=== PATIENT | male | born 1950 | race Caucasian/White ===

== ENCOUNTER 2024-02-09 11:37 | Inpatient (IN) ==
[2024-02-09 12:25] LABS: Basophils # (auto) 0.08 K/uL (0.00-0.20); Basophils % (auto) 0.8 %; Eosinophils # (auto) 0.15 K/uL (0.00-0.50); Eosinophils % (auto) 1.4 %; Hematocrit (blood only) 46.9 % (42.0-52.0); Hemoglobin 14.6 g/dl (14.0-18.0); Immature Granulocytes # (auto) 0.09 K/uL (0.01-0.20); Immature Granulocytes % (auto) 0.9 %; Lymphocytes # (auto) 2.29 K/uL (1.20-3.40); Lymphocytes % (auto) 21.9 %; Mean Corpuscular Hemoglobin 26.6 pg (25.0-34.0); Mean Corpuscular Hgb Conc 31.1 g/dL (32.0-36.0); Mean Corpuscular Volume 85.6 fL (80.0-100.0); Mean Platelet Volume 10.4 fL (9.4-12.4); Monocytes # (auto) 0.92 K/uL (0.11-0.59); Monocytes % (auto) 8.8 %; Neutrophils # (auto) 6.92 K/uL (1.40-6.50); Neutrophils % (auto) 66.2 %; Platelet Count 218 K/uL (130-400); RDW Coefficient of Variation 16.4 % (11.5-14.5); RDW Standard Deviation 50.5 fL (36.4-46.3); Red Blood Count 5.48 M/uL (4.70-6.10); White Blood Count 10.45 K/ul (4.8-10.8)
--- NOTE | 2024-02-09 12:36 | XRay Report ---
XR chest 1V not portable HISTORY: 74 years-old Male Chest pain, nonspecific COMPARISON: None TECHNIQUE: PA view of the chest FINDINGS: Cardiac silhouette is enlarged. No overt pulmonary edema, pneumothorax or pleural effusion. Mild ill- defined right infrahilar opacities. Bones appear grossly intact. IMPRESSION: 1. Cardiomegaly without pulmonary edema. 2. Mild right infrahilar opacities may represent atelectasis versus pneumonia. ACT 112: Negative or not required by law. The above report was generated using voice recognition software. It may contain grammatical, syntax o r spelling errors. Electronically signed by: Medhat Hunt M.D. 02/09/2024 12:34 PM
[2024-02-09 12:41] LABS: Albumin Globulin Ratio 1.6 (0.9-2); Albumin Level 4.7 gm/dl (3.4-5.0); BUN Creatinine Ratio 27.2 (10-20); Calcium 10.3 mg/dl (8.6-10.3); Creatinine Clr Calc Pharmacy 73.3 ml/min; Globulin 2.9 gm/dl (2.5-4.0); Total Protein 7.6 gm/dl (6.0-8.3)
[2024-02-09 12:47] LABS: Troponin I High Sensitivity 23.6 pg/ml (0-20)
[2024-02-09 12:51] LABS: INR 1.1 (0.9-1.1); Partial Thromboplastin Time 27 Seconds (21-31); Prothrombin Time 11.6 Seconds (9.0-12.0)
--- NOTE | 2024-02-09 16:07 | History & Physical Report ---
<Statement entered by Mark Anthony Johnston, - 02/09/24 17:20> I have seen and examined the patient and have discussed the case with the provider above. I have reviewed the advanced practitioner's documentation, and I agree with, and take responsibility for that plan of care. Patient seen while on the monitored unit. Patient reports that sublingual nitroglycerin completely resolved his pain. Physical exam: Lungs: Decreased breath sounds, no wheezes CV: S1-S2 irregular, systolic murmur Reviewed diagnostics Troponins mildly elevated Patient with a convincing history for unstable angina. Discussed plan of care as outlined below with KIMBERLY Date of Service February 09, 2024 Assessment & Plan (1) Atypical chest pain: (2) Atrial flutter: (3) Moderate aortic valve stenosis: (4) Hypertension: (5) Hyperlipidemia: Plan This is a 74-year-old male who has a significant past medical history of paroxysmal atrial fibrillation/flutter with hx of CTI ablation 04/2023, hypertrophic cardiomyopathy, HTN, HLD, aortic valve stenosis, gout, history of retinal detachment who presents to ED secondary to chest pain. He follows with [facility]. His last echocardiogram was 12/01/23 with EF 65% which read a severely enlarged left atrium, moderate AV stenosis, mild AVR and mild MR. Atypical Chest Pain Persistent Atrial flutter/fibrillation with previous hx of CTI ablation 04/2023- rate controlled Moderate aortic valve stenosis Elevated troponin admit to PCU concerning sx of angina in setting of risk factors including HTN, HLD, overweight continue metoprolol, losartan and eliquis NPO after midnight for possible stress test cycle trops will repeat echo for WMA, last echo 11/30 mod , persevered LVEF lipids, a1c in a.m. HTN: chronic, stable, mildly elevated in ED, continue metoprolol, losartan HLD: chronic, stable continue statin Alcohol use: pt admits to drinking 2-3 beers/day. he has gone a period of time w/o it and has not had any adverse effect, monitor. DVT ppx: eliquis FULL CODE PCP: Micah Dispo: admit to PCU Pt was seen and examined in collaboration with Dr. Johnston, please see addendum I spent a total of 60 minutes reviewing notes, outpatient records, labs, medication, coordinating, documenting and providing care for this patient excluding time spent in the performance of separately billed services. History of Present Illness Chief Complaint: Chest pain. Primary Care Provider: Rashawn Obrien MD This is a 74-year-old male who has a significant past medical history of paroxysmal atrial fibrillation/flutter with hx of CTI ablation 04/2023, hypertrophic cardiomyopathy, HTN, HLD, aortic valve stenosis, gout, history of retinal detachment who presents to ED secondary to chest pain. He follows with [facility]. His last echocardiogram was 12/01/23 with EF 65% which read a severely enlarged left atrium, moderate AV stenosis, mild AVR and mild MR. He was last seen in cardiology clinic in December. He was noted to be back in atrial fibrillation although not symptomatic. Per documentation he does have chronic shortness of breath and dizziness. At this point in time there was no changes in his medications and a repeat echo was to be done in approximately 6 months. Of note patient was recently transition from warfarin to Eliquis 2 weeks ago. He has not missed any medications. He reports that he presents to ED today due to having 2 episodes of chest pain over the last 2 days. He was out hunting with his son. He walked approximately 1.5 miles and had to have frequent stops due to being shortness of breath. When he was resting he developed substernal chest pain that was described as, "[id number] on his chest," that radiated to his left neck and left shoulder. Pain was a 20 out of 10 when it started this morning. It lasted approximately 2 hours. He also reports feeling more short of breath than usual. He states right now he is still feeling the discomfort as a 4 out of 10. He denies any radiating symptoms at this time. He denies any recent illness. He denies his chest pain getting worse with any particular position or movement. He did not eat anything unusual. His symptoms are not made worse with deep breathing. He denies any fever, chills, sweats, lightheadedness, dizziness, cough, hemoptysis, diaphoresis, nausea, vomiting, abdominal pain or change in his bowel or urinary habits. Patient's outpatient records were reviewed. History also obtained from and family member at bedside. Denies tobacco use. He does drink 2-3 beers a day. He has gone 2-3 days w/o and has not had any signs of withdrawal Allergies Allergy/AdvReac Type Severity Reaction Status Date / Time No Known Allergies Allergy Unknown Verified 10/15/21 06:55 Home Medications Medication Instructions Recorded Confirmed Type allopurinol 300 mg tablet 300 mg PO QAM 12/07/19 02/09/24 History atorvastatin 40 mg tablet 40 mg PO QAM 12/07/19 02/09/24 History metoprolol succinate 100 mg 100 mg PO QAM 12/07/19 02/09/24 History tablet,extended release 24 hr losartan 100 mg tablet 100 mg PO DAILY 05/06/23 02/09/24 History multivit,Ca,min-iron 8 mg-folic 1 tab PO DAILY 05/06/23 02/09/24 History acid 200 mcg-lycopene 600 mcg tablet (Centrum Men) prednisolone acetate 1 % eye 1 drp ophthalmic (eye) DAILY 05/06/23 02/09/24 History drops,suspension sildenafil 100 mg tablet 100 mg PO DAILY PRN Erectile 05/06/23 02/09/24 History Dysfunction apixaban 5 mg tablet (Eliquis) 5 mg PO BID 02/09/24 02/09/24 History Past Med/Surg History Problem List (Updated 02/09/24 @ 16:55 by Brynn Jang PA-C) Moderate aortic valve stenosis Atrial flutter Atypical chest pain Encounter for pre-operative examination Obesity Medical History Heart valve disease on [place] for this per patient for prevention Gout CAD (coronary artery disease) follows Dr. 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 Beliefs That Will Affect Care: None Current Living Situation: Spouse Feels Safe at Home: Yes Assistive Devices: Denture - Upper and Denture - Lower Review of Systems Review of Systems: All systems reviewed & are unremarkable except as noted in HPI & below Physical Exam Physical Exam: Constitutional: WD/WN, vitals as above, NAD, sitting up in bed, pleasant, conversing easily Head: Normocephalic, Atraumatic Eyes: PERRL, conjunctivae normal, anicteric sclerae ENMT: external ear and nose normal, oropharynx normal Neck: trachea midline, no thyromegaly normal visual inspection Respiratory: normal respiratory effort, lungs clear to auscultation, no wheeze, rales, rhonchi. Normal insp/exp effort, no accessory muscle use Cardiovascular: RRR, no murmur, no edema Vessels: no JVD or carotid bruit Chest: normal inspection of chest Abdomen: normal bowel sounds, soft, nontender, no hepatosplenomegaly Musculoskeletal: no cyanosis or clubbing, extremities motor strength 5/5 Skin: no rashes, warm and dry normal turgor Neurologic: PERRL, EOMI, accommodation nl, no face palsy, no dysarthria CN's II-XI intact bilaterally and moves all extremities Psychiatric: A+Ox3, euthymic affect Lymphatic: no cervical or axillary lymphadenopathy : deferred Results & Data Results & Data Vital Signs (Past 12 Hours) Vital Signs Temp Pulse Pulse Resp BP BP Pulse Ox 02/09/24 15:23 64 02/09/24 15:22 66 96 02/09/24 15:22 66 18 152/81 H 96 02/09/24 11:44 36.6 C 66 20 148/92 H 96 O2 Del Method 02/09/24 15:23 02/09/24 15:22 Room Air 02/09/24 15:22 Room Air 02/09/24 11:44 Room Air Laboratory Results I have independently reviewed and interpreted patient's admitting labs including CBC, CMP, PTT, PT/INR, mag and troponin. Diagnostic Findings Chest X-Ray 02/09/24 11:47 XR chest 1V not portable HISTORY: 74 years-old Male Chest pain, nonspecific COMPARISON: None TECHNIQUE: PA view of the chest FINDINGS: Cardiac silhouette is enlarged. No overt pulmonary edema, pneumothorax or pleural effusion. Mild ill-defined right infrahilar opacities. Bones appear grossly intact. IMPRESSION: 1. Cardiomegaly without pulmonary edema. 2. Mild right infrahilar opacities may represent atelectasis versus pneumonia. ACT 112: Negative or not required by law. The above report was generated using voice recognition software. It may contain grammatical, syntax or spelling errors. Electronically signed by: Medhat Hunt M.D. 02/09/2024 12:34 PM ECG Additional Comments: I have independently reviewed and interpreted patient's admitting EKG which revealed: atrial fibrillation 63 bpm, ST depressions V3-V6 which are present on previous ecg but more pronounced today. COVID-19 Results Results COVID-19 Adm Lab Results: RBC 5.48 M/uL (4.70-6.10) 02/09/24 WBC 10.45 K/ul (4.8-10.8) 02/09/24 Hgb 14.6 g/dl (14.0-18.0) 02/09/24 Hct 46.9 % (42.0-52.0) 02/09/24 Plt Count 218 K/uL (130-400) 02/09/24 Neutrophils (%) (Auto) 66.2 % 02/09/24 Lymphocytes (%) (Auto) 21.9 % 02/09/24 Monocytes # (Auto) 0.92 K/uL (0.11-0.59) H 02/09/24 Eosinophils # (Auto) 0.15 K/uL (0.00-0.50) 02/09/24 Immature Granulocyte % (Auto) 0.9 % 02/09/24 Neutrophils # (Auto) 6.92 K/uL (1.40-6.50) H 02/09/24 Lymphocytes # (Auto) 2.29 K/uL (1.20-3.40) 02/09/24 Monocytes # (Auto) 0.92 K/uL (0.11-0.59) H 02/09/24 Eosinophils # (Auto) 0.15 K/uL (0.00-0.50) 02/09/24 Basophils # (Auto) 0.08 K/uL (0.00-0.20) 02/09/24 Immature Granulocyte # (Auto) 0.09 K/uL (0.01-0.20) 4 Na 139 mmol/L (136-145) 02/09/24 K 4.0 mmol/L (3.5-5.1) 02/09/24 Cl 103 mmol/L (98-107) 02/09/24 CO2 30 mmol/L (21-32) 02/09/24 Anion Gap 6 (3-11) 02/09/24 BUN 28 mg/dl (6-23) H 02/09/24 Creatinine 1.03 mg/dl (0.6-1.4) 02/09/24 BUN/Creatinine Ratio 27.2 (10-20) H 02/09/24 Glucose Level 95 mg/dl (70-99(Fasting)) 02/09/24 Ca 10.3 mg/dl (8.6-10.3) 02/09/24 Total Bilirubin 1.0 mg/dl (0.2-1.0) 02/09/24 AST/SGOT 28 U/L (13-39) 02/09/24 ALT/SGPT 32 U/L (7-52) 02/09/24 Alkaline Phosphatase 67 U/L (34-104) 02/09/24 Total Protein 7.6 gm/dl (6.0-8.3) 02/09/24 Albumin 4.7 gm/dl (3.4-5.0) 02/09/24 Globulin 2.9 gm/dl (2.5-4.0) 02/09/24 Albumin/Globulin Ratio 1.6 (0.9-2) 02/09/24 PTT 27 Seconds (21-31) 02/09/24 INR 1.1 (0.9-1.1) 02/09/24 Chest X-Ray 02/09/24 Code Status & VTE Plan Code Status FULL CODE VTE Prophylaxis Plan VTE Prophylaxis will be ordered: No Reason for no VTE drug order: Treatment not indicated
[2024-02-09] MEDS: NITROGLYCERIN SL 0.4 MG/TAB TAB SL STA (16:35)
--- NOTE | 2024-02-09 16:38 | Emergency Department Note ---
Impression & Plan Atypical chest pain, Chest pain ED Provider Note NAME: SHAY ROOT AGE: 74 SEX: M : 1950 ARRIVES VIA: Walk-In INFORMANT: Patient, ED PROVIDER(S): Delfina Dolan MD CHIEF COMPLAINT: Chest pain HPI: This is a 74-year-old male presenting for chest pain. Patient notes that he has pins and needle type sensation across his chest. This began yesterday. His history of atrial fibrillation on Eliquis. He has previous ablations for this. He has not had a recent echo or stress test. His family then tried ginseng that he has had radiation of pain into his neck and left arm as well. He is on some shortness of breath, at rest as well as specifically with ambulation/exertion. This never happened before. Patient has had no previous history of DC. ROS: See above HPI for pertinent positives & negatives. A total of 10 systems reviewed and were otherwise negative. PAST MEDICAL HISTORY: See Below PAST SURGICAL HISTORY: See Below FAMILY HISTORY: See Below SOCIAL HISTORY: See Below HOME MEDICATIONS: See Below ALLERGIES: See Below VITALS: See Below PHYSICAL EXAMINATION: General: resting comfortably in no acute distress Head: Normocephalic and atraumatic Eyes: Normal inspection, extraocular muscles intact Ear, nose, throat: Normal external exam Neck: Normal range of motion Respiratory: lungs clear to auscultation bilaterally Cardiovascular: Regular rate/rhythm, no murmur GI: soft, nontender, no guarding or rebound Extremities: nontender, moves all extremities Neuro: The patient awake and alert, appropriately conversive, no focal deficits, symmetric faces Skin: Warm, dry, and intact MEDICAL DECISION MAKING: This is a 74-year-old male presenting for chest pain. Concern for ACS clinically. Also consider atrial fibrillation, PE, dissection. -ECG independently interpreted by me with likely atrial flutter at a rate of 63, normal axis, normal QRS, normal QTc, significant ST segment depression/T wave inversion in the lateral leads, appears to be baseline no ST segment elevations consistent with STEMI criteria -Bloodwork is reviewed showing slightly elevated troponin. Otherwise bloodwork is reviewed showing no significant leukocytosis, anemia, electrolyte or creatinine abnormality -Chest x-ray as Independently interpreted by me reveals cardiomegaly, no pleural effusion -With patient's current chest pain, ration of pain into his left neck and arm in addition to previous EKG, do believe admission is currently required for further ACS rule out. -Discussed care with hospital service for admission. Differential diagnosis: ACS, PE, dissection, pneumonia Independent History obtained from: Daughter and Diagnostics interpreted by me: ECG: See above Cardiac Monitoring: An order was placed for continuous cardiac monitoring. The monitor shows a rate of 64 with atrial flutter rhythm. Past Med/Surg History Problem List (Updated 02/09/24 @ 18:05 by Delfina Dolan MD) Chest pain (Acute) Moderate aortic valve stenosis Atrial flutter Atypical chest pain (Acute) Encounter for pre-operative examination Obesity Medical History Heart valve disease on [facility] for this per patient for prevention Gout CAD (coronary artery disease) follows Dr. 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); Do You Dip or Chew Tobacco: No; Hx Alcohol Use: Yes Alcohol type: beer Hx Substance Use: No Preferred Language: Burundian Communication Ability: Effective Medicine Tech Required: No Beliefs That Will Affect Care: None Current Living Situation: Spouse Feels Safe at Home: Yes Assistive Devices: Denture - Upper and Denture - Lower Allergies Allergies Allergy/AdvReac Type Severity Reaction Status Date / Time No Known Allergies Allergy Unknown Verified 10/15/21 06:55 Home Meds Home Medications Medication Instructions Recorded Confirmed allopurinol 300 mg tablet 300 mg PO QAM 12/07/19 02/09/24 atorvastatin 40 mg tablet 40 mg PO QAM 12/07/19 02/09/24 metoprolol succinate 100 mg 100 mg PO QAM 12/07/19 02/09/24 tablet,extended release 24 hr losartan 100 mg tablet 100 mg PO DAILY 05/06/23 02/09/24 multivit,Ca,min-iron 8 mg-folic 1 tab PO DAILY 05/06/23 02/09/24 acid 200 mcg-lycopene 600 mcg tablet (Centrum Men) prednisolone acetate 1 % eye 1 drp ophthalmic (eye) DAILY 05/06/23 02/09/24 drops,suspension sildenafil 100 mg tablet 100 mg PO DAILY PRN Erectile 05/06/23 02/09/24 Dysfunction apixaban 5 mg tablet (Eliquis) 5 mg PO BID 02/09/24 02/09/24 Results & Data (ED) Vital Signs Vital Signs - 24 hr 02/09/24 11:44 02/09/24 15:22 02/09/24 15:22 Temperature 36.6 C Temperature Source Temporal Artery Scan Pulse Rate 66 66 Pulse Rate [Apical] 66 Respiratory Rate 20 18 Respiratory Effort / Characteristics Non-Labored Spontaneous Non-Labored Spontaneous Respiratory Depth Normal Normal Respiratory Pattern Regular Regular Blood Pressure 148/92 H Blood Pressure [Left Arm] 152/81 H Blood Pressure Mean 110 Blood Pressure Mean [Left Arm] 104 Pulse Oximetry 96 96 96 Oxygen Delivery Method Room Air Room Air Room Air Sepsis Recent Fever Within 48 Hours No Sepsis New/Unexplained Change in Mental Status No Sepsis Action Taken by Nursing No Action Required 02/09/24 15:23 Temperature Temperature Source Pulse Rate 64 Pulse Rate [Apical] Respiratory Rate Respiratory Effort / Characteristics Respiratory Depth Respiratory Pattern Blood Pressure Blood Pressure [Left Arm] Blood Pressure Mean Blood Pressure Mean [Left Arm] Pulse Oximetry Oxygen Delivery Method Sepsis Recent Fever Within 48 Hours Sepsis New/Unexplained Change in Mental Status Sepsis Action Taken by Nursing Laboratory Data 02/09/24 11:54 02/09/24 11:54 Lab Results 02/09/24 02/09/24 Range/Units 11:54 15:20 WBC 10.45 (4.8-10.8) K/ul RBC 5.48 (4.70-6.10) M/uL Hgb 14.6 (14.0-18.0) g/dl Hct 46.9 (42.0-52.0) % MCV 85.6 (80.0-100.0) fL MCH 26.6 (25.0-34.0) pg MCHC 31.1 L (32.0-36.0) g/dL RDW Std Deviation 50.5 H (36.4-46.3) fL RDW Coeff of Shahnaz 16.4 H (11.5-14.5) % Plt Count 218 (130-400) K/uL MPV 10.4 (9.4-12.4) fL Immature Gran % (Auto) 0.9 % Neut % (Auto) 66.2 % Lymph % (Auto) 21.9 % [place] % (Auto) 8.8 % Eos % (Auto) 1.4 % Baso % (Auto) 0.8 % Neut # (Auto) 6.92 H (1.40-6.50) K/uL Lymph # (Auto) 2.29 (1.20-3.40) K/uL [place] # (Auto) 0.92 H (0.11-0.59) K/uL Eos # (Auto) 0.15 (0.00-0.50) K/uL Baso # (Auto) 0.08 (0.00-0.20) K/uL Immature Gran # (Auto) 0.09 (0.01-0.20) K/uL PT 11.6 (9.0-12.0) Seconds INR 1.1 (0.9-1.1) APTT 27 (21-31) Seconds PTT Ratio 1.0 Sodium 139 (136-145) mmol/L Potassium 4.0 (3.5-5.1) mmol/L Chloride 103 (98-107) mmol/L Carbon Dioxide 30 (21-32) mmol/L Anion Gap 6 (3-11) BUN 28 H (6-23) mg/dl Creatinine 1.03 (0.6-1.4) mg/dl Est Cr Clr Drug Dosing 73.3 ml/min eGFR 76.70 BUN/Creatinine Ratio 27.2 H (10-20) Glucose 95 (70-99(Fasting)) mg/dl Calcium 10.3 (8.6-10.3) mg/dl Total Bilirubin 1.0 (0.2-1.0) mg/dl AST 28 (13-39) U/L ALT 32 (7-52) U/L Alkaline Phosphatase 67 (34-104) U/L Troponin I High Sens 23.6 H 25.3 H (0-20) pg/ml Total Protein 7.6 (6.0-8.3) gm/dl Albumin 4.7 (3.4-5.0) gm/dl Globulin 2.9 (2.5-4.0) gm/dl Albumin/Globulin Ratio 1.6 (0.9-2) Administered Medications Discontinued Medications Nitroglycerin (Nitroglycerin Sl 0.4 Mg/Tab Tab) 0.4 mg SL NOW STA Stop: 02/09/24 16:28 Last Admin: 02/09/24 16:35 Dose: 0.4 mg Documented By: [facility] Imaging Data Radiologist's Impression: Chest X-Ray 02/09/24 11:47 XR chest 1V not portable HISTORY: 74 years-old Male Chest pain, nonspecific COMPARISON: None TECHNIQUE: PA view of the chest FINDINGS: Cardiac silhouette is enlarged. No overt pulmonary edema, pneumothorax or pleural effusion. Mild ill-defined right infrahilar opacities. Bones appear grossly intact. IMPRESSION: 1. Cardiomegaly without pulmonary edema. 2. Mild right infrahilar opacities may represent atelectasis versus pneumonia. ACT 112: Negative or not required by law. The above report was generated using voice recognition software. It may contain grammatical, syntax or spelling errors. Electronically signed by: Medhat Hunt M.D. 02/09/2024 12:34 PM Discharge Plan Visit Data Chief Complaint: Chest Pain Stated Complaint: CHEST PAINS ED Provider: Delfina Dolan Discharge Problem: Atypical chest pain, Chest pain Patient Disposition: Admitted As Inpatient Discharge Instructions Interventions: ED Discharge Assessment Last Done: 02/09/24 16:48
[2024-02-09] MEDS ORDERED: ACETAMINOPHEN 325 MG TAB PO PRN (17:09)
[2024-02-09] MEDS ORDERED: POLYETHYLENE (MIRALAX) 17 GM PACK PO PRN (17:09)
[2024-02-09] MEDS ORDERED: ONDANSETRON INJ 2 MG/ML 2 ML VIAL IV PRN (17:09)
[2024-02-09] MEDS: APIXABAN 5 MG TABLET PO SCH (20:22)
[2024-02-10 06:48] LABS: Basophils # (auto) 0.07 K/uL (0.00-0.20); Basophils % (auto) 0.7 %; Eosinophils # (auto) 0.19 K/uL (0.00-0.50); Eosinophils % (auto) 1.9 %; Hematocrit (blood only) 43.7 % (42.0-52.0); Hemoglobin 13.7 g/dl (14.0-18.0); Immature Granulocytes # (auto) 0.07 K/uL (0.01-0.20); Immature Granulocytes % (auto) 0.7 %; Lymphocytes # (auto) 1.98 K/uL (1.20-3.40); Lymphocytes % (auto) 20.2 %; Mean Corpuscular Hemoglobin 26.7 pg (25.0-34.0); Mean Corpuscular Hgb Conc 31.4 g/dL (32.0-36.0); Mean Corpuscular Volume 85.2 fL (80.0-100.0); Mean Platelet Volume 10.6 fL (9.4-12.4); Monocytes # (auto) 1.03 K/uL (0.11-0.59); Monocytes % (auto) 10.5 %; Neutrophils # (auto) 6.44 K/uL (1.40-6.50); Platelet Count 192 K/uL (130-400); RDW Coefficient of Variation 16.3 % (11.5-14.5); RDW Standard Deviation 50.1 fL (36.4-46.3); Red Blood Count 5.13 M/uL (4.70-6.10); White Blood Count 9.78 K/ul (4.8-10.8)
[2024-02-10 07:04] LABS: Albumin Globulin Ratio 1.4 (0.9-2); Albumin Level 3.8 gm/dl (3.4-5.0); Bilirubin,Total 1.2 mg/dl (0.2-1.0); Calcium 9.2 mg/dl (8.6-10.3); Chol HDL Ratio 4.5 (0-5); Creatinine Clr Calc Pharmacy 77.9 ml/min; Globulin 2.8 gm/dl (2.5-4.0); Potassium 4.1 mmol/L (3.5-5.1); Total Protein 6.6 gm/dl (6.0-8.3)
[2024-02-10 07:08] LABS: Troponin I High Sensitivity 20.7 pg/ml (0-20)
[2024-02-10 07:11] LABS: Estimated Average Glucose 120 mg/dl; Hemoglobin A1C 5.8 % (4.5-5.6)
[2024-02-10] MEDS: allopurinoL 300 MG TAB PO SCH (08:00)
[2024-02-10] MEDS: LOSARTAN POTASSIUM 50 MG TAB PO SCH (08:00)
[2024-02-10] MEDS: ATORVASTATIN 40 MG TAB PO SCH (08:00)
[2024-02-10] MEDS: METOPROLOL SUCC 50MG EXT REL TAB PO SCH (08:03)
[2024-02-10] MEDS: MULTIVITAMIN TAB PO SCH (08:04)
[2024-02-10] MEDS: prednisoLONE acetate 1% OP SUSP 5 ML BTL OPR SCH (08:04)
--- NOTE | 2024-02-10 09:24 | Electrocardiogram Report ---
Test Reason : Blood Pressure : */* mmHG Vent. Rate : 63 BPM Atrial Rate : * BPM P-R Int : * ms QRS Dur : 84 ms QT Int : 452 ms P-R-T Axes : * 53 220 degrees QTcB Int : 462 ms Atrial fibrillation Prolonged QT Abnormal ECG When compared with ECG of 06-May-2023 15:58, Atrial fibrillation has replaced Sinus rhythm Confirmed by Cristian Serna ([id number]) on 02/10/2024 9:23:38 AM Referred By: Confirmed By: Cristian Serna
--- NOTE | 2024-02-10 09:57 | Cardiology Consultation ---
Date of Consultation February 10, 2024 Assessment & Plan (1) Chest pain: (2) Moderate aortic valve stenosis: Plan Assessment: 74 year old male admitted for chest pain. mild flat elevation in troponin and known A-fib, with last ablation in 04/2023. Cardiology requested for further evaluation. Case has been discussed with Dr. Santos. Further recommendations regarding plan of care as per his assessment. I spent a total of 40 minutes on the date of service in preparation, delivery, documentation of the care provided to the patient excluding any time spent in the performance of separately billed services. SHADY Arita [facility] Cardiology [facility] Supervising Physician Co-Signing Physician Notes Attending Staff: 74 yo man presenting with chest pain Troponin:23.6, 25, 20.7 EKG: T wave inversions V3- V6 (old) CXR: no CHF, no major cardiomegaly LDL 81 Med Hx: PAF PVI s/p Ablation HTN Hyperlipidemia Aortic Stenosis Gout Retinal Detachment Plans: * + afib on DOAC * By exam, patient appears to have significant * Awaiting final ECHO read * Patient also has multiple risk factors for CAD * Suspect patient will need Coronary Angiography and evaluation of aortic valve for potential intervention; DOAC would need to be held * Continue Statin; LDL 81 * Start ASA 81 mg po per day * SBP 124 mmHg, HR 78 * Continue Losartan 100 mg po per day * Continue Toprol 100 mg po per day * 61 min spent addressing challenges, educating and advancing daily plan of care Yang Santos History of Present Illness Reason for Consultation: Chest pain, "Consider stress test" Requesting Physician: [facility] hospitalist Attending Physician: Levi Chandra MD History of Present Illness HPI: Patient is a 74 year old male with PMHx significant for P. A-fib with prior CTI ablation 04/2023, HTN, HLD, Aortic stenosis, Gout and history of retinal detachment that presented to the ER on 02/09/24 with chest pain. Recent OP echo 12/01/23 as noted with LVEF 65%, severely enlarged Left atrium, moderate , mild MR and Mild AI Repeat echocardiogram pending EKG upon arrival Atrial fibrillation with ST/T wave abnormality in the anterior and lateral leads. Rate 63 bpm Chest xray: IMPRESSION: 1. Cardiomegaly without pulmonary edema. 2. Mild right infrahilar opacities may represent atelectasis versus pneumonia. HST flat trend 23.6/25.3/23.6/20.7 Allergies Allergy/AdvReac Type Severity Reaction Status Date / Time No Known Allergies Allergy Unknown Verified 10/15/21 06:55 Home Medications Medication Instructions Recorded Confirmed Type allopurinol 300 mg tablet 300 mg PO QAM 12/07/19 02/09/24 History atorvastatin 40 mg tablet 40 mg PO QAM 12/07/19 02/09/24 History metoprolol succinate 100 mg 100 mg PO QAM 12/07/19 02/09/24 History tablet,extended release 24 hr losartan 100 mg tablet 100 mg PO DAILY 05/06/23 02/09/24 History multivit,Ca,min-iron 8 mg-folic 1 tab PO DAILY 05/06/23 02/09/24 History acid 200 mcg-lycopene 600 mcg tablet (Centrum Men) prednisolone acetate 1 % eye 1 drp ophthalmic (eye) DAILY 05/06/23 02/09/24 History drops,suspension sildenafil 100 mg tablet 100 mg PO DAILY PRN Erectile 05/06/23 02/09/24 History Dysfunction apixaban 5 mg tablet (Eliquis) 5 mg PO BID 02/09/24 02/09/24 History Patient History Medical History Heart valve disease on [facility] for this per patient for prevention Gout CAD (coronary artery disease) follows Dr. Concepcion Hyperlipidemia Hypertension Surgical History History of tooth extraction History of colonoscopy Hx of bilateral cataract extraction Social History Smoking Status: Never smoker Second Hand Exposure: No; Do You Dip or Chew Tobacco: No; Hx Alcohol Use: No Hx Substance Use: No Preferred Language: [place] Citizen Communication Ability: Effective Rnp Required: No Beliefs That Will Affect Care: None Current Living Situation: Family Current Living Situation Comment: Mobile Home with Family Other Information That Helps Us Care for You: No Feels Safe at Home: Yes Assistive Devices: Denture - Upper and Denture - Lower Review of Systems Review of Systems: All systems reviewed & are unremarkable except as noted in HPI & below Physical Exam Physical Exam: Physical exam as documented by Dr. Santos Obese JVP at base of neck S1S2 2/6 systolic murmur, murmur runs through S2 Suspect severe CTA B No C/C/E Warm and perfusing Results & Data Vital Signs (Past 12 Hours) Vital Signs Temp Pulse Pulse Resp BP Pulse Ox O2 Del Method 02/10/24 08:00 Room Air 02/10/24 08:00 36.5 C 87 18 137/60 92 Room Air 02/10/24 07:05 66 02/10/24 03:33 36.6 C 71 16 119/74 94 Room Air 02/09/24 23:48 36.4 C L 57 L 16 135/75 94 Room Air 02/09/24 21:56 68 Laboratory Results Cardiac Enzymes 02/09/24 02/09/24 02/09/24 Range/Units 11:54 15:20 20:53 AST 28 (13-39) U/L Troponin I High Sens 23.6 H 25.3 H 23.6 H (0-20) pg/ml 02/10/24 Range/Units 06:09 AST 25 (13-39) U/L Troponin I High Sens 20.7 H (0-20) pg/ml Coagulation 02/09/24 Range/Units 11:54 PT 11.6 (9.0-12.0) Seconds APTT 27 (21-31) Seconds Lipids 02/10/24 Range/Units 06:09 Triglycerides 176 H (0-150) mg/dl Cholesterol 149 (0-200) mg/dl HDL Cholesterol 33 mg/dl Cholesterol/HDL Ratio 4.5 (0-5) CBC 02/09/24 02/10/24 Range/Units 11:54 06:09 WBC 10.45 9.78 (4.8-10.8) K/ul RBC 5.48 5.13 (4.70-6.10) M/uL Hgb 14.6 13.7 L (14.0-18.0) g/dl Hct 46.9 43.7 (42.0-52.0) % Plt Count 218 192 (130-400) K/uL Neut # (Auto) 6.92 H 6.44 (1.40-6.50) K/uL Lymph # (Auto) 2.29 1.98 (1.20-3.40) K/uL [place] # (Auto) 0.92 H 1.03 H (0.11-0.59) K/uL Eos # (Auto) 0.15 0.19 (0.00-0.50) K/uL Baso # (Auto) 0.08 0.07 (0.00-0.20) K/uL Comprehensive Metabolic Panel 02/09/24 02/10/24 Range/Units 11:54 06:09 Sodium 139 139 (136-145) mmol/L Potassium 4.0 4.1 (3.5-5.1) mmol/L Chloride 103 103 (98-107) mmol/L Carbon Dioxide 30 30 (21-32) mmol/L BUN 28 H 24 H (6-23) mg/dl Creatinine 1.03 0.96 (0.6-1.4) mg/dl Glucose 95 95 (70-99(Fasting)) mg/dl Calcium 10.3 9.2 (8.6-10.3) mg/dl AST 28 25 (13-39) U/L ALT 32 24 (7-52) U/L Alkaline Phosphatase 67 53 (34-104) U/L Total Protein 7.6 6.6 (6.0-8.3) gm/dl Albumin 4.7 3.8 (3.4-5.0) gm/dl Intake and Output 02/09/24 02/10/24 02/10/24 22:59 06:59 14:59 Intake Total 250 / 250 Balance 250 / 250 Intake: Oral 250 / 250 Other: Other Intake Source NPO # Unmeasured Voids 2 1 Weight 98.883 kg 98.4 kg Weight Measurement Method Built in [facility] Built in [facility]
--- NOTE | 2024-02-10 19:50 | Hospitalist Progress Note ---
Date of Service February 10, 2024 Assessment & Plan (1) Atypical chest pain: (2) Atrial flutter: (3) Moderate aortic valve stenosis: (4) Hypertension: (5) Hyperlipidemia: Plan This is a 74-year-old male who has a significant past medical history of paroxysmal atrial fibrillation/flutter with hx of CTI ablation 04/2023, hypertrophic cardiomyopathy, HTN, HLD, aortic valve stenosis, gout, history of retinal detachment who presents to ED secondary to chest pain. He follows with [facility]iology. His last echocardiogram was 12/01/23 with EF 65% which read a severely enlarged left atrium, moderate AV stenosis, mild AVR and mild MR. Atypical Chest Pain Persistent Atrial flutter/fibrillation with previous hx of CTI ablation 04/2023- rate controlled Moderate aortic valve stenosis Elevated troponin admitted to PCU concerning sx of angina in setting of risk factors including HTN, HLD, overweight continue metoprolol, losartan and eliquis right now pt NPO for possible stress test Echo ordered and pending, last Echo 11/30 mod , persevered LVEF fasting lipids, LDL 81 Cardiology consulted, appreciate their recs HTN: chronic, stable, mildly elevated in ED, continue metoprolol, losartan HLD: chronic, stable continue statin Alcohol use: pt admits to drinking 2-3 beers/day. he has gone a period of time w/o it and has not had any adverse effect, monitor. DVT ppx: eliquis FULL CODE PCP: Dr. Obrien Dispo: PCU Admission and Anticipated Discharge Date Admission Date: February 09, 2024 Subjective Pt seen in follow up of chest pain Currently sitting up in bed in NAD, CP resolved in ED after giving nitro Family present at the bedside Pt reports he felt dizzy, and short of breath when he had the chest pain, currently feels fairly well Cardiology consulted Review of Systems Review of Systems: All systems reviewed & are unremarkable except as noted in Subjective Physical Exam Physical Exam: Constitutional: WD/WN obese M in NAD Head: Normocephalic, Atraumatic Eyes: PERRL, conjunctivae normal, anicteric sclerae ENMT: external ear and nose normal Neck: supple Respiratory: normal respiratory effort, lungs clear to auscultation, no wheeze, rales, rhonchi. Normal insp/exp effort, no accessory muscle use Cardiovascular: RRR, + syst. murmur Chest: normal inspection of chest Abdomen: normal bowel sounds, soft, nontender, obese Musculoskeletal: moves extremities Skin: warm, dry Neurologic: PERRL, EOMI, no face palsy, no dysarthria, moves all extremities Psychiatric: A+Ox3, euthymic affect Results & Data Results & Data Vital Signs (Past 12 Hours) Vital Signs Temp Pulse Pulse Resp BP Pulse Ox O2 Del Method 02/10/24 16:05 66 02/10/24 16:00 36.7 C 85 18 118/70 98 Room Air 02/10/24 11:00 36.5 C 78 16 124/63 96 Room Air 02/10/24 08:00 Room Air 02/10/24 08:00 36.5 C 87 18 137/60 92 Room Air Laboratory Results 02/10/24 02/09/24 Range/Units 06:09 20:53 WBC 9.78 (4.8-10.8) K/ul RBC 5.13 (4.70-6.10) M/uL Hgb 13.7 L (14.0-18.0) g/dl Hct 43.7 (42.0-52.0) % MCV 85.2 (80.0-100.0) fL MCH 26.7 (25.0-34.0) pg MCHC 31.4 L (32.0-36.0) g/dL RDW Std Deviation 50.1 H (36.4-46.3) fL RDW Coeff of Shahnaz 16.3 H (11.5-14.5) % Plt Count 192 (130-400) K/uL MPV 10.6 (9.4-12.4) fL Immature Gran % (Auto) 0.7 % Neut % (Auto) 66.0 % Lymph % (Auto) 20.2 % [place] % (Auto) 10.5 % Eos % (Auto) 1.9 % Baso % (Auto) 0.7 % Neut # (Auto) 6.44 (1.40-6.50) K/uL Lymph # (Auto) 1.98 (1.20-3.40) K/uL [place] # (Auto) 1.03 H (0.11-0.59) K/uL Eos # (Auto) 0.19 (0.00-0.50) K/uL Baso # (Auto) 0.07 (0.00-0.20) K/uL Immature Gran # (Auto) 0.07 (0.01-0.20) K/uL Sodium 139 (136-145) mmol/L Potassium 4.1 (3.5-5.1) mmol/L Chloride 103 (98-107) mmol/L Carbon Dioxide 30 (21-32) mmol/L Anion Gap 6 (3-11) BUN 24 H (6-23) mg/dl Creatinine 0.96 (0.6-1.4) mg/dl Est Cr Clr Drug Dosing 77.9 ml/min eGFR 83.46 BUN/Creatinine Ratio 25.0 H (10-20) Glucose 95 (70-99(Fasting)) mg/dl Estimat Average Glucose 120 mg/dl Hemoglobin A1c 5.8 H (4.5-5.6) % Calcium 9.2 (8.6-10.3) mg/dl Magnesium 2.0 (1.7-2.4) mg/dl Total Bilirubin 1.2 H (0.2-1.0) mg/dl AST 25 (13-39) U/L ALT 24 (7-52) U/L Alkaline Phosphatase 53 (34-104) U/L Troponin I High Sens 20.7 H 23.6 H (0-20) pg/ml Total Protein 6.6 (6.0-8.3) gm/dl Albumin 3.8 (3.4-5.0) gm/dl Globulin 2.8 (2.5-4.0) gm/dl Albumin/Globulin Ratio 1.4 (0.9-2) Triglycerides 176 H (0-150) mg/dl Cholesterol 149 (0-200) mg/dl LDL Cholesterol, Calc 81 mg/dl VLDL Cholesterol, Calc 35 H (0-30) mg/dl HDL Cholesterol 33 mg/dl Cholesterol/HDL Ratio 4.5 (0-5) Medications Administered Current Inpatient Medications Acetaminophen (Acetaminophen 325 Mg Tab) 650 mg PO Q4H PRN PRN Reason: Pain or Fever Stop: 03/10/24 17:08 Allopurin[facility] ([facility] 300 Mg Tab) [facility] [place]: 03/11/24 08:59 Last Admin: 02/10/24 08:00 Dose: 300 mg Apixaban (Apixaban 5 Mg Tablet) 5 mg PO BID [facility] Stop: 03/10/24 20:59 Last Admin: 02/10/24 08:00 Dose: 5 mg Aspirin (Aspirin 81 Mg Ectab) [facility] [place] Stop: 03/12/24 08:59 Atorvastatin Calcium (Atorvastatin 40 Mg Tab) 40 [facility] [place] Stop: 03/11/24 08:59 Last Admin: 02/10/24 08:00 Dose: 40 mg Losartan Potassium (Losartan Potassium 50 Mg Tab) 100 mg PO DAILY [facility] Stop: 03/11/24 08:59 Last Admin: 02/10/24 08:00 Dose: 100 mg Metoprolol Succinate (Metoprolol Succ 50mg Ext Rel Tab) 100 mg PO [facility] Stop: 03/11/24 08:59 Last Admin: 02/10/24 08:03 Dose: 100 mg Multivitamins (Multivitamin Tab) 1 [facility] [place] Stop: 03/11/24 08:59 Last Admin: 02/10/24 08:04 Dose: 1 tab Ondansetron HCl (Ondansetron Inj 2 Mg/Ml 2 Ml Vial) 4 mg IV Q6H PRN PRN Reason: Nausea Stop: 03/10/24 17:08 Polyethylene Glycol (Polyethylene (Miralax) 17 Gm Pack) 17 gm PO DAILY PRN PRN Reason: Constipation Stop: 03/10/24 17:08 Prednisolone Acetate (Prednisolone Acetate 1% Op Susp 5 Ml Btl) 1 drops OPR DAILY [facility] Stop: 03/11/24 08:59 Last Admin: 02/10/24 08:04 Dose: 1 drops
--- OUTSIDE RECORDS SUMMARY | 2024-02-11 03:29 | External Medical Summary | Summary of Care ---
Author Name Unknown Organization [facility] Address [address] [facility] [address] Phone [phone] Care Team Providers Care Legal Recovery Specialist Name Role Phone Rashawn Obrien MD Primary Care Provider [phone] Encounter Details Date Type Department Care Team (Late st Contact Info) Description 12/28/2023 Telephone Cardiology, [facility] 132 [facility] [place] [address] [facility] 21 [facility] [place] [address] Allergies No known active allergiesdocumented as of this encounter (statuses as of 01/04/2024) Medications Medication Sig Dispensed Refills Start Date End Date Status Ascorbic Acid (VITAMIN C) 500 MG CAPS Take by mouth. Active Multiple Vitamins-Minerals (CENTRUM) Tablet Take 1 Tab by mouth daily. Active Zoster Vac Recomb Adjuvanted 50 MCG/0.5ML Intramuscular Suspension Reconstituted (SHINGRIX) Inject 0.5 mL into a large muscle now and repeat dose in 60 to 180 days 1 Each 1 01/20/2020 Active Sildenafil Citrate 100 MG Oral TabletIndications:O ther male erectile dysfunction Take 1 Tablet by mouth daily as needed for Erectile Dysfunction. 10 Tablet 5 01/22/2021 Active prednisoLONE Acetate 1 % Ophthalmic Suspension (Pred Forte) Instill 1 Drop into both eyes daily. 10 mL 4 03/12/2021 Active Additional Information Patient taking differently:1 Drop Both eyes Daily(AM),Daily right eye, Reported on 05/15/2022 Atorvastatin Calcium 40 MG Oral Tablet (Lipitor)Indication s:Dyslipidemia, goal to be determined Take 1 Tablet by mouth in the morning. 90 Tablet 3 04/29/2023 Active Allopurinol 300 MG Oral Tablet (Zyloprim)Indicatio ns:Gouty arthropathy TAKE 1 TABLET BY MOUTH ONCE DAILY 90 Tablet 2 06/30/2023 Active Sildenafil Citrate 100 MG Oral Tablet (Viagra)Indications :Other male erectile dysfunction Take 1 Tablet by mouth daily as needed for Erectile Dysfunction. 1-4 hours before intercourse, no more than 1 dose in 24 hours. 10 Tablet 5 08/04/2023 Active Warfarin Sodium 5 MG Oral Tablet (Jantoven)Indicatio ns:Hypertrophic cardiomyopathy (HCC),Typical atrial flutter (HCC) take 1/2 tablet by mouth on mondays and fridays and take 1 tablet all other days or as directed by the anticoagulation clinic for a INR goal of 2-3 90 Tablet 3 08/20/2023 Active hydroCHLOROthiazide 25 MG Oral Tablet (Hydrodiuril)Indica tions:Essential hypertension with goal blood pressure less than 130/80 Take 1 Tablet by mouth in the morning. 90 Tablet 1 12/11/2023 Active Losartan Potassium 100 MG Oral Tablet (Cozaar)Indications :Essential hypertension with goal blood pressure less than 130/80 Take 1 Tablet by mouth in the morning. In the morning.. 90 Tablet 1 12/11/2023 Active Metoprolol Succinate ER 100 MG Oral Tablet Extended Release 24 Hour (toPROL XL)Indications:Hype rtrophic cardiomyopathy (HCC),Essential hypertension with goal blood pressure less than 130/80 Take 1 Tablet by mouth in the morning. 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 Carpal tunnel syndrome of left wrist 12/26/2014 Vitamin D deficiency 01/06/2013 Hypertrophic cardiomyopathy 09/19/2011 Dyslipidemia, goal LDL below 100 10/01/2010 Mixed hearing loss, bilateral 01/22/2009 History of colonic polyps 03/06/2008 Overview: adenomatous/repeat colonoscopy in 5 yrs Gout 05/27/2007 ADVANCE DIRECTIVE INFORMATION 12/23/2004 documented as of this encounter (statuses as of 01/04/2024) Resolved Problems Problem Noted Date Diagnosed Date Resolved Date Mild aortic stenosis 06/11/2017 023 Hypertrophic cardiomegaly 12/05/2016 Gout 12/26/2014 12/30/2016 Dysfunction of eustachian tube 01/22/2009 01/07/2018 OTITIS MEDIA,BILAT,INACTIVE 01/22/2009 01/07/2018 Dyspnea and respiratory abnormality 01/22/2009 01/07/2018 Overview: ICD-10 update of inactive term Deviated nasal septum 01/22/20092017 ACUTE URI NOS 04/15/2005 04/27/2008 Overview: Resolved per Benign Acute Dxs Protocol #3 HYPERTROPHIC OBSTRUCTIVE CAR DIOMYOPATHY(aka CARDIOMYOPATHY) 09/25/2003 09/19/2011 Epistaxis 11/22/2002 01/07/2018 Chronic rhinitis 11/22/2002 01/07/2018 Morphea 10/29/2001 01/07/2018 documented as of this encounter (statuses as of 01/04/2024) Immunizations Name Administration Dates Next Due COVID-19 mRNA, LNP-s, No Pre serve, 2-Dose Series (Pfizer) 05/17/2020,04/17/2020 Pneumococcal Conjugate Vacc, 13 Valent (Prevnar) 12/30/2016 Pneumococcal Polysaccharide PPV23 (Pneumovax) 01/07/2018 Seasonal Influenza Vac., MDV , IM, 0.5 mL (Fluzone) 12/19/2013,12/22/2011,12/24/2009 Seasonal Influenza, High Dos e, Trivalent, PF, IM (Fluzone HD) 11/27/2023,12/31/2018 Seasonal Influenza, PF, 6 M & above, IM , (FluLaval or Fluzone) 12/09/2019,12/31/2017,12/02/2016 Seasonal Influenza, Quadriva lent Hd (Fluzone Hd) 11/25/2022,12/17/2021,01/01/2021 Seasonal Influenza, Quadriva lent, No Preserve, IM 12/26/2015,12/26/2014 Seasonal Influenza, Trivalen t, (IIV3), PF, (Fluzone) 12/21/2008 TD, Preservative Free 07/28/2018(Deferre d: Contraindication - Duplicate order),07/28/2018 TDAP, Age 7 and older, IM (Adacel) 11/01/2007 Varicella Zoster Vaccine (Adult) 05/19/2012 documented as of this encounter Social History Tobacco Use Types Packs/Day Years Used Date Smoking Tobacco: Former Cigarettes 0 03/09/1965 - 03/09/1975 Smokeless Tobacco: Never Comments:3-4 cigarettes Alcohol Use Standard Drinks/Week Comments Yes 0 (1 standard drink = 0.6 oz pur e alcohol) 4-5 beers on Sat and Sun PHQ-2 Answer Date Recorded PHQ-2 Score 0 10/19/2019 Utilities Answer Date Recorded Do you have trouble paying y our heating, water, or electric bill? (Adult - for ages 18 years and over) Not on file 08/25/2023 Is your family able to pay t he heat, water, or electric bill? (Household - for ages 0-17 years) Not on file 08/25/2023 Does your family have access to good internet? (Household - for ages 0-17 years) Not on file 08/25/2023 Social Connections Answer Date Recorded How often do you feel lonely or isolated from those around you? (Adult - for ages 18 years and over) Not on file 08/25/2023 Sex and Gender Information Value Date Recorded Sex Assigned at Male 07/08/2018 7:18 AM EDT Gender Identity Male 07/08/2018 7:18 AM EDT Sexual Orientation Straight 07/08/2018 7: 18 AM EDT Job Start Date Occupation Industry Not on file Not on file Not on file documented as of this encounter Miscellaneous Notes * Telephone Encounter - Bambi Oneill, [facility] - 01/04/2024 9:43 AM EDT Returned call to patient, he is approved for AARON Spoke with , they are agreeable to change Warfarin to Eliquis Explained INR must be <2 Pt has INR finger stick appt on 01/21. I have instructed pt to hold Warfarin on 01/19 and 01/20. On 01/21 if INR <2, will have Cristela Terry send in Rx for Eliquis 5 mg BID to pharmacy Bambi Spangler Clinical [facility] Pharmacist Cardiology 01/04/2024,9:48 AM * Telephone Encounter - Carmen Diamond RPh - 01/01/2024 4:06 PM EDT Spoke with . Did call [facility] and sign up Thursday 12/28, has not heard back. Recommended reaching out to [facility] if no contact by Thursday. MTM will follow up Thursday. If approved, plan to transition Warfarin to Eliquis Carmen Diamond PharmD Clinical Pharmacist - Harness Installer [facility] 01/01/2024 4:07 PM * Telephone Encounter - Bambi Oneill RPh - 12/28/2023 11:20 AM EDT Contacts Contact Date/Time Type Contact Phone/Fax 12/28/2023 11:20 AM EDT Phone (Outgoing) Alexis Garcia (Self) [phone] (M) Spoke to Patient Spoke with . Has not yet signed up for AARON, plans to do this today or tomorrow Estimated household income at $39,000 MTM will follow up Thursday. If approved, plan to transition Warfarin to Eliquis Bambi Spangler Clinical [facility] Pharmacist Cardiology 12/28/2023,11:20 AM * Telephone Encounter - MoustaphaBambi root CindyGem - 12/28/2023 11:20 AM EDT ----- Message from Idalmis Mccrary sent at 12/25/2023 1:57 PM EDT ----- Regarding: NOMARK Saw this patient in the clinic today and asked him in his to reach out to [facility] to see if thereeligible. I would like to try to transition him to [facility] if it isn't affordable option. If they are not able to qualify for pace can we see if he qualifies for 1 of the PAP programs through apixaban or Xarelto Thank You SHADY Shanks documented in this encounter Plan of Treatment Upcoming Encounters Date Type Department Care Team (Late st Contact Info) Description 01/22/2024 8:10 AM EST Anticoagulation Pharmacy, [place] [address] [facility] [place] [address] [facility] [address] [facility] [address] 05/06/2024 8:20 AM EST Office Visit [facility] [address] [facility] [phone] Rashawn Obrien MD [address] [facility] [address] 06/17/2024 7:15 AM EDT Cardiac Studies Cardiac Studies, [facility] [address] [facility] [place] [address] 07/05/2024 8:00 AM EDT Office Visit Cardiology, [facility] 132 [facility] [place] [address] Idalmis Mccrary CRNP [address] [place] [address] [place] [address] Scheduled Procedures Name Priority Associated Diagnoses Date/Ti me COLONOSCOPY FLEXIBLE PROXIMAL DIAGNOSTIC Recall History of colon polyps Health Maintenance Due Date Last Done Comments Cologuard 01/09/1996 Fecal Occult Blood Test 01/09/1996 Sigmoidoscopy 01/09/1996 Zoster Vaccines (2 of 3) 07/14/2012 05/19/2012 Depression Screening 10/18/2020 10/19/2019 Colonoscopy 07/01/2022 07/01/2017, 06/08, 02/11/2013, Additional history exists Colorectal Cancer Screening 07/01/2022 Adult Wellness Visit 01/23/2023 01/23/2022 COVID-19 Vaccine ( - season) 2023 05/17/2020, 04/17/2020 GFR 04/21/2024 04/21/2023, 06/2022, 02/17/2022, Additional history exists Albumin/Creatinine Ratio 02/09/2026 023, 02/06/2022, 01/20/2020, Additional history exists Lipid Panel 02/10/2028 02/09/2023, 03/2021, 01/22/2021, Additional history exists DTap/Tdap Vaccines (3 - Td or Tdap) 07/28/2028 07/28/2018, 11/01/2007 AAA Screening Completed 2017 RETIRED - COLONOSCOPY-EVERY 5 YRS AGES 18-100 Discontinued 07/01/2017, 07/01/2017, 02/11/2013, Additional history exists Pneumococcal Vaccine: 65+ Years Completed 01/07/2018, 12/30/2016 Influenza Vaccine (FLU shot) Completed 11/27/2023, 11/27/2023, 11/25/2022, Additional history exists HPV (Gardasil) Vaccine Aged Out No lo nger eligible based on patient's age to complete this topic Hepatitis B Vaccine Aged Out No longe r eligible based on patient's age to complete this topic MENINGOCOCCAL (MENACTRA/MENVEO) Aged Out No longer eligible based on patient's age to complete this topic documented as of this encounter Medical Devices Not on filedocumented as of this encounter Care Teams Legal Recovery Specialist Relationship Specialty Start Date End Date Rashawn Obrien MD [address] [facility] [place] [address] PCP - General 05/26/07 documented as of this encounter
--- OUTSIDE RECORDS SUMMARY | 2024-02-11 03:29 | External Medical Summary | Summary of Care ---
Author Name Unknown Organization [facility] Address [address] [facility] [address] Phone [phone] Care Team Providers Care Body Shop Floorperson Name Role Phone Rashawn Obrien MD Primary Care Provider [phone] Encounter Details Date Type Department Care Team (Late st Contact Info) Description 12/28/2023 Telephone Cardiology, [facility] 132 [facility] [place] [address] [facility] 21 [facility] [place] [address] Allergies No known active [...] encounter Miscellaneous Notes * Telephone Encounter - Rhoda Alexander, [facility] - 01/04/2024 10:00 AM EDT Will review with patient at upcoming appointment. Thanks! Rhoda Alexander PharmD, [facility] Clinical Pharmacist Medication Therapy Disease Management 01/04/2024, 10:00 AM * Telephone Encounter - Bambi Oneill RP - 01/04/2024 9:43 AM EDT Returned call to patient, he is approved for [facility]ACE Spoke with , they are agreeable to change Warfarin to Eliquis Explained INR must be <2 Pt has INR finger stick appt on 01/21. I have instructed pt to hold Warfarin on 01/19 and 01/20. On 01/21 if INR <2, will have Cristela [facility] send in Rx for Eliquis 5 mg BID to pharmacy [facility]ambi Spangler Clinical [facility] 01/04/2024,9:48 AM * Telephone Encounter - Carmen Diamond RPh - 01/01/2024 4:06 PM EDT Spoke with . Did call [place] and sign up Thursday 12/28, has not heard back. Recommended reaching out to [place] if no contact by Thursday. AZM will follow up Thursday. If approved, plan to transition Warfarin to Eliquis Carmen Diamond PharmD Clinical Pharmacist - Flower Picker [facility] 01/01/2024 4:07 PM * Telephone Encounter - Bambi Oneill RPh - 12/28/2023 11:20 AM EDT Contacts Contact Date/Time Type Contact Phone/Fax 12/28/2023 11:20 AM EDT Phone (Outgoing) Alexis Garcia (Self) [phone] (M) Spoke to Patient Spoke with . Has not yet signed up for PACE, plans to do this today or tomorrow Estimated household income at $39,000 [facility] will follow up Thursday. If approved, plan to transition Warfarin to Eliqubrii Fraser D Clinical [facility] Pharmacist Cardiology 12/28/2023,11:20 AM * Telephone Encounter - Bambi Oneill RPh - 12/28/2023 11:20 AM EDT ----- Message from Idalmis Mccrary sent at 12/25/2023 1:57 PM EDT ----- Regarding: ZHANG Saw this patient in the clinic today and asked him in his to reach out to PACE to see if thereeligible. I would like to try to transition him to [facility] if it isn't affordable option. If they are not able to qualify for pace can we see if he qualifies for 1 of the PAP programs through apixaban or Xarelto Thank You SHADY Shanks documented in this encounter Plan of Treatment Upcoming Encounters Date Type Department Care Team (Late st Contact Info) Description 01/22/2024 8:10 AM EST Anticoagulation Pharmacy, [place] [address] [facility] [place] [address] [place], [facility] [address] [place] [address] 05/06/2024 8:20 AM EST Office Visit Family Practice, [place] [address] [place] [phone] Rashawn Obrien MD [address] [facility] [place] [address] 06/17/2024 7:15 AM EDT Cardiac Studies Cardiac Studies, [facility] [address] [facility] [place] [address] 07/05/2024 8:00 AM EDT Office Visit Cardiology, [facility] 132 [facility] [place] [address] Idalmis Mccrary CRNP [address] [place] [address] Scheduled Procedures Name Priority Associated Diagnoses Date/Ti [...] Wellness Visit 01/23/2023 01/23/2022 COVID-19 Vaccine ( season) 2023 05/17/2020, 04/17/2020 GFR 04/21/2024 04/21/2023, 06/2022, 02/17/2022, Additional history exists Albumin/Creatinine Ratio 02/09/2026 023, 02/06/2022, 01/20/2020, Additional history exists Lipid Panel 02/10/2028 02/09/2023, 1203/2021, 01/22/2021, Additional history exists DTap/Tdap Vaccines (3 [...] Not on filedocumented as of this encounter Visit Diagnoses Diagnosis Paroxysmal atrial fibrillation (HCC)- Primary Atrial fibrillation documented in this encounter Care Teams Body Shop Floorperson Relationship Specialty Start Date End Date Rashawn Obrien MD [address] [place] [address] PCP - General 05/26/07 documented as of this encounter
--- OUTSIDE RECORDS SUMMARY | 2024-02-11 03:29 | External Medical Summary | Summary of Care ---
Author Name Unknown Organization [facility] Address [address] [facility] [address] Phone [phone] Care Team Providers Care Campus Monitor Name Role Phone Rashawn Obrien MD Primary Care Provider [phone] Encounter Details Date Type Department Care Team (Late st Contact Info) Description 12/28/2023 Telephone Cardiology, [facility] 132 [facility] [place] [address] [facility] 21 [facility] [place] [address] Allergies No known active allergiesdocumented as of this encounter (statuses as of 01/01/2024) Medications Medication Sig Dispensed Refills Start Date [...] as of this encounter (statuses as of 01/01/2024) Active Problems Problem Noted Date Diagnosed Date [...] as of this encounter (statuses as of 01/01/2024) Resolved Problems Problem Noted Date Diagnosed Date [...] as of this encounter (statuses as of 01/01/2024) Immunizations Name Administration Dates Next Due COVID-19 [...] encounter Miscellaneous Notes * Telephone Encounter - Carmen Diamond RPh - 01/01/2024 4:06 PM EDT Spoke with . Did call [place] and sign up Thursday 12/28, has not heard back. Recommended reaching out to [facility] if no contact by Thursday. MTM will follow up Thursday. If approved, plan to transition Warfarin to Sammy Diamond PharmD Clinical Pharmacist - Personalized Living Manager Nurse Medication Therapy Management Clinic 01/01/2024 4:07 PM * Telephone Encounter - Bambi Oneill RPh - 12/28/2023 11:20 AM EDT Contacts Contact Date/Time Type Contact Phone/Fax 12/28/2023 11:20 AM EDT Phone (Outgoing) Alexis Garcia (Self) [phone] (M) Spoke to Patient Spoke with . Has not yet signed up for AARON, plans to do this today or tomorrow Estimated household income at $39,000 MTM will follow up Thursday. If approved, plan to transition Warfarin to Sammy Spangler Clinical [facility] Pharmac[facility] Cardiology 12/28/2023,11:20 AM * Telephone Encounter - Bambi Oneill RPh - 12/28/2023 11:20 AM EDT ----- Message from Idalmis Mccrary sent at 12/25/2023 1:57 PM EDT ----- Regarding: ZHANG Saw this patient in the clinic today and asked him in his to reach out to AARON to see if thereeligible. I would like [...] Description 01/22/2024 8:10 AM EST Antico[facility] Pharmacy, [place] [address] [facility] [address] [facility] [address] [facility] [address] 05/06/2024 8:20 AM EST Office Visit Family Practice, [place] [address] [facility], [place] [phone] Rashawn Obrien MD [address] [facility] [address] 06/17/2024 7:15 AM EDT Cardiac Studies Cardiac Studies, [facility] [address] [facility] [place] [address] 07/05/2024 8:00 AM EDT Office Visit Cardiology, [facility] [address] [facility] [place] [address] Idalmis Mccrary CRNP [address] [facility] [place] [address] Scheduled Procedures Name Priority Associated Diagnoses Date/Ti [...] filedocumented as of this encounter Care Teams Campus Monitor Relationship Specialty Start Date End Date Rashawn Obrien MD [address] [place] [address] PCP - General 05/26/07 documented as of this encounter
--- OUTSIDE RECORDS SUMMARY | 2024-02-11 03:29 | External Medical Summary | Summary of Care ---
Author Name Unknown Organization [facility] Address [address] [facility] [place] [address] Phone [phone] Care Team Providers Care Skiagrapher Name Role Phone Rashawn Obrien MD Primary Care Provider Reason for Referral * Precert (Diagnostic Medical) (Within 10 days (routine)) - Authorized Specialty Diagnoses / Procedures Referred By Contac t Referred To Contact Cardiac Studies Diagnoses Typical atrial flutter (HCC) Aortic valve stenosis, etiology of cardiac valve disease unspecified Procedures ECHO, COMPLETE (2D), TRANS-THORACIC Idalmis Mccrary CRNP [address] [place] [address] Referral ID Status Reason Start Date Expiration Date V isits Requested Visits Authorized [id number] Authorized Precert 06/24/2024 1 1 Reason for Visit * Reason Comments Follow Up Encounter Details Date Type Department Care Team (Late st Contact Info) Description 12/25/2023 12:00 PM EDT Office Visit Cardiology, [facility] [address] [facility] [place] [address] Idalmis Mccrary [facility] [address] [facility] [place] [address] Persistent atrial fibrillation (HCC)*; Aortic valve stenosis, etiology of cardiac valve disease unspecified; Typical atrial flutter (HCC); HTN, goal below 130/80; Hyperlipidemia, unspecified hyperlipidemia type; Hypertrophic cardiomyopathy (HCC) Allergies No known active allergiesdocumented as of this encounter (statuses as of 01/02/2024) Medications Medication Sig Dispensed Refills Start Date [...] as of this encounter (statuses as of 01/02/2024) Active Problems Problem Noted Date Diagnosed Date [...] as of this encounter (statuses as of 01/02/2024) Resolved Problems Problem Noted Date Diagnosed Date [...] as of this encounter (statuses as of 01/02/2024) Immunizations Name Administration Dates Next Due COVID-19 [...] on file documented as of this encounter Last Filed Vital Signs Vital Sign Reading Time Taken Comments Blood Pressure 138/82 12/25/2023 12:17 PM EDT Pulse 60 12/25/2023 12:17 PM EDT Temperature - - Respiratory Rate 16 12/25/2023 12:17 PM EDT Oxygen Saturation - - Inhaled Oxygen Concentration - - Weight 100.7 kg (222 lb) 12/25/2023 12:17 PM EDT Height - - Body Mass Index 33.75 08/04/2023 8:41 AM EDT documented in this encounter Patient Instructions * Patient Instructions* Idalmis Mccrary CRNP - 12/25/2023 12:51 PM EDT PACE/PACENET Prescription Assistance Program (Program of All-Inclusive Care for the Elderly) [facility] prescription assistance programs for older adults offer low-cost prescription medication to qualified residents, age 65 and older. This is a free program. There is no cost to apply. Call to apply. If you do not qualify, please reach out to our office so we can investigate other options for you. PACE Income Limits: Single: $33,500 : $41,500 Let us know how you make out, Can consider switching you to another medication other than warfarin documented in this encounter Progress Notes * Henny Ku DO - 01/02/2024 7:58 AM EDT I have reviewed the advanced practitioner's documentation on the date of service referenced in note, and I agree with, and take responsibility for the plan of care. Pt seen in routine 6 month EP f/u due to atrial flutter s/p CTI ablation He recently had an echo and was found to be back in AF-not symptomatic He reports his usual SOB and dizziness No change in cardaic medications but did provide information about PACE to see if he can be switched to a NOAC Repeat echo to monitor the as the velocity and gradients are slightly higher on most recent echo EP f/u 6 months Henny Ku DO Department of Cardiology [facility] Cardiology [place], [place] [id number] * Idalmis Mccrary CRNP - 12/25/2023 12:19 PM EDT Subjective Alexis Garcia is a 73 year old male. Chief Complaint Patient presents with Follow Up Routine EP follow Up Referring Provider: Dr. De León Cardiac Problems: Atrial flutter on metoprolol and coumadin [id number] (age, HTN). S/p CTI 05/06/23 at [facility] HTN HLD HCM -moderate HPI: 73-year-old male presents today for routine EP follow-up accompanied by his . He was last seen in the clinic approximately 6 months ago. Has been feeling well from a cardiac perspective with no acute complaints today. He did recently have an echocardiogram completed a few weeks ago and during the study was noted to have atrial flutter. SOB on exertion, unchanged from baseline. Dizziness if he moves too quickly. Denies chest pain, SOB, palpitations, dizziness, syncope, edema, orthopnea and PND. No change in activity tolerance. Reports compliance with medications without any untoward side effects, or difficulty with affordability. 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 Multiple Vitamins-Minerals (CENTRUM) Tablet Take 1 Tab by mouth daily. Sildenafil Citrate 100 MG Oral Tablet Take 1 Tablet by mouth daily as needed for Erectile Dysfunction. 10 Tablet 5 prednisoLONE Acetate 1 % Ophthalmic Suspension (Pred Forte) Instill 1 Drop into both eyes daily. (Patient taking differently: Instill 1 Drop into both eyes in the morning. Daily right eye.) 10 mL 4 Atorvastatin Calcium 40 MG Oral Tablet (Lipitor) Take 1 Tablet by mouth in the morning. 90 Tablet 3 Allopurinol 300 MG Oral Tablet (Zyloprim) TAKE 1 TABLET BY MOUTH ONCE DAILY 90 Tablet 2 Sildenafil Citrate 100 MG Oral Tablet (Viagra) Take 1 Tablet by mouth daily as needed for Erectile Dysfunction. 1-4 hours before intercourse, no more than 1 dose in 24 hours. 10 Tablet 5 Warfarin Sodium 5 MG Oral Tablet (Jantoven) take 1/2 tablet by mouth on mondays and fridays and take 1 tablet all other days or as directed by the anticoagulation clinic for a INR goal of 2-3 90 Tablet 3 hydroCHLOROthiazide 25 MG Oral Tablet (Hydrodiuril) Take 1 Tablet by mouth in the morning. 90 Tablet 1 Losartan Potassium 100 MG Oral Tablet (Cozaar) Take 1 Tablet by mouth in the morning. In the morning.. 90 Tablet 1 Metoprolol Succinate ER 100 MG Oral Tablet Extended Release 24 Hour (toPROL XL) Take 1 Tablet by mouth in the morning. 90 Tablet 3 Zoster Vac Recomb Adjuvanted 50 MCG/0.5ML Intramuscular Suspension Reconstituted (SHINGRIX) Inject 0.5 mL into a large muscle now and repeat dose in 60 to 180 days 1 Each 1 No current facility-administered medications for this visit. Past Medical History: Diagnosis Date Benign neoplasm of colon 03/06/2008 adenomatous/repeat colonoscopy in 5 yrs Deviated nasal septum 01/22/2009 Dyslipidemia, goal LDL below 100 10/01/2010 Gout 05/27/2007 Hypertrophic obstructive cardiomyopathy(425.11) 09/19/2011 HYPERTROPHIC OBSTRUCTIVE CARDIOMYOPATHY(aka CARDIOMYOPATHY) 09/25/2003 Left retinal detachment 01/11/2021 macula off, Morphea Other Vitamin D deficiency 01/06/2013 Past Surgical History: Procedure Laterality Date COLONOSCOPY 02/2013 repeat 5 yrs COLONOSCOPY W/ LESION REMOVAL, SNARE 03/06/2008 adenomaotus, repeat in 5 years COLONOSCOPY, DIAGNOSTIC (RECTUM) 07/01/2017 adenomatous polyps, diverticulosis, repeat 5 yrs/COLONOSCOPY FLEXIBLE PROXIMAL DIAGNOSTIC performedby Sid Lee MD at ENDOSCOPY [facility] MISCELLANEOUS ORDER left ear TM patch MISCELLANEOUS ORDER 1993 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 per Dr Lu at [facility] [place] KERATOPLASTY ENDOTHELIAL Right 12/2018 VITRECTOMY/LASER COAGULATION Left 01/13/2021 VITRECTOMY MECHANICAL PARS PLANA APPROACH WITH ENDOLASER PANRETINAL performed by Dylan Ladd DO at OR [facility] Review of patient's allergies indicates: No Known Allergies Family History Problem Relation Name Age of Onset Heart Disorder Mother [place] Cancer Father pancreas Other (Other) Other pt denies hx of skin cancer for parents Family Status Relation Status Mo heart failure Fa at age 67 pancreatic ca Other (Not Specified) Social History Socioeconomic History Marital status: Spouse name: Debbie Number of children: 2 Years of education: Not on file Highest education level: Not on file Occupational History Occupation: [place] Comment: [employer] Employer: [employer] Comment: retired [employer] Tobacco Use Smoking status: Former Current packs/day: 0.00 Types: Cigarettes Start date: 03/09/1965 Quit date: 03/09/1975 Years since quittin.8 Smokeless tobacco: Never Tobacco comments: 3-4 cigarettes Vaping Use Vaping status: Never Used Substance and Sexual Activity Alcohol use: Yes Alcohol/week: 0.0 standard drinks of alcohol Comment: 4-5 beers on Sat and Sun Drug use: No Sexual activity: Not on file Other Topics Concern Not on file Social History Narrative Not on file Social Determinants of Health Financial Resource Strain: Not on file Food Insecurity: Not on file Transportation Needs: Not on file Social Connections: Unknown (08/25/2023) Social Connections How often do you feel lonely or isolated from those around you? (Adult - for ages 18 years and over): Not on file Housing Stability: Not on file Review of Systems Constitutional: Negative for activity change, chills, fatigue, fever and unexpected weight change. HENT: Negative for postnasal drip, rhinorrhea and sinus pressure. Eyes: Negative for visual disturbance. Respiratory: Positive for shortness of breath. Cardiovascular: Negative for chest pain, palpitations and leg swelling. Gastrointestinal: Negative for blood in stool, constipation, diarrhea, nausea and vomiting. Genitourinary: Negative for dysuria and hematuria. Musculoskeletal: Negative for gait problem. Skin: Negative for rash. Neurological: Positive for dizziness. Negative for syncope and light-headedness. Objective BP 138/82 | Pulse 60 | Resp 16 | Wt 100.7 kg (222 lb) | BMI 33.75 kg/m | BSA 2.2 m Physical Exam Vitals and nursing note reviewed. Constitutional: General: He is awake. Appearance: Normal appearance. He is well-developed. HENT: Head: Normocephalic and atraumatic. Eyes: General: No scleral icterus. Extraocular Movements: Extraocular movements intact. Neck: Vascular: Normal carotid pulses. No carotid bruit or JVD. Cardiovascular: Rate and Rhythm: Normal rate and regular rhythm. Pulses: Carotid pulses are 2+ on the right side and 2+ on the left side. Radial pulses are 2+ on the right side and 2+ on the left side. Posterior tibial pulses are 2+ on the right side and 2+ on the left side. Heart sounds: S1 normal and S2 normal. Murmur heard. Pulmonary: Effort: Pulmonary effort is normal. Breath sounds: Normal breath sounds. No decreased breath sounds, wheezing, rhonchi or rales. Abdominal: General: Abdomen is protuberant. Palpations: Abdomen is soft. Musculoskeletal: Cervical back: Neck supple. Right lower leg: No edema. Left lower leg: No edema. Skin: General: Skin is warm and dry. Neurological: General: No focal deficit present. Mental Status: He is alert and oriented to person, place, and time. Psychiatric: Attention and Perception: Attention normal. Mood and Affect: Mood normal. Speech: Speech normal. Behavior: Behavior normal. Behavior is cooperative. Thought Content: Thought content normal. Cognition and Memory: Cognition normal. Judgment: Judgment normal. Results ECGS: Today A fib 63 bpm QTc 474 ms 06/02/23 NSR, PVC/PAC 66 bpm QTc 478 ms 02/19/2023: Atrial flutter 71bpm LVH with secondary repolarization abnormalities 11/08/2021: SB 57bpm 1st degree AV block LVH with secondary repolarization abnormalities 10/11/2021: Atrial flutter 68bpm LVH with secondary repolarization abnormalities 01/25/2021: Atrial flutter 65bpm LVH with secondary repolarization abnormalities 01/12/2021: Atrial flutter 63bpm LVH with secondary repolarization abnormalities 11/15/2019: SB 55bpm LVH 09/14/2019: AF 55bpm LVH 05/02/2018: SB 54bpm 1st degree AV Block LVH with secondary repolarization abnormalities 06/11/2017: SB 53bpm 1st degree AV block Echocardiogram: 12/01/23 The examination is adequate to evaluate the referral indication. Atrial flutter with controlled ventricular rate present during the echocardiogram study. The LV wall thickness is severely increased (concentric). The left ventricular wall motion is normal. The qualitative LV ejection fraction is 65-69% (normal). The left atrium is severely enlarged. The aortic valve is moderately calcified. Moderate aortic valve stenosis is present. Mild aortic valve regurgitation is present. Mild mitral regurgitation is present. Compared to the previous study dated 02/09/2023, there has been no significant interval change 02/09/2023: The rhythm is atrial flutter with controlled ventricular response. The qualitative LV ejection fraction is 65-69% (normal). The LV wall thickness is severely increased (concentric). The left atrium is severely enlarged (>48 ml/m^2,). The aortic valve has three leaflets. The aortic valve is moderately calcified. Moderate aortic valve stenosis is present. Mild aortic valve regurgitation is present. Mild mitral regurgitation is present. Compared to last available study changes are noted as follows: Atrial flutter now present. 02/10/2022: Sinus bradycardia in the 50s was present during the echocardiogram. The LV wall thickness is severely increased (concentric). The left ventricular wall motion is normal. The left atrium is severely enlarged. The left ventricular diastolic function is mildly abnormal (grade I). There is no resting left ventricular outflow tract gradient detected. The aortic valve has three leaflets. The aortic valve is moderately calcified. Moderate aortic valve stenosis is present. Trace aortic regurgitation is present. There is mild mitral annular calcification. There is focal calcification of the posterior mitral valve. Mild mitral regurgitation is present. Compared to the previous study dated 02/07/2021, sinus rhythm has replaced atrial flutter. The severity of aortic stenosis has progressed, moderate aortic valve stenosis is present. 02/07/2021: There was atrial flutter during the examination. A trivial posterior loculated pericardial effusion is present. The left ventricular cavity size is normal. The LV wall thickness is severely increased (concentric). The left ventricular wall motion is normal. The qualitative LV ejection fraction is 55-59% (normal). The left atrium is severely enlarged (>48 ml/m^2,). The aortic valve is moderately calcified. The aortic valve opening is moderately reduced. Mild to moderate aortic valve stenosis is present. There is no significant aortic regurgitation. There is mild mitral annular calcification. There is focal calcification of the posterior mitral valve leaflet Mild mitral regurgitation is present. Zio Patch: 01/25/2021: REASON FOR STUDY: 7 days CONCLUSIONS: Preliminary Findings Atrial Flutter occurred continuously (100% burden), ranging from 33-136 bpm (avg of 64 bpm). Isolated VEs were rare (<1.0%), VE Couplets were rare (<1.0%), and no VE Triplets were present. MD notification criteria for Slow Atrial Flutter Lab work reviewed Latest Reference Range & Units 04/21/23 15:39 Sodium 135 - 146 mmol/L 142 Potassium 3.5 - 5.1 mmol/L 4.3 Chloride 98 - 107 mmol/L 105 CO2 22 - 32 mmol/L 26 BUN 6 - 20 mg/dL 27 (H) Creatinine 0.6 - 1.2 mg/dL 1.0 Estimated Glomerular Filtration Rate >=60 mL/min 83 Anion Gap 7 - 15 mmol/L 11 Glucose 70 - 120 mg/dL 101 Calcium 8.4 - 10.2 mg/dL 9.8 Protein 6.0 - 8.3 g/dL 7.7 INR 0.8 - 1.2 2.2 (H) Prothrombin Time 11.6 - 15.2 seconds 24.7 (H) CBC Rpt WBC 4.00 - 10.80 K/uL 10.60 RBC 4.50 - 5.25 M/uL 5.21 HGB 14.0 - 16.8 g/dL 14.5 HCT 40.0 - 48.4 % 46.0 MCV 82.0 - 99.5 fL 88.3 MCH 27.0 - 34.0 pg 27.8 MCHC 32.0 - 36.0 g/dL 31.5 RDW 11.5 - 15.5 % 15.9 PLT 140 - 400 K/uL 214 MPV 6.6 - 11.1 fL 10.5 Albumin 3.8 - 5.0 g/dL 4.3 AST 10 - 50 U/L 26 ALT 10 - 50 U/L 32 Alkaline Phosphatase 35 - 130 U/L 74 Bilirubin, Total <=1.2 mg/dL 0.4 Impression Atrial flutter on metoprolol and coumadin [id number] 2 (age, HTN), s/p CTI ablation 05/06/23 HTN HLD HCM -moderate Vitamin D deficiency Plan: -HR and BP well controlled -ECG completed today confirms he is in atrial fibrillation -reviewed his recent echocardiogram which indicated normal ejection fraction with slightly higher measurements across his aortic valve -reviewed signs and symptoms that may indicate worsening of aortic stenosis including chest pain, shortness of breath, dizziness, acute weight gain and peripheral edema -encouraged to reach out sooner if these occur as we should repeat an echocardiogram sooner -otherwise we will plan to repeat echo in 6 months with re-evaluation in the clinic after -he is stable from a cardiac standpoint -continue to follow with [facility] clinic for warfarin management -provided with information on PACE as he may benefit from transitioning to NOAC therapy if it is affordable -if not can consider PAP program through 1 of the [facility] -continue metoprolol, HCTZ, atorvastatin, and losartan -Educated patient on caution with change in positions to minimize symptomatic orthostatic hypotension -Discussed importance of diet & exercise with the patient. -Discussed with patient subtle changes in how they are feeling or completing daily activities to contact us sooner; don't wait days or weeks. Patient care discussed and coordinated with Dr. Ku. Please refer to Dr. Ku's notes for further recommendations. DISPOSITION: Follow up 6 months or if symptoms worsen/fail to improve. All questions were answered to the patients satisfaction. Patient advised to report to ED with any and all emergencies. The patient agrees to the above plan and will call with additional questions or concerns. SHADY Shanks Cardiology, [facility] [address] [facility] [place] [id number] This chart was completed in part utilizing [employer] Speech Voice Recognition Software. Grammatical errors, random word insertions, pronoun errors, and incomplete sentences are an occasional consequence of this system due to software limitations, ambient noise, and hardware issues. Any formal questions or concerns about the content, text, or information contained within the body of this dictation should be directly addressed to the provider for clarification. documented in this encounter Nursing Notes * Jyoti Mcmillan LPN - 12/25/2023 12:16 PM EDT Examination Room: 16 Name: Alexis Garcia Date of : 1950 Reason for Visit: Follow up Problems/Concerns: Some lightheadedness, no falls, no syncope Interim Hosp(s): denies Chest Pain/SOB: Denies CP some sob denies worsening. MyChart Discussed: ALREADY ACTIVE Patient was instructed to not get up on the exam table until directed and assisted by their provider; patient is to remain seated in the chair/ wheelchair/ exam table for fall prevention and safety reasons. Patient is aware staff will assist stepping down off exam table with personnel. documented in this encounter Plan of Treatment Upcoming Encounters Date Type Department Care Team (Late st Contact Info) Description 01/22/2024 8:10 AM EST Anticoagulation Pharmacy, [place] [address] [facility] [place] [id number] [place] [facility] [address] [place] [facility] [place] [address] 05/06/2024 8:20 AM EST Office Visit [facility] [address] [facility] [phone] Rashawn Obrien [facility] [address] [facility] [address] 06/17/2024 7:15 AM EDT Cardiac Studies Cardiac Studies, [facility] [address] [facility] [place] [address] 07/05/2024 8:00 AM EDT Office Visit Cardiology, [facility] [address] [facility] [place] [address] Idalmis Mccrary CRNP [address] [place] [id number] Scheduled Orders Name Type Priority Associated Diagnoses Orde r Schedule EKG EKG Routine Typical atrial flutter (HCC) Expected: 12/25/2023 (Approximate), Expires: 01/24/2025 ECHO, COMPLETE (2D), TRANS-THORACIC Echocardiology Routine Typical atrial flutter (HCC) Aortic valve stenosis, etiology of cardiac valve disease unspecified Expected: 06/24/2024, Expires: 01/24/2026 Scheduled Procedures Name Priority Associated Diagnoses Date/Ti [...] as of this encounter Visit Diagnoses Diagnosis Persistent atrial fibrillation (HCC)- Primary Atrial fibrillation Aortic valve stenosis, etiology of cardiac valve disease unspecified Typical atrial flutter (HCC) Atrial flutter HTN, goal below 130/80 Unspecified essential hypertension Hyperlipidemia, unspecified hyperlipidemia type Hypertrophic cardiomyopathy (HCC) Other hypertrophic cardiomyopathy documented in this encounter Care Teams Skiagrapher Relationship Specialty Start Date End Date Rashawn Obrien MD [address] [place] [address] PCP - General 05/26/07 documented as of this encounter"
--- OUTSIDE RECORDS SUMMARY | 2024-02-11 03:29 | External Medical Summary ---
Author Name Unknown Address Unknown Organization : Laboratory Report Ordering Provider Test Date Status ALEJANDRO ROTHJennifer 01/22/2024 08:10:24 Final Therapeutic ranges for non-o perative patients:
Prophylaxsis/treatment of DVT: (Range:2.0-3.0)
Treatment of pulmonary embolism:(Range:2.0-3.0)
Prevention of systemic embolism from:
-tissue heart valves
-acute myocardial infarction
-valvular heart disease
-atrial fibrillation
(Range: 2.0-3.0)
Mechanical prosthetic valves: (Range: 2.5-3.5) Observation Date Value Abnormality Reference (Units ) Status INR in Capillary blood by Coagulation assay 01/22/2024 08:10:24 1.5 (INR) Final Performing Location
--- OUTSIDE RECORDS SUMMARY | 2024-02-11 03:29 | External Medical Summary | Summary of Care ---
Author Name Unknown Organization [facility] Address [address] [facility] [place] [address] Phone [phone] Care Team Providers Care Silverer Name Role Phone Rashawn Obrien MD Primary Care Provider [phone] Reason for Visit * Reason Comments Dosage Adjustment In Person (Anticoag Cl inic) Encounter Details Date Type Department Care Team (Latest Contact Info) Description 01/22/2024 8:10 AM EST Anticoagulation Pharmacy, [place] [address] [place] [address] [facility] [address] [place] [address] Anticoagulation management encounter*; Paroxysmal atrial fibrillation (HCC) Allergies No known active allergiesdocumented as of this encounter (statuses as of 01/22/2024) Medications Ascorbic Acid (VITAMIN C) 500 MG CAPS Take by mouth. Activ e Multiple Vitamins-Mineral s (CENTRUM) Tablet Take 1 Tab by mouth daily. Active Zoster Vac Recomb Adjuvanted 50 MCG/0.5ML Intramuscular Suspension Reconstituted (SHINGRIX) Inject 0.5 mL into a large muscle now and repeat dose in 60 to 180 days 1 Each 1 020 Active Sildenafil Citrate 100 MG Oral TabletIndication s:Other male erectile dysfunction Take 1 Tablet by mouth daily as needed for Erectile Dysfunction. 10 Tablet 5 021 Active prednisoLONE Acetate 1 % Ophthalmic Suspension (Pred Forte) Instill 1 Drop into both eyes daily. 10 mL 4 022 Active Additional Information Patient taking differently:1 Drop Both eyes Daily(AM),Daily right eye, Reported on 05/15/2022 Atorvastatin Calcium 40 MG Oral Tablet (Lipitor)Indicat ions:Dyslipidemi a, goal to be determined Take 1 Tablet by mouth in the morning. 90 Tablet 3 024 Active Allopurinol 300 MG Oral Tablet (Zyloprim)Indica tions:Gouty arthropathy TAKE 1 TABLET BY MOUTH ONCE DAILY 90 Tablet 2 024 Active Sildenafil Citrate 100 MG Oral Tablet (Viagra)Indicati ons:Other male erectile dysfunction Take 1 Tablet by mouth daily as needed for Erectile Dysfunction. 1-4 hours before intercourse, no more than 1 dose in 24 hours. 10 Tablet 5 024 Active hydroCHLOROthiaz robert 25 MG Oral Tablet (Hydrodiuril)Ind ications:Essenti al hypertension with goal blood pressure less than 130/80 Take 1 Tablet by mouth in the morning. 90 Tablet 1 024 Active Losartan Potassium 100 MG Oral Tablet (Cozaar)Indicati ons:Essential hypertension with goal blood pressure less than 130/80 Take 1 Tablet by mouth in the morning. In the morning.. 90 Tablet 1 024 Active Metoprolol Succinate ER 100 MG Oral Tablet Extended Release 24 Hour (toPROL XL)Indications:H ypertrophic cardiomyopathy (HCC),Essential hypertension with goal blood pressure less than 130/80 Take 1 Tablet by mouth in the morning. 90 Tablet 3 024 Active Apixaban 5 MG Oral Tablet (Eliquis)Indicat ions:Paroxysmal atrial fibrillation (HCC),Anticoagul ation management encounter Take 1 Tablet by mouth in the morning and 1 Tablet before bedtime. Stop warfarin. 180 Tablet 4 024 Active Warfarin Sodium 5 MG Oral Tablet (Jantoven)Indica tions:Hypertroph ic cardiomyopathy (HCC),Typical atrial flutter (HCC) take 1/2 tablet by mouth on mondays and fridays and take 1 tablet all other days or as directed by the anticoagulation clinic for a INR goal of 2-3 90 Tablet 3 024 2023 Discontinued documented as of this encounter (statuses as of 01/22/2024) Active Problems Problem Noted Date Diagnosed Date [...] bilateral 01/22/2009 History of colonic polyps 03/06/2008 Overview (03/08/2008): adenomatous/repeat colonoscopy in 5 yrs Gout 05/27/2007 documented as of this encounter (statuses as of 01/22/2024) Resolved Problems Problem Noted Date Diagnosed Date Resolved Date Mild aortic stenosis 06/11/2017 023 Hypertrophic cardiomegaly 12/05/2016 Gout 12/26/2014 12/30/2016 Dysfunction of eustachian tube 01/22/2009 01/07/2018 OTITIS MEDIA,BILAT,INACTIVE 01/22/2009 01/07/2018 Dyspnea and respiratory abnormality 01/22/2009 01/07/2018 Overview (12/30/2016): ICD-10 update of inactive term Deviated nasal septum 01/22/20092017 ACUTE URI NOS 04/15/2005 04/27/2008 Overview (04/27/2008): Resolved per Benign Acute Dxs Protocol #3 ADVANCE DIRECTIVE INFORMATION 12/23/2004 01/11/2024 HYPERTROPHIC OBSTRUCTIVE CAR DIOMYOPATHY(aka CARDIOMYOPATHY) 09/25/2003 09/19/2011 Epistaxis 11/22/2002 01/07/2018 Chronic rhinitis 11/22/2002 01/07/2018 Morphea 10/29/2001 01/07/2018 documented as of this encounter (statuses as of 01/22/2024) Immunizations Name Administration Dates Next Due COVID-19 [...] Assigned at Male 07/08/2018 7:18 AM EDT Legal Sex Male 7:12 AM EST Gender Identity Male 07/08/2018 7:18 AM EDT Sexual Orientation Straight 07/08/2018 7: 18 AM EDT Occupation Industry Job Start Date Job End Date [place] Not on file Not on file Not on file Not on file Not on file Not on file Not on file documented as of this encounter Progress Notes * Rhoda Alexander RPh - 01/22/2024 8:06 AM EST Images from the original note were not included. Medication Therapy Disease Management - Anticoagulation Patient: Alexis Garcia | : 1950 Subjective Patient-Reported Symptoms: Objective Current Warfarin Dose As of 01/22/2024 Warfarin maintenance plan: 2.5 mg (5 mg x 0.5) every Tue, Sat; 5 mg (5 mg x 1) all other days INR Result As of 01/22/2024 INR goal: 2.0-3.0 INR used for dosin.5 (01/22/2024) Anticoagulation Episode Summary Resolved date: 01/22/2024 Resolved reason: Alternate Therapy Initiated Assessment & Plan Warfarin Plan As of 01/22/2024 Full warfarin instructions: STOP Warfarin Start Eliquis 5 mg BID Discharge at this time due to transition to DOAC therapy. Welcome referrals if patient agreeable infuture. Thank you for allowing us to participate in the care of this patient. Episode resolved. INR orders discontinued. Removed from [facility] clinic roster. I spent a total of 10-19 minutes (exact time 10 mins) on the date of service in preparation, delivery, and documentation of the care provided to Alexis Garcia excluding any time spent in the performance of separately billed services or time spent by another provider/QHP. Rhoda Alexander RPh Clinical Pharmacist 01/22/2024, 8:06 AM documented in this encounter Plan of Treatment Upcoming Encounters Date Type Department Care Team (Late st Contact Info) Description 05/06/2024 8:20 AM EST Office Visit [facility] [address] [facility] [place] [address] Rashawn Obrien MD [address] [facility] [place] [address] 06/17/2024 7:15 AM EDT Cardiac Studies Cardiac Studies, [facility] [address] [facility] [place] [address] 07/05/2024 8:00 AM EDT Office Visit Cardiology, [facility] [address] [facility] [place] [address] Idalmis Mccrary CRNP [address] [place] [address] Scheduled Procedures Name Priority Associated Diagnoses Date/Ti [...] Not on filedocumented as of this encounter Procedures Procedure Name Priority Date/Time Associated Diagnosis Comments INR FINGERSTICK, POINT OF CARE STAT 01/22/2024 8:10 AM EST Paroxysmal atrial fibrillation (HCC) Anticoagulation management encounter documented in this encounter Results * INR FINGERSTICK, POINT OF CARE (01/22/2024 8:10 AM EST) Fingerstick INR 1.5 INR 8:18 AM EST [facility]01 Blood 01/22/2024 8:10 AM EST 01/22/2024 8:18 AM EST [facility] - 01/22/2024 8:18 AM EST Therapeutic ranges for non-operative patients: Prophylaxsis/treatment of DVT: (Range:2.0-3.0) Treatment of pulmonary embolism:(Range:2.0-3.0) Prevention of systemic embolism from: -tissue heart valves -acute myocardial infarction -valvular heart disease -atrial fibrillation (Range: 2.0-3.0) Mechanical prosthetic valves: (Range: 2.5-3.5) Rhoda Alexander [facility] LAB POINT OF CARE TEST DOCKED DEVICE UNSOLICITED RESULTS Final Result [facility] [address] [place], [place] [id number] documented in this encounter Visit Diagnoses Diagnosis Anticoagulation management encounter- Primary Encounter for therapeutic drug monitoring Paroxysmal atrial fibrillation (HCC) Atrial fibrillation documented in this encounter Care Teams Silverer Relationship Specialty Start Date End Date Rashawn Obrien MD [address] [place] [address] PCP - General 05/26/07 documented as of this encounter"
--- OUTSIDE RECORDS SUMMARY | 2024-02-11 03:29 | External Medical Summary | Summary of Care ---
Author Name Unknown Organization [facility] Address [address] [place] [address] Phone [phone] Care Team Providers Care Regional Production Manager Name Role Phone Rashawn Obrien MD Primary Care Provider [phone] Encounter Details Date Type Department Care Team (Late st Contact Info) Description 01/04/2024 Orders Only Outcomes Research Department [address] [place] [address] Lakeshia Escalona CHRA [employer] Other*[id number] Allergies No known active allergiesdocumented as of [...] mRNA, LNP-s, No Pre serve, 2-Dose Series (Solaborate) 05/17/2020,04/17/2020 Pneumococcal Conjugate Vacc, 13 Valent (Prevnar) [...] on file documented as of this encounter Plan of Treatment Upcoming Encounters Date Type Department Care Team (Late st Contact Info) Description 01/22/2024 8:10 [facility] [address] [place] [facility] [place] [address] [facility] [address] [place] [facility] [place] [address] 05/06/2024 8:20 AM EST Office Visit [facility] [place] [address] [facility] [phone] Rashawn Obrien MD [address] [place] [facility] [place] [address] 06/17/2024 7:15 AM EDT Cardiac Studies Cardiac Studies, [facility] [address] [facility] [place] [address] 07/05/2024 8:00 AM EDT Office Visit Cardiology, [facility] [address] [facility] [place] [address] Idalmis Mccrary CRNP [address] [place] [address] [place] [address] Scheduled Orders Name Type Priority Associated Diagnoses Orde r Schedule MYCODE SUBSEQUENT ADULT Lab Routine [employer] Other*[id number] Every 6 Months for 2 Occurrences starting 01/04/2024 until 01/23/2025 Scheduled Procedures Name Priority Associated Diagnoses Date/Ti [...] as of this encounter Visit Diagnoses Diagnosis [employer] Other*[id number] documented in this encounter Care Teams Regional Production Manager Relationship Specialty Start Date End Date Rashawn Obrien MD [address] [place] [address] PCP - General 05/26/07 documented as of this encounter
--- OUTSIDE RECORDS SUMMARY | 2024-02-11 03:29 | External Medical Summary | Summary of Care ---
Author Name Unknown Organization [facility] Address [address] [facility] [address] Phone [phone] Care Team Providers Care Network Strategist Name Role Phone Rashawn Obrien MD Primary Care Provider [phone] Encounter Details Date Type Department Care Team (Late st Contact Info) Description 12/28/2023 Telephone Cardiology, [facility] [address] [facility] [place] [address] [facility] [address] [facility] [place] [address] Allergies No known active allergiesdocumented as of this encounter (statuses as of 12/28/2023) Medications Medication Sig Dispensed Refills Start Date [...] as of this encounter (statuses as of 12/28/2023) Active Problems Problem Noted Date Diagnosed Date [...] as of this encounter (statuses as of 12/28/2023) Resolved Problems Problem Noted Date Diagnosed Date [...] as of this encounter (statuses as of 12/28/2023) Immunizations Name Administration Dates Next Due COVID-19 [...] Miscellaneous Notes * Telephone Encounter - Bambi Ng, [facility] - 12/28/2023 11:20 AM EDT Contacts Contact Date/Time Type Contact Phone/Fax 12/28/2023 11:20 AM EDT Phone (Outgoing) Alexis Garcia (Self) [phone] (M) Spoke to Patient Spoke with . Has not yet signed up for PACE, plans to do this today or tomorrow Estimated household income at $39,000 MT will follow up Thursday. If approved, plan to transition Warfarin to Eliquis Bambi Ng Pharm D Clinical [facility] Pharmacist Cardiology 12/28/2023,11:20 AM * Telephone Encounter - Bambi Ng RPh - 12/28/2023 11:20 AM EDT ----- [...] Description 01/22/2024 8:10 AM EST [facility], [place] [address] [facility] [address] [place], [facility] [address] [facility] [place] [address] 05/06/2024 8:20 AM EST Office Visit [facility] [address] [place] [phone] Rashawn Obrien MD [address] [place] [address] 06/17/2024 7:15 AM EDT Cardiac Studies Cardiac Studies, [facility] [address] [place] [address] 07/05/2024 8:00 AM EDT Office Visit Cardiology, [facility] [address] [place] [address] Idalmis Mccrary CRNP [address] [facility] [place] [address] Scheduled Procedures Name Priority Associated Diagnoses Date/Ti [...] 12/30/2016 Influenza Vaccine (FLU shot) Completed 11/27/2023, 11/25/2022, 12/17/2021, Additional history exists HPV (Gardasil) Vaccine Aged [...] filedocumented as of this encounter Care Teams Network Strategist Relationship Specialty Start Date End Date Rashawn Obrien MD [address] [place] [address] PCP - General 05/26/07 documented as of this encounter
--- OUTSIDE RECORDS SUMMARY | 2024-02-11 03:30 | External Medical Summary | Summary of Care ---
Author Name Unknown Organization [facility] Address [address] [place] [address] Phone [phone] Care Team Providers Care Hide And Skin Classer Name Role Phone Rashawn Obrien MD Primary Care Provider [phone] Reason for Visit * Reason Comments Dosage Adjustment In Person (Anticoag Cl inic) Encounter Details Date Type Department Care Team (Latest Contact Info) Description 12/18/2023 7:30 AM EDT Anticoagulation Pharmacy, [place] [address] [place] [address] [facility] [address] [place] [address] Anticoagulation management encounter*; Paroxysmal atrial fibrillation (HCC) Allergies No known active allergiesdocumented as of this encounter (statuses as of 12/18/2023) Medications Medication Sig Dispensed Refills Start Date [...] as of this encounter (statuses as of 12/18/2023) Active Problems Problem Noted Date Diagnosed Date [...] as of this encounter (statuses as of 12/18/2023) Resolved Problems Problem Noted Date Diagnosed Date [...] as of this encounter (statuses as of 12/18/2023) Immunizations Name Administration Dates Next Due COVID-19 [...] Progress Notes * Rhoda Alexander RPh - 12/18/2023 7:23 AM EDT Images from the original note were not included. Medication Therapy Disease Management - Anticoagulation Patient: Alexis Garcia | : 1950 Subjective Contacts Contact Date/Time Type Contact Phone/Fax 12/11/2023 05:11 AM EDT Vendor (Outgoing) Alexis Garcia [phone] 12/15/2023 05:13 AM EDT Vendor (Outgoing) Alexis Garcia [phone] 12/17/2023 05:13 AM EDT Vendor (Outgoing) Alexis Garcia [phone] Patient-Reported Symptoms: Patient Findings Negatives: Signs/symptoms of thrombosis, Signs/symptoms of bleeding, Change in health, Change in alcohol use, Change in activity, Upcoming invasive procedure, Missed doses, Extra doses, Change in medications, Change in diet/appetite, Bruising Objective Current Warfarin Dose As of 12/18/2023 Warfarin maintenance plan: 2.5 mg (5 mg x 0.5) every Tue, Sat; 5 mg (5 mg x 1) all other days INR Result As of 12/18/2023 INR goal: 2.0-3.0 INR used for dosin.1 (12/18/2023) Assessment & Plan Warfarin Plan As of 12/18/2023 Full warfarin instructions: 12/17: 2.5 mg; Otherwise 2.5 mg every Tue, Sat; 5 mg all other days Next INR check: 01/22/2024 Repeat PT/INR in 5 week(s) Weekly dose: not changed Additional Dosing Information: Description Takes in am I spent a total of 10-19 minutes (exact time 10 mins) on the date of service in preparation, delivery, and documentation of the care provided to Alexis Garcia excluding any time spent in the performance of separately billed services or time spent by another provider/QHP. Rhoda Alexander RPh Clinical Pharmacist 12/18/2023, 7:28 AM documented in this encounter Plan of Treatment Upcoming Encounters Date Type Department Care Team (Late st Contact Info) Description 01/22/2024 8:10 AM EST [facility], [place] [address] [facility] [address] [facility] [address] [facility] [place] [address] 05/06/2024 8:20 AM EST Office Visit Family Practice, [place] [address] [facility] [place] [phone] Rashawn Obrien MD [address] [facility] [place] [phone] Scheduled Procedures Name Priority Associated Diagnoses Date/Ti [...] Comments INR FINGERSTICK, POINT OF CARE STAT 12/18/2023 7:26 AM EDT Paroxysmal atrial fibrillation (HCC) Anticoagulation management encounter documented in this encounter Results * INR FINGERSTICK, POINT OF CARE (12/18/2023 7:26 AM EDT) Fingerstick INR 3.1 INR 7:28 AM EDT [facility] 12/18/2023 7:26 AM EDT 12/18/2023 7:28 AM EDT Narrative [facility] [facility]- - 12/18/2023 7:28 AM EDT Therapeutic ranges for non-operative patients: Prophylaxsis/treatment of DVT: (Range:2.0-3.0) Treatment of pulmonary embolism:(Range:2.0-3.0) Prevention of systemic embolism from: -tissue heart valves -acute myocardial infarction -valvular heart disease -atrial fibrillation (Range: 2.0-3.0) Mechanical prosthetic valves: (Range: 2.5-3.5) Rhoda Alexander [facility] LAB POINT OF CARE TEST DOCKED DEVICE UNSOLICITED RESULTS [facility] [address] [place] [address] documented in this encounter Visit Diagnoses Diagnosis Anticoagulation management encounter- Primary Encounter for therapeutic drug monitoring Paroxysmal atrial fibrillation (HCC) Atrial fibrillation documented in this encounter Care Teams Hide And Skin Classer Relationship Specialty Start Date End Date Rashawn Obrien MD [address] [place] [address] PCP - General 05/26/07 documented as of this encounter"
--- OUTSIDE RECORDS SUMMARY | 2024-02-11 03:30 | External Medical Summary | Summary of Care ---
Author Name Unknown Organization [facility] Address [address] [place] [address] Phone [phone] Care Team Providers Care Automobile Drivers Name Role Phone Rashawn Obrien MD Primary Care Provider Reason for Visit * Reason Onset Date Comments Medication Administration 11/27/2023 Flu an d/or Pneumo Inj Encounter Details Date Type Department Care Team (Late st Contact Info) Description 11/27/2023 8:40 AM EDT Immunization Ancillary Department, [address] [address] [facility] [address] [place] [address] Need for prophylactic vaccination and inoculation against influenza* Allergies No known active allergiesdocumented as of this encounter (statuses as of 11/27/2023) Medications Medication Sig Dispensed Refills Start Date [...] eyes Daily(AM),Daily right eye, Reported on 05/15/2022 Metoprolol Succinate ER 100 MG Oral Tablet Extended Release 24 Hour (toPROL XL)Indications:Hype rtrophic cardiomyopathy (HCC),Essential hypertension with goal blood pressure less than 130/80 TAKE ONE TABLET BY MOUTH IN THE MORNING 90 Tablet 3 12/22/2022 Active hydroCHLOROthiazide 25 MG Oral Tablet (Hydrodiuril)Indica tions:Essential hypertension with goal blood pressure less than 130/80 Take 1 Tablet by mouth in the morning. 90 Tablet 3 01/26/2023 Active Atorvastatin Calcium 40 MG Oral Tablet (Lipitor)Indication s:Dyslipidemia, goal to be determined Take 1 Tablet by mouth in the morning. 90 Tablet 3 04/29/2023 Active Allopurinol 300 MG Oral Tablet (Zyloprim)Indicatio ns:Gouty arthropathy TAKE 1 TABLET BY MOUTH ONCE DAILY 90 Tablet 2 06/30/2023 Active Losartan Potassium 100 MG Oral Tablet (Cozaar)Indications :Essential hypertension with goal blood pressure less than 130/80 TAKE ONE TABLET BY MOUTH IN THE MORNING 90 Tablet 1 07/06/2023 Active Sildenafil Citrate 100 MG Oral Tablet [...] of 2-3 90 Tablet 3 08/20/2023 Active documented as of this encounter (statuses as of 11/27/2023) Active Problems Problem Noted Date Diagnosed Date [...] as of this encounter (statuses as of 11/27/2023) Resolved Problems Problem Noted Date Diagnosed Date [...] as of this encounter (statuses as of 11/27/2023) Immunizations Name Administration Dates Next Due COVID-19 mRNA, LNP-s, No Pre serve, 2-Dose Series (Prosetta) 05/17/2020,04/17/2020 Pneumococcal Conjugate Vacc, 13 Valent (Prevnar) 12/30/2016 Pneumococcal Polysaccharide PPV23 (Pneumovax) 01/07/2018 Seasonal Influenza, High Dos e, Trivalent, PF, IM (Fluzone HD) 11/27/2023,12/31/2018 Seasonal Influenza, PF, 6 M & above, IM , (FluLaval or Fluzone) 12/09/2019,12/31/2017,12/02/2016 Seasonal Influenza, Quadriva lent Hd (Fluzone Hd) 11/25/2022,12/17/2021,01/01/2021 Seasonal Influenza, Quadriva lent, No Preserve, IM 12/26/2015,12/26/2014 Seasonal Influenza, Trivalen t, (IIV3), PF, (Fluzone) 12/21/2008 Seasonal Influenza, Trivalen t, (IIV3), with Preserv, (Fluzone) 12/19/2013,12/22/2011,12/24/2009 TD, Preservative Free 07/28/2018(Deferre d: Contraindication - [...] as of this encounter Progress Notes * Sofia Garg LPN - 11/27/2023 8:03 AM EDT PRE - ADMINISTRATION DOCUMENTATION Are you experiencing any cold symptoms or fever? No Have you had Guillain-Evanston Syndrome (an illness that causes paralysis) within the last 6 weeks? No Have you had the flu shot in the past? YES Have you ever had a reaction to the flu shot? Yes Sofia Garg LPN, 11/27/2023 8:02 AM Immunization Administration Documentation Time Out Procedure Performed: Yes Patient Identified (Ask Name/Date of ): Yes Does the patient have a fever greater than 101 degrees today? No Patient allergic to latex? No VFC Stock: No Immunization(s) verified: Yes, Immunization Name: Flu, VIS Sheet(s) given: Yes Verified Side and Site: Yes Verified Shot(s) with Parent(s)/Patient: Yes documented in this encounter Plan of Treatment Upcoming Encounters Date Type Department Care Team (Late st Contact Info) Description 12/01/2023 8:15 AM EDT Cardiac Studies Cardiac Studies, [facility] [address] [facility] [place] [address] 12/18/2023 7:30 AM EDT Anticoagulation Pharmacy, [place] [address] [place] [address] [place] [facility] [address] [place] [address] 05/06/2024 8:20 AM EST Office Visit Family [facility], [place] [address] [facility] [phone] Rashawn Obrien MD [address] [facility] [address] Scheduled Procedures Name Priority Associated Diagnoses Date/Ti [...] as of this encounter Visit Diagnoses Diagnosis Need for prophylactic vaccination and inoculation against influenza- Primary documented in this encounter Care Teams Automobile Drivers Relationship Specialty Start Date End Date Rashawn Obrien MD [address] [place] [address] PCP - General 05/26/07 documented as of this encounter
--- OUTSIDE RECORDS SUMMARY | 2024-02-11 03:30 | External Medical Summary | Summary of Care ---
Author Name Unknown Organization [facility] Address [address] [place] [address] Phone [phone] Care Team Providers Care Merit System Director Name Role Phone Rashawn Obrien MD Primary Care Provider [phone] Reason for Visit * Reason Comments Dosage Adjustment In Person (Anticoag Cl inic) Encounter Details Date Type Department Care Team (Latest Contact Info) Description 11/04/2023 8:30 AM EDT Anticoagulation Pharmacy, [place] [address] [place] [address] [facility] [address] [place] [address] Anticoagulation management encounter*; Paroxysmal atrial fibrillation (HCC) Allergies No known active allergiesdocumented as of this encounter (statuses as of 11/04/2023) Medications Medication Sig Dispensed Refills Start Date [...] as of this encounter (statuses as of 11/04/2023) Active Problems Problem Noted Date Diagnosed Date [...] as of this encounter (statuses as of 11/04/2023) Resolved Problems Problem Noted Date Diagnosed Date [...] as of this encounter (statuses as of 11/04/2023) Immunizations Name Administration Dates Next Due COVID-19 mRNA, LNP-s, No Pre serve, 2-Dose Series (BPT) 05/17/2020,04/17/2020 Pneumococcal Conjugate Vacc, 13 Valent (Prevnar) 12/30/2016 Pneumococcal Polysaccharide PPV23 (Pneumovax) 01/07/2018 Seasonal Influenza, PF, 6 M & above, IM , (FluLaval or Fluzone) 12/09/2019,12/31/2017,12/02/2016 Seasonal Influenza, Quadriva lent Hd (Fluzone Hd) 11/25/2022,12/17/2021,01/01/2021 Seasonal Influenza, Quadriva lent, No Preserve, IM 12/26/2015,12/26/2014 Seasonal Influenza, Split, I IV3, No Preserve, Inj 12/21/2008 Seasonal Influenza, Split, I IV3, With Preserve, Inj 12/19/2013,12/22/2011,12/24/2009 Seasonal Influenza, Trivalen t, High Dose, No Preserve, IM 12/31/2018 TD, Preservative Free 07/28/2018(Deferre d: Contraindication - [...] of this encounter Progress Notes * Rhoda Alexander, [facility] - 11/04/2023 8:15 AM EDT Medication Therapy Disease Management - Anticoagulation Patient: Alexis Garcia | : 1950 Subjective Contacts Contact Date/Time Type Contact Phone/Fax 11/01/2023 05:12 AM EDT Vendor (Outgoing) Alexis Garcia [phone] 11/03/2023 05:15 AM EDT Vendor (Outgoing) Alexis Garcia [phone] Patient-Reported Symptoms: Patient Findings Negatives: Signs/symptoms of thrombosis, Signs/symptoms of bleeding, Change in health, Change in alcohol use, Change in activity, Upcoming invasive procedure, Missed doses, Extra doses, Change in medications, Change in diet/appetite, Bruising Objective Current Warfarin Dose As of 11/04/2023 Warfarin maintenance plan: 2.5 mg (5 mg x 0.5) every Tue, Sat; 5 mg (5 mg x 1) all other days INR Result As of 11/04/2023 INR goal: 2.0-3.0 INR used for dosin.1 (11/04/2023) Assessment & Plan Warfarin Plan As of 11/04/2023 Full warfarin instructions: 2.5 mg every Tue, Sat; 5 mg all other days No change documented: Rhoda Alexander RPh Next INR check: 11/18/2023 Repeat PT/INR in 6 week(s) Weekly dose: not changed Additional Dosing Information: Description Takes in am I spent a total of 10-19 minutes (exact time 10 mins) on the date of service in preparation, delivery, and documentation of the care provided to Alexis Garcia excluding any time spent in the performance of separately billed services or time spent by another provider/QHP. Rhoda Alexander RPh Clinical Pharmacist 11/04/2023, 8:16 AM documented in this encounter Plan of Treatment Upcoming Encounters Date Type Department Care Team (Late st Contact Info) Description 12/01/2023 8:15 AM EDT Cardiac Studies Cardiac Studies, [address] [place] [address] 12/18/2023 7:30 AM EDT Anticoagulation Pharmacy, [place] [address] [place] [facility] [place] [address] [place], [facility] [address] [place] [facility] [place] [address] 05/06/2024 8:20 AM EST Office Visit [facility], [place] [address] [facility] [phone] Rashawn Obrien MD [address] [place] [facility] [address] Scheduled Procedures Name Priority Associated Diagnoses Date/Ti me COLONOSCOPY FLEXIBLE PROXIMAL DIAGNOSTIC Recall History of colon polyps Health Maintenance Due Date Last Done Comments Cologuard 01/09/1996 Fecal Occult Blood Test 01/09/1996 Sigmoidoscopy 01/09/1996 Zoster Vaccines (2 of 3) 07/14/2012 05/19/2012 Depression Screening 10/18/2020 10/19/2019 Colonoscopy 07/01/2022 07/01/2017, 06/08, 02/11/2013, Additional history exists Colorectal Cancer Screening 07/01/2022 COVID-19 Vaccine ( - season) 2022 05/17/2020, 04/17/2020 Adult Wellness Visit 01/23/2023 01/23/2022 Influenza Vaccine (FLU shot) (#1) 2023 11/25/2022, 12/17/2021, 01/01/2021, Additional history exists GFR 04/21/2024 04/21/2023, 06/2022, 02/17/2022, Additional history exists Albumin/Creatinine Ratio 02/09/2026 023, 02/06/2022, 01/20/2020, Additional history exists Lipid Panel 02/10/2028 02/09/2023, 12/0 03/2021, 01/22/2021, Additional history exists DTap/Tdap Vaccines (3 - Td or Tdap) 07/28/2028 07/28/2018, 11/01/2007 AAA Screening Completed 2017 RETIRED - COLONOSCOPY-EVERY 5 YRS AGES 18-100 Discontinued 07/01/2017, 07/01/2017, 02/11/2013, Additional history exists Pneumococcal Vaccine: 65+ Years Completed 01/07/2018, 12/30/2016 HPV (Gardasil) Vaccine Aged Out No lo [...] Comments INR FINGERSTICK, POINT OF CARE STAT 11/04/2023 8:35 AM EDT Paroxysmal atrial fibrillation (HCC) Anticoagulation management encounter documented in this encounter Results * INR FINGERSTICK, POINT OF CARE (11/04/2023 8:35 AM EDT) Fingerstick INR 2.1 INR 8:37 AM EDT [facility] Blood 11/04/2023 8:35 AM EDT 11/04/2023 8:37 AM EDT Narrative [facility] - 11/04/2023 8:37 AM EDT Therapeutic ranges for non-operative patients: Prophylaxsis/treatment of DVT: (Range:2.0-3.0) Treatment of pulmonary embolism:(Range:2.0-3.0) Prevention of systemic embolism from: -tissue heart valves -acute myocardial infarction -valvular heart disease -atrial fibrillation (Range: 2.0-3.0) Mechanical prosthetic valves: (Range: 2.5-3.5) Rhoda Alexander [facility] POINT OF CARE TEST DOCKED DEVICE UNSOLICITED RESULTS [facility] [address] [place] [address] documented in this encounter Visit Diagnoses Diagnosis Anticoagulation management encounter- Primary Encounter for therapeutic drug monitoring Paroxysmal atrial fibrillation (HCC) Atrial fibrillation documented in this encounter Care Teams Merit System Director Relationship Specialty Start Date End Date Rashawn Obrien MD [address] [place] [facility] [place] [address] PCP - General 05/26/07 documented as of this encounter"
--- OUTSIDE RECORDS SUMMARY | 2024-02-11 03:30 | External Medical Summary ---
Author Name Unknown Address Unknown Organization : Laboratory Report Ordering Provider Test Date Status GONZALEZKENNETH 11/04/2023 08:35:40 Final Therapeutic ranges for non-o perative patients:
Prophylaxsis/treatment of DVT: (Range:2.0-3.0)
Treatment of pulmonary embolism:(Range:2.0-3.0)
Prevention of systemic embolism from:
-tissue heart valves
-acute myocardial infarction
-valvular heart disease
-atrial fibrillation
(Range: 2.0-3.0)
Mechanical prosthetic valves: (Range: 2.5-3.5) Observation Date Value Abnormality Reference (Units ) Status INR in Capillary blood by Coagulation assay 11/04/2023 08:35:40 2.1 (INR) Final Performing Location
--- OUTSIDE RECORDS SUMMARY | 2024-02-11 03:30 | External Medical Summary | Summary of Care ---
Author Name Unknown Organization [facility] Address [address] [place] [facility] [place] [address] Phone [phone] Care Team Providers Care Denture Processor Name Role Phone Rashawn Obrien MD Primary Care Provider [phone] Reason for Visit * Reason Onset Date Comments Appointment 12/04/2023 Encounter Details Date Type Department Care Team (Late st Contact Info) Description 12/04/2023 Telephone Cardiology, [facility] [address] [facility] [place] [address] Idalmis Mccrary CRNP [address] [place] [address] Appointment Allergies No known active allergiesdocumented as of this encounter (statuses as of 12/23/2023) Medications Medication Sig Dispensed Refills Start Date End Date Status Ascorbic Acid (VITAMIN C) 500 MG CAPS Take by mouth. Active Multiple Vitamins-Minerals (CENTRUM) Tablet Take 1 Tab by mouth daily. Active Zoster Vac Recomb Adjuvanted 50 MCG/0.5ML Intramuscular Suspension Reconstituted (SHINGRIX) Inject 0.5 mL into a large muscle now and repeat dose in 60 to 180 days 1 Each 1 0 Active Sildenafil Citrate 100 MG Oral TabletIndications:O ther male erectile dysfunction Take 1 Tablet by mouth daily as needed for Erectile Dysfunction. 10 Tablet 5 1 Active prednisoLONE Acetate 1 % Ophthalmic Suspension (Pred Forte) Instill 1 Drop into both eyes daily. 10 mL 4 2 Active Additional Information Patient taking differently:1 Drop Both eyes Daily(AM),Daily right eye, Reported on 05/15/2022 Atorvastatin Calcium 40 MG Oral Tablet (Lipitor)Indication s:Dyslipidemia, goal to be determined Take 1 Tablet by mouth in the morning. 90 Tablet 3 4 Active Allopurinol 300 MG Oral Tablet (Zyloprim)Indicatio ns:Gouty arthropathy TAKE 1 TABLET BY MOUTH ONCE DAILY 90 Tablet 2 4 Active Sildenafil Citrate 100 MG Oral Tablet (Viagra)Indications :Other male erectile dysfunction Take 1 Tablet by mouth daily as needed for Erectile Dysfunction. 1-4 hours before intercourse, no more than 1 dose in 24 hours. 10 Tablet 5 4 Active Warfarin Sodium 5 MG Oral Tablet (Jantoven)Indicatio ns:Hypertrophic cardiomyopathy (HCC),Typical atrial flutter (HCC) take 1/2 tablet by mouth on mondays and fridays and take 1 tablet all other days or as directed by the anticoagulation clinic for a INR goal of 2-3 90 Tablet 3 4 Active Metoprolol Succinate ER 100 MG Oral Tablet Extended Release 24 Hour (toPROL XL)Indications:Hype rtrophic cardiomyopathy (HCC),Essential hypertension with goal blood pressure less than 130/80 TAKE ONE TABLET BY MOUTH IN THE MORNING 90 Tablet 3 3 12/10/19 24 Discontinu ed(Refill) hydroCHLOROthiazide 25 MG Oral Tablet (Hydrodiuril)Indica tions:Essential hypertension with goal blood pressure less than 130/80 Take 1 Tablet by mouth in the morning. 90 Tablet 3 3 12/10/19 24 Discontinu ed(Refill) Losartan Potassium 100 MG Oral Tablet (Cozaar)Indications :Essential hypertension with goal blood pressure less than 130/80 TAKE ONE TABLET BY MOUTH IN THE MORNING 90 Tablet 1 4 12/10/19 24 Discontinu ed(Refill) documented as of this encounter (statuses as of 12/23/2023) Active Problems Problem Noted Date Diagnosed Date [...] as of this encounter (statuses as of 12/23/2023) Resolved Problems Problem Noted Date Diagnosed Date [...] as of this encounter (statuses as of 12/23/2023) Immunizations Name Administration Dates Next Due COVID-19 mRNA, LNP-s, No Pre serve, 2-Dose Series ([employer]) 05/17/2020,04/17/2020 Pneumococcal Conjugate Vacc, 13 Valent (Prevnar) [...] encounter Miscellaneous Notes * Telephone Encounter - Ham Leija OSA - 12/23/2023 9:09 AM EDT Patient called back, spoke with , accepted the appt for this Thursday with Idalmis. Thank you. * Telephone Encounter - Ham Leija OSA - 12/23/2023 8:27 AM EDT Patient scheduled on: RETURN EP CARDIO at 12:00 PM (30 min)Arrive by 11:45 AM Monday December 25, 2023 Appointment Provider:Idalmis Mccrary CRNP in [facility] for patient to call back * Telephone Encounter - Idalmis Mccrary CRNP - 12/16/2023 11:19 AM EDT Thank You. Can place him on my schedule for the next routing opening. If he starts to change the way he is feeling have symptoms he should reach out so we can try to move this up even sooner. Thank You SHADY Shanks * Telephone Encounter - Peg Lopez NRCMA - 12/08/2023 12:29 PM EDT Pt does not have any symptoms and reports feeling fine. (Denies lightheaded/dizziness, SOB, fatigue, palpitations, fluttering, etc) Pt is agreeable for an appt but is requesting a Thursday or Thursday. MIKE Miguel * Telephone Encounter - Idalmis Mccrary CRNP - 12/04/2023 1:38 PM EDT Appears on his recent echocardiogram there was evidence of atrial flutter as the underlying rhythm. Please reach out to the patient to see how he was feeling. Also appears that he is due for Cardiology follow-up, recommend scheduling EP visit for additional evaluation. Can gauge timing of appointment based on current symptoms. Thank You SHADY Shanks documented in this encounter Plan of Treatment Upcoming Encounters Date Type Department Care Team (Late st Contact Info) Description 12/25/2023 12:00 PM EDT Office Visit Cardiology, [facility] [address] [facility] [place] [address] Idalmis Mccrary CRNP [address] [place] [address] 01/22/2024 8:10 AM EST Anticoagulation Pharmacy, [place] [address] [place] [address] [facility] [address] [place] [address] 05/06/2024 8:20 AM EST Office Visit [facility] [address] [place] [facility] [place] [phone] Rashawn Obrien MD [address] [place] [address] Scheduled Procedures Name Priority Associated Diagnoses Date/Ti [...] Additional history exists Lipid Panel 02/10/2028 02/09/2023, 0 03/2021, 01/22/2021, Additional history exists DTap/Tdap Vaccines [...] filedocumented as of this encounter Care Teams Denture Processor Relationship Specialty Start Date End Date Rashawn Obrien MD [address] [place] [address] PCP - General 05/26/07 documented as of this encounter
--- OUTSIDE RECORDS SUMMARY | 2024-02-11 03:30 | External Medical Summary ---
Author Name Unknown Address Unknown Organization : Laboratory Report Ordering Provider Test Date Status KENNETH ROTH 12/18/2023 07:26:05 Final Therapeutic ranges for non-o perative patients:
Prophylaxsis/treatment of DVT: (Range:2.0-3.0)
Treatment of pulmonary embolism:(Range:2.0-3.0)
Prevention of systemic embolism from:
-tissue heart valves
-acute myocardial infarction
-valvular heart disease
-atrial fibrillation
(Range: 2.0-3.0)
Mechanical prosthetic valves: (Range: 2.5-3.5) Observation Date Value Abnormality Reference (Units ) Status INR in Capillary blood by Coagulation assay 12/18/2023 07:26:05 3.1 (INR) Final Performing Location
--- OUTSIDE RECORDS SUMMARY | 2024-02-11 03:30 | External Medical Summary | Summary of Care ---
Author Name Unknown Organization [facility] Address [address] [facility] [place] [address] Phone [phone] Care Team Providers Care Steward/Stewardess Economy Class Name Role Phone Rashawn Obrien MD Primary Care Provider [phone] Reason for Visit * Reason Onset Date Comments Medication Refill 12/10/2023 Encounter Details Date Type Department Care Team (Late st Contact Info) Description 12/10/2023 Refill Cardiology, [facility] [address] [place] [address] Danielle Herrera, [address] [place] [address] Hypertrophic cardiomyopathy (HCC); Essential hypertension with goal blood pressure less than 130/80 Allergies No known active allergiesdocumented as of this encounter (statuses as of 12/11/2023) Medications Medication Sig Dispensed Refills Start Date [...] of 2-3 90 Tablet 3 4 Active hydroCHLOROthiazide 25 MG Oral Tablet (Hydrodiuril)Indica tions:Essential hypertension with goal blood pressure less than 130/80 Take 1 Tablet by mouth in the morning. 90 Tablet 1 4 Active Losartan Potassium 100 MG Oral Tablet (Cozaar)Indications :Essential hypertension with goal blood pressure less than 130/80 Take 1 Tablet by mouth in the morning. In the morning.. 90 Tablet 1 4 Active Metoprolol Succinate ER 100 MG Oral Tablet Extended Release 24 Hour (toPROL XL)Indications:Hype rtrophic cardiomyopathy (HCC),Essential hypertension with goal blood pressure less than 130/80 Take 1 Tablet by mouth in the morning. 90 Tablet 3 4 Active Metoprolol Succinate ER 100 MG Oral Tablet Extended Release 24 Hour (toPROL XL)Indications:Hype rtrophic cardiomyopathy (HCC),Essential hypertension with goal blood pressure less than 130/80 TAKE ONE TABLET BY MOUTH IN THE MORNING 90 Tablet 3 3 12/10/19 24 Discontinu ed(Refill) documented as of this encounter (statuses as of 12/11/2023) Active Problems Problem Noted Date Diagnosed Date [...] as of this encounter (statuses as of 12/11/2023) Resolved Problems Problem Noted Date Diagnosed Date [...] as of this encounter (statuses as of 12/11/2023) Immunizations Name Administration Dates Next Due COVID-19 mRNA, LNP-s, No Pre serve, 2-Dose Series ([employer]) 05/17/2020,04/17/2020 Pneumococcal Conjugate Vacc, 13 Valent (Prevnar) [...] encounter Miscellaneous Notes * Telephone Encounter - Amna Orellana RPh - 12/11/2023 1:55 PM EDTSigned Prescriptions: Disp Refills Metoprolol Succinate ER 100 MG Oral Tablet*90 Tab*3 Sig: Take 1 Tablet by mouth in the morning.Authorizing Provider: DANIELLE HERRERA User: AMNA ORELLANA- documented in this encounter Plan of Treatment Upcoming Encounters Date Type Department Care Team (Late st Contact Info) Description 12/18/2023 7:30 AM EDT Anticoagulation [place] [address] [place] [address] [facility] [address] [place] [address] 05/06/2024 8:20 AM EST Office Visit [place] [address] [place] [address] Rashawn Obrien MD [address] [place] [address] Scheduled Procedures Name Priority Associated Diagnoses Date/Ti [...] as of this encounter Visit Diagnoses Diagnosis Hypertrophic cardiomyopathy (HCC) Other hypertrophic cardiomyopathy Essential hypertension with goal blood pressure less than 130/80 documented in this encounter Care Teams Steward/Stewardess Economy Class Relationship Specialty Start Date End Date Rashawn Obrien MD [address] [place], [place] [phone] PCP - General 05/26/07 documented as of this encounter
--- OUTSIDE RECORDS SUMMARY | 2024-02-11 03:30 | External Medical Summary | Summary of Care ---
Author Name Unknown Organization [facility] Address [address] [place] [address] Phone [phone] Care Team Providers Care Staff Midwife/Apprenticeship Director Name Role Phone Mariajose Obrien MD Primary Care Provider Reason for Visit * Reason Onset Date Comments Medication Refill 12/10/2023 Encounter Details Date Type Department Care Team (Late st Contact Info) Description 12/10/2023 Refill [facility] [address] [place] [address] Mariajose Obrien MD [address] [place] [address] Essential hypertension with goal blood pressure less [...] IN THE MORNING 90 Tablet 3 3 Active Atorvastatin Calcium 40 MG Oral Tablet [...] the morning.. 90 Tablet 1 4 Active hydroCHLOROthiazide 25 MG Oral Tablet (Hydrodiuril)Indica tions:Essential hypertension with goal blood pressure less than 130/80 Take 1 Tablet by mouth in the morning. 90 Tablet 3 3 12/10/19 24 Discontinu ed(Refill) Losartan Potassium 100 MG Oral Tablet (Cozaar)Indications :Essential hypertension with goal blood pressure less than 130/80 TAKE ONE TABLET BY MOUTH IN THE MORNING 90 Tablet 1 4 12/10/19 Discontinu ed(Refill) documented as of this encounter [...] encounter Miscellaneous Notes * Telephone Encounter - Clemente Lopez [facility] - 12/11/2023 12:23 PM EDTSigned Prescriptions: Disp Refills hydroCHLOROthiazide 25 MG Oral Tablet (Hyd*90 Tab*1 Sig: Take 1Tablet by mouth in the morning.Authorizing Provider: MARIAJOSE OBRIEN User: CLEMENTE LOPEZ Losartan Potassium 100 MG Oral Tablet (Coz*90 Tab*1 Sig: Take 1 Tablet by mouth in the morning. Inthe morning..Authorizing Provider: MARIAJOSE OBRIEN User: CLEMENTE LOPEZ documented in this encounter Plan of Treatment Upcoming Encounters Date Type Department Care Team (Late st Contact Info) Description 12/18/2023 7:30 AM EDT Anticoagulation Pharmacy, [place] [address] [place] [address] [facility] [address] [place] [address] 05/06/2024 8:20 AM EST Office Visit Family [facility], [place] [address] [place] [phone] Mariajose Obrien MD [address] [place] [address] Scheduled Procedures Name Priority Associated Diagnoses Date/Ti [...] as of this encounter Visit Diagnoses Diagnosis Essential hypertension with goal blood pressure less than 130/80 documented in this encounter Care Teams Staff Midwife/Apprenticeship Director Relationship Specialty Start Date End Date Mariajose Obrien MD [address] [facility] [place] [address] PCP - General 05/26/07 documented as of this encounter
--- OUTSIDE RECORDS SUMMARY | 2024-02-11 03:31 | External Medical Summary | Summary of Care ---
Author Name Unknown Organization [facility] Address [address] [place] [address] Phone [phone] Care Team Providers Care Pail Bailer Name Role Phone Rashawn Obrien MD Primary Care Provider [phone] Reason for Visit * Reason Comments Dosage Adjustment In Person (Anticoag Cl inic) Encounter Details Date Type Department Care Team (Latest Contact Info) Description 10/08/2023 7:30 AM EDT Anticoagulation Pharmacy, [place] [address] [place] [address] [facility] [address] [place] [address] Anticoagulation management encounter*; Paroxysmal atrial fibrillation (HCC) Allergies No known active allergiesdocumented as of this encounter (statuses as of 10/08/2023) Medications Medication Sig Dispensed Refills Start Date [...] as of this encounter (statuses as of 10/08/2023) Active Problems Problem Noted Date Diagnosed Date [...] as of this encounter (statuses as of 10/08/2023) Resolved Problems Problem Noted Date Diagnosed Date [...] as of this encounter (statuses as of 10/08/2023) Immunizations Name Administration Dates Next Due COVID-19 mRNA, LNP-s, No Pre serve, 2-Dose Series ([employer]) 05/17/2020,04/17/2020 Pneumococcal Conjugate Vacc, 13 Valent (Prevnar) [...] this encounter Progress Notes * Rhoda Alexander, [facility] - 10/08/2023 7:34 AM EDT Agree with plan as documented. I was present for the entirety of the visit. Rhoda Alexander [facility] Clinical Pharmacist 10/08/2023, 7:34 AM * Sofia Santos RPh - 10/08/2023 7:16 AM EDT Medication Therapy Disease Management - Anticoagulation Patient: Alexis Garcia | : 1950 Subjective Patient-Reported Symptoms: Patient Findings Negatives: Signs/symptoms of thrombosis, Signs/symptoms of bleeding, Change in health, Change in alcohol use, Change in activity, Upcoming invasive procedure, Missed doses, Extra doses, Change in medications, Change in diet/appetite, Bruising Objective Current Warfarin Dose As of 10/08/2023 Warfarin maintenance plan: 2.5 mg (5 mg x 0.5) every Tue, Sat; 5 mg (5 mg x 1) all other days INR Result As of 10/08/2023 INR goal: 2.0-3.0 INR used for dosin.4 (10/08/2023) Assessment & Plan Warfarin Plan As of 10/08/2023 Full warfarin instructions: 2.5 mg every Tue, Sat; 5 mg all other days Next INR check: 11/05/2023 Repeat PT/INR in 4 week(s) Weekly dose: not changed Additional Dosing Information: Description Takes in am I spent a total of 10-19 minutes (exact time 10 mins) on the date of service in preparation, delivery, and documentation of the care provided to Alexis Garcia excluding any time spent in the performance of separately billed services or time spent by another provider/QHP. Sofia Santos (Tina) PharmD, [facility] PGY1 Technical Agronomist Medication Therapy Management Clinic 10/08/2023 7:32 AM documented in this encounter Miscellaneous Notes * Addendum Note - Rhoda Alexander RPh - 10/08/2023 7:37 AM EDTAddended by: RHODA ALEXANDER on: 10/08/2023 07:37 AM Modules accepted: Level of Service documented in this encounter Plan of Treatment Upcoming Encounters Date Type Department Care Team (Late st Contact Info) Description 11/04/2023 8:30 AM EDT [facility] [place] [address] [facility] [address] [facility] [address] [place] [facility] [place] [address] 12/01/2023 8:15 AM EDT Cardiac Studies Cardiac Studies, [facility] [address] [facility] [place] [address] 05/06/2024 8:20 AM EST Office Visit [facility], [place] [address] [facility] [phone] Rashawn Obrien MD [address] [place] [facility] [place] [address] Scheduled Procedures Name Priority Associated Diagnoses Date/Ti me COLONOSCOPY FLEXIBLE PROXIMAL DIAGNOSTIC Recall History of colon polyps Health Maintenance Due Date Last Done Comments Cologuard 01/09/1996 Fecal Occult Blood Test 01/09/1996 Sigmoidoscopy 01/09/1996 Zoster Vaccines (2 of 3) 07/14/2012 05/19/2012 Depression Screening 10/18/2020 10/19/2019 Colonoscopy 07/01/2022 07/01/2017, 06/08, 02/11/2013, Additional history exists Colorectal Cancer Screening 07/01/2022 COVID-19 Vaccine ( season) 2022 05/17/2020, 04/17/2020 Influenza Vaccine (FLU shot) (#1) 2023 11/25/2022, 12/17/2021, 01/01/2021, Additional history exists GFR 04/21/2024 04/21/2023, 12/06/2022, 02/17/2022, Additional history exists Albumin/Creatinine Ratio 02/09/2026 023, 02/06/2022, 01/20/2020, Additional history exists Lipid Panel 02/10/2028 02/09/2023, 1203/2021, 01/22/2021, Additional history exists DTaP,Tdap,and Td Vaccines (3 - Td or Tdap) 07/28/2028 [...] Comments INR FINGERSTICK, POINT OF CARE STAT 10/08/2023 7:25 AM EDT Paroxysmal atrial fibrillation (HCC) Anticoagulation management encounter documented in this encounter Results * INR FINGERSTICK, POINT OF CARE (10/08/2023 7:25 AM EDT) Fingerstick INR 2.4 INR 7:30 AM EDT [facility] Blood 10/08/2023 7:25 AM EDT 10/08/2023 7:30 AM EDT Narrative [facility] - 10/08/2023 7:30 AM EDT Therapeutic ranges for non-operative patients: Prophylaxsis/treatment of DVT: (Range:2.0-3.0) Treatment of pulmonary embolism:(Range:2.0-3.0) Prevention of systemic embolism from: -tissue heart valves -acute myocardial infarction -valvular heart disease -atrial fibrillation (Range: 2.0-3.0) Mechanical prosthetic valves: (Range: 2.5-3.5) Rhoda Cary Catherine [facility] LAB POINT OF CARE TEST DOCKED DEVICE UNSOLICITED RESULTS LABORATORY [place] [address] [place] [address] documented in this encounter Visit Diagnoses Diagnosis Anticoagulation management encounter- Primary Encounter for therapeutic drug monitoring Paroxysmal atrial fibrillation (HCC) Atrial fibrillation documented in this encounter Care Teams Pail Bailer Relationship Specialty Start Date End Date Rashawn Obrien MD [address] [place] [id number] PCP - General 05/26/07 documented as of this encounter"
--- OUTSIDE RECORDS SUMMARY | 2024-02-11 03:31 | External Medical Summary ---
Author Name Unknown Address Unknown Organization : Laboratory Report Ordering Provider Test Date Status KENNETH ROTH 08/27/2023 07:27:05 Final Therapeutic ranges for non-o perative patients:
Prophylaxsis/treatment of DVT: (Range:2.0-3.0)
Treatment of pulmonary embolism:(Range:2.0-3.0)
Prevention of systemic embolism from:
-tissue heart valves
-acute myocardial infarction
-valvular heart disease
-atrial fibrillation
(Range: 2.0-3.0)
Mechanical prosthetic valves: (Range: 2.5-3.5) Observation Date Value Abnormality Reference (Units ) Status INR in Capillary blood by Coagulation assay 08/27/2023 07:27:05 2.7 (INR) Final Performing Location
--- OUTSIDE RECORDS SUMMARY | 2024-02-11 03:31 | External Medical Summary | Summary of Care ---
Author Name Unknown Organization [facility] Address [address] [place] [address] Phone [phone] Care Team Providers Care Boom Conveyor Operator Name Role Phone Rashawn Obrien MD Primary Care Provider [phone] Reason for Visit * Reason Comments Dosage Adjustment In Person (Anticoag Cl inic) Encounter Details Date Type Department Care Team (Latest Contact Info) Description 10/08/2023 7:30 AM EDT Anticoagulation Pharmacy, [place] [address] [place] [address] [facility] [address] [place] [address] Anticoagulation management encounter*; Paroxysmal atrial fibrillation (HCC) [...] mRNA, LNP-s, No Pre serve, 2-Dose Series ([employer]) 05/17/2020,04/17/2020 Pneumococcal Conjugate Vacc, 13 Valent (Prevnar) [...] this encounter Progress Notes * Rhoda Alexander, [facility] - 10/08/2023 7:34 AM EDT Agree with plan as documented. I was present for the entirety of the visit. Rhoda Alexander [facility] Clinical Pharmacist 10/08/2023, 7:34 AM * Sofia [...] by another provider/QHP. Sofia Santos (Tina) PharmD, [facility] PGY1 Inside Outside Sales Representative Medication Therapy Management Clinic 10/08/2023 7:32 AM documented in this encounter Miscellaneous Notes * Addendum Note - Rhoda Alexander RPh - 10/08/2023 7:37 AM EDTAddended by: RHODA ALEXANDER on: 10/08/2023 07:37 AM Modules accepted: Level of Service documented in this encounter Plan of Treatment Upcoming Encounters Date Type Department Care Team (Late st Contact Info) Description 11/04/2023 8:30 AM EDT [facility], [place] [address] [facility] [address] [facility] [address] [place] [facility] [place] [address] 12/01/2023 8:15 AM EDT Cardiac Studies Cardiac Studies, [facility] [address] [facility] [place] [address] 05/06/2024 8:20 AM EST Office Visit [facility], [place] [address] [facility] [phone] Rashawn Obrien MD [address] [place] [facility] [place] [address] Scheduled Procedures Name Priority Associated Diagnoses Date/Ti [...] INR 2.4 INR 7:30 AM EDT [facility] Blood 10/08/2023 7:25 AM EDT 10/08/2023 7:30 AM EDT N[facility]ative [facility] - 10/08/2023 7:30 AM EDT Therapeutic ranges for non-operative patients: Prophylaxsis/treatment of DVT: (Range:2.0-3.0) Treatment of pulmonary embolism:(Range:2.0-3.0) Prevention of systemic embolism from: -tissue heart valves -acute myocardial infarction -valvular heart disease -atrial fibrillation (Range: 2.0-3.0) Mechanical prosthetic valves: (Range: 2.5-3.5) Rhoda Cary Catherine [facility] LAB POINT OF CARE TEST DOCKED DEVICE UNSOLICITED RESULTS LABORATORY [place] [address] [place] [address] documented in this encounter Visit Diagnoses Diagnosis Anticoagulation management encounter- Primary Encounter for therapeutic drug monitoring Paroxysmal atrial fibrillation (HCC) Atrial fibrillation documented in this encounter Care Teams Boom Conveyor Operator Relationship Specialty Start Date End Date Rashawn Obrien MD [address] [place] [address] PCP - General 05/26/07 documented as of this encounter"
--- OUTSIDE RECORDS SUMMARY | 2024-02-11 03:31 | External Medical Summary | Summary of Care ---
Author Name Unknown Organization [facility] Address [address] [place] [address] Phone [phone] Care Team Providers Care Clerk Guide Name Role Phone Rashawn Obrien MD Primary Care Provider [phone] Reason for Visit * Reason Comments Dosage Adjustment In Person (Anticoag Cl inic) Encounter Details Date Type Department Care Team (Latest Contact Info) Description 08/27/2023 7:30 AM EDT Anticoagulation Pharmacy, [place] [address] [place] [address] [facility] [address] [place] [address] Anticoagulation management encounter*; Paroxysmal atrial fibrillation (HCC) Allergies No known active allergiesdocumented as of this encounter (statuses as of 08/27/2023) Medications Medication Sig Dispensed Refills Start Date [...] as of this encounter (statuses as of 08/27/2023) Active Problems Problem Noted Date Diagnosed Date [...] as of this encounter (statuses as of 08/27/2023) Resolved Problems Problem Noted Date Diagnosed Date [...] as of this encounter (statuses as of 08/27/2023) Immunizations Name Administration Dates Next Due COVID-19 mRNA, LNP-s, No Pre serve, 2-Dose Series ([employer]) 05/17/2020,04/17/2020 Pneumococcal Conjugate Vacc, 13 Valent (Prevnar) [...] Progress Notes * Rhoda Alexander, [facility] - 08/27/2023 7:24 AM EDT Medication Therapy Disease Management - Anticoagulation Patient: Alexis Garcia | : 1950 Subjective Patient-Reported Symptoms: Patient Findings Negatives: Signs/symptoms of thrombosis, Signs/symptoms of bleeding, Change in health, Change in alcohol use, Change in activity, Upcoming invasive procedure, Missed doses, Extra doses, Change in medications, Change in diet/appetite, Bruising Objective Current Warfarin Dose As of 08/27/2023 Warfarin maintenance plan: 2.5 mg (5 mg x 0.5) every Tue, Sat; 5 mg (5 mg x 1) all other days INR Result As of 08/27/2023 INR goal: 2.0-3.0 INR used for dosin.7 (08/27/2023) Assessment & Plan Warfarin Plan As of 08/27/2023 Full warfarin instructions: 2.5 mg every Tue, Sat; 5 mg all other days No change documented: Rhoda Alexander RPh Next INR check: 10/08/2023 Repeat PT/INR in 6 week(s) Weekly dose: not changed Additional Dosing Information: Description Takes in am Rhoda Alexander RPh Clinical Pharmacist 08/27/2023, 7:24 AM documented in this encounter Plan of Treatment Upcoming Encounters Date Type Department Care Team (Late st Contact Info) Description 10/08/2023 7:30 AM EDT Anticoagulation Pharmacy, [address] [place] [address] [place], [facility] [address] [facility] [place] [address] 12/01/2023 8:15 AM EDT Cardiac Studies Cardiac Studies, [address] [place] [address] 12/04/2023 8:00 AM EDT Office Visit Cardiology, [address] [place] [address] Michelle Contreras PA-C [address] [place] [address] 05/06/2024 8:20 AM EST Office Visit [facility] [address] [facility] [phone] Rashawn Obrien MD [address] [place], [place] [id number] Scheduled Procedures Name Priority Associated Diagnoses Date/Ti me COLONOSCOPY FLEXIBLE PROXIMAL DIAGNOSTIC Recall History of colon polyps Health Maintenance Due Date Last Done Comments Cologuard 01/09/1996 Fecal Occult Blood Test 01/09/1996 Sigmoidoscopy 01/09/1996 Zoster Vaccines (2 of 3) 07/14/2012 05/19/2012 Depression Screening 10/18/2020 10/19/2019 Colonoscopy 07/01/2022 07/01/2017, 06/08, 02/11/2013, Additional history exists Colorectal Cancer Screening 07/01/2022 COVID-19 Vaccine ( season) 2022 05/17/2020, 04/17/2020 GFR 04/21/2024 04/21/2023, 06/2022, 02/17/2022, Additional history exists Albumin/Creatinine Ratio 02/09/2026 023, 02/06/2022, 01/20/2020, Additional history exists Lipid Panel 02/10/2028 02/09/2023, 03/2021, 01/22/2021, Additional history exists DTaP,Tdap,and Td Vaccines (3 - Td or Tdap) 07/28/2028 07/28/2018, 11/01/2007 AAA Screening Completed 2017 RETIRED - COLONOSCOPY-EVERY 5 YRS AGES 18-100 Discontinued 07/01/2017, 07/01/2017, 02/11/2013, Additional history exists Pneumococcal Vaccine: 65+ Years Completed 01/07/2018, 12/30/2016 Influenza Vaccine (FLU shot) Completed 11/25/2022, 12/17/2021, 01/01/2021, Additional history exists GARDASIL-HPV IMMUNIZATION SERIES Aged Out No longer eligible based on patient's age to complete this topic Hepatitis B Aged Out No longer eligi ble based on patient's age to complete this topic MENINGOCOCCAL (MENACTRA/MENVEO) Aged Out No longer eligible based on patient's age to complete this topic documented as of this encounter Medical Devices Not on filedocumented as of this encounter Procedures Procedure Name Priority Date/Time Associated Diagnosis Comments INR FINGERSTICK, POINT OF CARE STAT 08/27/2023 7:27 AM EDT Paroxysmal atrial fibrillation (HCC) Anticoagulation management encounter documented in this encounter Results * INR FINGERSTICK, POINT OF CARE (08/27/2023 7:27 AM EDT) Fingerstick INR 2.7 INR 7:29 AM EDT LABORATORY [place] 56-01 Blood 08/27/2023 7:27 AM EDT 08/27/2023 7:29 AM EDT Narrative LAB[facility]ATORY [place] 56-01 - 08/27/2023 7:29 AM EDT Therapeutic ranges for non-operative patients: Prophylaxsis/treatment of DVT: (Range:2.0-3.0) Treatment of pulmonary embolism:(Range:2.0-3.0) Prevention of systemic embolism from: -tissue heart valves -acute myocardial infarction -valvular heart disease -atrial fibrillation (Range: 2.0-3.0) Mechanical prosthetic valves: (Range: 2.5-3.5) Rhoda Alexander [facility] LAB POINT OF CARE TEST DOCKED DEVICE UNSOLICITED RESULTS LAB[facility] [place] [address] [place] [address] documented in this encounter Visit Diagnoses Diagnosis Anticoagulation management encounter- Primary Encounter for therapeutic drug monitoring Paroxysmal atrial fibrillation (HCC) Atrial fibrillation documented in this encounter Care Teams Clerk Guide Relationship Specialty Start Date End Date Rashawn Obrien MD [address] [place] [address] PCP - General 05/26/07 documented as of this encounter"
--- OUTSIDE RECORDS SUMMARY | 2024-02-11 03:31 | External Medical Summary ---
Author Name Unknown Address Unknown Organization : Laboratory Report Ordering Provider Test Date Status KENNETH ROTH 10/08/2023 07:25:45 Final Therapeutic ranges for non-o perative patients:
Prophylaxsis/treatment of DVT: (Range:2.0-3.0)
Treatment of pulmonary embolism:(Range:2.0-3.0)
Prevention of systemic embolism from:
-tissue heart valves
-acute myocardial infarction
-valvular heart disease
-atrial fibrillation
(Range: 2.0-3.0)
Mechanical prosthetic valves: (Range: 2.5-3.5) Observation Date Value Abnormality Reference (Units ) Status INR in Capillary blood by Coagulation assay 10/08/2023 07:25:45 2.4 (INR) Final Performing Location
[2024-02-11 06:38] LABS: Hematocrit (blood only) 44.4 % (42.0-52.0); Hemoglobin 13.9 g/dl (14.0-18.0); Mean Corpuscular Hemoglobin 26.4 pg (25.0-34.0); Mean Corpuscular Hgb Conc 31.3 g/dL (32.0-36.0); Mean Corpuscular Volume 84.3 fL (80.0-100.0); Mean Platelet Volume 10.3 fL (9.4-12.4); Platelet Count 188 K/uL (130-400); RDW Coefficient of Variation 16.4 % (11.5-14.5); RDW Standard Deviation 49.7 fL (36.4-46.3); Red Blood Count 5.27 M/uL (4.70-6.10); White Blood Count 10.02 K/ul (4.8-10.8)
[2024-02-11 07:00] LABS: BUN Creatinine Ratio 28.1 (10-20); Calcium 9.2 mg/dl (8.6-10.3); Creatinine Clr Calc Pharmacy 83.7 ml/min; Phosphorus 3.2 mg/dl (2.5-4.9); Potassium 3.9 mmol/L (3.5-5.1)
--- NOTE | 2024-02-11 07:40 | Cardiology Progress Note ---
Date of Service February 11, 2024 Assessment & Plan (1) Chest pain: Plan 74 yo man presenting with chest pain Troponin:23.6, 25, 20.7 EKG: T wave inversions V3- V6 (old) CXR: no CHF, no major cardiomegaly LDL 81 Med Hx: PAF PVI s/p Ablation HTN Hyperlipidemia Aortic Stenosis Gout Retinal Detachment Plans: * + afib on DOAC * By exam, patient appears to have significant * ECHO - moderate to severe , LVEF 65-70% * Patient also has multiple risk factors for CAD * Suspect patient will need Coronary Angiography and evaluation of aortic valve for potential intervention; DOAC would need to be held * Continue Statin; LDL 81 * Kdur 40 meq po x 1 * Start ASA 81 mg po per day * SBP 114 mmHg, HR 87 * Continue Losartan 100 mg po per day * Continue Toprol 100 mg po per day * Please hold DOAC * Would start Heparin at the time when his next DOAC dose would be due (in PM) * Accepting Physician - Mao Parra * Accepting Facility - [facility] * Communicated to Hospital Medicine * Communicated with Family * 55 min spent addressing challenges, educating and advancing daily plan of care Yang Santos Admission and Anticipated Discharge Date Admission Date: February 09, 2024 Subjective Events Overnight: * Episode of angina * No telemetry events Subjective: * Currently chest pain free Review of Systems Review of Systems: All systems reviewed & are unremarkable except as noted in HPI & below Physical Exam Physical Exam: Physical exam as documented by Dr. Santos Obese JVP at base of neck S1S2 2/6 systolic murmur, murmur runs through S2 Suspect severe CTA B No C/C/E Warm and perfusing Results & Data Vital Signs (Past 12 Hours) Vital Signs Temp Pulse Pulse Resp BP Pulse Ox O2 Del Method 02/11/24 07:16 61 02/11/24 03:08 36.4 C L 63 18 104/51 L 93 Room Air 02/10/24 22:55 36.6 C 63 18 153/70 H 93 Room Air 02/10/24 22:13 59 L Laboratory Results CBC 02/11/24 Range/Units 06:06 WBC 10.02 (4.8-10.8) K/ul RBC 5.27 (4.70-6.10) M/uL Hgb 13.9 L (14.0-18.0) g/dl Hct 44.4 (42.0-52.0) % Plt Count 188 (130-400) K/uL Comprehensive Metabolic Panel 02/11/24 Range/Units 06:06 Sodium 139 (136-145) mmol/L Potassium 3.9 (3.5-5.1) mmol/L Chloride 105 (98-107) mmol/L Carbon Dioxide 27 (21-32) mmol/L BUN 25 H (6-23) mg/dl Creatinine 0.89 (0.6-1.4) mg/dl Glucose 98 (70-99(Fasting)) mg/dl Calcium 9.2 (8.6-10.3) mg/dl Intake and Output 02/10/24 02/11/24 02/11/24 22:59 06:59 14:59 Intake Total 450 / 750 Balance 450 / 750 Intake: Oral 450 / 750 Other: Other Intake Source sips Weight 97.568 kg Weight Measurement Method Built in [facility] Diagnostic Findings ECHOcardiogram: 02-11-2024 Technically Limited LVEF 65-70%No WMA LA -severely dilated Aortic Valve - moderately calcified Moderate to Borderline Severe Mild AI Medications Administered Current Inpatient Medications Acetaminophen (Acetaminophen 325 Mg Tab) 650 mg PO Q4H PRN PRN Reason: Pain or Fever Stop: 03/10/24 17:08 Allopurinol (Allopurinol 300 Mg Tab) 300 mg PO [facility] Stop: 03/11/24 08:59 Last Admin: 02/10/24 08:00 Dose: 300 mg Apixaban (Apixaban 5 Mg Tablet) 5 mg PO BID [facility] Stop: 03/10/24 20:59 Last Admin: 02/10/24 21:37 Dose: 5 mg Aspirin (Aspirin 81 Mg Ectab) [facility] [place] Stop: 03/12/24 08:59 Atorvastatin Calcium (Atorvastatin 40 Mg Tab) 40 mg PO QAM [facility] Stop: 03/11/24 08:59 Last Admin: 02/10/24 08:00 Dose: 40 mg Losartan Potassium (Losartan Potassium 50 Mg Tab) 100 mg PO DAILY [facility] Stop: 03/11/24 08:59 Last Admin: 02/10/24 08:00 Dose: 100 mg Metoprolol Succinate (Metoprolol Succ 50mg Ext Rel Tab) 100 [facility] [place] [facility] [place] Stop: 03/11/24 08:59 Last Admin: 02/10/24 08:03 Dose: 100 mg Multivitamins (Multivitamin Tab) 1 tab PO QAM [facility] Stop: 03/11/24 08:59 Last Admin: 02/10/24 08:04 Dose: 1 tab Ondansetron HCl (Ondansetron Inj 2 Mg/Ml 2 Ml Vial) 4 mg IV Q6H PRN PRN Reason: Nausea Stop: 03/10/24 17:08 Polyethylene Glycol (Polyethylene (Miralax) 17 Gm Pack) 17 gm PO DAILY PRN PRN Reason: Constipation Stop: 03/10/24 17:08 Prednisolone Acetate (Prednisolone Acetate 1% Op Susp 5 Ml Btl) 1 drops OPR DAILY [facility] Stop: 03/11/24 08:59 Last Admin: 02/10/24 08:04 Dose: 1 drops
[2024-02-11] MEDS: ASPIRIN 81 MG ECTAB PO SCH (08:48)
[2024-02-11] MEDS: Heparin IV Adult Wt-Based Standard *NO* INITIAL Bolus Protocol IV STA (12:40)
--- NOTE | 2024-02-11 17:59 | Hospitalist Progress Note ---
Date of Service February 11, 2024 Assessment & Plan (1) Atypical chest pain: (2) Atrial flutter: (3) Moderate aortic valve stenosis: (4) Hypertension: (5) Hyperlipidemia: Plan This is a 74-year-old male who has a significant past medical history of paroxysmal atrial fibrillation/flutter with hx of CTI ablation 04/2023, hypertrophic cardiomyopathy, HTN, HLD, aortic valve stenosis, gout, history of retinal detachment who presents to ED secondary to chest pain. He follows with [facility]. His last echocardiogram was 12/01/23 with EF 65% which read a severely enlarged left atrium, moderate AV stenosis, mild AVR and mild MR. Atypical Chest Pain Persistent Atrial flutter/fibrillation with previous hx of CTI ablation 04/2023- rate controlled Moderate aortic valve stenosis Elevated troponin admitted to PCU concerning sx of angina in setting of risk factors including HTN, HLD, overweight continue metoprolol, losartan and eliquis last Echo 11/30 mod , persevered LVEF fasting lipids, LDL 81 Echo obtained - EF 65-70%, LV wall motion is normal. LA severely dilated. Moderate to borderline severe . Cardiology consulted, and discussed with - pt in need of evaluation of - plan for TAVR, also presenting with symptoms of angina and likely CAD - pt had more chest pain overnight -> plan for cardiac cath, transfer to [facility], switch from eliquis to IV heparin (awaiting bed) per cardiology * Patient also has multiple risk factors for CAD * Suspect patient will need Coronary Angiography and evaluation of aortic valve for potential intervention; DOAC would need to be held * Continue Statin; LDL 81 * Start ASA 81 mg po per day * Continue Losartan 100 mg po per day * Continue Toprol 100 mg po per day * Please hold DOAC * Would start Heparin at the time when his next DOAC dose would be due (in PM) * Accepting Physician - Mao Parra * Accepting Facility - [facility] [place] HTN: continue metoprolol, losartan, as above HLD: chronic, stable continue statin Alcohol use: pt admits to drinking 2-3 beers/day. he has gone a period of time w/o it and has not had any adverse effect, monitor. DVT ppx: eliquis -> IV heparin FULL CODE PCP: Dr. Obrien Dispo: PCU -> plan to transfer to [facility] once bed available Admission and Anticipated Discharge Date Admission Date: February 11, 2024 Subjective Pt seen in follow up of chest pain Currently sitting up in bed in [facility], CP resolved initially in ED after giving nitro, however pt had more angina symptoms overnight Family present at the bedside Cardiology consulted and discussed with - plan for cardiac cath and eval for severe / TAVR --> plan to transfer pt to [facility] (currently awaiting bed) Review of Systems Review of Systems: All systems reviewed & are unremarkable except as noted in Subjective Physical Exam Physical Exam: Constitutional: WD/WN obese M in [facility] Head: Normocephalic, Atraumatic Eyes: PERRL, conjunctivae normal, anicteric sclerae ENMT: external ear and nose normal Neck: supple Respiratory: normal respiratory effort, lungs clear to auscultation, no wheeze, rales, rhonchi. Normal insp/exp effort, no accessory muscle use Cardiovascular: RRR, + syst. murmur Chest: normal inspection of chest Abdomen: normal bowel sounds, soft, nontender, obese Musculoskeletal: moves extremities Skin: warm, dry Neurologic: PERRL, EOMI, no face palsy, no dysarthria, moves all extremities Psychiatric: A+Ox3, euthymic affect Results & Data Results & Data Vital Signs (Past 12 Hours) Vital Signs Temp Pulse Pulse Resp BP Pulse Ox O2 Del Method 02/11/24 15:19 60 02/11/24 15:00 36.6 C 77 16 125/63 95 Room Air 02/11/24 11:17 36.5 C 87 18 114/62 96 Room Air 02/11/24 07:17 36.5 C 70 16 97/62 L 90 Room Air 02/11/24 07:16 61 Laboratory Results 02/11/24 Range/Units 06:06 WBC 10.02 (4.8-10.8) K/ul RBC 5.27 (4.70-6.10) M/uL Hgb 13.9 L (14.0-18.0) g/dl Hct 44.4 (42.0-52.0) % MCV 84.3 (80.0-100.0) fL MCH 26.4 (25.0-34.0) pg MCHC 31.3 L (32.0-36.0) g/dL RDW Std Deviation 49.7 H (36.4-46.3) fL RDW Coeff of Shahnaz 16.4 H (11.5-14.5) % Plt Count 188 (130-400) K/uL MPV 10.3 (9.4-12.4) fL Sodium 139 (136-145) mmol/L Potassium 3.9 (3.5-5.1) mmol/L Chloride 105 (98-107) mmol/L Carbon Dioxide 27 (21-32) mmol/L Anion Gap 7 (3-11) BUN 25 H (6-23) mg/dl Creatinine 0.89 (0.6-1.4) mg/dl Est Cr Clr Drug Dosing 83.7 ml/min eGFR 90.49 BUN/Creatinine Ratio 28.1 H (10-20) Glucose 98 (70-99(Fasting)) mg/dl Calcium 9.2 (8.6-10.3) mg/dl Phosphorus 3.2 (2.5-4.9) mg/dl Magnesium 2.0 (1.7-2.4) mg/dl Medications Administered Current Inpatient Medications Acetaminophen (Acetaminophen 325 Mg Tab) 650 mg PO Q4H PRN PRN Reason: Pain or Fever Stop: 03/10/24 17:08 Allopurinol (Allopurinol 300 Mg Tab) 300 mg PO [facility] Stop: 03/11/24 08:59 Last Admin: 02/11/24 08:50 Dose: 300 mg Apixaban (Apixaban 5 Mg Tablet) 5 mg PO BID [facility] Stop: 03/10/24 20:59 Last Admin: 02/11/24 08:49 Dose: 5 mg Aspirin (Aspirin 81 Mg Ectab) 81 mg PO [facility] Stop: 03/12/24 08:59 Last Admin: 02/11/24 08:48 Dose: 81 mg Atorvastatin Calcium (Atorvastatin 40 Mg Tab) 40 mg PO [facility] Stop: 03/11/24 08:59 Last Admin: 02/11/24 08:49 Dose: 40 mg Heparin Sodium/Dextrose (Heparin Sodium/Dextrose) 25,000 units in 500 mls @ 29 mls/hr IV .[id number] [facility]; Protocol Stop: 03/12/24 20:59 Losartan Potassium (Losartan Potassium 50 Mg Tab) 100 mg PO DAILY [facility] Stop: 03/11/24 08:59 Last Admin: 02/11/24 08:49 Dose: 100 mg Metoprolol Succinate (Metoprolol Succ 50mg Ext Rel Tab) [facility] Stop: 03/11/24 08:59 Last Admin: 02/11/24 08:50 Dose: 100 mg Multivitamins (Multivitamin Tab) [facility] Stop: 03/11/24 08:59 Last Admin: 02/11/24 08:49 Dose: 1 tab Ondansetron HCl (Ondansetron Inj 2 Mg/Ml 2 Ml Vial) 4 mg IV Q6H PRN PRN Reason: Nausea Stop: 03/10/24 17:08 Polyethylene Glycol (Polyethylene (Miralax) 17 Gm Pack) 17 gm PO DAILY PRN PRN Reason: Constipation Stop: 03/10/24 17:08 Prednisolone Acetate (Prednisolone Acetate 1% Op Susp 5 Ml Btl) 1 drops OPR DAILY [facility] Stop: 03/11/24 08:59 Last Admin: 02/11/24 08:48 Dose: 1 drops
[2024-02-11 18:50] LABS: INR 1.1 (0.9-1.1); Partial Thromboplastin Time 27 Seconds (21-31); Prothrombin Time 12.2 Seconds (9.0-12.0)
[2024-02-11] MEDS: HEPARIN SODIUM/DEXTROSE 25,000 UNITS/500 ML BAG IV SCH (20:55)
[2024-02-12 04:31] LABS: ANTI-Xa, UFH(UnfractionatedHep 0.99 IU/ml (0.3-0.7)
[2024-02-12 06:41] LABS: Hematocrit (blood only) 42.6 % (42.0-52.0); Hemoglobin 13.5 g/dl (14.0-18.0); Mean Corpuscular Hemoglobin 26.9 pg (25.0-34.0); Mean Corpuscular Hgb Conc 31.7 g/dL (32.0-36.0); Mean Platelet Volume 10.7 fL (9.4-12.4); Platelet Count 201 K/uL (130-400); RDW Coefficient of Variation 16.1 % (11.5-14.5); RDW Standard Deviation 49.8 fL (36.4-46.3); Red Blood Count 5.01 M/uL (4.70-6.10); White Blood Count 10.24 K/ul (4.8-10.8)
[2024-02-12 07:03] LABS: ANTI-Xa, UFH(UnfractionatedHep 0.67 IU/ml (0.3-0.7)
[2024-02-12 11:20] LABS: BUN Creatinine Ratio 22.2 (10-20); Calcium 9.2 mg/dl (8.6-10.3); Creatinine Clr Calc Pharmacy 75.4 ml/min; Magnesium 2.1 mg/dl (1.7-2.4); Phosphorus 3.1 mg/dl (2.5-4.9)
[2024-02-12 12:09] LABS: ANTI-Xa, UFH(UnfractionatedHep 0.63 IU/ml (0.3-0.7)
--- NOTE | 2024-02-12 13:39 | Cardiology Progress Note ---
Date of Service February 12, 2024 Assessment & Plan (1) Chest pain: Plan 74 yo man presenting with chest pain Troponin:23.6, 25, 20.7 EKG: T wave inversions V3- V6 (old) CXR: no CHF, no major cardiomegaly LDL 81 Med Hx: PAF PVI s/p Ablation HTN Hyperlipidemia Aortic Stenosis Gout Retinal Detachment Plans: * + afib on DOAC * By exam, patient appears to have significant * ECHO - moderate to severe , LVEF 65-70% * Patient also has multiple risk factors for CAD * Suspect patient will need Coronary Angiography and evaluation of aortic valve for potential intervention; DOAC would need to be held * Continue Statin; LDL 81 * Kdur 40 meq po x 1 * Start ASA 81 mg po per day * SBP 114 mmHg, HR 87 * Continue Losartan 100 mg po per day * Continue Toprol 100 mg po per day * Please hold DOAC * Would start Heparin at the time when his next DOAC dose would be due (in PM) * Accepting Physician - Mao Parra * Accepting Facility - [facility] [place] * Communicated to Hospital Medicine * Communicated with Family * 55 min spent addressing challenges, educating and advancing daily plan of care Yang Santos 02/12/2024: -Resting comfortably in bed at this time. Continues with intermittent episodes of chest discomfort. -No acute changes on telemetry. -Continue on heparin gtt -Accepted and awaiting transfer to [facility]. Accepting Physician Marissa Teixeira -Euvolemic on exam. -Continue to hold Eliquis. Continue Heparin gtt. -Continue Losartan 100mg QD, Atorvastatin 40mg QD, ASA 81mg QD and Toprol xl 100mg QD -Renal function and electrolytes stable. Case has been discussed with Dr. Grullon. Further recommendations regarding plan of care as per his assessment. I spent a total of 30 minutes on the date of service in preparation, delivery, documentation of the care provided to the patient excluding any time spent in the performance of separately billed services. SHADY Arita [facility] Admission and Anticipated Discharge Date Admission Date: February 11, 2024 Supervising Physician Co-Signing Physician Notes Patient personally seen. Assessment and plan as outlined above. Case discussed in detail with advanced provider. Clinically stable overnight. Does describe transient episodes of chest discomfort but improved this afternoon On appropriate therapies with Eliquis on hold Subjective 02/12/2024: Patient seen and examined in follow up today. Feeling well at this time. Continues with intermittent episodes of jabbing chest pain overnight. Eliquis on hold. Remains on heparin gtt in anticipation for transfer to [facility] for cardiac cath, investigation of valvular disease. Labs, vitals, diagnostics, telemetry and documentation reviewed. Telemetry reviewed showing A-fib rates 60's No acute events overnight. and daughter are at bedside. Review of Systems Review of Systems: All systems reviewed & are unremarkable except as noted in HPI & below Physical Exam Constitutional: well developed and well nourished; no acute distress and not ill appearing Neck: normal visual inspection and trachea midline Respiratory: normal respiratory effort, lungs clear to auscultation Cardiovascular: Rate/Rhythm: + irregularly irregular Heart Sounds: normal S1, normal S2 and + murmur (+3/6 systolic ) Vessels: dorsalis pedis pulses present; no JVD Extremities: no edema Skin: no rashes, warm and dry Psychiatric: A+Ox3, euthymic affect Results & Data Vital Signs (Past 12 Hours) Vital Signs Temp Pulse Resp BP BP Pulse Ox O2 Del Method 02/12/24 11:15 36.5 C 59 L 17 114/64 94 Room Air 02/12/24 07:21 36.5 C 52 L 17 113/65 93 Room Air 02/12/24 03:11 36.5 C 60 20 146/77 H 96 Room Air Laboratory Results Coagulation 02/11/24 Range/Units 18:05 PT 12.2 H (9.0-12.0) Seconds APTT 27 (21-31) Seconds CBC 02/12/24 Range/Units 06:01 WBC 10.24 (4.8-10.8) K/ul RBC 5.01 (4.70-6.10) M/uL Hgb 13.5 L (14.0-18.0) g/dl Hct 42.6 (42.0-52.0) % Plt Count 201 (130-400) K/uL Comprehensive Metabolic Panel 02/12/24 Range/Units 06:01 Sodium 139 (136-145) mmol/L Potassium 4.0 (3.5-5.1) mmol/L Chloride 104 (98-107) mmol/L Carbon Dioxide 28 (21-32) mmol/L BUN 22 (6-23) mg/dl Creatinine 0.99 (0.6-1.4) mg/dl Glucose 93 (70-99(Fasting)) mg/dl Calcium 9.2 (8.6-10.3) mg/dl Intake and Output 02/11/24 02/12/24 02/12/24 22:59 06:59 14:59 Intake Total 200 / 803.683 303.683 / 803.683 132.8 / 132.8 Balance 200 / 803.683 303.683 / 803.683 132.8 / 132.8 Intake: IV 253.683 / 253.683 132.8 / 132.8 Heparin Sodium/Dextrose 25,000 253.683 / 253.683 132.8 / 132.8 units In 500 ml @ 1,200 UNITS/ HR 24 mls/hr IV .[id number] [facility] Rx #:[id number] Oral 200 / 550 50 / 550 Other: # Unmeasured Voids 2 1 Weight 97.9 kg Weight Measurement Method Built in [facility]
--- NOTE | 2024-02-12 15:02 | Hospitalist Progress Note ---
Date of Service February 12, 2024 Assessment & Plan (1) Atypical chest pain: (2) Atrial flutter: (3) Moderate aortic valve stenosis: (4) Hypertension: (5) Hyperlipidemia: Plan This is a 74-year-old male who has a significant past medical history of paroxysmal atrial fibrillation/flutter with hx of CTI ablation 04/2023, hypertrophic cardiomyopathy, HTN, HLD, aortic valve stenosis, gout, history of retinal detachment who presents to ED secondary to chest pain. He follows with [facility]. His last echocardiogram was 12/01/23 with EF 65% which read a severely enlarged left atrium, moderate AV stenosis, mild AVR and mild MR. Atypical Chest Pain Persistent Atrial flutter/fibrillation with previous hx of CTI ablation 04/2023- rate controlled Moderate aortic valve stenosis Elevated troponin admitted to PCU concerning sx of angina in setting of risk factors including HTN, HLD, overweight continue metoprolol, losartan and eliquis last Echo 11/30 mod , persevered LVEF fasting lipids, LDL 81 Echo obtained - EF 65-70%, LV wall motion is normal. LA severely dilated. Moderate to borderline severe . Cardiology consulted, and discussed with - pt in need of evaluation of - plan for TAVR, also presenting with symptoms of angina and likely CAD - pt had more chest pain overnight -> plan for cardiac cath, transfer to [facility], switch from eliquis to IV heparin (awaiting bed) per cardiology * Patient also has multiple risk factors for CAD * Suspect patient will need Coronary Angiography and evaluation of aortic valve for potential intervention; DOAC would need to be held * Continue Statin; LDL 81 * Start ASA 81 mg po per day * Continue Losartan 100 mg po per day * Continue Toprol 100 mg po per day * hold DOAC * cont. Heparin * Accepting Physician - Mao Parra * Accepting Facility - [facility] [place] HTN: continue metoprolol, losartan, as above HLD: chronic, stable continue statin Alcohol use: pt admits to drinking 2-3 beers/day. he has gone a period of time w/o it and has not had any adverse effect, monitor. DVT ppx: eliquis -> IV heparin FULL CODE PCP: Dr. Obrien Dispo: PCU -> plan to transfer to [facility] once bed available Admission and Anticipated Discharge Date Admission Date: February 11, 2024 Subjective Pt seen in follow up of chest pain Currently sitting up in bed in [facility], CP resolved initially in ED after giving nitro, however pt had more angina symptoms overnight Family present at the bedside Cardiology consulted and discussed with - plan for cardiac cath and eval for severe / TAVR --> plan to transfer pt to [facility] (currently awaiting bed) Again, with angina symptoms overnight. Per transfer center , no beds available at [facility] Review of Systems Review of Systems: All systems reviewed & are unremarkable except as noted in Subjective Physical Exam Physical Exam: Constitutional: WD/WN obese M in [facility] Head: Normocephalic, Atraumatic Eyes: PERRL, conjunctivae normal, anicteric sclerae ENMT: external ear and nose normal Neck: supple Respiratory: normal respiratory effort, lungs clear to auscultation, no wheeze, rales, rhonchi. Normal insp/exp effort, no accessory muscle use Cardiovascular: RRR, + syst. murmur Chest: normal inspection of chest Abdomen: normal bowel sounds, soft, nontender, obese Musculoskeletal: moves extremities Skin: warm, dry Neurologic: PERRL, EOMI, no face palsy, no dysarthria, moves all extremities Psychiatric: A+Ox3, euthymic affect Results & Data Results & Data Vital Signs (Past 12 Hours) Vital Signs Temp Pulse Resp BP BP Pulse Ox O2 Del Method 02/12/24 11:15 36.5 C 59 L 17 114/64 94 Room Air 02/12/24 07:21 36.5 C 52 L 17 113/65 93 Room Air 02/12/24 03:11 36.5 C 60 20 146/77 H 96 Room Air Laboratory Results 02/12/24 02/12/24 02/12/24 Range/Units 11:27 06:01 03:06 WBC 10.24 (4.8-10.8) K/ul RBC 5.01 (4.70-6.10) M/uL Hgb 13.5 L (14.0-18.0) g/dl Hct 42.6 (42.0-52.0) % MCV 85.0 (80.0-100.0) fL MCH 26.9 (25.0-34.0) pg MCHC 31.7 L (32.0-36.0) g/dL RDW Std Deviation 49.8 H (36.4-46.3) fL RDW Coeff of Shahnaz 16.1 H (11.5-14.5) % Plt Count 201 (130-400) K/uL MPV 10.7 (9.4-12.4) fL PT (9.0-12.0) Seconds INR (0.9-1.1) APTT (21-31) Seconds PTT Ratio Heparin Anti-Xa, Unfract 0.63 0.67 0.99 H* (0.3-0.7) IU/ml Sodium 139 (136-145) mmol/L Potassium 4.0 (3.5-5.1) mmol/L Chloride 104 (98-107) mmol/L Carbon Dioxide 28 (21-32) mmol/L Anion Gap 7 (3-11) BUN 22 (6-23) mg/dl Creatinine 0.99 (0.6-1.4) mg/dl Est Cr Clr Drug Dosing 75.4 ml/min eGFR 80.44 BUN/Creatinine Ratio 22.2 H (10-20) Glucose 93 (70-99(Fasting)) mg/dl Calcium 9.2 (8.6-10.3) mg/dl Phosphorus 3.1 (2.5-4.9) mg/dl Magnesium 2.1 (1.7-2.4) mg/dl 02/11/24 Range/Units 18:05 WBC (4.8-10.8) K/ul RBC (4.70-6.10) M/uL Hgb (14.0-18.0) g/dl Hct (42.0-52.0) % MCV (80.0-100.0) fL MCH (25.0-34.0) pg MCHC (32.0-36.0) g/dL RDW Std Deviation (36.4-46.3) fL RDW Coeff of Shahnaz (11.5-14.5) % Plt Count (130-400) K/uL MPV (9.4-12.4) fL PT 12.2 H (9.0-12.0) Seconds INR 1.1 (0.9-1.1) APTT 27 (21-31) Seconds PTT Ratio 1.0 Heparin Anti-Xa, Unfract (0.3-0.7) IU/ml Sodium (136-145) mmol/L Potassium (3.5-5.1) mmol/L Chloride (98-107) mmol/L Carbon Dioxide (21-32) mmol/L Anion Gap (3-11) BUN (6-23) mg/dl Creatinine (0.6-1.4) mg/dl Est Cr Clr Drug Dosing ml/min eGFR BUN/Creatinine Ratio (10-20) Glucose (70-99(Fasting)) mg/dl Calcium (8.6-10.3) mg/dl Phosphorus (2.5-4.9) mg/dl Magnesium (1.7-2.4) mg/dl Medications Administered Current Inpatient Medications Acetaminophen (Acetaminophen 325 Mg Tab) 650 mg PO Q4H PRN PRN Reason: Pain or Fever Stop: 03/10/24 17:08 Allopurinol (Allopurinol 300 Mg Tab) 300 mg PO [facility] Stop: 03/11/24 08:59 Last Admin: 02/12/24 08:14 Dose: 300 mg Apixaban (Apixaban 5 Mg Tablet) 5 mg PO BID [facility] Stop: 03/10/24 20:59 Last Admin: 02/11/24 08:49 Dose: 5 mg Aspirin (Aspirin 81 Mg Ectab) 81 mg PO [facility] Stop: 03/12/24 08:59 Last Admin: 02/12/24 08:19 Dose: Not Given Atorvastatin Calcium (Atorvastatin 40 Mg Tab) 40 mg PO [facility] Stop: 03/11/24 08:59 Last Admin: 02/12/24 08:15 Dose: 40 mg Heparin Sodium/Dextrose (Heparin Sodium/Dextrose) 25,000 units in 500 mls @ 24 mls/hr IV .[id number] [facility]; Protocol Stop: 03/12/24 20:59 Last Titration: 02/12/24 12:28 Dose: 1,200 units/hr, 24 mls/hr Losartan Potassium (Losartan Potassium 50 Mg Tab) 100 mg PO DAILY [facility] Stop: 03/11/24 08:59 Last Admin: 02/12/24 08:14 Dose: 100 mg Metoprolol Succinate (Metoprolol Succ 50mg Ext Rel Tab) 100 mg PO [facility] Stop: 03/11/24 08:59 Last Admin: 12/06/24 08:14 Dose: Not Given Multivitamins (Multivitamin Tab) 1 tab PO QAM [facility] Stop: 03/11/24 08:59 Last Admin: 02/12/24 08:13 Dose: 1 tab Ondansetron HCl (Ondansetron Inj 2 Mg/Ml 2 Ml Vial) 4 mg IV Q6H PRN PRN Reason: Nausea Stop: 03/10/24 17:08 Polyethylene Glycol (Polyethylene (Miralax) 17 Gm Pack) 17 gm PO DAILY PRN PRN Reason: Constipation Stop: 03/10/24 17:08 Prednisolone Acetate (Prednisolone Acetate 1% Op Susp 5 Ml Btl) 1 drops OPR DAILY [facility] Stop: 03/11/24 08:59 Last Admin: 02/12/24 08:15 Dose: 1 drops
[2024-02-13 07:13] VITALS: RESP 18
[2024-02-13 07:42] LABS: ANTI-Xa, UFH(UnfractionatedHep 0.52 IU/ml (0.3-0.7)
[2024-02-13 11:16] VITALS: TEMP 97.7
[2024-02-13 16:01] VITALS: BP 137/89; O2SAT 97
--- NOTE | 2024-02-13 17:13 | Discharge Summary ---
Date of Service February 13, 2024 Admission HPI Per Admitting Provider This is a 74-year-old male who has a significant past medical history of paroxysmal atrial fibrillation/flutter with hx of CTI ablation 04/2023, hypertrophic cardiomyopathy, HTN, HLD, aortic valve stenosis, gout, history of retinal detachment who presents to ED secondary to chest pain. He follows with [facility]. His last echocardiogram was 12/01/23 with EF 65% which read a severely enlarged left atrium, moderate AV stenosis, mild AVR and mild MR. He was last seen in cardiology clinic in December. He was noted to be back in atrial fibrillation although not symptomatic. Per documentation he does have chronic shortness of breath and dizziness. At this point in time there was no changes in his medications and a repeat echo was to be done in approximately 6 months. Of note patient was recently transition from warfarin to Eliquis 2 weeks ago. He has not missed any medications. He reports that he presents to ED today due to having 2 episodes of chest pain over the last 2 days. He was out hunting with his son. He walked approximately 1.5 miles and had to have frequent stops due to being shortness of breath. When he was resting he developed substernal chest pain that was described as, "affl-mdj-odphoib on his chest," that radiated to his left neck and left shoulder. Pain was a 20 out of 10 when it started this morning. It lasted approximately 2 hours. He also reports feeling more short of breath than usual. He states right now he is still feeling the discomfort as a 4 out of 10. He denies any radiating symptoms at this time. He denies any recent illness. He denies his chest pain getting worse with any particular position or movement. He did not eat anything unusual. His symptoms are not made worse with deep breathing. He denies any fever, chills, sweats, lightheadedness, dizziness, cough, hemoptysis, diaphoresis, nausea, vomiting, abdominal pain or change in his bowel or urinary habits. Patient's outpatient records were reviewed. History also obtained from and family member at bedside. Denies tobacco use. He does drink 2-3 beers a day. He has gone 2-3 days w/o and has not had any signs of withdrawal Admission Exam Per Admitting Provider Constitutional: WD/WN, vitals as above, NAD, sitting up in bed, pleasant, conversing easily Head: Normocephalic, Atraumatic Eyes: PERRL, conjunctivae normal, anicteric sclerae ENMT: external ear and nose normal, oropharynx normal Neck: trachea midline, no thyromegaly normal visual inspection Respiratory: normal respiratory effort, lungs clear to auscultation, no wheeze, rales, rhonchi. Normal insp/exp effort, no accessory muscle use Cardiovascular: RRR, no murmur, no edema Vessels: no JVD or carotid bruit Chest: normal inspection of chest Abdomen: normal bowel sounds, soft, nontender, no hepatosplenomegaly Musculoskeletal: no cyanosis or clubbing, extremities motor strength 5/5 Skin: no rashes, warm and dry normal turgor Neurologic: PERRL, EOMI, accommodation nl, no face palsy, no dysarthria CN's II-XI intact bilaterally and moves all extremities Psychiatric: A+Ox3, euthymic affect Principal Diagnosis Severe aortic stenosis Angina/ chest pain Discharge Exam Constitutional: WD/WN obese M in NAD Head: Normocephalic, Atraumatic Eyes: PERRL, conjunctivae normal, anicteric sclerae ENMT: external ear and nose normal Neck: supple Respiratory: normal respiratory effort, lungs clear to auscultation, no wheeze, rales, rhonchi. Normal insp/exp effort, no accessory muscle use Cardiovascular: RRR, + syst. murmur Chest: normal inspection of chest Abdomen: normal bowel sounds, soft, nontender, obese Musculoskeletal: moves extremities Skin: warm, dry Neurologic: PERRL, EOMI, no face palsy, no dysarthria, moves all extremities Psychiatric: A+Ox3, euthymic affect Discharge Data Allergies Allergy/AdvReac Type Severity Reaction Status Date / Time No Known Allergies Allergy Unknown Verified 10/15/21 06:55 Consultations 02/09/24 16:28 Consult Cardiology Routine Hospital Course (1) Atypical chest pain: (2) Atrial flutter: (3) Moderate aortic valve stenosis: (4) Hypertension: (5) Hyperlipidemia: Plan This is a 74-year-old male who has a significant past medical history of paroxysmal atrial fibrillation/flutter with hx of CTI ablation 04/2023, hypertrophic cardiomyopathy, HTN, HLD, aortic valve stenosis, gout, history of retinal detachment who presents to ED secondary to chest pain. He follows with [facility]. His last echocardiogram was 12/01/23 with EF 65% which read a severely enlarged left atrium, moderate AV stenosis, mild AVR and mild MR. Atypical Chest Pain Persistent Atrial flutter/fibrillation with previous hx of CTI ablation 04/2023- rate controlled Moderate aortic valve stenosis Elevated troponin admitted to PCU concerning sx of angina in setting of risk factors including HTN, HLD, overweight continue metoprolol, losartan and eliquis last Echo 11/30 mod , persevered LVEF fasting lipids, LDL 81 Echo obtained - EF 65-70%, LV wall motion is normal. LA severely dilated. Moderate to borderline severe . Cardiology consulted, and discussed with - pt in need of evaluation of - plan for TAVR, also presenting with symptoms of angina and likely CAD - pt had more chest pain overnight -> plan for cardiac cath, transfer to [facility], switched from eliquis to IV heparin Per cardiology * Patient also has multiple risk factors for CAD * Suspect patient will need Coronary Angiography and evaluation of aortic valve for potential intervention; DOAC would need to be held * Continue Statin; LDL 81 * Start ASA 81 mg po per day * Continue Losartan 100 mg po per day * Continue Toprol 100 mg po per day * hold DOAC * cont. Heparin * Accepting Physician - Mao Parra * Accepting Facility - [facility] HTN: continue metoprolol, losartan, as above HLD: chronic, stable continue statin Alcohol use: pt admits to drinking 2-3 beers/day. he has gone a period of time w/o it and has not had any adverse effect, monitor. DVT ppx: eliquis -> IV heparin FULL CODE PCP: Dr. Obrien Dispo: PCU -> plan to transfer to [facility] Total Time Total Time Spent Total Time Spent (In Minutes): 40 Discharge Plan Discharge Items Patient Disposition: Transfer Acute Care Hospital Reason For Visit: CHEST PAIN Discharge Diagnosis: Severe aortic stenosis Angina/ chest pain Activity: Per Instructions section Non-emergency contact: Surgeon, Specialist and Restaurant Greeter Call non-emergency contact if: you have any medication questions and your symptoms worsen Follow-up/Referrals: Rashawn Obrien MD [Primary Care Provider] - Diet: Heart Healthy Addtl Attending Provider Instructions: Patient to be transferred to [facility] cardiology. Patient will be on IV heparin on transfer. Pending Studies at Discharge: No Stand-Alone Forms: My [email or web address] Skilled Items Patient informed of condition?: Yes DNR: No Discharge Level of Care: Other Communicable Disease: No Discharge Prognosis: Other Lines: Peripheral IV Urinary Catheter: No Medications and DC Order Prescriptions: New aspirin 81 mg Tablet,Delayed Release (Dr/Ec) 81 mg PO QAM Qty: 30 0RF Continued atorvastatin 40 mg Tablet 40 mg PO QAM metoprolol succinate 100 mg Tablet Extended Release 24 Hr 100 mg PO QAM allopurinol 300 mg Tablet 300 mg PO QAM sildenafil 100 mg Tablet 100 mg PO DAILY PRN (Reason: Erectile Dysfunction) Rx Instructions: administer 30 minutes to 4 hours before activity prednisolone acetate 1 % Drops,Suspension 1 drp OPHTHALMIC (EYE) DAILY Rx Instructions: R eye losartan 100 mg Tablet 100 mg PO DAILY Centrum Men 8 mg iron- 200 mcg-600 mcg Tablet 1 tab PO DAILY Held Eliquis 5 mg tablet 5 mg PO BID Hold Instructions: Resume on 02/18/24. discuss with underwriting clerks supervisor when/ if to resume Discharge Orders: Discharge Order (Routine); Ordered 02/13/24 Ordered By: Levi Chandra Admission Data Admit Date/Time: 02/11/24 13:12 Attending Provider: Levi Chandra Admit Provider: Levi Chandra Primary Care Provider: Rashawn Obrien Other Providers: Yang Santos; Mark Anthony Johnston
[2024-02-13 17:37] VITALS: PULSE 85
--- OUTSIDE RECORDS SUMMARY | 2024-02-14 00:08 | External Medical Summary | Summary of Care ---
Author Name Unknown Organization [facility] [address] [address] Phone [phone] Care Team Providers Care Alignment Technician Name Role Phone Rashawn Obrien MD Primary Care Provider [phone] Reason for Visit * Reason Onset Date Comments Advice 02/09/2024 [facility] Encounter Details Date Type Department Care Team (Late st Contact Info) Description 02/09/2024 Telephone Cardiology, [place] [address] [facility] [place] [id number] Henny [address] [place], [address] [place] [address] Advice ([facility]) Allergies No known active allergiesdocumented as of this encounter (statuses as of 02/09/2024) Medications Ascorbic Acid (VITAMIN C) 500 MG CAPS Take by mouth. Activ e Multiple Vitamins-Minerals (CENTRUM) Tablet Take 1 Tab by mouth daily. Active Zoster Vac Recomb Adjuvanted 50 MCG/0.5ML Intramuscular Suspension Reconstituted (SHINGRIX) Inject 0.5 mL into a large muscle now and repeat dose in 60 to 180 days 1 Each 1 01/20/20 20 Active Sildenafil Citrate 100 MG Oral TabletIndications: Other male erectile dysfunction Take 1 Tablet by mouth daily as needed for Erectile Dysfunction. 10 Tablet 5 01/23/20 21 Active prednisoLONE Acetate 1 % Ophthalmic Suspension (Pred Forte) Instill 1 Drop into both eyes daily. 10 mL 4 03/12/19 22 Active Additional Information Patient taking differently:1 Drop Both eyes Daily(AM),Daily right eye, Reported on 05/15/2022 Atorvastatin Calcium 40 MG Oral Tablet (Lipitor)Indicatio ns:Dyslipidemia, goal to be determined Take 1 Tablet by mouth in the morning. 90 Tablet 3 04/29/19 24 Active Allopurinol 300 MG Oral Tablet (Zyloprim)Indicati ons:Gouty arthropathy TAKE 1 TABLET BY MOUTH ONCE DAILY 90 Tablet 2 06/30/19 24 Active Sildenafil Citrate 100 MG Oral Tablet (Viagra)Indication s:Other male erectile dysfunction Take 1 Tablet by mouth daily as needed for Erectile Dysfunction. 1-4 hours before intercourse, no more than 1 dose in 24 hours. 10 Tablet 5 08/04/19 24 Active hydroCHLOROthiazid e 25 MG Oral Tablet (Hydrodiuril)Indic ations:Essential hypertension with goal blood pressure less than 130/80 Take 1 Tablet by mouth in the morning. 90 Tablet 1 12/11/19 24 Active Losartan Potassium 100 MG Oral Tablet (Cozaar)Indication s:Essential hypertension with goal blood pressure less than 130/80 Take 1 Tablet by mouth in the morning. In the morning.. 90 Tablet 1 12/11/19 24 Active Metoprolol Succinate ER 100 MG Oral Tablet Extended Release 24 Hour (toPROL XL)Indications:Hyp ertrophic cardiomyopathy (HCC),Essential hypertension with goal blood pressure less than 130/80 Take 1 Tablet by mouth in the morning. 90 Tablet 3 12/11/19 24 Active Apixaban 5 MG Oral Tablet (Eliquis)Indicatio ns:Paroxysmal atrial fibrillation (HCC),Anticoagulat ion management encounter Take 1 Tablet by mouth in the morning and 1 Tablet before bedtime. Stop warfarin. 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 Agree with ER eval, can follow up after * Telephone Encounter - Breanna Bagley LPN - 02/09/2024 2:14 PM EST Call placed to patient, patient currently at [facility] ED * Telephone Encounter - Giana Tse OSA - 02/09/2024 10:17 AM EST Person calling: Alexis Relationship to patient: pt Phone/Fax to return call: [phone] Reason for call(brief): chest pain Pharmacy: Provider Name:[facility] Detailed message to office:pt has chest pain, teams message sent, attempted to call clinic nurse line. Please advise documented in this encounter Plan of Treatment Upcoming Encounters Date Type Department Care Team (Late st Contact Info) Description 05/06/2024 8:20 AM EST Office Visit [facility] [address] [phone] Rashawn Obrien MD [address] [place] [address] 06/17/2024 7:15 AM EDT Cardiac Studies Cardiac Studies, [facility] [address] [place] [address] 07/05/2024 8:00 AM EDT Office Visit Cardiology, [facility] [address] [facility] [place] [address] Idalmis Mccrary CRNP [address] [place] [address] [place] [address] Scheduled Procedures Name Priority Associated Diagnoses Date/Ti [...] filedocumented as of this encounter Care Teams Alignment Technician Relationship Specialty Start Date End Date Rashawn Obrien MD [address] [place] [address] PCP - General 05/26/07 documented as of this encounter
--- OUTSIDE RECORDS SUMMARY | 2024-02-14 00:08 | External Medical Summary | Summary of Care ---
Author Name Unknown Organization [facility] Address [address] [place] [address] Phone [phone] Care Team Providers Care Stone Sandblaster Name Role Phone Rashawn Obrien MD Primary Care Provider [phone] Reason for Visit * Reason Onset Date Comments Advice 02/09/2024 [facility] Encounter Details Date Type Department Care Team (Late st Contact Info) Description 02/09/2024 Telephone Cardiology, [place] [address] [facility] [place] [phone] Henny Ku Lin[address], [address] [facility] [address] Advice ([facility]) Allergies No known active [...] mRNA, LNP-s, No Pre serve, 2-Dose Series (Twyxt) 05/17/2020,04/17/2020 Pneumococcal Conjugate Vacc, 13 Valent (Prevnar) [...] 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 Please advise documented in this encounter Plan of Treatment Upcoming Encounters Date Type Department Care Team (Late st Contact Info) Description 05/06/2024 8:20 AM EST Office Visit [facility] [address] [facility] [place] [phone] Rashawn Obrien MD [address] [facility] [place] [address] 06/17/2024 7:15 AM EDT Cardiac Studies Cardiac Studies, [facility] [address] [place] [address] 07/05/2024 8:00 AM EDT Office Visit Cardiology, [facility] [address] [facility] [place] [address] Idalmis Mccrary CRNP [address] [place] [address] Scheduled Procedures Name Priority Associated Diagnoses Date/Ti [...] Additional history exists Lipid Panel 02/10/2028 02/09/2023, 120 03/2021, 01/22/2021, Additional history exists DTap/Tdap Vaccines [...] filedocumented as of this encounter Care Teams Stone Sandblaster Relationship Specialty Start Date End Date Rashawn Obrien MD [address] [place] [address] PCP - General 05/26/07 documented as of this encounter
--- NOTE | 2024-02-15 17:08 | Coding Query ---
CODING QUERY To promote full compliance with coding requirements relating to patient care, provider participation is requested in all cases of tinsmith helper uncertainty. Please assist us with the question(s) below: Coding Question(s): The medical record reflects the following clinical evidence: Clinical Indicators: Slight elevation of troponin 23 - 25 - 20. EKG shows ST/T wave abnormality consider anterolateral ischemia. Risk Factor(s): CAD w/angina, HTN, atrial fibrillation/flutter Treatment: Serial troponin, EKG, echo, Cards consult, telemetry Physician's Response(s): _x__Demand ischemia ___Unable to determine Thank you Carol Ann Lozano Principal Diagnosis: "that condition established after study, to be chiefly responsible for occasioning the admission of the patient to the hospital for care." Co-Existing Principal Diagnosis: "when two or more diagnoses equally meet the criteria for principal diagnosis as determined by the circumstances of admission, diagnostic work up, and/or therapy provided, and the Alphabetic Index, Tabular List, or another coding guideline does not provide sequencing direction, any one of the diagnoses may be sequenced first." "When the physician has documented what appears to be a current diagnosis in the body of the record, but has not included the diagnosis in the final diagnostic statement, the physician should be asked whether the diagnosis should be added." (Source Coding [facility] 2 QTR90. p3-4) RENZO
== END 2024-02-13 17:37 | disposition short-term general hospital (02) | DRG 303 ==
LOC: 2S 11:37 → ED 11:37 → SUATTDRO 16:00 → 2S 16:48 → SUATTDRO 02-11 13:12

== ENCOUNTER 2024-05-23 05:26 | Inpatient (IN) ==
--- OUTSIDE RECORDS SUMMARY | 2024-05-23 05:36 | External Medical Summary | Summary of Care ---
Author Name Unknown Organization [facility] Address [address] [place] [address] Phone [phone] Care Team Providers Care Press And Blow Machine Tender Name Role Phone Rashawn Obrien MD Primary Care Provider Reason for Visit * Reason Onset Date Comments FYI 05/13/2024 Encounter Details Date Type Department Care Team (Late st Contact Info) Description 05/13/2024 Telephone Cardiology, [facility] [address] [facility] [place] [address] Nilton Mccrary CRNP [address] [place] [address] FYI Allergies No known active allergiesdocumented as of this encounter (statuses as of 05/16/2024) Medications Ascorbic Acid (VITAMIN C) 500 MG CAPS Take by mouth. Active Multiple Vitamins-Minerals (CENTRUM) Tablet Take 1 Tab by mouth daily. Active prednisoLONE Acetate 1 % Ophthalmic Suspension (Pred Forte) Instill 1 Drop into both eyes daily. 10 mL 4 2 Active Aspirin 81 MG Oral Tablet Chewable Take 1 Tablet by mouth in the morning. 30 Tablet 11 4 Active Allopurinol 300 MG Oral Tablet (Zyloprim)Indicati ons:Gouty arthropathy TAKE 1 TABLET BY MOUTH ONCE DAILY 90 Tablet 1 5 Active Apixaban 5 MG Oral Tablet (Eliquis) Take 1 Tablet by mouth in the morning and 1 Tablet before bedtime. 60 Tablet 11 5 Active Losartan Potassium 25 MG Oral Tablet (Cozaar)Indication s:Essential hypertension with goal blood pressure less than 130/80 Take 1 Tablet by mouth in the morning. 90 Tablet 3 5 Active Atorvastatin Calcium 40 MG Oral Tablet (Lipitor)Indicatio ns:Dyslipidemia, goal to be determined Take 1 Tablet by mouth in the morning. 90 Tablet 3 5 Active Losartan Potassium 50 MG Oral Tablet (Cozaar)Indication s:Essential hypertension with goal blood pressure less than 130/80 Take 1 Tablet by mouth in the morning. 90 Tablet 3 5 Active Carvedilol 12.5 MG Oral Tablet (Coreg) Take 1 Tablet by mouth in the morning and 1 Tablet before bedtime. 68 Tablet 11 5 Active Metoprolol Succinate ER 100 MG Oral Tablet Extended Release 24 Hour (toPROL XL)Indications:Hyp ertrophic cardiomyopathy (HCC),Essential hypertension with goal blood pressure less than 130/80 Take 1 Tablet by mouth in the morning. 90 Tablet 3 4 05/17/19 25 Discontin ued(Medic ation/Dos e Changed) documented as of this encounter (statuses as of 05/16/2024) Active Problems Problem Noted Date Diagnosed Date S/P AVR (aortic valve replacement) 02/17/2024 S/P CABG x 3 02/17/2024 Coronary artery disease invo lving [place] coronary artery of [place] heart with unstable angina pectoris 02/15/2024 Aortic valve stenosis 02/15/2024 Unstable angina 02/14/2024 Chest pain 02/11/2024 Nonrheumatic aortic valve stenosis 08/11/2022 Retinal edema [...] as of this encounter (statuses as of 05/16/2024) Resolved Problems Problem Noted Date Diagnosed Date [...] as of this encounter (statuses as of 05/16/2024) Immunizations Name Administration Dates Next Due COVID-19 mRNA, LNP-s, No Pre serve, 2-Dose Series (Arbovax) 05/17/2020,04/17/2020 Pneumococcal Conjugate Vacc, 13 Valent (Prevnar) [...] Comments:3-4 cigarettes Alcohol Use Standard Drinks/Week Comments Not Currently 0 (1 standard drink = 0.6 oz pur e alcohol) 4-5 beers on Sat and Sun PHQ-2 Answer Date Recorded PHQ Adult Total Score 0 02/22/2024 Hunger Vital Sign Answer Date Recorded Within the past 12 months, y ou worried that your food would run out before you got the money to buy more. Never true 02/22/20 24 Within the past 12 months, t he food you bought just didn't last and you didn't have money to get more. Never true 02/22/2024 Childcare Answer Date Recorded Do you feel overwhelmed with taking care of a child, family member or friend? No 02/22/2024 Does your family need help f inding childcare? (Household - for ages 0-17 years) Not on file 02/22/2024 Clothing Answer Date Recorded Have you been unable to get clothing when it was really needed? No 02/22/2024 Is your family able to get c lothes or diapers when needed? (Household - for ages 0-17 years) Not on file 02/22/2024 Personal Safety Answer Date Recorded Do you feel unsafe or have concerns for your saf ety? No 02/22/2024 Do you have concerns for you r family's safety? (Household - for ages 0-17 years) Not on file 02/22/2024 Utilities Answer Date Recorded Do you have trouble paying y our heating, water, or electric bill? No 02/22/2024 Is your family able to pay t he heat, water, or electric bill? (Household - for ages 0-17 years) Not on file 02/22/2024 Does your family have access to good internet? (Household - for ages 0-17 years) Not on file 02/22/2024 Employment Status Answer Date Recorded Are you unemployed or without regular income? No 02/22/2024 Does the household have a [facility] source of income? (Household - for ages 0-17 years) Not on file 02/22/2024 Social Connections Answer Date Recorded How often do you feel lonely or isolated from th ose around you? Never 02/22/2024 Financial Resource Strain Answer Date R ecorded Do you have any trouble payi ng for your medications, or do you think you might in the future? No 02/22/2024 Does your family have troubl e paying for medicine? (Household - for ages 0-17 years) Not on file 02/22/2024 Transportation Needs Answer Date Record ed Do you have trouble getting a ride to medical visits or work? (Adult - for ages 18 years and over) Not on file 02/22/2024 Does your family have a hard time getting a ride to doctors visits? (Household - for ages 0-17 years) Not on file 02/22/2024 Has lack of transportation k ept you from medical appointments, meetings, work, or from getting things needed for daily living? Check all that apply. No 02/22/2024 Do you (or your family) have trouble finding or paying for a ride (transportation)? (Household - for ages 0-17 years) Not on file 02/22/2024 Housing Stability Answer Date Recorded Do you currently live in a s helter or have no steady place to sleep at night? No 02/22/2024 Do you think you are at risk of becoming homeless? (Adult - for ages 18 years and over) Not on file 02/22/2024 Does your family worry about paying for your home or becoming homeless? (Household - for ages 0-17 years) Not on file 1 04/24/2023 Are you homeless or worried that you might be in the future? No 02/22/2024 Are you (or your family) gloria eless or worried that you might be in the future? (Household - for ages 0-17 years) Not on file Food Insecurity Answer Date Recorded Do you need food for this week? No 02/22/2024 Are you able to get enough f ood for your family? (Household - for ages 0-17 years) Not on file 02/22/2024 Does your family need food t his week? (Household - for ages 0-17 years) Not on file 02/22/2024 Do you always have enough fo od for your family? (Household - for ages 0-17 years) Not on file 02/22/2024 Food Insecurity Answer Date Recorded Within the past 12 months, y ou worried that your food would run out before you got the money to buy more. Never true 02/22/20 24 Within the past 12 months, t he food you bought just didn't last and you didn't have money to get more. Never true 02/22/2024 Do you need food for this week? 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 Answer Date of Assessment Author No 02/13/2024 6:54 PM Meredith Rivers RN * Are you blind or do you have serious difficulty seeing, even when wearing glasses? Answer Date of Assessment Author No 02/13/2024 6:54 PM Meredith Rivers RN * Do you have serious difficulty walking or climbing stairs? (5 years old or older) Answer Date of Assessment Author No 02/13/2024 6:54 PM Meredith Rivers RN * Do you have difficulty dressing or bathing? (5 years old or older) Answer Date of Assessment Author No 02/13/2024 6:54 PM Meredith Rivers RN * Because of a physical, mental, or emotional condition, do you have difficulty doing errands alone such as visiting a doctors office or shopping? (15 years old or older) Answer Date of Assessment Author No 02/13/2024 6:54 PM Meredith Rivers RN documented as of this encounter Mental Status * Because of a physical, mental, or emotional condition, do you have serious difficulty concentrating, remembering, or making decisions? (5 years old or older) Answer Entry Date Author No 02/13/2024 6:54 PM Meredith Rivers RN documented in this encounter Miscellaneous Notes * Telephone Encounter - Jyoti Mcmillan LPN - 05/16/2024 3:07 PM EDT Spoke with patient by phone, gave information in this encounter. Verbalized understanding - stop metoprolol start carvedilol Agreed to plan of care. * Addendum Note - Nilton Mccrary CRNP - 05/16/2024 2:51 PM EDT Addended by: NILTON MCCRARY on: 05/16/2024 02:51 PM Modules accepted: Orders * Telephone Encounter - Nilton Mccrary CRNP - 05/16/2024 2:50 PM EDT Thank You In order optimize blood pressure management further would recommend transitioning to carvedilol 12.5 mg twice daily. Thank You SHADY Shanks * Telephone Encounter - Valerie Moy CMA - 05/16/2024 2:35 PM EDT Patient returned called -- states he is taking Losartan 50 mg once daily. * Telephone Encounter - Jyoti Mcmillan LPN - 05/16/2024 2:20 PM EDT I left a message on patient's answering machine asking patient to call us back. * Telephone Encounter - Nilton Mccrary CRNP - 05/16/2024 12:55 PM EDT Cardiac rehab notes reviewed. Cardiac rehab notes notes indicate he is on losartan 25 mg daily; on chart review appears that his losartan dosing was increased at his PCP office visit 05/06/24. Please verify his current dosing medication, does not appear that BP reading improved at all after dose increase based on rehab notes. If his losartan has already been increased to 50 mg daily would likely need to consider transitioning him from metoprolol to carvedilol but like to 1st verify what he is currently taking Thank You, SHADY Shanks * Telephone Encounter - Valerie Moy CMA - 05/13/2024 8:09 AM EST Chas from [facility] cardiac rehab calling to provide an update on this patient. Patient has now had 7 sessions of cardiac rehab and has regularly had high blood pressure readings at rehab. Chas states when patient arrives at rehab, his systolic reading is usually 160s-190s and then around 150s-160s when leaving. BP currently is 164/90. Patient not reporting any symptoms at rehab and does not check BP at home Chas states they have faxed the notes for the last 7 sessions of patient's cardiac rehab. Will scanto FIMS when they arrive. documented in this encounter Plan of Treatment Upcoming Encounters Date Type Department Care Team (Late st Contact Info) Description 06/06/2024 9:30 AM EDT Nurse Only Ancillary Department, [place] [address] [place] [phone] Cristela, Nurse [address] [place] [address] 06/17/2024 7:15 AM EDT Cardiac Studies Cardiac Studies, [address] [place] [address] 06/23/2024 7:15 AM EDT Cardiac Studies Cardiac Studies, [address] [place] [address] 07/05/2024 8:00 AM EDT Office Visit [facility], [facility] [address] Nilton Mccrary CRNP [address] [facility] [address] 11/04/2024 8:00 AM EDT Office Visit Family [facility], [place] [address] [facility] [place] [phone] Rashawn Obrien MD [address] [facility] [place] [address] Scheduled Procedures Name Priority Associated Diagnoses Date/Ti me COLONOSCOPY FLEXIBLE PROXIMAL DIAGNOSTIC Recall History of colon polyps Health Maintenance Due Date Last Done Comments Cologuard 01/09/1996 Fecal Occult Blood Test 01/09/1996 Sigmoidoscopy 01/09/1996 Zoster Vaccines (2 of 3) 07/14/2012 05/19/2012 Colonoscopy 07/01/2022 07/01/2017, 06/08, 02/11/2013, Additional history exists Colorectal Cancer Screening 07/01/2022 Adult Wellness Visit 01/23/2023 01/23/2022 COVID-19 Vaccine (3 - 2023- season) 2023 05/17/2020, 04/17/2020 Depression Screening 02/21/2025 02/22/2024 GFR 05/12/2025 05/12/2024, 02/06, 02/20/2024, Additional history exists Albumin/Creatinine Ratio 02/09/2026 023, 02/06/2022, 01/20/2020, Additional history exists DTap/Tdap Vaccines (3 - Td or Tdap) 07/28/2028 07/28/2018, 11/01/2007 AAA Screening Completed 2017 RETIRED - COLONOSCOPY-EVERY 5 YRS AGES 18-100 Discontinued 07/01/2017, 07/01/2017, 02/11/2013, Additional history exists Pneumococcal Vaccine: 50+ Years Completed 01/07/2018, 12/30/2016 Influenza Vaccine (FLU [...] on patient's age to complete this topic Meningitis B Vaccine (Bexsero/Trumemba) Aged Out No longer eligible based on patient's age to complete this topic documented as of this encounter Medical Devices Implanted Type Area Vessel Engineer Device Identifier Shelf Expiration Date Model / Serial / Lot Suture Steel 6 B&S19 M654g - [id number] Implanted:Qty: 7 on 02/16/2024 [place] [facility] [place] Sternum JNJ : [employer] 11/06/2028 M654G / / 103BLE Clip Atrial Penditure 45mm - [id number] Implanted:Qty: 1 on 02/16/2024 by [place] [facility] [place]: Heart [employer] : CRM [id number] 05/27/2024 RICHIE C45 / / [id number] Valve Pericardial 25mm - [id number] - [id number] Implanted:Qty: 1 on 02/16/2024 by Bill [place] [facility] [place]A: Heart [employer] SOLIS [id number] 07/05/2027 [id number] / [id number] / [id number] Marker Coronary - [id number] Implanted:Qty: 2 on 02/16/2024 by Bill Kang [place] [facility] [place]/A: Aorta [employer] 12/06/2026 [facility] / / [id number] documented as of this encounter Visit Diagnoses Diagnosis Paroxysmal atrial fibrillation (HCC)- Primary Atrial fibrillation HTN, goal below 130/80 Unspecified essential hypertension documented in this encounter Advance Directives * Full Code (Latest Code Status on File) Date Activated Date Inactivated Comments 02/16/2024 2:06 PM 02/21/2024 3:43 PM This order reflects the patients wishes and were consensually agreed upon. Question Answer Comments Discussion of Advance Directives occurred with: Patient * Full Code Date Activated Date Inactivated Comments 02/13/2024 7:20 PM 02/16/2024 2:06 PM This order reflects the patients wishes and were consensually agreed upon. Question Answer Comments Discussion of Advance Directives occurred with: Patient Care Teams Press And Blow Machine Tender Relationship Specialty Start Date End Date Rashawn Obrien MD [address] [place] [address] PCP - General Family Medicine 03/16/24 documented as of this encounter
--- OUTSIDE RECORDS SUMMARY | 2024-05-23 05:36 | External Medical Summary | Summary of Care ---
Author Name Unknown Organization [facility] Address [address] [place] [address] Phone [phone] Care Team Providers Care Home Health Registered Nurse Name Role Phone Rashawn Obrien MD Primary Care Provider [phone] Reason for Visit * Reason Onset Date Comments FYI 05/13/2024 Encounter Details Date Type Department Care Team (Late st Contact Info) Description 05/13/2024 Telephone Cardiology, [facility] [address] [facility] [place] [address] Nilton Mccrary CRNP [address] [facility] [place] [address] FYI Allergies No known active [...] 3 02/17/2024 Coronary artery disease invo lving [place] coronary artery of [place] heart with unstable angina pectoris 02/15/2024 Aortic [...] mRNA, LNP-s, No Pre serve, 2-Dose Series (Revionics) 05/17/2020,04/17/2020 Pneumococcal Conjugate Vacc, 13 Valent (Prevnar) [...] No 02/22/2024 Does the household have a [facility] source of income? 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 Not [...] - 05/13/2024 8:09 AM EST Chas from [facility] cardiac rehab calling to provide an update [...] 9:30 AM EDT Nurse Only Ancillary Department, [place] [address] [facility] [address] [place] [phone] Cristela, Nurse [address] [place] [address] 06/17/2024 7:15 AM EDT Cardiac Studies Cardiac Studies, [address] [place] [address] 06/23/2024 7:15 AM EDT Cardiac Studies Cardiac Studies, [address] [place] [address] 07/05/2024 8:00 AM EDT Office Visit Cardiology, [facility] [address] Nilton Mccrary CRNP 400 [facility] [address] 11/04/2024 8:00 AM EDT Office Visit Family [facility], [place] [address] [facility] [place] [phone] Rashawn Obrien MD [address] [facility] [address] Scheduled Procedures Name Priority Associated Diagnoses Date/Ti [...] this encounter Medical Devices Implanted Type Area Water Plant Pump Operator Supervisor Device Identifier Shelf Expiration Date Model / Serial / Lot Suture Steel 6 B&S19 M654g - [id number] Implanted:Qty: 7 on 02/16/2024 by Bill Kang MD at [place] [facility] [place] N/A: Sternum JNJ : [employer] 11/06/2028 M654G / / 103BLE Clip Atrial Penditure 45mm - [id number] Implanted:Qty: 1 on 02/16/2024 by Bill Kang MD at [place] [facility] [place] N/A: Heart [employer] : CRM [id number] 05/27/2024 RICHIE C45 / / [id number] Valve Pericardial 25mm - [id number] - [id number] Implanted:Qty: 1 on 02/16/2024 by Bill Kang MD at [place] [facility] [place] N/A: Heart [employer] [id number] 07/05/2027 [id number] MM / [id number] / [id number] Marker Coronary - [id number] Implanted:Qty: 2 on 02/16/2024 by Bill Kang MD at [place] [facility] [place] N/A: Aorta [employer] 12/06/2026 [facility] / / [id number] documented as of this encounter Visit Diagnoses [...] Advance Directives occurred with: Patient Care Teams Home Health Registered Nurse Relationship Specialty Start Date End Date Rashawn Obrien MD [address] [place] [address] PCP - General Family Medicine 03/16/24 documented as of this encounter
--- OUTSIDE RECORDS SUMMARY | 2024-05-23 05:36 | External Medical Summary | Summary of Care ---
Author Name Unknown Organization [facility] Address [address] [place] [address] Phone [phone] Care Team Providers Care Optometry Doctor Name Role Phone Rashawn Obrien MD Primary Care Provider [phone] Reason for Visit * Reason Onset Date Comments FYI 05/13/2024 Encounter Details Date Type Department Care Team (Late st Contact Info) Description 05/13/2024 Telephone Cardiology, [facility] [address] [facility] [place] [address] Nilton Mccrary CRNP 400 [place] [address] FYI Allergies No known active [...] 3 02/17/2024 Coronary artery disease invo lving [place] coronary artery of [place] heart with unstable angina pectoris 02/15/2024 Aortic [...] mRNA, LNP-s, No Pre serve, 2-Dose Series (apomio) 05/17/2020,04/17/2020 Pneumococcal Conjugate Vacc, 13 Valent (Prevnar) [...] No 02/22/2024 Does the household have a [facility] source of income? 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 [address] [facility] [address] Nilton Mccrary CRNP [address] [facility] [address] 11/04/2024 8:00 AM EDT Office Visit Family [facility], [place] [address] [facility] [place] [phone] Rashawn Obrien MD [address] [facility] [address] Scheduled Procedures Name Priority Associated Diagnoses Date/Ti [...] this encounter Medical Devices Implanted Type Area Pottery Machine Operator Device Identifier Shelf Expiration Date Model / Serial / Lot Suture Steel 6 B&S19 M654g - [id number] Implanted:Qty: 7 on 02/16/2024 by Bill Kang MD at [place] [facility] [place] N/A: Sternum JNJ : [employer] 11/06/2028 M654G / / 103BLE Clip Atrial Penditure 45mm - [id number] Implanted:Qty: 1 on 02/16/2024 by Bill Kang MD at [place] [facility] [place] N/A: Heart [employer] : CRM [id number] 05/27/2024 RICHIE C45 / / [id number] Valve Pericardial 25mm - [id number] - [id number] Implanted:Qty: 1 on 02/16/2024 by Bill Kang MD at [place] [facility] [place] N/A: Heart [employer] [id number] 07/05/2027 [id number] MM / [id number] / [id number] Marker Coronary - [id number] Implanted:Qty: 2 on 02/16/2024 by Bill Kang MD at [place] [facility] [place] N/A: Aorta [employer] 12/06/2026 [facility] / / [id number] documented as of this encounter Visit Diagnoses [...] Advance Directives occurred with: Patient Care Teams Optometry Doctor Relationship Specialty Start Date End Date Rashawn Obrien MD [address] [address] PCP - General Family Medicine 03/16/24 documented as of this encounter
--- OUTSIDE RECORDS SUMMARY | 2024-05-23 05:36 | External Medical Summary | Summary of Care ---
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 Not [...] - 05/13/2024 8:09 AM EST Chas from [facility] cardiac rehab calling to provide an update [...] 9:30 AM EDT Nurse Only Ancillary Department, [place] [facility] [address] [facility] [address] [place] [phone] Cristela, Nurse [address] [place] [address] 06/17/2024 7:15 AM EDT Cardiac Studies Cardiac Studies, [address] [place] [address] 06/23/2024 7:15 AM EDT Cardiac Studies Cardiac Studies, [address] [place] [address] 07/05/2024 8:00 AM EDT Office Visit [facility], [facility] [address] [facility] [address] Nilton Mccrary CRNP [address] [facility] [address] 11/04/2024 8:00 AM EDT Office Visit Family [facility], [place] [address] [facility] [place] [phone] Rashawn Obrien MD [address] [facility] [place] [address] Scheduled Procedures Name Priority Associated Diagnoses Date/Ti [...] this encounter Medical Devices Implanted Type Area Louver Mortiser Operator Device Identifier Shelf Expiration Date Model / Serial / Lot Suture Steel 6 B&S19 M654g - [id number] Implanted:Qty: 7 on 02/16/2024 [place] [facility] [place] Sternum JNJ : [employer] 11/06/2028 M654G / / 103BLE Clip Atrial Penditure 45mm - [id number] Implanted:Qty: 1 on 02/16/2024 by Bill Kang [place] [facility] [place] Heart [employer] : CRM [id number] 05/27/2024 RICHIE C45 / / [id number] Valve Pericardial 25mm - [id number] - [id number] Implanted:Qty: 1 on 02/16/2024 by Bill Kang [place] [facility] [place]: Heart [employer] [id number] 07/05/2027 [id number] MM / [id number] / [id number] Marker Coronary - [id number] Implanted:Qty: 2 on 02/16/2024 by Bill Kang MD [place] [facility] [place]: Aorta [employer] 12/06/2026 [facility] / / [id number] documented as of this encounter Visit Diagnoses [...] Advance Directives occurred with: Patient Care Teams Developer Relations Manager Relationship Specialty Start Date End Date Rashawn Obrien MD [address] [place] [address] PCP - General Family Medicine 03/16/24 documented as of this encounter
--- OUTSIDE RECORDS SUMMARY | 2024-05-23 05:37 | External Medical Summary | Summary of Care ---
Author Name Unknown Organization [facility] Address [address] [place] [address] Phone [phone] Care Team Providers Care Principal System Software Engineer Name Role Phone Mariajose Obrien MD Primary Care Provider Reason for Visit * Reason Comments eRx-Medication Refill Encounter Details Date Type Department Care Team (Late st Contact Info) Description 04/23/2024 Refill [facility] [address] [place] [address] Mariajose Obrien MD [address] [place], [place] [id number] Dyslipidemia, goal to be determined Allergies No known active allergiesdocumented as of this encounter (statuses as of 04/24/2024) Medications Ascorbic Acid (VITAMIN C) 500 MG CAPS Take by mouth. Active Multiple Vitamins-Minerals (CENTRUM) Tablet Take 1 Tab by mouth daily. Active prednisoLONE Acetate 1 % Ophthalmic Suspension (Pred Forte) Instill 1 Drop into both eyes daily. 10 mL 4 03/12/19 22 Active Metoprolol Succinate ER 100 MG Oral Tablet Extended Release 24 Hour (toPROL XL)Indications:Hyp ertrophic cardiomyopathy (HCC),Essential hypertension with goal blood pressure less than 130/80 Take 1 Tablet by mouth in the morning. 90 Tablet 3 12/11/19 24 Active Aspirin 81 MG Oral Tablet Chewable Take 1 Tablet by mouth in the morning. 30 Tablet 11 02/21/20 24 Active Allopurinol 300 MG Oral Tablet (Zyloprim)Indicati ons:Gouty arthropathy TAKE 1 TABLET BY MOUTH ONCE DAILY 90 Tablet 1 03/21/19 25 Active Apixaban 5 MG Oral Tablet (Eliquis) Take 1 Tablet by mouth in the morning and 1 Tablet before bedtime. 60 Tablet 11 03/25/19 25 Active Losartan Potassium 25 MG Oral Tablet (Cozaar)Indication s:Essential hypertension with goal blood pressure less than 130/80 Take 1 Tablet by mouth in the morning. 90 Tablet 3 04/20/19 25 Active Atorvastatin Calcium 40 MG Oral Tablet (Lipitor)Indicatio ns:Dyslipidemia, goal to be determined Take 1 Tablet by mouth in the morning. 90 Tablet 3 04/24/19 25 Active Atorvastatin Calcium 40 MG Oral Tablet (Lipitor)Indicatio ns:Dyslipidemia, goal to be determined Take 1 Tablet by mouth in the morning. 90 Tablet 3 04/29/19 24 025 Discontinued documented as of this encounter (statuses as of 04/24/2024) Active Problems Problem Noted Date Diagnosed Date S/P AVR (aortic valve replacement) 02/17/2024 S/P CABG x 3 02/17/2024 Coronary artery disease invo lving [place] coronary artery of [place] heart with unstable angina pectoris 02/15/2024 Aortic [...] as of this encounter (statuses as of 04/24/2024) Resolved Problems Problem Noted Date Diagnosed Date [...] as of this encounter (statuses as of 04/24/2024) Immunizations Name Administration Dates Next Due COVID-19 mRNA, LNP-s, No Pre serve, 2-Dose Series (Bass Manager) 05/17/2020,04/17/2020 Pneumococcal Conjugate Vacc, 13 Valent (Prevnar) [...] No 02/22/2024 Does the household have a re lar source of income? (Household - for ages [...] Industry Job Start Date Job End Date [place] Not on file Not on file Not [...] encounter Miscellaneous Notes * Telephone Encounter - Gisela Skelton [facility] - 04/24/2024 11:06 AM EST Signed Prescriptions: Disp Refills Atorvastatin Calcium 40 MG Oral Tablet (Li*90 Tab*3 Sig: Take 1 Tablet by mouth in the morning.Authorizing Provider: MARIAJOSE OBRIEN User: GISELA SKELTON documented in this encounter Plan of Treatment Upcoming Encounters Date Type Department Care Team (Late st Contact Info) Description 05/06/2024 8:20 AM EST Office Visit [facility] Michele [address] [place] [phone] Mariajose Obrien MD [address] [place] [address] 06/17/2024 7:15 AM EDT Cardiac Studies Cardiac Studies, [facility] 132 [facility] [place] [address] 06/23/2024 7:15 AM EDT Cardiac Studies Cardiac Studies, [facility] [address] [place] [address] 07/05/2024 8:00 AM EDT Office Visit Cardiology, [facility] [address] [place] [address] Idalmis Mccrary CRNP [address] [place] [address] Scheduled Procedures Name Priority Associated Diagnoses Date/Ti me COLONOSCOPY FLEXIBLE PROXIMAL DIAGNOSTIC Recall History of colon polyps Health Maintenance Due Date Last Done Comments Cologuard 01/09/1996 Fecal Occult Blood Test 01/09/1996 Sigmoidoscopy 01/09/1996 Zoster Vaccines (2 of 3) 07/14/2012 05/19/2012 Colonoscopy 07/01/2022 07/01/2017, 06/08, 02/11/2013, Additional history exists Colorectal Cancer Screening 07/01/2022 COVID-19 Vaccine ( season) 2023 05/17/2020, 04/17/2020 GFR 02/20/2025 02/21/2024, 02/06, 02/19/2024, Additional history exists Depression Screening 02/21/2025 02/22/2024 Albumin/Creatinine Ratio 02/09/2026 023, 02/06/2022, 01/20/2020, Additional [...] this encounter Medical Devices Implanted Type Area Buggy Ladle Tender Device Identifier Shelf Expiration Date Model / Serial / Lot Suture Steel 6 B&S19 M654g - [id number] Implanted:Qty: 7 on 02/16/2024 by Bill Kang MD [place] [facility] [place]/A: Sternum JNJ : [employer] 11/06/2028 M654G / / 103BLE Clip Atrial Penditure 45mm - [id number] Implanted:Qty: 1 on 02/16/2024 by Bill Kang MD [place] [facility] [place]/A: Heart [employer] : CRM [id number] 05/27/2024 RICHIE C45 / / [id number] Valve Pericardial 25mm - [id number] - [id number] Implanted:Qty: 1 on 02/16/2024 by Bill Kang MD at [place] [facility] [place] N/A: Heart [employer] [id number] 07/05/2027 [id number] MM / [id number] / [id number] Marker Coronary - [id number] Implanted:Qty: 2 on 02/16/2024 by iBll Kang MD at [place] [facility] [place] N/A: Aorta [employer] 12/06/2026 [facility] / / [id number] documented as of this encounter Visit Diagnoses Diagnosis Dyslipidemia, goal to be determined Other and unspecified hyperlipidemia documented in this encounter Advance Directives * [...] Advance Directives occurred with: Patient Care Teams Principal System Software Engineer Relationship Specialty Start Date End Date Mariajose Obrien MD 132 [facility] [place] [address] PCP - General Family Medicine 03/16/24 documented as of this encounter
--- OUTSIDE RECORDS SUMMARY | 2024-05-23 05:37 | External Medical Summary | Summary of Care ---
Author Name Unknown Organization [facility] Address [address] [place] [address] Phone [phone] Care Team Providers Care Ems Coordinator Name Role Phone Rashawn Obrien MD Primary Care Provider [phone] Encounter Details Date Type Department Care Team (Late st Contact Info) Description 03/28/2024 Population Health External Data Unspecified Department Allergies No known active allergiesdocumented as of this encounter (statuses as of 03/28/2024) Medications Ascorbic Acid (VITAMIN C) 500 MG CAPS Take by mouth. Active Multiple Vitamins-Minerals (CENTRUM) Tablet Take 1 Tab by mouth daily. Active prednisoLONE Acetate 1 % Ophthalmic Suspension (Pred Forte) Instill 1 Drop into both eyes daily. 10 mL 4 2 Active Atorvastatin Calcium 40 MG Oral Tablet (Lipitor)Indication s:Dyslipidemia, goal to be determined Take 1 Tablet by mouth in the morning. 90 Tablet 3 4 Active Metoprolol Succinate ER 100 MG Oral Tablet Extended Release 24 Hour (toPROL XL)Indications:Hype rtrophic cardiomyopathy (HCC),Essential hypertension with goal blood pressure less than 130/80 Take 1 Tablet by mouth in the morning. 90 Tablet 3 4 Active Aspirin 81 MG Oral Tablet Chewable Take 1 Tablet by mouth in the morning. 30 Tablet 11 4 Active Losartan Potassium 25 MG Oral Tablet (Cozaar) Take 1 Tablet by mouth in the morning. 30 Tablet 5 4 Active Allopurinol 300 MG Oral Tablet (Zyloprim)Indicatio ns:Gouty arthropathy TAKE 1 TABLET BY MOUTH ONCE DAILY 90 Tablet 1 5 Active Apixaban 5 MG Oral Tablet (Eliquis) Take 1 Tablet by mouth in the morning and 1 Tablet before bedtime. 60 Tablet 11 5 Active documented as of this encounter (statuses as of 03/28/2024) Active Problems Problem Noted Date Diagnosed Date S/P AVR (aortic valve replacement) 02/17/2024 S/P CABG x 3 02/17/2024 Coronary artery disease invo lving [place] coronary artery of [place] heart with unstable angina pectoris 02/15/2024 Aortic [...] as of this encounter (statuses as of 03/28/2024) Resolved Problems Problem Noted Date Diagnosed Date [...] as of this encounter (statuses as of 03/28/2024) Immunizations Name Administration Dates Next Due COVID-19 mRNA, LNP-s, No Pre serve, 2-Dose Series (RigUp) 05/17/2020,04/17/2020 Pneumococcal Conjugate Vacc, 13 Valent (Prevnar) [...] 02/22/2024 Does the household have a re gular source of income? (Household - for ages [...] ages 0-17 years) Not on file 02/22/2024 Sex and Gender Information Value Date Recorded Sex Assigned at Male 07/08/2018 7:18 AM EDT Legal Sex Male 7:12 AM EST Gender Identity Male 07/08/2018 7:18 AM EDT Sexual Orientation Straight 07/08/2018 7: 18 AM EDT Occupation Industry Job Start Date Job End Date [employer] Not on file Not on file Not [...] Meredith Rivers RN documented in this encounter Plan of Treatment Upcoming Encounters Date Type Department Care Team (Late st Contact Info) Description 05/06/2024 8:20 AM EST Office Visit [facility] Heather Bautista [address] [place] [phone] Rashawn Obrien MD [address] [place] [address] 06/17/2024 7:15 AM EDT Cardiac Studies Cardiac Studies, [facility] [address] 06/23/2024 7:15 AM EDT Cardiac Studies Cardiac Studies, [address] [place] [address] 07/05/2024 8:00 AM EDT Office [address], [address] [address] Idalmis Mccrary CRNP 400 [facility] [place] [address] Scheduled Procedures Name Priority Associated Diagnoses Date/Ti me COLONOSCOPY FLEXIBLE PROXIMAL DIAGNOSTIC Recall History of colon polyps Health Maintenance Due Date Last Done Comments Cologuard 01/09/1996 Fecal Occult Blood Test 01/09/1996 Sigmoidoscopy 01/09/1996 Zoster Vaccines (2 of 3) 07/14/2012 05/19/2012 Colonoscopy 07/01/2022 07/01/2017, 06/08, 02/11/2013, Additional history exists Colorectal Cancer Screening 07/01/2022 COVID-19 Vaccine ( - season) 2023 05/17/2020, 04/17/2020 GFR 02/20/2025 02/21/2024, [...] this encounter Medical Devices Implanted Type Area Bank Operations Officer Device Identifier Shelf Expiration Date Model / Serial / Lot Suture Steel 6 B&S19 M654g - [id number] Implanted:Qty: 7 on 02/16/2024 [place] [facility] [place]: Sternum JNJ : [employer] 11/06/2028 M654G / / 103BLE Clip Atrial Penditure 45mm - [id number] Implanted:Qty: 1 on 02/16/2024 by Bill Kang MD [place] [facility] [place]: Heart [employer] : CRM [id number] 05/27/2024 RICHIE C45 / / [id number] Valve Pericardial 25mm - [id number] - [id number] Implanted:Qty: 1 on 02/16/2024 by Bill Kang MD [place] [facility] [place]: Heart [employer] [id number] 07/05/2027 [id number] MM / [id number] / [id number] Marker Coronary - [id number] Implanted:Qty: 2 on 02/16/2024 by Bill Kang MD [place] [facility] [place]: Aorta [employer] 12/06/2026 AM[facility] / / [id number] documented as of this encounter Advance Directives * Full Code [...] Advance Directives occurred with: Patient Care Teams Ems Coordinator Relationship Specialty Start Date End Date Rashawn Obrien MD [address] [place] [address] PCP - General Family Medicine 03/16/24 documented as of this encounter
--- OUTSIDE RECORDS SUMMARY | 2024-05-23 05:37 | External Medical Summary | Summary of Care ---
Author Name Unknown Organization [facility] Address [address] [place] [address] Phone [phone] Care Team Providers Care Plastic Boat Patcher Name Role Phone Rashawn Obrien MD Primary Care Provider [phone] Reason for Visit * Reason Comments Dosage Adjustment In Person (Anticoag Cl inic) Encounter Details Date Type Department Care Team (Latest Contact Info) Description 03/28/2024 7:50 AM EST Anticoagulation Pharmacy, [facility] [address] [place] [phone] [facility] [address] [place] [address] Anticoagulation management encounter*; Paroxysmal atrial fibrillation (HCC); S/P AVR (aortic valve replacement); S/P CABG x 3 Allergies No known active allergiesdocumented as of [...] 3 02/17/2024 Coronary artery disease invo lving crow coronary artery of crow heart with unstable angina pectoris 02/15/2024 Aortic [...] mRNA, LNP-s, No Pre serve, 2-Dose Series (PlotWatt) 05/17/2020,04/17/2020 Pneumococcal Conjugate Vacc, 13 Valent (Prevnar) [...] 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 file Not [...] Entry Date Author No 02/13/2024 6:54 PM EST Meredith Claros RN documented in this encounter Progress Notes * Rhoda Alexander RPh - 03/28/2024 7:45 AM EST Medication Therapy Disease Management - Anticoagulation Patient: Alexis Garcia | : 1950 Subjective Patient-Reported Symptoms: Patient Findings Positives: Missed doses (last dose of warfarin was or Thursday of last week) Negatives: Signs/symptoms of thrombosis, Signs/symptoms of bleeding, Change in health, Change in alcohol use, Change in activity, Upcoming invasive procedure, Extra doses, Change in medications, Change in diet/appetite, Bruising Objective Current Warfarin Dose As of 03/28/2024 Warfarin maintenance plan: 2.5 mg (5 mg x 0.5) every Wed; 5 mg (5 mg x 1) all other days INR Result As of 03/28/2024 INR goal: 2.0-3.0 INR used for dosing: -- Anticoagulation Episode Summary Resolved date: 03/28/2024 Resolved reason: Alternate Therapy Initiated Assessment & Plan Warfarin Plan As of 03/28/2024 STOP warfarin. START Eliquis 5 mg twice daily. ACC to sign off at this time as DOAC therapy does not require routine monitoring. Thank you for allowing us to be involved in the care of this patient. Welcome future referrals if needs change for anticoagulation. I spent a total of 10-19 minutes (exact time 10 mins) on the date of service in preparation, delivery, and documentation of the care provided to Alexis Garcia excluding any time spent in the performance of separately billed services or time spent by another provider/QHP. Rhoda Alexander RPh Clinical Pharmacist 03/28/2024, 7:45 AM documented in this encounter Plan of Treatment Upcoming Encounters Date Type Department Care Team (Late st Contact Info) Description 05/06/2024 8:20 AM EST Office Visit [facility] Heather Bautista [address] [phone] Rashawn Obrien MD [address] [place] [address] 06/17/2024 7:15 AM EDT Cardiac Studies Cardiac Studies, [facility] 132 [facility] [place] [address] 06/23/2024 7:15 AM EDT Cardiac Studies Cardiac Studies, [facility] 132 [facility] [address] 07/05/2024 8:00 AM EDT Office [address], [address] [address] Idalmis Mccrary CRNP [address] [place] [address] Scheduled Procedures Name Priority Associated Diagnoses Date/Ti [...] this encounter Medical Devices Implanted Type Area Assistant Professor Of Dietetics Device Identifier Shelf Expiration Date Model / Serial / Lot Suture Steel 6 B&S19 M654g - [id number] Implanted:Qty: 7 on 02/16/2024 [place] [facility] [place] Sternum JNJ : [employer] 11/06/2028 M654G / / 103BLE Clip Atrial Penditure 45mm - [id number] Implanted:Qty: 1 on 02/16/2024 by Bill Kang [place] [facility] [place] Heart [employer] : CRM [id number] 05/27/2024 RICHIE C45 / / [id number] Valve Pericardial 25mm - [id number] - [id number] Implanted:Qty: 1 on 02/16/2024 by Bill Kang [place] [facility] [place]: Heart [employer] [id number] 07/05/2027 [id number] MM / [id number] / [id number] Marker Coronary - [id number] Implanted:Qty: 2 on 02/16/2024 by Bill Kang [place] [facility] [place]: Aorta [employer] 12/06/2026 AM-[place] / / [id number] documented as of this encounter Procedures Procedure Name Priority Date/Time Associated Diagnosis Comments INR FINGERSTICK, POINT OF CARE STAT 03/28/2024 7:52 AM EST Paroxysmal atrial fibrillation (HCC) S/P AVR (aortic valve replacement) S/P CABG x 3 Anticoagulation management encounter documented in this encounter Results * INR FINGERSTICK, POINT OF CARE (03/28/2024 7:52 AM EST) Fingerstick INR 1.2 INR 8:02 AM EST [facility]- Blood 03/28/2024 7:52 AM EST 03/28/2024 8:02 AM EST Narrative [facility]- - 03/28/2024 8:02 AM EST Therapeutic ranges for non-operative patients: Prophylaxsis/treatment of DVT: (Range:2.0-3.0) Treatment of pulmonary embolism:(Range:2.0-3.0) Prevention of systemic embolism from: -tissue heart valves -acute myocardial infarction -valvular heart disease -atrial fibrillation (Range: 2.0-3.0) Mechanical prosthetic valves: (Range: 2.5-3.5) Rhoda Alexander [facility] POINT OF CARE TEST DOCKED DEVICE UNSOLICITED RESULTS Final Result [facility]- [address] [place] [address], [facility] documented in this encounter Visit Diagnoses Diagnosis Anticoagulation management encounter- Primary Encounter for therapeutic drug monitoring Paroxysmal atrial fibrillation (HCC) Atrial fibrillation S/P AVR (aortic valve replacement) Heart valve replaced by other means S/P CABG x 3 Postsurgical aortocoronary bypass status documented in this encounter Advance Directives * [...] Advance Directives occurred with: Patient Care Teams Plastic Boat Patcher Relationship Specialty Start Date End Date Rashawn Obrien MD 132 [facility] [place] [address] PCP - General Family Medicine 1/8/25 documented as of this encounter"
--- OUTSIDE RECORDS SUMMARY | 2024-05-23 05:37 | External Medical Summary | Summary of Care ---
Author Name Unknown Organization [facility] Address [address] [place] [address] Phone [phone] Care Team Providers Care Veneer Drier Feeder Name Role Phone Rashawn Obrien MD Primary Care Provider Reason for Visit * Reason Comments Outpatient Testing Encounter Details Date Type Department Care Team (Late st Contact Info) Description 05/12/2024 7:40 AM EST Laboratory Laboratory, [facility] [address] [place] [phone] [facility] [address] [place] [address] Coronary artery disease involving eastern shoshone coronary artery of eastern shoshone heart with unstable angina pectoris (HCC); Dyslipidemia, goal LDL below 100; long-term current use of anticoagulant therapy; Acute gouty arthropathy Allergies No known active allergiesdocumented as of this encounter (statuses as of 05/12/2024) Medications Ascorbic Acid (VITAMIN C) 500 MG CAPS Take by mouth. Active Multiple Vitamins-Minerals (CENTRUM) Tablet Take 1 Tab by mouth daily. Active prednisoLONE Acetate 1 % Ophthalmic Suspension (Pred Forte) Instill 1 Drop into both eyes daily. 10 mL 4 2 Active Metoprolol Succinate ER 100 MG Oral [...] Active Losartan Potassium 25 MG Oral Tablet (Cozaar)Indications :Essential hypertension with goal blood pressure less than 130/80 Take 1 Tablet by mouth in the morning. 90 Tablet 3 5 Active Atorvastatin Calcium 40 MG Oral Tablet (Lipitor)Indication s:Dyslipidemia, goal to be determined Take 1 Tablet by mouth in the morning. 90 Tablet 3 5 Active Losartan Potassium 50 MG Oral Tablet (Cozaar)Indications :Essential hypertension with goal blood pressure less than 130/80 Take 1 Tablet by mouth in the morning. 90 Tablet 3 5 Active documented as of this encounter (statuses as of 05/12/2024) Active Problems Problem Noted Date Diagnosed Date S/P AVR (aortic valve replacement) 02/17/2024 S/P CABG x 3 02/17/2024 Coronary artery disease invo lving eastern shoshone coronary artery of eastern shoshone heart with unstable angina pectoris 02/15/2024 Aortic [...] as of this encounter (statuses as of 05/12/2024) Resolved Problems Problem Noted Date Diagnosed Date [...] as of this encounter (statuses as of 05/12/2024) Immunizations Name Administration Dates Next Due COVID-19 [...] Industry Job Start Date Job End Date [place] Not on file Not on file Not [...] 9:30 AM EDT Nurse Only Ancillary Department, [place] Lizarraga [facility] [place] Pedra[place] [phone] Nurse Cristela [address] [facility] [place] [address] 06/17/2024 7:15 AM EDT Cardiac Studies Cardiac Studies, [facility] [address] [facility] [place] [address] 06/23/2024 7:15 AM EDT Cardiac Studies Cardiac Studies, [facility] [address] [facility] [place] [address] 07/05/2024 8:00 AM EDT Office Visit Cardiology, [facility] [address] [facility] [place] [address] Idalmis Mccrary CRNP [address] [place] [address] JO[place] Zamarripa [id number] 11/04/2024 8:00 AM EDT Office Visit Family Practice, [place] Heather Bautista [address] [place] [phone] Rashawn Obrien MD [address] [place] [address] Pending Results Name Type Priority Associated Diagnoses Date /Time COMPREHENSIVE METABOLIC PANEL Lab Routine Coronary artery disease involving eastern shoshone coronary artery of eastern shoshone heart with unstable angina pectoris (HCC) Dyslipidemia, goal LDL below 100 05/12/2024 7:41 AM EST LIPID PANEL WITH DIRECT LDL IF TG IS HIGH Lab Routine Dyslipidemia, goal LDL below 100 05/12/2024 7:41 AM EST CBC Lab Routine long-term current use of anticoagulant therapy 05/12/2024 7:41 AM EST URIC ACID Lab Routine Acute gouty arthropathy 05/12/2024 7:41 AM EST Scheduled Procedures Name Priority Associated Diagnoses Date/Ti [...] this encounter Medical Devices Implanted Type Area Banquet Pilot Device Identifier Shelf Expiration Date Model / Serial / Lot Suture Steel 6 B&S19 M654g - [id number] Implanted:Qty: 7 on 02/16/2024 [place] [facility] [place] Sternum JNJ : [employer] 11/06/2028 M654G / / 103BLE Clip Atrial Penditure 45mm - [id number] Implanted:Qty: 1 on 02/16/2024 [place] [facility] [place]: Heart [employer] : CRM [id number] 05/27/2024 RICHIE C45 / / [id number] Valve Pericardial 25mm - [id number] - [id number] Implanted:Qty: 1 on 02/16/2024 [place] [facility] [place]: Heart [employer] SOLIS [id number] 07/05/2027 [id number] MM / [id number] / [id number] Marker Coronary - [id number] Implanted:Qty: 2 on 02/16/2024 by Bill Kang [place] [facility] [place]: Aorta [employer] 12/06/2026 [facility] / / [id number] documented as of this encounter Visit Diagnoses Diagnosis Coronary artery disease involving eastern shoshone coronary artery of eastern shoshone heart with unstable angina pectoris (HCC) Dyslipidemia, goal LDL below 100 Other and unspecified hyperlipidemia superintendent terminal current use of anticoagulant therapy Acute gouty arthropathy documented in this encounter Advance Directives * [...] Advance Directives occurred with: Patient Care Teams Veneer Drier Feeder Relationship Specialty Start Date End Date Rashawn Obrien MD 132 [facility] [place] [address] PCP - General Family Medicine 03/16/24 documented as of this encounter
--- OUTSIDE RECORDS SUMMARY | 2024-05-23 05:37 | External Medical Summary ---
Author Name Unknown Address Unknown Organization [id number]:[facility] [place] [address] [facility] [address] Laboratory Report Ordering Provider Test Date Status EDUARD BILLY 05/12/2024 07:41:07 Final Observation Date Value Abnormality Reference (Units ) Status WBC, Total 05/12/2024 07:41:07 10.70 4.00-10.80 (K/uL) Final RBC 05/12/2024 07:41:07 5.03 4.50-5.25 (M/uL) Final Hemoglobin 05/12/2024 07:41:07 11.4 Below low normal 14.0-16.8 (g/dL) Final HCT 05/12/2024 07:41:07 40.8 40.0-48.4 (%) Final MCV 05/12/2024 07:41:07 81.1 82.0-99.5 (fL) Final MCH 05/12/2024 07:41:07 22.7 27.0-34.0 (pg) Final MCHC 05/12/2024 07:41:07 27.9 32.0-36.0 (g/dL) Final RDW 05/12/2024 07:41:07 18.8 11.5-15.5 (%) Final Platelets 05/12/2024 07:41:07 280 140-400 (K/uL) Final MPV 05/12/2024 07:41:07 11.4 6.6-11.1 (fL) Final Nucleated erythrocytes/100 leukocytes [Ratio] in Blood by Automated count 05/12/2024 07:41:07 0 <=0 (/100 WBCs) Final Performing Location [facility] [place] [address] [place] [address]
--- OUTSIDE RECORDS SUMMARY | 2024-05-23 05:37 | External Medical Summary ---
Author Name Unknown Address Unknown Organization [id number][place] [place] [address] [facility] [place] [address] Laboratory Report Ordering Provider Test Date Status EDUARD BILLY 05/12/2024 07:41:07 Final Observation Date Value Abnormality Reference (Units ) Status BUN 05/12/2024 07:41:07 21 Above high normal 6-20 (mg/dL) Final Creatinine 05/12/2024 07:41:07 1.0 0.6-1.2 (mg/dL) Final Glomerular filtration rate/1.73 sq M.predicted [Volume Rate/Area] in Serum, Plasma or Blood by Creatinine-based formula (CKD-EPI) 05/12/2024 07:41:07 77 >=60 (mL/min) Final eGFR is calculated based on the CKD-EPI 2020 equation. Sodium 05/12/2024 07:41:07 144 135-146 (m mol/L) Final Potassium 05/12/2024 07:41:07 4.8 3.5-5.1 (m mol/L) Final Cl 05/12/2024 07:41:07 105 98-107 (mm ol/L) Final CO2 05/12/2024 07:41:07 27 22-32 (mmo l/L) Final Anion gap 05/12/2024 07:41:07 12 7-15 (mmol /L) Final Glucose 05/12/2024 07:41:07 98 70-120 (mg /dL) Final Albumin 05/12/2024 07:41:07 4.1 3.8-5.0 (g /dL) Final AST (Aspartate aminotransferase) 05/12/2024 07:41:07 16 10-50 (U/L) Final Alk Phos 05/12/2024 07:41:07 102 35-130 (U/ L) Final Bilirubin, Total 05/12/2024 07:41:07 0.6 <=1 .2 (mg/dL) Final Calcium 05/12/2024 07:41:07 9.9 8.4-10.2 ( mg/dL) Final Protein 05/12/2024 07:41:07 7.0 6.0-8.3 (g /dL) Final ALT (Alanine aminotransferase) 05/12/2024 07:41:07 12 10-50 (U/L) Final Performing Location [facility] [place] [address] [facility] [address]
--- OUTSIDE RECORDS SUMMARY | 2024-05-23 05:37 | External Medical Summary ---
Author Name Unknown Address Unknown Organization K01:[place] [place] [address] [place] [address] Laboratory Report Ordering Provider Test Date Status EDUARD BILLY 05/12/2024 07:41:07 Final Observation Date Value Abnormality Reference (Units ) Status Uric Acid 05/12/2024 07:41:07 4.8 3.4-7.0 (m g/dL) Final Performing Location LABORATORY [facility] - [address] [place] [address]
--- OUTSIDE RECORDS SUMMARY | 2024-05-23 05:37 | External Medical Summary | Summary of Care ---
Author Name Unknown Organization [facility] Address [address] [place] [address] Phone [phone] Care Team Providers Care Brand Sales Consultant Name Role Phone Rashawn Obrien MD Primary Care Provider [phone] Reason for Visit * Reason Onset Date Comments FYI 05/13/2024 Encounter Details Date Type Department Care Team (Late st Contact Info) Description 05/13/2024 Telephone Cardiology, [facility] [address] [facility] [place] [address] Idalmis Mccrary CRNP [address] [facility] [address] FYI Allergies No known active allergiesdocumented [...] 3 02/17/2024 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 02/15/2024 Aortic [...] mRNA, LNP-s, No Pre serve, 2-Dose Series (elicit) 05/17/2020,04/17/2020 Pneumococcal Conjugate Vacc, 13 Valent (Prevnar) [...] Industry Job Start Date Job End Date [place] Not on file Not on file Not [...] Telephone Encounter - Idalmis Mccrary CRNP - 05/16/2024 12:55 PM EDT [...] - 05/13/2024 8:09 AM EST Chas from [facility] cardiac rehab calling to provide an [...] 9:30 AM EDT Nurse Only Ancillary Department, [place] Rickey Lizarraga [address] [facility] [address] [place] [phone] Cristela Nurse [address] [place] [address] 06/17/2024 7:15 AM EDT Cardiac Studies Cardiac Studies, [facility] [address] [facility] [place] [address] 06/23/2024 7:15 AM EDT Cardiac Studies Cardiac Studies, [address] [place] [address] 07/05/2024 8:00 AM EDT Office Visit Cardiology, [facility] [address] [facility] [place] [address] Idalmis Mccrary CRNP [address] [facility] [place]amarripa [address] 11/04/2024 8:00 AM EDT Office Visit Family [facility], [place] [facility] [address] [facility] [place] Pedra[place] [phone] Rashawn Obrien MD [address] [facility] [place] [address] Scheduled Procedures Name Priority Associated Diagnoses Date/Ti [...] this encounter Medical Devices Implanted Type Area Converting Supervisor Device Identifier Shelf Expiration Date Model / Serial / Lot Suture Steel 6 B&S19 M654g - [id number] Implanted:Qty: 7 on 02/16/2024 by Bill Kang MD at [place] [facility] [place]/A: Sternum JNJ : [employer] 11/06/2028 M654G / / 103BLE Clip Atrial Penditure 45mm - [id number] Implanted:Qty: 1 on 02/16/2024 by Bill Kang MD at [place] [facility] [place] N/A: Heart [employer] : CRM [id number] 05/27/2024 RICHIE C45 / / [id number] Valve Pericardial 25mm - [id number] - [id number] Implanted:Qty: 1 on 02/16/2024 by Bill Kang MD at [place] [facility] [place] N/A: Heart [employer] [id number] 07/05/2027 [id number] MM / [id number] / [id number] Marker Coronary - [id number] Implanted:Qty: 2 on 02/16/2024 by Bill Kang MD at [place] [facility] [place] N/A: Aorta [employer] 12/06/2026 [facility] / / [id number] documented as of this encounter Advance Directives [...] Advance Directives occurred with: Patient Care Teams Brand Sales Consultant Relationship Specialty Start Date End Date Rashawn Obrien MD [address] [facility] [place] [address] PCP - General Family Medicine 03/16/24 documented as of this encounter
--- OUTSIDE RECORDS SUMMARY | 2024-05-23 05:37 | External Medical Summary | Summary of Care ---
Author Name Unknown Organization [facility] Address [address] [place] [address] Phone [phone] Care Team Providers Care Offset Machine Operator Name Role Phone Rashawn Obrien MD Primary Care Provider [phone] Encounter Details Date Type Department Care Team (Late st Contact Info) Description 05/09/2024 Orders Only PATIENT PORTAL DO NOT DELETE THIS DEPT USED BY JOSEFINA PANDYA [id number] Allergies No known active allergiesdocumented as of this encounter (statuses as of 05/09/2024) Medications Ascorbic Acid (VITAMIN C) 500 MG [...] as of this encounter (statuses as of 05/09/2024) Active Problems Problem Noted Date Diagnosed Date S/P AVR (aortic valve replacement) 02/17/2024 S/P CABG x 3 02/17/2024 Coronary artery disease invo lving [place] coronary artery of [place] heart with unstable angina pectoris 02/15/2024 Aortic [...] as of this encounter (statuses as of 05/09/2024) Resolved Problems Problem Noted Date Diagnosed Date [...] as of this encounter (statuses as of 05/09/2024) Immunizations Name Administration Dates Next Due COVID-19 mRNA, LNP-s, No Pre serve, 2-Dose Series (Nextinit) 05/17/2020,04/17/2020 Pneumococcal Conjugate Vacc, 13 Valent (Prevnar) [...] Industry Job Start Date Job End Date [place] Not on file Not on file Not [...] of Assessment Author No 02/13/2024 6:54 PM EST Lupold, K uday J, RN documented as of this encounter Mental [...] 9:30 AM EDT Nurse Only Ancillary Department, Cristela Lizarraga [address] [facility] [place] [phone] Cristela Nurse [address] [place] [address] 06/17/2024 7:15 AM EDT Cardiac Studies Cardiac Studies, [facility] 132 [facility] [place] [address] 06/23/2024 7:15 AM EDT Cardiac Studies Cardiac Studies, [facility] [address] [place] [address] 07/05/2024 8:00 AM EDT Office Visit Cardiology, [facility] [address] [place] [address] Idalmis Mccrary CRNP [address] [place] [address] 11/04/2024 8:00 AM EDT Office Visit Family Practice, [place]aut[place] [address] [facility] [place] [phone] Rashawn Obrien MD [address] [facility] [place] [address] Scheduled Procedures Name Priority Associated Diagnoses Date/Ti me COLONOSCOPY FLEXIBLE PROXIMAL DIAGNOSTIC Recall History of colon polyps Health Maintenance Due Date Last Done Comments Cologuard 01/09/1996 Fecal Occult Blood Test 01/09/1996 Sigmoidoscopy 01/09/1996 Zoster Vaccines (2 of 3) 07/14/2012 05/19/2012 Colonoscopy 07/01/2022 07/01/2017, 06/08, 02/11/2013, Additional history exists Colorectal Cancer Screening 07/01/2022 Adult Wellness Visit 01/23/2023 01/23/2022 COVID-19 Vaccine (3 - season) 2023 05/17/2020, 04/17/2020 GFR 02/20/2025 [...] this encounter Medical Devices Implanted Type Area Form Maker Device Identifier Shelf Expiration Date Model / Serial / Lot Suture Steel 6 B&S19 M654g - [id number] Implanted:Qty: 7 on 02/16/2024 by Bill Kang MD [place] [facility] [place]: Sternum JNJ : [employer] 11/06/2028 M654G / / 103BLE Clip Atrial Penditure 45mm - [id number] Implanted:Qty: 1 on 02/16/2024 by Bill Kang MD [place] [facility] [place]: Heart [employer] : CRM [id number] 05/27/2024 RICHIE C45 / / [id number] Valve Pericardial 25mm - [id number] - [id number] Implanted:Qty: 1 on 02/16/2024 by Bill Kang MD [place] [facility] [place]A: Heart [employer] [id number] 07/05/2027 [id number] MM / [id number] / [id number] Marker Coronary - [id number] Implanted:Qty: 2 on 02/16/2024 by Bill Kang MD [place] [facility] [place]A: Aorta [employer] 12/06/2026 [facility] / / [id number] documented as of this encounter Advance Directives [...] Advance Directives occurred with: Patient Care Teams Offset Machine Operator Relationship Specialty Start Date End Date Rashawn Obrien MD 132 [facility] [place] [address] PCP - General Family Medicine 03/16/24 documented as of this encounter
--- OUTSIDE RECORDS SUMMARY | 2024-05-23 05:37 | External Medical Summary ---
Author Name Unknown Address Unknown Organization K01:[facility] [place] [address] [facility] [place] [address] Laboratory Report Ordering Provider Test Date Status EDUARD BILLY 05/12/2024 07:41:07 Final Observation Date Value Abnormality Reference (Units ) Status Triglyceride 05/12/2024 07:41:07 92 <=174 ( mg/dL) Final Triglyceride Reference Range s (mg/dL):
<150 Acceptable
150-174 Borderline high
175-499 High
>=500 Very high Cholesterol 05/12/2024 07:41:07 137 <200 (mg /dL) Final Total Cholesterol Reference Ranges (mg/dL):
<200 Desirable
200-239 Borderline high
>=240 High HDL 05/12/2024 07:41:07 33 Below low normal >39 (mg/dL) Final HDL Cholesterol Reference Ra nges (mg/dL):
>=60 High (Desirable)
<50 Low (Undesirable) For Females
<40 Low (Undesirable) For Males NON-HDL CHOLESTEROL 05/12/2024 07:41:07 104 <=159 (mg/dL) Final Non-HDL Cholesterol Referenc e Range (mg/dL):
<100 Target level for high risk ASCVD patient
<130 Optimal for general population
130-159 Near optimal for general population
160-189 Borderline High
190-219 High
>=220 Very High LDL, (calculated) 05/12/2024 07:41:07 86 <= 129 (mg/dL) Final LDL Cholesterol Reference Ra nges (mg/dL):
<70 Target level for high risk ASCVD patient
<100 Optimal for general population
100-129 Near optimal for general population
130-159 Borderline high
160-189 High
>=190 Very high Performing Location LAB[facility]ATORY [facility] [place] - [address] [facility] [address]
--- OUTSIDE RECORDS SUMMARY | 2024-05-23 05:37 | External Medical Summary | Summary of Care ---
Author Name Unknown Organization [facility] Address [address] [place] [address] Phone [phone] Care Team Providers Care Heat Treat Puller Name Role Phone Rashawn Obrien MD Primary Care Provider [phone] Reason for Visit * Reason Onset Date Comments FYI 05/13/2024 Encounter Details Date Type Department Care Team (Late st Contact Info) Description 05/13/2024 Telephone Cardiology, [facility] [address] [facility] [place] [address] Nilton Mccrary CRNP 400 [place] [address] FYI Allergies No known active [...] 3 02/17/2024 Coronary artery disease invo lving [place] coronary artery of [place] heart with unstable angina pectoris 02/15/2024 Aortic [...] mRNA, LNP-s, No Pre serve, 2-Dose Series ([place]) 05/17/2020,04/17/2020 Pneumococcal Conjugate Vacc, 13 Valent (Prevnar) [...] No 02/22/2024 Does the household have a unm cancer centerlar source of income? (Household - for [...] Industry Job Start Date Job End Date [employer] Not on file Not on file [...] - 05/13/2024 8:09 AM EST Chas from [facility] cardiac rehab calling to provide an [...] 9:30 AM EDT Nurse Only Ancillary Department, [place] Buck[place]igel Lizarraga [address] [facility] [address] [place]ibald [phone] Crsitela, Nurse [address] [place] [address] 06/17/2024 7:15 AM EDT Cardiac Studies Cardiac Studies, [address] [place] [address] 06/23/2024 7:15 AM EDT Cardiac Studies Cardiac Studies, [address] [place] [address] 07/05/2024 8:00 AM EDT Office Visit Cardiology, [facility] [address] N[place] Mccrary CRNP [address] [facility] [place] [address] 11/04/2024 8:00 AM EDT Office Visit Family [facility], [place] Bautista [address] [facility] [place] Pedraza [phone] Rashawn Obrien MD 226 [facility] [place] [address] Scheduled Procedures Name Priority Associated Diagnoses Date/Ti [...] this encounter Medical Devices Implanted Type Area Ethnoarchaeology Professor Device Identifier Shelf Expiration Date Model / Serial / Lot Suture Steel 6 B&S19 M654g - [id number] Implanted:Qty: 7 on 02/16/2024 by Bill Kang MD at [place] [facility] [place] N/A: Sternum JNJ : [employer] 11/06/2028 M654G / / 103BLE Clip Atrial Penditure 45mm - [id number] Implanted:Qty: 1 on 02/16/2024 by Bill Kang MD at [place] [facility] [place] N/A: Heart [employer] : CRM [id number] 05/27/2024 RICHIE C45 / / [id number] Valve Pericardial 25mm - [id number] - [id number] Implanted:Qty: 1 on 02/16/2024 by Bill Kang MD at [place] [facility] [place] N/A: Heart [employer] [id number] 07/05/2027 [id number] MM / [id number] / [id number] Marker Coronary - [id number] Implanted:Qty: 2 on 02/16/2024 by Bill Kang MD at [place] [facility] [place] N/A: Aorta [employer] 12/06/2026 [facility] / / [id number] documented as of this encounter Visit Diagnoses [...] Advance Directives occurred with: Patient Care Teams Heat Treat Puller Relationship Specialty Start Date End Date Rashawn Obrien MD [address] [place] [address] PCP - General Family Medicine 03/16/24 documented as of this encounter
--- OUTSIDE RECORDS SUMMARY | 2024-05-23 05:37 | External Medical Summary | Summary of Care ---
Author Name Unknown Organization [facility] Address [address] [place] [address] Phone [phone] Care Team Providers Care Screen Printing Inspector Name Role Phone Rashawn Obrien MD Primary Care Provider Reason for Visit * Reason Comments Follow Up Patient is here toda y for a routine follow up. Patient states he is having some SOB while laying flat but has noticed he gets winded while walking as well. States that the SOB has been ongoing since his surgery in February. 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; Essential hypertension with goal blood pressure less than 130/80 Allergies No known active allergiesdocumented as of this encounter (statuses as of 05/07/2024) Medications Ascorbic Acid (VITAMIN C) 500 MG [...] as of this encounter (statuses as of 05/07/2024) Active Problems Problem Noted Date Diagnosed Date S/P AVR (aortic valve replacement) 02/17/2024 S/P CABG x 3 02/17/2024 Coronary artery disease invo lving [place] coronary artery of [place] heart with unstable angina pectoris 02/15/2024 Aortic [...] as of this encounter (statuses as of 05/07/2024) Resolved Problems Problem Noted Date Diagnosed Date [...] as of this encounter (statuses as of 05/07/2024) Immunizations Name Administration Dates Next Due COVID-19 mRNA, LNP-s, No Pre serve, 2-Dose Series ([employer]) 05/17/2020,04/17/2020 Pneumococcal Conjugate Vacc, 13 Valent (Prevnar) [...] Industry Job Start Date Job End Date [place] Not on file Not on file Not on file Not on file Not on file Not on file Not on file documented as of this encounter Last Filed Vital Signs Vital Sign Reading Time Taken Comments Blood Pressure 162/82 05/06/2024 8:11 AM EST Pulse 69 05/06/2024 8:11 AM EST Temperature 36.5 C (97.7 F) 05/06/2024 8:11 AM ES T Respiratory Rate 20 05/06/2024 8:11 AM EST Oxygen Saturation 95% 05/06/2024 8:11 AM EST Inhaled Oxygen Concentration - - Weight 96.1 kg (211 lb 14.4 oz) 05/06/2024 8:11 AM EST Height 170.2 cm (5' 7") 05/06/2024 8:11 AM EST Body Mass Index 33.19 05/06/2024 8:11 AM EST documented in this encounter Functional Status * Are you [...] Meredith Rivers RN documented in this encounter Progress Notes * Rashawn Obrien MD - 05/06/2024 8:19 AM EST Subjective: Alexis Garcia is a 74 year old male. Chief Complaint Patient presents with Follow Up Patient is here today for a routine follow up. Patient states he is having some SOB while laying flat but has noticed he gets winded while walkingas well. States that the SOB has been ongoing since his surgery in February. HPI: 74-year-old seen today as a routine visit. I saw him in mid February shortly after his major surgery [facility] in which he underwent three-vessel coronary artery bypass grafting, aortic valve replacement in left atrial appendage clipping. He now is doing cardiac rehab [place] . Although he is not having chest pain nor is he having heart racing, he does note a sense of shortness of breath especially when he lies down. His exertional capacity also remains limited because he gets short of breath. No abnormal bleeding. He is on Eliquis twice daily. His blood pressure systolic is elevated today and he tells me that it has consistently been elevated when he goes for cardiac rehab. He has been on losartan 100 mg daily prior to his CABG surgery in February of 2024 but because postoperative low blood pressure his losartan dose has been decreased to 25 mg daily. Last hemoglobin that I can see was 9.1 in the perioperative timeframe in February Patient Active Problem List Diagnosis Gout History of colonic polyps Mixed hearing [...] eye Retinal edema Nonrheumatic aortic valve stenosis Unstable angina (HCC) Coronary artery disease involving [place] coronary artery of [place] heart with unstable angina pectoris (HCC) Aortic valve stenosis Chest pain S/P AVR (aortic valve replacement) S/P CABG x 3 Current Outpatient Medications Medication Sig Dispense Refill Ascorbic Acid (VITAMIN C) 500 MG CAPS Take by mouth. Multiple Vitamins-Minerals (CENTRUM) Tablet Take 1 Tab by mouth daily. prednisoLONE Acetate 1 % Ophthalmic Suspension (Pred Forte) Instill 1 Drop into both eyes daily. 10mL 4 Metoprolol Succinate ER 100 MG Oral Tablet Extended Release 24 Hour (toPROL XL) Take 1 Tablet by mouth in the morning. 90 Tablet 3 Aspirin 81 MG Oral Tablet Chewable Take 1 Tablet by mouth in the morning. 30 Tablet 11 Allopurinol 300 MG Oral Tablet (Zyloprim) TAKE 1 TABLET BY MOUTH ONCE DAILY 90 Tablet 1 Apixaban 5 MG Oral Tablet (Eliquis) Take 1 Tablet by mouth in the morning and 1 Tablet before bedtime. 60 Tablet 11 Losartan Potassium 25 MG Oral Tablet (Cozaar) Take 1 Tablet by mouth in the morning. 90 Tablet 3 Atorvastatin Calcium 40 MG Oral Tablet (Lipitor) Take 1 Tablet by mouth in the morning. 90 Tablet 3 No current facility-administered medications for this visit. Review of patient's allergies indicates: No Known Allergies Objective: BP 162/82 (BP Site: Left Arm, BP Position: Sitting, BP Cuff Size: Regular) | Pulse 69 | Temp 97.7 F (36.5 C) (Tympanic) | Resp 20 | Ht 5' 7" (1.702 m) | Wt 211 lb 14.4 oz (96.1 kg) | SpO2 95% | BMI 33.19 kg/m | BSA 2.13 m Physical Exam: CONST: alert, pleasant, no acute distress HEAD: normocephalic, atraumatic NECK: supple, soft, no adenopathy Eyes - PERRLA, EOM'I OROPHARYNX: clear, no swelling or erythema, moist CV: regular rate and rhythm, no murmur CHEST: clear to auscultation bilaterally, no rales or wheezing ABD: soft, non tender, non distended, no masses or hepatosplenomegaly EXT: Trace bilateral ankle edema, he is wearing knee-high compression saw stockings. no joint swelling or deformities, NEURO: AAOx3, no gross focal deficits, cerebellar signs normal, affect appropriate MENTAL STATUS: no evidence of thought disorder, no delusional thought, no evidence of paranoia, thought is non-tangential. SKIN: no rash or significant lesions ASSESSMENT/PLAN: Hypertension-systolic blood pressure is elevated: Increase his losartan from 25- 50 mg daily. He mayneed to go back up to 100 mg a day. He is going to have a nurse BP check in a month after increasing his losartan dose. Will also have some idea his blood pressures as he continues to do his cardiac rehab. Dyspnea with exertion I think some of this is just recovering from major surgery eventually he willincrease his exercise tolerance. Need to rule out persistent anemia as that certainly could contribute. Check CBC. If he continues to have similar symptoms when I see him again in 6 months, will do more pulmonary workup Coronary artery disease involving [place] coronary artery of [place] heart with unstable angina pectoris (HCC)-remain on metoprolol succinate 100 mg daily History gout-continue allopurinol. Check uric acid Dyslipidemia goal LDL cholesterol is to be less than 70-check lipid panel in remain on [id number] mg a day. May need to increase dose See again 6 months. He is aware that he is a candidate for the shingles vaccine but he would have to get that a local pharmacy. Follow Up: Return in about 6 months (around 11/03/2024) for Return with Physician. | For: Return with Physician | Check-out note: Rtc nurse bp check 1 month Fasting labs next week Rashawn Obrien MD documented in this encounter Nursing Notes * Katherin Baez LPN - 05/06/2024 8:13 AM EST The patient has been properly identified by confirmation of name and date of . Chief Complaint Patient presents with Follow Up Patient is here today for a routine follow up. Patient states he is having some SOB while laying flat but has noticed he gets winded while walkingas well. States that the SOB has been ongoing since his surgery in February. documented in this encounter Plan of Treatment Upcoming Encounters Date Type Department Care Team (Late st Contact Info) Description 06/06/2024 9:30 AM EDT Nurse Only Ancillary Department, Cristela Lizarraga [address] [phone] Nurse Cristela [address] [place] [address] 06/17/2024 7:15 AM EDT Cardiac Studies [facility] [address] [facility] [place] [address] 06/23/2024 7:15 AM EDT Cardiac Studies Cardiac Studies, [facility] [place] [address] [place] [address] 07/05/2024 8:00 AM EDT Office Visit Cardiology, [facility] [place] [facility] [place] [address] Idalmis Mccrary CRNP [address] [place] [address] 11/04/2024 8:00 AM EDT Office Visit [facility] [address] [facility] [place] [phone] Rashawn Obrien MD [address] [place] [address] Scheduled Orders Name Type Priority Associated Diagnoses Orde r Schedule COMPREHENSIVE METABOLIC PANEL Lab Routine Coronary artery disease involving [place] coronary artery of [place] heart with unstable angina pectoris (HCC) Dyslipidemia, goal LDL below 100 Expected: 05/06/2024 (Approximate), Expires: 05/06/2025 LIPID PANEL WITH DIRECT LDL IF TG IS HIGH Lab Routine Dyslipidemia, goal LDL below 100 Expected: 05/06/2024, Expires: 05/06/2025 CBC Lab Routine 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 Expected: 05/06/2024 (Approximate), Expires: 05/06/2025 URIC ACID Lab Routine Acute gouty arthropathy Expected: 05/06/2024 (Approximate), Expires: 05/06/2025 Scheduled Procedures Name Priority Associated Diagnoses Date/Ti [...] this encounter Medical Devices Implanted Type Area Wire Dropper Device Identifier Shelf Expiration Date Model / Serial / Lot Suture Steel 6 B&S19 M654g - [id number] Implanted:Qty: 7 on 02/16/2024 by Bill Kang MD at [place] [facility] [place] [facility] [place]A: Sternum JNJ : [employer] 11/06/2028 M654G / / 103BLE Clip Atrial Penditure 45mm - [id number] Implanted:Qty: 1 on 02/16/2024 by Bill Kang MD at [place] [facility] [place] N/A: Heart [employer] : CRM [id number] 05/27/2024 RICHIE C45 / / [id number] Valve Pericardial 25mm - [id number] - [id number] Implanted:Qty: 1 on 02/16/2024 by Bill Kang MD at [place] [facility] [place] N/A: Heart [employer] SOLIS [id number] 07/05/2027 [id number] / [id number] / [id number] Marker Coronary - [id number] Implanted:Qty: 2 on 02/16/2024 by Bill Kang MD at [place] [facility] [place] N/A: Aorta [employer] 12/06/2026 [facility] / / [id number] documented as of this encounter Visit Diagnoses Diagnosis Dyslipidemia, goal LDL below 100- Primary Other and unspecified hyperlipidemia Coronary artery disease involving [place] coronary artery of [place] heart with unstable angina pectoris (HCC) Acute gouty arthropathy 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
--- OUTSIDE RECORDS SUMMARY | 2024-05-23 05:37 | External Medical Summary | Summary of Care ---
Author Name Unknown Organization [facility] Address [address] [place] [address] Phone [phone] Care Team Providers Care Crab Picker Name Role Phone Mariajose Obrien MD Primary Care Provider [phone] Encounter Details Date Type Department Care Team (Late st Contact Info) Description 04/18/2024 Refill [facility] [address] [place] [address] Mariajose Obrien MD [address] [place], [place] [phone] Essential hypertension with goal blood pressure less than 130/80* Allergies No known active allergiesdocumented as of this encounter (statuses as of 04/20/2024) Medications Ascorbic Acid (VITAMIN C) 500 MG [...] 90 Tablet 3 5 Active Losartan Potassium 25 MG Oral Tablet (Cozaar) Take 1 Tablet by mouth in the morning. 30 Tablet 5 4 04/20/19 25 Discontin ued(Refil l) documented as of this encounter (statuses as of 04/20/2024) Active Problems Problem Noted Date Diagnosed Date S/P AVR (aortic valve replacement) 02/17/2024 S/P CABG x 3 02/17/2024 Coronary artery disease invo lving [place] coronary artery of [place] heart with unstable angina pectoris 02/15/2024 Aortic [...] as of this encounter (statuses as of 04/20/2024) Resolved Problems Problem Noted Date Diagnosed Date [...] as of this encounter (statuses as of 04/20/2024) Immunizations Name Administration Dates Next Due COVID-19 mRNA, LNP-s, No Pre serve, 2-Dose Series ([employer]) 05/17/2020,04/17/2020 Pneumococcal Conjugate Vacc, 13 Valent (Prevnar) [...] 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 * Telephone Encounter - Kylah Santamaria OSA - 04/18/2024 9:24 AM EST Rosalino Major needs to change this from 30 day supply to 90 days supply. Please send new order to pharmacy. documented in this encounter Plan of Treatment Upcoming Encounters Date Type Department Care Team (Late st Contact Info) Description 05/06/2024 8:20 AM EST [address] [phone] Mariajose Obrien MD [address] [facility] [place] [address] 06/17/2024 7:15 AM EDT Cardiac Studies Cardiac Studies, [facility] [address] [place] [address] 06/23/2024 7:15 AM EDT Cardiac Studies Cardiac Studies, [facility] [address] [place] [address] 07/05/2024 8:00 AM EDT Office Visit Cardiology, [facility] [address] [place] [address] Idalmis Mccrary CRNP [address] [place] [id number] Scheduled Procedures Name Priority Associated Diagnoses Date/Ti [...] this encounter Medical Devices Implanted Type Area Taxi Driver Device Identifier Shelf Expiration Date Model / Serial / Lot Suture Steel 6 B&S19 M654g - [id number] Implanted:Qty: 7 on 02/16/2024 by Bill Kang MD at OR [facility] N/A: Sternum JNJ : [employer] 11/06/2028 M654G / / 103BLE Clip Atrial Penditure 45mm - [id number] Implanted:Qty: 1 on 02/16/2024 by Bill Kang MD at OR [facility] N/A: Heart [employer] : CRM [id number] 05/27/2024 RICHIE C45 / / [id number] Valve Pericardial 25mm - [id number] - [id number] Implanted:Qty: 1 on 02/16/2024 by Bill Kang MD at OR [facility] N/A: Heart [employer] [id number] 07/05/2027 [id number] MM / [id number] / [id number] Marker Coronary - [id number] Implanted:Qty: 2 on 02/16/2024 by Bill Kang MD at OR [facility] N/A: Aorta [employer] 12/06/2026 [facility] / / [id number] documented as of this encounter Visit Diagnoses Diagnosis Essential hypertension with goal blood pressure less than 130/80- Primary documented in this encounter Advance Directives * [...] Advance Directives occurred with: Patient Care Teams Crab Picker Relationship Specialty Start Date End Date Mariajose Obrien MD [address] [facility] [place] [address] PCP - General Family Medicine 03/16/24 documented as of this encounter
--- OUTSIDE RECORDS SUMMARY | 2024-05-23 05:37 | External Medical Summary ---
Author Name Unknown Address Unknown Organization : Laboratory Report Ordering Provider Test Date Status KENNETH ROTH 03/28/2024 07:52:56 Final Therapeutic ranges for non-o perative patients:
Prophylaxsis/treatment of DVT: (Range:2.0-3.0)
Treatment of pulmonary embolism:(Range:2.0-3.0)
Prevention of systemic embolism from:
-tissue heart valves
-acute myocardial infarction
-valvular heart disease
-atrial fibrillation
(Range: 2.0-3.0)
Mechanical prosthetic valves: (Range: 2.5-3.5) Observation Date Value Abnormality Reference (Units ) Status INR in Capillary blood by Coagulation assay 03/28/2024 07:52:56 1.2 (INR) Final Performing Location
--- OUTSIDE RECORDS SUMMARY | 2024-05-23 05:37 | External Medical Summary | Summary of Care ---
Author Name Unknown Organization [facility] Address [address] [place] [address] Phone [phone] Care Team Providers Care Insurance Coder Name Role Phone Rashawn Obrien MD Primary Care Provider [phone] Reason for Referral * Evaluate & Treat - Unlimited Visits (Within 10 days (routine)) - Pending Review Specialty Diagnoses / Procedures Referred By Contac t Referred To Contact CARDIAC REHAB / Cardiology Diagnoses Hx of CABG S/P TAVR (transcatheter aortic valve replacement) Idalmis Mccrary CRNP [address] [place] [address] Phone: tel: fax: Referral ID Status Reason Start Date Expiration Date Visits Requested Visits Authorized [id number] Pending Review Specialty Services Required 03/31/[phone] Question Answer Referral Priority Within 10 days (routine) Where should this appointment be scheduled? External - [facility] Cardiac Rehabilitation Modality No Preference, either is clinically appropriate Identify Cardiac Risk High Risk * Precert (Diagnostic Medical) (Within 10 days (routine)) - Pending Review Specialty Diagnoses / Procedures Referred By Contac t Referred To Contact Cardiac Studies Diagnoses Paroxysmal atrial fibrillation (HCC) Aortic valve stenosis, etiology of cardiac valve disease unspecified Hypertrophic cardiomyopathy (HCC) HTN, goal below 130/80 Hx of CABG S/P TAVR (transcatheter aortic valve replacement) Procedures ECHO, COMPLETE (2D), TRANS-THORACIC Idalmis Mccrary CRNP [address] [place] [address] Phone: tel: fax: Referral ID Status Reason Start Date Expiration Date Visits Requested Visits Authorized [id number] Pending Review Precert 06/23/2024 1 1 Reason for Visit * Reason Comments Follow Up Encounter Details Date Type Department Care Team (Late st Contact Info) Description 03/25/2024 10:00 AM EST Office Visit Cardiology, [address] [place] [address] Idalmis Mccrary CRNP [address] [place] [id number] Paroxysmal atrial fibrillation (HCC)*; Aortic valve stenosis, etiology of cardiac valve disease unspecified; Hypertrophic cardiomyopathy (HCC); HTN, goal below 130/80; Hx of CABG; S/P TAVR (transcatheter aortic valve replacement) Allergies No known active allergiesdocumented as of this encounter (statuses as of 04/14/2024) Medications Ascorbic Acid (VITAMIN C) 500 MG [...] as of this encounter (statuses as of 04/14/2024) Active Problems Problem Noted Date Diagnosed Date S/P AVR (aortic valve replacement) 02/17/2024 S/P CABG x 3 02/17/2024 Coronary artery disease invo lving sant[place] si[place] coronary artery of [place] heart with unstable angina pectoris 02/15/2024 Aortic [...] as of this encounter (statuses as of 04/14/2024) Resolved Problems Problem Noted Date Diagnosed Date [...] as of this encounter (statuses as of 04/14/2024) Immunizations Name Administration Dates Next Due COVID-19 [...] Industry Job Start Date Job End Date [employer] Not on file Not on file Not on file Not on file Not on file Not on file Not on file documented as of this encounter Last Filed Vital Signs Vital Sign Reading Time Taken Comments Blood Pressure 122/60 03/25/2024 9:23 AM EST Pulse 64 03/25/2024 9:23 AM EST Temperature - - Respiratory Rate 16 03/25/2024 9:23 AM EST Oxygen Saturation - - Inhaled Oxygen Concentration - - Weight 93.4 kg (206 lb) 03/25/2024 9:23 AM EST Height - - Body Mass Index 32.02 03/23/2024 10:49 AM EST documented in this encounter Functional [...] Progress Notes * Henny Ku DO - 04/13/2024 5:21 PM EST I have reviewed the advanced practitioner's documentation on the date of service referenced in note, and I agree with, and take responsibility for the plan of care. Pt seen in close 3 month EP f/u due to atrial flutter on coumadin and metoprolol s/p RICHIE clip Since he was last seen he ended up with a CABG and TAVR He is recovering overall ok No longer needs diuretics Will transition to eliquis; but given the RICHIE clip we could do a THANH and if it looks good could possibly stop AC Will arrange for cardiac CT in Apr Echo before next follow up Continue ASA, metoprolol, lipitor and losartan EP f/u 3 month Henny Ku DO Department of Cardiology [facility] [place] [address] * Idalmis Mccrary CRNP - 03/25/2024 9:21 AM EST Subjective Alexis Garcia is a 73 year old male. Chief Complaint Patient presents with Follow Up Routine EP follow Up Referring Provider: Dr. De León Cardiac Problems: Atrial flutter on metoprolol and coumadin [id number] (age, HTN). S/p CTI 05/06/23 at [facility] HTN HLD HCM CAD s/p CABG MITCHELL to LAD, SVG to OM, PDA 02/16/24 Severe s/p AVR 25mm magna ease 02/16/24 S/p RICHIE Clip 02/16/24 HPI: 74-year-old male presents today for hospital d/c and EP follow-up accompanied by his . He was last seen in the clinic approximately 3 months ago. He had a few episodes of chest pain at the beginning of February prompting presentation to the Emergency Room for further evaluation. Underwent additional workup at [facility] was concerning for underlyingischemic disease along with progression of his aortic valve disease prompting transfer acutely to [facility]. There he underwent cardiac catheterization indicating multivessel disease and subsequently underwent CABG and TAVR. He has been feeling significantly better after undergoing surgical procedures. Remains under activity restrictions from CT surgery for a total of 8 weeks which will be up at the beginning of April. Recently taken off of diuretics, does not report any issues with changes in leg swelling or breathing difficulties since discontinuation. Denies chest pain, SOB, palpitations, dizziness, syncope, edema, orthopnea and PND. No change in activity tolerance. Reports compliance with medications without any untoward side effects, or difficulty with affordability. PMH: Patient Active Problem List Diagnosis Gout History [...] Unstable angina (HCC) Coronary artery disease involving [place] coronary artery of [place] heart with unstable angina pectoris (HCC) Aortic valve stenosis Chest pain S/P AVR (aortic valve replacement) S/P CABG x 3 Current Outpatient Medications Medication Sig Dispense Refill Ascorbic Acid (VITAMIN C) 500 MG CAPS Take by mouth. Multiple Vitamins-Minerals (CENTRUM) Tablet Take 1 Tab by mouth daily. Atorvastatin Calcium 40 MG Oral Tablet (Lipitor) Take 1 Tablet by mouth in the morning. 90 Tablet 3 Metoprolol Succinate ER 100 MG Oral Tablet Extended Release 24 Hour (toPROL XL) Take 1 Tablet by mouth in the morning. 90 Tablet 3 Aspirin 81 MG Oral Tablet Chewable Take 1 Tablet by mouth in the morning. 30 Tablet 11 Losartan Potassium 25 MG Oral Tablet (Cozaar) Take 1 Tablet by mouth in the morning. 30 Tablet 5 Allopurinol 300 MG Oral Tablet (Zyloprim) TAKE 1 TABLET BY MOUTH ONCE DAILY 90 Tablet 1 prednisoLONE Acetate 1 % Ophthalmic Suspension (Pred Forte) Instill 1 Drop into both eyes daily. 10mL 4 No current facility-administered medications for this visit. Past Medical History: Diagnosis Date Benign neoplasm of colon 03/06/2008 adenomatous/repeat colonoscopy in 5 yrs Deviated nasal septum 01/22/2009 Dyslipidemia, goal LDL below 100 10/01/2010 Gout 05/27/2007 Hypertrophic obstructive cardiomyopathy(425.11) 09/19/2011 HYPERTROPHIC OBSTRUCTIVE CARDIOMYOPATHY(aka CARDIOMYOPATHY) 09/25/2003 Left retinal detachment 01/11/2021 macula off, [place] Other Vitamin D deficiency 01/06/2013 Past Surgical History: Procedure Laterality Date CABG, ARTERIAL, SINGLE N/A 02/16/2024 CORONARY ARTERY BYPASS GRAFT USING ARTERY 1 GRAFT performed by Bill Kang MD at [facility] CABG, ARTERY-VEIN, TWO N/A 02/16/2024 CORONARY ARTERY BYPASS GRAFT ARTERIAL AND VENOUS 2 GRAFTS performed by Bill Kang MD at [facility] COLONOSCOPY 02/2013 repeat 5 yrs COLONOSCOPY W/ LESION REMOVAL, SNARE 03/06/2008 adenomaotus, repeat in 5 years COLONOSCOPY, DIAGNOSTIC (RECTUM) 07/01/2017 adenomatous polyps, diverticulosis, repeat 5 yrs/COLONOSCOPY FLEXIBLE PROXIMAL DIAGNOSTIC performedby Sid Lee MD at ENDOSCOPY [facility] CORONARY ANGIOGRAPHY W/LEFT HEART CATH Right 02/15/2024 CORONARY ANGIOGRAPHY W/LEFT HEART CATH performed by Kateryna Herbert MD at CARDIAC LABS [facility] ENDO,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 Right 02/16/2024 ENDOSCOPY VIDEO ASSISTED HARVEST VEIN performed by Bill Kang MD at [facility] EXCLUSION LEFT ATRIAL APPENDAGE, OPEN, PERFORMED AT TIME OF OTHER SIBLEY OR THORA PROC, ANY METHOD N/A 02/16/2024 EXCLUSION OF LEFT ATRIAL APPENDAGE, OPEN, PERFORMED AT THE TIME OF OTHER STERNOTOMY OR THORACOTOMY PROCEDURE(S), ANY METHOD performed by Bill Kang MD at [facility] MISCELLANEOUS ORDER left ear TM patch MISCELLANEOUS ORDER 1993 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 per Dr Lu at [facility] DE KERATOPLASTY ENDOTHELIAL Right 12/2018 REPLACEMENT AORTIC VALVE, BYPASS WITH PROSTHETIC VALVE N/A 02/16/2024 WITH REPLACEMENT AORTIC VALVE performed by Bill Kang MD at OR [facility] VITRECTOMY/LASER COAGULATION Left 01/13/2021 VITRECTOMY MECHANICAL PARS PLANA APPROACH WITH ENDOLASER PANRETINAL performed by Dylan Ladd DO at OR [facility] Review of patient's allergies indicates: No Known Allergies Family History Problem Relation Name Age of Onset Heart Disorder Mother NH Cancer Father pancreas Other (Other) Other pt denies hx of skin cancer for parents Family Status Relation Status Mo heart failure Fa at age 67 pancreatic ca Other (Not Specified) Social History Socioeconomic History Marital status: Spouse name: Debbie Number of children: 2 Years of education: Not on file Highest education level: Not on file Occupational History Occupation: [employer] Comment: [employer] Employer: [employer] Comment: retired [employer] Tobacco Use Smoking status: Former Current packs/day: 0.00 Types: Cigarettes Start date: 03/09/1965 Quit date: 03/09/1975 Years since quittin.0 Smokeless tobacco: Never Tobacco comments: 3-4 cigarettes Vaping Use Vaping status: Never Used Substance and Sexual Activity Alcohol use: Not Currently Comment: 4-5 beers on Sat and Sun Drug use: No Sexual activity: Not on file Other Topics Concern Not on file Social History Narrative Not on file Social Needs Financial Resource Strain: Low Risk (02/22/2024) Financial Resource Strain Do you have any trouble paying for your medications, or do you think you might in the future? (Adult - for ages 18 years and over): No Does your family have trouble paying for medicine? (Household - for ages 0-17 years): Not on file Food Insecurity: No Food Insecurity (02/22/2024) Food Insecurity Do you need food for this week? (Adult - for ages 18 years and over): No Are you able to get enough food for your family? (Household - for ages 0-17 years): Not on file Does your family need food this week? (Household - for ages 0-17 years): Not on file Do you always have enough food for your family? (Household - for ages 0-17 years): Not on file Transportation Needs: No Transportation Needs (02/22/2024) Transportation Needs Do you have trouble getting a ride to medical visits or work? (Adult - for ages 18 years and over):Not on file Does your family have a hard time getting a ride to doctors visits? (Household - for ages 0-17 years): Not on file Has lack of transportation kept you from medical appointments, meetings, work, or from getting things needed for daily living? Check all that apply. (Adult - for ages 18 years and over): No Do you (or your family) have trouble finding or paying for a ride (transportation)? (Household - for ages 0-17 years): Not on file Social Connections: Socially Integrated (02/22/2024) Social Connections How often do you feel lonely or isolated from those around you? (Adult - for ages 18 years and over): Never Housing Stability: Low Risk (02/22/2024) Housing Stability Do you currently live in a retirement or have no steady place to sleep at night? (Adult - for ages 18 years and over): No Do you think you are at risk of becoming homeless? (Adult - for ages 18 years and over): Not on file Does your family worry about paying for your home or becoming homeless? (Household - for ages 0-17 years): Not on file Are you homeless or worried that you might be in the future? (Adult - for ages 18 years and over): No Are you (or your family) homeless or worried that you might be in the future? (Household - for ages0-17 years): Not on file Review of Systems Constitutional: [...] Negative for syncope and light-headedness. Objective BP 122/60 | Pulse 64 | Resp 16 | Wt 93.4 kg (206 lb) | BMI 32.02 kg/m | BSA 2.11 m Physical Exam Vitals and nursing note [...] Judgment: Judgment normal. Results ECGS: Today A Fib 68 bpm 02/17/24 NSR, 1st Deg AV Block 69 bpm QTc 428 ms 02/16/24 NSR, 1st Deg AV Block 65 bpm QTc 499 ms 02/16/24 EXTRACTION OPERATOR 80 bpm 02/13/24 Afib 57 bpm 12/25/23 A fib 63 bpm QTc 474 ms [...] SB 53bpm 1st degree AV block Echocardiogram: 02/16/24 THANH Post op The examination is adequate to evaluate the referral indication. This was a focused THANH after CABG/AVR/appendage ligation. The qualitative LV ejection fraction is 55-59% (normal). No LV segmental wall motion abnormalities. There is an aortic valve bioprosthetic present. Aortic valve prosthesis stenosis is absent. Mild intravalvular aortic regurgitation is present. The left atrial appendage has been surgically ligated. Pre op The examination is adequate to evaluate the referral indication. The qualitative LV ejection fraction is 55-59% (normal). No LV segmental wall motion abnormalities. The aortic valve is severely calcified. Severe aortic valve stenosis is present. 02/14/24 The examination is adequate to evaluate the referral indication. The qualitative LV ejection fraction is 55-59% (normal). The LV wall thickness is severely increased (concentric). The right ventricular size is qualitatively normal. Image resolution does not allow for accurate measurement. The right ventricular systolic function is qualitatively normal. Moderate aortic valve stenosis is present. Mild aortic valve regurgitation is present. 12/01/23 The examination is adequate to evaluate [...] MD notification criteria for Slow Atrial Flutter Cardiac Cath 02/15/24 Coronary disease - hemodynamically significant- MVCAD [id number] with severe calcific disease (Berger 1-1-1). There was significant dampening every time we engaged the LMCA and we were unable to pass an IVUS wire into the LAD mRCA 95% stenosis followed by distal RCA 70% stenosis Lab work reviewed Latest Reference Range & Units 02/19/24 05:00 02/20/24 04:40 02/21/24 04:39 SODIUM 135 - 146 mmol/L 137 135 135 POTASSIUM 3.5 - 5.1 mmol/L 4.7 4.3 4.1 CHLORIDE 98 - 107 mmol/L 101 98 98 CO2 22 - 32 mmol/L 25 25 25 BUN 6 - 20 mg/dL 27 (H) 33 (H) 33 (H) CREATININE 0.6 - 1.2 mg/dL 1.0 1.0 0.8 EGFR >=60 mL/min 79 85 >90 ANION GAP 7 - 15 mmol/L 11 12 12 GLUCOSE 70 - 120 mg/dL 118 107 106 CALCIUM 8.4 - 10.2 mg/dL 9.5 9.5 9.2 Magnesium 1.5 - 2.6 mg/dL 2.5 2.6 2.6 CBC Rpt ! Rpt ! Rpt ! WBC 4.00 - 10.80 K/uL 15.98 (H) 15.61 (H) 13.95 (H) RBC 4.50 - 5.25 M/uL 3.40 3.24 3.22 HGB 14.0 - 16.8 g/dL 9.3 (L) 8.8 (L) 8.7 (L) HCT 40.0 - 48.4 % 29.8 (L) 28.6 (L) 28.4 (L) MCV 82.0 - 99.5 fL 87.6 88.3 88.2 MCH 27.0 - 34.0 pg 27.4 27.2 27.0 MCHC 32.0 - 36.0 g/dL 31.2 30.8 30.6 RDW 11.5 - 15.5 % 16.8 16.4 16.1 PLT 140 - 400 K/uL 130 (L) 168 192 MPV 6.6 - 11.1 fL 11.7 12.2 11.3 CBC WITH WBC DIFFERENTIAL Rpt ! Rpt ! Rpt ! Absolute Neutrophils 1.80 - 7.70 K/uL 11.61 (H) 10.97 (H) 9.67 (H) Absolute Lymphocytes 1.00 - 4.80 K/ul 1.88 1.91 1.66 Absolute Monocytes 0.00 - 1.10 K/uL 2.12 (H) 2.24 (H) 2.01 (H) Absolute Eosinophils 0.00 - 0.70 K/uL 0.06 0.11 0.16 Absolute Basophils 0.00 - 0.20 K/uL 0.04 0.06 0.04 [facility] Reference Range & Units 02/24/24 15:35 03/01/24 09:33 03/08/24 08:11 03/16/24 07:55 Fingerstick INR INR 2.9 2.0 1.8 2.5 Impression CAD s/p CABG MITCHELL to LAD, SVG to OM, PDA 02/16/24 Severe s/p AVR 25mm magna ease 02/16/24 S/p RICHIE Clip 02/16/24 Atrial flutter on metoprolol and coumadin [id number] (age, HTN), s/p CTI ablation 05/06/23 HTN HLD HCM Vitamin D deficiency Plan: -HR and BP well controlled -ECG completed today remains in rate controlled A Fib/Flutter he is in atrial fibrillation -evaluated by CT surgery earlier this week indicating a be reasonable to stop warfarin, for now given the persistent atrial dysrhythmia we will have him continue apixaban -recommend holding warfarin for the weekend with repeat INR on Thursday, I have sent a staff message to warfarin Clinic to help with transitioned back to apixaban -has undergone RICHIE clip recently so could consider discontinuation in the future -will plan for referral to cardiac rehab once his activity restrictions or up at the beginning of April -plan for repeat echo prior to next appt given recent AVR -continue ASA, metoprolol, atorvastatin, and losartan -Educated patient on caution [...] notes for further recommendations. DISPOSITION: Follow up 3 months or if symptoms worsen/fail to improve. All questions were answered to the patients satisfaction. Patient advised to report to ED with any and all emergencies. The patient agrees to the above plan and will call with additional questions or concerns. [facility], [address] [place] [address] This chart was completed in part utilizing [employer] Speech Voice Recognition Software. Grammatical errors, random word insertions, pronoun errors, and incomplete sentences are an occasional consequence of this system due to software limitations, ambient noise, and hardware issues. Any formal questions or concerns about the content, text, or information contained within the body of this dictation should be directly addressed to the provider for clarification. Cosigned by Henny Ku DO at 04/13/2024 5:48 PM EST documented in this encounter Nursing Notes * Jyoti Mcmillan LPN - 03/25/2024 9:22 AM EST Examination Room: 16 Name: Alexis Garcia Date of : 1950 Reason for Visit: Follow up Problems/Concerns: Recent CABGx3, L atrial appendage, A/V replacement on 02/21/24 Interim Hosp(s): Denies since surgery Chest Pain/SOB: denies MyChart Discussed: ALREADY ACTIVE Patient was instructed [...] Description 05/06/2024 8:20 AM EST Office Visit [facility] [address] [facility] [place] [id number] Rashawn Obrien MD [address] [place] [place] [address] 06/17/2024 7:15 AM EDT Cardiac Studies Cardiac Studies, [facility] [address] [facility] [place] [address] 06/23/2024 7:15 AM EDT Cardiac Studies Cardiac Studies, [facility] [address] [facility] [place] [address] 07/05/2024 8:00 AM EDT Office Visit Cardiology, [facility] [address] [facility] [place] [address] Idalmis Mccrary CRNP [address] [place] [address] Scheduled Orders Name Type Priority Associated Diagnoses Orde r Schedule ECHO, COMPLETE (2D), TRANS-THORACIC Echocardiology Routine Paroxysmal atrial fibrillation (HCC) Aortic valve stenosis, etiology of cardiac valve disease unspecified Hypertrophic cardiomyopathy (HCC) HTN, goal below 130/80 Hx of CABG S/P TAVR (transcatheter aortic valve replacement) Expected: 06/23/2024 (Approximate), Expires: 04/25/2026 Scheduled Procedures Name Priority Associated Diagnoses Date/Ti me COLONOSCOPY FLEXIBLE PROXIMAL DIAGNOSTIC Recall History of colon polyps Scheduled Referrals Name Type Priority Associated Diagnoses Orde r Schedule CARDIAC REHAB REFERRAL OP Referral Within 10 days (routine) Hx of CABG S/P TAVR (transcatheter aortic valve replacement) Ordered: 03/31/2024 Health Maintenance Due Date Last Done Comments [...] this encounter Medical Devices Implanted Type Area Interventional Physician Device Identifier Shelf Expiration Date Model / Serial / Lot Suture Steel 6 [id number] - [id number] Implanted:Qty: 7 on 02/16/2024 by Bill Kang MD at OR [facility] N/A: Sternum JNJ : [employer] 11/06/2028 M654G / / [id number] Clip Atrial Penditure 45mm - [id number] Implanted:Qty: 1 on 02/16/2024 by Bill Kang MD at OR [facility] N/A: Heart [employer] : CRM [id number] 05/27/2024 RICHIE C45 / / [id number] Valve Pericardial 25mm - [id number] - [id number] Implanted:Qty: 1 on 02/16/2024 by Bill Kang MD at OR [facility] N/A: Heart [employer] SOL[employer] [id number] 07/05/2027 [id number] / [id number] / [id number] Marker Coronary - [id number] Implanted:Qty: 2 on 02/16/2024 by Bill Kang MD at OR [facility] N/A: Aorta [employer] 12/06/2026 [facility] / / [id number] documented as of this encounter Results * EKG (03/25/2024 10:01 AM EST) 03/25/2024 10:0 1 AM EST Narrative Procedure Note Semaj Morataya DO - 03/25/2024 10:01 AM EST REASON FOR STUDY: s/p TAVR;s/p TAVR CONCLUSIONS: Atrial fibrillation ST & Marked T wave abnormality, consider anterolateral ischemia Prolonged QT interval or tu fusion, consider myocardial disease,electrolyte imbalance, or drug effects Abnormal ECG When compared with ECG of 17-Feb-2024 04:46, No significant change was found Ventricular Rate: 68 Atrial Rate: 326 QRS Duration: 76 QT/QTc: 462/491 ms P-R-T [place]: 0 : 71 : 233 degrees Idalmis CARUSO EKG F inal Result [facility] documented in this encounter Visit Diagnoses Diagnosis Paroxysmal atrial fibrillation (HCC)- Primary Atrial fibrillation Aortic valve stenosis, etiology of cardiac valve disease unspecified Hypertrophic cardiomyopathy (HCC) Other hypertrophic cardiomyopathy HTN, goal below 130/80 Unspecified essential hypertension Hx of CABG Postsurgical aortocoronary bypass status S/P TAVR (transcatheter aortic valve replacement) Heart valve replaced by other means Paroxysmal atrial fibrillation (HCC) Atrial fibrillation Aortic valve stenosis, etiology of cardiac valve disease unspecified Hypertrophic cardiomyopathy (HCC) Other hypertrophic cardiomyopathy HTN, goal below 130/80 Unspecified essential hypertension Hx of CABG Postsurgical aortocoronary bypass status S/P TAVR (transcatheter aortic valve replacement) Heart valve replaced by other means documented in this encounter Advance Directives * [...] Advance Directives occurred with: Patient Care Teams Insurance Coder Relationship Specialty Start Date End Date Rashawn Obrien MD [address] [facility] [place] [address] PCP - General Family Medicine 03/16/24 documented as of this encounter"
--- OUTSIDE RECORDS SUMMARY | 2024-05-23 05:38 | External Medical Summary | Summary of Care ---
Author Name Unknown Organization [facility] Address [address] [place] [address] Phone [phone] Care Team Providers Care Pepper Picker Name Role Phone Rashawn Obrien MD Primary Care Provider [phone] Encounter Details Date Type Department Care Team (Late st Contact Info) Description 03/21/2024 10:30 AM EST Scheduled Telephone Care Coordination and Integration [address], [place] [phone] Saritha Monroy, Community Health Foreign Language Instructor [address], [place] [phone] Allergies No known active allergiesdocumented as of this encounter (statuses as of 03/21/2024) Medications Ascorbic Acid (VITAMIN C) 500 MG CAPS Take by mouth. Activ e Multiple Vitamins-Minerals (CENTRUM) Tablet Take 1 Tab by mouth daily. Active prednisoLONE Acetate 1 % Ophthalmic Suspension (Pred Forte) Instill 1 Drop into both eyes daily. 10 mL 4 03/12/19 22 Active Atorvastatin Calcium 40 MG Oral Tablet (Lipitor)Indicati ons:Dyslipidemia, goal to be determined Take 1 Tablet by mouth in the morning. 90 Tablet 3 04/29/19 24 Active Metoprolol Succinate ER 100 MG Oral Tablet Extended Release 24 Hour (toPROL XL)Indications:Hy pertrophic cardiomyopathy (HCC),Essential hypertension with goal blood pressure less than 130/80 Take 1 Tablet by mouth in the morning. 90 Tablet 3 12/11/19 24 Active Aspirin 81 MG Oral Tablet Chewable Take 1 Tablet by mouth in the morning. 30 Tablet 11 02/21/20 24 Active oxyCODONE HCl 5 MG Oral Tablet (Oxy IR) Take 1 Tablet by mouth every 4 hours as needed for Pain, Severe. 10 Tablet 02/21/20 24 Active Warfarin Sodium 5 MG Oral Tablet (Coumadin) Take once every evening as instructed by the anticoagulation clinic. 30 Tablet 3 02/21/20 24 Active Losartan Potassium 25 MG Oral Tablet (Cozaar) Take 1 Tablet by mouth in the morning. 30 Tablet 5 02/21/20 24 Active Furosemide 40 MG Oral Tablet (Lasix) Take 1 Tablet by mouth in the morning. Take for 30 days, then stop.. Do not start before February 22, 2024. 30 Tablet 02/22/20 24 Active Docusate Sodium 100 MG Oral Capsule (Colace) Take 1 Capsule by mouth 2 times a day as needed for Constipation. 20 Capsule 02/21/20 24 Active Potassium Chloride ER 10 MEQ Oral Tablet Extended Release Take 2 Tablets by mouth in the morning. Take for 30 days, then stop.. 60 Tablet 02/21/20 24 Active Famotidine 20 MG Oral Tablet (Pepcid) Take 1 Tablet by mouth in the morning. Take for 30 days, then stop.. 30 Tablet 02/22/20 24 Active Allopurinol 300 MG Oral Tablet (Zyloprim)Indicat ions:Gouty arthropathy TAKE 1 TABLET BY MOUTH ONCE DAILY 90 Tablet 1 03/21/19 25 Active documented as of this encounter (statuses as of 03/21/2024) Active Problems Problem Noted Date Diagnosed Date S/P AVR (aortic valve replacement) 02/17/2024 S/P CABG x 3 02/17/2024 Coronary artery disease invo lving [place] coronary artery of [place] heart with unstable angina pectoris 02/15/2024 Aortic [...] as of this encounter (statuses as of 03/21/2024) Resolved Problems Problem Noted Date Diagnosed Date [...] as of this encounter (statuses as of 03/21/2024) Immunizations Name Administration Dates Next Due COVID-19 [...] Industry Job Start Date Job End Date [place] Not on file Not on file Not [...] documented in this encounter Progress Notes * Saritha Monroy, Community Health Foreign Language Instructor - 03/21/2024 11:54 AM EST Telemedicine visit: No Community Health Foreign Language Instructor (RICHARDSON) documentation: Patient returned this CHW's PC from earlier Patient is doing well and has no concerns or questions. His incision is all healed up and no shortness of breath or chest pain. He goes to his doctors appointment this Thursday. Patient appreciated this CHW for calling him. Saritha Monroy- Community Health Worker 1 Support Services/[facility] documented in this encounter Plan of Treatment Upcoming Encounters Date Type Department Care Team (Late st Contact Info) Description 03/23/2024 2:15 PM EST Office Visit Cardiothoracic [facility]urg [facility] [address] [place] [address] Bill Kang MD [address] [place] [address] 03/25/2024 10:00 AM EST Office Visit Cardiology, [facility] 132 [facility] [place] [address] Idalmis Mccrary CRNP [address] [facility] [place] [address] 03/28/2024 7:50 AM EST Anticoagulation Pharmacy, Cristela Lizarraga [address] [place] [phone] Cristela [facility] [address] [place] [address] 05/06/2024 8:20 AM EST Office Visit Family Practice, [facility] [place] [phone] Rashawn Obrien MD 226 [facility] [place] [address] 06/17/2024 7:15 AM EDT Cardiac Studies Cardiac Studies, [facility] 132 [facility] [place] [address] 07/05/2024 8:00 AM EDT Office Visit Cardiology, [facility] 132 [facility] [place] [address] Idalmis Mccrary CRNP 400 [facility] [place] [address] Scheduled Procedures Name Priority Associated Diagnoses Date/Ti [...] this encounter Medical Devices Implanted Type Area Terminal Gauger Supervisor Device Identifier Shelf Expiration Date Model / Serial / Lot Suture Steel 6 B&S19 M654g - [id number] Implanted:Qty: 7 on 02/16/2024 by Bill Kang MD at OR [facility] [place] N/A: Sternum JNJ : [employer] 11/06/2028 M654G / / 103BLE Clip Atrial Penditure 45mm - [id number] Implanted:Qty: 1 on 02/16/2024 by Bill Kang MD at OR [facility] [place] N/A: Heart [employer] : CRM [id number] 05/27/2024 RICHIE C45 / / [id number] Valve Pericardial 25mm - [id number] - [id number] Implanted:Qty: 1 on 02/16/2024 by Bill Kang MD at OR [facility] [place] N/A: Heart [employer] SOLIS [id number] 07/05/2027 [id number] / [id number] / [id number] Marker Coronary - [id number] Implanted:Qty: 2 on 02/16/2024 by Bill Kang MD at OR [facility] [place] N/A: Aorta [employer] 12/06/2026 [facility] / / [id number] documented as of this encounter Advance Directives [...] Advance Directives occurred with: Patient Care Teams Pepper Picker Relationship Specialty Start Date End Date Rashawn Obrien MD 132 [facility] [place] [address] PCP - General Family Medicine 03/16/24 documented as of this encounter
--- OUTSIDE RECORDS SUMMARY | 2024-05-23 05:38 | External Medical Summary | Summary of Care ---
Author Name Unknown Organization [facility] Address [address] [place] [address] Phone [phone] Care Team Providers Care Main Galley Scullion Name Role Phone Mariajose Obrien MD Primary Care Provider Reason for Visit * Reason Comments eRx-Medication Refill Encounter Details Date Type Department Care Team (Late st Contact Info) Description 03/21/2024 Refill [facility] [address] [place] [address] Mariajose Obrien MD [address] [place], [place] [phone] Gouty arthropathy Allergies No known active allergiesdocumented as of this encounter (statuses as of 03/21/2024) Medications Ascorbic Acid (VITAMIN C) 500 MG CAPS Take by mouth. Activ e Multiple Vitamins-Mineral s (CENTRUM) Tablet Take 1 Tab by mouth daily. Active prednisoLONE Acetate 1 % Ophthalmic Suspension (Pred Forte) Instill 1 Drop into both eyes daily. 10 mL 4 022 Active Atorvastatin Calcium 40 MG Oral Tablet (Lipitor)Indicat ions:Dyslipidemi a, goal to be determined Take 1 Tablet by mouth in the morning. 90 Tablet 3 024 Active Metoprolol Succinate ER 100 MG Oral Tablet Extended Release 24 Hour (toPROL XL)Indications:H ypertrophic cardiomyopathy (HCC),Essential hypertension with goal blood pressure less than 130/80 Take 1 Tablet by mouth in the morning. 90 Tablet 3 024 Active Aspirin 81 MG Oral Tablet Chewable Take 1 Tablet by mouth in the morning. 30 Tablet 11 024 Active oxyCODONE HCl 5 MG Oral Tablet (Oxy IR) Take 1 Tablet by mouth every 4 hours as needed for Pain, Severe. 10 Tablet 024 Active Warfarin Sodium 5 MG Oral Tablet (Coumadin) Take once every evening as instructed by the anticoagulation clinic. 30 Tablet 3 024 Active Losartan Potassium 25 MG Oral Tablet (Cozaar) Take 1 Tablet by mouth in the morning. 30 Tablet 5 024 Active Furosemide 40 MG Oral Tablet (Lasix) Take 1 Tablet by mouth in the morning. Take for 30 days, then stop.. Do not start before February 22, 2024. 30 Tablet 024 Active Docusate Sodium 100 MG Oral Capsule (Colace) Take 1 Capsule by mouth 2 times a day as needed for Constipation. 20 Capsule 024 Active Potassium Chloride ER 10 MEQ Oral Tablet Extended Release Take 2 Tablets by mouth in the morning. Take for 30 days, then stop.. 60 Tablet 024 Active Famotidine 20 MG Oral Tablet (Pepcid) Take 1 Tablet by mouth in the morning. Take for 30 days, then stop.. 30 Tablet 024 Active Allopurinol 300 MG Oral Tablet (Zyloprim)Indica tions:Gouty arthropathy TAKE 1 TABLET BY MOUTH ONCE DAILY 90 Tablet 1 025 Active Allopurinol 300 MG Oral Tablet (Zyloprim)Indica tions:Gouty arthropathy TAKE 1 TABLET BY MOUTH ONCE DAILY 90 Tablet 2 024 2024 Discontinued documented as of this encounter (statuses as of 03/21/2024) Active Problems Problem Noted Date Diagnosed Date S/P AVR (aortic valve replacement) 02/17/2024 S/P CABG x 3 02/17/2024 Coronary artery disease invo lving tribal coronary artery of tribal heart with unstable angina pectoris 02/15/2024 Aortic [...] No 02/22/2024 Does the household have a [place] [facility] [place] source of income? (Household - for [...] Industry Job Start Date Job End Date [place] Not on file Not on file Not [...] encounter Miscellaneous Notes * Telephone Encounter - Adia Swanson RPh - 03/21/2024 6:12 AM ESTSigned Prescriptions: Disp Refills Allopurinol 300 MG Oral Tablet (Zyloprim) 90 Tab*1 Sig: TAKE 1 TABLET BY MOUTH ONCE DAILYAuthorizing Provider: MARIAJOSE OBRIEN User: ADIA SWANSON documented in this encounter Plan of Treatment Upcoming Encounters Date Type Department Care Team (Late st Contact Info) Description 03/23/2024 2:15 PM EST Office Visit Cardiothoracic Surg [facility] [address] [place] [address] Bill Kang MD [address] [place] [address] 03/25/2024 10:00 AM EST Office Visit Cardiology, [facility] 132 [facility] [place] [address] Idalmis Mccrary CRNP [address] [place] [address] 03/28/2024 7:50 AM EST Anticoagulation Pharmacy, [place] [address] [phone] [place] [address] 05/06/2024 8:20 AM EST Office Visit Family Practice, [address] [place] [phone] Mariajose Obrien MD [address] [place] [address] 06/17/2024 7:15 AM EDT Cardiac Studies Cardiac Studies, [facility] 132 [facility] [place] [address] 07/05/2024 8:00 AM EDT Office Visit Cardiology, [facility] 132 [facility] [place] [address] Idalmis Mccrary CRNP [address] [place] [address] Scheduled Procedures Name Priority Associated Diagnoses Date/Ti me COLONOSCOPY FLEXIBLE PROXIMAL DIAGNOSTIC Recall History of colon polyps Health Maintenance Due Date Last Done Comments Cologuard 01/09/1996 Fecal Occult Blood Test 01/09/1996 Sigmoidoscopy 01/09/1996 Zoster Vaccines (2 of 3) 07/14/2012 05/19/2012 Colonoscopy 07/01/2022 07/01/2017, 06/08, 02/11/2013, Additional history exists Colorectal Cancer Screening 07/01/2022 COVID-19 Vaccine (3 - season) 2023 05/17/2020, [...] this encounter Medical Devices Implanted Type Area Naval Aircrewman Avionics Device Identifier Shelf Expiration Date Model / Serial / Lot Suture Steel 6 B&S19 M654g - [id number] Implanted:Qty: 7 on 02/16/2024 by Bill Kang MD at OR [facility] N/A: Sternum JNJ : [employer] 11/06/2028 M654G / / 103BLE Clip Atrial Penditure 45mm - [id number] Implanted:Qty: 1 on 02/16/2024 by Bill Kang MD at OR [facility] N/A: Heart [employer] : CRM [id number] 05/27/2024 RICHIE C45 / / [id number] Valve Pericardial 25mm - [id number] - [id number] Implanted:Qty: 1 on 02/16/2024 by Bill Kang MD at OR [facility] N/A: Heart [employer] [id number] 07/05/2027 [id number] MM / [id number] / [id number] Marker Coronary - [id number] Implanted:Qty: 2 on 02/16/2024 by Bill Kang MD at OR [facility] N/A: Aorta [employer] 12/06/2026 [facility] / / [id number] documented as of this encounter Visit Diagnoses Diagnosis Gouty arthropathy Gouty arthropathy, unspecified documented in this encounter Advance Directives * [...] Advance Directives occurred with: Patient Care Teams Main Galley Scullion Relationship Specialty Start Date End Date Mariajose Obrien MD 132 [facility] [place] [address] PCP - General Family Medicine 03/16/24 documented as of this encounter
--- OUTSIDE RECORDS SUMMARY | 2024-05-23 05:38 | External Medical Summary | Summary of Care ---
Author Name Unknown Organization [facility] Address [address] [place] [address] Phone [phone] Care Team Providers Care Assistant Cross Country Coach Name Role Phone Rashawn Obrien MD Primary Care Provider [phone] Reason for Visit * Reason Comments Dosage Adjustment In Person (Anticoag Cl inic) Encounter Details Date Type Department Care Team (Latest Contact Info) Description 03/01/2024 9:20 AM EST Anticoagulation Pharmacy, [facility] [address] [place] [phone] [facility] [address] [place] [address] Anticoagulation management encounter*; Paroxysmal atrial fibrillation (HCC); S/P AVR (aortic valve replacement); S/P CABG x 3 Allergies No known active allergiesdocumented as of this encounter (statuses as of 03/01/2024) Medications Ascorbic Acid (VITAMIN C) 500 MG [...] DAILY 90 Tablet 2 06/30/19 24 Active Metoprolol Succinate ER 100 MG [...] then stop.. 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 Not [...] in this encounter Progress Notes * Rhoda Alexander, formerly [facility] - 03/01/2024 9:30 AM EST Medication Therapy Disease Management - Anticoagulation Patient: Alexis Garcia | : 1950 Subjective Patient-Reported Symptoms: Patient Findings Negatives: Signs/symptoms of thrombosis, Signs/symptoms of bleeding, Change in health, Change in alcohol use, Change in activity, Upcoming invasive procedure, Missed doses, Extra doses, Change in medications, Change in diet/appetite, Bruising Objective Current Warfarin Dose As of 03/01/2024 Warfarin maintenance plan: No maintenance plan INR Result As of 03/01/2024 INR goal: 2.0-3.0 INR used for dosin.0 (03/01/2024) Assessment & Plan Warfarin Plan As of 03/01/2024 Full warfarin instructions: 2.5 mg every Mon, Wed, Fri; 5 mg all other days Next INR check: 03/08/2024 Repeat PT/INR in 1 week(s) Weekly dose: started today Additional Dosing Information: Description Pt just recently transitioned to Eliquis on 01/22/24 (Previous warfarin dose: 2.5 mg every Thu, Sat; 5 mg all other days.). Warfarin for 1 month, then return to eliquis I spent a total of 10-19 minutes (exact time 10 mins) on the date of service in preparation, delivery, and documentation of the care provided to Alexis Garcia excluding any time spent in the performance of separately billed services or time spent by another provider/QHP. Rhoda Alexander formerly [facility] Clinical Pharmacist 03/01/2024, 9:30 AM documented in this encounter Plan of Treatment Upcoming Encounters Date Type Department Care Team (Late st Contact Info) Description 03/08/2024 8:10 AM EST Anticoagulation Pharmacy, [address] [place] [phone] [facility] [address] [place] [address] 03/23/2024 2:15 PM EST Office Visit Cardiothoracic Surg [facility] [address] [place] [address] Bill Kang MD [address] [place] [address] 03/25/2024 10:00 AM EST Office Visit Cardiology, [address] [place] [address] dIalmis Mccrary CRNP [address] [place] [address] 05/06/2024 8:20 AM EST Office Visit Family Practice, [facility] 226 [place] [phone] Rashawn Obrien MD 226 [place] [address] 06/17/2024 7:15 AM EDT Cardiac Studies Cardiac Studies, [facility] [address] [address] 07/05/2024 8:00 AM EDT Office Visit Cardiology, [facility] [address] [place] [address] Idalmis Mccrary CRNP [address] [place] [address] Scheduled Procedures Name Priority Associated Diagnoses Date/Ti [...] this encounter Medical Devices Implanted Type Area Torsion Spring Coiling Machine Setter Device Identifier Shelf Expiration Date Model / Serial / Lot Suture Steel 6 B&S19 M654g - [id number] Implanted:Qty: 7 on 02/16/2024 by Bill Kang MD at OR [facility] N/A: Sternum JNJ : [employer] 11/06/2028 M654G / / 103BLE Clip Atrial Penditure 45mm - [id number] Implanted:Qty: 1 on 02/16/2024 by Bill Knag MD at OR [facility] N/A: Heart [employer] : CRM [id number] 05/27/2024 RICHIE C45 / / [id number] Valve Pericardial 25mm - [id number] - [id number] Implanted:Qty: 1 on 02/16/2024 by Bill Kang MD at OR [facility] N/A: Heart [employer] [id number] 07/05/2027 [id number] MM / [id number] / [id number] Marker Coronary - [id number] Implanted:Qty: 2 on 02/16/2024 by Bill Kang MD at OR [facility] N/A: Aorta [employer] 12/06/2026 [facility] / / [id number] documented as of this encounter Procedures Procedure Name Priority Date/Time Associated Diagnosis Comments INR FINGERSTICK, POINT OF CARE STAT 03/01/2024 9:33 AM EST Paroxysmal atrial fibrillation (HCC) S/P AVR (aortic valve replacement) S/P CABG x 3 Anticoagulation management encounter documented in this encounter Results * INR FINGERSTICK, POINT OF CARE (03/01/2024 9:33 AM EST) Fingerstick INR 2.0 INR 9:34 AM EST [facility] Blood 03/01/2024 9:33 AM EST 03/01/2024 9:34 AM EST Narrative [facility]- - 03/01/2024 9:34 AM EST Therapeutic ranges for non-operative patients: Prophylaxsis/treatment of DVT: (Range:2.0-3.0) Treatment of pulmonary embolism:(Range:2.0-3.0) Prevention of systemic embolism from: -tissue heart valves -acute myocardial infarction -valvular heart disease -atrial fibrillation (Range: 2.0-3.0) Mechanical prosthetic valves: (Range: 2.5-3.5) Rhoda Alexander formerly [facility] LAB POINT OF CARE TEST DOCKED DEVICE UNSOLICITED RESULTS Final Result [facility] [address] [place] [address], [facility] documented in this encounter Visit Diagnoses [...] Advance Directives occurred with: Patient Care Teams Assistant Cross Country Coach Relationship Specialty Start Date End Date Rashawn Obrien MD PCP - General 05/26/07 documented as of this encounter"
--- OUTSIDE RECORDS SUMMARY | 2024-05-23 05:38 | External Medical Summary | Summary of Care ---
Author Name Unknown Organization [facility] Address [address] [place] [address] Phone [phone] Care Team Providers Care Harmonic Analyst Name Role Phone Rashawn Obrien MD Primary Care Provider Encounter Details Date Type Department Care Team (Late st Contact Info) Description 03/21/2024 10:30 AM EST Scheduled Telephone Care Coordination and Integration [address] [place], [place] [phone] Saritha Monroy, Community Health Stage Setting Painter Apprentice [address] [place], [place] [phone] Allergies No known active allergiesdocumented as of [...] 3 02/17/2024 Coronary artery disease invo lving [place] coronary artery of platinum heart with unstable angina pectoris 02/15/2024 Aortic [...] Industry Job Start Date Job End Date [employer] Not on file Not on file Not [...] Progress Notes * Saritha Monroy, Community Health Stage Setting Painter Apprentice - 03/21/2024 11:54 AM EST Telemedicine visit: No Community Health Stage Setting Painter Apprentice (RICHARDSON) documentation: Patient returned this CHW's PC from earlier Patient is doing well and has no concerns or questions. His incision is all healed up and no shortness of breath or chest pain. He goes to his doctors appointment this Thursday. Patient appreciated this CHW for calling him. Saritha Monroy- Community Health Worker 1 Support Services/[facility] [email or web address] Electronically signed by Saritha Monroy, Community Health Stage Setting Painter Apprentice at 03/21/2024 11:56 AM EST documented in this encounter Plan of Treatment Upcoming Encounters Date Type Department Care Team (Late st Contact Info) Description 03/23/2024 2:15 PM EST Office Visit Cardiothoracic Surg [facility] [address] [place] [address] Bill Kang MD [address] [place] [address] 03/25/2024 10:00 AM EST Office Visit Cardiology, [facility] 132 [facility] [place] [address] Idalmis Mccrary CRNP 400 [facility] [place] [address] 03/28/2024 7:50 AM EST Anticoagulation Pharmacy, [facility] [address] [facility] [place] [phone] Crist[facility] [address] [facility] [place] [address] 05/06/2024 8:20 AM EST Office Visit Family Practice, [facility] [place] [phone] Rashawn Obrien MD 226 [facility] [place] [address] 06/17/2024 7:15 AM EDT Cardiac Studies Cardiac Studies, [facility] 132 [facility] [place] [address] 07/05/2024 8:00 AM EDT Office Visit Cardiology, [facility] 132 [facility] [place] [address] Idalmis Mccrary CRNP 400 [facility] [place] [address] Scheduled Procedures Name Priority Associated Diagnoses Date/Ti [...] this encounter Medical Devices Implanted Type Area Kiln Car Unloader Device Identifier Shelf Expiration Date Model / Serial / Lot Suture Steel 6 B&S19 M654g - [id number] Implanted:Qty: 7 on 02/16/2024 by Bill Kang MD [place] [facility] [place]A: Sternum JNJ : [employer] 11/06/2028 M654G / / 103BLE Clip Atrial Penditure 45mm - [id number] Implanted:Qty: 1 on 02/16/2024 by Bill Kang MD [place] [facility] [place]/A: Heart [employer] : CRM [id number] 05/27/2024 RICHIE C45 / / [id number] Valve Pericardial 25mm - [id number] - [id number] Implanted:Qty: 1 on 02/16/2024 by Bill Kang MD [place] [facility] [place]/A: Heart [employer] [id number] 07/05/2027 [id number] MM / [id number] / [id number] Marker Coronary - [id number] Implanted:Qty: 2 on 02/16/2024 by Bill Kang MD [place] [facility] N/A: Aorta [employer] 12/06/2026 [facility] / / [id number] documented as of this encounter Advance Directives [...] Advance Directives occurred with: Patient Care Teams Harmonic Analyst Relationship Specialty Start Date End Date Rashawn Obrien MD 132 [facility] [place] [address] PCP - General Family Medicine 03/16/24 documented as of this encounter
--- OUTSIDE RECORDS SUMMARY | 2024-05-23 05:38 | External Medical Summary | Summary of Care ---
Author Name Unknown Organization [facility] Address [address] [place] [address] Phone [phone] Care Team Providers Care Club Attendant Name Role Phone Rashawn Obrien MD Primary Care Provider [phone] Reason for Visit * Reason Comments Dosage Adjustment In Person (Anticoag Cl inic) Encounter Details Date Type Department Care Team (Latest Contact Info) Description 03/08/2024 8:10 AM EST Anticoagulation Pharmacy, [facility] [address] [place] [phone] [place] [facility] [address] [place] [address] Anticoagulation management encounter*; Paroxysmal atrial fibrillation (HCC); S/P AVR (aortic valve replacement); S/P CABG x 3 Allergies No known active allergiesdocumented as of this encounter (statuses as of 03/08/2024) Medications Ascorbic Acid (VITAMIN C) 500 MG [...] as of this encounter (statuses as of 03/08/2024) Active Problems Problem Noted Date Diagnosed Date S/P AVR (aortic valve replacement) 02/17/2024 S/P CABG x 3 02/17/2024 Coronary artery disease invo lving [place] coronary artery of [place] heart with unstable angina pectoris 02/15/2024 Aortic [...] as of this encounter (statuses as of 03/08/2024) Resolved Problems Problem Noted Date Diagnosed Date [...] as of this encounter (statuses as of 03/08/2024) Immunizations Name Administration Dates Next Due COVID-19 [...] 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 Not on file Not [...] this encounter Progress Notes * Rhoda Alexander, [facility] - 03/08/2024 8:05 AM EST Images from the original note [...] Bruising Objective Current Warfarin Dose As of 03/08/2024 Warfarin maintenance plan: 2.5 mg (5 mg x 0.5) every Mon, Wed, Fri; 5 mg (5 mg x 1) all other days INR Result As of 03/08/2024 INR goal: 2.0-3.0 INR used for dosin.8 (03/08/2024) Assessment & Plan Warfarin Plan As of 03/08/2024 Full warfarin instructions: 03/08: 7.5 mg; Otherwise 2.5 mg every Mon, Fri; 5 mg all other days Next INR check: 03/16/2024 Repeat PT/INR in 1 week(s) Weekly dose: increased Additional Dosing Information: Description Pt just recently transitioned to Eliquis on 01/22/24 (Previous warfarin dose: 2.5 mg every Thu, Sat; 5 mg all other days.). Warfarin for 1 month, then return to [facility]; cardio appts 03/23 and 03/25-- will await confirmation from these providers to ensure still appropriate to change back to DOAC I spent a total of 10-19 minutes (exact time 10 mins) on the date of service in preparation, delivery, and documentation of the care provided to Alexis Garcia excluding any time spent in the performance of separately billed services or time spent by another provider/QHP. Rhoda Alexander [facility] Clinical Pharmacist 03/08/2024, 8:05 AM documented in this encounter Plan of Treatment Upcoming Encounters Date Type Department Care Team (Late st Contact Info) Description 03/16/2024 7:50 AM EST Anticoagulation Pharmacy, [facility] [address] [place] [phone] [place] [facility] [address] [place] [address] 03/23/2024 2:15 PM EST Office Visit Cardiothoracic Surg [facility] [address] [place] [address] Bill Kang MD [address] [place] [address] 03/25/2024 10:00 AM EST Office Visit Cardiology, [facility] [address] [facility] [place] [address] Idalmis Mccrary CRNP [address] [facility] [place] [phone] 05/06/2024 8:20 AM EST Office Visit Family [facility] [address] [place] [phone] Rashawn Obrien MD [address] [place] [address] 06/17/2024 7:15 AM EDT Cardiac Studies Cardiac Studies, [facility] 132 [facility] [place] [address] 07/05/2024 8:00 AM EDT Office Visit Cardiology, [facility] [address] [facility] [place] [address] Idalmis Mccrary CRNP 400 [facility] [place] [address] Scheduled Procedures Name Priority [...] this encounter Medical Devices Implanted Type Area Harp Maker Device Identifier Shelf Expiration Date Model / Serial / Lot Suture Steel 6 B&S19 M654g - [id number] Implanted:Qty: 7 on 02/16/2024 by Bill Kang MD at [place] [facility] N/A: Sternum JNJ : [employer] 11/06/2028 M654G / / 103BLE Clip Atrial Penditure 45mm - [id number] Implanted:Qty: 1 on 02/16/2024 by Bill Kang MD at OR [facility] N/A: Heart [employer] : CRM [id number] 05/27/2024 RICHIE C45 / / [id number] Valve Pericardial 25mm - [id number] - [id number] Implanted:Qty: 1 on 02/16/2024 by Bill Kang MD at OR [facility] N/A: Heart [employer] SOLIS [id number] 07/05/2027 [id number] / [id number] / [id number] Marker Coronary - [id number] Implanted:Qty: 2 on 02/16/2024 by Bill Kang MD at OR [facility] N/A: Aorta [employer] 12/06/2026 AM-SD / / [id number] documented as of this encounter Procedures Procedure Name Priority Date/Time Associated Diagnosis Comments INR FINGERSTICK, POINT OF CARE STAT 03/08/2024 8:11 AM EST Paroxysmal atrial fibrillation (HCC) S/P AVR (aortic valve replacement) S/P CABG x 3 Anticoagulation management encounter documented in this encounter Results * INR FINGERSTICK, POINT OF CARE (03/08/2024 8:11 AM EST) Fingerstick INR 1.8 INR 8:22 AM EST [facility]-01 Blood 03/08/2024 8:11 AM EST 03/08/2024 8:22 AM EST Narrative [facility]- - 03/08/2024 8:22 AM EST Therapeutic ranges for non-operative patients: Prophylaxsis/treatment of DVT: (Range:2.0-3.0) Treatment of pulmonary embolism:(Range:2.0-3.0) Prevention of systemic embolism from: -tissue heart valves -acute myocardial infarction -valvular heart disease -atrial fibrillation (Range: 2.0-3.0) Mechanical prosthetic valves: (Range: 2.5-3.5) Rhoda Alexander [facility] LAB POINT OF CARE TEST DOCKED DEVICE UNSOLICITED RESULTS Final Result [facility]- [address] documented in this encounter Visit Diagnoses Diagnosis [...] Advance Directives occurred with: Patient Care Teams Club Attendant Relationship Specialty Start Date End Date Rashawn Obrien MD PCP - General 05/26/07 documented as of this encounter"
--- OUTSIDE RECORDS SUMMARY | 2024-05-23 05:38 | External Medical Summary ---
Author Name Unknown Address Unknown Organization : Laboratory Report Ordering Provider Test Date Status KENNETH ROTH 03/16/2024 07:55:33 Final Therapeutic ranges for non-o perative patients:
Prophylaxsis/treatment of DVT: (Range:2.0-3.0)
Treatment of pulmonary embolism:(Range:2.0-3.0)
Prevention of systemic embolism from:
-tissue heart valves
-acute myocardial infarction
-valvular heart disease
-atrial fibrillation
(Range: 2.0-3.0)
Mechanical prosthetic valves: (Range: 2.5-3.5) Observation Date Value Abnormality Reference (Units ) Status INR in Capillary blood by Coagulation assay 03/16/2024 07:55:33 2.5 (INR) Final Performing Location
--- OUTSIDE RECORDS SUMMARY | 2024-05-23 05:38 | External Medical Summary | Summary of Care ---
Author Name Unknown Organization [facility] Address [address] [place] [address] Phone [phone] Care Team Providers Care Medical Records Auditor Name Role Phone Rashawn Obrien MD Primary Care Provider [phone] Reason for Visit * Reason Comments Follow Up Encounter Details Date Type Department Care Team (Late st Contact Info) Description 03/23/2024 11:00 AM EST Office Visit Cardiothoracic Surg [facility] [address], [place] [phone] Bill Kang MD [address], [place] [phone] S/P AVR (aortic valve replacement)* Allergies No known active allergiesdocumented as of this encounter (statuses as of 03/23/2024) Medications Ascorbic Acid (VITAMIN C) 500 MG [...] morning. 30 Tablet 11 02/21/20 24 Active Warfarin Sodium 5 MG Oral Tablet (Coumadin) Take once every evening as instructed by the anticoagulation clinic. 30 Tablet 3 02/21/20 24 Active Losartan Potassium 25 MG Oral Tablet (Cozaar) Take 1 Tablet by mouth in the morning. 30 Tablet 5 02/21/20 24 Active Allopurinol 300 MG Oral Tablet (Zyloprim)Indicat ions:Gouty arthropathy TAKE 1 TABLET BY MOUTH ONCE DAILY 90 Tablet 1 03/21/19 25 Active oxyCODONE HCl 5 MG Oral Tablet (Oxy IR) Take 1 Tablet by mouth every 4 hours as needed for Pain, Severe. 10 Tablet 02/21/20 24 2024 Disconti nued(Aileen corcoranen ce/disco ntinuati on) Furosemide 40 MG Oral Tablet (Lasix) Take 1 Tablet by mouth in the morning. Take for 30 days, then stop.. Do not start before February 22, 2024. 30 Tablet 02/22/20 24 2024 Disconti nued(Med ication List Clean Up) Docusate Sodium 100 MG Oral Capsule (Colace) Take 1 Capsule by mouth 2 times a day as needed for Constipation. 20 Capsule 02/21/20 24 2024 Disconti nued(Med ication List Clean Up) Potassium Chloride ER 10 MEQ Oral Tablet Extended Release Take 2 Tablets by mouth in the morning. Take for 30 days, then stop.. 60 Tablet 02/21/20 24 2024 Disconti nued(Med ication List Clean Up) Famotidine 20 MG Oral Tablet (Pepcid) Take 1 Tablet by mouth in the morning. Take for 30 days, then stop.. 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 02/15/2024 Aortic [...] as of this encounter (statuses as of 03/23/2024) Resolved Problems Problem Noted Date Diagnosed Date [...] as of this encounter (statuses as of 03/23/2024) Immunizations Name Administration Dates Next Due COVID-19 [...] 0 03/09/1964 - 03/09/1975 Smokeless Tobacco: Never Tobacco Cessation:Counseling Given: Not Answered Comments:3-4 cigarettes Alcohol Use Standard Drinks/Week Comments [...] Industry Job Start Date Job End Date [place] Not on file Not on file Not on file Not on file Not on file Not on file Not on file documented as of this encounter Last Filed Vital Signs Vital Sign Reading Time Taken Comments Blood Pressure 118/60 03/23/2024 10:49 AM EST Pulse 80 03/23/2024 10:49 AM EST Temperature - - Respiratory Rate - - Oxygen Saturation 95% 03/23/2024 10:49 AM EST Inhaled Oxygen Concentration - - Weight 94.4 kg (208 lb 3.2 oz) 03/23/2024 10:49 AM EST Height 170.8 cm (5' 7.25") 03/23/2024 10:[address] Body Mass Index 32.37 03/23/2024 10:49 AM EST documented in this [...] documented in this encounter Progress Notes * Eloy Gipson PA-C - 03/23/2024 2:15 PM EST Post-Op Visit 03/23/2024 Pre charting done by Eloy Gipson PA-C in efficiency of seeing patient and updated by Eloy Gipson PA-C Alexis Garcia is a 74 year old male s/p . He will be discharged on Coumadin x 1 month with INR goal of 2-3 (may then transition back to PTAEliquis), Lasix and potassium x 1 month, and Pepcid x 1 month. He was stable for discharge to home on POD 5. Operations & Procedures: CABGX 3 MITCHELL to LAD, SVG to OM, PDA. AVR 25mm magna ease, occlusion left atrial appendage 45mm Medtromnic clip Complications: none significant Discharge date: 02/21/2024 Discharge destination: home EF: 55% PCP visit date: Y, no changes Cardiology visit date: P, ED/Admission visit: No Social History Tobacco Use Smoking status: Former Current packs/day: 0.00 Types: Cigarettes Start date: 03/09/1965 Quit date: 03/09/1975 Years since quittin.0 Smokeless tobacco: Never Tobacco comments: 3-4 cigarettes Vaping Use Vaping status: Never Used Substance Use Topics Alcohol use: Not Currently Comment: 4-5 beers on Sat and Sun Drug use: No Social History Substance and Sexual Activity Drug Use No Feeling ok Cardiac Symptoms: no angina and no dyspnea Physical Exam: Vitals: BP 118/60 (BP Site: Left Arm, BP Position: Sitting, BP Cuff Size: Regular) | Pulse 80 | Ht 1.708 m (5' 7.25") | Wt 94.4 kg (208 lb 3.2 oz) | SpO2 95% | BMI 32.37 kg/m | BSA 2.12 m Cardiac: regular rate and rhythm Lungs: Lungs are clear to auscultation. Edema: no edema present Incisions: healing well, sternum secure, and EVH site CDI Area of redness over lower sternum -unchanged from surgery Denies drainage or fevers Current Outpatient Medications Medication Sig Dispense Refill Ascorbic Acid (VITAMIN C) 500 MG CAPS Take by mouth. Multiple Vitamins-Minerals (CENTRUM) Tablet Take 1 Tab by mouth daily. prednisoLONE Acetate 1 % Ophthalmic Suspension (Pred Forte) Instill 1 Drop into both eyes daily. 10mL 4 Atorvastatin Calcium 40 MG Oral Tablet (Lipitor) Take 1 Tablet by mouth in the morning. 90 Tablet 3 Metoprolol Succinate ER 100 MG Oral Tablet Extended Release 24 Hour (toPROL XL) Take 1 Tablet by mouth in the morning. 90 Tablet 3 Aspirin 81 MG Oral Tablet Chewable Take 1 Tablet by mouth in the morning. 30 Tablet 11 Warfarin Sodium 5 MG Oral Tablet (Coumadin) Take once every evening as instructed by the anticoagulation clinic. 30 Tablet 3 Losartan Potassium 25 MG Oral Tablet (Cozaar) Take 1 Tablet by mouth in the morning. 30 Tablet 5 Furosemide 40 MG Oral Tablet (Lasix) Take 1 Tablet by mouth in the morning. Take for 30 days, then stop.. Do not start before February 22, 2024. 30 Tablet 0 Docusate Sodium 100 MG Oral Capsule (Colace) Take 1 Capsule by mouth 2 times a day as needed for Constipation. 20 Capsule 0 Potassium Chloride ER 10 MEQ Oral Tablet Extended Release Take 2 Tablets by mouth in the morning. Take for 30 days, then stop.. 60 Tablet 0 Famotidine 20 MG Oral Tablet (Pepcid) Take 1 Tablet by mouth in the morning. Take for 30 days, thenstop.. 30 Tablet 0 Allopurinol 300 MG Oral Tablet (Zyloprim) TAKE 1 TABLET BY MOUTH ONCE DAILY 90 Tablet 1 No current facility-administered medications for this visit. Assessment/Plan: doing well Consider transitioning to eliquis per cardiology Medications reviewed Lifting restrictions and sternal precautions reviewed. Enforce restrictions for full eight weeks from hospital discharge date July,stop stockings Stop: Lasix, Potassium, and Pepcid RTC as needed Eloy Gipson PA-C 03/23/2024 Cardiothoracic Surg [place] [address] * An Palacios RN - 03/23/2024 11:25 AM EST I have educated patient on and provided a SBE prophylaxis card. Patient verbalizes understanding. An Palacios RN 03/23/2024 11:26 AM documented in this encounter Plan of Treatment Upcoming Encounters Date Type Department Care Team (Late st Contact Info) Description 03/25/2024 10:00 AM EST Office Visit Cardiology, [facility] [address] [facility] [place] [address] Idalmis Mccrary CRNP [address] [place] [address] 03/28/2024 7:50 AM EST [facility] [address] [facility] [phone] [address] [address] 05/06/2024 8:20 AM EST Office [address] Practice, [address] [phone] Rashawn Obrien MD [address] [facility] [place] [address] 06/17/2024 7:15 AM EDT Cardiac Studies Cardiac Studies, [facility] [address] [facility] [place] [address] 07/05/2024 8:00 AM EDT Office Visit Cardiology, [facility] [address] [facility] [place] [address] Idalmis Mccrary CRNP [address] [address] Scheduled Procedures Name Priority Associated Diagnoses Date/Ti me COLONOSCOPY FLEXIBLE PROXIMAL DIAGNOSTIC Recall History of colon polyps Health Maintenance Due Date Last Done Comments Cologuard 01/09/1996 Fecal Occult Blood Test 01/09/1996 Sigmoidoscopy 01/09/1996 Zoster Vaccines (2 of 3) 07/14/2012 05/19/2012 Colonoscopy 07/01/2022 07/01/2017, 06/08, 02/11/2013, Additional history exists Colorectal Cancer Screening 07/01/2022 COVID-19 Vaccine (3 - 2023- season) 2023 05/17/2020, 04/17/2020 GFR 02/20/2025 02/21/2024, [...] this encounter Medical Devices Implanted Type Area Manager Banquet Device Identifier Shelf Expiration Date Model / Serial / Lot Suture Steel 6 B&S19 M654g - [id number] Implanted:Qty: 7 on 02/16/2024 [place] Bill [place] [facility] [place]: Sternum JNJ : [employer] 11/06/2028 M654G / / 103BLE Clip Atrial Penditure 45mm - [id number] Implanted:Qty: 1 on 02/16/2024 by Bill Kang MD [place] [facility] [place]: Heart [employer] : CRM [id number] 05/27/2024 RICHIE C45 / / [id number] Valve Pericardial 25mm - [id number] - [id number] Implanted:Qty: 1 on 02/16/2024 by Bill Kang MD [place] [facility] [place]A: Heart [employer] [id number] 07/05/2027 [id number] MM / [id number] / [id number] Marker Coronary - [id number] Implanted:Qty: 2 on 02/16/2024 by Bill Kang MD [place] [facility] [place]: Aorta [employer] 12/06/2026 AM-SD / / [id number] documented as of this encounter Visit Diagnoses Diagnosis S/P AVR (aortic valve replacement)- Primary Heart valve replaced by other means documented [...] Advance Directives occurred with: Patient Care Teams Medical Records Auditor Relationship Specialty Start Date End Date Rashawn Obrien MD [address] [place] [address] PCP - General Family Medicine 03/16/24 documented as of this encounter
--- OUTSIDE RECORDS SUMMARY | 2024-05-23 05:38 | External Medical Summary | Summary of Care ---
Author Name Unknown Organization [facility] Address [address] [place] [address] Phone [phone] Care Team Providers Care Heel Sorter Name Role Phone Rashawn Obrien MD Primary Care Provider [phone] Encounter Details Date Type Department Care Team (Late st Contact Info) Description 03/14/2024 11:30 AM EST Scheduled Telephone Care Coordination and Integration [address] [place] [address] Saritha Monroy, Community Health Pulling Unit Operator [address] [place], [place] [phone] Allergies No known active allergiesdocumented as of this encounter (statuses as of 03/14/2024) Medications Ascorbic Acid (VITAMIN C) 500 MG [...] as of this encounter (statuses as of 03/14/2024) Active Problems Problem Noted Date Diagnosed Date S/P AVR (aortic valve replacement) 02/17/2024 S/P CABG x 3 02/17/2024 Coronary artery disease invo lving [place] coronary artery of [place] heart with unstable angina pectoris 02/15/2024 Aortic [...] as of this encounter (statuses as of 03/14/2024) Resolved Problems Problem Noted Date Diagnosed Date [...] as of this encounter (statuses as of 03/14/2024) Immunizations Name Administration Dates Next Due COVID-19 [...] Industry Job Start Date Job End Date [place] Not on file Not on file Not [...] Progress Notes * Saritha Monroy, Community Health Pulling Unit Operator - 03/14/2024 1:10 PM EST Telemedicine visit: No Community Health Pulling Unit Operator (RICHARDSON) documentation: This CHW placed 3rd f/u PC to patient per CM's request Patient reported he is doing well. Has a little shortness of breath every now and then but its in-frequent. His incisions looks good and no chest pain. Patient would like to know if he can take like a can of soup to life weights. This CHW suggested that patient discuss this with his PCP the next time he see's him. Patient understood. This CHW encouraged patient to reach out to CM with any worriesor concerns. Saritha Monroy- Community Health Worker 1 Support Services/[facility] [facility] [email or web address] documented in this encounter Plan of Treatment Upcoming Encounters Date Type Department Care Team (Late st Contact Info) Description 03/16/2024 7:50 AM EST Anticoagulation Pharmacy, [address] [place] [phone] [facility] [address] [facility] [place] [address] 03/23/2024 2:15 PM EST Office Visit Cardiothoracic Surg [facility] [address] [place] [address] Bill Kang MD [address] [place] [address] 03/25/2024 10:00 AM EST Office Visit Cardiology, [facility] 132 [place] [address] Idalmis Mccrary CRNP 400 [place] [address] 05/06/2024 8:20 AM EST Office Visit [facility] [address] [place] [phone] Rashawn Obrien MD [address] [place] [address] 06/17/2024 7:15 AM EDT Cardiac Studies Cardiac Studies, [facility] [address] [facility] [place] [address] 07/05/2024 8:00 AM EDT Office Visit [facility], [facility] [address] [place] [address] Idalmis Mccrary CRNP 400 [place] [address] Scheduled Procedures Name Priority Associated Diagnoses Date/Ti [...] this encounter Medical Devices Implanted Type Area Scratch Polisher Device Identifier Shelf Expiration Date Model / Serial / Lot Suture Steel 6 B&S19 M654g - [id number] Implanted:Qty: 7 on 02/16/2024 [place] [facility] [place] Sternum JNJ : [employer] 11/06/2028 M654G / / 103BLE Clip Atrial Penditure 45mm - [id number] Implanted:Qty: 1 on 02/16/2024 [place] [facility] [place]: Heart [employer] : CRM [id number] 05/27/2024 RICHIE C45 / / [id number] Valve Pericardial 25mm - [id number] - [id number] Implanted:Qty: 1 on 02/16/2024 [place] [facility] [place]: Heart [employer] [id number] 07/05/2027 [id number] MM / [id number] / [id number] Marker Coronary - [id number] Implanted:Qty: 2 on 02/16/2024 by [place] [facility] [place]: Aorta [employer] 12/06/2026 AM-SD / / [id number] documented as of this encounter Advance Directives [...] Advance Directives occurred with: Patient Care Teams Heel Sorter Relationship Specialty Start Date End Date Rashawn Obrien MD PCP - General 05/26/07 documented as of this encounter
--- OUTSIDE RECORDS SUMMARY | 2024-05-23 05:38 | External Medical Summary | Summary of Care ---
Author Name Unknown Organization [facility] Address [address] [place] [address] Phone [phone] Care Team Providers Care Land Management Forester Name Role Phone Rashawn Obrien MD Primary Care Provider Encounter Details Date Type Department Care Team (Late st Contact Info) Description 03/10/2024 11:00 AM EST Scheduled Telephone Care Coordination and Integration [address] [place] [address] Saritha Monroy, Community Health Box Toe Stitcher [address] [place], [place] [id number] Allergies No known active allergiesdocumented as of this encounter (statuses as of 03/10/2024) Medications Ascorbic Acid (VITAMIN C) 500 MG [...] as of this encounter (statuses as of 03/10/2024) Active Problems Problem Noted Date Diagnosed Date S/P AVR (aortic valve replacement) 02/17/2024 S/P CABG x 3 02/17/2024 Coronary artery disease invo lving [place] coronary artery of [place] heart with unstable angina pectoris 02/15/2024 Aortic [...] as of this encounter (statuses as of 03/10/2024) Resolved Problems Problem Noted Date Diagnosed Date [...] as of this encounter (statuses as of 03/10/2024) Immunizations Name Administration Dates Next Due COVID-19 [...] Industry Job Start Date Job End Date [place] Not on file Not on file Not [...] Progress Notes * Saritha Monroy, Community Health Box Toe Stitcher - 03/10/2024 11:24 AM EST Telemedicine visit: No Community Health Box Toe Stitcher ([place]ARDSON) documentation: This Chw placed #2 f/u PC to patient per CM's request Patient is doing really well. Is up and moving around. Incision looks really good and is all but healed up. Has shortness of breath but nothing worse than usual. No chest pain. Patient has his followup appt with doctor on 03/23. Patient did not have any questions or concerns at this time. Patient appreciated CHW's PC. Saritha Monroy- Community Health Worker 1 Support Services/[facility] [employer] [email or web address] documented in this encounter Plan of Treatment Upcoming Encounters Date Type Department Care Team (Late st Contact Info) Description 03/16/2024 7:50 AM EST [facility] [address] [facility] [place] [address] [facility] [address] [facility] [place] [address] 03/23/2024 2:15 PM EST Office Visit Cardiothoracic Surg [facility], [address] [address] Bill Kang MD [address] [place] [address] 03/25/2024 10:00 AM EST Office Visit Cardiology, [facility] [address] [place] [address] Idalmis Mccrary CRNP [address] [facility] [place] [address] 05/06/2024 8:20 AM EST Office Visit [facility], [facility] [address] [place] [phone] Rashawn Obrien MD [address] [place] [address] 06/17/2024 7:15 AM EDT Cardiac Studies Cardiac Studies, [facility] 132 [facility] [address] 07/05/2024 8:00 AM EDT Office Visit Cardiology, [facility] [address] [facility] [address] Idalmis Mccrary CRNP [facility] [place] [address] Scheduled Procedures Name Priority Associated Diagnoses Date/Ti [...] this encounter Medical Devices Implanted Type Area Flyer Repairer Device Identifier Shelf Expiration Date Model / Serial / Lot Suture Steel 6 B&S19 M654g - [id number] Implanted:Qty: 7 on 02/16/2024 by Bill Kang MD at OR [facility] N/A: Sternum JNJ : [employer] 11/06/2028 M654G / / 103BLE Clip Atrial Penditure 45mm - [id number] Implanted:Qty: 1 on 02/16/2024 by Bill Kang MD at OR [facility] N/A: Heart [employer] : CRM [id number] 05/27/2024 RICHIE C45 / / [id number] Valve Pericardial 25mm - [id number] - [id number] Implanted:Qty: 1 on 02/16/2024 by Bill Kang MD at OR [facility] N/A: Heart ANDERSON [employer] SOLIS [id number] 07/05/2027 [id number] MM / [id number] / [id number] Marker Coronary - [id number] Implanted:Qty: 2 on 02/16/2024 by Bill Kang MD at OR [facility] N/A: Aorta [employer] 12/06/2026 [facility] / / [id number] documented as of this encounter Advance Directives [...] Advance Directives occurred with: Patient Care Teams Land Management Forester Relationship Specialty Start Date End Date Rashawn Obrien MD PCP - General 05/26/07 documented as of this encounter
--- OUTSIDE RECORDS SUMMARY | 2024-05-23 05:38 | External Medical Summary | Summary of Care ---
Author Name Unknown Organization [facility] Address [address] [place] [address] Phone [phone] Care Team Providers Care Rejogger Name Role Phone Rashawn Obrien MD Primary Care Provider [phone] Reason for Visit * Reason Comments Follow Up Encounter Details Date Type Department Care Team (Late st Contact Info) Description 03/23/2024 11:00 AM EST Office Visit Cardiothoracic Surg [facility] [address] [place], [place] [phone] Bill Kang MD [address] [place], [place] [phone] S/P AVR (aortic valve replacement)* Allergies No [...] 3 02/17/2024 Coronary artery disease invo lving [place] coronary artery of [place] heart with unstable angina pectoris 02/15/2024 Aortic [...] Industry Job Start Date Job End Date [place] Not on file Not on file Not [...] needed Eloy Gipson PA-C 03/23/2024 Cardiothoracic Surg [place] [address] * An Palacios RN - 03/23/2024 11:25 AM EST I have educated patient on and provided a SBE prophylaxis card. Patient verbalizes understanding. An Palacios RN 03/23/2024 11:26 AM documented in this encounter Plan of Treatment Upcoming Encounters Date Type Department Care Team (Late st Contact Info) Description 03/25/2024 10:00 AM EST Office Visit Cardiology, [facility] 132 [facility] [place] [address] Idalmis Mccrary CRNP [address] [place] [address] 03/28/2024 7:50 AM EST [facility] [place] [facility] [phone] [address] [address] 05/06/2024 8:20 AM EST Office [address] Practice, [address] [phone] Rashawn Obrien MD 226 [place] [address] 06/17/2024 7:15 AM EDT Cardiac Studies Cardiac Studies, [facility] 132 [facility] [place] [address] 07/05/2024 8:00 AM EDT Office Visit Cardiology, [facility] [address] [facility] [place] [address] Idalmis Mccrary CRNP [address] [place] [address] Scheduled Procedures Name Priority Associated Diagnoses Date/Ti [...] this encounter Medical Devices Implanted Type Area Casting Carrier Device Identifier Shelf Expiration Date Model / Serial / Lot Suture Steel 6 B&S19 M654g - [id number] Implanted:Qty: 7 on 02/16/2024 by Bill Kang MD at [place] [facility] N/A: Sternum JNJ : [employer] 11/06/2028 M654G / / 103BLE Clip Atrial Penditure 45mm - [id number] Implanted:Qty: 1 on 02/16/2024 by Bill Kang MD at [place] [facility] N/A: Heart [employer] : CRM [id number] 05/27/2024 RICHIE C45 / / [id number] Valve Pericardial 25mm - [id number] - [id number] Implanted:Qty: 1 on 02/16/2024 by Bill Kang MD at [place] [facility] N/A: Heart [employer] SOLIS [id number] 07/05/2027 [id number] MM / [id number] / [id number] Marker Coronary - [id number] Implanted:Qty: 2 on 02/16/2024 by Bill Kang MD at [place] [facility] N/A: Aorta [employer] 12/06/2026 [facility] / / [id number] documented as of this encounter Visit Diagnoses [...] Advance Directives occurred with: Patient Care Teams Rejogger Relationship Specialty Start Date End Date Rashawn Obrien MD [address] [place] [address] PCP - General Family Medicine 03/16/24 documented as of this encounter
--- OUTSIDE RECORDS SUMMARY | 2024-05-23 05:38 | External Medical Summary | Summary of Care ---
Author Name Unknown Organization [facility] Address [address] [place] [address] Phone [phone] Care Team Providers Care Guest Services Representative Name Role Phone Rashawn Obrien MD Primary Care Provider [phone] Reason for Visit * Reason Comments Dosage Adjustment In Person (Anticoag Cl inic) Encounter Details Date Type Department Care Team (Latest Contact Info) Description 03/16/2024 7:50 AM EST Anticoagulation Pharmacy, [facility] [address] [place] [phone] [place] [facility] [address] [place] [address] Anticoagulation management encounter*; Paroxysmal atrial fibrillation (HCC); S/P AVR (aortic valve replacement); S/P CABG x 3 Allergies No known active allergiesdocumented as of this encounter (statuses as of 03/16/2024) Medications Ascorbic Acid (VITAMIN C) 500 MG [...] as of this encounter (statuses as of 03/16/2024) Active Problems Problem Noted Date Diagnosed Date S/P AVR (aortic valve replacement) 02/17/2024 S/P CABG x 3 02/17/2024 Coronary artery disease invo lving [place] coronary artery of [place] heart with unstable angina pectoris 02/15/2024 Aortic [...] as of this encounter (statuses as of 03/16/2024) Resolved Problems Problem Noted Date Diagnosed Date [...] as of this encounter (statuses as of 03/16/2024) Immunizations Name Administration Dates Next Due COVID-19 [...] Industry Job Start Date Job End Date [place] Not on file Not on file Not [...] this encounter Progress Notes * Rhoda Alexander, [facility] - 03/16/2024 7:51 AM EST Medication Therapy Disease Management - Anticoagulation Patient: Alexis Garcia | : 1950 Subjective Patient-Reported Symptoms: Patient Findings Negatives: Signs/symptoms of thrombosis, Signs/symptoms of bleeding, Change in health, Change in alcohol use, Change in activity, Upcoming invasive procedure, Missed doses, Extra doses, Change in medications, Change in diet/appetite, Bruising Objective Current Warfarin Dose As of 03/16/2024 Warfarin maintenance plan: 2.5 mg (5 mg x 0.5) every Mon, Fri; 5 mg (5 mg x 1) all other days INR Result As of 03/16/2024 INR goal: 2.0-3.0 INR used for dosin.5 (03/16/2024) Assessment & Plan Warfarin Plan As of 03/16/2024 Full warfarin instructions: 2.5 mg every Wed; 5 mg all other days Next INR check: 03/26/2024 Repeat PT/INR in 14 day(s) Weekly dose: increased Additional Dosing Information: Description Pt just recently transitioned to Eliquis on 01/22/24 (Previous warfarin dose: 2.5 mg every Thu, Sat; 5 mg all other days.). Warfarin for 1 month, then return to eliquis; cardio appts 03/23 and 03/25-- will await [...] time spent by another provider/QHP. Rhoda Alexander [facility] Clinical Pharmacist 03/16/2024, 7:51 AM documented in this encounter Plan of Treatment Upcoming Encounters Date Type Department Care Team (Late st Contact Info) Description 03/23/2024 2:15 PM EST Office Visit Cardiothoracic Surg [facility] [address] [place] [address] Bill Kang MD [address] [place] [address] 03/25/2024 10:00 AM EST Office Visit Cardiology, [facility] 132 [facility] [place] [address] Idalmis Mccrary CRNP [address] [place] [address] 03/28/2024 7:50 AM EST Anticoagulation Pharmacy, [address] [place] [phone] Cristela [facility] [address], [place] [phone] 05/06/2024 8:20 AM EST Office Visit Family Practice, [place] [address] [place] [phone] Rashawn Obrien MD 226 [facility] [place] [phone] 06/17/2024 7:15 AM EDT Cardiac Studies Cardiac Studies, [facility] [address] [facility] [place] [address] 07/05/2024 8:00 AM EDT Office Visit Cardiology, [facility] [address] [facility] [place] [address] Idalmis Mccrary CRNP 400 [facility] [place] [address] Scheduled Procedures Name Priority Associated Diagnoses Date/Ti [...] this encounter Medical Devices Implanted Type Area Cementing Bulk Material Operator Device Identifier Shelf Expiration Date Model / Serial / Lot Suture Steel 6 B&S19 M654g - [id number] Implanted:Qty: 7 on 02/16/2024 by Bill Kang MD at [place] [facility] N/A: Sternum JNJ : [employer] 11/06/2028 M654G / / 103BLE Clip Atrial Penditure 45mm - [id number] Implanted:Qty: 1 on 02/16/2024 by Bill Kang MD at [place] [facility] N/A: Heart [employer] : CRM [id number] 05/27/2024 RICHIE C45 / / [id number] Valve Pericardial 25mm - [id number] - [id number] Implanted:Qty: 1 on 02/16/2024 by Bill Kang MD at [place] [facility] N/A: Heart [employer] SOLIS [id number] 07/05/2027 [id number] MM / [id number] / [id number] Marker Coronary - [id number] Implanted:Qty: 2 on 02/16/2024 by Bill Kang MD at [place] [facility] N/A: Aorta [employer] 12/06/2026 [facility] / / [id number] documented as of this encounter Procedures Procedure Name Priority Date/Time Associated Diagnosis Comments INR FINGERSTICK, POINT OF CARE STAT 03/16/2024 7:55 AM EST Paroxysmal atrial fibrillation (HCC) S/P AVR (aortic valve replacement) S/P CABG x 3 Anticoagulation management encounter documented in this encounter Results * INR FINGERSTICK, POINT OF CARE (03/16/2024 7:55 AM EST) Fingerstick INR 2.5 INR 8:00 AM EST [facility] 56-01 Blood 03/16/2024 7:55 AM EST 03/16/2024 7:59 AM EST Narrative [facility]- - 03/16/2024 8:00 AM EST Therapeutic ranges for non-operative patients: Prophylaxsis/treatment of DVT: (Range:2.0-3.0) Treatment of pulmonary embolism:(Range:2.0-3.0) Prevention of systemic embolism from: -tissue heart valves -acute myocardial infarction -valvular heart disease -atrial fibrillation (Range: 2.0-3.0) Mechanical prosthetic valves: (Range: 2.5-3.5) Rhoda Alexander [facility] LAB POINT OF CARE TEST DOCKED DEVICE UNSOLICITED RESULTS Final Result [facility] [address] documented in this encounter Visit Diagnoses [...] Advance Directives occurred with: Patient Care Teams Guest Services Representative Relationship Specialty Start Date End Date Rashawn Obrien MD PCP - General 05/26/07 documented as of this encounter"
--- OUTSIDE RECORDS SUMMARY | 2024-05-23 05:38 | External Medical Summary ---
Author Name Unknown Address Unknown Organization : Laboratory Report Ordering Provider Test Date Status KENNETH ROTH 03/08/2024 08:11:50 Final Therapeutic ranges for non-o perative patients:
Prophylaxsis/treatment of DVT: (Range:2.0-3.0)
Treatment of pulmonary embolism:(Range:2.0-3.0)
Prevention of systemic embolism from:
-tissue heart valves
-acute myocardial infarction
-valvular heart disease
-atrial fibrillation
(Range: 2.0-3.0)
Mechanical prosthetic valves: (Range: 2.5-3.5) Observation Date Value Abnormality Reference (Units ) Status INR in Capillary blood by Coagulation assay 03/08/2024 08:11:50 1.8 (INR) Final Performing Location
--- OUTSIDE RECORDS SUMMARY | 2024-05-23 05:38 | External Medical Summary | Summary of Care ---
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 (15 years old or older) Answer Date of Assessment Author No 02/13/2024 6:54 PM EST Meredith Claros RN documented as of this encounter Mental Status * Because of a physical, mental, or emotional condition, do you have serious difficulty concentrating, remembering, or making decisions? (5 years old or older) Answer Entry Date Author No 02/13/2024 6:54 PM EST Meredith Claros RN documented in this encounter Progress Notes * Saritha Monroy, Community Health Brass Polisher - 03/01/2024 12:21 PM EST Telemedicine visit: No Community Health Brass Polisher (RICHARDSON) documentation: This CHW placed 1st f/u PC to patient and spoke with spouse. Spouse reported that patient was doing really well. Patient's incision looks great and is healing up nicely. Patient's shortness of breath is getting better, does get chest pain in the evenings and at night. Continues to take Tylenol for this pain. Patient is showering on his own and getting around well. Spouse has no other concerns or questions. This CHW encouraged patient and spouse to reach out to CM with any concerns or questions and this CHW gave CM's contact info. This CHW will be following up next week as planned. Saritha Monroy- Community Health Worker 1 Support Services/[facility] [email or web address] [email or web address] documented in this encounter Plan of Treatment Upcoming Encounters Date Type Department Care Team ([facility] Contact Info) Description 03/08/2024 8:10 AM EST Anticoagulation Pharmacy, [address] [place] [phone] Rod Archibald[address] [place] [address] 03/23/2024 2:15 PM EST Office Visit Cardiothoracic Surg [facility] [address] [place] [address] Bill Kang MD [address] [place] [address] 03/25/2024 10:00 AM EST Office Visit Cardiology, [facility] 132 [place] [address] Idalmis Mccrary CRNP [address] [place] [address] 05/06/2024 8:20 AM EST Office Visit [facility] [address] [place] [address] Rashawn Obrien MD [address] [place] [address] 06/17/2024 7:15 AM EDT Cardiac Studies Cardiac Studies, [facility] [address] [place] [address] 07/05/2024 8:00 AM EDT [facility] [address] [place] [address] Idalmis Mccrary CRNP [address] [place] [address] Scheduled Procedures Name Priority Associated Diagnoses Date/Ti [...] this encounter Medical Devices Implanted Type Area Public Health Assistant Device Identifier Shelf Expiration Date Model / Serial / Lot Suture Steel 6 B&S19 M654g - [id number] Implanted:Qty: 7 on 02/16/2024 by Bill Kang MD at OR [facility] N/A: Sternum JNJ : [employer] 11/06/2028 M654G / / 103BLE Clip Atrial Penditure 45mm - [id number] Implanted:Qty: 1 on 02/16/2024 by Bill Kang MD at OR [facility] N/A: Heart [employer] : CRM [id number] 05/27/2024 RICHIE C45 / / [id number] Valve Pericardial 25mm - [id number] - [id number] Implanted:Qty: 1 on 02/16/2024 by Bill Kang MD at OR [facility] N/A: Heart [employer] SOLIS [id number] 07/05/2027 [id number] MM / [id number] / [id number] Marker Coronary - [id number] Implanted:Qty: 2 on 02/16/2024 by Bill Kang MD at OR [facility] N/A: Aorta [employer] 12/06/2026 [facility] / / [id number] documented as of this encounter Advance Directives [...] Advance Directives occurred with: Patient Care Teams Cement Rubber Relationship Specialty Start Date End Date Rashawn Obrien MD PCP - General 05/26/07 documented as of this encounter
--- OUTSIDE RECORDS SUMMARY | 2024-05-23 05:39 | External Medical Summary | Summary of Care ---
Author Name Unknown Organization [facility] Address [address] [place] [address] Phone [phone] Care Team Providers Care Ortho Assistant Name Role Phone Rashawn Obrien MD Primary Care Provider [phone] Encounter Details Date Type Department Care Team (Late st Contact Info) Description 02/26/2024 12:30 PM EST Telemedicine Cardiothoracic Surg [facility] [place] [address] [place], [place] [id number] Eloy Gipson PA-C [address] [place] [address] S/P CABG x 3* Allergies No known active allergiesdocumented as of this encounter (statuses as of 02/26/2024) Medications Ascorbic Acid (VITAMIN C) 500 MG [...] as of this encounter (statuses as of 02/26/2024) Active Problems Problem Noted Date Diagnosed Date S/P AVR (aortic valve replacement) 02/17/2024 S/P CABG x 3 02/17/2024 Coronary artery disease invo lving [place] coronary artery of [place] heart with unstable angina pectoris 02/15/2024 Aortic [...] as of this encounter (statuses as of 02/26/2024) Resolved Problems Problem Noted Date Diagnosed Date [...] as of this encounter (statuses as of 02/26/2024) Immunizations Name Administration Dates Next Due COVID-19 mRNA, LNP-s, No Pre serve, 2-Dose Series (Vello App) 05/17/2020,04/17/2020 Pneumococcal Conjugate Vacc, 13 Valent (Prevnar) [...] No 02/22/2024 Does the household have a [facility] source of income? 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 Patient was then informed that this was a telephone call only visit. The patient agreed to participate. Visit Disposition: Routine follow-up Total call duration was 15 minutes. 1235- Lamaria elena Alexis Garcia is a 74 year old male s/p He will be discharged on Coumadin x 1 month with INR goal of 2-3 (may then transition back to DIRECTOR EXPERIMENTAL MEDICINE Eliquis), Lasix and potassium x 1 month, and Pepcid x 1 month. He was stable for discharge to home onPOD 5. Operations & Procedures: CABGX 3 MITCHELL to LAD, SVG to OM, PDA. AVR 25mm magna ease, occlusion left atrial appendage 45mm Medtromnic clip Complications: none significant Discharge date: 02/21/2024 Discharge destination: home EF: 55% PCP visit date: Y, no changes Cardiology visit date: P, ED/Admission visit: No Social History Social History Tobacco Use Smoking status: Former Current packs/day: 0.00 Types: Cigarettes Start date: 03/09/1965 Quit date: 03/09/1975 Years since quittin.9 Smokeless tobacco: Never Tobacco comments: 3-4 cigarettes Vaping Use Vaping status: Never Used Substance Use Topics Alcohol use: Yes Alcohol/week: 0.0 standard drinks of alcohol Comment: 4-5 beers on Sat and Sun Drug use: No Social History Substance and Sexual Activity Drug Use No walking independently mild SOB with ambulation,no orthopnea Decreasing swelling in legs Using tylenol only Cardiac Symptoms: no angina and no dyspnea Physical Exam: Edema: decreasing,minimal drainage from CT site Incisions: healing well and sternum secure Current Medications Current Outpatient Medications Medication Sig Dispense Refill [...] BY MOUTH ONCE DAILY 90 Tablet 2 Metoprolol Succinate ER 100 MG Oral Tablet Extended Release 24 Hour (toPROL XL) Take 1 Tablet by mouth in the morning. 90 Tablet 3 Aspirin 81 MG Oral Tablet Chewable Take 1 Tablet by mouth in the morning. 30 Tablet 11 oxyCODONE HCl 5 MG Oral Tablet (Oxy IR) Take 1 Tablet by mouth every 4 hours as needed for Pain, Severe. 10 Tablet 0 Warfarin Sodium 5 MG Oral Tablet (Coumadin) [...] for 30 days, thenstop.. 30 Tablet 0 No current facility-administered medications for this visit. Assessment/Plan: Doing well Medications reviewed Lifting restrictions and sternal precautions reviewed. Enforce restrictions for full eight weeks from hospital discharge date RTC Follow up with scheduled appointment Eloy Gipson PA-C 02/26/2024 Cardiothoracic Surg [facility] [address] [address] documented in this encounter Plan of Treatment Upcoming Encounters Date Type Department Care Team (Late st Contact Info) Description 03/01/2024 9:20 AM EST Anticoagulation Pharmacy, Cristela Lizarraga [address] [phone] [facility] [address] [place] [address] 03/23/2024 2:15 PM EST Office Visit Cardiothoracic Surg [facility] [place] [address] [place] [address] Bill Kang MD [address] [place] [address] 03/25/2024 10:00 AM EST Office Visit Cardiology, [facility] [address] [facility] [place] [address] Idalmis Mccrary CRNP [address] [place] [address] [place] [address] 05/06/2024 8:20 AM EST Office Visit Family Practice, Cristela Bautista [address] [phone] Rashawn Obrien MD [address] [facility] [place] [address] 06/17/2024 7:15 AM EDT Cardiac Studies Cardiac Studies, [facility] [address] [facility] [place] [address] 07/05/2024 8:00 AM EDT Office Visit Cardiology, [facility] [address] [facility] [place] [address] Idalmis Mccrary CRNP [address] [place] [address] Scheduled Procedures Name Priority Associated Diagnoses Date/Ti me COLONOSCOPY FLEXIBLE PROXIMAL DIAGNOSTIC Recall History of colon polyps Health Maintenance Due Date Last Done Comments Cologuard 01/09/1996 Fecal Occult Blood Test 01/09/1996 Sigmoidoscopy 01/09/1996 Zoster Vaccines (2 of 3) 07/14/2012 05/19/2012 Colonoscopy 07/01/2022 07/01/2017, 06/08, 02/11/2013, Additional history exists Colorectal Cancer Screening 07/01/2022 Adult Wellness Visit 01/23/2023 01/23/2022 COVID-19 Vaccine ( - 2023- season) 2023 05/17/2020, 04/17/2020 GFR [...] this encounter Medical Devices Implanted Type Area Senior Linux Unix Administrator Device Identifier Shelf Expiration Date Model / Serial / Lot Suture Steel 6 B&S19 M654g - [id number] Implanted:Qty: 7 on 02/16/2024 [place] [facility] [place] Sternum JNJ : [employer] 11/06/2028 M654G / / 103BLE Clip Atrial Penditure 45mm - [id number] Implanted:Qty: 1 on 02/16/2024 by Bill Kang [place] [facility] [place]: Heart [employer] : CRM [id number] 05/27/2024 RICHIE C45 / / [id number] Valve Pericardial 25mm - [id number] - [id number] Implanted:Qty: 1 on 02/16/2024 by Bill Kang [place] [facility] [place]: Heart [employer] SOLIS [id number] 07/05/2027 [id number] / [id number] / [id number] Marker Coronary - [id number] Implanted:Qty: 2 on 02/16/2024 by Bill Kang MD [place] [facility]/A: Aorta [employer] 12/06/2026 [facility] / / [id number] documented as of this encounter Visit Diagnoses Diagnosis S/P CABG x 3- Primary Postsurgical aortocoronary bypass status documented in this [...] Advance Directives occurred with: Patient Care Teams Ortho Assistant Relationship Specialty Start Date End Date Rashawn Obrien MD PCP - General 05/26/07 documented as of this encounter
--- OUTSIDE RECORDS SUMMARY | 2024-05-23 05:39 | External Medical Summary | Summary of Care ---
Author Name Unknown Organization [facility] Address [address] [place] [address] Phone [phone] Care Team Providers Care Receiver Stocker Name Role Phone Rashawn Obrien MD Primary Care Provider Reason for Visit * Reason Comments Dosage Adjustment In Person (Anticoag Cl inic) Encounter Details Date Type Department Care Team (Latest Contact Info) Description 02/24/2024 2:20 PM EST Anticoagulation Pharmacy, [facility] [address] [place] [phone] [place] [facility] [address] [place] [address] Anticoagulation management encounter*; Paroxysmal atrial fibrillation (HCC); S/P AVR (aortic valve replacement); S/P CABG x 3 Allergies No known active allergiesdocumented as of this encounter (statuses as of 02/25/2024) Medications Ascorbic Acid (VITAMIN C) 500 MG [...] as of this encounter (statuses as of 02/25/2024) Active Problems Problem Noted Date Diagnosed Date S/P AVR (aortic valve replacement) 02/17/2024 S/P CABG x 3 02/17/2024 Coronary artery disease invo lving [place] coronary artery of [place] heart with unstable angina pectoris 02/15/2024 Aortic [...] as of this encounter (statuses as of 02/25/2024) Resolved Problems Problem Noted Date Diagnosed Date [...] as of this encounter (statuses as of 02/25/2024) Immunizations Name Administration Dates Next Due COVID-19 [...] 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 Not [...] this encounter Progress Notes * Rhoda Alexander, [facility] - 02/24/2024 3:22 PM EST Medication Therapy Disease Management - Anticoagulation Patient: Alexis Garcia | : 1950 Subjective Patient-Reported Symptoms: Patient Findings Positives: Change in activity (less than usual as he recovers) Negatives: Signs/symptoms of thrombosis, Signs/symptoms of bleeding, Change in health, Change in alcohol use, Upcoming invasive procedure, Missed doses, Extra doses, Change in medications, Change in diet/appetite, Bruising Objective Current Warfarin Dose As of 02/24/2024 Warfarin maintenance plan: No maintenance plan (Previous warfarin dose: 2.5 mg every Thu, Sat; 5 mgall other days) INR Result As of 02/24/2024 INR goal: 2.0-3.0 INR used for dosin.9 (02/24/2024) Assessment & Plan Warfarin Plan As of 02/24/2024 Full warfarin instructions: 02/23: Hold; 02/24: 5 mg; 02/25: 2.5 mg; 02/26: 5 mg; 02/27: 2.5 mg; 02/28: 5 mg Next INR check: 03/01/2024 Repeat PT/INR in 5 day(s) Weekly dose: not changed Additional Dosing Information: Description Pt just recently [...] services or time spent by another provider/QHP. Rhdoa Alexander [facility] Clinical Pharmacist 02/24/2024, 3:23 PM documented in this encounter Plan of Treatment Upcoming Encounters Date Type Department Care Team (Late st Contact Info) Description 02/26/2024 12:30 PM EST Telemedicine Cardiothoracic Surg [facility], [place] [address] [place] [address] Eloy Gipson PA-C [address] [place] [address] 03/01/2024 9:20 AM EST Anticoagulation Pharmacy, [facility] [address] [place] [phone] [place], [address] [address] 03/23/2024 2:15 PM EST Office Visit Cardiothoracic Surg [facility], [place] [address] [place] [address] Bill Kang MD [address] [place] [address] 03/25/2024 10:00 AM EST Office Visit Cardiology, [facility] [address] [facility] [address] [place] [phone] Idalmis Mccrary CRNP [address] [facility] [place] [address] 05/06/2024 8:20 AM EST Office Visit Family [facility], [place] Heather Bautista [address] [facility] [place] [phone] Rashawn Obrien MD [address] [facility] [place] [address] 06/17/2024 7:15 AM EDT Cardiac Studies Cardiac Studies, [facility] [address] [facility] [place] [address] 07/05/2024 8:00 AM EDT Office Visit Cardiology, [facility] [address] [facility] [place] [address] Idalmis Mccrary CRNP [address] [place] [address] Scheduled Orders Name Type Priority Associated Diagnoses Orde r Schedule PT INR Lab Routine Paroxysmal atrial fibrillation (HCC) S/P AVR (aortic valve replacement) S/P CABG x 3 Anticoagulation management encounter 26 Occurrences starting 02/24/2024 until 02/23/2025 INR FINGERSTICK, POINT OF CARE Point of Care Testing - Unsolicited Results STAT Paroxysmal atrial fibrillation (HCC) S/P AVR (aortic valve replacement) S/P CABG x 3 Anticoagulation management encounter Every 2 Weeks for 26 Occurrences starting 02/24/2024 until 02/23/2025, 1 completed Scheduled Procedures Name Priority Associated Diagnoses Date/Ti [...] this encounter Medical Devices Implanted Type Area Dope House Operator Helper Device Identifier Shelf Expiration Date Model / Serial / Lot Suture Steel 6 B&S19 M654g - [id number] Implanted:Qty: 7 on 02/16/2024 by Bill Kang MD at [place] [facility] [place] N/A: Sternum JNJ : [employer] 11/06/2028 M654G / / 103BLE Clip Atrial Penditure 45mm - [id number] Implanted:Qty: 1 on 02/16/2024 by Bill Kang MD at [place] [facility] [place] N/A: Heart [employer] : CRM [id number] 05/27/2024 RICHIE C45 / / [id number] Valve Pericardial 25mm - [id number] - [id number] Implanted:Qty: 1 on 02/16/2024 by Bill Kang MD at [place] [facility] [place] N/A: Heart [employer] SOLIS [id number] 07/05/2027 [id number] MM / [id number] / [id number] Marker Coronary - [id number] Implanted:Qty: 2 on 02/16/2024 by Bill Kang MD at [place] [facility] [place] N/A: Aorta [employer] 12/06/2026 [facility] / / [id number] documented as of this encounter Procedures Procedure Name Priority Date/Time Associated Diagnosis Comments INR FINGERSTICK, POINT OF CARE STAT 02/24/2024 3:35 PM EST Paroxysmal atrial fibrillation (HCC) S/P AVR (aortic valve replacement) S/P CABG x 3 Anticoagulation management encounter documented in this encounter Results * INR FINGERSTICK, POINT OF CARE (02/24/2024 3:35 PM EST) Fingerstick INR 2.9 INR 8:14 AM EST [facility]- Blood 02/24/2024 3:35 PM EST 02/25/2024 8:14 AM EST Narrative [facility]-01 - 02/25/2024 8:14 AM EST Therapeutic ranges for non-operative patients: Prophylaxsis/treatment of DVT: (Range:2.0-3.0) Treatment of pulmonary embolism:(Range:2.0-3.0) Prevention of systemic embolism from: -tissue heart valves -acute myocardial infarction -valvular heart disease -atrial fibrillation (Range: 2.0-3.0) Mechanical prosthetic valves: (Range: 2.5-3.5) us Rhoda Alexander [facility] LAB POINT OF CARE TEST DOCKED DEVICE UNSOLICITED RESULTS Final Result [facility] [address] [place] [address], [facility] documented in this encounter Visit Diagnoses Diagnosis [...] Advance Directives occurred with: Patient Care Teams Receiver Stocker Relationship Specialty Start Date End Date Rashawn Obrien MD PCP - General 05/26/07 documented as of this encounter"
--- OUTSIDE RECORDS SUMMARY | 2024-05-23 05:39 | External Medical Summary | Summary of Care ---
Author Name Unknown Organization [facility] Address [address] [place] [address] Phone [phone] Care Team Providers Care Post Anesthesia Nurse Name Role Phone Rashawn Obrien MD Primary Care Provider [phone] Reason for Visit * Reason Comments Status Check Encounter Details Date Type Department Care Team (Latest Contact Info) Description 02/22/2024 5:10 PM EST Anticoagulation Pharmacy, [facility] [address] [place] [phone] [facility] [address] [place] [address] Anticoagulation management encounter*; Paroxysmal atrial fibrillation (HCC); S/P AVR (aortic valve replacement); S/P CABG x 3 Allergies No known active allergiesdocumented as of this encounter (statuses as of 02/22/2024) Medications Ascorbic Acid (VITAMIN C) 500 MG [...] as of this encounter (statuses as of 02/22/2024) Active Problems Problem Noted Date Diagnosed Date S/P AVR (aortic valve replacement) 02/17/2024 S/P CABG x 3 02/17/2024 Coronary artery disease invo lving [place] coronary artery of [place] heart with unstable angina pectoris 02/15/2024 Aortic [...] as of this encounter (statuses as of 02/22/2024) Resolved Problems Problem Noted Date Diagnosed Date [...] as of this encounter (statuses as of 02/22/2024) Immunizations Name Administration Dates Next Due COVID-19 [...] 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 No Pt presented to [facility] on 02/08 with chest pain, arm tingling etc. [place] [facility] Underwent CABG x3 on 02/16/24. Discharged 02/21/24. Follow up with INR check 02/23 to match PCP Rhoda Alexander, PharmD, BCACP Clinical Pharmacist Medication Therapy Disease Management 02/22/2024, 12:42 PM documented in this encounter Plan of Treatment Upcoming Encounters Date Type Department Care Team (Late st Contact Info) Description 02/24/2024 2:20 PM EST Anticoagulation Pharmacy, [address] [phone] [facility] [address] [facility] [address] 02/24/2024 3:00 PM EST Office Visit [facility], [place] [phone] Rashawn Obrien MD [address] [place] [address] 02/26/2024 12:30 PM EST Telemedicine Cardiothoracic Surg [facility] [place] [address] [place] [address] Eloy Gipson PA-C [address] [place] [address] 03/23/2024 2:15 PM EST Office Visit Cardiothoracic Surg [facility], [place] [address] [place] [address] Bill Kang MD [address] [place] [address] 03/25/2024 10:00 AM EST Office Visit Cardiology, [facility] [address] [facility] [place] [address] Idalmis Mccrary CRNP [address] [place] [address] 05/06/2024 8:20 AM EST Office Visit [facility], Cristela [place] [phone] Rashawn Obrien MD [address] [place] [address] 06/17/2024 7:15 AM EDT Cardiac Studies Cardiac Studies, [facility] [address] [facility] [place] [address] 07/05/2024 8:00 AM EDT Office Visit Cardiology, [facility] [address] [facility] [place] [address] Idalmis Mccrary CRNP [address] [place] [address] Scheduled Procedures Name Priority [...] this encounter Medical Devices Implanted Type Area Radio Station Audio Engineer Device Identifier Shelf Expiration Date Model / Serial / Lot Suture Steel 6 B&S19 M654g - [id number] Implanted:Qty: 7 on 02/16/2024 by Bill Kang [place] [facility] [place]: Sternum JNJ : [employer] 11/06/2028 M654G / / 103BLE Clip Atrial Penditure 45mm - [id number] Implanted:Qty: 1 on 02/16/2024 by Bill Kang MD [place] [facility] [place]: Heart [employer] : CRM [id number] 05/27/2024 RICHIE C45 / / [id number] Valve Pericardial 25mm - [id number] - [id number] Implanted:Qty: 1 on 02/16/2024 by Bill Kang MD [place] [facility] [place]: Heart [employer] SOLIS [id number] 07/05/2027 [id number] MM / [id number] / [id number] Marker Coronary - [id number] Implanted:Qty: 2 on 02/16/2024 by Bill Kang MD [place] [facility] [place]: Aorta [employer] 12/06/2026 [facility] / / [id number] documented as of this encounter Visit Diagnoses Diagnosis Anticoagulation management [...] Advance Directives occurred with: Patient Care Teams Post Anesthesia Nurse Relationship Specialty Start Date End Date Rashawn Obrien MD [address] [address] PCP - General 05/26/07 documented as of this encounter"
--- OUTSIDE RECORDS SUMMARY | 2024-05-23 05:39 | External Medical Summary ---
Author Name Unknown Address Unknown Organization : Laboratory Report Ordering Provider Test Date Status KENNETH ROTH 02/24/2024 15:35:13 Final Therapeutic ranges for non-o perative patients:
Prophylaxsis/treatment of DVT: (Range:2.0-3.0)
Treatment of pulmonary embolism:(Range:2.0-3.0)
Prevention of systemic embolism from:
-tissue heart valves
-acute myocardial infarction
-valvular heart disease
-atrial fibrillation
(Range: 2.0-3.0)
Mechanical prosthetic valves: (Range: 2.5-3.5) Observation Date Value Abnormality Reference (Units ) Status INR in Capillary blood by Coagulation assay 02/24/2024 15:35:13 2.9 (INR) Final Performing Location
--- OUTSIDE RECORDS SUMMARY | 2024-05-23 05:39 | External Medical Summary | Summary of Care ---
Author Name Unknown Organization [facility] Address [address] [place] [address] Phone [phone] Care Team Providers Care Traffic Counter Name Role Phone Rashawn Obrien MD Primary Care Provider [phone] Reason for Visit * Reason Onset Date Comments Hospital Follow-Up Patient is he re today for a hospital follow up. Patient states he is having SOB, causing him to not feel "the best" Hospital Follow-Up 02/24/2024 Hospital Follow-Up 02/25/2024 Encounter Details Date Type Department Care Team (Late st Contact Info) Description 02/24/2024 3:00 PM EST [facility] [address] [place] [phone] Rashawn Obrien MD [address] [place] [address] Hospital discharge follow-up* Allergies No known active allergiesdocumented as of this encounter (statuses as of 02/28/2024) Medications Ascorbic Acid (VITAMIN C) 500 MG [...] as of this encounter (statuses as of 02/28/2024) Active Problems Problem Noted Date Diagnosed Date S/P AVR (aortic valve replacement) 02/17/2024 S/P CABG x 3 02/17/2024 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 Never true 02/22/20 Within the past 12 months, t he [...] No 02/22/2024 Does the household have a [facility] income? (Household - [...] Industry Job Start Date Job End Date [employer] Not on file Not on file Not on file Not on file Not on file Not on file Not on file documented as of this encounter Last Filed Vital Signs Vital Sign Reading Time Taken Comments Blood Pressure 126/66 02/24/2024 3:29 PM EST Pulse 72 02/24/2024 3:29 PM EST Temperature 36.9 C (98.4 F) 02/24/2024 3:29 PM ES T Respiratory Rate 16 02/24/2024 3:29 PM EST Oxygen Saturation 97% 02/24/2024 3:29 PM EST Inhaled Oxygen Concentration - - Weight 99.1 kg (218 lb 8 oz) 02/24/2024 3:29 PM EST Height 172.7 cm (5' 8") 02/24/2024 3:29 PM EST Body Mass Index 33.22 02/24/2024 3:29 PM EST documented in this encounter Functional Status [...] Progress Notes * Rashawn Obrien MD - 02/24/2024 3:49 PM EST Subjective: Alexis Garcia is a 74 year old male. Chief Complaint Patient presents with Hospital Follow-Up Patient is here today for a hospital follow up. Patient states he is having SOB, causing him to not feel "the best" HPI: 74-year-old seen today in follow-up after recent both [facility] and [facility] hospitalizations. He was hospitalized at [facility] 02/10-02/13/24 presenting with chest pain. He was transferred to [place] on 02/12 for admission and ultimate discharge was 02/21/2024. He has a known history of paroxysmal atrial fib and moderate aortic stenosis and a known dilated left atrium and hypertrophic cardiomyopathy and dyslipidemia. He was hunting on February 10 and developed persistent crushing substernal chest pain radiating to the left shoulder and neck. After admission to [facility] was decided to transfer as he was going to need cardiac catheterization and possible surgical intervention. After admission to [facility] cardiac catheterization was done in showed a 95% obstruction of the left main in his 70% obstruction of the right coronary artery as well as a markedly dilated left atrium. He underwent surgery including CABG x3 MITCHELL to LAD, SVG to OM, PDA. Atrial valve replacement and occlusion of the left atrial appendage. He did well postoperatively and was discharged home. Medication changes included: Eliquis was stopped and he was transitioned to Coumadin. Hydrochlorothiazide was stopped. Losartan dose was decreased from 50- 25 mg a day. Aspirin 81 mg 1 daily, Pepcid 30 mg daily as needed for heartburn, furosemide 40 mg daily for 30 days in potassium chloride 10 mEq 2 tablets daily for 30 days. Coumadin was added in his me in managed by MTM with an INR goal of 2.5. Patient is aware that he is not to drive until approved by cardiovascular surgery. He is not to lift anything greater than a gal of milk. Right now he is only complaint is some soreness in the chest wall. He has shortness of breath but no different than his usual-certainly no worse possibly a little better. Patient Active Problem List Diagnosis Gout History [...] Unstable angina (HCC) Coronary artery disease involving benton coronary artery of benton heart with unstable angina pectoris (HCC) Aortic [...] of patient's allergies indicates: No Known Allergies Review Of Systems: Skin: negative Eyes: negative Ears/Nose/Throat: negative Respiratory: negative Cardiovascular: negative Gastrointestinal: negative Genitourinary: negative Musculoskeletal: negative Neurologic: negative Psychiatric: negative Hematologic/Lymphatic/Immunologic: negative Endocrine: negative Objective: BP 126/66 (BP Site: Right Arm, BP Position: Sitting, BP Cuff Size: Regular) | Pulse 72 | Temp 98.4 F (36.9 C) (Tympanic) | Resp 16 | Ht 5' 8" (1.727 m) | Wt 218 lb 8 oz (99.1 kg) | SpO2 97% | BMI33.22 kg/m | BSA 2.18 m Physical Exam: CONST: alert, pleasant, no acute distress Eyes - PERRLA, EOM'I OROPHARYNX: clear, no swelling or erythema, moist CV: regular rate and rhythm, no murmur CHEST: clear to auscultation bilaterally, no rales or wheezing ABD: soft, non tender, non distended, no masses or hepatosplenomegaly EXT: no edema, no joint swelling or deformities, NEURO: AAOx3, no gross focal deficits, cerebellar signs normal, affect appropriate MENTAL STATUS: no evidence of thought disorder, no delusional thought, no evidence of paranoia, thought is non-tangential. SKIN: no rash or significant lesions ASSESSMENT/PLAN: 1. Aortic valve replacement-tissue valve. 2. History paroxysmal atrial fibrillation-continue Coumadin as well as metoprolol succinate 100 mg daily 3. Status post CABG-continue aspirin 81 mg daily. Thirty days total of Lasix 40 mg a day and potassium chloride 20 mEq daily 4. History gout-continue allopurinol 300 mg daily 5. Hypertension-continue lower dose of losartan i.e. 25 mg daily See again 05/06/2024. I spent a total of 30-39 minutes (exact time 35 mins) minutes on the date of service in preparation, delivery, and documentation of the care provided to Alexis Garcia excluding any time spent in performance of separately billed services. Rashawn Obrien MD documented in this encounter Nursing Notes * Katherin Baez LPN - 02/24/2024 3:34 PM EST The patient has been properly identified by confirmation of name and date of . Chief Complaint Patient presents with Hospital Follow-Up Patient is here today for a hospital follow up. Patient states he is having SOB, causing him to not feel "the best" documented in this encounter Plan of Treatment Upcoming Encounters Date Type Department Care Team (Late st Contact Info) Description 03/01/2024 9:20 AM EST Anticoagulation Pharmacy, [facility] [address] [place] [address] [facility] [address] [place] [address] 03/23/2024 2:15 PM EST Office Visit Cardiothoracic Surg [facility] [address] [place] [address] Bill Kang MD [address] [place] [address] 03/25/2024 10:00 AM EST Office Visit Cardiology, [facility] [address] [facility] [place] [address] Idalmis Mccrary CRNP [address] [place] [address] 05/06/2024 8:20 AM EST Office Visit Family [address] [place] [phone] Rashawn Obrien MD [address] [place] [address] 06/17/2024 7:15 AM EDT Cardiac Studies Cardiac Studies, [facility] [address] [facility] [place] [address] 07/05/2024 8:00 AM EDT [facility] [address] [facility] [place] [address] Idalmis Mccrary CRNP [address] [place] [address] Scheduled Procedures Name Priority Associated Diagnoses Date/Ti [...] this encounter Medical Devices Implanted Type Area Teacher Of Family And Consumer Science Device Identifier Shelf Expiration Date Model / Serial / Lot Suture Steel 6 B&S19 M654g - [id number] Implanted:Qty: 7 on 02/16/2024 by Bill Kang MD at [place] [facility] N/A: Sternum JNJ : [employer] 11/06/2028 M654G / / 103BLE Clip Atrial Penditure 45mm - [id number] Implanted:Qty: 1 on 02/16/2024 by Bill Kang MD at OR [facility] N/A: Heart [employer] : CRM [id number] 05/27/2024 RICHIE C45 / / [id number] Valve Pericardial 25mm - [id number] - [id number] Implanted:Qty: 1 on 02/16/2024 by Bill Kang MD at OR [facility] N/A: Heart [employer] SOLIS [id number] 07/05/2027 [id number] / [id number] / [id number] Marker Coronary - [id number] Implanted:Qty: 2 on 02/16/2024 by Bill Kang MD at OR [facility] N/A: Aorta [employer] 12/06/2026 [facility] / / [id number] documented as of this encounter Visit Diagnoses Diagnosis Hospital discharge follow-up- Primary Other follow-up examination documented in this encounter Advance Directives * [...] Advance Directives occurred with: Patient Care Teams Traffic Counter Relationship Specialty Start Date End Date Rashawn Obrien MD PCP - General 05/26/07 documented as of this encounter
--- OUTSIDE RECORDS SUMMARY | 2024-05-23 05:39 | External Medical Summary | Summary of Care ---
Author Name Unknown Organization [facility] Address [address] [place] [address] Phone [phone] Care Team Providers Care Gift Officer Name Role Phone Mariajose Obrien MD Primary Care Provider [phone] Reason for Visit * Reason Onset Date Comments Hospital Follow-Up 02/20/2024 Encounter Details Date Type Department Care Team (Late st Contact Info) Description 02/20/2024 Telephone [facility] [address] [place] [address] Mariajose Obrien MD [address] [place] [address] Hospital Follow-Up Allergies No known active allergiesdocumented as of [...] ONCE DAILY 90 Tablet 2 4 Active Metoprolol Succinate ER 100 MG Oral Tablet Extended Release 24 Hour (toPROL XL)Indications:Hype rtrophic cardiomyopathy (HCC),Essential hypertension with goal blood pressure less than 130/80 Take 1 Tablet by mouth in the morning. 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 02/22/2024 * Telephone Encounter - Susanne Soares OSA - 02/20/2024 9:31 PM EST Patient Name: ALEXIS GARCIA([id number])Sex: MaleDOB: 1950 PCP: MARIAJOSE OBRIEN Center: [facility] [place] Types of orders made on 02/20/2024: IP Post Discharge , Lab, Medications, RespiratoryOrder Date:02/20/2024Ordering User:CLAIRE MOHR [[id number]]Attending Provider:Eladio Teixeira MD [[id number]]Authorizing Provider: Claire Mohr CRNP [[id number]][facility][[id number]]Order Specific InformationOrder: RETURN APPT [CUSTOM: [id number]] Order #: [id number]: 1 Priority: Routine Class: Nursing Unit Department (Single Entry) -> General Internal Medicine Appt Needed Within: (Specify #of Days, Weeks, Months) -> 2 Wks Provider -> MARIAJOSE OBRIEN Released on: 02/20/2024 4:06 PM Pr iority: Routine Class: Nursing Unit Department (Single Entry) -> General Internal Medicine Appt Needed Within: (Specify # of Days, Weeks, Months) -> 2 Wks Provider -> MARIAJOSE OBRIEN Releasedon: 02/20/2024 4:06 PM documented in this encounter Plan of Treatment Upcoming Encounters Date Type Department Care Team (Late st Contact Info) Description 02/22/2024 5:10 PM EST Anticoagulation Pharmacy, [address] [facility] [phone] [facility] [address] [facility] [address] 02/23/2024 8:50 AM EST Anticoagulation Pharmacy, [address] [facility] [place] [address] [facility] [address] [facility] [place] [address] 02/24/2024 3:00 PM EST Office Visit Family [facility], [place] [phone] Mariajose Obrien MD [address] [place] [address] 02/26/2024 12:30 PM EST Telemedicine Cardiothoracic Surg [facility] [place] [address] [place] [address] Eloy Gipson PA-C [address] [place] [address] 03/23/2024 2:15 PM EST Office Visit [facility] [place] [address] [place] [address] Bill Kang MD [address] [place] [address] 03/25/2024 10:00 AM EST Office Visit Cardiology, [facility] [address] [place] [address] Idalmis Mccrary CRNP [address] [place] [address] 05/06/2024 8:20 AM EST Office Visit Family [facility], [place] [phone] Mariajose Obrien MD [address] [place] [address] 06/17/2024 7:15 AM EDT Cardiac Studies Cardiac Studies, [facility] [address] [facility] [place] [address] 07/05/2024 8:00 AM EDT Office Visit Cardiology, [facility] [address] [facility] [place] [address] Idalmis Mccrary CRNP [address] [place] [address] [place] [address] Scheduled Procedures Name Priority [...] this encounter Medical Devices Implanted Type Area District Attorney Device Identifier Shelf Expiration Date Model / Serial / Lot Suture Steel 6 B&S19 M654g - [id number] Implanted:Qty: 7 on 02/16/2024 by Bill Kang [place] [facility] [place]/A: Sternum JNJ : [employer] 11/06/2028 M654G / / 103BLE Clip Atrial Penditure 45mm - [id number] Implanted:Qty: 1 on 02/16/2024 by Bill Kang [place] [facility] N/A: Heart [employer] : CRM [id number] 05/27/2024 RICHIE C45 / / [id number] Valve Pericardial 25mm - [id number] - [id number] Implanted:Qty: 1 on 02/16/2024 by Bill Kang MD [place] [facility] N/A: Heart [employer] [id number] 07/05/2027 [id number] MM / [id number] / [id number] Marker Coronary - [id number] Implanted:Qty: 2 on 02/16/2024 by Bill Kang MD at [place] [facility] N/A: Aorta [employer] 12/06/2026 [facility] / / [id number] documented as of this encounter Advance Directives [...] Advance Directives occurred with: Patient Care Teams Gift Officer Relationship Specialty Start Date End Date Mariajose Obrien MD [address] [place] [address] PCP - General 05/26/07 documented as of this encounter
--- OUTSIDE RECORDS SUMMARY | 2024-05-23 05:39 | External Medical Summary ---
Author Name Unknown Address Unknown Organization : Laboratory Report Ordering Provider Test Date Status KENNETH ROTH 03/01/2024 09:33:05 Final Therapeutic ranges for non-o perative patients:
Prophylaxsis/treatment of DVT: (Range:2.0-3.0)
Treatment of pulmonary embolism:(Range:2.0-3.0)
Prevention of systemic embolism from:
-tissue heart valves
-acute myocardial infarction
-valvular heart disease
-atrial fibrillation
(Range: 2.0-3.0)
Mechanical prosthetic valves: (Range: 2.5-3.5) Observation Date Value Abnormality Reference (Units ) Status INR in Capillary blood by Coagulation assay 03/01/2024 09:33:05 2.0 (INR) Final Performing Location
--- OUTSIDE RECORDS SUMMARY | 2024-05-23 05:40 | External Medical Summary ---
Author Name Unknown Address Unknown Organization K01:[facility] [address] [place] [address] Laboratory Report Ordering Provider Test Date Status GUSTAVO ESCOTO 02/20/2024 04:40:00 Final Observation Date Value Abnormality Reference (Units ) Status Magnesium 02/20/2024 04:40:00 2.6 1.5-2.6 (m g/dL) Final Performing Location [facility] [address] [place] [address]
--- OUTSIDE RECORDS SUMMARY | 2024-05-23 05:40 | External Medical Summary ---
Author Name Unknown Address Unknown Organization K01:[facility] [address] [place] [address] Laboratory Report Ordering Provider Test Date Status GUSTAVO ESCOTO 02/21/2024 04:39:00 Final Observation Date Value Abnormality Reference (Units ) Status Magnesium 02/21/2024 04:39:00 2.6 1.5-2.6 (m g/dL) Final Performing Location [facility] [address] [place] [address]
--- OUTSIDE RECORDS SUMMARY | 2024-05-23 05:40 | External Medical Summary | Summary of Care ---
Author Name Unknown Organization [facility] Address [address] [place] [address] Phone [phone] Care Team Providers Care Coal Yard Supervisor Name Role Phone Rashawn Obrien MD Primary Care Provider [phone] Reason for Referral * Evaluate & Treat - Unlimited Visits (Within 3 days (urgent)) - Authorized Specialty Diagnoses / Procedures Referred By Contclare t Referred To Contact ANTI-COAG CLINIC / Pharmacy Diagnoses S/P CABG x 3 S/P AVR (aortic valve replacement) Paroxysmal atrial fibrillation (HCC) Haylie Lea CRNP [address] [place] [address] Phone: tel: fax: Referral ID Status Reason Start Date Expiration Date Visits Requested Visits Authorized [id number] Authorized Specialty Services Required 4 08/15/2024 99 99 Question Answer Referral Priority Within 3 days (urgent) Where should this appointment be scheduled? [facility] Anticoagulation referral for management of: Warfarin Indication and INR goal for Warfarin Management: Stroke Prevention: Atrial Fibrillation/Flutter 2.0 - 3.0 Relevant History: recent open heart surgery, was previously on eliquis, will do coumadin for a month then back to eliquis Enoxaparin bridging required? No Minimum frequency patient should be seen in person for medication management: as appropriate per clinical condition and patient status By my signature, I understand that my patient Alexis Garcia will have his medication therapy managed by the [facility] ([facility]) per established policies, procedures, and protocols. I also certify that this referral may serve as an initiation of service for the management of drug therapy in the above noted patient. [facility] providers will be responsible for scheduling patient visits, obtaining appropriate laboratory studies, and adjusting medication management therapy per patient's need, in addition to those roles spelled out in the clinic policy, procedures, and drug management protocols. I understand that the service provided by the [facility] Clinic is voluntary and have informed patient that they can refuse the service at their discretion. I am aware that the [facility] Clinic will provide me with a copy of the patient encounter via my Dotted Block InMEEP. I authorize the [facility] Clinic to carry out these activities on my behalf. I consider this program to be a necessary part of the patient's medical care. 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 [facility] Discharge Order Reason for Visit * Auth/Cert Specialty Diagnoses / Procedures Referred By Claudia bassett Referred To Contact Diagnoses A.S., angina Nickand, Eladio Hardy MD [address] [place] [address] Phone: tel: fax: Admissions, [facility] [address] [place] [address] Referral ID Status Reason Start Date Expiration Date Visits Re quested Visits Authorized [id number] Encounter Details Date Type Department Care Team (Latest Contact Info) Description 02/13/2024 6:33 PM EST - 02/21/2024 11:37 AM EST Hospital Encounter CICU, Cardiac Intensive Care Unit [facility] 7TH Floor [address] [place] [address] Eladio Teixeira MD [address] [place] [address] Rola Chavez MD [address] [place] [address] Bill Kang MD [address], [place] [id number] Various: KRAVS,CDIQDC,EKG Discharge Disposition: Home - Self Care Allergies No known active allergiesdocumented as of this encounter (statuses as of 02/21/2024) Medications Ascorbic Acid (VITAMIN C) 500 MG [...] ONCE DAILY 90 Tablet 2 024 Active Metoprolol Succinate ER 100 MG Oral Tablet Extended Release 24 Hour (toPROL XL)Indications:H ypertrophic cardiomyopathy (HCC),Essential hypertension with goal blood pressure less than 130/80 Take 1 Tablet by mouth in the morning. 90 Tablet 3 Active Aspirin 81 MG Oral Tablet Chewable Take 1 Tablet by mouth in the morning. 30 Tablet 11 Active oxyCODONE HCl 5 MG Oral Tablet (Oxy IR) Take 1 Tablet by mouth every 4 hours as needed for Pain, Severe. 10 Tablet Active Warfarin Sodium 5 MG Oral Tablet (Coumadin) Take once every evening as instructed by the anticoagulation clinic. 30 Tablet 3 Active Losartan Potassium 25 MG Oral Tablet (Cozaar) Take 1 Tablet by mouth in the morning. 30 Tablet 5 Active Furosemide 40 MG Oral Tablet (Lasix) Take 1 Tablet by mouth in the morning. Take for 30 days, then stop.. Do not start before February 22, 2024. 30 Tablet Active Docusate Sodium 100 MG Oral Capsule (Colace) Take 1 Capsule by mouth 2 times a day as needed for Constipation. 20 Capsule Active Potassium Chloride ER 10 MEQ Oral Tablet Extended Release Take 2 Tablets by mouth in the morning. Take for 30 days, then stop.. 60 Tablet Active Famotidine 20 MG Oral Tablet (Pepcid) Take 1 Tablet by mouth in the morning. Take for 30 days, then stop.. 30 Tablet Active Zoster Vac Recomb Adjuvanted 50 MCG/0.5ML Intramuscular Suspension Reconstituted (SHINGRIX) Inject 0.5 mL into a large muscle now and repeat dose in 60 to 180 days 1 Each 1 020 2023 Discontinued Sildenafil Citrate 100 MG Oral TabletIndication s:Other male erectile dysfunction Take 1 Tablet by mouth daily as needed for Erectile Dysfunction. 10 Tablet 5 021 2023 Discontinued Sildenafil Citrate 100 MG Oral Tablet (Viagra)Indicati ons:Other male erectile dysfunction Take 1 Tablet by mouth daily as needed for Erectile Dysfunction. 1-4 hours before intercourse, no more than 1 dose in 24 hours. 10 Tablet 5 024 2023 Discontinued hydroCHLOROthiaz robert 25 MG Oral Tablet (Hydrodiuril)Ind ications:Essenti al hypertension with goal blood pressure less than 130/80 Take 1 Tablet by mouth in the morning. 90 Tablet 1 024 2023 Discontinued Losartan Potassium 100 MG Oral Tablet (Cozaar)Indicati ons:Essential hypertension with goal blood pressure less than 130/80 Take 1 Tablet by mouth in the morning. In the morning.. 90 Tablet 1 024 2023 Discontinued Apixaban 5 MG Oral Tablet (Eliquis)Indicat ions:Paroxysmal atrial fibrillation (HCC),Anticoagul ation management encounter Take 1 Tablet by mouth in the morning and 1 Tablet before bedtime. Stop warfarin. 180 Tablet 4 024 2023 Discontinued documented as of this encounter (statuses as of 02/21/2024) Active Problems Problem Noted Date Diagnosed Date S/P AVR (aortic valve replacement) 02/17/2024 S/P CABG x 3 02/17/2024 Coronary artery disease invo lving robinson coronary artery of robinson heart with unstable angina pectoris 02/15/2024 Aortic [...] as of this encounter (statuses as of 02/21/2024) Resolved Problems Problem Noted Date Diagnosed Date [...] as of this encounter (statuses as of 02/21/2024) Immunizations Name Administration Dates Next Due COVID-19 [...] Answer Date Recorded PHQ-2 Score 0 10/19/2019 Personal Safety Answer Date Recorded Do you feel unsafe or have concerns for your saf ety? No 02/13/2024 Do you have concerns for you r family's safety? (Household - for ages 0-17 years) Not on file 02/13/2024 Utilities Answer Date Recorded Do you have trouble paying y our heating, water, or electric bill? No 02/13/2024 Is your family able to pay t he heat, water, or electric bill? (Household - for ages 0-17 years) Not on file 02/13/2024 Does your family have access to good internet? (Household - for ages 0-17 years) Not on file 02/13/2024 Transportation Needs Answer Date Record ed Do you have trouble getting a ride to medical visits or work? (Adult - for ages 18 years and over) Not on file 02/13/2024 Does your family have a hard time getting a ride to doctors visits? (Household - for ages 0-17 years) Not on file 02/13/2024 Has lack of transportation k ept you from medical appointments, meetings, work, or from getting things needed for daily living? Check all that apply. No 02/13/2024 Do you (or your family) have trouble finding or paying for a ride (transportation)? (Household - for ages 0-17 years) Not on file 02/13/2024 Housing Stability Answer Date Recorded Do you currently live in a s helter or have no steady place to sleep at night? (Adult - for ages 18 years and over) Not on file 02/13/2024 Do you think you are at risk of becoming homeless? (Adult - for ages 18 years and over) Not on file 02/13/2024 Does your family worry about paying for your home or becoming homeless? (Household - for ages 0-17 years) Not on file 1 04/15/2023 Are you homeless or worried that you might be in the future? No 02/13/2024 Are you (or your family) gloria eless or worried that you might be in the future? (Household - for ages 0-17 years) Not on file Food Insecurity Answer Date Recorded Do you need food for this week? No 02/13/2024 Are you able to get enough f ood for your family? (Household - for ages 0-17 years) Not on file 02/13/2024 Does your family need food t his week? (Household - for ages 0-17 years) Not on file 02/13/2024 Do you always have enough fo od for your family? (Household - for ages 0-17 years) Not on file 02/13/2024 Sex and Gender Information Value Date Recorded Sex Assigned at Male 07/08/2018 7:18 AM EDT Legal Sex Male 7:12 AM EST Gender Identity Male 07/08/2018 7:18 AM EDT Sexual Orientation Straight 07/08/2018 7: 18 AM EDT Occupation Industry Job Start Date Job End Date [place] Not on file Not on file Not on file Not on file Not on file Not on file Not on file documented as of this encounter Last Filed Vital Signs Vital Sign Reading Time Taken Comments Blood Pressure 107/65 02/21/2024 8:00 AM EST Pulse 68 02/21/2024 8:00 AM EST Temperature 36.6 C (97.9 F) 02/21/2024 8:00 AM ES T Respiratory Rate 20 02/20/2024 7:00 PM EST Oxygen Saturation 95% 02/21/2024 8:00 AM EST Inhaled Oxygen Concentration - - Weight 98.2 kg (216 lb 7.9 oz) 02/21/2024 6:00 A M EST Height 172.7 cm (5' 8") 02/13/2024 9:00 PM EST Body Mass Index 32.92 02/13/2024 9:00 PM EST documented in this encounter Functional Status * Are you deaf or do you have serious difficulty hearing? Answer Date of Assessment Author No 02/13/2024 6:54 PM EST Meredith Claros RN * Are you blind or do [...] Meredith Rivers RN documented in this encounter Discharge Instructions * Discharge Instr - AVS* Talia Mohr CRNP - 02/19/2024 9:41 AM EST Discharge Date: 02/21/2024 You may call of the department of Cardiothoracic Surgery at [phone] during business hours for any questions or test results. After hours emergencies: Call [phone] and have theCardiothoracic Surgery service paged. The information below provides you with the instructions and the list of medications you need to betaking following discharge from the hospital. If you have any questions, please ask before leaving.Please carry this letter with you when you see your doctor in the clinic. If you have questions, you can reach us at the numbers above. Brief summary of your inpatient care: You presented to the ED at [facility] for evaluation of chest pain and shortness of breath and then completed pre- operative workup for open heart surgery. You underwent below noted procedure on 02/16/2024. There were no major intra-operative issues. Following surgeryyou recovered in CICU without any complications. You were restarted on metoprolol and this was welltolerated. You were restarted on your losartan but at a lower dose. You will be sent home on Lasix and potassium x 1 month, and Pepcid x 1 month. You were stable for discharge to home on POD 5. Your doctors during this hospitalization included: Your primary diagnosis at discharge was aortic valve stenosis (), coronary artery disease (CAD) and atrial fibrillation s/p aortic valve replacement (AVR), coronary artery bypass grafting (CABG) x3and left atrial appendage clip. Inpatient test results pending: None Operations & Procedures: CABGX 3 MITCHELL to LAD, SVG to OM, PDA. AVR 25mm magna ease, occlusion left atrial appendage 45mm Medtromnic clip Complications: none significant Advance Directive Documented: Advance Directive Does the Patient have an Advance Directive? No Diet: Normal diet Activity: No lifting or pushing or pulling more than 10 lbs for 8 weeks Driving: Do not drive unti you are cleared by Dr Kang at your 1 month follow up . Date you may return to work or school: N/A See your primary care physician (Rashawn Obrien MD) in 2 weeks Follow-up with: Cardiac surgery in 1 week and in 1 month. Cardiology in 4-6 weeks. Routine wound/surgical site care: Soap and water, open to air. If skin glue present, some will peeloff on its own- you may peel it off completely in 1 week. Continue to wash over it daily. Remove any Band-Aids or dressing and CHANGE daily if needed. Watch for signs of infections: including increased redness, swelling, drainage, opening of either your sternal incision or leg incision, fever or chills. If this occurs call the office number above immediately and a surgeon or PA will see you immediately. Wear your LILA stockings or HILLARY wraps during the day and remove at night. This helps to prevent tension on your incisions and prevents swelling. Weigh Yourself daily: You should SHOWER daily. Use soap and water on your incisions. DO NOT take tub baths. Medications: Prescriptions that are given without refills are only required for 30 days. Other Special Instructions: Home: Wound care/surgical site care: Soap and water, open to air: everyday and as needed Coumadin Follow Up: INR Goal 2-3 You will receive a call from the Cardiac Rehab to schedule your Consultation. If not arranged by the time of your post-op follow-up visit, please let your surgical team know and this can be arranged. If you feel suicidal or homicidal, please call the crisis hotline at [phone] ([phone]). * Pharmacy Instr - AVS* Isela Hatfield, [facility] - 02/18/2024 7:21 AM EST Warfarin dosing instructions for after discharge: You will receive a prescription for Warfarin 5 mg tablets. Please take the following doses of warfarin by mouth after Discharge: Date Dose using warfarin 5 mg Tablets Tuesday 02/20 Take 1 tablet = 5 mg Wednesday 02/21 Take 1 tablet = 5 mg Thursday 02/22 INR Check Your first INR is scheduled for February 22 at 8:50AM at the [facility]. The anticoagulation clinic pharmacist will provide you with further dosing and appointment instructions. If you have any questions regarding your anticoagulation therapy, please Contact Anticoagulation Clinic at [phone] or . Please share the following information with your provider: You were started on WARFARIN for Stroke Prevention: Atrial Fibrillation/Flutter (2 - 3). This is anEXISTING diagnosis. PLEASE DO NOT USE ELIQUIS WHILE YOU ARE ON WARFARIN. Your Anticipated Duration of Warfarin Therapy: [address] Surgery follow- up appointment will give you a specific date to switch back. Because you have been placed on a blood thinner, your therapy will need to be monitored on a regular basis. You will have your Anticoagulation Managed By: Anticoagulation Clinic . While you were in the hospital, you medication doses received and your corresponding labs were: INR Date/Time Value Ref Range Status 02/21/2024 04:39 AM 1.5 (H) 0.8 - 1.2 Final 02/20/2024 04:40 AM 1.4 (H) 0.8 - 1.2 Final 02/19/2024 05:00 AM 1.4 (H) 0.8 - 1.2 Final HGB Date/Time Value Ref Range Status 02/21/2024 04:39 AM 8.7 (L) 14.0 - 16.8 g/dL Final HCT Date/Time Value Ref Range Status 02/21/2024 04:39 AM 28.4 (L) 40.0 - 48.4 % Final PLT Date/Time Value Ref Range Status 02/21/2024 04:39 AM 192 140 - 400 K/uL Final Warfarin Administrations (last 720 hours) Date/Time Action Medication Dose 02/20/242156 Given Warfarin Sodium (Coumadin) tab 5 mg 5 mg 02/19/242156 Given Warfarin Sodium (Coumadin) tab 2.5 mg 2.5 mg 02/18/242010 Given Warfarin Sodium (Coumadin) tab 2.5 mg 2.5 mg documented in this encounter Progress Notes * Isela Hatfield RPh - 02/21/2024 7:38 AM EST PHARMACY ANTICOAGULATION WARFARIN (Coumadin) Assessment [address] [address] Name: Alexis Garcia Location: [facility] H761/A Date: 02/21/2024 Time: 7:38 AM Alexis Garcia is a 74 year old male admitted for Unstable angina (HCC). Pharmacy was consulted for warfarin dosing and monitoring. Anticoagulation Therapy Goals Stroke Prevention: Atrial Fibrillation/Flutter (2 - 3) Anticipated Duration of Therapy: 30 Days Prior to Admission Management Anticoagulation Managed By: Anticoagulation Clinic Anticoagulation Episode Summary Current INR goal: -- TTR: -- Next INR check: -- INR from last check: -- Most recent INR: 1.5 (02/21/2024) Weekly max warfarin dose: -- Target end date: 03/19/2024 INR check location: -- Preferred lab: -- Send INR reminders to: -- Indications Paroxysmal atrial fibrillation (HCC) [I48.0] S/P AVR (aortic valve replacement) [Z95.2] S/P CABG x 3 [Z95.1] Comments: -- Anticoagulation Care Providers Provider Role Specialty Phone number Haylie Lea CRNP Referring Nurse Practitioner [phone] Labs INR Date/Time Value Ref Range Status 02/21/2024 04:39 AM 1.5 (H) 0.8 - 1.2 Final 02/20/2024 04:40 AM 1.4 (H) 0.8 - 1.2 Final 02/19/2024 05:00 AM 1.4 (H) 0.8 - 1.2 Final HGB Date/Time Value Ref Range Status 02/21/2024 04:39 AM 8.7 (L) 14.0 - 16.8 g/dL Final HCT Date/Time Value Ref Range Status 02/21/2024 04:39 AM 28.4 (L) 40.0 - 48.4 % Final PLT Date/Time Value Ref Range Status 02/21/2024 04:39 AM 192 140 - 400 K/uL Final Objective Warfarin Administrations (last 720 hours) Date/Time Action Medication Dose 02/20/242156 Given Warfarin Sodium (Coumadin) tab 5 mg 5 mg 02/19/242156 Given Warfarin Sodium (Coumadin) tab 2.5 mg 2.5 mg 02/18/242010 Given Warfarin Sodium (Coumadin) tab 2.5 mg 2.5 mg Assessment & Plan Assessment Dietary Assessment: Normal/expected PO intake Today's INR : Subtherapeutic Does the patient have any medication interactions: Yes Please comment: ASA, heparin subQ Are there bleeding concerns with the patient: No Does the patient have any upcoming procedures: No Plan Warfarin Plan: Give Warfarin Specify Warfarin Dose: 5 mg Is the patient receiving a Bridging Agent: No Warfarin Patient Education : Incomplete Isela L. Brokenshire, PharmD, BCPS, BCCP, BCCCP, CACP * Isela Hatfield [facility] - 02/20/2024 11:05 AM EST PHARMACY ANTICOAGULATION WARFARIN (Coumadin) Assessment [address] [address] Name: Alexis Garcia Location: [facility] H761/A Date: 02/20/2024 Time: 11:05 AM Alexis Garcia is a 74 year old male admitted for Unstable angina (HCC). Pharmacy was consulted for warfarin dosing and monitoring. Anticoagulation Therapy Goals Stroke Prevention: Atrial Fibrillation/Flutter (2 - 3) Anticipated Duration of Therapy: 30 Days Prior to Admission Management Anticoagulation Managed By: Anticoagulation Clinic Anticoagulation Episode Summary Current INR goal: -- TTR: -- Next INR check: -- INR from last check: -- Most recent INR: 1.4 (02/20/2024) Weekly max warfarin dose: -- Target end date: 03/19/2024 INR check location: -- Preferred lab: -- Send INR reminders to: -- Indications Paroxysmal atrial fibrillation (HCC) [I48.0] S/P AVR (aortic valve replacement) [Z95.2] S/P CABG x 3 [Z95.1] Comments: -- Anticoagulation Care Providers Provider Role Specialty Phone number Haylie Lea CRNP Referring Nurse Practitioner [phone] Labs INR Date/Time Value Ref Range Status 02/20/2024 04:40 AM 1.4 (H) 0.8 - 1.2 Final 02/19/2024 05:00 AM 1.4 (H) 0.8 - 1.2 Final 02/18/2024 03:58 AM 1.5 (H) 0.8 - 1.2 Final HGB Date/Time Value Ref Range Status 02/20/2024 04:40 AM 8.8 (L) 14.0 - 16.8 g/dL Final HCT Date/Time Value Ref Range Status 02/20/2024 04:40 AM 28.6 (L) 40.0 - 48.4 % Final PLT Date/Time Value Ref Range Status 02/20/2024 04:40 AM 168 140 - 400 K/uL Final Objective Warfarin Administrations (last 720 hours) Date/Time Action Medication Dose 02/19/242156 Given Warfarin Sodium (Coumadin) tab 2.5 mg 2.5 mg 02/18/242010 Given Warfarin Sodium (Coumadin) tab 2.5 mg 2.5 mg Assessment & Plan Assessment Dietary Assessment: Normal/expected PO intake Today's INR : Subtherapeutic Does the patient have any medication interactions: Yes Please comment: ASA, Heparin SubQ Are there bleeding concerns with the patient: No Does the patient have any upcoming procedures: No Plan Warfarin Plan: Give Warfarin Specify Warfarin Dose: 5 mg Is the patient receiving a Bridging Agent: No Warfarin Patient Education : Axel Hatfield PharmD, BCPS, BCCP, BCCCP, CACP * Isela Hatfield [facility] - 02/19/2024 7:39 AM EST PHARMACY ANTICOAGULATION WARFARIN (Coumadin) Assessment [address] [address] Name: Alexis Garcia Location: [facility] H773/A Date: 02/19/2024 Time: 7:39 AM Alexis Garcia is a 74 year old male admitted for Unstable angina (HCC). Pharmacy was consulted for warfarin dosing and monitoring. Anticoagulation Therapy Goals Stroke Prevention: Atrial Fibrillation/Flutter (2 - 3) Anticipated Duration of Therapy: 30 Days Prior to Admission Management Anticoagulation Managed By: Anticoagulation Clinic Anticoagulation Episode Summary Current INR goal: -- TTR: -- Next INR check: -- INR from last check: -- Most recent INR: 1.4 (02/19/2024) Weekly max warfarin dose: -- Target end date: 03/19/2024 INR check location: -- Preferred lab: -- Send INR reminders to: -- Indications Paroxysmal atrial fibrillation (HCC) [I48.0] S/P AVR (aortic valve replacement) [Z95.2] S/P CABG x 3 [Z95.1] Comments: -- Anticoagulation Care Providers Provider Role Specialty Phone number Haylie Lea BARN MANAGER Referring Nurse Practitioner [phone] Labs INR Date/Time Value Ref Range Status 02/19/2024 05:00 AM 1.4 (H) 0.8 - 1.2 Final 02/18/2024 03:58 AM 1.5 (H) 0.8 - 1.2 Final 02/16/2024 02:24 PM 1.5 (H) 0.8 - 1.2 Final HGB Date/Time Value Ref Range Status 02/19/2024 05:00 AM 9.3 (L) 14.0 - 16.8 g/dL Final HCT Date/Time Value Ref Range Status 02/19/2024 05:00 AM 29.8 (L) 40.0 - 48.4 % Final PLT Date/Time Value Ref Range Status 02/19/2024 05:00 AM 130 (L) 140 - 400 K/uL Final Objective Warfarin Administrations (last 720 hours) Date/Time Action Medication Dose 02/18/242010 Given Warfarin Sodium (Coumadin) tab 2.5 mg 2.5 mg Assessment & Plan Assessment Dietary Assessment: Minimal/decreased PO intake Today's INR : Subtherapeutic Does the patient have any medication interactions: Yes Please comment: ASA, Heparin SubQ Are there bleeding concerns with the patient: No Does the patient have any upcoming procedures: No Plan Warfarin Plan: Give Warfarin Specify Warfarin Dose: 2.5 mg Is the patient receiving a Bridging Agent: No Warfarin Patient Education : Axel Hatfield PharmD, BCPS, BCCP, BCCCP, CACP * Isela Hatfield RP - 02/18/2024 3:11 PM EST PHARMACY ANTICOAGULATION WARFARIN (Coumadin) Assessment [facility] [address] Name: Alexis Garcia Location: [facility] H773/A Date: 02/18/2024 Time: 3:11 PM Alexis Garcia is a 74 year old male admitted for Unstable angina (HCC). Pharmacy was consulted for warfarin dosing and monitoring. Anticoagulation Therapy Goals Stroke Prevention: Atrial Fibrillation/Flutter (2 - 3) Anticipated Duration of Therapy: 30 Days Prior to Admission Management Anticoagulation Managed By: Anticoagulation Clinic Anticoagulation Episode Summary Current INR goal: -- TTR: -- Next INR check: -- INR from last check: -- Most recent INR: 1.5 (02/18/2024) Weekly max warfarin dose: -- Target end date: 03/19/2024 INR check location: -- Preferred lab: -- Send INR reminders to: -- Indications Paroxysmal atrial fibrillation (HCC) [I48.0] S/P AVR (aortic valve replacement) [Z95.2] S/P CABG x 3 [Z95.1] Comments: -- Anticoagulation Care Providers Provider Role Specialty Phone number Haylie Lea CRNP Referring Nurse Practitioner [phone] Labs INR Date/Time Value Ref Range Status 02/18/2024 03:58 AM 1.5 (H) 0.8 - 1.2 Final 02/16/2024 02:24 PM 1.5 (H) 0.8 - 1.2 Final 02/16/2024 12:21 PM 1.7 (H) 0.8 - 1.2 Final HGB Date/Time Value Ref Range Status 02/18/2024 03:58 AM 8.7 (L) 14.0 - 16.8 g/dL Final HCT Date/Time Value Ref Range Status 02/18/2024 03:58 AM 28.2 (L) 40.0 - 48.4 % Final PLT Date/Time Value Ref Range Status 02/18/2024 03:58 AM 100 (L) 140 - 400 K/uL Final Objective Warfarin Administrations (last 720 hours) None Assessment & Plan Assessment Dietary Assessment: Minimal/decreased PO intake Today's INR : Subtherapeutic Does the patient have any medication interactions: Yes Please comment: ASA, Heparin SubQ Are there bleeding concerns with the patient: No Does the patient have any upcoming procedures: No Plan Warfarin Plan: Give Warfarin Specify Warfarin Dose: 2.5 mg Is the patient receiving a Bridging Agent: No Warfarin Patient Education : Axel Hatfield PharmD, BCPS, BCCP, BCCCP, CACP * Mg June DO - 02/15/2024 6:30 PM EST PROGRESS NOTE - CARDIOLOGY [facility]-[address] [address] Name: Alexis Garcia Location: [facility] H863/A Date: 02/15/2024 Time: 6:30 PM Date of Admission: 02/15/2024 Presenting Problem: Unstable angina, aortic stenosis Interval Events: ON: No acute events Evaluated at bedside this morning. Patient denies any symptom this morning. Not experiencing chest pain, shortness of breath, palpitations, diaphoresis, abdominal pain, nausea, vomiting overnight. Objective CONSTITUTIONAL DATA / OBJECTIVE: Most Recent Vital Signs: BP: 123 mmHg/74 mmHg (02/15/24 1551) Pulse: 49 (02/15/24 155) Resp: 18 (02/15/24 155) Temp: 37.17 C (02/15/24 1505) Temp Summary: Temp Min: 36.2 C (97.1 F) Max: 37.2 C (98.9 F) SpO2: 98 % (02/15/24 155) O2 flow rate: Supplemental O2 Delivery: Room Air, None (02/15/24 155) Vital Signs Last 24 Hours: Systolic BP: Most Recent Systolic BP Av.8 mmHg Min: 111 mmHg Max: 155 mmHg Temperature: Most Recent Temperature Av.5 C Min: 36.17 C Max: 37.17 C Pulse: Pulse Av.3 Min: 49 Max: 69 Respirations: Resp Av.7 Min: 17 Max: 18 SpO2: SpO2 Av % Min: 94 % Max: 98 % Intake & Output Summary (Last 24 hours): Intake/Output Summary (Last 24 hours) at 02/15/20241829 Last data filed at 02/15/2024 1741 Gross per 24 hour Intake 669.53 ml Output 375 ml Net 294.53 ml Net IO Since Admission: 294.53 mL [02/15/24 1830] Last BM: Last Bowel Movement: 02/14/24 (per pt) (02/15/24 0752) Height & Weight: Height: 172.7 cm (5' 8") (02/13/24 2100) Weight: 95.8 kg (211 lb 3.2 oz) (02/15/24 0439) Weight change: -0.862 kg (-1 lb 14.4 oz) Body mass index is 32.11 kg/m. Physical Examination: General: Patient in no apparent distress HEENT: normocephalic, atraumatic, sclerae anicteric, EOMI Heart: regular rate and rhythm; S1 and S2 present; systolic murmur present, no JVD or hepatojugularreflux. Pulmonary: Lungs clear to auscultation bilaterally; no wheezes, rhonchi or crackles. Abdomen: Soft, non-tender, non-distended. Extremities: Trace to 1+ bilateral edema. Skin: [place], warm, no wounds or lesions present. Neuro: Answering questions promptly and appropriately. No sensory motor deficits noted on exam. Psych: Appropriate mood and affect Laboratory Values: reviewed. -- Brief labs below include the 7 most recent results over the past week. No results in the last 7 days - inpatent use only Lab results within last 7 days (see chart for full results) Units 02/15/24 0517 02/14/24 0335 SODIUM mmol/L 138 140 POTASSIUM mmol/L 4.0 3.9 CHLORIDE mmol/L 102 104 CO2 mmol/L 26 26 EGFR mL/min 78 69 BUN mg/dL 17 19 CREATININE mg/dL 1.0 1.1 GLUCOSE mg/dL 98 96 CALCIUM mg/dL 9.2 8.8 Magnesium mg/dL 2.3 -- ANION GAP mmol/L 10 10 Lab results within last 7 days (see chart for full results) Units 02/15/24 0517 02/14/24 0335 02/13/24 2034 WBC K/uL 10.63 10.75 9.38 HGB g/dL 14.4 12.8* 13.8* HCT % 47.2 42.5 44.3 PLT K/uL 187 194 194 MCV fL 89.1 88.9 87.4 No results in the last 7 days - inpatent use only Lab results within last 7 days (see chart for full results) Units 02/15/24 1636 02/15/24 0517 02/15/24 0134 02/14/24 1907 02/14/24 1109 02/14/24 0335 02/13/244 Prothrombin Time seconds -- 13.9 -- -- -- 14.3 14.0 INR -- 1.1 -- -- -- 1.1 1.1 aPTT seconds 185* -- 103* 92* 53* 48* 30 Heparin, Unfractionated IU/mL -- -- -- -- -- -- <0.10 Lab results within last 7 days (see chart for full results) Units 02/14/24 0335 Triglycerides mg/dL 134 Lab results within last 7 days (see chart for full results) Units 02/15/24 0517 Ferritin ng/mL 463* Cultures: reviewed. No results in the last 7 days - inpatent use only Recent Cultures (2 Weeks) No lab values to display. Radiographic Studies: reviewed. XR CHEST 1 VIEW Result Date: 02/15/2024 IMPRESSION No acute cardiopulmonary findings. Cardiac Imaging Studies: TTE 02/14/2024 The qualitative LV ejection fraction is 55-59% (normal). The LV wall thickness is severely increased (concentric). The right ventricular size is qualitatively normal. Image resolution does not allow for accurate measurement. The right ventricular systolic function is qualitatively normal. Moderate aortic valve stenosis is present. Mild aortic valve regurgitation is present. Cardiac Catheterization Reports: Pending catheterization today. Prior To Arrival Cardiac Medications: Eliquis 5 mg p.o. daily hydrochlorothiazide 25 mg p.o. daily losartan 100 mg p.o. daily Toprol XL 100 mg p.o. daily atorvastatin 40 mg p.o. daily Current Facility-Administered Medications: [START ON 02/16/2024] ceFAZolin in dextrose (Ancef) ivpb 2 g, 2 g, IV Piggyback, Video Effects Editor, John Wells PA-C [START ON 02/16/2024] metoprolol succinate XL (toPROL XL) tab 100 mg, 100 mg, Oral, Daily(AM), John Kang MD Allopurinol (Zyloprim) tab 300 mg, 300 mg, Oral, Daily(AM), Illar, Sharlene, DO, 300 mg at 747 aspirin chew tab 81 mg, 81 mg, Oral, Daily(AM), Illar, Sharlene, DO, 81 mg at 02/15/24 0747 atorvaSTATin (Lipitor) tab 40 mg, 40 mg, Oral, Daily(AM), Illar, Sharlene, DO, 40 mg at 02/15/24 0747 multivitamin (Mvi) 1 Tablet, 1 Tablet, Oral, Daily Noon, Bernardo Rosamaria Adlerbeth, DO, 1 Tablet at 02/15/24 1140 prednisoLONE Acetate (Pred Forte) 1 % ophthalmic suspension 1 Drop, 1 Drop, Both eyes, Daily(AM), Illar, Sharlene, DO, 1 Drop at 02/15/24 0748 hEParin 1000 UNIT/ML inj 1,200 Units, 15 Units/kg (Adjusted), IV Push, PRN, Illar, Sharlene, DO hEParin 1000 UNIT/ML inj 2,400 Units, 30 Units/kg (Adjusted), IV Push, PRN, Illar, Sharlene, DO, 2,400 Units at 02/14/24 1258 hEParin 25,000 units in 250 mL (aPTT-Cardiac) infusion, 0-30 Units/kg/hr (Adjusted), Intravenous, Titrate, Illar, Sharlene, DO, Stopped at 02/15/24 1741 Assessment & Plan Assessment and Plan: Principal Problem: Unstable angina (HCC) (POA: Unknown) Active Problems: Dyslipidemia, goal LDL below 100 (POA: Yes) Hypertrophic cardiomyopathy (HCC) (POA: Yes) Essential hypertension with goal blood pressure less than 130/80 (POA: Yes) Paroxysmal atrial fibrillation (HCC) (POA: Yes) Nonrheumatic aortic valve stenosis (POA: Yes) 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) (POA: Unknown) Aortic valve stenosis (POA: Unknown) Chest pain (POA: Unknown) POA = Present On Admission Alexis Garcia is a 74 year old male with PMHx of atrial flutter on Eliquis, hypertrophic cardiomyopathy, hypertension, hyperlipidemia who presented from [facility] for evaluation of unstable angina aortic stenosis, going for cardiac catheterization today. Unstable angina Acute atypical chest pain with cardiac risk factors and family history of heart disease. Patient needs ischemic rule out. Continue heparin GTT Aspirin 81 mg p.o. daily Atorvastatin 40 mg p.o. daily Toprol 50 mg p.o. daily Holding PERISHABLE FREIGHT INSPECTOR losartan Anticipate cardiac catheterization today History of atrial flutter on Coumadin Holding Coumadin while on heparin GTT Toprol as above Aortic stenosis, moderate Pending cardiac catheterization. We will consider possible interventions following this. Chronic Problems: Give: Continue PERISHABLE FREIGHT INSPECTOR allopurinol Hypertension: Hold PERISHABLE FREIGHT INSPECTOR HCTZ Patient discussed and seen with the tare weigher and will be seen and examined by attending physician, Rola Chavez MD during rounds. Mg June DO Cosigned by Rola Chavez MD at 02/15/2024 7:13 PM EST Associated attestation - Rola Chavez MD - 02/15/2024 7:13 PM EST I saw and evaluated the patient today. I have reviewed the resident/fellow physician note and agree. * Rosamaria Bernardo DO - 02/14/2024 5:02 PM EST PROGRESS NOTE - Cardiology [facility]-[address] [id number] Name: Alexis Garcia Location: [facility] H863/A Date: 02/14/2024 Time: 5:02 PM SUBJECTIVE: Overnight patient arrived as a transfer [facility], no acute events overnight This morning patient states he feels well overall with no complaints of chest pain or shortness of breath OBJECTIVE: Most Recent Vital Signs: BP: 124 mmHg/70 mmHg (02/14/241423) Pulse: 63 (02/14/24 08) Resp: 18 (02/14/241423) Temp: 36.67 C (02/14/241423) Temp Summary: Temp Min: 36.4 C (97.5 F) Max: 37 C (98.6 F) SpO2: 96 % (02/14/241423) O2 flow rate: Supplemental O2 Delivery: Room Air, None (02/14/241423) Vital Signs Last 24 Hours: Systolic BP: Most Recent Systolic BP Av.8 mmHg Min: 107 mmHg Max: 139 mmHg Temperature: Most Recent Temperature Av.7 C Min: 36.39 C Max: 37 C Pulse: Pulse Av.3 Min: 60 Max: 63 Respirations: Resp Av.7 Min: 16 Max: 19 SpO2: SpO2 Av.7 % Min: 95 % Max: 100 % Constitutional: no acute distress, resting comfortably in bed HEENT: NC/AT, MMM, normal tympanic membranes, neck supple, normal thyroid, PERRL, normal sclera CV: normal rate and rhythm, no murmur, gallops or rub Chest: normal respiratory effort, lungs clear to auscultation Abdomen: normal: soft, non-distended, non-tender to palpation, bowel sounds normal, no masses or organomegaly Extremities: no clubbing, cyanosis, or edema, otherwise grossly normal, warm, and dry Skin: warm, dry, intact: Neuro: alert, oriented to person, place, and time, no focal deficits Psych: appropriate mood and affect LABS: Labs reviewed as indicated below: Lab results within last 7 days (see chart for full results) Units 02/14/24 0335 SODIUM mmol/L 140 POTASSIUM mmol/L 3.9 CHLORIDE mmol/L 104 CO2 mmol/L 26 BUN mg/dL 19 CREATININE mg/dL 1.1 Lab results within last 7 days (see chart for full results) Units 02/14/24 0335 02/13/24 2034 HGB g/dL 12.8* 13.8* HCT % 42.5 44.3 WBC K/uL 10.75 9.38 PLT K/uL 194 194 Troponins at [facility]: 23--> 25--> 20 (negative as compared to their lab reference range) IMAGING: TTE Interpretation Summary The examination is adequate to evaluate the referral indication. The qualitative LV ejection fraction is 55-59% (normal). The LV wall thickness is severely increased (concentric). The right ventricular size is qualitatively normal. Image resolution does not allow for accurate measurement. The right ventricular systolic function is qualitatively normal. Moderate aortic valve stenosis is present. Mild aortic valve regurgitation is present. IMPRESSION and PLAN: Principal Problem: Unstable angina (HCC) (POA: Unknown) Active Problems: Dyslipidemia, goal LDL below 100 (POA: Yes) Hypertrophic cardiomyopathy (HCC) (POA: Yes) Essential hypertension with goal blood pressure less than 130/80 (POA: Yes) Paroxysmal atrial fibrillation (HCC) (POA: Yes) Nonrheumatic aortic valve stenosis (POA: Yes) POA = Present On Admission\\ Unstable angina History of a flutter on Coumadin (CHADS-VASc, 2) history of aortic stenosis Acute, typical chest pain, moderate risk factors, family history of heart disease, plan for ischemic rule out -continue with heparin drip, aspirin 81, atorvastatin 40, Toprol 50 -holding PERISHABLE FREIGHT INSPECTOR losartan 100 mg ahead of cardiac catheterization, resume as appropriate -plan for cardiac catheterization tomorrow -Repeat TTE (unable to obtain [place] images) better assess known aortic stenosis Chronic conditions: Gout: Continue PERISHABLE FREIGHT INSPECTOR allopurinol HTN: 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 Kathy MD, attending physician Rosamaria Bernardo DO PGY 3 Cosigned by Rola Chavez MD at 02/14/2024 5:13 PM EST Associated attestation - Rola Chavez MD - 02/14/2024 5:13 PM EST I saw and evaluated the patient today. I have reviewed the resident/fellow physician note and agree. documented in this encounter H&P Notes * Dottie Bailey PA-C - 02/16/2024 6:33 AM EST HISTORY & PHYSICAL INTERVAL NOTE [facility]-[address] [place] [id number] History and Physical Update: Name: Alexis Garcia Location: OR [facility]/OR Date: 02/16/2024 Time: 6:33 AM DATE OF HISTORY AND PHYSICAL: 02/13/24 BP: 129 mmHg/68 mmHg (02/16/24529) Pulse: 64 (02/16/24529) Resp: 19 (02/16/24529) Temp: 36.89 C (02/16/24514) Temp Summary: Temp Min: 36.4 C (97.5 F) Max: 37.2 C (98.9 F) SpO2: 97 % (02/16/24529) O2 flow rate: Supplemental O2 Delivery: Room Air, None (02/16/24539) Does patient take a beta kelsi? Yes this morning Did patient stop anticoagulants? None Heart Exam: regular rate and rhythm Lung Exam: clear to auscultation bilaterally Other Pertinent Physical Exam: none I have reviewed the H&P previously performed and examined the patient today. There are no new findings noted. Cosigned by Bill Kang MD at 02/17/2024 11:40 AM EST * Sharlene Parr DO - 02/13/2024 7:45 PM EST Images from the original note were not included. GENERAL HISTORY AND PHYSICAL EXAMINATION - CARDIOLOGY [address] [address] Name: Alexis Garcia Location: [facility] H863/A Date: 02/14/2024 Time: 3:30 AM Date of Admission: 02/14/2024 Presenting Problem: chest pain HPI: Patient is a 74 year old male with PMHx significant for Aflutter on eliquis and metoprolol, hypertrophic cardiomyopathy, HTN, gout, HLD, aortic stenosis that presented from [facility] for evaluationof unstable angina and aortic stenosis. He states that on Thursday while hunting he noted intermittent periods of substernal chest pain that he describes as a pressure with a "pins and needles" sensation radiating up his neck. He notes associated shortness of breath. Relieved by rest. Denies any associated lightheadedness, syncope. He states that after he got home Thursday night his symptoms fully resolved with rest so he went hunting again on Thursday and noticed the same symptoms with increased severity. He states that he had to quit hunting sooner than he planned and decided to seek evaluation in the ED. At [facility], patient was found to have trop 23->25->20 which were reportedly negative per their lab reference range with reported nonspecific EKG changes (EKG not included with patient's chart for review). Heparin was started and patient was ultimately transferred here for further evaluation. On arrival patient states that he has no chest pain or shortness of breath. He states that he feelswell. Denies any recent fevers, chills, cough, congestion, sore throat, nausea, vomiting, abdominalpain, diarrhea, constipation, hematochezia, melena, dysuria, hematuria, lower extremity pain or swelling. Denies history of stroke, blood clot, cardiac stent, vascular stent, diabetes, COPD. Patient wants to be FULL CODE at this time. Wants his to make decisions for him in the settingthat he is not able to make decisions for himself. Lives with his . At baseline ambulates independently. Reports former tobacco use. Reports a few drinks per week alcohol use. 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, [place] Other Vitamin D deficiency 01/06/2013 PAST SURGICAL HISTORY: Past Surgical History: Procedure Laterality Date COLONOSCOPY 02/2013 repeat 5 yrs COLONOSCOPY W/ LESION REMOVAL, SNARE 03/06/2008 adenomaotus, repeat in 5 years COLONOSCOPY, DIAGNOSTIC (RECTUM) 07/01/2017 adenomatous polyps, diverticulosis, repeat 5 yrs/COLONOSCOPY FLEXIBLE PROXIMAL DIAGNOSTIC performedby Sid Lee MD at ENDOSCOPY [facility] MISCELLANEOUS ORDER left ear TM patch MISCELLANEOUS ORDER 1993 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 per Dr Lu at [facility] [place] KERATOPLASTY ENDOTHELIAL Right 12/2018 VITRECTOMY/LASER COAGULATION Left 01/13/2021 VITRECTOMY MECHANICAL PARS PLANA APPROACH WITH ENDOLASER PANRETINAL performed by Dylan Ladd DO at OR [facility] FAMILY HISTORY: Family History Problem Relation Name Age of Onset Heart Disorder Mother DC Cancer Father pancreas Other (Other) Other pt denies hx of skin cancer for parents SOCIAL HISTORY: Social History Tobacco Use Smoking status: Former Current packs/day: 0.00 Types: Cigarettes Start date: 03/09/1965 Quit date: 03/09/1975 Years since quittin.9 Smokeless tobacco: Never Tobacco comments: 3-4 cigarettes Vaping Use Vaping status: Never Used Substance Use Topics Alcohol use: Yes Alcohol/week: 0.0 standard drinks of alcohol Comment: 4-5 beers on Sat and Sun Drug use: No PRIOR TO ADMISSION MEDS: Current Outpatient Medications Medication Instructions Allopurinol 300 MG Oral Tablet (Zyloprim) TAKE 1 TABLET BY MOUTH ONCE DAILY Apixaban (ELIQUIS) 5 mg, Oral, BID (.AM/PM), Stop warfarin Ascorbic Acid (VITAMIN C) 500 MG CAPS Take by mouth. atorvaSTATin (LIPITOR) 40 mg, Oral, Daily(AM) hydroCHLOROthiazide (HYDRODIURIL) 25 mg, Oral, Daily(AM) losartan (COZAAR) 100 mg, Oral, Daily(AM), In the morning. metoprolol succinate XL (TOPROL XL) 100 mg, Oral, Daily(AM) Multiple Vitamins-Minerals (CENTRUM) Tablet 1 Tablet, Daily(AM) prednisoLONE Acetate 1 % Ophthalmic Suspension (Pred Forte) 1 Drop, Both eyes, Daily(AM) Sildenafil Citrate (VIAGRA) 100 mg, Oral, DAILY PRN, 1-4 hours before intercourse, no more than 1 dose in 24 hours. Sildenafil Citrate 100 mg, Oral, DAILY PRN Zoster Vac Recomb Adjuvanted 50 MCG/0.5ML Intramuscular Suspension Reconstituted (SHINGRIX) Inject 0.5 mL into a large muscle now and repeat dose in 60 to 180 days ALLERGIES: Patient has no known allergies. Review of Systems: All systems were reviewed and documented in the HPI, otherwise negative. Objective CONSTITUTIONAL DATA / OBJECTIVE: Vital Signs (Most Recent): Blood Pressure: 124/67 mmHg Last 12H: Most Recent Systolic BP Av mmHg Min: 121 mmHg Max: 139 mmHg Pulse: 60 Last 12H: Pulse Av.7 Min: 60 Max: 62 Temperature: 36.8 C (98.2 F) Last 12H: Most Recent Temperature Av.9 C Min: 36.78 C Max: 37 C Respiratory Rate: 16 O2 Saturation: 100 % Vital Signs (Last 24 Hours): Pulse Av.7 Min: 60 Max: 62 No data recorded Most Recent Systolic BP Av mmHg Min: 121 mmHg Max: 139 mmHg Most Recent Diastolic BP Av mmHg Min: 57 mmHg Max: 68 mmHg Resp Av Min: 16 Max: 18 Most Recent Temperature Av.9 C Min: 36.78 C Max: 37 C SpO2 Av % Min: 95 % Max: 100 % Intake & Output Summary (Last 24 hours): No intake or output data in the 24 hours ending 02/14/24 0330 Height & Weight: Height: 172.7 cm (5' 8") (02/13/24 2100) Weight: 96.7 kg (213 lb 1.6 oz) (02/13/24 184) Weight change: Body mass index is 32.4 kg/m. Physical Examination: General: Middle aged male sitting up at the bedside in no apparent distress. HEENT: normocephalic, atraumatic, pupils equal and round, mucous membranes pink and moist Heart: irregular rhythm, 2+ radial pulses bilaterally Pulmonary: Lungs clear to auscultation bilaterally; no wheezes, rhonchi or crackles. Abdomen: Nontender to palpation. Normal bowel sounds and no rebound or guarding. MSK: Patient able to ambulate; Gross motor function intact. Extremities: No pitting edema present at lower extremity bilaterally. Skin: Warm and dry Neuro: AAOx3. No gross motor or sensory deficits. Vascular: Lower extremities somewhat cool compared to upper; chronic per patient Psych: Appropriate mood and affect. Peripheral Line Right Arm (Active) Number of days: 1 Laboratory Values: reviewed. -- Brief labs below include the 7 most recent results over the past week. Blood Gas: No results in the last 7 days - inpatent use only Chemistry Panel: No results in the last 7 days - inpatent use only Complete Blood Count: Lab results within last 7 days (see chart for full results) Units 02/13/24 2034 WBC K/uL 9.38 HGB g/dL 13.8* HCT % 44.3 PLT K/uL 194 MCV fL 87.4 Cardiac Studies: No results in the last 7 days - inpatent use only Coagulation Studies: Lab results within last 7 days (see chart for full results) Units 02/13/24 2034 Prothrombin Time seconds 14.0 INR 1.1 aPTT seconds 30 Heparin, Unfractionated IU/mL <0.10 Liver Function Panel: No results in the last 7 days - inpatent use only Infectious Studies: No results in the last 7 days - inpatent use only Cultures: reviewed. No results in the last 7 days - inpatent use only Recent Cultures (2 Weeks) No lab values to display. Radiographic Studies (last 72 hours): reviewed. No imaging results in the last 72 hours Cardiac Studies: Echo from 02/10/24 EKG on arrival showing atrial flutter rate of [address] T wave abnormalities in V1-V3 that does not appear significantly different from previous EKGs. Assessment & Plan Assessment and Plan: Principal Problem: Unstable angina (HCC) (POA: Unknown) Active Problems: Dyslipidemia, goal LDL below 100 (POA: Yes) Hypertrophic cardiomyopathy (HCC) (POA: Yes) Essential hypertension with goal blood pressure less than 130/80 (POA: Yes) Paroxysmal atrial fibrillation (HCC) (POA: Yes) Nonrheumatic aortic valve stenosis (POA: Yes) POA = Present On Admission Alexis Garcia is a 74 year old male with PMHx as above who is admitted for unstable angina. Unstable angina Atrial flutter Hypertrophic cardiomyopathy Aortic stenosis HTN Presented with symptoms of chest pressure/pain with radiation to neck, jaw that is precipitated by exertion and improves with rest. EKG without significant ST elevations or depressions. Troponin T 23-25-20 Anticoagulation: Continue Heparin gtt Antiplatelets: Continue asa 81 daily Beta blockers: Continue Metoprolol succinate ER 50mg qam which is a reduced dose of his job captain med given his normotensive bp and heart rate in the 60s on arrival ACEi/ARB: Will hold job captain losartan for now High-intensity statin: Continue Atorvastatin 40mg Will check A1c and lipid panel. Continue to monitor on telemetry. Tentative plan for cardiac catheterization on Thursday Chronic Problems: Gout: Continue PERISHABLE FREIGHT INSPECTOR allopurinol HTN: hold job captain hydrochlorothiazide Misc: Diet: heart healthy VTE Prophylaxis: therapeutic anticoagulation Code Status: FULL LINES / DRAINS / TUBES: LINES ALL Duration Peripheral Line Right Arm 1 day List of services consulted/following: None Patient discussed with Soaker Helper Dr. Braden and will be seen and examined by attending physician, Rola Chavez MD Cosigned by Rola Chavez MD at 02/14/2024 1:24 PM EST Associated attestation - Rola Chavez MD - 02/14/2024 1:24 PM EST I saw and evaluated the patient 02/13/2024. I have reviewed the resident/fellow physician note and agree.This is late attestation documented in this encounter Procedure Notes * Keith Alexis MD - 02/16/2024 3:02 PM ESTAssociated Order(s): EKG REASON FOR STUDY: POSTTOP CONCLUSIONS: Sinus rhythm with 1st degree AV block with Premature supraventricular complexes ST & T wave abnormality, consider inferior ischemia ST & T wave abnormality, consider anterolateral ischemia Prolonged QT interval or tu fusion, consider myocardial disease, electrolyte imbalance, or drug effects Abnormal ECG When compared with ECG of 16-Feb-2024 14:12, (unconfirmed) Sinus rhythm has replaced Electronic pacemaker detected Ventricular Rate: 65 Atrial Rate: 65 [place] Interval: 256 QRS Duration: 80 QT/QTc: 480/499 ms P-R-T [place]: 88 : 66 : 195 degrees * Keith Alexis MD - 02/16/2024 2:12 PM ESTAssociated Order(s): EKG REASON FOR STUDY: Immediately Post-op;Status post surgery CONCLUSIONS: Ventricular-paced rhythm Abnormal ECG When compared with ECG of 13-Feb-2024 19:40, (unconfirmed) 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 Atrial fibrillation Ventricular Rate: 80 Atrial Rate: 83 QRS Duration: 170 QT/QTc: 498/574 ms P-R-T [place]: 0 : -55 : 118 degrees * Jordana Celestin DO - 02/15/2024 9:27 AM EST [facility] [address] [facility] [id number] CARDIAC POTTERY DECORATOR BRIEF PROCEDURE NOTE Name: Alexis Garcia Date: 02/15/2024 Time: 9:27 AM Location: CARDIAC LABS [facility] Date of Procedure: 02/15/2024 Pre-op Diagnosis: Acute coronary syndrome Post-op Diagnosis: Coronary artery disease Procedure: Coronary angiography Cyber Crime Investigator: Dr. Herbert Fuel Yard Operator(s): Dr. Celestin Anesthesia: Monitored local anesthesia with sedation Additional Findings: Coronary disease - hemodynamically significant- MVCAD [id number] with severe calcific disease (Berger 1-1-1). There was significant dampening every time we engaged the LMCA and we were unable to pass an IVUS wire into the LAD mRCA 95% stenosis followed by distal RCA 70% stenosis Access: Right radial Hemostasis: TR Band Complications: none Condition of patient: Good Post Sedation Evaluation: Cardiovascular status: acceptable, BP returned to baseline, and hemodynamically stable Level of consciousness: awake and alert Airway patency: patent Distress - NAD Hydration status - well hydrated Nausea/vomiting - not present Recommendations: CTVS consult for CABG evaluation Cosigned by Kateryna Herbert MD at 02/15/2024 10:52 AM EST Associated attestation - Kateyrna Herbert MD - 02/15/2024 10:52 AM EST A procedure was performed. I was present for entire procedure. I agree with the resident/fellow physician note. documented in this encounter Consult Notes * Isela Hatfield [facility] - 02/21/2024 9:46 AM ESTAssociated Order(s): ANTI- COAGULATION CONSULT IP PHARMACY MEDICATION TEACHING CONSULT WARFARIN [address] [address] Name: Alexis Garcia Location: [facility] [id number] Date: 02/21/2024 Time: 9:43 AM Requesting Service: CT Surgery Reason for Warfarin Consult: AF (previously on Eliquis) Patient Active Problem List Diagnosis Gout History [...] Unstable angina (HCC) 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) Aortic valve stenosis Chest pain S/P AVR (aortic valve replacement) S/P CABG x 3 Family member(s) present: n/a Patient agreed to allow visitors to attend teaching, if present. Teaching points covered with patient and/or family: Route, Dosage Form and Schedule (Including importance of taking medication as instructed), Medication Intended Use/Action, Precautions to be Observed while using this Medication, Commonly Encountered Adverse Effects (Including risk of bleeding andpotential signs and symptoms), Methods for Self-Monitoring, Laboratory Monitoring (Including compliance with INR monitoring), Potential Drug Interactions (Including medications and dietary changes that potentially affect the INR and interactions with [id number] medications), Therapeutic Contraindications, Potential Food Interactions (Including information about a consistent intake of vitamin K containing foods and the importance of notifying health care provider if any significant changesin their diet), Designated Handout(s) Provided, Follow-up Monitoring (Including review of plans forpost-discharge monitoring and follow-up), Prescription Refill Information, Action for a Missed Dose, and Patient Specific Information Written documentation regarding all of the teaching points was provided to the patient and/or family members present. Patient accepted Coumadin education booklet and/or Clinical Pharmacology warfarin patient educationsheet. Assessment of teaching effectiveness: Moderate - Provided patient with warfarin educational information in AVS. Patient remembers that he was on warfarin 5 mg tablets prior to starting Eliquis. Does remember INR checks and was previously scheduled at [facility]. Patient counseled to NOT use ELiquisfor the next 30 days while on warfarin. Counseled patient on the dietary interaction with Vitamin K containing foods and to maintain a moderate consistent diet. Patient now knows to avoid liver and related products. Patient aware to avoid NSAIDs (previously used nothing) and use only APAP as the OTC medication of choice. Patient denies herbal medication usage, but does take MVI, Vit C, and Vit D Patient admits alcohol usage of 1-2 beers/daily prior to surgery, does not plan to drink for the next 30 days while on warfarin. Patient unable to get Bedside Rx medication delivery as they are closed today. Patient with no further medication related questions Patient is expecting follow up with [facility] on Thursday 02/22. Plan if patient encounters questions later: Contact Anticoagulation Clinic at [phone] or Length of teaching: Intermediate (15 to 30 minutes) Isela Hatfield PharmD, BCPS, BCCP, BCCCP, CACP Teaching completed according to pharmacy teaching standard 508. * Venkat Moraes PT - 02/18/2024 1:28 PM EST GENERAL OUT OF BED EVALUATION - Physical Therapy [address] [address] Name: Alexis Garcia Location: [facility] [id number] Date: 02/18/2024 Time: 1328 Alexis Garcia is a/an 74 year old male. Patient Status: Inpatient Insurance: Payor: MEDICARE Plan: MEDICARE A AND B Product Type: *No Product type* Payor: AARP Plan: AARP Product Type: *No Product type* Patient Seen: at bedside, nursing cleared patient for therapy Patient Identified By: Name, ID Band and Date Diagnosis: s/p CABG (02/18/241327) Status of treatment: OOB evaluation completed (02/18/241327) Orders: PT evaluation and treatment;OOB (02/18/241327) Weight Bearing Status: Weight bearing as tolerated (02/18/241327) Precautions: Falls;Safety;Sternal;Robert;Cardiac;Central line;Oxygen (02/18/241327) Total Treatment Time--free text: 11 (02/18/241327) Past Medical History: Past Medical History: Diagnosis Date Benign neoplasm of colon 03/06/2008 adenomatous/repeat colonoscopy in 5 yrs Deviated nasal septum 01/22/2009 Dyslipidemia, goal LDL below 100 10/01/2010 Gout 05/27/2007 Hypertrophic obstructive cardiomyopathy(425.11) 09/19/2011 HYPERTROPHIC OBSTRUCTIVE CARDIOMYOPATHY(aka CARDIOMYOPATHY) 09/25/2003 Left retinal detachment 01/11/2021 macula off, Morphea Other Vitamin D deficiency 01/06/2013 Past Surgical History: Past Surgical History: Procedure Laterality Date CABG, ARTERIAL, SINGLE N/A 02/16/2024 CORONARY ARTERY BYPASS GRAFT USING ARTERY 1 GRAFT performed by Bill Kang MD at [facility] CABG, ARTERY-VEIN, TWO N/A 02/16/2024 CORONARY ARTERY BYPASS GRAFT ARTERIAL AND VENOUS 2 GRAFTS performed by Bill Kang MD at OR [facility] COLONOSCOPY 02/2013 repeat 5 yrs COLONOSCOPY W/ LESION REMOVAL, SNARE 03/06/2008 adenomaotus, repeat in 5 years COLONOSCOPY, DIAGNOSTIC (RECTUM) 07/01/2017 adenomatous polyps, diverticulosis, repeat 5 yrs/COLONOSCOPY FLEXIBLE PROXIMAL DIAGNOSTIC performedby Sid Lee MD at ENDOSCOPY [facility] ENDO,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 Right 02/16/2024 ENDOSCOPY VIDEO ASSISTED HARVEST VEIN performed by Bill Kang MD at OR [facility] EXCLUSION LEFT ATRIAL APPENDAGE, OPEN, PERFORMED AT TIME OF OTHER SIBLEY OR THORA PROC, ANY METHOD N/A 02/16/2024 EXCLUSION OF LEFT ATRIAL APPENDAGE, OPEN, PERFORMED AT THE TIME OF OTHER STERNOTOMY OR THORACOTOMY PROCEDURE(S), ANY METHOD performed by Bill Kang MD at [facility] MISCELLANEOUS ORDER left ear TM patch MISCELLANEOUS ORDER 1993 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 per Dr Lu at [facility] [place] KERATOPLASTY ENDOTHELIAL Right 12/2018 REPLACEMENT AORTIC VALVE, BYPASS WITH PROSTHETIC VALVE N/A 02/16/2024 WITH REPLACEMENT AORTIC VALVE performed by Bill Kang MD at [facility] VITRECTOMY/LASER COAGULATION Left 01/13/2021 VITRECTOMY MECHANICAL PARS PLANA APPROACH WITH ENDOLASER PANRETINAL performed by Dylan Ladd DO at OR [facility] Subjective: Pt awake in chair, agreeable to PT. Observations Consciousness: Alert (02/18/241327) Orientation: Oriented times 4 (02/18/241327) Psychosocial: Patient can communicate basic needs;Patient can converse in a social setting (02/18/241327) Sitting Posture: Forward head;Rounded shoulders (02/18/241327) Standing Posture: Forward head;Rounded shoulders (02/18/241327) Pain: Patient has complaints of pain. Pain located at incision site, rated 3/10. Transfers Sit-Stand: Contact Guard (02/18/241327) Stand-Sit: Contact Guard (02/18/241327) Ambulation: Distance ambulated (feet): 75 Assistive Device: Rolling walker Assist: Contact Guard Balance Sit (Static): Fair (02/18/241327) Sit (Dynamic): Fair (02/18/241327) Stand (Static): (Fair -) (02/18/241327) Stand (Dynamic): (Fair -) (02/18/241327) Patient and or Family Goal(s): to get well and to return home Patient Education Review of Precautions: Safety;Fall;Sternal (02/18/241327) Safety Awareness: Patient verbalizes insight of current deficits;Patient demonstrates carryover of insight during functional tasks;Patient can communicate basic needs (02/18/241327) Preferred learning method: Combination (02/18/241327) Barriers to learning: None (02/18/241327) Method of Education: Verbalized to patient;Patient demonstrated task (02/18/241327) Topic of Education: Safety with mobility, Goals/plan of care, and Fall prevention Method of Education: Verbal discussion and explanation provided to pt: verbalized understanding andor agreement of this information and demonstrated the exercise and or task Treatment Provided: Gait Training 11 minutes: gait training with rolling walker Alarm Status Patient positioned in: Chair (02/18/241327) With: Call lopez in reach (no alarms present upon entering) (02/18/241327) Goals: Demonstrate Bed Mobility with: modified independent Demonstrate Transfers with: modified independent Demonstrate Ambulation: least restrictive device, 250 ft with modified independent Demonstrate Stairclimbing: Number of steps: 3 and Level of Assistance: modified independent Increase Strength of: B/L LE by 1/2-1 muscle grade Increase dynamic standing balance to: fair + Increase Safety: with all functional mobility Time Frame: 8 visits Assessment: Pt is a 74 year old male presenting s/p CABG. Pt alert and oriented x4, following all commands throughout session. Reviewed sternal precautions prior to mobility in which pt verbalized understanding and agreement. Pt performing all mobility with contact guard for safety during session. Pt ambulating into esparza with device, demonstrating decreased step length/height. Ambulation distancelimited by fatigue/shortness of breath though O2 remaining >90% throughout session. Please consider home with post-acute care services which may include home health or outpatient therapy. The level of care will be determined in collaboration with the patient, family/caregiver and care team members. All needs met. Deficits requiring P.T. treatment needs: Safety;Mobility;Balance;Weakness;Endurance;Lower extremitystrength (02/18/241327) Equipment Needs: Equipment needs: Rolling walker (02/18/241327) Treatment Plan: Bed mobility training, Transfer training, Gait training, Elevation training, Strengthening exercises: B/L LE, Balance activities, and Educate on safety with functional mobility Anticipated Frequency (on eval): 1 to 3 times per week (02/18/241327) AM PAC Score with Stairs: 18 A portion of this AM-PAC assessment not scored based on functional assessment; rather clinical decision making utilized based on current findings and/or prior level of function. Please refer to future AM-PAC calculations of functional ability as they become available. * Latisha Chaidez, OTR/L - 02/18/2024 1:17 PM EST GENERAL OOB EVALUATION - Occupational Therapy [address] [address] Name: Alexis Garcia Location: [facility] [id number] Date: 02/18/2024 Time: 13:17 PM Alexis Garcia is a 74 year old male. Patient Status: Inpatient Insurance: Payor: MEDICARE Plan: MEDICARE A AND B Product Type: *No Product type* Payor: AARP Plan: AARP Product Type: *No Product type* Patient Seen: at bedside, nursing cleared patient for therapy Patient Identified By: Name, ID Band and Date Diagnosis: s/p CABG x 3, AVR (02/18/241316) Status of treatment: OOB evaluation completed (02/18/241316) Orders: OT evaluation and treatment (02/18/241316) Weight Bearing Status: Weight bearing as tolerated (02/18/241316) Precautions: Cardiac;Falls;Safety;Skin;Sternal;Robert;Central line;Oxygen (02/18/241316) Total Treatment Time: 11 (02/18/241316) Past Medical History: Past Medical History: Diagnosis Date Benign neoplasm of colon 03/06/2008 adenomatous/repeat colonoscopy in 5 yrs Deviated nasal septum 01/22/2009 Dyslipidemia, goal LDL below 100 10/01/2010 Gout 05/27/2007 Hypertrophic obstructive cardiomyopathy(425.11) 09/19/2011 HYPERTROPHIC OBSTRUCTIVE CARDIOMYOPATHY(aka CARDIOMYOPATHY) 09/25/2003 Left retinal detachment 01/11/2021 macula off, Morphea Other Vitamin D deficiency 01/06/2013 Past Surgical History: Past Surgical History: Procedure Laterality Date CABG, ARTERIAL, SINGLE N/A 02/16/2024 CORONARY ARTERY BYPASS GRAFT USING ARTERY 1 GRAFT performed by Bill Kang MD at [facility] CABG, ARTERY-VEIN, TWO N/A 02/16/2024 CORONARY ARTERY BYPASS GRAFT ARTERIAL AND VENOUS 2 GRAFTS performed by Bill Kang MD at [facility] COLONOSCOPY 02/2013 repeat 5 yrs COLONOSCOPY W/ LESION REMOVAL, SNARE 03/06/2008 adenomaotus, repeat in 5 years COLONOSCOPY, DIAGNOSTIC (RECTUM) 07/01/2017 adenomatous polyps, diverticulosis, repeat 5 yrs/COLONOSCOPY FLEXIBLE PROXIMAL DIAGNOSTIC performedby Sid Lee MD at ENDOSCOPY [facility] ENDO,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 Right 02/16/2024 ENDOSCOPY VIDEO ASSISTED HARVEST VEIN performed by Bill Kang MD at OR [facility] EXCLUSION LEFT ATRIAL APPENDAGE, OPEN, PERFORMED AT TIME OF OTHER SIBLEY OR THORA PROC, ANY METHOD N/A 02/16/2024 EXCLUSION OF LEFT ATRIAL APPENDAGE, OPEN, PERFORMED AT THE TIME OF OTHER STERNOTOMY OR THORACOTOMY PROCEDURE(S), ANY METHOD performed by Bill Kang MD at OR [facility] MISCELLANEOUS ORDER left ear TM patch MISCELLANEOUS ORDER 1993 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 per Dr Lu at [facility] [place] KERATOPLAST[place] ENDOTHELIAL Right 12/2018 REPLACEMENT AORTIC VALVE, BYPASS WITH PROSTHETIC VALVE N/A 02/16/2024 WITH REPLACEMENT AORTIC VALVE performed by Bill Kang MD at [facility] VITRECTOMY/LASER COAGULATION Left 01/13/2021 VITRECTOMY MECHANICAL PARS PLANA APPROACH WITH ENDOLASER PANRETINAL performed by Dylan Ladd DO at OR [facility] Social History/Disposition Lives with: Spouse (02/18/241316) Assistance available: Yes (02/18/241316) Dwelling type: Single story home (02/18/241316) Entry steps: 3 (02/18/241316) Inside steps: None (02/18/241316) Bedroom location: 1st floor (02/18/241316) Bath location: 1st floor full bath (02/18/241316) Prior Level of Function Reported by: Patient (02/18/241316) Ambulation: Ambulatory without device (02/18/241316) Grooming: Independent (02/18/241316) Bathing: Independent (02/18/241316) Dressing: Independent (02/18/241316) Feeding: Independent (02/18/241316) Toileting: Independent (02/18/241316) Meal Prep: Independent (02/18/241316) Homemaking: Independent (02/18/241316) Shopping: Independent (02/18/241316) Medication Management: Independent (02/18/241316) Money Management: Independent (02/18/241316) Driving: Yes (02/18/241316) Durable Medical Equipment at home: No device (02/18/241316) Subjective: Pt was noted to be seated OOB in chair upon arrival and agreeable to therapy services. Pain: Patient has complaints of pain. Pain located incisional; rated 3/10. RN aware. Observations Consciousness: Alert (02/18/241316) Orientation: Oriented times 4 (02/18/241316) Psychosocial: Patient can communicate basic needs;Patient can converse in a social setting (02/18/241316) Sitting posture: Forward head;Rounded shoulders (02/18/241316) Standing posture: Forward head;Rounded shoulders (02/18/241316) Safety awareness: The Patient verbalizes insight of current deficits.;The Patient can communicate basic needs.;Needs cueing supervision. (02/18/241316) Other Findings Endurance: Fair (02/18/241316) Light touch sensation: LUE;RUE;Intact (02/18/241316) Coordination: LUE;RUE;Gross motor;Fine motor;Intact (02/18/241316) Current Functional Status: Bilateral Upper Extremity Range of Motion: WFL (02/17/24 1435) Strength Assessment: (at least 3/5 throughout (formal MMT not assessed due to sternal precautions))(02/17/24 1435) Self Care Feeding: Supervision (Please comment) (to eat itailian ice on lunch tray) (02/18/241316) Dressing Upper Body: Minimal Assistance (to jose gown) (02/18/241316) Lower Body: Moderate Assistance (to doff/jose socks) (02/18/241316) Functional Ambulation Assistive Device: Rolling walker (02/18/241316) Distance in feet:: 75 (02/18/241316) Level of Assistance: Contact Guard (02/18/241316) OT Transfers Sit-Stand: Contact Guard (from chair) (02/18/241316) Stand-Sit: Contact Guard (to chair) (02/18/241316) Balance Sit (Static): Fair (02/18/241316) Sit (Dynamic): Fair (02/18/241316) Stand (Static): Fair (-) (02/18/241316) Stand (Dynamic): Fair (-) (02/18/241316) Alarm Status Patient positioned in: Chair (02/18/241316) With: (no alarm in use upon arrival; RN aware) (02/18/241316) Patient and Family Goals: to get well and to return home Patient Education Education Topic: Role of OT;Plan of care goals (02/18/241316) Review of Precautions: Safety;Skin;Cardiac;Fall;Sternal (02/18/241316) Method of Education: Verbalized to patient (02/18/241316) Education Provided to: Patient (02/18/241316) Response to Education: Receptive and agreeable to education (02/18/241316) Barriers to learning: Medical status (02/18/241316) Preferred learning method: Combination (02/18/241316) Treatment Provided: Therapeutic Activity: 11 minutes Deficits Requiring O.T. Treatment: Deficits requiring O.T. treatment needs: ADL/self-care;Balance;Endurance;Functional mobility;Safety;Upper extremity strength;Weakness (02/18/241316) Goals: Demonstrates Self-care at: Feeding: Modified Independent Grooming: Modified Independent Toileting: Modified Independent UE dressing: Modified Independent UE bathing: Modified Independent LE dressing: Modified Independent LE bathing: Modified Independent Demonstrates Bed Mobility at: Supine-Sit: Modified Independent Sit-Supine: Modified Independent Demonstrates transfers at: Sit-Stand: Modified Independent Stand-Sit: Modified Independent Bed-Chair: Modified Independent Toilet: Modified Independent Shower/Tub: Modified Independent Demonstrates functional ambulation at: Assistive device: appropriate device as needed Level of Assistance: Modified Independent Balance: Static Sitting: Fair+ Dynamic Sitting: Fair+ Static Standing: Fair+ Dynamic Standing: Fair+ Strength/ROM: Increase BUE strength 1/2 muscle grade Endurance: Increase endurance to 30/30 minutes in order to improve participation in ADL tasks and general mobility Safety awareness/Cognition: Increase safety awareness during functional mobility Precautions: Adhere to sternal precautions throughout participation in ADL tasks and general mobility Goal Time Frame: 8 visits Assessment: Pt was admitted to [facility] for the above dx. Pt was pleasant and cooperative during his OOBOT evaluation this date. Upon arrival, pt was seated OOB in chair and agreeable to therapy services. Prior to mobility, pt re- educated on sternal precautions, with good return verbal understanding noted. Upon exam, pt performed UE dressing task with min A secondary to lines and LE dressing task with mod A due to increased incisional pain with forward functional reach towards b/l lower extremities; pt observed to be able to bring extremities into figure four position. Sit<>stand transfer and ambulation were completed with contact guard assist for safety secondary to slight unsteadiness. Pt ambulated 75 [address] hallway with use of a rolling walker. Ambulation currently limited due to decreased endurance/slight SOB. Oxygen saturation noted to be >90%; educated pt on deep breathing techniques, pt receptive. Following session, pt was noted to be seated in chair with call lopez in reach. All needs met. Currently, pt presents with difficulty in ADL completion and general mobility secondary to decreased strength, balance, endurance, safety awareness, and overall current medical status. Pt would benefit from acute OT services to increase his independence with ADL tasks and general mobility. In regard to discharge, please consider home with post-acute care services which may include home health or outpatient therapy. The level of care will be determined in collaboration with the patient, family/caregiver and care team members. Treatment Plan: Accuracy with Precautions, Energy Conservation, Safety, Bed mobility training, Functional Ambulation, Transfer training, ROM exercises, Upper extremity strengthening, Balance activities, ADL training, Endurance, and Educate on safety with ADLs and mobility. Anticipated Frequency (on eval): 1 to 3 times per week (02/18/241316) AM-PAC Help From Another Person Eating Meals: A little (02/18/241316) Help From Another Person Taking Care of Personal Grooming: A little (02/18/241316) Help From Another Person To Put On/Take Off Upper Body Clothing: A little (02/18/241316) Help From Another Person To Put On/Take Off Lower Body Clothing: A lot (02/18/241316) Help From Another Person Toileting: A lot (02/18/241316) Help From Another Person Bathing: A little (02/18/241316) OT AM-PAC Score: 16 (02/18/241316) OT AM-PAC t-Scale Score: 35.96 (02/18/241316) HLM (Highest Level of Mobility) Goal: Level 6 walk 10 steps or more (02/18/24 1328) A portion of this AM-PAC assessment not scored based on functional assessment; rather clinical decision making utilized based on current findings and/or prior level of function. Please refer to future AM-PAC calculations of functional ability as they become available. * Venkat Moraes, PT - 02/17/2024 2:43 PM ESTAssociated Order(s): ADULT PHYSICAL THERAPY CONSULT IP GENERAL BEDREST EVALUATION - Physical Therapy [address] [address] Name: Alexis Garcia Location: [facility] [id number] Date: 02/17/2024 Time: 1442 Alexis Garcia is a/an 74 year old male. Patient Status: Inpatient Insurance: Payor: MEDICARE Plan: MEDICARE A AND B Product Type: *No Product type* Payor: AARP Plan: AARP Product Type: *No Product type* Patient Seen: at bedside, nursing cleared patient for therapy Patient Identified By: Name, ID Band and Date Diagnosis: s/p CABG (02/17/241442) Status of treatment: Bedrest evaluation completed (02/17/241442) Orders: PT evaluation and treatment;OOB (02/17/241442) Weight Bearing Status: Weight bearing as tolerated (02/17/241442) Precautions: Alarms;Falls;Safety;Sternal;Cardiac;Central line;Chest tube;Robert;Oxygen;A-line;Stella line (02/17/241442) Total Treatment Time--free text: 8 (02/17/241442) Past Medical History: Past Medical History: Diagnosis Date Benign neoplasm of colon 03/06/2008 adenomatous/repeat colonoscopy in 5 yrs Deviated nasal septum 01/22/2009 Dyslipidemia, goal LDL below 100 10/01/2010 Gout 05/27/2007 Hypertrophic obstructive cardiomyopathy(425.11) 09/19/2011 HYPERTROPHIC OBSTRUCTIVE CARDIOMYOPATHY(aka CARDIOMYOPATHY) 09/25/2003 Left retinal detachment 01/11/2021 macula off, Morphea Other Vitamin D deficiency 01/06/2013 Past Surgical History: Past Surgical History: Procedure Laterality Date CABG, ARTERIAL, SINGLE N/A 02/16/2024 CORONARY ARTERY BYPASS GRAFT USING ARTERY 1 GRAFT performed by Bill Kang MD at [facility] CABG, ARTERY-VEIN, TWO N/A 02/16/2024 CORONARY ARTERY BYPASS GRAFT ARTERIAL AND VENOUS 2 GRAFTS performed by Bill Kang MD at OR [facility] COLONOSCOPY 02/2013 repeat 5 yrs COLONOSCOPY W/ LESION REMOVAL, SNARE 03/06/2008 adenomaotus, repeat in 5 years COLONOSCOPY, DIAGNOSTIC (RECTUM) 07/01/2017 adenomatous polyps, diverticulosis, repeat 5 yrs/COLONOSCOPY FLEXIBLE PROXIMAL DIAGNOSTIC performedby Sid Lee MD at ENDOSCOPY [facility] ENDO,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 Right 02/16/2024 ENDOSCOPY VIDEO ASSISTED HARVEST VEIN performed by Bill Kang MD at [facility] EXCLUSION LEFT ATRIAL APPENDAGE, OPEN, PERFORMED AT TIME OF OTHER SIBLEY OR THORA PROC, ANY METHOD N/A 02/16/2024 EXCLUSION OF LEFT ATRIAL APPENDAGE, OPEN, PERFORMED AT THE TIME OF OTHER STERNOTOMY OR THORACOTOMY PROCEDURE(S), ANY METHOD performed by Bill Kang MD at [facility] MISCELLANEOUS ORDER left ear TM patch MISCELLANEOUS ORDER 1993 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 per Dr Lu at [facility] [place] KERATOPLASTY ENDOTHELIAL Right 12/2018 REPLACEMENT AORTIC VALVE, BYPASS WITH PROSTHETIC VALVE N/A 02/16/2024 WITH REPLACEMENT AORTIC VALVE performed by Bill Kang MD at [facility] VITRECTOMY/LASER COAGULATION Left 01/13/2021 VITRECTOMY MECHANICAL PARS PLANA APPROACH WITH ENDOLASER PANRETINAL performed by Dylan Ladd DO at [facility] Subjective: Pt awake in chair, agreeable to PT. Social History/Disposition Lives with: Spouse (02/17/241442) Assistance available: Yes (02/17/241442) Dwelling type: Single story home (02/17/241442) Entry steps: 3 (02/17/241442) Inside steps: None (02/17/241442) Bedroom location: 1st floor (02/17/241442) Bath location: 1st floor full bath (02/17/241442) Prior Level of Function Reported by: Patient (02/17/241442) Ambulation: Ambulatory without device (02/17/241442) Devices at home: No device (02/17/241442) Observations Consciousness: Alert (02/17/241442) Orientation: Oriented times 4 (02/17/241442) Psychosocial: Patient can communicate basic needs;Patient can converse in a social setting (02/17/241442) Other Findings: Yes (02/17/241442) Findings: Light touch sensation (02/17/241442) Light Touch Sensation Results: Intact;LLE;RLE (02/17/241442) Pain: Patient has complaints of slight incisional site pain. Range of Motion Range of Motion: WFL (02/17/241442) Strength Assessment Strength Assessment: Deficits noted (02/17/241442) WNL, except: LLE;RLE (02/17/241442) LLE: Hip;Knee;Ankle;4+/5 (02/17/241442) RLE: Hip;Knee;Ankle;4+/5 (02/17/241442) Patient and or Family Goal(s): to get well and to return home Patient Education Review of Precautions: Safety;Fall;Sternal (02/17/241442) Safety Awareness: Patient can communicate basic needs (02/17/241442) Preferred learning method: Combination (02/17/241442) Barriers to learning: Medical Status (02/17/241442) Method of Education: Verbalized to patient;Patient demonstrated task (02/17/241442) Topic of Education: Safety with mobility, Goals/plan of care, and Fall prevention Method of Education: Verbal discussion and explanation provided to pt: verbalized understanding andor agreement of this information and demonstrated the exercise and or task Treatment Provided: Evaluation Moderate Complexity 8 minutes - 11837: Patient was cooperative and pleasant during treatment session. Moderate complexity evaluation performed and 1-2 personal factors or comorbidities were identified that will impact plan of care, including multiple steps at home andcardiac history. Patient presents with limitations in strength, which will impact plan of care. These limitations will be addressed by the goals set for this patient. Alarm Status Patient positioned in: Chair (02/17/241442) With: Pressure pad alarm intact and functioning and call lopez in reach (02/17/24 1443) Following session patient seated OOB in chair with chair alarm activated. Chair alarm (did not havecord to plug into call lopez system and/or room did not have port to plug cord into call lopez system). Patient's nurse was made aware. Goals: Increase Strength of: B/L LE by 1/2-1 muscle grade Assess out of bed as able/appropriate Time Frame: 8 visits Assessment: Pt is a 74 year old male presenting s/p CABG. Pt alert and oriented x4, following all commands throughout session. Pt agreeable to bedrest activities only at this time due to fatigue. Educated pt on sternal precautions in which pt verbalized understanding and agreement. Pt demonstratinggood, symmetrical B/L LE strength/ROM and intact sensation. Plan to assess further mobility as able/appropriate. Discharge recommendations pending out of bed mobility. All needs met. Deficits requiring P.T. treatment needs: Lower extremity strength (02/17/24 1443) Treatment Plan: Strengthening exercises: B/L LE Assess out of bed as able/appropriate Anticipated Frequency (on eval): 1 to 3 times per week (02/17/24 1443) AM PAC Score with Stairs: AM-PAC assessment not scored at this time due to bedrest only. Please refer to future AM-PAC calculations of functional mobility as they become available. * Latisha Chaidez OTR/Jared - 02/17/2024 2:35 PM ESTAssociated Order(s): ADULT OCCUPATIONAL THERAPY CONSULT IP GENERAL BEDREST EVALUATION - Occupational Therapy [address] [address] Name: Alexis Garcia Location: [facility] [id number] Date: 02/17/2024 Time: 14:35 PM Alexis Garcia is a 74 year old male. Patient Status: Inpatient Insurance: Payor: MEDICARE Plan: MEDICARE A AND B Product Type: *No Product type* Payor: AARP Plan: AARP Product Type: *No Product type* Patient Seen: at bedside, nursing cleared patient for therapy Patient Identified By: Name, ID Band and Date Diagnosis: s/p CABG x 3, AVR (02/17/241434) Status of treatment: Bedrest evaluation completed (02/17/241434) Orders: OT evaluation and treatment (02/17/241434) Weight Bearing Status: Weight bearing as tolerated (02/17/241434) Precautions: Alarms;Falls;Safety;Skin;Sternal;Cardiac;External pacer;Stella line;Oxygen;Robert;Chest tube;Central line;A-line (02/17/241434) Total Treatment Time: 8 (02/17/241434) Per Epic: "Presenting Problem: chest pain HPI: Patient is a 74 year old male with PMHx significant for Aflutter on eliquis and metoprolol, hypertrophic cardiomyopathy, HTN, gout, HLD, aortic stenosis that presented from [facility] for evaluationof unstable angina and aortic stenosis. He states that on Thursday while hunting he noted intermittent periods of substernal chest pain that he describes as a pressure with a "pins and needles" sensation radiating up his neck. He notes associated shortness of breath. Relieved by rest. Denies any associated lightheadedness, syncope. He states that after he got home Thursday night his symptoms fully resolved with rest so he went hunting again on Thursday and noticed the same symptoms with increased severity. He states that he had to quit hunting sooner than he planned and decided to seek evaluation in the ED. At [facility], patient was found to have trop 23->25->20 which were reportedly negative per their lab reference range with reported nonspecific EKG changes (EKG not included with patient's chart for review). Heparin was started and patient was ultimately transferred here for further evaluation. On arrival patient states that he has no chest pain or shortness of breath. He states that he feelswell. Denies any recent fevers, chills, cough, congestion, sore throat, nausea, vomiting, abdominalpain, diarrhea, constipation, hematochezia, melena, dysuria, hematuria, lower extremity pain or swelling. Denies history of stroke, blood clot, cardiac stent, vascular stent, diabetes, COPD. Patient wants to be FULL CODE at this time. Wants his to make decisions for him in the settingthat he is not able to make decisions for himself. Lives with his . At baseline ambulates independently. Reports former tobacco use. Reports a few drinks per week alcohol use. SERVICE: Cardiac Surgery DATE: 02/16/24 PREOPERATIVE DIAGNOSIS: CAD/Aortic Stenosis/Atrial fibrillation POSTOPERATIVE DIAGNOSIS: same SURGEON: Bill Kang MD ASSISTANTS: JOSEFINA Whittaker ANESTHESIA: general OPERATION: CABGX 3 MITCHELL to LAD, SVG to OM, PDA. AVR 25mm magna ease, occlusion left atrial appendage 45mm Medtromnic clip" Past Medical History: Past Medical History: Diagnosis Date Benign neoplasm of colon 03/06/2008 adenomatous/repeat colonoscopy in 5 yrs Deviated nasal septum 01/22/2009 Dyslipidemia, goal LDL below 100 10/01/2010 Gout 05/27/2007 Hypertrophic obstructive cardiomyopathy(425.11) 09/19/2011 HYPERTROPHIC OBSTRUCTIVE CARDIOMYOPATHY(aka CARDIOMYOPATHY) 09/25/2003 Left retinal detachment 01/11/2021 macula off, Morphea Other Vitamin D deficiency 01/06/2013 Past Surgical History: Past Surgical History: Procedure Laterality Date CABG, ARTERIAL, SINGLE N/A 02/16/2024 CORONARY ARTERY BYPASS GRAFT USING ARTERY 1 GRAFT performed by Bill Kang MD at [facility] CABG, ARTERY-VEIN, TWO N/A 02/16/2024 CORONARY ARTERY BYPASS GRAFT ARTERIAL AND VENOUS 2 GRAFTS performed by Bill Kang MD at OR [facility] COLONOSCOPY 02/2013 repeat 5 yrs COLONOSCOPY W/ LESION REMOVAL, SNARE 03/06/2008 adenomaotus, repeat in 5 years COLONOSCOPY, DIAGNOSTIC (RECTUM) 07/01/2017 adenomatous polyps, diverticulosis, repeat 5 yrs/COLONOSCOPY FLEXIBLE PROXIMAL DIAGNOSTIC performedby Sid Lee MD at ENDOSCOPY [facility] ENDO,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 Right 02/16/2024 ENDOSCOPY VIDEO ASSISTED HARVEST VEIN performed by Bill Kang MD at OR [facility] EXCLUSION LEFT ATRIAL APPENDAGE, OPEN, PERFORMED AT TIME OF OTHER SIBLEY OR THORA PROC, ANY METHOD N/A 02/16/2024 EXCLUSION OF LEFT ATRIAL APPENDAGE, OPEN, PERFORMED AT THE TIME OF OTHER STERNOTOMY OR THORACOTOMY PROCEDURE(S), ANY METHOD performed by Bill Kang MD at [facility] MISCELLANEOUS ORDER left ear TM patch MISCELLANEOUS ORDER 1993 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 per Dr Lu at [facility] [place] KERATOPLAST[place] ENDOTHELIAL Right 12/2018 REPLACEMENT AORTIC VALVE, BYPASS WITH PROSTHETIC VALVE N/A 02/16/2024 WITH REPLACEMENT AORTIC VALVE performed by Bill Kang MD at OR [facility] VITRECTOMY/LASER COAGULATION Left 01/13/2021 VITRECTOMY MECHANICAL PARS PLANA APPROACH WITH ENDOLASER PANRETINAL performed by Dylan Ladd DO at OR [facility] Social History/Disposition Lives with: Spouse (02/17/241442) Assistance available: Yes (02/17/241442) Dwelling type: Single story home (02/17/241442) Entry steps: 3 (02/17/241442) Inside steps: None (02/17/241442) Bedroom location: 1st floor (02/17/241442) Bath location: 1st floor full bath (02/17/241442) Prior Level of Function Reported by: Patient (02/17/241434) Ambulation: Ambulatory without device (02/17/241434) Grooming: Independent (02/17/241434) Bathing: Independent (02/17/241434) Dressing: Independent (02/17/241434) Feeding: Independent (02/17/241434) Toileting: Independent (02/17/241434) Meal Prep: Independent (02/17/241434) Homemaking: Independent (02/17/241434) Shopping: Independent (02/17/241434) Medication Management: Independent (02/17/241434) Money Management: Independent (02/17/241434) Driving: Yes (02/17/241434) Durable Medical Equipment at home: No device (02/17/241434) Subjective: Pt was noted to be seated OOB in chair upon arrival and agreeable to therapy bedrest evaluation only secondary to increased fatigue. Pain: No complaints of pain Observations Consciousness: Alert (02/17/241434) Orientation: Oriented times 4 (02/17/241434) Psychosocial: Patient can communicate basic needs;Patient can converse in a social setting (02/17/241434) Sitting posture: Not assessed (02/17/241434) Standing posture: Not assessed (02/17/241434) Safety awareness: The Patient can communicate basic needs. (02/17/241434) Other Findings Light touch sensation: LUE;RUE;Intact (02/17/241434) Coordination: LUE;RUE;Gross motor;Fine motor;Intact (02/17/241434) Current Functional Status: Bilateral Upper Extremity Range of Motion: WFL (02/17/241434) Strength Assessment: (at least 3/5 throughout (formal MMT not assessed due to sternal precautions))(02/17/241434) Functional Ambulation Assistive Device: No device (02/17/241434) Distance in feet:: 0 (02/17/241434) Level of Assistance: Not Tested (02/17/241434) Alarm Status Patient positioned in: Chair (02/17/241434) With: Pressure pad alarm intact and functioning and call lopez in reach (02/17/241434) Following session patient seated OOB in chair with chair alarm activated. Chair alarm (did not havecord to plug into call lopez system and/or room did not have port to plug cord into call lopez system). Patient's nurse was made aware. Patient and Family Goals: to get well and to return home Patient Education Education Topic: Role of OT;Plan of care goals (02/17/241434) Review of Precautions: Safety;Fall;Sternal;Skin;Cardiac (02/17/241434) Method of Education: Verbalized to patient (02/17/241434) Education Provided to: Patient (02/17/241434) Response to Education: Receptive and agreeable to education (02/17/241434) Barriers to learning: Medical status (02/17/241434) Preferred learning method: Combination (02/17/241434) Treatment Provided: Evaluation Low Complexity 8 minutes - 87149: Patient was cooperative and pleasant during treatment session. Low complexity evaluation performed and decreased strength and decreased endurance deficits were identified that result in activity limitation. The patient does not have any comorbidities that affect occupational performance. There were no modifications necessary to complete the evaluation. Deficits Requiring O.T. Treatment: Deficits requiring O.T. treatment needs: Weakness;Upper extremity strength;Endurance (02/17/241434) Goals: Complete OOB portion of OT evaluation as able/appropriate Strength/ROM: Increase BUE strength 1/2 muscle grade Endurance: Increase endurance to 20/20 minutes in order to improve participation in ADL tasks and general mobility Precautions: Adhere to sternal precautions throughout participation in ADL tasks and general mobility Goal Time Frame: 8 visits Assessment: Pt was admitted to [facility] for the above dx. Pt was pleasant and cooperative during his bedrest OT evaluation this date. Pt was noted to be seated OOB in chair upon arrival and agreeable to therapy bedrest evaluation only secondary to increased fatigue. Prior to admission, pt reports that he lives with his in a 1 story home with 3 steps to enter. Pt reports that he was previously independent with ADL/IADL tasks and for mobility without a device. Pt was educated on sternal precautions this date; pt receptive and will be further educated in future sessions during self-care/mobilityassessment. BUE strength and ROM assessment was completed and is listed above. Following assessment, pt remained seated in chair; resting comfortably with call lopez in reach, all needs met. Currently, pt presents with deficits in BUE strength/endurance. Pt would benefit from acute OT services to address these deficits and work towards established goals. OOB self-care/mobility assessment to be completed as able/appropriate. In regard to discharge, a recommendation will be made once OOB evaluation is completed. Treatment Plan: ROM exercises, Upper extremity strengthening, Endurance, and to complete OOB as able/appropriate. Anticipated Frequency (on eval): 1 to 3 times per week (02/17/24 1435) AM-PAC JH HLM (Highest Level of Mobility) Goal: Level 4 move to chair/commode (02/17/24 0700) AM-PAC assessment not scored at this time due to bedrest evaluation. Please refer to future AM-PAC calculations of functional mobility as they become available. * Ly Soto RN - 02/17/2024 11:04 AM ESTAssociated Order(s): CARE MANAGEMENT CONSULT IP See note in Ancillary section. CM to follow during hospital course. Thanks * Lilia Moore RN - 02/17/2024 10:05 AM ESTAssociated Order(s): BLOOD MANAGEMENT CONSULT IP FOLLOW UP - Patient Blood Management [address] [phone] Name: Alexis Garcia Location: [facility] [id number] Date: 02/17/2024 Time: 10:05 AM Follow up inpatient - Hgb less than 10, active bleeding, or bloodless Alexis Garcia is a 74 year old male admitted on 02/13/2024 with POD#1 CABG. Identification of patient was done by: MRN BLOOD PRODUCTS IN THE LAST 24 HOURS: Yes LABS: Labs reviewed as indicated below: Latest Reference Range & Units 02/13/24 20:34 02/15/24 05:17 02/16/24 03:38 02/16/24 14:24 02/16/24 19:55 02/17/24 03:59 HGB 14.0 - 16.8 g/dL 13.8 (L) 14.4 13.2 (L) 8.3 (L) 8.6 (L) 7.4 (L) 7.8 (L) HCT 40.0 - 48.4 % 44.3 47.2 42.8 26.8 (L) 23.9 (L) 25.2 (L) IRON SCREEN, INCLUDING TIBC Rpt ! Iron 45 - 176 ug/dL 66 Iron Binding Capacity 250 - 425 ug/dL 230 (L) Transferrin Saturation Percent 15 - 55 % 29 Ferritin 30 - 400 ng/mL 463 (H) Immature Reticuloctye Fraction 2.5 - 20.6 % 20.8 (H) Reticulocyte Hemoglobin 29.7 - 37.4 pg 30.7 Absolute Reticulocyte 31.3 - 100.1 K/uL 95.2 Reticulocyte Percent 0.80 - 1.90 % 1.79 (L): Data is abnormally low PLAN OF CARE/RECOMMENDATION: Consider Infed 1000mg IVPB once for ABLA B12 1mg daily Continue vitamin daily x 2 months on D/C for ABLA Will follow up with [facility]. * Lilia Moore RN - 02/16/2024 10:04 AM ESTAssociated Order(s): BLOOD MANAGEMENT CONSULT IP REQUESTING SERVICE: [facility] REASON FOR CONSULT: new evaluation inpatient, pre op Latest Reference Range & Units 02/13/24 20:34 02/15/24 05:17 02/16/24 03:38 HGB 14.0 - 16.8 g/dL 13.8 (L) 14.4 13.2 (L) HCT 40.0 - 48.4 % 44.3 47.2 42.8 IRON SCREEN, INCLUDING TIBC Rpt ! Iron 45 - 176 ug/dL 66 Iron Binding Capacity 250 - 425 ug/dL 230 (L) Transferrin Saturation Percent 15 - 55 % 29 Ferritin 30 - 400 ng/mL 463 (H) Immature Reticuloctye Fraction 2.5 - 20.6 % 20.8 (H) Reticulocyte Hemoglobin 29.7 - 37.4 pg 30.7 Absolute Reticulocyte 31.3 - 100.1 K/uL 95.2 Reticulocyte Percent 0.80 - 1.90 % 1.79 (L): Data is abnormally low Chart reviewed. In absence of severe anemia, hemorrhage, or personal beliefs that prohibit blood transfusion would not recommend urgent therapy with iron, vitamins, or erythroid stimulating agents atthis time. If no active hemorrhage, consider PRBC transfusion only for severe anemia and use a 1 unit PRBC dose followed by a repeat clinical assessment. For reversal of anticoagulation therapy, use Reversal of Anticoagulation order set. Please recommend outpatient follow up that includes repeat assessment of hemoglobin when stable fordischarge. Please call with questions. Thank you for allowing Blood Management to participate in the care of this patient. Bill Ivory MD - 02/15/2024 11:39 AM ESTAssociated Order(s): CARDIAC SURGERY CONSULT IP CONSULT - CARDIAC SURGERY [facility] [id number] Name: Alexis Garcia Location: [facility] [id number] Date: 02/15/2024 Time: 11:40 AM REFERRING PHYSICIAN: @REF@ PCP: Rashawn Obrien MD BRAKE HOLDER: Idalmis CARUSO (outpatient); Dr. Chavez inpatient Preference for return visit: Matheus Newby REQUESTING SERVICE: Cardiology REASON FOR CONSULT: Severe multivessel disease with significant L main lesion and aortic valve stenosis HPI: Alexis Garcia is a 74 year old male with a past medical history significant for Atrial Flutteron Eliquis, hypertrophic cardiomyopathy, HTN, gout, HLD, and aortic stenosis. He initially presented to [facility] for unstable angina and known aortic stenosis. Today, cardiac catheterization revealed severe multi-vessel coronary artery disease including severe Left main lesion, mRCA 95%, and distal RCA70%. TTE performed yesterday reports moderate aortic valve stenosis with mild aortic valve regurgitation and an EF of 55% which is down from 65% reported 2- months prior. Patient reports he first began noticing his symptoms when he was hunting this past Thursday. He reports on Thursday while he was walking in [facility], he began noticing deep, substernal pressure with radiation into his neck associated also with some SOB. The pain was noticed mainly with activity and subsided with rest. He states he also had palpitations with these episodes. He reports he has a history of atrial flutter, not knowing when it started in his medical history. Once he concluded hunting for the day, he states he had no pain the rest of the day/night. The next day, he attempted to gates again and noticed the substernal chest pain arose again with activity, however, this time the pain was much more severe. This prompted him to go to the ED for evaluation. Troponins were not significantly elevated (23 -25 -20) and EKG with nonspecific changes. Heparin started and he was transferred here for further work-up. On exam, he reports he does not currently have chest pain. He denies fever, chills, palpitations, SOB, DAVILA, N/V, constipation, diarrhea, dysuria. He also denies syncope. Of note, he is on eliquis for Atrial flutter. His last dose of eliquis was Monday 02/12. [place] Heart Failure Classification: Class II (Mild) ALLERGIES: Patient has no known allergies. PAST MEDICAL HISTORY: Past Medical History: Diagnosis Date Benign neoplasm of colon 03/06/2008 adenomatous/repeat colonoscopy in 5 yrs Deviated nasal septum 01/22/2009 Dyslipidemia, goal LDL below 100 10/01/2010 Gout 05/27/2007 Hypertrophic obstructive cardiomyopathy(425.11) 09/19/2011 HYPERTROPHIC OBSTRUCTIVE CARDIOMYOPATHY(aka CARDIOMYOPATHY) 09/25/2003 Left retinal detachment 01/11/2021 macula off, Morphea Other Vitamin D deficiency 01/06/2013 PAST SURGICAL HISTORY: Past Surgical History: Procedure Laterality Date COLONOSCOPY 02/2013 repeat 5 yrs COLONOSCOPY W/ LESION REMOVAL, SNARE 03/06/2008 adenomaotus, repeat in 5 years COLONOSCOPY, DIAGNOSTIC (RECTUM) 07/01/2017 adenomatous polyps, diverticulosis, repeat 5 yrs/COLONOSCOPY FLEXIBLE PROXIMAL DIAGNOSTIC performedby Sid Lee MD at ENDOSCOPY [facility] MISCELLANEOUS ORDER left ear TM patch MISCELLANEOUS ORDER 1993 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 per Dr Lu at [facility] [place] KERATOPLASTY ENDOTHELIAL Right 12/2018 VITRECTOMY/LASER COAGULATION Left 01/13/2021 VITRECTOMY MECHANICAL PARS PLANA APPROACH WITH ENDOLASER PANRETINAL performed by Dylan Ladd,DO at OR [facility] Hx of vein harvest or stripping?: no SOCIAL HISTORY: Patient lives at home with his , he performs his ADLs independently, he is retired and works as [employer] during the holidays, he is able to walk without assistance Drug Use: never Social History Tobacco Use Smoking status: Former Current packs/day: 0.00 Types: Cigarettes Start date: 03/09/1965 Quit date: 03/09/1975 Years since quittin.9 Smokeless tobacco: Never Tobacco comments: 3-4 cigarettes Vaping Use Vaping status: Never Used Substance Use Topics Alcohol use: Yes Alcohol/week: 0.0 standard drinks of alcohol Comment: 4-5 beers on Sat and Sun Drug use: No FAMILY HISTORY: Family History Problem Relation Name Age of Onset Heart Disorder Mother DC Cancer Father pancreas Other (Other) Other pt denies hx of skin cancer for parents Family History of Premature CAD (Less than 55 year old male relative or less than 65 year old female relatives with history of angina, acute DC, sudden cardiac without obvious cause, CABG surgery, or PCI.): no REVIEW OF SYSTEMS: Constitutional: denies weight loss, denies fever, denies shaking chills Eyes: denies double vision , denies blurred vision , denies cataracts, denies visual spots Ear, nose and throat: denies decreased hearing, denies trouble swallowing, denies epistaxis Dental: top plates, bottom plates Cardiac: see HPI, Hx of aflutter on eliquis Vascular: no claudication Respiratory: see HPI, snores loudly, others have observed patient stop breathing during sleep Gastrointestinal: denies dysphagia, denies nausea, denies vomiting, denies abdominal pain, denies constipation, denies diarrhea, denies blood in bowel movements, denies melena Genitourinary: denies dysuria, denies nocturia, denies hematuria, denies diminished stream, denies frequency Musculoskeletal: denies joint pain Psychiatric: denies depression, denies anxiety Skin: denies rash, denies non-healing ulcers, denies jaundice Neurologic: denies trouble speaking, denies syncope, denies weakness Endocrine: denies constant thirst, denies constant hunger, denies constant urinating Hematologic / Lymphatic: On eliquis for aflutter Immunologic: denies trouble fighting infections CARDIOTHORACIC COMPLETE PHYSICAL EXAM: Most Recent Vital Signs: BP: 111 mmHg/61 mmHg (02/15/24 1300) Pulse: 58 (02/15/24 1300) Resp: 17 (02/15/24 1005) Temp: 36.39 C (02/15/24 0717) Temp Summary: Temp Min: 36.2 C (97.1 F) Max: 36.7 C (98 F) SpO2: 95 % (02/15/24 1300) O2 flow rate: Supplemental O2 Delivery: Room Air, None (02/15/24 0950) PHYSICAL EXAM: General: no acute distress, alert and oriented, and stated age Head: normocephalic, no masses, lesions, tenderness or abnormalities Eyes: conjunctiva are pink and non-injected, sclera clear, PERRLA, EOMI Teeth: dentures Neck: supple, no adenopathy, no bruits, thyroid normal size, non-tender, without nodularity Chest: normal shape and normal respiratory effort Lungs: lungs clear to auscultation Cardiac Exam: regular rate & rhythm Systolic murmur Pulses: The following pulses are normal: carotids, radials, dorsalis pedis pulses, and posterior tibials Abdomen: abdomen soft, non-tender, no abnormal masses, no hepatosplenomegaly, and normal active bowel sounds Extremities: no cyanosis and edema present: Symmetric lower extremity 1+ edema Skin: skin color, texture, turgor are normal, no rashes or significant lesions Neuro: grossly normal exam, normal mental status, cranial nerves normal Veins GSV appears adequate bilaterally LABS/STUDIES: Cardiac Cath 02/15/24: "Additional Findings: Coronary disease - hemodynamically significant- MVCAD [id number] with severe calcific disease (Berger 1-1-1). There was significant dampening every time we engaged the LMCA and we were unable to pass an IVUS wire into the LAD mRCA 95% stenosis followed by distal RCA 70% stenosis" TTE 02/14/24: "Interpretation Summary The examination is adequate to evaluate the referral indication. The qualitative LV ejection fraction is 55-59% (normal). The LV wall thickness is severely increased (concentric). The right ventricular size is qualitatively normal. Image resolution does not allow for accurate measurement. The right ventricular systolic function is qualitatively normal. Moderate aortic valve stenosis is present. Mild aortic valve regurgitation is present." TTE 12/01/23: "Interpretation Summary The examination is adequate to evaluate the [...] 02/09/2023, there has been no significant interval change." Society of Thoracic Surgeons (STS) Risk Score: STS site Procedure Type: CABG + AVR Perioperative Outcome Estimate % Operative Mortality 2.56% Morbidity & Mortality 11.5% Stroke 1.45% Renal Failure 1.52% Reoperation 4.24% Prolonged Ventilation 7.61% Deep Sternal Wound Infection 0.127% Long Hospital Stay (>14 days) 5.41% Short Hospital Stay (<6 days)* 37.3% IMPRESSION: 74yo male with PMH HTN, HLD, gout, hypertrophic cardiomyopathy, aflutter on eliquis, and known aortic stenosis, was found today to have MVCAD with severe L main lesion and RCA disease. TTE confirms patient has moderate aortic valve stenosis with mild aortic valve regurgitation. PLAN: -Pre-op testing ordered including labs (CBC, BMP, coags, UA, etc.), vascular studies (carotids, vein mapping), and MRSA screen -Continue beta kelsi and Heparin gtt unless contraindicated -Please continue to avoid HILLARY-I and long acting anticoagulation agents -Final plan per surgeon Patient seen and studies reviewed. Alexis Garcia is a 74-year-old male with past medical history significant for hypertension, hyperlipidemia, chronic AFib on Eliquis and known aortic stenosis who presented with accelerating anginal symptoms. Coronary angiogram demonstrated a 90% mid right coronary lesion as well as a 90% left main coronary artery stenosis. Echocardiogram confirmed preserved systolic function with moderate aortic stenosis. Mean gradient was 24 mmHg. We have been asked to see him in consideration for surgical revascularization and aortic valve replacement. Alexis has accelerating anginal symptoms due to his multivessel coronary disease. His aortic valve stenosis is moderate and it would be reasonable to replace the aortic valve at his revascularization.We will perform an intraoperative transesophageal ECHO and if that echocardiogram confirms at leastmoderate aortic stenosis we would proceed with aortic valve replacement. He is otherwise very functional and I believe would be a reasonable surgical candidate. I discussed the indications for coronary artery bypass and aortic valve replacement with Alexis and his family who were at the bedside. We discussed the procedure of coronary artery bypass and aortic valve replacement itself, along with its risk as estimated by the ST S, potential benefits and possible alternative therapies. He understands agreed to proceed with surgery. Due to his chronic atrial fibrillation we will also ligate the left atrial appendage at the operation. documented in this encounter Nursing Notes * Idalmis Lopez RN - 02/21/2024 11:29 AM EST I have conducted the discharge appointment with the patient (ph: [phone]) on 02/21/2024 at 11:30 AM. This discussion occurred bedside. Meds to beds offered: yes. The following post care is planned: PCP follow up. I encouraged the patient and/or family to call the hospital with any questions or concerns about the hospital admission. * Bruce Parker RN - 02/16/2024 7:30 PM EST Patient weaned from sedation and placed on an SBT for 1 hour. Eugenio Wells PA-C at bedside to evaluate patient. Extubation order placed by Eugenio Wells ([facility]) and verified by myself and Zachery Tiwari RN. GAS DESULFURIZER at bedside for extubation. Positive cuff leak heard prior to extubation. Patient extubated to6L nasal cannula at 1930 with no signs of respiratory distress. No stridor heard post extubation * Miya Price RN - 02/16/2024 6:33 PM EST I precepted Bruce Parker RN on 02/16/2024. I have reviewed and agree with all assessments and documentation. * Bruce Parker RN - 02/16/2024 5:25 PM EST Dual Licensed Skin Assessment completed by Bruce Parker RN and Miya Price. The patient is/has a N/A Skin Breakdown (includes non blanchable erythema): Yes - Surgical/Procedural changes only. * Mg Tate RN - 02/16/2024 8:17 AM EST Patient presented to OR with razor burn-like abrasions involving bilateral axillas, anterior groins, and posterior upper thighs/buttocks. * Elfego Alexis RN - 02/16/2024 6:03 AM EST Dual Licensed Skin Assessment completed by Elfego Rodriguez RN and Cynthia Watts RN. The patient is/has a N/A Skin Breakdown (includes non blanchable erythema): No * Devon Melendez RN - 02/16/2024 3:32 AM EST IP TO PERIOP HANDOFF COMMUNICATION NOTE [facility] [address] Name: Alexis Garcia AGE: [age] year old Location: [id number] Date: 02/16/2024 Attention to: PACU Report from: Devon Melendez RN Patient arriving via: Wheelchair Time of Call: 3:43 AM Phone Ext.: [phone] Reason for SBAR handoff: Procedure/Diagnostic/Treatment Consent: Emotional/Personal Events & Special Needs: N/A Allergies: Patient has no known allergies. PMH: Past Medical History: Diagnosis Date Benign neoplasm of colon 03/06/2008 adenomatous/repeat colonoscopy in 5 yrs Deviated nasal septum 01/22/2009 Dyslipidemia, goal LDL below 100 10/01/2010 Gout 05/27/2007 Hypertrophic obstructive cardiomyopathy(425.11) 09/19/2011 HYPERTROPHIC OBSTRUCTIVE CARDIOMYOPATHY(aka CARDIOMYOPATHY) 09/25/2003 Left retinal detachment 01/11/2021 macula off, Morphea Other Vitamin D deficiency 01/06/2013 PSH: Past Surgical History: Procedure Laterality Date COLONOSCOPY 02/2013 repeat 5 yrs COLONOSCOPY W/ LESION REMOVAL, SNARE 03/06/2008 adenomaotus, repeat in 5 years COLONOSCOPY, DIAGNOSTIC (RECTUM) 07/01/2017 adenomatous polyps, diverticulosis, repeat 5 yrs/COLONOSCOPY FLEXIBLE PROXIMAL DIAGNOSTIC performedby Sid Lee MD at ENDOSCOPY [facility] MISCELLANEOUS ORDER left ear TM patch MISCELLANEOUS ORDER 1993 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 per Dr Lu at [facility] [place] KERATOPLASTY ENDOTHELIAL Right 12/2018 VITRECTOMY/LASER COAGULATION Left 01/13/2021 VITRECTOMY MECHANICAL PARS PLANA APPROACH WITH ENDOLASER PANRETINAL performed by Dylan Ladd DO at OR [facility] Isolation: N/A Situation/Background Admission Date: 02/13/2024 Patient Service: Cardiology Med A Attending: Rola Chavez MD Level of Care: Med Surg [3] Assessment Vital Signs: BP: 121/57 (02/15/241834) Temp: 37 C (98.6 F) (02/15/241833) Pulse: 49 (02/15/24 1551) Resp: 18 (02/15/241833) SpO2: 97 % (02/15/241833) Lines: Peripheral Line Right Arm (Active) Status Fluids infusing 02/15/241934 Tubing Changed N/A 02/15/241934 Phlebitis Scale 0 02/15/241934 Infiltration Scale 0 02/15/241934 Site Description (Other) Without redness, swelling or drainage 02/15/241934 Site Intervention None required 02/15/241934 Dressing Assessment Dressing clean, dry, and intact 02/15/241934 Dressing Intervention None required 02/15/241934 Number of days: 3 Restraints: No orders of the defined types were placed in this encounter. Labs: Please see Lab Flowsheet for lab values. Lab Comments: Labs have not resulted yet Diet: Orders Placed This Encounter Procedures NPO After 2400 Except Meds NPO: Additional Diet Information: N/A Intake and Output: Intake/Output Summary (Last 24 hours) at 02/16/2024 0333 Last data filed at 02/15/2024 1845 Gross per 24 hour Intake 670.38 ml Output 375 ml Net 295.38 ml Belongings Remaining with Patient: Belongings taken by family prior What were AM meds taken with: N/A Time of last pain medication: N/A Med: N/A Time of last antibiotic: N/A Med: N/A Time of last skin assessment: 1934 Pressure injuries or areas of concern: N/A Neurological: Neuro WNL: WNL - within normal limits (02/15/241934) Head and Face: Symmetrical (02/15/24 0752) Coma Score: 15 (02/15/241934) Respiratory: Respiratory WNL: WNL- within normal limits (02/15/241934) Oxygen therapy/ Mechanical vent Supplemental O2 Delivery: Room Air, None (02/15/241833) Cardiac: Cardiovascular WNL: WNL - within normal limits (02/15/241934) Heart Sounds: S1;S2 (02/15/241934) Rhythm: ATRIAL FLUTTER (HR 67) (02/16/2432) QRS: 0.11 seconds (02/16/2432) Extremities: +Sensation;Right;Left;Upper;Lower;Warm (02/15/241934) Pulses Right: Radial +;Dorsalis Pedis + (02/15/241934) Pulses Left: Radial +;Dorsalis Pedis + (02/15/241934) Capillary Refill: 3 seconds (02/15/241934) GI: GI WNL: WNL - within normal limits (02/15/241934) : WNL: X - Exceptions to WNL as documented below (02/15/241934) Urine Description: (No urine to assess at this time) (02/15/241934) Integumentary: Integumentary WNL: WNL - within normal limits (02/15/241934) Triston Score (auto-calculation): 23 (02/15/241934) Additional Assessment Information: N/A * Merna Patel RN - 02/15/2024 9:40 AM EST CARDIAC RECOVERY SUITE TO IP HANDOFF COMMUNICATION NOTE [address] [address] Name: Alexis Garcia AGE: [age] year old Location: CATH/Cath Date: 02/15/2024 Attention to: Corinna Report from: Merna Patel RN Patient arriving via: Bed Time of Call: 0940 Phone Ext.: [phone] Situation/Background Admission Date: 02/13/2024 Patient Service: Cardiology Med A Attending: Rola Chavez MD Level of Care: Med Surg [3] Assessment Vital Signs: BP: 136/80 (02/15/24933) Temp: 36.4 C (97.5 F) (02/15/24716) Pulse: 63 (02/15/24933) Resp: 17 (02/15/24933) SpO2: 98 % (02/15/24933) Any change in assessment: NO Lines: Peripheral Line Right Arm (Active) Status Fluids infusing 02/15/24799 Tubing Changed No 02/15/24799 Phlebitis Scale 0 02/15/24799 Infiltration Scale 0 02/15/24799 Site Description (Other) Without redness, swelling or drainage 02/15/24799 Site Intervention None required 02/15/24799 Dressing Assessment Dressing clean, dry, and intact 02/15/24799 Dressing Intervention None required 02/15/24799 Number of days: 2 Interventions: Radial: Right Groin: N/A mL in band: 11 mL * Maritza Mohan BSN - 02/15/2024 8:46 AM EST IP TO CARDIAC INVASIVE LABS HANDOFF COMMUNICATION NOTE [address] [address] Name: Alexis Garcia AGE: [age] year old Location: [facility] [id number] Date: 02/15/2024 Attention to: CRS Report from: VINH Cloud Patient arriving via: Bed Time of Call: 8:46 AM Phone Ext.: [phone] Reason for SBAR handoff: Procedure/Diagnostic/Treatment Patient able to sign Consent: Yes Female 11-55 Test Resulted if Ordered: Does not meet criteria. Emotional/Personal Anxiety? N/a Allergies: Contrast Dye Allergy: no Dye Allergy Prep Given: no Patient has no known allergies. PMH: Past Medical History: Diagnosis Date Benign neoplasm of colon 03/06/2008 adenomatous/repeat colonoscopy in 5 yrs Deviated nasal septum 01/22/2009 Dyslipidemia, goal LDL below 100 10/01/2010 Gout 05/27/2007 Hypertrophic obstructive cardiomyopathy(425.11) 09/19/2011 HYPERTROPHIC OBSTRUCTIVE CARDIOMYOPATHY(aka CARDIOMYOPATHY) 09/25/2003 Left retinal detachment 01/11/2021 macula off, Morphea Other Vitamin D deficiency 01/06/2013 PSH: Past Surgical History: Procedure Laterality Date COLONOSCOPY 02/2013 repeat 5 yrs COLONOSCOPY W/ LESION REMOVAL, SNARE 03/06/2008 adenomaotus, repeat in 5 years COLONOSCOPY, DIAGNOSTIC (RECTUM) 07/01/2017 adenomatous polyps, diverticulosis, repeat 5 yrs/COLONOSCOPY FLEXIBLE PROXIMAL DIAGNOSTIC performedby Sid Lee MD at ENDOSCOPY [facility] MISCELLANEOUS ORDER left ear TM patch MISCELLANEOUS ORDER 1993 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 per Dr Lu at [facility] [place] KERATOPLASTY ENDOTHELIAL Right 12/2018 VITRECTOMY/LASER COAGULATION Left 01/13/2021 VITRECTOMY MECHANICAL PARS PLANA APPROACH WITH ENDOLASER PANRETINAL performed by Dylan Ladd DO at OR [facility] Isolation: Situation/Background Admission Date: 02/13/2024 Patient Service: Cardiology Med A Attending: Rola Chavez MD Level of Care: Med Surg [3] Assessment Vital Signs: BP: 122/70 (02/15/24716) Temp: 36.4 C (97.5 F) (02/15/24716) Pulse: 58 (02/15/24716) Resp: 18 (02/15/24716) SpO2: 95 % (02/15/24716) Lines: Peripheral Line Right Arm (Active) Status Fluids infusing 02/15/24 08 Tubing Changed No 02/15/24799 Phlebitis Scale 0 02/15/24799 Infiltration Scale 0 02/15/24799 Site Description (Other) Without redness, swelling or drainage 02/15/24 08 Site Intervention None required 02/15/24 08 Dressing Assessment Dressing clean, dry, and intact 02/15/24799 Dressing Intervention None required 02/15/24 08 Number of days: 2 Labs: Please see Lab Flowsheet for lab values. Lab Comments: n/a Diet: Orders Placed This Encounter Procedures NPO After 2400 Except Meds NPO: Additional Diet Information: n/a Intake and Output: Intake/Output Summary (Last 24 hours) at 02/15/2024 0846 Last data filed at 02/15/2024 0800 Gross per 24 hour Intake 66.45 ml Output -- Net 66.45 ml Belongings Remaining with Patient: none What were AM meds taken with: water Time of last pain medication: n/a Time of last antibiotic: n/a Antiplatelets: Anticoags: Neurological: Neuro WNL: WNL - within normal limits (02/15/24751) Head and Face: Symmetrical (02/15/24751) Coma Score: 15 (02/15/24751) Respiratory: Respiratory WNL: WNL- within normal limits (02/15/24751) Oxygen therapy/ Mechanical vent Supplemental O2 Delivery: Room Air, None (02/15/24751) Cardiac: Cardiovascular WNL: WNL - within normal limits (02/15/24751) Heart Sounds: S2;S1 (02/15/24751) Rhythm: AFib (54) (02/14/242258) QRS: 0.08 seconds (02/14/242258) Extremities: +Sensation;Left;Right;Upper;Lower (02/15/24751) Pulses Right: Dorsalis Pedis +;Radial + (02/15/24751) Pulses Left: Dorsalis Pedis +;Radial + (02/15/24751) Capillary Refill: 3 seconds (02/15/24751) GI: WNL : WNL: WNL - within normal limits (02/15/24751) Integumentary: Integumentary WNL: WNL - within normal limits (02/15/24751) Triston Score (auto-calculation): 23 (02/15/24 0800) Additional Assessment Information: n/a Reminder: Void motors and controls tester, all clothes removed. * Marva Saldana RN - 02/13/2024 7:47 PM EST Dual Licensed Skin Assessment completed by Marva MADDEN and Marcie MADDEN. The patient is/has a N/A Skin Breakdown (includes non blanchable erythema): No * Lacey Claros RN - 02/13/2024 7:03 PM EST VIRTUAL RN [facility]-[address] [address] Name: Alexis Garcia Location: [facility] [id number]/A Date: 02/13/2024 Time: 7:03 PM I completed the Admission Navigator. The patient was in the hospital. I was not in a hospital or clinic location. After connecting through [employer], the patient was identified by name and date of and / or wristband checked. Patient (or authorized legal senior customer service representative) was then informed that this was a Virtual Nurse visit and was being conducted confidentially over secure lines. I used a headset and other methods to ensure confidentiality for the patient. My office door was closed. No oneelse was in the room with me. Patient acknowledged consent and understanding of privacy and security of the Virtual Nurse visit. I presented the opportunity for the patient or authorized legal senior customer service representative to ask any questions regarding the visit today. The patient or authorized legal senior customer service representative agreed to participate. Admission Navigator completed with pt. Spouse has list of home meds on her cellphone, but pt attempted to reach her without success, so he will have her give the list to staff when she comes in to see him in the morning. documented in this encounter OR Notes * OR Surgeon - Bill Kang MD - 02/16/2024 8:42 AM EST OPERATIVE RECORD OR [facility], OPERATING ROOM [facility], GISELA CARTER [address] [address] Alexis Garcia : 1950 Location: [facility] SERVICE: Cardiac Surgery DATE: 02/16/24 PREOPERATIVE DIAGNOSIS: CAD/Aortic Stenosis/Atrial fibrillation POSTOPERATIVE DIAGNOSIS: same SURGEON: Bill Kang MD ASSISTANTS: JOSEFINA Whittaker ANESTHESIA: general OPERATION: CABGX 3 MITCHELL to LAD, SVG to OM, PDA. AVR 25mm magna ease, occlusion left atrial appendage 45mm Medtromnic clip FINDINGS: calcified valve and vessels. No perivalvular leak, triphasic flow in grafts ESTIMATED BLOOD LOSS: 500ml DRAINS: CT X 2 FLUIDS: adequate mL. URINE OUTPUT: adequate SPECIMEN: None. COMPLICATIONS: None. CONDITION: stable INDICATIONS AND HISTORY: Alexis Garcia is a 74-year-old male with known history of aortic stenosis. He presented with accelerating anginal symptoms. Coronary angiogram demonstrated severe multivessel coronary disease including left main coronary stenosis. Echocardiogram confirmed [id number] aortic stenosis with heavily calcified valve. DESCRIPTION OF OPERATION: The patient was placed on the operating table in the supine position. General anesthesia was induced and monitoring lines placed by anesthesia. He was prepped and draped in usual sterile fashion. Greater saphenous vein was endoscopically harvested from the right lower extremity. Median sternotomy performed and the left internal mammary artery taken from beneath the left sternum. The patient was heparinized and placed on cardiopulmonary bypass using a cannula in the ascending aorta and a three-stage venous cannula in the right atrium. A coronary sinus catheter was placed retrograde cardioplegia and a left ventricular vent placed through the right superior pulmonary vein. The patient was systemically cooled and the aorta crossclamped. Cold [place] cardioplegia wasdelivered both in an antegrade and retrograde fashion with prompt diastolic arrest of the heart. The posterior descending coronary artery was opened it was a heavily calcified vessel. A segment of saphenous vein was anastomosed using 7 0 Prolene. The obtuse marginal coronary artery was explored. It was heavily calcified throughout its course. We found 1 soft spot in intra myocardial location. A separate segment of saphenous vein was anastomosed using 7 0 Prolene. The left internal mammary artery was anastomosed the distal left anterior descending coronary artery using 8 0 Prolene. The left atrial appendage was occluded using a 45 mm Medtronic clip. Attention was turned towards aortic valve. The aorta was opened via an oblique aortotomy. The aortic valve was heavily calcified and trileaflet. The leaflets were removed and the annulus aggressively debrided. The ventricle was irrigated with iced saline solution to remove any debris. The annulus was sized to a 25 mm magna ease bovine pericardial valve. This was sewn in place in the supra-annular position using pledgeted sutures of 2-0 Ethibond. With the valve seated the right and left coronary ostia were expect and found to be widely p atent. The aorta was closed a running 2 layer closure of 4-0 Prolene. Under single crossclamp the 2vein grafts were anastomosed to ascending aorta using 6 0 Prolene. The heart was de-aired, a warm dose cardioplegia given retrograde and the aortic crossclamp removed. Following a period of rewarmingthe patient was weaned from cardiopulmonary bypass without difficulty. Transesophageal echo demonstrated normally functioning valve and no evidence of perivalvular leak. The heparin was reversed and all the cannulas removed. Temporary pacing wires were placed on the right ventricle and chest tubes placed in the left pleural space and mediastinum. There was significant coagulopathy that took some time to resolve. Eventually hemostasis was assured and the chest closed using surgical steel wire for the sternum followed by layered closure of Vicryl and a subcuticular stitch for skin. The patient tolerated the procedure well. Sponge and needle counts were correct. He was returned to the ICU in stable condition. Was there a qualified resident that took part in the case? No - The skilled assistance of the advanced practitioner/physician was necessary for the successful completion of this case. Fuel Yard Operator name: JOSEFINA Whittaker Fuel Yard Operator role: The advanced practitioner/physician was essential for retraction, suction, wound closure, and saphenous vein harvesting - endovascular I understand that section 1842 (b)(7)(D) of the Social Security Act generally prohibits Medicare physician fee schedule payment for the services of [id number] in teaching hospitals when qualified residents are available to furnish such services. I certify that the services for which payme nt is claimed were medically necessary, and that no qualified resident was available to perform theservices. I further understand that these services are subject to post-payment review by the Medicare carrier. Bill Kang MD 02/16/2024 8:42 AM documented in this encounter Miscellaneous Notes * Progress Notes - Post-Op Global - Rashawn Wells MD - 02/21/2024 4:10 AM EST PROGRESS NOTE - CARDIAC SURGERY [address] [address] Name: Alexis Garcia Location: [facility] [id number] Date: 02/21/2024 Time: 4:10 AM OPERATION: CABGX 3 MITCHELL to LAD, SVG to OM, PDA. AVR 25mm magna ease, occlusion left atrial appendage 45mm Medtromnic clip SURGEON: Bill Kang MD POD#: 5 PATIENT ISSUES/EVENTS: Remains in rate-controlled Afib. Losartan started yesterday afternoon for better blood pressure control. Otherwise, no acute events overnight. PHYSICAL EXAM: General: no acute distress Heart Exam: irregular rhythm Lungs: normal respirations, clear to auscultation Abdominal Exam: abdomen soft, but distended, active bowel sounds, nontender Extremities: warm and dry, +1 edema Incision: sternotomoy - intact Neurological: alert Pulses: radial CURRENT CORE CARDIAC MEDICATIONS: Beta Kelsi: yes ASA: yes Statin: yes HILLARY-Inhibitor / ARB: yes POSTOPERATIVE COMPLICATIONS: none ADDITIONAL PROCEDURES: none ASSESSMENT/PLAN: Cardiovascular: EF 55%, hx of CAD/, hx of afib on eliquis Rate/Rhythm: Rate-controlled Afib with with HR in the 70s Was initially V paced over CHB Prior milrinone for low SVO2 off PM 02/17 Central Line(s): out Pacer Wires: out Pulmonary: Satting well on RA Chest Tubes/Krzysztof Drains: out GI: Diet: Regular Previously had some abdominal distention and a gastric bubble with possible mild ileus, but has since had BM GI Prophylaxis: Pepcid LBM 02/19 /Renal: Most recent Cr: 1.0 Robert: out Voiding Hematology: HGB: 8.8 PLT: 168 ASA 81 Subq heparin 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 02/17 Plan is to continue Coumadin for 1 month, then switch back to [employer]PECTOR Eliquis Received products in OR Neuro/P.T./O.T.: Intact Some dizziness getting OOB to chair POD 1 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 Infectious Disease: No issues Periop ancef completed Endo: Periop insulin completed No hx of DM2 Disposition: ICU Plan: - Remains in rate-controlled afib - Losartan 25 was started last evening, increase t0 50 this morning if able - Consider switching to PO daily lasix/K - Consider switching to Toprol 100 in AM (home med) - OOB and ambulate - Home soon Jessie Castro PA-C ATTENDING STAFF I have seen and examined the patient on 02/21/2024. Doing very well this morning. Moving his bowels. Ambulating in the halls. Feels ready to go home. - Discharge home today - Coumadin for Afib (then transition back to Eliquis after 1 month of Coumadin) Rashawn Wells MD * Ancillary Progress Note - Ana Winston RRT - 02/20/2024 2:41 PM EST PDP RE-EVALUATION NOTE - Respiratory Care Services [address] [id number] Name: Alexis Garcia Location: [facility] H761/[id number] Date: 02/20/2024 Time: 2:41 PM Patient Driven Protocol Summary: Re-evaluation . This Treatment Plan and medications will be reviewed by the Primary Care Team for any contraindications. Respiratory Care Treatment Plan Pulmonary Volume Expansion Therapy: Incentive Spirometry PRN to prevent or treat alveolar consolidation and atelectasis. . Secretion Management Treatment: Flutter TherapyPRN to enhance mobilization of secretions. . The patient will be re-evaluated: No re-evaluation needed. Indications for treatment met. The Triage Level is: (Assessment Score = 6 -10) Level 4. Triage Level Definitions: Level 1 Severe Respiratory/Airway Compromise Level 2 Moderate Respiratory/Airway Compromise or high risk for pulmonary complications Level 3 Mild Respiratory/Airway Compromise or moderate risk for pulmonary complications Level 4 Episodic Respiratory/Airway Compromise or low risk for pulmonary complications Level 5 No Respiratory/Airway Compromise Triage 1 Triage 2 Triage 3 Triage 4 Triage 5 greater than 20 16 - 20 11 - 15 6 - 10 0 - 5 Medical Record Assessment Clinical Findings Pulmonary Status: 0 - No Smoking or quit greater than 10 years ago Surgical Status: 3 - Thoracic or Upper Abdominal Chest X-Ray: 2 - Infiltrates and/or Atelectasis Assessment Score: 5 Patient Assessment Clinical Findings Respiratory Pattern: 0 - RR 12 - 20; Patient only gets breathless with strenuous exercise. Breath Sounds: 2 - Diminished bilaterally Cough Effectiveness: 0 - Strong non-productive Sputum Production 0 - No sputum production Level of Activity: 0 - Ambulatory O2 needed to keep SpO2 greater than or equal to 92%: 0 - Room Air Assessment Score: 2 Total Assessment Score: 7 Breath Sounds: Inspiratory and expiratory clear and diminished bilaterally.. Cough and Sputum: An effective cough produced no sputum... Vital Signs: Resp: 20 (02/20/24 1200) Pulse: 70 (02/20/24 1300) Temp: 36.9 C (98.5 F) (02/20/24 1200) BP: 139/82 (02/20/24 1200) SpO2: 98 % (02/20/24 1300) PFT: Minimal Predicted IC: 1.03 L. Inspiratory capacity: 0.500L. Primary Service: Cardiac Surgery. Admitting Diagnosis: Aortic stenosis [I35.0] Unstable angina (HCC) [I20.0] Pulmonary Diagnosis: Former smoker . * Progress Notes - Post-Op [facility] - Rashawn Wells MD - 02/20/2024 3:12 AM EST PROGRESS NOTE - CARDIAC SURGERY [facility] [place]-[address] [phone] Name: Alexis Garcia Location: [facility] [id number] Date: 02/20/2024 Time: 3:12 AM OPERATION: CABGX 3 MITCHELL to LAD, SVG to OM, PDA. AVR 25mm magna ease, occlusion left atrial appendage 45mm Medtromnic clip SURGEON: Bill Kang MD POD#: 4 PATIENT ISSUES/EVENTS: Remains in rate-controlled afib. Otherwise, no acute events overnight. PHYSICAL EXAM: General: no acute distress Heart Exam: irregular rhythm Lungs: normal respirations, clear to auscultation Abdominal Exam: abdomen soft, but distended, active bowel sounds, no pain on palpation Extremities: warm and dry, +1 edema Incision: sternotomoy - intact Neurological: alert Pulses: radial CURRENT CORE CARDIAC MEDICATIONS: Beta Kelsi: yes ASA: yes Statin: yes HILLARY-Inhibitor / ARB: no, explain -- normal LVEF POSTOPERATIVE COMPLICATIONS: none ADDITIONAL PROCEDURES: none ASSESSMENT/PLAN: Cardiovascular: EF 55%, hx of CAD/, hx of afib on eliquis Afib with with HR 60-70 Prior milrinone for low SVO2 off PM 02/17 Central Line(s): Yes, reason: Hemodynamic monitoring Pacer Wires: yes Pulmonary: Satting well on RA Chest Tubes/Krzysztof Drains: out GI: Advance diet to regular as tolerated - some abd distention and gastric bubble Previously had some abdominal distention and a gastric bubble with possible mild ileus, but has since had BM Pepcid LBM 02/19 /Renal: Creat / UO acceptable post op Robert: Yes, reason: fluid monitoring Hematology: Hgb 9.3 PLT 130 ASA/sub q heparin 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 Doing well this morning. Abdomen feeling better and has had multiple bowel movements. Has been up and ambulating. - Diet advanced - Increase ambulation - Coumadin for Afib (then transition back to Eliquis after 1 month of Coumadin) - Possible discharge home tomorrow Rashawn Wells MD * Respiratory Progress Note - Lilia Madden, GAS DESULFURIZER - 02/19/2024 11:44 AM EST PDP RE-EVALUATION NOTE - Respiratory Care Services [facility] [place] [id number] Name: Alexis Garcia Location: [facility] H761/A Date: 02/19/2024 Time: 11:44 AM Patient Driven Protocol Summary: Re-evaluation . This Treatment Plan and medications will be reviewed by the Primary Care Team for any contraindications. Respiratory Care Treatment Plan Pulmonary Volume Expansion Therapy: EzPAP Treatment: Total Performed: 30 with Device Settin BID to prevent or treat alveolar consolidation and atelectasis. Additional Pulmonary Volume Expansions: Incentive Spirometry BID to prevent or treat alveolar consolidation and atelectasis. . Secretion Management Treatment: Flutter TherapyBID to enhance mobilization of secretions. .. The patient will be re-evaluated: within 48 hours. The Triage Level is: (Assessment Score = 11-15) Level 3. Triage Level Definitions: Level 1 Severe Respiratory/Airway Compromise Level 2 Moderate Respiratory/Airway Compromise or high risk for pulmonary complications Level 3 Mild Respiratory/Airway Compromise or moderate risk for pulmonary complications Level 4 Episodic Respiratory/Airway Compromise or low risk for pulmonary complications Level 5 No Respiratory/Airway Compromise Triage 1 Triage 2 Triage 3 Triage 4 Triage 5 greater than 20 16 - 20 11 - 15 6 - 10 0 - 5 Medical Record Assessment Clinical Findings Pulmonary Status: 0 - No Smoking or quit greater than 10 years ago Surgical Status: 3 - Thoracic or Upper Abdominal Chest X-Ray: 2 - Infiltrates and/or Atelectasis Assessment Score: 5 Patient Assessment Clinical Findings Respiratory Pattern: 0 - RR 12 - 20; Patient only gets breathless with strenuous exercise. Breath Sounds: 2 - Diminished bilaterally Cough Effectiveness: 1 - Strong productive Sputum Production 2 - Small amount Level of Activity: 1 - Ambulatory with assist O2 needed to keep SpO2 greater than or equal to 92%: 0 - Room Air Assessment Score: 6 Total Assessment Score: 11 Breath Sounds: Inspiratory and expiratory clear and diminished bilaterally.. Cough and Sputum: A loose cough produced small amount of thick clear/white sputum.. Vital Signs: Resp: 18 (02/19/24 0600) Pulse: 72 (02/19/24 0800) Temp: 37.7 C (99.9 F) (02/19/24 08) BP: 146/71 (02/19/24 0800) SpO2: 94 % (02/19/24 08) PFT: Minimal Predicted IC: 1.0 L. Inspiratory capacity: 0.5L. Primary Service: Cardiac Surgery. Admitting Diagnosis: Aortic stenosis [I35.0] Unstable angina (HCC) [I20.0] Pulmonary Diagnosis: Atelectasis and Former smoker . * Progress Notes - Post-Op [facility] - Bill Kang MD - 02/19/2024 12:13 AM EST PROGRESS NOTE - CARDIAC SURGERY [facility]-[address] [address] Name: Alexis Garcia Location: [facility] [id number] Date: 02/19/2024 Time: 12:13 AM OPERATION: CABGX 3 MITCHELL to LAD, SVG to OM, PDA. AVR 25mm magna ease, occlusion left atrial appendage 45mm Medtromnic clip SURGEON: Bill Kang MD POD#: 3 PATIENT ISSUES/EVENTS: off milrinone, started on betablocker. Back in rate controlled afib. Coumadin started. Large gastric bubble on Xray yesterday with some abd distenion, now moving bowels PHYSICAL EXAM: General: no acute distress Heart Exam: ir regular rate and rhythm Lungs: normal respirations Abdominal Exam: abdomen soft, non-tender, no abnormal masses, and no hepatosplenomegaly - rounded and tympanic Extremities: warm and dry Incision: sternotomy - clean, dry and intact, vein harvest site - clean, dry and intact Neurological: alert Pulses: dorsalis pedis CURRENT CORE CARDIAC MEDICATIONS: Beta Kelsi: yes ASA: yes Statin: yes HILLARY-Inhibitor / ARB: no, explain -- normal LVEF POSTOPERATIVE COMPLICATIONS: none ADDITIONAL PROCEDURES: none ASSESSMENT/PLAN: Cardiovascular: EF 55%, hx of CAD/, hx of afib on eliquis Afib with with HR 70-90 Lopressor 25 Prior milrinone for low SVO2 off PM 1212 Central Line(s): Yes, reason: Hemodynamic monitoring Pacer Wires: yes Pulmonary: Acceptable saturations on NC Chest Tubes/Krzysztof Drains: out GI: Advance diet to regular as tolerated - some abd distention and gastric bubble H2 kelsi Bowel regimen LBM 02/17 /Renal: Creat / UO acceptable post op Robert: Yes, reason: fluid monitoring Hematology: Hgb and plts stable ASA/sub q heparin 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 Received products in OR Neuro/P.T./O.T.: Intact Some dizziness getting OOB to chair POD 1 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 Infectious Disease: No issues Periop ancef completed Endo: Periop insulin completed No hx of DM2 Disposition: ICU Plan: DC robert, IV lasix PRN Advance diet as tolerated - check KUB this AM - slightly improved but he is still somewhat nauseated so will keep on clears and continue aggressive bowel regimen Continue lopressor DC wires / CVC today Increase activity SHDAY Li Remains in chronic afib, rate controlled CV status stable Some abdominal distention Cont clear liquids Mobilize Diuresis Coumadin for afib * Pt Handout (on AVS) - Isela Hatfield RPh - 02/18/2024 8:43 AM EST Images from the original note were not included. Warfarin - Video Let's take a minute to talk about your medication. This is warfarin, and you should take your dose as directed by your doctor. Warfarin prevents and treats blood clots. To view the video go to this web address: https://bit.ly/[email or web address] Or, scan this QR code with your smart phone 2023 [employer] / [employer]. All Rights Reserved. * Pt Handout (on AVS) - Isela Hatfield RPh - 02/18/2024 8:43 AM EST [id number] Warfarin Brand Name(s): Coumadin, Jantoven; also available generically IMPORTANT WARNING: Warfarin may cause severe bleeding that can be life-threatening and even cause . Tell your doctor if you have or have ever had a blood or bleeding disorder; bleeding problems, especially in yourstomach or your esophagus (tube from the throat to the stomach), intestines, urinary tract or bladder, or lungs; high blood pressure; heart attack; angina (chest pain or pressure); heart disease; pericarditis (swelling of the lining (sac) around the heart); endocarditis (infection of one or more heart valves); a stroke or ministroke; aneurysm (weakening or tearing of an artery or vein); anemia (low number of red blood cells in the blood); cancer; chronic diarrhea; or kidney, or liver disease. Also tell your doctor if you fall often or have had a recent serious injury or surgery. Bleeding is more likely during warfarin treatment for people over 65 years of age, and it is also more likely during the first month of warfarin treatment. Bleeding is also more likely to occur for people who take high doses of warfarin, or take this medication for a long time. The risk for bleeding while takingwarfarin is also higher for people participating in an activity or sport that may result in seriousinjury. Tell your doctor and pharmacist if you are taking or plan to take any prescription or nonprescription medications, vitamins, nutritional supplements, and herbal or botanical products (See SPECIAL PRECAUTIONS), as some of these products may increase the risk for bleeding while you are takingwarfarin. If you experience any of the following symptoms, call your doctor immediately: pain, swelling, or discomfort, bleeding from a cut that does not stop in the usual amount of time, nosebleeds or bleeding from your gums, coughing up or vomiting blood or material that looks like coffee grounds, unusual bleeding or bruising, increased menstrual flow or vaginal bleeding, pink, red, or dark brown urine, red or tarry black bowel movements, headache, dizziness, or weakness. Some people may respond differently to warfarin based on their heredity or genetic make-up. Your doctor may order a blood test to help find the dose of warfarin that is best for you. Warfarin prevents blood from clotting so it may take longer than usual for you to stop bleeding if you are cut or injured. Avoid activities or sports that have a high risk of causing injury. Call your doctor if bleeding is unusual or if you fall and get hurt, especially if you hit your head. Keep all appointments with your doctor and the laboratory. Your doctor will order a blood test (PT [prothrombin test] reported as INR [international normalized ratio] value) regularly to check your body's response to warfarin. If your doctor tells you to stop taking warfarin, the effects of this medication may last for 2 to 5 days after you stop taking it. Your doctor or pharmacist will give you the heating engineer's patient information sheet (Medication Guide) when you begin treatment with warfarin and each time you refill your prescription. Read the information carefully and ask your doctor or pharmacist if you have any questions. You can also visit the Food and Drug Administration (FDA) website (https://www.fda.gov/downloads/Drugs/DrugSafety/haz373671.pdf) or the heating engineer's website to obtain the Medication Guide. Talk to your doctor about the risk(s) of taking warfarin. WHY is this medicine prescribed? Warfarin is used to prevent blood clots from forming or growing larger in your blood and blood vessels. It is prescribed for people with certain types of irregular heartbeat, people with prosthetic (replacement or mechanical) heart valves, and people who have suffered a heart attack. Warfarin is also used to treat or prevent venous thrombosis (swelling and blood clot in a vein) and pulmonary embolism (a blood clot in the lung). Warfarin is in a class of medications called anticoagulants ('bloodthinners'). It works by decreasing the clotting ability of the blood. HOW should this medicine be used? Warfarin comes as a tablet to take by mouth. It is usually taken once a day with or without food. Take warfarin at around the same time every day. Follow the directions on your prescription label carefully, and ask your doctor or pharmacist to explain any part you do not understand. Take warfarin exactly as directed. Do not take more or less of it or take it more often than prescribed by your doctor. Call your doctor immediately if you take more than your prescribed dose of warfarin. Your doctor will probably start you on a low dose of warfarin and gradually increase or decrease your dose based on the results of your blood tests. Make sure you understand any new dosing instructions from your doctor. Continue to take warfarin even if you feel well. Do not stop taking warfarin without talking to your doctor. Are there OTHER USES for this medicine? This medication may be prescribed for other uses; ask your doctor or pharmacist for more information. What SPECIAL PRECAUTIONS should I follow? Before taking warfarin, tell your doctor and pharmacist if you are allergic to warfarin, any other medications, or any of the ingredients in warfarin tablets. Ask your pharmacist or check the Medication Guide for a list of the ingredients. do not take two or more medications that contain warfarin at the same time. Be sure to check with your doctor or pharmacist if you are uncertain if a medication contains warfarin or warfarin sodium. tell your doctor and pharmacist what prescription and nonprescription medications, vitamins, andnutritional supplements you are taking or plan to take while taking warfarin. Your doctor may change the doses of your medications or monitor you carefully for side effects. the following nonprescription or herbal products may interact with warfarin: coenzyme Q10 (Ubidecarenone), Echinacea, garlic, Ginkgo biloba, ginseng, goldenseal, and Citlali's wort; omeprazole (Prilosec); famotidine (Pepcid AC); aspirin and nonsteroidal anti-inflammatory drugs (NSAIDS) such as ibuprofen (Advil, Motrin, others) and naproxen (Aleve). Be sure to let your doctor and pharmacist know that you are taking these medications before you start taking warfarin. Do not start any of thesemedications while taking warfarin without discussing with your healthcare provider. tell your doctor if you have or have ever had diabetes. Also tell your doctor if you have an infection, a gastrointestinal illness such as diarrhea, or sprue (an allergic reaction to protein foundin grains that causes diarrhea), or an indwelling catheter (a flexible plastic tube that is placed into the bladder to allow the urine to drain out). Tell your doctor if you are , think you might be , or plan to become while taking warfarin. women should not take warfarin unless they have a mechanical heart valve. Talk to your doctor about the use of effective control while taking warfarin. If you become while taking warfarin, call your doctor immediately. Warfarin may harm the fetus. tell your doctor if you are breast-feeding. if you are having surgery, including dental surgery, or any type of medical or dental procedure,tell the doctor or dentist that you are taking warfarin. Your doctor may tell you to stop taking warfarin before the surgery or procedure or change your dosage of warfarin before the surgery or procedure. Follow your doctor's directions carefully and keep all appointments with the laboratory if your doctor orders blood tests to find the best dose of warfarin for you. ask your doctor about the safe use of alcoholic beverages while you are taking warfarin. tell your doctor if you use tobacco products. Cigarette smoking may decrease the effectiveness of this medication. What SPECIAL DIETARY instructions should I follow? Eat a normal, healthy diet. Some foods and beverages, particularly those that contain vitamin K, can affect how warfarin works for you. Ask your doctor or pharmacist for a list of foods that contain vitamin K. Eat consistent amounts of vitamin K-containing food on a [id number] basis. Do not eat large amounts of leafy, green vegetables or certain vegetable oils that contain large amounts of vitamin K. Be sure to talk to your doctor before you make any changes in your diet. Talk to your doctor about eating grapefruit and drinking grapefruit juice while taking this medication. What should I do IF I FORGET to take a dose? Take the missed dose as soon as you remember it, if it is the same day that you were to take the dose. Do not take a double dose the next day to make up for a missed one. Call your doctor if you vladimir dose of warfarin. What SIDE EFFECTS can this medicine cause? Warfarin may cause side effects. Tell your doctor if any of these symptoms are severe or do not go away: gas abdominal pain bloating change in the way things taste loss of hair feeling cold or having chills If you experience any of the following symptoms, or those listed in the IMPORTANT WARNING section, call your doctor immediately: hives rash itching difficulty breathing or swallowing swelling of the face, throat, tongue, lips, or eyes hoarseness chest pain or pressure swelling of the hands, feet, ankles, or lower legs fever infection nausea vomiting diarrhea extreme tiredness lack of energy loss of appetite pain in the upper right part of the stomach yellowing of the skin or eyes flu-like symptoms You should know that warfarin may cause necrosis or gangrene ( of skin or other body tissues).Call your doctor immediately if you notice a purplish or darkened color to your skin, skin changes,ulcers, or an unusual problem in any area of your skin or body, or if you have a severe pain that occurs suddenly, or color or temperature change in any area of your body. Call your doctor immediately if your toes become painful or become purple or dark in color. You may need medical care right away to prevent amputation (removal) of your affected body part. Warfarin may cause other side effects. Call your doctor if you have any unusual problems while taking this medication. What should I know about STORAGE and DISPOSAL of this medication? Keep this medication in the container it came in, tightly closed, and out of reach of children. Store it at room temperature and away from excess heat, moisture (not in the bathroom), and light. Unneeded medications should be disposed of in special ways to ensure that pets, children, and otherpeople cannot consume them. However, you should not flush this medication down the toilet. Instead,the best way to dispose of your medication is through a medicine take-back program. Talk to your pharmacist or contact your local garbage/recycling department to learn about take-back programs in your community. See the FDA's Safe Disposal of Medicines website (https://goo.gl/c4Rm4p) for more information if you do not have access to a take-back program. It is important to keep all medication out of sight and reach of children as many containers (such as weekly pill minders and those for eye drops, creams, patches, and inhalers) are not child-resistant and young children can open them easily. To protect young children from poisoning, always lock safety caps and immediately place the medication in a safe location -- one that is up and away and outof their sight and reach. https://www.upandaway.org What should I do in case of OVERDOSE? In case of overdose, call the poison control helpline at . Information is also available online at https://www.poisonhelp.org/help. If the victim has collapsed, had a seizure, has trouble breathing, or can't be awakened, immediately call emergency services at 822. Symptoms of overdose may include the following: bloody or red, or tarry bowel movements spitting or coughing up blood heavy bleeding with your menstrual period pink, red, or dark brown urine coughing up or vomiting material that looks like coffee grounds small, flat, round red spots under the skin unusual bruising or bleeding continued oozing or bleeding from minor cuts What OTHER INFORMATION should I know? Carry an identification card or wear a bracelet stating that you take warfarin. Ask your pharmacistor doctor how to obtain this card or bracelet. List your name, medical problems, medications and dosages, and doctor's name and telephone number on the card. Tell all your healthcare providers that you take warfarin. Do not let anyone else take your medication. Ask your pharmacist any questions you have about refilling your prescription. It is important for you to keep a written list of all of the prescription and nonprescription (cand-ahf-ragzwjr) medicines you are taking, as well as any products such as vitamins, minerals, or otherdietary supplements. You should bring this list with you each time you visit a doctor or if you areadmitted to a hospital. It is also important information to carry with you in case of emergencies. This report on medications is for your information only, and is not considered individual patient advice. Because of the changing nature of drug information, please consult your physician or pharmacist about specific clinical use. The [employer] represents that the information provided hereunder was formulated with a reasonable standard of care, and in conformity with professional standards in the field. The [employer] makes no representations or warranties, express or implied, including, but not limited to, any implied warranty of merchantability and/or fitness for a particular purpose, with respect to such information and specifically disclaims all such warranties. Users are advised that decisions regarding drug therapy are complex medical decisions requiring the independent, informed decision of an appropriate health outdoor emergency care technician, and the information is provided for informational purposes only. The entire monograph for a drug should be reviewed for a thorough understanding of the drug's actions, uses and side effects. The [employer] does not endorse or recommend the use of any drug.The information is not a substitute for medical care. [facility] Patient Medication Information?. Copyright, 2023. [employer], [address], [address], [place], [place]. All Rights Reserved. Duplication for commercial use must be authorized by [facility]. Selected Revisions: August 21, 2016. [facility] Patient Medication Information?. Copyright, 2023 * Progress Notes - Post-Op Global - Bill Kang MD - 02/18/2024 12:02 AM EST PROGRESS NOTE - CARDIAC SURGERY [facility]-[address] [address] Name: Alexis Garcia Location: [facility] H773/A Date: 02/18/2024 Time: 12:02 AM OPERATION: CABGX 3 MITCHELL to LAD, SVG to OM, PDA. AVR 25mm magna ease, occlusion left atrial appendage 45mm Medtromnic clip SURGEON: Bill Kang MD POD#: 2 PATIENT ISSUES/EVENTS: PRBC and milrinone for lower SVO2 (30-40s), now up to around 50. Dizzy when getting OOB yesterday. PHYSICAL EXAM: General: no acute distress Heart Exam: regular rate and rhythm Lungs: normal respirations Abdominal Exam: abdomen soft, non-tender, no abnormal masses, and no hepatosplenomegaly Extremities: warm and dry Incision: sternotomy - clean, dry and intact, vein harvest site - clean, dry and intact Neurological: alert Pulses: dorsalis pedis CURRENT CORE CARDIAC MEDICATIONS: Beta Kelsi: no, explain -- low BP do not allow ASA: yes Statin: yes HILLARY-Inhibitor / ARB: no, explain -- normal LVEF POSTOPERATIVE COMPLICATIONS: none ADDITIONAL PROCEDURES: none ASSESSMENT/PLAN: Cardiovascular: EF 55%, hx of CAD/, hx of afib on eliquis NSR with HR 70s SVO2 30-40s so started on 0.25 milrinone with some improvement to almost 50 Central Line(s): Yes, reason: Hemodynamic monitoring Pacer Wires: yes Pulmonary: Acceptable saturations on NC Chest Tubes/Krzysztof Drains: Yes: on suction GI: Advance diet to regular as tolerated H2 kelsi Bowel regimen /Renal: Creat / UO acceptable post op Robert: Yes, reason: fluid monitoring Hematology: Hgb and plts stable ASA/sub q heparin 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 - will restart coumadin today Received products in OR Neuro/P.T./O.T.: Intact Some dizziness getting OOB to chair POD 1 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 Infectious Disease: No issues Periop ancef completed Endo: Periop insulin completed No hx of DM2 Disposition: ICU Plan: Continue milrinone Consider DC lines in AM after reviewing AM labs BP 130s but had dizziness yesterday-will restart some lopressor if needed Coumadin to start today Likely DC chest tubes - consider keeping wires one more day given prior CHB coming out of OR SHADY Li Stable D/c swan, CT, art line Mobilize diuresis * Respiratory Progress Note - Lilia Madden RRT - 02/17/2024 6:58 PM EST PATIENT DRIVEN PROTOCOL - Respiratory Care Services [address] [address] Name: Alexis Garcia Location: [facility] H773/A Date: 02/17/2024 Time: 6:58 PM Patient Driven Protocol Summary: Initial evaluation performed. This Treatment Plan and medications will be reviewed by the Primary Care Team for any contraindications. Respiratory Care Treatment Plan Pulmonary Volume Expansion Therapy: EzPAP Treatment Q6H to prevent or treat alveolar consolidation and atelectasis. Additional Pulmonary Volume Expansions: Incentive Spirometry BID to prevent or treat alveolar consolidation and atelectasis. . Secretion Management Treatment: Flutter [id number] to enhance mobilization of secretions. . The patient will be re-evaluated: within 48 hours. The Triage Level is: (Assessment Score = 6 -10) Level 4. Triage Level Definitions: Level 1 Severe Respiratory/Airway Compromise Level 2 Moderate Respiratory/Airway Compromise or high risk for pulmonary complications Level 3 Mild Respiratory/Airway Compromise or moderate risk for pulmonary complications Level 4 Episodic Respiratory/Airway Compromise or low risk for pulmonary complications Level 5 No Respiratory/Airway Compromise Triage 1 Triage 2 Triage 3 Triage 4 Triage 5 greater than 20 16 - 20 11 - 15 6 - 10 0 - 5 Medical Record Assessment Clinical Findings Pulmonary Status: 0 - No Smoking or quit greater than 10 years ago Surgical Status: 3 - Thoracic or Upper Abdominal Chest X-Ray: 2 - Infiltrates and/or Atelectasis Assessment Score: 5 Patient Assessment Clinical Findings Respiratory Pattern: 0 - RR 12 - 20; Patient only gets breathless with strenuous exercise. Breath Sounds: 2 - Diminished bilaterally Cough Effectiveness: 0 - Strong non-productive Sputum Production: 0 - No sputum production Level of Activity: 1 - Ambulatory with assist O2 needed to keep SpO2 greater than or equal to 92%: 1 - Oxygen 1-3 LPM or FiO2 less than 35% Assessment Score: 4 Total Assessment Score: 9 Breath Sounds: Inspiratory and expiratory clear and diminished bilaterally in the bases.. Cough and Sputum: A loose cough produced no sputum... CXR: EXAM XR CHEST 1 VIEW-02/17/2024 5:40 am HISTORY follow up postop open heart COMPARISON XR chest 02/16/2024. TECHNIQUE Single portable frontal view of the chest. FINDINGS Lines/Tubes: Extubation and removal of the gastric suction tube. Similar right IJ approach [place] catheter and lower thoracic drains. Lungs/Pleura: Decreased lung volumes with slight increase in bibasilar atelectasis. No discernible pleural effusion or pneumothorax. Heart/Mediastinum: Unchanged contours. Left atrial appendage clip. Aortic valve repair. Bones/Soft Tissues: Median sternotomy. Upper Abdomen: Visualized portions are unremarkable. IMPRESSION IMPRESSION Decreased lung volumes with slight increase in bibasilar atelectasis. . Vital Signs: Resp: 22 (02/17/24 1800) Pulse: 76 (02/17/24 1800) Temp: 36.9 C (98.4 F) (02/16/24 0515) BP: 132/70 (02/17/24 1800) SpO2: 95 % (02/17/24 1800) PFT: Minimal Predicted IC: 1.03 L. Inspiratory capacity: 0.5L. Primary Service: Cardiac Surgery. Admitting Diagnosis: Aortic stenosis [I35.0] Unstable angina (HCC) [I20.0] Pulmonary Diagnosis: Atelectasis and Former smoker . Prescriptions/Home Medications/Durable Medical Equipment: None. Recommended New home medications/durable medical equipment/outpatient pulmonary/sleep referral: None. * Ancillary Progress Note - Ly Soto RN - 02/17/2024 11:04 AM EST CARE MANAGEMENT - ADULT INITIAL SCREENING [facility]-[address] [address] Name: Alexis Garcia Location: [facility] H773 Date: 02/17/2024 Time: 11:04 AM Discussed patient with the interdisciplinary care team. This Life Manager performed a chart review and met with Alexis, his and daughter at bedside to complete admission screen and assessed needsfor transition planning. The ambulatory care nurse role and services were explained and emotional support was provided. Chief Complaint: No chief complaint on file. Prior Living Arrangements What was your living situation prior to admission/observation?: Independently;With Spouse () Living Quarters: Other - Comment (mobile home) (02/17/241101) Number of steps to enter living quarters:: 3 (02/17/241101) Do you have serious difficulty walking or climbing stairs? (5 years old or older): No (02/13/241853) History of falling: No (02/17/24 0000) Prior Level of Functioning Describe the patient's ability prior to admission/observation to perform ADLs: Performs independently (02/17/241101) Requires assistance with: Bathing (02/16/241999) Describe the patient's mobility status prior to admission: Patient ambulates independently (02/17/241101) Patient uses assistive device: No (02/17/241101) Caregiver Information Emergency Contacts None on File Other Contacts Name Relation Home Work Mobile Debbie Garcia Spouse [phone] Alexis Garcia Adult Child [phone] Ruth Loevtt Adult Child [phone] Risk Stratification/Psychosocial/Care Gaps Risk Stratification Psycho Social / Medical Concerns Identified: Multiple Comorbidities;New serious diagnosis;Adjustment to illness/injury (02/17/241101) Accessed Neighborly to connect patients to social care resources: No (02/17/241101) OBRA or OPTIONS needed for placement: No (02/17/241101) Readmission Risk Score: 12.68 (02/17/24 0800) AM-PAC Score With Stairs : 14 (02/17/24 0700) Prior to Admission Services Services Prior to Admission PERISHABLE FREIGHT INSPECTOR Services (Services received within the last 30 days with exception, Psych within last two years): N/A (02/17/24 110) [place] Dept[employer] of Aging (PDA) Waiver Program: N/A (02/17/241101) PERISHABLE FREIGHT INSPECTOR Transportation (Services received within the last 30 days): Family/Friends Personal Vehicle;Patient drives self (02/17/241101) Outpatient Life Manager: No care steamfitter supervisor to display Patient/Family Expectations: Alexis lives with his spouse in a mobile home with 3 CAROL ANN. He does not use any DME. Denies any recent home health or facility stays. He declined home health services at discharge. Alexis and his and both active drivers. For further screening information, please refer to the Care Management flow document. * Diagnostic Clarification - Mani Stover CRNP - 02/17/2024 9:15 AM EST The patient has been diagnosed with Acute postoperative blood loss anemia. * Progress Notes - Post-Op Global - Bill Kang MD - 02/17/2024 12:04 AM EST PROGRESS NOTE - CARDIAC SURGERY [facility]-[address] [address] Name: Alexis Garcia Location: [facility] H773/A Date: 02/17/2024 Time: 12:04 AM OPERATION: CABGX 3 MITCHELL to LAD, SVG to OM, PDA. AVR 25mm magna ease, occlusion left atrial appendage 45mm Medtromnic clip SURGEON: Bill Kang MD POD#: 1 PATIENT ISSUES/EVENTS: extubated routinely. On low dose levo for BP. PHYSICAL EXAM: General: no acute distress Heart Exam: regular rate and rhythm Lungs: normal respirations Abdominal Exam: abdomen soft, non-tender, no abnormal masses, and no hepatosplenomegaly Extremities: warm and dry Incision: sternotomy - clean, dry and intact, vein harvest site - clean, dry and intact Neurological: alert Pulses: dorsalis pedis CURRENT CORE CARDIAC MEDICATIONS: Beta Kelsi: no, explain -- low BP do not allow ASA: yes Statin: yes HILLARY-Inhibitor / ARB: no, explain -- normal LVEF POSTOPERATIVE COMPLICATIONS: none ADDITIONAL PROCEDURES: none ASSESSMENT/PLAN: Cardiovascular: EF 55%, hx of CAD/, hx of afib on eliquis NSR with HR 60s RA 8, PA 41/16, SVO2 65, CI 2.3 Levo for BP Received 2 L volume post op Central Line(s): Yes, reason: Hemodynamic monitoring Pacer Wires: yes Pulmonary: Extubated routinely Acceptable saturations on NC Chest Tubes/Krzysztof Drains: Yes: on suction GI: NPO Advance diet to regular as tolerated H2 kelsi Bowel regimen /Renal: Creat / UO acceptable post op Robert: Yes, reason: fluid monitoring Hematology: Hgb and plts stable ASA/sub q heparin 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 Received products in OR Neuro/P.T./O.T.: Intact 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 Infectious Disease: No issues Periop ancef Endo: Periop insulin No hx of DM2 Disposition: ICU Plan: Routine post op care Wean levo as able Look to remove monitoring lines in AM Check hgb in AM ?coumadin for afib - was on eliquis PERISHABLE FREIGHT INSPECTOR SHADY Li Stable Will transfuse one unit D/c swan Pulmonary toilet Restart coumadin tomorrow * Care Plan - Devon Melendez RN - 02/16/2024 4:34 AM EST Clinical Goal(s): pt will report chest pain (02/15/24 0700) Possible barriers to meeting goal(s)/advancing plan of care: Pt diagnosis Stability of the patient: Moderately stable - low risk of patient condition declining or worsening Summary regarding today's goal(s): Met: Pt reported no new chest pain Recommendations: Continue plan of care * Progress Notes - Non-Billable - Fernando Peacock MD - 02/15/2024 7:48 PM EST POST-CATHETERIZATION CHECK NOTE Name: Alexis Garcia Date of : 1950 Alexis Garcia is 74 year old male who underwent Coronary angiography. Patient seen and examined at bedside. Results were discussed with the patient and questions were answered to satisfaction. Patient denies any numbness, tingling or weakness in their right arm or hand. Patient feels comfortable and has no dyspnea, chest pain, cough, lightheadedness, or leg swelling. Access: right radial artery Post-op Diagnosis: Coronary artery disease Finding: Multivessel coronary artery disease, not amenable to stenting [id number] with severe calcific disease (Berger 1-1-1). There was significant dampening every time we engaged the LMCA and we were unable to pass an IVUS wire into the LAD mRCA 95% stenosis followed by distal RCA 70% stenosis Additional Findings: Coronary disease - hemodynamically significant Physical Examination: BP 121/57 | Pulse 49 | Temp 37 C (98.6 F) (Tympanic) | Resp 18 | Ht 1.727 m (5' 8") | Wt 95.8 kg (211 lb 3.2 oz) | SpO2 97% | BMI 32.11 kg/m | BSA 2.14 m Constitutional: Conscious, alert, cooperative and in no immediate distress HEENT: NC/AT, Tongue: moist Neck: Supple, no JVD Chest: Good bilateral air entry, Clear to auscultation Heart: S1 S2 audible, rhythm irregularly irregular, early-peaking midsystolic murmur loudest at right upper sternal border Abdomen: Soft, BS+, non-tender, no rigidity, guarding or rebound Extremities: R radial access site without any significant ecchymoses or hematoma. No audible bruit.Sensation and strength intact. Peripheral pulses intact. Assessment and plan Alexis Garcia is 74 year old male with PMHx of atrial flutter on Eliquis, hypertrophic cardiomyopathy, hypertension, hyperlipidemia who presented from [facility] for evaluation of unstable angina aortic stenosis, now s/p cardiac cath today which shows severe multivessel disease not amenable to PCI, pending cardiac surgery evaluation for CABG. NPO after midnight for possible CABG tomorrow. Rest of care per primary team. Fernando Peacock MD Internal Medicine Resident * Ancillary Progress Note - Denise Diop RVT - 02/15/2024 3:24 PM EST PROCEDURE - Vascular Lab [address] [address] Name: Alexis Garcia Location: [address] Date: 02/15/2024 Time: 3:24 PM FINAL PHYSICIAN REPORT TO FOLLOW. PROCEDURE: Right side: Carotid duplex Carotid duplex shows no evidence of hemodynamically significant carotid stenosis. Left side: Carotid duplex Carotid duplex shows no evidence of hemodynamically significant carotid stenosis. TECH NAME: Denise Diop RVT * Ancillary Progress Note - Denise Diop RVT - 02/15/2024 3:20 PM EST PROCEDURE - Vascular Lab [address] [address] Name: Alexis Garcia Location: [address] Date: 02/15/2024 Time: 3:20 PM FINAL PHYSICIAN REPORT TO FOLLOW. PROCEDURE: Exam done, please see final report. TECH NAME: Denise Diop RVT * Ancillary Progress Note - Edi Pollard RCIS - 02/15/2024 9:33 AM EST [address] [address] Ancillary Progress Note Patient Name: Alexis Garcia Date: 02/15/2024 Patient will be escorted to Cardiac Recovery Suite, report given to CRS. We performed a Diagnostic Cardiac Catheterization procedure on this patient.. The right radial artery was used for access witha 6 [place] sheath. A Radial Band was applied at 10 mL of air to close the site. There is no hematoma and no ooze from the cath site noted. No sterile dressing applied to site. Radial band applied to site Distal pulses were palpated and instructions to patient were given. There were no complicationsduring the case. Please see the MAR for the medications that were given. See Cath Procedure Log forpatient vitals during the case. * Progress Notes - Non-Billable - Jordana Celestin DO - 02/15/2024 8:55 AM EST INFORMED CONSENT FOR CARDIAC CATH AND INTERVENTIONAL PROCEDURES: Dr. Herbert discussed with patient the alternatives to cardiac cath including medical therapy and if appropriate exercise testing. Dr. Herbert discussed the risks of cath including 05/999 , DC, CVA and 2/100 risk of allergic reaction, bleeding, infection, arrhythmia requiring shock, damage to artery requiring surgery or amputation, radiation skin sterling. Dr. Herbert discussed technique of catheterization. The patient indicated understanding and a preference for proceeding with catheterization considering these factors. Dr. Herbert discussed with the patient coronary intervention and alternatives including bypass surgery and medical therapy. Dr. Herbert discussed the risks of intervention including 5-10% risk of DC, 5% risk of bleeding possibly requiring transfusion, 1% risk of , 1% risk of emergency CABG, and 20- 30% risk of restenosis, and the chance that even a successful procedure will not relieve symptoms if they are not due to cardiac ischemia. The patient would like to have ad hoc intervention done at the time of the catheterization if it seems appropriate. Cosigned by Kateryna Herbert MD at 02/15/2024 11:54 AM EST * Communication - Edmundo Braden MD - 02/15/2024 7:47 AM EST INPATIENT CARDIAC CATHETERIZATION CHECKLIST Case Request Details Requested Procedure L&C Indication Unstable angina/ valvular disease Attending Physician Dr. Chavez Patient Condition Patient Able to Consent? If no, ensure patient is accompanied by a family member Yes Full Code? Yes Hemodynamically Stable? Yes Oxygen Requirement No Able to tolerate lying flat? Yes NPO for at least 6 hours? If no, when was last PO intake Yes If Female <55 years old, negative test, total hysterectomy, or last menses >1 year?N/A Allergies Allergy to dye? No Allergy to aspirin? No Allergy to heparin? No Labs Last Creatinine 1.0 Last Hemoglobin 14.4 Last Platelet Count 187 Last INR 1.1 Medications On Oral Anticoagulant? If yes, when was last dose Yes, Warfarin prior to 02/10 Last Administered dose of Aspirin 12 AM Other Information Access Site Limitations? (ie: prior failed attempts, known access-related PAD, tortuosity, scar, rash/infection, stent/graft/endartectomy, AV fistula, severe raynaud's, IVC Filter) No CABG Anatomy and Patency, if Applicable No Case Specific Considerations? (ie: LV thrombus, aortic or aortic valve vegetation/thrombus, altered mentation, agitation) N/A Edmundo Braden MD Cardiovascular Disease Fellow - PGY5 [facility] * Care Plan - Marva Saldana RN - 02/15/2024 5:09 AM EST Clinical Goal(s): Patient will remain free of injury. (02/15/24 0000) Possible barriers to meeting goal(s)/advancing plan of care: Hospital setting Stability of the patient: Moderately stable - low risk of patient condition declining or worsening Summary regarding today's goal(s): Met: Patient remained free of injury this shift. Recommendations: Continue purposeful hourly rounds. * Care Plan - Marva Saldana RN - 02/14/2024 4:47 AM EST Clinical Goal(s): Patient will remain free of injury this shift. (02/14/24 0000) Possible barriers to meeting goal(s)/advancing plan of care: heparin gtt Stability of the patient: Moderately stable - low risk of patient condition declining or worsening Summary regarding today's goal(s): Met: Patient remained free of injury this shift. Recommendations: Purposeful hourly rounds. * Pt Handout (on AVS) - Louann Klein RN - 02/14/2024 12:57 AM EST Images from the original note were not included. [id number] Unstable Angina Angina is a feeling of pain, tightness, pressure, or discomfort in and around your chest. It can occur if your heart muscle isn?t getting enough oxygen-rich blood. There are 2 types of angina. They are stable and unstable. Stable angina occurs at times you can predict. It is constant in how long it lasts and how intense it is. This might be during or after exercise or when you exert yourself. This type of angina can often be managed with medicine or rest. Unstable angina does not occur at times you can predict. It can be more intense and last longer. And it may not respond to the usual forms of treatment. It's a warning that a heart attack (acute myocardial infarction) is possible in the near future. For this reason, it should be treated right away. If you have questions, be sure to ask your health care provider. Coronary disease causes angina Your heart is a muscle. It gets oxygen from the blood sent through the coronary arteries. Coronary artery disease (CAD) occurs when fatty material (plaque) builds up within your artery sebastian. Plaque irritates and inflames the artery wall. The buildup of plaque can reduce blood flow to your heart. This reduces the amount of oxygen your heart gets. The lower amount of oxygen can cause thechest pain of angina. Unstable angina is usually caused by coronary artery disease (CAD). Other symptoms of angina include feeling lightheaded, shortness of breath, nausea, belly pain, heart palpitations, and sweating for no clear reason. The difference between stable and unstable angina Stable angina. This type of angina occurs most often during exercise or times of stress. Stable means that this type of angina is consistent and predictable. Stable angina goes away when you rest or take nitroglycerin. This is a medicine that allows the heart muscle to relax. It helps increase blood flow through your arteries. Unstable angina. Unstable angina is described as chest pain that occurs without warning, even when you rest. You may also be told you have unstable angina if you have stable angina that becomes more severe, lasts longer, or that is not relieved by rest or medicine. How unstable angina feels Unstable and stable angina have the same symptoms. With unstable angina, the symptoms are more severe and last longer. Symptoms include: Discomfort, aching, heaviness, tightness, squeezing, or pressure. You may feel this in your chest or back. You may also feel it in your arm, shoulder, neck, jaw, or upper belly. Feeling more tired than usual for no clear reason. Feeling lightheaded. Nausea. Sweating for no clear reason. Shortness of breath. Heart palpitations. Not everyone who has a heart attack has the typical symptom of chest pain. You may be having a "silent" (unrecognized) heart attack if you lose consciousness (syncope), or you have confusion, weakness, or changes in thinking (delirium). Get medical help right away to find out if you are having a heart attack or another serious condition. Your evaluation Because unstable angina can lead to a heart attack, it is viewed as an emergency. If you are havingsymptoms of unstable angina, you should call 911 right away. Your health care provider will ask about your symptoms and examine you. Tests will be done quickly. Common tests include: Blood tests.These can help tell if there is damage to your heart. They may be repeated often, usually every 6 to 8 hours until you have 3 sets. They can also check for cholesterol in the blood, which leads to plaque buildup. They can check for other health problems that affect the heart, such asdiabetes. Electrocardiogram (ECG). This test records your heart?s electrical patterns. A resting ECG can show if you have damage to your heart muscle or a change in the way your heart beats. It's the quickest way to diagnose an acute heart attack. But not every heart attack is found by an ECG. Once your symptoms are more stable, a stress ECG (stress test) can show how well the blood flows to your heart while you exercise or when a medicine is given to you. Angiography. This test can show where your arteries are narrowed. The health care provider puts a long tube (catheter) in an artery in your arm, neck, or leg (groin). They slowly guide it to your heart. Contrast material is sent through the tube and into the coronary arteries. This makes the arteries show up clearly on X-rays. This helps show any blockages or areas where plaques have narrowed t he artery. Treating unstable angina Your treatment will depend on the results of your tests. Possible treatments include: Observation. If your symptoms are severe, you may need to stay in the hospital. If your chest pain gets better, the tests show no sign of damage to your heart, and your stress test shows you are at low risk for a future heart attack, you may be able to go home. Medicines. Your health care provider will likely give you nitroglycerin. You also may be given medicines that help prevent blood clots, such as aspirin. And you may be given medicines to help reduce your blood pressure or slow your heart rate. Procedures to improve blood flow. If your chest pain doesn't get better, your health care provider may suggest procedures to improve blood flow to your heart muscle. These can include angioplasty with a stent or bypass surgery. Your provider will tell you more about these treatments if you need them. Lifestyle changes. Lifestyle changes usually include not smoking, eating healthy foods, losing weight, and getting regular exercise. These changes will take time to reduce your risk of having a heart attack. For them to work, you will need to do them for the mcc. The sooner you start, the better it will be for your overall health. If you have other health problems, such as high blood pressure, diabetes, or high cholesterol, these need to be treated as well. They can increase your risk for a heart attack. Lifestyle changes can make unstable angina attacks less frequent and less severe. Staying away from alcohol and stimulants can reduce the stress on your heart as well. They also help you manage CAD and reduce your risk for a heart attack. When taking nitroglycerin If your health care provider prescribes nitroglycerin, be sure to follow their instructions on how to use it. Also be sure to tell your provider if you?re taking any other medicines. This includes other prescription and [id number] medicines, as well as herbs and other supplements. Talk to your health care provider before you take nitroglycerin if you take medicines to treat erectile dysfunction or pulmonary hypertension. These can include sildenafil, tadalafil, or vardenafil. Taking thesemedicines together can cause a dangerous drop in blood pressure. When to call 911 Call 911 or go to the emergency room (ER) right away if your chest pain: Occurs when you?re not active. Wakes you up from sleep. Comes back and is not relieved by your usual dose of nitroglycerin. Occurs with weakness, dizziness, fainting, heavy sweating, nausea, or vomiting. Lasts longer than 5 minutes. Feels like it's getting worse. Last Reviewed Date: 2023 00:00:00 [id number] [employer]. All rights reserved. This information is not intended as a substitute for professional medical care. Always follow your healthcare professional's instructions. documented in this encounter Plan of Treatment Upcoming Encounters Date Type Department Care Team (Late st Contact Info) Description 02/22/2024 5:10 PM EST Anticoagulation Pharmacy, [address] [facility] [phone] [facility] [address] [place] [address] 02/23/2024 8:50 AM EST [facility] Pharmacy, [address] [facility] [phone] [facility] [address] [place] [address] 02/26/2024 12:30 PM EST Office Visit Cardiothoracic Surg [facility] [address] [place] [address] Eloy Gipson PA-C [address] [place] [address] 03/23/2024 2:15 PM EST Office Visit Cardiothoracic Surg [facility] [address] [place] [address] Bill Kang MD [address] [place] [address] 03/25/2024 10:00 AM EST Office Visit Cardiology, [facility] [address] [facility] [place] [address] Idalmis Mccrary CRNP [address] [facility] [place] [address] 05/06/2024 8:20 AM EST Office Visit [facility] [address] [place] [id number] Rashawn Obrien MD [address] [place] [address] 06/17/2024 7:15 AM EDT Cardiac Studies Cardiac Studies, [facility] [address] [facility] [place] [address] 07/05/2024 8:00 AM EDT Office Visit Cardiology, [facility] [address] [facility] [place] [address] Idalmis Mccrary CRNP [address] [facility] [place] [id number] Scheduled Orders Name Type Priority Associated Diagnoses Orde r Schedule EKG EKG Routine Chest pain One Time for 1 Occurrences starting 02/13/2024 until 02/13/2024 EKG EKG Routine Status post surgery One Time for 1 Occurrences starting 02/17/2024 until 02/17/2024 EXTUBATION Procedures Routine One Time for 1 Occurrences starting 02/16/2024 until 02/16/2024 Scheduled Procedures Name Priority Associated Diagnoses Date/Ti me COLONOSCOPY FLEXIBLE PROXIMAL DIAGNOSTIC Recall History of colon polyps Scheduled Referrals Name Type Priority Associated Diagnoses Orde r Schedule CARDIAC REHAB REFERRAL OP Referral Within 30 days (routine) Aortic valve stenosis, etiology of cardiac valve disease unspecified 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 S/P AVR (aortic valve replacement) Ordered: 02/17/2024 ANTI-COAGULATION REFERRAL OP Referral Within 3 days (urgent) S/P CABG x 3 S/P AVR (aortic valve replacement) Paroxysmal atrial fibrillation (HCC) Ordered: 02/17/2024 Health Maintenance Due Date Last Done Comments Cologuard 01/09/1996 Fecal Occult Blood Test 01/09/1996 Sigmoidoscopy 01/09/1996 Zoster Vaccines (2 of 3) 07/14/2012 05/19/2012 Depression Screening 10/18/2020 10/19/2019 Colonoscopy 07/01/2022 07/01/2017, 06/08, 02/11/2013, Additional history exists Colorectal Cancer Screening 07/01/2022 Adult Wellness Visit 01/23/2023 01/23/2022 COVID-19 Vaccine (3 - 2023- season) 2023 05/17/2020, 04/17/2020 GFR 02/20/2025 02/21/2024, 02/06, 02/19/2024, Additional history exists Albumin/Creatinine Ratio 02/09/2026 023, [...] this encounter Medical Devices Implanted Type Area Copper Tapper Device Identifier Shelf Expiration Date Model / Serial / Lot Suture Steel 6 B&S19 M654g - [id number] Implanted:Qty: 7 on 02/16/2024 by Bill Kang MD at OR [facility] N/A: Sternum JNJ : [employer] 11/06/2028 M654G / / [id number] Clip Atrial Penditure 45mm - [id number] Implanted:Qty: 1 on 02/16/2024 by Bill Kang MD at OR [facility] N/A: Heart [employer] : CRM [id number] 05/27/2024 RICHIE C45 / / [id number] Valve Pericardial 25mm - [id number] - [id number] Implanted:Qty: 1 on 02/16/2024 by Bill Kang MD at OR [facility] N/A: Heart [employer] [id number] 07/05/2027 [id number] / [id number] / [id number] Marker Coronary - [id number] Implanted:Qty: 2 on 02/16/2024 by Bill Kang MD at OR [facility] N/A: Aorta [employer] 12/06/2026 AM-SD / / [id number] documented as of this encounter Procedures Procedure Name Priority Date/Time Associated Diagnosis Comments XR CHEST 1 VIEW Routine 02/21/2024 5:53 AM EST DIFFERENTIAL, AUTOMATED STAT 02/21/2024 4:39 AM EST BASIC METABOLIC PANEL STAT 02/21/2024 4:39 AM EST CBC STAT 02/21/2024 4:39 AM EST PT INR Routine 02/21/2024 4:39 AM EST CBC STAT 02/21/2024 4:39 AM EST MAGNESIUM STAT 02/21/2024 4:39 AM EST XR CHEST 1 VIEW Routine 02/20/2024 5:55 AM EST DIFFERENTIAL, AUTOMATED STAT 02/20/2024 4:40 AM EST BASIC METABOLIC PANEL STAT 02/20/2024 4:40 AM EST CBC STAT 02/20/2024 4:40 AM EST PT INR Routine 02/20/2024 4:40 AM EST CBC STAT 02/20/2024 4:40 AM EST MAGNESIUM STAT 02/20/2024 4:40 AM EST XR ABDOMEN 1 VIEW Routine 02/19/2024 6:0 2 AM EST Other specified diseases of gallbladder XR CHEST 1 VIEW Routine 02/19/2024 6:01 AM EST Encounter for surgical aftercare following surgery on the circulatory system Other specified symptoms and signs involving the circulatory and respiratory systems DIFFERENTIAL, AUTOMATED STAT 02/19/2024 5:00 AM EST BASIC METABOLIC PANEL STAT 02/19/2024 5:00 AM EST CBC STAT 02/19/2024 5:00 AM EST PT INR Routine 02/19/2024 5:00 AM EST CBC STAT 02/19/2024 5:00 AM EST MAGNESIUM STAT 02/19/2024 5:00 AM EST XR ABDOMEN 1 VIEW Routine 02/18/2024 6:3 5 AM EST Atelectasis Abdominal distension (gaseous) XR CHEST 1 VIEW Routine 02/18/2024 6:23 AM EST Atelectasis Abdominal distension (gaseous) DIFFERENTIAL, AUTOMATED STAT 02/18/2024 3:58 AM EST BASIC METABOLIC PANEL STAT 02/18/2024 3:58 AM EST O2 SATURATION, VENOUS STAT 02/18/2024 3:58 AM EST CBC STAT 02/18/2024 3:58 AM EST PT INR Routine 02/18/2024 3:58 AM EST CBC STAT 02/18/2024 3:58 AM EST MAGNESIUM STAT 02/18/2024 3:58 AM EST WHOLE BLOOD PROFILE, ARTERIAL STAT 02/17/2024 1:37 PM EST O2 SATURATION, VENOUS STAT 02/17/2024 11:59 AM EST CBC STAT 02/17/2024 11:59 AM EST TRANSFUSE PACKED RED BLOOD CELLS STAT 02/17/2024 9:08 AM EST HC COMPATIBILITY ELECTRONIC CROSSMATCH STAT 02/17/2024 8:10 AM EST XR CHEST 1 VIEW Routine 02/17/2024 5:40 AM EST Encounter for surgical aftercare following surgery on the circulatory system Atelectasis O2 SATURATION, VENOUS Routine 02/17/2024 4:59 AM EST GLUCOSE METER, POINT OF CARE [facility] 02/17/2024 4:03 AM EST WHOLE BLOOD PROFILE, ARTERIAL STAT 02/17/2024 4:00 AM EST DIFFERENTIAL, AUTOMATED STAT 02/17/2024 3:59 AM EST BASIC METABOLIC PANEL STAT 02/17/2024 3:59 AM EST O2 SATURATION, VENOUS STAT 02/17/2024 3:59 AM EST CBC STAT 02/17/2024 3:59 AM EST CBC STAT 02/17/2024 3:59 AM EST MAGNESIUM STAT 02/17/2024 3:59 AM EST GLUCOSE METER, POINT OF CARE [facility] 02/17/2024 2:03 AM EST GLUCOSE METER, POINT OF CARE [facility] 02/17/2024 12:07 AM EST GLUCOSE METER, POINT OF CARE [facility] 02/16/2024 9:59 PM EST WHOLE BLOOD PROFILE, ARTERIAL STAT 02/16/2024 8:00 PM EST GLUCOSE METER, POINT OF CARE [facility] 02/16/2024 7:59 PM EST BASIC METABOLIC PANEL STAT 02/16/2024 7:55 PM EST CBC STAT 02/16/2024 7:55 PM EST MAGNESIUM STAT 02/16/2024 7:55 PM EST WHOLE BLOOD PROFILE, ARTERIAL STAT 02/16/2024 6:31 PM EST GLUCOSE METER, POINT OF CARE [facility] 02/16/2024 5:58 PM EST WHOLE BLOOD PROFILE, ARTERIAL STAT 02/16/2024 5:08 PM EST GLUCOSE METER, POINT OF CARE [facility] 02/16/2024 3:58 PM EST WHOLE BLOOD PROFILE, ARTERIAL STAT 02/16/2024 3:56 PM EST HC ECG TRACING ONLY STAT 02/16/2024 3 :02 PM EST S/P AVR WHOLE BLOOD PROFILE, ARTERIAL STAT 02/16/2024 2:56 PM EST XR CHEST 1 VIEW STAT 02/16/2024 2:54 PM EST Encounter for surgical aftercare following surgery on the circulatory system Pneumothorax, unspecified Presence of other specified devices XR ABDOMEN 1 VIEW STAT 02/16/2024 2:5 4 PM EST Encounter for fitting and adjustment of other gastrointestinal appliance and device TEG (THOMROBOELASTOGRAPH) PANEL STAT 02/16/2024 2:24 PM EST TEG (THROMBOELASTOGRAPH), HEPARINASE STAT 02/16/2024 2:24 PM EST WHOLE BLOOD PROFILE, ARTERIAL STAT 02/16/2024 2:24 PM EST TEG (THROMBOELASTOGRAPH) STAT 02/16/2024 2:24 PM EST BASIC METABOLIC PANEL STAT 02/16/2024 2:24 PM EST HEPARIN, UNFRACTIONATED STAT 02/16/2024 2:24 PM EST ANTITHROMBIN III ACTIVITY STAT 02/16/2024 2:24 PM EST O2 SATURATION, VENOUS STAT 02/16/2024 2:24 PM EST PT INR STAT 02/16/2024 2:24 PM EST APTT STAT 02/16/2024 2:24 PM EST FIBRINOGEN STAT 02/16/2024 2:24 PM EST CBC STAT 02/16/2024 2:24 PM EST MAGNESIUM STAT 02/16/2024 2:24 PM EST BLOOD GAS WITH CHEMISTRY, POINT OF CARE [facility] 02/16/2024 2:21 PM EST GLUCOSE METER, POINT OF CARE [facility] 02/16/2024 2:16 PM EST HC ECG TRACING ONLY STAT 02/16/2024 2 :12 PM EST Status post surgery TRANSFUSE PLASMA Routine 02/16/2024 1:40 PM EST HC DOPPLER ECHO COMPLETE Routine 02/16/2024 1:12 PM EST Valvular heart disease HC DOPPLER ECHO COMPLETE Routine 02/16/2024 1:12 PM EST Valvular heart disease HC FRESH FROZEN PLASMA W/I 8 HRS EA UNIT Routine 02/16/2024 1:05 PM EST XR CHEST 1 VIEW STAT 02/16/2024 1:04 PM EST Encounter for surgical aftercare following surgery on the circulatory system Pneumothorax, unspecified Other nonspecific abnormal finding of lung field Presence of other specified devices TRANSFUSE PLATELETS Routine 02/16/2024 1 :04 PM EST TRANSFUSE PLASMA Routine 02/16/2024 12:4 7 PM EST BLOOD GAS WITH CHEMISTRY, POINT OF CARE [facility] 02/16/2024 12:25 PM EST BLOOD GAS WITH CHEMISTRY, POINT OF CARE [facility] 02/16/2024 12:24 PM EST WHOLE BLOOD PROFILE, ARTERIAL STAT 02/16/2024 12:22 PM EST ACT, POINT OF CARE [facility] 02/16/2024 12 :22 PM EST TEG (THOMROBOELASTOGRAPH) PANEL STAT 02/16/2024 12:21 PM EST TEG (THROMBOELASTOGRAPH), HEPARINASE STAT 02/16/2024 12:21 PM EST TEG (THROMBOELASTOGRAPH) STAT 02/16/2024 12:21 PM EST PT INR STAT 02/16/2024 12:21 PM EST APTT STAT 02/16/2024 12:21 PM EST FIBRINOGEN STAT 02/16/2024 12:21 PM EST CBC STAT 02/16/2024 12:21 PM EST ACT, POINT OF CARE [facility] 02/16/2024 11 :42 AM EST BLOOD GAS WITH CHEMISTRY, POINT OF CARE [facility] 02/16/2024 11:37 AM EST ACT, POINT OF CARE [facility] 02/16/2024 11 :10 AM EST BLOOD GAS WITH CHEMISTRY, POINT OF CARE [facility] 02/16/2024 11:05 AM EST HC FRESH FROZEN PLASMA W/I 8 HRS EA UNIT Routine 02/16/2024 10:55 AM EST ACT, POINT OF CARE [facility] 02/16/2024 10 :40 AM EST HC PRE POOLED LR PLATELETS ACRODOSE EA Routine 02/16/2024 10:35 AM EST ACT, POINT OF CARE [facility] 02/16/2024 10 :07 AM EST TEG (THOMROBOELASTOGRAPH) PANEL Routine 02/16/2024 9:57 AM EST TEG (THROMBOELASTOGRAPH), HEPARINASE Routine 02/16/2024 9:57 AM EST WHOLE BLOOD PROFILE, VENOUS Routine 02/16/2024 9:57 AM EST BLOOD GAS, ARTERIAL Routine 02/16/2024 9 :57 AM EST TEG (THROMBOELASTOGRAPH) Routine 02/16/2024 9:57 AM EST PLT Routine 02/16/2024 9:57 AM EST HCT Routine 02/16/2024 9:57 AM EST FIBRINOGEN Routine 02/16/2024 9:57 AM EST ACT, POINT OF CARE [facility] 02/16/2024 9: 43 AM EST BLOOD GAS WITH CHEMISTRY, POINT OF CARE [facility] 02/16/2024 9:39 AM EST ACT, POINT OF CARE [facility] 02/16/2024 9: 30 AM EST ACT, POINT OF CARE [facility] 02/16/2024 9: 30 AM EST BLOOD GAS WITH CHEMISTRY, POINT OF CARE [facility] 02/16/2024 8:50 AM EST BLOOD GAS WITH CHEMISTRY, POINT OF CARE [facility] 02/16/2024 8:35 AM EST ACT, POINT OF CARE [facility] 02/16/2024 8: 25 AM EST BLOOD GAS WITH CHEMISTRY, POINT OF CARE [facility] 02/16/2024 8:24 AM EST Exclusion Left Atrial Appendage, Open, Performed at Time of Other [place] or Thora Proc, Any Method 02/16/2024 6:30 AM EST Chest pain 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) Nonrheumatic aortic valve stenosis 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,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 02/16/2024 6:30 AM EST Chest pain 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) Nonrheumatic aortic valve stenosis CABG, ARTERY-VEIN, TWO 6:30 AM EST Chest pain 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) Nonrheumatic aortic valve stenosis Replacement Aortic Valve, Bypass with Prosthetic Valve 02/16/2024 6:30 AM EST Chest pain 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) Nonrheumatic aortic valve stenosis CABG, ARTERIAL, SINGLE 6:30 AM EST Chest pain 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) Nonrheumatic aortic valve stenosis GLUCOSE METER, POINT OF CARE [facility] 02/16/2024 6:12 AM EST HC COMPATIBILITY ELECTRONIC CROSSMATCH Routine 02/16/2024 6:00 AM EST BASIC METABOLIC PANEL Routine 02/16/2024 3:38 AM EST PT INR Routine 02/16/2024 3:38 AM EST CBC STAT 02/16/2024 3:38 AM EST BLOOD GAS, ARTERIAL STAT 02/16/2024 1:41 AM EST APTT STAT 02/15/2024 11:47 PM EST CULTURE, URINE, QUANTITATIVE Routine 02/15/2024 4:52 PM EST URINALYSIS, REFLEX TO MICROSCOPIC Routine 02/15/2024 4:52 PM EST ABO/RH STAT 02/15/2024 4:36 PM EST TYPE AND SCREEN Routine 02/15/2024 4:36 PM EST APTT STAT 02/15/2024 4:36 PM EST VASC DUPLEX CAROTID BILAT Routine 02/15/2024 3:24 PM EST Encounter for other preprocedural examination Occlusion and stenosis of bilateral carotid arteries Coronary atherosclerosis due to lipid rich plaque VASC VEIN MAP BYPASS GRAFT PREOP EVAL Routine 02/15/2024 3:20 PM EST STAPH AUREUS PCR Routine 02/15/2024 2:13 PM EST XR CHEST 1 VIEW STAT 02/15/2024 2:12 PM EST Encounter for other preprocedural examination ACT, POINT OF CARE [facility] 02/15/2024 9: 32 AM EST Coronary Angiography w/left heart Cath 02/15/2024 8:50 AM EST Unstable angina (HCC) RETICULOCYTE PANEL Add-on 02/15/2024 5: 17 AM EST BASIC METABOLIC PANEL Routine 02/15/2024 5:17 AM EST IRON SCREEN, INCLUDING TIBC Add-on 02/15/2024 5:17 AM EST PT INR Routine 02/15/2024 5:17 AM EST CBC STAT 02/15/2024 5:17 AM EST TSH Add-on 02/15/2024 5:17 AM EST T4, TOTAL Add-on 02/15/2024 5:17 AM EST MAGNESIUM Add-on 02/15/2024 5:17 AM EST FERRITIN Add-on 02/15/2024 5:17 AM EST APTT STAT 02/15/2024 1:34 AM EST CARDIAC CATHETERIZATION REPORT Routine 02/15/2024 APTT STAT 02/14/2024 7:07 PM EST APTT STAT 02/14/2024 11:09 AM EST ECHO, COMPLETE (2D), TRANS-THORACIC Routine 02/14/2024 10:58 AM EST Unstable angina (HCC) HEMOGLOBIN A1C Routine 02/14/2024 3:35 AM EST BASIC METABOLIC PANEL Routine 02/14/2024 3:35 AM EST PT INR Routine 02/14/2024 3:35 AM EST APTT STAT 02/14/2024 3:35 AM EST CBC STAT 02/14/2024 3:35 AM EST LIPID PANEL WITHOUT DIRECT LDL Routine 02/14/2024 3:35 AM EST HEPARIN, UNFRACTIONATED STAT 02/13/2024 8:34 PM EST PT INR STAT 02/13/2024 8:34 PM EST APTT STAT 02/13/2024 8:34 PM EST CBC STAT 02/13/2024 8:34 PM EST documented in this encounter Results * XR CHEST 1 VIEW (02/21/2024 5:53 AM EST) Anatomical Region Laterality Modality Chest Computed Radiogr aphy 02/21/2024 7:53 AM EST Impressions 02/21/2024 7:51 AM EST IMPRESSION Slightly increased bibasilar atelectasis and small pleural effusions. Narrative 02/21/2024 7:51 AM EST EXAM XR CHEST 1 VIEW - 02/21/2024 5:53 am HISTORY follow up postop open heart COMPARISON XR CHEST 1 VIEW, ACC: [id number], dated 2024-02-20 05:31:36; XR CHEST 1 VIEW, ACC: [id number], dated 2024-02-19 05:40:52; XR CHEST 1 VIEW, ACC: [id number], dated 2024-02-18 05:40:32 TECHNIQUE Frontal view of the chest. FINDINGS Support apparatus: Prosthetic cardiac valve. Left atrial appendage clip. CABG markers. Sternotomy wires. Overlying wires. Bibasilar ground-glass opacities, likely combination of atelectasis and small pleural effusion are slightly increased. No sizable pneumothorax. Stable postoperative cardiomediastinal silhouette. Procedure Note Francisco J Kohli II, MD - 02/21/2024 EXAM XR CHEST 1 VIEW - 02/21/2024 5:53 am HISTORY follow up postop open heart COMPARISON XR CHEST 1 VIEW, ACC: [id number], dated 2024-02-20 05:31:36; XR CHEST 1 VIEW, ACC: [id number], dated 2024-02-19 05:40:52; XR CHEST 1 VIEW, ACC: [id number], dated 2024-02-18 05:40:32 TECHNIQUE Frontal view of the chest. FINDINGS Support apparatus: Prosthetic cardiac valve. Left atrial appendage clip.CABG markers. Sternotomy wires. Overlying wires. Bibasilar ground-glass opacities, likely combination of atelectasis andsmall pleural effusion are slightly increased. No sizable pneumothorax.Stable postoperative cardiomediastinal silhouette. IMPRESSION IMPRESSION Slightly increased bibasilar atelectasis and small pleural effusions. Dottie Bailey PA-C RADIOLOGY ([facility]) F inal Result * (ABNORMAL) DIFFERENTIAL, AUTOMATED (02/21/2024 4:39 AM EST) WBC 13.95(H) 4.00 - 10.80 K/uL 02/21/2024 5:01 AM EST [facility] Neutrophils % 69.4 40.0 - 75.0 % 02/21/2024 5:01 AM EST [facility] Lymphocytes % 11.9(L) 18.0 - 42.0 % 02/21/2024 5:01 AM EST [facility] Monocytes % 14.4(H) 1.0 - 11.0 % 02/21/2024 5:01 AM EST [facility] Eosinophils % 1.1 0.0 - 6.0 % 02/21/2024 5:01 AM EST [facility] Basophils % 0.3 0.0 - 2.0 % 02/21/2024 5:01 AM EST [facility] Immature Granulocytes % 2.9(H) 0.0 - 2.0 % 02/21/2024 5:01 AM EST [facility] Absolute Neutrophils 9.67(H) 1.80 - 7.70 K/uL 02/21/2024 5:01 AM EST [facility] Absolute Lymphocytes 1.66 1.00 - 4.80 K/ul 02/21/2024 5:01 AM EST [facility] Absolute Monocytes 2.01(H) 0.00 - 1.10 K/uL 02/21/2024 5:01 AM EST [facility] Absolute Eosinophils 0.16 0.00 - 0.70 K/uL 02/21/2024 5:01 AM EST [facility] Absolute Basophils 0.04 0.00 - 0.20 K/uL 02/21/2024 5:01 AM EST [facility] Absolute Immature Granulocytes 0.41(H) 0.00 - 0.20 K/uL 02/21/2024 5:01 AM EST [facility] Blood Venous blood specimen / Unknown Venipuncture / Unknown 02/21/2024 4:39 AM EST 02/21/2024 4:48 AM EST Dottie Bailey PA-C LAB BLOOD ORDERABLES Amber coleman Result [facility] [address] [place] [address] * (ABNORMAL) CBC (02/21/2024 4:39 AM EST) WBC 13.95(H) 4.00 - 10.80 K/uL 02/21/2024 5:01 AM EST [facility] RBC 3.22 4.50 - 5.25 M/uL 02/21/2024 5:01 AM EST [facility] HGB 8.7(L) 14.0 - 16.8 g/dL 02/21/2024 5:01 AM EST [facility] HCT 28.4(L) 40.0 - 48.4 % 02/21/2024 5:01 AM EST [facility] MCV 88.2 82.0 - 99.5 fL 02/21/2024 5:01 AM EST LABORATORY [facility] MCH 27.0 27.0 - 34.0 pg 02/21/2024 5:01 AM EST LABORATORY [facility] MCHC 30.6 32.0 - 36.0 g/dL 02/21/2024 5:01 AM EST LABORATORY [facility] RDW 16.1 11.5 - 15.5 % 02/21/2024 5:01 AM EST LABORATORY [facility] PLT 192 140 - 400 K/uL 02/21/2024 5:01 AM EST LABORATORY [facility] MPV 11.3 6.6 - 11.1 fL 02/21/2024 5:01 AM EST LABORATORY [facility] nRBCs 1(H) <=0 /100 WBCs 02/21/2024 5:01 AM EST LABORATORY [facility] Blood Venous blood specimen / Unknown Venipuncture / Unknown 02/21/2024 4:39 AM EST 02/21/2024 4:48 AM EST Dottie Bailey PA-C LAB BLOOD ORDERABLES Amber l Result LABORATORY [facility] [address] [place] [address] * (ABNORMAL) PT INR (02/21/2024 4:39 AM EST) [facility] Prothrombin Time 18.1(H) 11.6 - 15.2 seconds 02/21/2024 5:14 AM EST LABORATORY [facility] INR 1.5(H) 0.8 - 1.2 02/21/2024 5:14 AM EST LABORATORY [facility] Blood Venous blood specimen / Unknown Venipuncture / Unknown 02/21/2024 4:39 AM EST 02/21/2024 4:49 AM EST Narrative LABORATORY [facility] - 02/21/2024 5:14 AM EST Warfarin Therapy INR: 2.0-3.0 conventional anticoagulation INR: 2.5-3.5 high intensity anticoagulation Haylie CARUSO LAB BLOOD ORDERABLES Final Res ult LABORATORY [facility] [address] [place] [address] * MAGNESIUM (02/21/2024 4:39 AM EST) Magnesium 2.6 1.5 - 2.6 mg/dL 02/21/2024 5:19 AM EST LABORATORY [facility] Blood Venous blood specimen / Unknown Venipuncture / Unknown 02/21/2024 4:39 AM EST 02/21/2024 4:49 AM EST Dottie Bailey PA-C LAB BLOOD ORDERABLES Amber l Result LABORATORY [facility] [address] [place] [address] * (ABNORMAL) BASIC METABOLIC PANEL (02/21/2024 4:39 AM EST) BUN 33(H) 6 - 20 mg/dL 02/21/2024 5:19 AM EST LABORATORY [facility] CREATININE 0.8 0.6 - 1.2 mg/dL 02/21/2024 5:19 AM EST LAB[facility]ATORY [facility] EGFR >90 >=60 mL/min 02/21/2024 5:19 AM EST LAB[facility]ATORY [facility] Comment:eGFR is calculated b ased on the CKD-EPI 2020 equation. SODIUM 135 135 - 146 mmol/L 02/21/2024 5:19 AM EST LAB[facility]ATORY [facility] POTASSIUM 4.1 3.5 - 5.1 mmol/L 02/21/2024 5:19 AM EST [facility] CHLORIDE 98 98 - 107 mmol/L 02/21/2024 5:19 AM EST [facility] CO2 25 22 - 32 mmol/L 02/21/2024 5:19 AM EST [facility] ANION GAP 12 7 - 15 mmol/L 02/21/2024 5:19 AM EST [facility] GLUCOSE 106 70 - 120 mg/dL 02/21/2024 5:19 AM EST [facility]ORY [facility] CALCIUM 9.2 8.4 - 10.2 mg/dL 02/21/2024 5:19 AM EST LAB[facility]ATORY [facility] Blood Venous blood specimen / Unknown Venipuncture / Unknown 02/21/2024 4:39 AM EST 02/21/2024 4:49 AM EST us Dottie Bailey PA-C LAB BLOOD ORDERABLES Amber jared Result LABORATORY [facility] [address] [place] [address] * XR CHEST 1 VIEW (02/20/2024 5:55 AM EST) Anatomical Region Laterality Modality Chest Computed Radiogr aphy 02/20/2024 7:48 AM EST Impressions 02/20/2024 7:50 AM EST IMPRESSION Similar aeration of the lungs with predominantly left basilar atelectasis, progressed from prior chest radiograph. Retrocardiac infiltrate is not excluded. If there is continued clinical concern, a PA and lateral chest radiograph can be performed for higher sensitivity. I have personally reviewed this examination and agree with the resident/fellow physician's interpretation. Narrative 02/20/2024 7:50 AM EST EXAM XR CHEST 1 VIEW - 02/20/2024 5:55 am HISTORY follow up postop open heart TECHNIQUE AP portable upright chest radiograph was submitted. COMPARISON Chest x-ray 02/19/2024, 02/18/2024, 02/17/2024. FINDINGS FOREIGN BODIES, SUPPORT TUBES, LINES, DEVICES: Median sternotomy wires. Valve repair. Left atrial appendage clip. LUNGS, PLEURA: Similar aeration of the lungs with bibasilar atelectasis. The left basilar findings are more prominent compared to direct prior chest radiograph. No pneumothorax or sizable effusion. HEART, MEDIASTINUM: Stable cardiomediastinal silhouette. OTHER: None. Procedure Note Francisco J Kohli II, MD - 02/20/2024 EXAM XR CHEST 1 VIEW - 02/20/2024 5:55 am HISTORY follow up postop open heart TECHNIQUE AP portable upright chest radiograph was submitted. COMPARISON Chest x-ray 02/19/2024, 02/18/2024, 02/17/2024. FINDINGS FOREIGN BODIES, SUPPORT TUBES, LINES, DEVICES: Median sternotomy wires.Valve repair. Left atrial appendage clip. LUNGS, PLEURA: Similar aeration of the lungs with bibasilar atelectasis.The left basilar findings are more prominent compared to direct priorchest radiograph. No pneumothorax or sizable effusion. HEART, MEDIASTINUM: Stable cardiomediastinal silhouette. OTHER: None. IMPRESSION IMPRESSION Similar aeration of the lungs with predominantly left basilar atelectasis,progressed from prior chest radiograph. Retrocardiac infiltrate is notexcluded. If there is continued clinical concern, a PA and lateral chestradiograph can be performed for higher sensitivity. I have personally reviewed this examination and agree with the resident/fellow physician's interpretation. us Dottie Bailey PA-C RADIOLOGY ([facility]) F inal Result * (ABNORMAL) DIFFERENTIAL, AUTOMATED (02/20/2024 4:40 AM EST) WBC 15.61(H) 4.00 - 10.80 K/uL 02/20/2024 5:16 AM EST LABORATORY [facility] Neutrophils % 70.4 40.0 - 75.0 % 02/20/2024 5:16 AM EST LAB[facility]ORY [facility] Lymphocytes % 12.2(L) 18.0 - 42.0 % 02/20/2024 5:16 AM EST LAB[facility] Monocytes % 14.3(H) 1.0 - 11.0 % 02/20/2024 5:16 AM EST [facility] Eosinophils % 0.7 0.0 - 6.0 % 02/20/2024 5:16 AM EST LAB[facility] Basophils % 0.4 0.0 - 2.0 % 02/20/2024 5:16 AM EST [facility] Immature Granulocytes % 2.0 0.0 - 2.0 % 02/20/2024 5:16 AM EST LAB[facility] Absolute Neutrophils 10.97(H) 1.80 - 7.70 K/uL 02/20/2024 5:16 AM EST LAB[facility] Absolute Lymphocytes 1.91 1.00 - 4.80 K/ul 02/20/2024 5:16 AM EST LAB[facility] Absolute Monocytes 2.24(H) 0.00 - 1.10 K/uL 02/20/2024 5:16 AM EST LAB[facility] Absolute Eosinophils 0.11 0.00 - 0.70 K/uL 02/20/2024 5:16 AM EST LAB[facility] Absolute Basophils 0.06 0.00 - 0.20 K/uL 02/20/2024 5:16 AM EST [facility] Absolute Immature Granulocytes 0.32(H) 0.00 - 0.20 K/uL 02/20/2024 5:16 AM EST [facility] Blood Venous blood specimen / Unknown Venipuncture / Unknown 02/20/2024 4:40 AM EST 02/20/2024 4:59 AM EST us Dottie Bailey PA-C LAB BLOOD ORDERABLES Amber coleman Result LABORATORY [facility] [address] [place] [address] * (ABNORMAL) CBC (02/20/2024 4:40 AM EST) WBC 15.61(H) 4.00 - 10.80 K/uL 02/20/2024 5:16 AM EST LAB[facility]ATORY [facility] RBC 3.24 4.50 - 5.25 M/uL 02/20/2024 5:16 AM EST LAB[facility]ORY [facility] HGB 8.8(L) 14.0 - 16.8 g/dL 02/20/2024 5:16 AM EST [facility] HCT 28.6(L) 40.0 - 48.4 % 02/20/2024 5:16 AM EST LAB[facility]ORY [facility] MCV 88.3 82.0 - 99.5 fL 02/20/2024 5:16 AM EST LAB[facility] MCH 27.2 27.0 - 34.0 pg 02/20/2024 5:16 AM EST LAB[facility] MCHC 30.8 32.0 - 36.0 g/dL 02/20/2024 5:16 AM EST LAB[facility] RDW 16.4 11.5 - 15.5 % 02/20/2024 5:16 AM EST [facility] PLT 168 140 - 400 K/uL 02/20/2024 5:16 AM EST LAB[facility] MPV 12.2 6.6 - 11.1 fL 02/20/2024 5:16 AM EST LAB[facility]ORY [facility] nRBCs 1(H) <=0 /100 WBCs 02/20/2024 5:16 AM EST LAB[facility]ORY [facility] Blood Venous blood specimen / Unknown Venipuncture / Unknown 02/20/2024 4:40 AM EST 02/20/2024 4:59 AM EST Dottie Bailey PA-C LAB BLOOD ORDERABLES Amber l Result Performing Organization Address City/[facility]/ZIP Co de Phone Number LABORATORY [facility] [address] [place] [address] * (ABNORMAL) PT INR (02/20/2024 4:40 AM EST) Prothrombin Time 17.4(H) 11.6 - 15.2 seconds 02/20/2024 5:28 AM EST LAB[facility]ATORY [facility] INR 1.4(H) 0.8 - 1.2 02/20/2024 5:28 AM EST [facility] Blood Venous blood specimen / Unknown Venipuncture / Unknown 02/20/2024 4:40 AM EST 02/20/2024 4:59 AM EST Narrative LABORATORY [facility] - 02/20/2024 5:28 AM EST Warfarin Therapy INR: 2.0-3.0 conventional anticoagulation INR: 2.5-3.5 high intensity anticoagulation Haylie CARUSO LAB BLOOD ORDERABLES Final Res ult Performing Organization Address City/[facility] Co de Phone Number LABORATORY [facility] [address] [place] [address] * MAGNESIUM (02/20/2024 4:40 AM EST) Magnesium 2.6 1.5 - 2.6 mg/dL 02/20/2024 5:34 AM EST LAB[facility]ATORY [facility] Blood Venous blood specimen / Unknown Venipuncture / Unknown 02/20/2024 4:40 AM EST 02/20/2024 4:59 AM EST Dottie Bailey PA-C LAB BLOOD ORDERABLES Amber l Result LABORATORY [facility] [address] [place] [address] * (ABNORMAL) BASIC METABOLIC PANEL (02/20/2024 4:40 AM EST) BUN 33(H) 6 - 20 mg/dL 02/20/2024 5:34 AM EST [facility] CREATININE 1.0 0.6 - 1.2 mg/dL 02/20/2024 5:34 AM EST [facility] EGFR 85 >=60 mL/min 02/20/2024 5:34 AM EST LAB[facility]ORY [facility] Comment:eGFR is calculated b ased on the CKD-EPI 2020 equation. SODIUM 135 135 - 146 mmol/L 02/20/2024 5:34 AM EST [facility] POTASSIUM 4.3 3.5 - 5.1 mmol/L 02/20/2024 5:34 AM EST [facility] CHLORIDE 98 98 - 107 mmol/L 02/20/2024 5:34 AM EST [facility] CO2 25 22 - 32 mmol/L 02/20/2024 5:34 AM EST [facility] ANION GAP 12 7 - 15 mmol/L 02/20/2024 5:34 AM EST [facility] GLUCOSE 107 70 - 120 mg/dL 02/20/2024 5:34 AM EST [facility] CALCIUM 9.5 8.4 - 10.2 mg/dL 02/20/2024 5:34 AM EST [facility] Blood Venous blood specimen / Unknown Venipuncture / Unknown 02/20/2024 4:40 AM EST 02/20/2024 4:59 AM EST Dottie Bailey PA-C LAB BLOOD ORDERABLES Amber l Result LABORATORY [facility] [address] [place] [address] * XR ABDOMEN 1 VIEW (02/19/2024 6:02 AM EST) Anatomical Region Laterality Modality Abdomen, Pelvis Computed Radiogr aphy 02/19/2024 7:52 AM EST Impressions 02/19/2024 7:50 AM EST IMPRESSION Gastric distension by air is similar slightly improved from the previous examination but within the limits of normal variation. No dilated loops of bowel. Narrative 02/19/2024 7:50 AM EST EXAM XR ABDOMEN 1 VIEW - 02/19/2024 6:02 am HISTORY follow up gastric bubble TECHNIQUE Three views of the abdomen are submitted for interpretation. COMPARISON 02/18/2024. FINDINGS Gastric distension by air is similar slightly improved from the previous examination. Gaseous distended loops of small and large bowel are present, nonspecific. Multiple lines overlie the right side of the abdomen. Robert catheter present. Degenerative changes are noted throughout the bony structures. Procedure Note Garrison Montemayor MD - 02/19/2024 EXAM XR ABDOMEN 1 VIEW - 02/19/2024 6:02 am HISTORY follow up gastric bubble TECHNIQUE Three views of the abdomen are submitted for interpretation. COMPARISON 02/18/2024. FINDINGS Gastric distension by air is similar slightly improved from the previousexamination. Gaseous distended loops of small and large bowel arepresent, nonspecific. Multiple lines overlie the right side of theabdomen. Robert catheter present. Degenerative changes are notedthroughout the bony structures. IMPRESSION IMPRESSION Gastric distension by air is similar slightly improved from the previousexamination but within the limits of normal variation. No dilated loopsof bowel. Haylie CARUSO RADIOLOGY ([facility] GENERAL) Final Result * XR CHEST 1 VIEW (02/19/2024 6:01 AM EST) Anatomical Region Laterality Modality Chest Computed Radiogr aphy 02/19/2024 7:50 AM EST Impressions 02/19/2024 7:48 AM EST IMPRESSION Improving atelectatic changes. Narrative 02/19/2024 7:48 AM EST EXAM XR CHEST 1 VIEW - 02/19/2024 6:01 am HISTORY follow up postop open heart TECHNIQUE Single portable semi upright view the chest submitted for interpretation. COMPARISON 02/18/2024. FINDINGS Right internal jugular sheath is present. Interval removal of the [place]-Maicol catheter and mediastinal/pleural drainage tubes. Sternotomy wires, artificial aortic valve, and left atrial appendage closure device are unchanged. Cardiac size is enlarged, stable. Improving atelectatic changes. Persistent blunting of left costophrenic angle could represent atelectasis or tiny amount of pleural fluid. No pneumothorax appreciated. Remainder of examination unchanged. Procedure Note Garrison Montemayor MD - 02/19/2024 EXAM XR CHEST 1 VIEW - 02/19/2024 6:01 am HISTORY follow up postop open heart TECHNIQUE Single portable semi upright view the chest submitted forinterpretation. COMPARISON 02/18/2024. FINDINGS Right internal jugular sheath is present. Interval removal of theSwan-Maicol catheter and mediastinal/pleural drainage tubes. Sternotomywires, artificial aortic valve, and left atrial appendage closure deviceare unchanged. Cardiac size is enlarged, stable. Improving atelectatic changes.Persistent blunting of left costophrenic angle could represent atelectasisor tiny amount of pleural fluid. No pneumothorax appreciated. Remainderof examination unchanged. IMPRESSION IMPRESSION Improving atelectatic changes. us Dottie Bailey PA-C RADIOLOGY ([facility]) F inal Result * (ABNORMAL) DIFFERENTIAL, AUTOMATED (02/19/2024 5:00 AM EST) WBC 15.98(H) 4.00 - 10.80 K/uL 02/19/2024 5:34 AM EST LAB[facility]ATORY [facility] Neutrophils % 72.5 40.0 - 75.0 % 02/19/2024 5:34 AM EST [facility] Lymphocytes % 11.8(L) 18.0 - 42.0 % 02/19/2024 5:34 AM EST [facility] Monocytes % 13.3(H) 1.0 - 11.0 % 02/19/2024 5:34 AM EST [facility] Eosinophils % 0.4 0.0 - 6.0 % 02/19/2024 5:34 AM EST [facility] Basophils % 0.3 0.0 - 2.0 % 02/19/2024 5:34 AM EST [facility] Immature Granulocytes % 1.7 0.0 - 2.0 % 02/19/2024 5:34 AM EST [facility] Absolute Neutrophils 11.61(H) 1.80 - 7.70 K/uL 02/19/2024 5:34 AM EST [facility] Absolute Lymphocytes 1.88 1.00 - 4.80 K/ul 02/19/2024 5:34 AM EST [facility] Absolute Monocytes 2.12(H) 0.00 - 1.10 K/uL 02/19/2024 5:34 AM EST [facility] Absolute Eosinophils 0.06 0.00 - 0.70 K/uL 02/19/2024 5:34 AM EST [facility] Absolute Basophils 0.04 0.00 - 0.20 K/uL 02/19/2024 5:34 AM EST [facility] Absolute Immature Granulocytes 0.27(H) 0.00 - 0.20 K/uL 02/19/2024 5:34 AM EST [facility] Blood Venous blood specimen / Unknown Venipuncture / Unknown 02/19/2024 5:00 AM EST 02/19/2024 5:12 AM EST Dottie Bailey PA-C LAB BLOOD ORDERABLES Amber l Result Performing Organization Address City/State/[facility] Co de Phone Number LAB[facility]ATORY [facility] [address] [place] [address] * (ABNORMAL) CBC (02/19/2024 5:00 AM EST) WBC 15.98(H) 4.00 - 10.80 K/uL 02/19/2024 5:34 AM EST [facility] RBC 3.40 4.50 - 5.25 M/uL 02/19/2024 5:34 AM EST [facility] HGB 9.3(L) 14.0 - 16.8 g/dL 02/19/2024 5:34 AM EST [facility] HCT 29.8(L) 40.0 - 48.4 % 02/19/2024 5:34 AM EST [facility] MCV 87.6 82.0 - 99.5 fL 02/19/2024 5:34 AM EST [facility] MCH 27.4 27.0 - 34.0 pg 02/19/2024 5:34 AM EST [facility] MCHC 31.2 32.0 - 36.0 g/dL 02/19/2024 5:34 AM EST [facility] RDW 16.8 11.5 - 15.5 % 02/19/2024 5:34 AM EST [facility] PLT 130(L) 140 - 400 K/uL 02/19/2024 5:34 AM EST LABORATORY [facility] MPV 11.7 6.6 - 11.1 fL 02/19/2024 5:34 AM EST LABORATORY [facility] nRBCs 0 <=0 /100 WBCs 02/19/2024 5:34 AM EST LABORATORY [facility] Blood Venous blood specimen / Unknown Venipuncture / Unknown 02/19/2024 5:00 AM EST 02/19/2024 5:12 AM EST Dottie Bailey PA-C LAB BLOOD ORDERABLES Amber l Result Performing Organization Address City/[facility] Co de Phone Number LABORATORY [facility] [address] [place] [address] * (ABNORMAL) PT INR (02/19/2024 5:00 AM EST) Prothrombin Time 17.6(H) 11.6 - 15.2 seconds 02/19/2024 7:04 AM EST LABORATORY [facility] INR 1.4(H) 0.8 - 1.2 02/19/2024 7:04 AM EST LABORATORY [facility] Blood Venous blood specimen / Unknown Venipuncture / Unknown 02/19/2024 5:00 AM EST 02/19/2024 5:12 AM EST Narrative LABORATORY C - 02/19/2024 7:04 AM EST Warfarin Therapy INR: 2.0-3.0 conventional anticoagulation INR: 2.5-3.5 high intensity anticoagulation Haylie CARUSO LAB BLOOD ORDERABLES Final Res ult LABORATORY [facility] [address] [place] [address] * MAGNESIUM (02/19/2024 5:00 AM EST) Magnesium 2.5 1.5 - 2.6 mg/dL 02/19/2024 5:45 AM EST LABORATORY [facility] Blood Venous blood specimen / Unknown Venipuncture / Unknown 02/19/2024 5:00 AM EST 02/19/2024 5:12 AM EST Dottie Bailey PA-C LAB BLOOD ORDERABLES Amber l Result LABORATORY [facility] [address] [place] [address] * (ABNORMAL) BASIC METABOLIC PANEL (02/19/2024 5:00 AM EST) BUN 27(H) 6 - 20 mg/dL 02/19/2024 5:45 AM EST [facility] CREATININE 1.0 0.6 - 1.2 mg/dL 02/19/2024 5:45 AM EST [facility] EGFR 79 >=60 mL/min 02/19/2024 5:45 AM EST LAB[facility] Comment:eGFR is calculated b ased on the CKD-EPI 2020 equation. SODIUM 137 135 - 146 mmol/L 02/19/2024 5:45 AM EST [facility] POTASSIUM 4.7 3.5 - 5.1 mmol/L 02/19/2024 5:45 AM EST [facility] CHLORIDE 101 98 - 107 mmol/L 02/19/2024 5:45 AM EST [facility] CO2 25 22 - 32 mmol/L 02/19/2024 5:45 AM EST [facility] ANION GAP 11 7 - 15 mmol/L 02/19/2024 5:45 AM EST [facility] GLUCOSE 118 70 - 120 mg/dL 02/19/2024 5:45 AM EST [facility] CALCIUM 9.5 8.4 - 10.2 mg/dL 02/19/2024 5:45 AM EST [facility] Blood Venous blood specimen / Unknown Venipuncture / Unknown 02/19/2024 5:00 AM EST 02/19/2024 5:12 AM EST Dottie Bailey PA-C LAB BLOOD ORDERABLES Amber l Result LABORATORY [facility] [address] [place] [address] * XR ABDOMEN 1 VIEW (02/18/2024 6:35 AM EST) Anatomical Region Laterality Modality Abdomen, Pelvis Computed Radiogr aphy 02/18/2024 8:16 AM EST Impressions 02/18/2024 8:13 AM EST IMPRESSION 1. Keoh-wh-vxmyceco gaseous distention of the stomach. No evidence of bowel obstruction. 2. Postop chest with mildly increased left basilar atelectasis. Narrative 02/18/2024 8:13 AM EST EXAM XR CHEST 1 VIEW; XR ABDOMEN 1 VIEW - 02/18/2024 6:23 am; 02/18/2024 6:35 am HISTORY follow up postop open heart; gastric bubble on CXR COMPARISON Chest radiograph 02/17/2024. TECHNIQUE Upright AP view of the chest. AP view of the abdomen and pelvis. FINDINGS Chest: Lines/Tubes/Devices: Right IJ [place]-Maicol catheter tip in the right main pulmonary artery. Mediastinal drain and left chest tube in place. Prosthetic aortic valve noted. Lungs/Pleura: Patchy left basilar opacities favoring atelectasis. No sizable pleural effusions. No discernible pneumothorax. Heart/Mediastinum: Size and contours are stable. Bones/Soft Tissues: Degenerative osseous changes. No acute osseous abnormality. Abdomen: The bowel gas pattern is nonobstructive. Nees-et-fgezqvce gaseous distention of the stomach. Degenerative osseous changes. No acute osseous abnormality. No suspicious calcifications. Robert catheter noted. Procedure Note Medhat Mejia MD - 02/18/2024 EXAM XR CHEST 1 VIEW; XR ABDOMEN 1 VIEW - 02/18/2024 6:23 am; 02/18/2024 6:35am HISTORY follow up postop open heart; gastric bubble on CXR COMPARISON Chest radiograph 02/17/2024. TECHNIQUE Upright AP view of the chest. AP view of the abdomen and pelvis. FINDINGS Chest: Lines/Tubes/Devices: Right IJ [place]-Maicol catheter tip in the right mainpulmonary artery. Mediastinal drain and left chest tube in place.Prosthetic aortic valve noted. Lungs/Pleura: Patchy left basilar opacities favoring atelectasis. Nosizable pleural effusions. No discernible pneumothorax. Heart/Mediastinum: Size and contours are stable. Bones/Soft Tissues: Degenerative osseous changes. No acute osseousabnormality. Abdomen: The bowel gas pattern is nonobstructive. Nayt-ea-lymecyfz gaseousdistention of the stomach. Degenerative osseous changes. No acuteosseous abnormality. No suspicious calcifications. Robert catheternoted. IMPRESSION IMPRESSION 1. Zmhr-ee-rlhgujdp gaseous distention of the stomach. No evidence ofbowel obstruction. 2. Postop chest with mildly increased left basilar atelectasis. Haylie Venu CARUSO RADIOLOGY (RAD GENER[facility]) Final Result * XR CHEST 1 VIEW (02/18/2024 6:23 AM EST) Anatomical Region Laterality Modality Chest Computed Radiogr aphy 02/18/2024 8:16 AM EST Impressions 02/18/2024 8:13 AM EST IMPRESSION 1. Drtm-iu-ueugctfg gaseous distention of the stomach. No evidence of bowel obstruction. 2. Postop chest with mildly increased left basilar atelectasis. Narrative 02/18/2024 8:13 AM EST EXAM XR CHEST 1 VIEW; XR ABDOMEN 1 VIEW - 02/18/2024 6:23 am; 02/18/2024 6:35 am HISTORY follow up postop open heart; gastric bubble on CXR COMPARISON Chest radiograph 02/17/2024. TECHNIQUE Upright AP view of the chest. AP view of the abdomen and pelvis. FINDINGS Chest: Lines/Tubes/Devices: Right IJ [place]-Maicol catheter tip in the right main pulmonary artery. Mediastinal drain and left chest tube in place. Prosthetic aortic valve noted. Lungs/Pleura: Patchy left basilar opacities favoring atelectasis. No sizable pleural effusions. No discernible pneumothorax. Heart/Mediastinum: Size and contours are stable. Bones/Soft Tissues: Degenerative osseous changes. No acute osseous abnormality. Abdomen: The bowel gas pattern is nonobstructive. Iouk-cc-hbtoluht gaseous distention of the stomach. Degenerative osseous changes. No acute osseous abnormality. No suspicious calcifications. Robert catheter noted. Procedure Note Medhat Mejia MD - 02/18/2024 EXAM XR CHEST 1 VIEW; XR ABDOMEN 1 VIEW - 02/18/2024 6:23 am; 02/18/2024 6:35am HISTORY follow up postop open heart; gastric bubble on CXR COMPARISON Chest radiograph 02/17/2024. TECHNIQUE Upright AP view of the chest. AP view of the abdomen and pelvis. FINDINGS Chest: Lines/Tubes/Devices: Right IJ [place]-Maicol catheter tip in the right mainpulmonary artery. Mediastinal drain and left chest tube in place.Prosthetic aortic valve noted. Lungs/Pleura: Patchy left basilar opacities favoring atelectasis. Nosizable pleural effusions. No discernible pneumothorax. Heart/Mediastinum: Size and contours are stable. Bones/Soft Tissues: Degenerative osseous changes. No acute osseousabnormality. Abdomen: The bowel gas pattern is nonobstructive. Ynuy-bh-yccyrwaf gaseousdistention of the stomach. Degenerative osseous changes. No acuteosseous abnormality. No suspicious calcifications. Robert catheternoted. IMPRESSION IMPRESSION 1. Mbnd-xf-srnlmyeq gaseous distention of the stomach. No evidence ofbowel obstruction. 2. Postop chest with mildly increased left basilar atelectasis. Dottie Bailey PA-C RADIOLOGY ([facility] GENER[facility]) F inal Result * O2 SATURATION, VENOUS (02/18/2024 3:58 AM EST) O2, Saturation, Venous 54.5 40.0 - 85.0 % 02/18/2024 4:15 AM EST LABORATORY [facility] Blood Blood sample taken from central line / Unknown Central Line / Unknown 02/18/2024 3:58 AM EST 02/18/2024 4:10 AM EST Dottie Bailey PA-C LAB BLOOD ORDERABLES Amber l Result LABORATORY [facility] [address] [place] [address] * (ABNORMAL) DIFFERENTIAL, AUTOMATED (02/18/2024 3:58 AM EST) WBC 16.55(H) 4.00 - 10.80 K/uL 02/18/2024 4:28 AM EST LAB[facility]ORY [facility] Neutrophils % 74.1 40.0 - 75.0 % 02/18/2024 4:28 AM EST [facility] Lymphocytes % 9.2(L) 18.0 - 42.0 % 02/18/2024 4:28 AM EST [facility] Monocytes % 15.3(H) 1.0 - 11.0 % 02/18/2024 4:28 AM EST [facility] Eosinophils % 0.2 0.0 - 6.0 % 02/18/2024 4:28 AM EST [facility] Basophils % 0.2 0.0 - 2.0 % 02/18/2024 4:28 AM EST [facility] Immature Granulocytes % 1.0 0.0 - 2.0 % 02/18/2024 4:28 AM EST [facility] Absolute Neutrophils 12.28(H) 1.80 - 7.70 K/uL 02/18/2024 4:28 AM EST [facility] Absolute Lymphocytes 1.52 1.00 - 4.80 K/ul 02/18/2024 4:28 AM EST [facility] Absolute Monocytes 2.53(H) 0.00 - 1.10 K/uL 02/18/2024 4:28 AM EST [facility] Absolute Eosinophils 0.03 0.00 - 0.70 K/uL 02/18/2024 4:28 AM EST [facility] Absolute Basophils 0.03 0.00 - 0.20 K/uL 02/18/2024 4:28 AM EST [facility] Absolute Immature Granulocytes 0.16 0.00 - 0.20 K/uL 02/18/2024 4:28 AM EST [facility] Blood Arterial blood specimen / Unknown Venipuncture / Unknown 02/18/2024 3:58 AM EST 02/18/2024 4:10 AM EST Dottie Bailey PA-C LAB BLOOD ORDERABLES Amber coleman Result [facility] [address] [place] [address] * (ABNORMAL) CBC (02/18/2024 3:58 AM EST) WBC 16.55(H) 4.00 - 10.80 K/uL 02/18/2024 4:28 AM EST [facility] RBC 3.24 4.50 - 5.25 M/uL 02/18/2024 4:28 AM EST [facility] HGB 8.7(L) 14.0 - 16.8 g/dL 02/18/2024 4:28 AM EST [facility] HCT 28.2(L) 40.0 - 48.4 % 02/18/2024 4:28 AM EST [facility] MCV 87.0 82.0 - 99.5 fL 02/18/2024 4:28 AM EST [facility] MCH 26.9 27.0 - 34.0 pg 02/18/2024 4:28 AM EST [facility] MCHC 30.9 32.0 - 36.0 g/dL 02/18/2024 4:28 AM EST [facility] RDW 16.7 11.5 - 15.5 % 02/18/2024 4:28 AM EST [facility] PLT 100(L) 140 - 400 K/uL 02/18/2024 4:28 AM EST [facility] MPV 11.9 6.6 - 11.1 fL 02/18/2024 4:28 AM EST [facility] nRBCs 0 <=0 /100 WBCs 02/18/2024 4:28 AM EST [facility] Blood Arterial blood specimen / Unknown Venipuncture / Unknown 02/18/2024 3:58 AM EST 02/18/2024 4:10 AM EST Dottie Bailey PA-C LAB BLOOD ORDERABLES Amber l Result LABORATORY [facility] [address] [place] [address] * (ABNORMAL) PT INR (02/18/2024 3:58 AM EST) [facility] Prothrombin Time 18.7(H) 11.6 - 15.2 seconds 02/18/2024 4:35 AM EST [facility] INR 1.5(H) 0.8 - 1.2 02/18/2024 4:35 AM EST [facility] Blood Arterial blood specimen / Unknown Venipuncture / Unknown 02/18/2024 3:58 AM EST 02/18/2024 4:10 AM EST Narrative [facility]ORY [facility] - 02/18/2024 4:35 AM EST Warfarin Therapy INR: 2.0-3.0 conventional anticoagulation INR: 2.5-3.5 high intensity anticoagulation us Haylie CARUSO LAB BLOOD ORDERABLES Final Res ult Performing Organization Address City/[facility]/ZIP Co de Phone Number LABORATORY [facility] [address] [place] [address] * MAGNESIUM (02/18/2024 3:58 AM EST) Magnesium 2.5 1.5 - 2.6 mg/dL 02/18/2024 4:39 AM EST LABORATORY [facility] Blood Arterial blood specimen / Unknown Venipuncture / Unknown 02/18/2024 3:58 AM EST 02/18/2024 4:10 AM EST Dottie Bailey PA-C LAB BLOOD ORDERABLES Amber l Result Performing Organization Address [facility] Co de Phone Number LABORATORY [facility] [address] [place] [address] * (ABNORMAL) BASIC METABOLIC PANEL (02/18/2024 3:58 AM EST) BUN 24(H) 6 - 20 mg/dL 02/18/2024 4:39 AM EST [facility] CREATININE 1.1 0.6 - 1.2 mg/dL 02/18/2024 4:39 AM EST [facility] EGFR 72 >=60 mL/min 02/18/2024 4:39 AM EST [facility] Comment:eGFR is calculated b ased on the CKD-EPI 2020 equation. SODIUM 136 135 - 146 mmol/L 02/18/2024 4:39 AM EST [facility] POTASSIUM 4.6 3.5 - 5.1 mmol/L 02/18/2024 4:39 AM EST [facility] CHLORIDE 100 98 - 107 mmol/L 02/18/2024 4:39 AM EST [facility] CO2 25 22 - 32 mmol/L 02/18/2024 4:39 AM EST [facility] ANION GAP 11 7 - 15 mmol/L 02/18/2024 4:39 AM EST [facility] GLUCOSE 153(H) 70 - 120 mg/dL 02/18/2024 4:39 AM EST [facility] CALCIUM 9.2 8.4 - 10.2 mg/dL 02/18/2024 4:39 AM EST [facility] Blood Arterial blood specimen / Unknown Venipuncture / Unknown 02/18/2024 3:58 AM EST 02/18/2024 4:10 AM EST us Dottie Bailey PA-C LAB BLOOD ORDERABLES Amber coleman Result [facility] [address] [place] [address] * (ABNORMAL) WHOLE BLOOD PROFILE, ARTERIAL (02/17/2024 1:37 PM EST) Temperature 37.0 C 02/17/2024 1:51 PM EST [facility] pH, Arterial 7.388 7.350 - 7.450 units 02/17/2024 1:51 PM EST [facility] pCO2, Arterial 40.1 35.0 - 45.0 mmHg 02/17/2024 1:51 PM EST [facility] pO2, Arterial 79.2 75.0 - 100.0 mmHg 02/17/2024 1:51 PM EST LAB[facility] Base Excess, Arterial -0.7 -2.0 - 2.0 mmol/L 02/17/2024 1:51 PM EST [facility] HGB 9.6(L) 14.0 - 16.8 g/dL 02/17/2024 1:51 PM EST [facility] Oxyhemoglobin, Arterial 92.7(L) 94.0 - 99.0 % total Hgb 02/17/2024 1:51 PM EST [facility] Carboxyhemoglob in, Whole Blood 1.8(H) <=1.5 % total Hgb 02/17/2024 1:51 PM EST LAB[facility] Comment:Smokers: 0-9.0 % Methemoglobin, Whole Blood 1.7(H) <=1.5 % total Hgb 02/17/2024 1:51 PM EST [facility] Reduced Hemoglobin, Arterial 3.8 0.0 - 5.0 % total Hgb 02/17/2024 1:51 PM EST [facility] O2 Content, Arterial 12.6(L) 15.0 - 24.0 %vol 02/17/2024 1:51 PM EST [facility] Potassium 4.5 3.5 - 5.1 mmol/L 02/17/2024 1:51 PM EST [facility] Sodium 139 135 - 146 mmol/L 02/17/2024 1:51 PM EST [facility] Chloride 104 98 - 107 mmol/L 02/17/2024 1:51 PM EST [facility] Calcium, Ionized 1.16 1.13 - 1.32 mmol/L 02/17/2024 1:51 PM EST [facility] Anion Gap 11.3 7.0 - 15.0 mmol/L 02/17/2024 1:51 PM EST [facility] Glucose 148(H) 70 - 120 mg/dL 02/17/2024 1:51 PM EST [facility] FiO2 Not Provided % 02/17/2024 1:51 PM EST [facility] O2 Flow, Arterial 4L L/min 02/17/2024 1:51 PM EST [facility] Bicarbonate, Whole Blood 23.6 23.0 - 31.0 mmol/L 02/17/2024 1:51 PM EST [facility] Blood Arterial blood specimen / Unknown Arterial Line / Unknown 02/17/2024 1:37 PM EST 02/17/2024 1:43 PM EST Dottie Bailey PA-C LAB BLOOD ORDERABLES Amber l Result Performing Organization Address City/State/[facility] Co de Phone Number LABORATORY [facility] [address] [place] [address] * O2 SATURATION, VENOUS (02/17/2024 11:59 AM EST) O2, Saturation, Venous 41.0 40.0 - 85.0 % 02/17/2024 12:17 PM EST [facility] Blood Blood sample taken from central line / Unknown Central Line / Unknown 02/17/2024 11:59 AM EST 02/17/2024 12:12 PM EST Mani CARUSO LAB BLOOD ORDERABLES Final Resul t Performing Organization Address City/[facility]/ZIP Co de Phone Number [facility] [address] [place] [address] * (ABNORMAL) CBC (02/17/2024 11:59 AM EST) WBC 16.50(H) 4.00 - 10.80 K/uL 02/17/2024 12:32 PM EST [facility] RBC 3.38 4.50 - 5.25 M/uL 02/17/2024 12:32 PM EST [facility] HGB 9.1(L) 14.0 - 16.8 g/dL 02/17/2024 12:32 PM EST [facility] HCT 29.7(L) 40.0 - 48.4 % 02/17/2024 12:32 PM EST [facility] MCV 87.9 82.0 - 99.5 fL 02/17/2024 12:32 PM EST [facility] MCH 26.9 27.0 - 34.0 pg 02/17/2024 12:32 PM EST [facility] MCHC 30.6 32.0 - 36.0 g/dL 02/17/2024 12:32 PM EST [facility] RDW 16.6 11.5 - 15.5 % 02/17/2024 12:32 PM EST [facility] PLT 116(L) 140 - 400 K/uL 02/17/2024 12:32 PM EST [facility] MPV 11.3 6.6 - 11.1 fL 02/17/2024 12:32 PM EST [facility] nRBCs 0 <=0 /100 WBCs 02/17/2024 12:32 PM EST [facility] Blood Arterial blood specimen / Unknown Arterial Line / Unknown 02/17/2024 11:59 AM EST 02/17/2024 12:12 PM EST Mani CARUSO LAB BLOOD ORDERABLES Final Resul t [facility] [address] [place] [address] * TRANSFUSE PACKED RED BLOOD CELLS (02/17/2024 11:42 AM EST) Mani PUENTE BANK TRANFUSE ORDERABLES Fin al Result * TRANSFUSE PACKED RED BLOOD CELLS (02/17/2024 11:42 AM EST) Mani PUENTE BANK TRANFUSE ORDERABLES Fin al Result * PREPARE PACKED RED BLOOD CELLS (02/17/2024 8:10 AM EST) Unit Product Code [id number] 02/18/2024 12:10 PM EST [facility] BLOOD BANK Unit Number [id number] 02/18/2024 12:10 PM EST [facility] BLOOD BANK Unit ABO A 02/18/2024 12:10 PM EST [facility] BLOOD BANK Unit Rh POS 02/18/2024 12:10 PM EST [facility] BLOOD BANK Unit Crossmatch Compatible 02/17/2024 8:27 AM EST [facility] BLOOD BANK Unit Status PT 02/18/2024 12:10 PM EST [facility] BLOOD BANK Unit Blood Type APOS 02/18/2024 12:10 PM EST [facility] BLOOD BANK Unit Expiration [id number] 02/18/2024 12:10 PM EST [facility] BLOOD BANK Unit Barcode [id number] 02/18/2024 12:10 PM EST [facility] BLOOD BANK 02/17/2024 8:10 AM EST Mani PUENTE BANK PRODUCT ORDERABLES Edit ed Result - Final LABORATORY [facility] BLOOD BANK [address] [place] [address] * XR CHEST 1 VIEW (02/17/2024 5:40 AM EST) Anatomical Region Laterality Modality Chest Computed Radiogr aphy 02/17/2024 7:44 AM EST Impressions 02/17/2024 7:42 AM EST IMPRESSION Decreased lung volumes with slight increase in bibasilar atelectasis. Narrative 02/17/2024 7:42 AM EST EXAM XR CHEST 1 VIEW-02/17/2024 5:40 am HISTORY follow up postop open heart COMPARISON XR chest 02/16/2024. TECHNIQUE Single portable frontal view of the chest. FINDINGS Lines/Tubes: Extubation and removal of the gastric suction tube. Similar right IJ approach [place] catheter and lower thoracic drains. Lungs/Pleura: Decreased lung volumes with slight increase in bibasilar atelectasis. No discernible pleural effusion or pneumothorax. Heart/Mediastinum: Unchanged contours. Left atrial appendage clip. Aortic valve repair. Bones/Soft Tissues: Median sternotomy. Upper Abdomen: Visualized portions are unremarkable. Procedure Note Giovani Grimaldo MD - 02/17/2024 EXAM XR CHEST 1 VIEW-02/17/2024 5:40 am HISTORY follow up postop open heart COMPARISON XR chest 02/16/2024. TECHNIQUE Single portable frontal view of the chest. FINDINGS Lines/Tubes: Extubation and removal of the gastric suction tube. Similarright IJ approach [place] catheter and lower thoracic drains. Lungs/Pleura: Decreased lung volumes with slight increase in bibasilaratelectasis. No discernible pleural effusion or pneumothorax. Heart/Mediastinum: Unchanged contours. Left atrial appendage clip.Aortic valve repair. Bones/Soft Tissues: Median sternotomy. Upper Abdomen: Visualized portions are unremarkable. IMPRESSION IMPRESSION Decreased lung volumes with slight increase in bibasilar atelectasis. Dottie Bailey PA-C RADIOLOGY (RAD GENERAL) F inal Result * O2 SATURATION, VENOUS (02/17/2024 4:59 AM EST) O2, Saturation, Venous 42.6 40.0 - 85.0 % 02/17/2024 5:05 AM EST LABORATORY [facility] Blood Venous blood specimen / Unknown Venipuncture / Unknown 02/17/2024 4:59 AM EST 02/17/2024 5:02 AM EST Haylie CARUSO LAB BLOOD ORDERABLES Final Res ult LABORATORY [facility] [address] [place] [address] * GLUCOSE METER, POINT OF CARE (02/17/2024 4:03 AM EST) [facility] GLUCOSE - POCT 106 70 - 120 mg/dL 02/17/2024 4:07 AM EST [facility] Blood Whole blood specimen / Unknown 02/17/2024 4:03 AM EST 02/17/2024 4:07 AM EST Bill Kang MD LAB POINT O F CARE TEST DOCKED DEVICE UNSOLICITED RESULTS Final Result [facility] [address] [place] [address] * (ABNORMAL) WHOLE BLOOD PROFILE, ARTERIAL (02/17/2024 4:00 AM EST) [facility] Temperature 37.0 C 02/17/2024 4:06 AM EST [facility] pH, Arterial 7.398 7.350 - 7.450 units 02/17/2024 4:06 AM EST [facility] pCO2, Arterial 44.4 35.0 - 45.0 mmHg 02/17/2024 4:06 AM EST [facility] pO2, Arterial 143.0(H) 75.0 - 100.0 mmHg 02/17/2024 4:06 AM EST LAB[facility] Base Excess, Arterial 2.2(H) -2.0 - 2.0 mmol/L 02/17/2024 4:06 AM EST LAB[facility] HGB 8.2(L) 14.0 - 16.8 g/dL 02/17/2024 4:06 AM EST LAB[facility] Oxyhemoglobin, Arterial 97.3 94.0 - 99.0 % total Hgb 02/17/2024 4:06 AM EST LAB[facility]AT[facility] Carboxyhemoglob in, Whole Blood 1.5 <=1.5 % total Hgb 02/17/2024 4:06 AM EST LAB[facility] Comment:Smokers: 0-9.0 % Methemoglobin, Whole Blood 0.8 <=1.5 % total Hgb 02/17/2024 4:06 AM EST LAB[facility] Reduced Hemoglobin, Arterial 0.4 0.0 - 5.0 % total Hgb 02/17/2024 4:06 AM EST [facility] O2 Content, Arterial 11.6(L) 15.0 - 24.0 %vol 02/17/2024 4:06 AM EST LAB[facility] Potassium 4.5 3.5 - 5.1 mmol/L 02/17/2024 4:06 AM EST [facility] Sodium 142 135 - 146 mmol/L 02/17/2024 4:06 AM EST [facility] Chloride 105 98 - 107 mmol/L 02/17/2024 4:06 AM EST LAB[facility]AT[facility] Calcium, Ionized 1.20 1.13 - 1.32 mmol/L 02/17/2024 4:06 AM EST LAB[facility] Anion Gap 9.5 7.0 - 15.0 mmol/L 02/17/2024 4:06 AM EST [facility] Glucose 116 70 - 120 mg/dL 02/17/2024 4:06 AM EST LAB[facility]ATORY [facility] FiO2 Not Provided % 02/17/2024 4:06 AM EST LAB[facility] O2 Flow, Arterial 6 L/min 02/17/2024 4:06 AM EST LABORATORY [facility] Bicarbonate, Whole Blood 26.8 23.0 - 31.0 mmol/L 02/17/2024 4:06 AM EST LABORATORY [facility] Blood Arterial blood specimen / Unknown Arterial Puncture / Unknown 02/17/2024 4:00 AM EST 02/17/2024 4:03 AM EST Dottie Bailey PA-C LAB BLOOD ORDERABLES Amber l Result LABORATORY [facility] [address] [place] [address] * O2 SATURATION, VENOUS (02/17/2024 3:59 AM EST) O2, Saturation, Venous 42.2 40.0 - 85.0 % 02/17/2024 4:06 AM EST LABORATORY [facility] Blood Venous blood specimen / Unknown Venipuncture / Unknown 02/17/2024 3:59 AM EST 02/17/2024 4:03 AM EST Dottie Bailey PA-C LAB BLOOD ORDERABLES Amber l Result LABORATORY [facility] [address] [place] [address] * (ABNORMAL) DIFFERENTIAL, AUTOMATED (02/17/2024 3:59 AM EST) WBC 10.67 4.00 - 10.80 K/uL 02/17/2024 4:14 AM EST LAB[facility]ATORY [facility] Neutrophils % 77.0(H) 40.0 - 75.0 % 02/17/2024 4:14 AM EST LAB[facility]ATORY [facility] Lymphocytes % 8.6(L) 18.0 - 42.0 % 02/17/2024 4:14 AM EST LAB[facility]ATORY [facility] Monocytes % 13.7(H) 1.0 - 11.0 % 02/17/2024 4:14 AM EST LAB[facility]ATORY [facility] Eosinophils % 0.0 0.0 - 6.0 % 02/17/2024 4:14 AM EST LAB[facility]ORY [facility] Basophils % 0.2 0.0 - 2.0 % 02/17/2024 4:14 AM EST LAB[facility]ATORY [facility] Immature Granulocytes % 0.5 0.0 - 2.0 % 02/17/2024 4:14 AM EST LAB[facility]ORY [facility] Absolute Neutrophils 8.22(H) 1.80 - 7.70 K/uL 02/17/2024 4:14 AM EST LAB[facility]ATORY [facility] Absolute Lymphocytes 0.92(L) 1.00 - 4.80 K/ul 02/17/2024 4:14 AM EST LAB[facility]ATORY [facility] Absolute Monocytes 1.46(H) 0.00 - 1.10 K/uL 02/17/2024 4:14 AM EST LAB[facility]ATORY [facility] Absolute Eosinophils 0.00 0.00 - 0.70 K/uL 02/17/2024 4:14 AM EST LAB[facility]ATORY [facility] Absolute Basophils 0.02 0.00 - 0.20 K/uL 02/17/2024 4:14 AM EST LAB[facility]ATORY [facility] Absolute Immature Granulocytes 0.05 0.00 - 0.20 K/uL 02/17/2024 4:14 AM EST [facility] Blood Venous blood specimen / Unknown Venipuncture / Unknown 02/17/2024 3:59 AM EST 02/17/2024 4:03 AM EST Dottie Bailey PA-C LAB BLOOD ORDERABLES Amber l Result LAB[facility]ATORY [facility] [address] [place] [address] * (ABNORMAL) CBC (02/17/2024 3:59 AM EST) WBC 10.67 4.00 - 10.80 K/uL 02/17/2024 4:14 AM EST LAB[facility] RBC 2.83 4.50 - 5.25 M/uL 02/17/2024 4:14 AM EST LAB[facility] HGB 7.8(L) 14.0 - 16.8 g/dL 02/17/2024 4:14 AM EST LAB[facility] HCT 25.2(L) 40.0 - 48.4 % 02/17/2024 4:14 AM EST LAB[facility]ORY [facility] MCV 89.0 82.0 - 99.5 fL 02/17/2024 4:14 AM EST LAB[facility]ATORY [facility] MCH 27.6 27.0 - 34.0 pg 02/17/2024 4:14 AM EST LAB[facility] MCHC 31.0 32.0 - 36.0 g/dL 02/17/2024 4:14 AM EST LAB[facility] RDW 16.3 11.5 - 15.5 % 02/17/2024 4:14 AM EST LAB[facility]ORY [facility] PLT 105(L) 140 - 400 K/uL 02/17/2024 4:14 AM EST LAB[facility]ATORY [facility] MPV 11.0 6.6 - 11.1 fL 02/17/2024 4:14 AM EST LAB[facility]ATORY [facility] nRBCs 0 <=0 /100 WBCs 02/17/2024 4:14 AM EST [facility] Blood Venous blood specimen / Unknown Venipuncture / Unknown 02/17/2024 3:59 AM EST 02/17/2024 4:03 AM EST Dottie Bailey PA-C LAB BLOOD ORDERABLES Amber l Result LAB[facility]ATORY [facility] [address] [place] [address] * MAGNESIUM (02/17/2024 3:59 AM EST) Magnesium 2.6 1.5 - 2.6 mg/dL 02/17/2024 4:30 AM EST LAB[facility] Blood Venous blood specimen / Unknown Venipuncture / Unknown 02/17/2024 3:59 AM EST 02/17/2024 4:03 AM EST Dottie Bailey PA-C LAB BLOOD ORDERABLES Amber l Result LABORATORY [facility] [address] [place] [address] * BASIC METABOLIC PANEL (02/17/2024 3:59 AM EST) BUN 16 6 - 20 mg/dL 02/17/2024 4:30 AM EST LAB[facility] CREATININE 1.1 0.6 - 1.2 mg/dL 02/17/2024 4:30 AM EST LAB[facility]ATORY [facility] EGFR 74 >=60 mL/min 02/17/2024 4:30 AM EST LAB[facility]ATORY [facility] Comment:eGFR is calculated b ased on the CKD-EPI 2020 equation. SODIUM 141 135 - 146 mmol/L 02/17/2024 4:30 AM EST LAB[facility]ATORY [facility] POTASSIUM 4.6 3.5 - 5.1 mmol/L 02/17/2024 4:30 AM EST LAB[facility] CHLORIDE 103 98 - 107 mmol/L 02/17/2024 4:30 AM EST LAB[facility] CO2 26 22 - 32 mmol/L 02/17/2024 4:30 AM EST LAB[facility] ANION GAP 12 7 - 15 mmol/L 02/17/2024 4:30 AM EST [facility] GLUCOSE 114 70 - 120 mg/dL 02/17/2024 4:30 AM EST LAB[facility]ORY [facility] CALCIUM 9.1 8.4 - 10.2 mg/dL 02/17/2024 4:30 AM EST [facility] Blood Venous blood specimen / Unknown Venipuncture / Unknown 02/17/2024 3:59 AM EST 02/17/2024 4:03 AM EST Dottie Rafael Gorki PA-C LAB BLOOD ORDERABLES Amber l Result LABORATORY [facility] [address] [place] [address] * GLUCOSE METER, POINT OF CARE (02/17/2024 2:03 AM EST) GLUCOSE - POCT 106 70 - 120 mg/dL 02/17/2024 2:50 AM EST [facility] Blood Whole blood specimen / Unknown 02/17/2024 2:03 AM EST 02/17/2024 2:50 AM EST Bill Kang MD LAB POINT O F CARE TEST DOCKED DEVICE UNSOLICITED RESULTS Final Result Performing Organization Address [facility]/ZIP Co de Phone Number [facility] [address] [place] [address] * GLUCOSE METER, POINT OF CARE (02/17/2024 12:07 AM EST) GLUCOSE - POCT 106 70 - 120 mg/dL 02/17/2024 12:11 AM EST [email or web address] Blood Whole blood specimen / Unknown 02/17/2024 12:07 AM EST 02/17/2024 12:11 AM EST Bill Kang MD LAB POINT O F CARE TEST DOCKED DEVICE UNSOLICITED RESULTS Final Result Performing Organization Address City/[facility]/ZIP Co de Phone Number [facility] [address] [place] [address] * GLUCOSE METER, POINT OF CARE (02/16/2024 9:59 PM EST) GLUCOSE - POCT 110 70 - 120 mg/dL 02/16/2024 10:07 PM EST [facility] Blood Whole blood specimen / Unknown 02/16/2024 9:59 PM EST 02/16/2024 10:07 PM EST Bill Kang MD LAB POINT O F CARE TEST DOCKED DEVICE UNSOLICITED RESULTS Final Result [facility] [address] [place] [address] * (ABNORMAL) WHOLE BLOOD PROFILE, ARTERIAL (02/16/2024 8:00 PM EST) Temperature 37.0 C 02/16/2024 8:10 PM EST LAB[facility]ATORY [facility] pH, Arterial 7.371 7.350 - 7.450 units 02/16/2024 8:10 PM EST LAB[facility]ATORY [facility] pCO2, Arterial 44.5 35.0 - 45.0 mmHg 02/16/2024 8:10 PM EST LAB[facility] pO2, Arterial 156.0(H) 75.0 - 100.0 mmHg 02/16/2024 8:10 PM EST LAB[facility]ATORY [facility] Base Excess, Arterial 0.4 -2.0 - 2.0 mmol/L 02/16/2024 8:10 PM EST LAB[facility]ORY [facility] HGB 7.4(L) 14.0 - 16.8 g/dL 02/16/2024 8:10 PM EST LAB[facility] Oxyhemoglobin, Arterial 95.9 94.0 - 99.0 % total Hgb 02/16/2024 8:10 PM EST LAB[facility] Carboxyhemoglob in, Whole Blood 1.6(H) <=1.5 % total Hgb 02/16/2024 8:10 PM EST LAB[facility]ATORY [facility] Comment:Smokers: 0-9.0 % Methemoglobin, Whole Blood 1.9(H) <=1.5 % total Hgb 02/16/2024 8:10 PM EST LAB[facility] Reduced Hemoglobin, Arterial 0.6 0.0 - 5.0 % total Hgb 02/16/2024 8:10 PM EST LAB[facility] O2 Content, Arterial 10.3(L) 15.0 - 24.0 %vol 02/16/2024 8:10 PM EST [facility] Potassium 4.0 3.5 - 5.1 mmol/L 02/16/2024 8:10 PM EST [facility] Sodium 142 135 - 146 mmol/L 02/16/2024 8:10 PM EST LAB[facility] Chloride 104 98 - 107 mmol/L 02/16/2024 8:10 PM EST [facility] Calcium, Ionized 1.19 1.13 - 1.32 mmol/L 02/16/2024 8:10 PM EST [facility] Anion Gap 13.1 7.0 - 15.0 mmol/L 02/16/2024 8:10 PM EST LABORATORY C Glucose 145(H) 70 - 120 mg/dL 02/16/2024 8:10 PM EST [facility] FiO2 Not Provided % 02/16/2024 8:10 PM EST [facility] O2 Flow, Arterial Not Provided L/min 02/16/2024 8:10 PM EST LABORATORY C Bicarbonate, Whole Blood 25.2 23.0 - 31.0 mmol/L 02/16/2024 8:10 PM EST LABORATORY C Blood Arterial blood specimen / Unknown Arterial Puncture / Unknown 02/16/2024 8:00 PM EST 02/16/2024 8:05 PM EST us Dottie Bailey PA-C LAB BLOOD ORDERABLES Amber l Result LABORATORY [facility] [address] [place] [address] * (ABNORMAL) GLUCOSE METER, POINT OF CARE (02/16/2024 7:59 PM EST) GLUCOSE - POCT 141(H) 70 - 120 mg/dL 02/16/2024 8:29 PM EST [facility] Blood Whole blood specimen / Unknown 02/16/2024 7:59 PM EST 02/16/2024 8:29 PM EST Bill Kang MD LAB POINT O F CARE TEST DOCKED DEVICE UNSOLICITED RESULTS Final Result [facility] [address] [place] [address] * (ABNORMAL) MAGNESIUM (02/16/2024 7:55 PM EST) Magnesium 2.7(H) 1.5 - 2.6 mg/dL 02/16/2024 8:34 PM EST LABORATORY [facility] Blood Arterial blood specimen / Unknown Venipuncture / Unknown 02/16/2024 7:55 PM EST 02/16/2024 8:05 PM EST Dottie Bailey PA-C LAB BLOOD ORDERABLES Amber coleman Result LABORATORY [facility] [address] [place] [address] * (ABNORMAL) CBC (02/16/2024 7:55 PM EST) WBC 10.85(H) 4.00 - 10.80 K/uL 02/16/2024 8:21 PM EST [facility] RBC 2.67 4.50 - 5.25 M/uL 02/16/2024 8:21 PM EST LAB[facility] HGB 7.4(L) 14.0 - 16.8 g/dL 02/16/2024 8:21 PM EST LAB[facility] HCT 23.9(L) 40.0 - 48.4 % 02/16/2024 8:21 PM EST LAB[facility] MCV 89.5 82.0 - 99.5 fL 02/16/2024 8:21 PM EST LAB[facility] MCH 27.7 27.0 - 34.0 pg 02/16/2024 8:21 PM EST LAB[facility] MCHC 31.0 32.0 - 36.0 g/dL 02/16/2024 8:21 PM EST [facility] RDW 16.0 11.5 - 15.5 % 02/16/2024 8:21 PM EST LAB[facility]ORY [facility] PLT 103(L) 140 - 400 K/uL 02/16/2024 8:21 PM EST LAB[facility] MPV 10.5 6.6 - 11.1 fL 02/16/2024 8:21 PM EST LAB[facility] nRBCs 0 <=0 /100 WBCs 02/16/2024 8:21 PM EST [facility] Blood Arterial blood specimen / Unknown Venipuncture / Unknown 02/16/2024 7:55 PM EST 02/16/2024 8:05 PM EST Dottie Bailey PA-C LAB BLOOD ORDERABLES Amber l Result LABORATORY [facility] [address] [place] [address] * (ABNORMAL) BASIC METABOLIC PANEL (02/16/2024 7:55 PM EST) BUN 16 6 - 20 mg/dL 02/16/2024 8:34 PM EST [facility] CREATININE 1.1 0.6 - 1.2 mg/dL 02/16/2024 8:34 PM EST [facility] EGFR 75 >=60 mL/min 02/16/2024 8:34 PM EST [facility] Comment:eGFR is calculated b ased on the CKD-EPI 2020 equation. SODIUM 141 135 - 146 mmol/L 02/16/2024 8:34 PM EST [facility] POTASSIUM 4.0 3.5 - 5.1 mmol/L 02/16/2024 8:34 PM EST [facility] CHLORIDE 102 98 - 107 mmol/L 02/16/2024 8:34 PM EST [facility] CO2 24 22 - 32 mmol/L 02/16/2024 8:34 PM EST [facility] ANION GAP 15 7 - 15 mmol/L 02/16/2024 8:34 PM EST [facility] GLUCOSE 151(H) 70 - 120 mg/dL 02/16/2024 8:34 PM EST [facility] CALCIUM 9.1 8.4 - 10.2 mg/dL 02/16/2024 8:34 PM EST [facility] Blood Arterial blood specimen / Unknown Venipuncture / Unknown 02/16/2024 7:55 PM EST 02/16/2024 8:05 PM EST Dottie Bailey PA-C LAB BLOOD ORDERABLES Amber l Result LABORATORY [facility] [address] [place] [address] * (ABNORMAL) WHOLE BLOOD PROFILE, ARTERIAL (02/16/2024 6:31 PM EST) Temperature 37.0 C 02/16/2024 6:41 PM EST [facility] pH, Arterial 7.364 7.350 - 7.450 units 02/16/2024 6:41 PM EST [facility] pCO2, Arterial 44.1 35.0 - 45.0 mmHg 02/16/2024 6:41 PM EST [facility] pO2, Arterial 139.0(H) 75.0 - 100.0 mmHg 02/16/2024 6:41 PM EST [facility] Base Excess, Arterial -0.2 -2.0 - 2.0 mmol/L 02/16/2024 6:41 PM EST [facility] HGB 7.8(L) 14.0 - 16.8 g/dL 02/16/2024 6:41 PM EST [facility] Oxyhemoglobin, Arterial 97.2 94.0 - 99.0 % total Hgb 02/16/2024 6:41 PM EST [facility] Carboxyhemoglob in, Whole Blood 1.7(H) <=1.5 % total Hgb 02/16/2024 6:41 PM EST [facility] Comment:Smokers: 0-9.0 % Methemoglobin, Whole Blood 0.8 <=1.5 % total Hgb 02/16/2024 6:41 PM EST [facility] Reduced Hemoglobin, Arterial 0.3 0.0 - 5.0 % total Hgb 02/16/2024 6:41 PM EST [facility] O2 Content, Arterial 10.9(L) 15.0 - 24.0 %vol 02/16/2024 6:41 PM EST [facility] Potassium 3.9 3.5 - 5.1 mmol/L 02/16/2024 6:41 PM EST [facility] Sodium 141 135 - 146 mmol/L 02/16/2024 6:41 PM EST [facility] Chloride 104 98 - 107 mmol/L 02/16/2024 6:41 PM EST [facility] Calcium, Ionized 1.18 1.13 - 1.32 mmol/L 02/16/2024 6:41 PM EST [facility] Anion Gap 12.4 7.0 - 15.0 mmol/L 02/16/2024 6:41 PM EST [facility] Glucose 142(H) 70 - 120 mg/dL 02/16/2024 6:41 PM EST [facility] FiO2 40 % 02/16/2024 6:41 PM EST [facility] O2 Flow, Arterial Not Provided L/min 02/16/2024 6:41 PM EST [facility] Bicarbonate, Whole Blood 24.6 23.0 - 31.0 mmol/L 02/16/2024 6:41 PM EST [facility] Blood Arterial blood specimen / Unknown Arterial Puncture / Unknown 02/16/2024 6:31 PM EST 02/16/2024 6:38 PM EST Dottie Bailey PA-C LAB BLOOD ORDERABLES Amber l Result [facility] [address] [place] [address] * (ABNORMAL) GLUCOSE METER, POINT OF CARE (02/16/2024 5:58 PM EST) [facility] GLUCOSE - POCT 133(H) 70 - 120 mg/dL 02/16/2024 8:29 PM EST [facility] Blood Whole blood specimen / Unknown 02/16/2024 5:58 PM EST 02/16/2024 8:29 PM EST Bill Kang MD LAB POINT O F CARE TEST DOCKED DEVICE UNSOLICITED RESULTS Final Result Performing Organization Address City/[facility] Co de Phone Number [facility] [facility] [address] [place] [address] * (ABNORMAL) WHOLE BLOOD PROFILE, ARTERIAL (02/16/2024 5:08 PM EST) Pathologist [facility] Temperature 37.0 C 02/16/2024 5:16 PM EST [facility] pH, Arterial 7.347(L) 7.350 - 7.450 units 02/16/2024 5:16 PM EST [facility] pCO2, Arterial 45.2(H) 35.0 - 45.0 mmHg 02/16/2024 5:16 PM EST [facility] pO2, Arterial 184.0(H) 75.0 - 100.0 mmHg 02/16/2024 5:16 PM EST [facility] Base Excess, Arterial -0.9 -2.0 - 2.0 mmol/L 02/16/2024 5:16 PM EST [facility] HGB 8.0(L) 14.0 - 16.8 g/dL 02/16/2024 5:16 PM EST [facility] Oxyhemoglobin, Arterial 97.7 94.0 - 99.0 % total Hgb 02/16/2024 5:16 PM EST [facility] Carboxyhemoglob in, Whole Blood 1.4 <=1.5 % total Hgb 02/16/2024 5:16 PM EST [facility] Comment:Smokers: 0-9.0 % Methemoglobin, Whole Blood 0.7 <=1.5 % total Hgb 02/16/2024 5:16 PM EST [facility] Reduced Hemoglobin, Arterial 0.2 0.0 - 5.0 % total Hgb 02/16/2024 5:16 PM EST [facility] O2 Content, Arterial 11.4(L) 15.0 - 24.0 %vol 02/16/2024 5:16 PM EST [facility] Potassium 3.9 3.5 - 5.1 mmol/L 02/16/2024 5:16 PM EST [facility] Sodium 142 135 - 146 mmol/L 02/16/2024 5:16 PM EST [facility] Chloride 106 98 - 107 mmol/L 02/16/2024 5:16 PM EST [facility] Calcium, Ionized 1.20 1.13 - 1.32 mmol/L 02/16/2024 5:16 PM EST [facility] Anion Gap 12.3 7.0 - 15.0 mmol/L 02/16/2024 5:16 PM EST [facility] Glucose 130(H) 70 - 120 mg/dL 02/16/2024 5:16 PM EST [facility] FiO2 50 % 02/16/2024 5:16 PM EST [facility] O2 Flow, Arterial Not Provided L/min 02/16/2024 5:16 PM EST [facility] Bicarbonate, Whole Blood 24.1 23.0 - 31.0 mmol/L 02/16/2024 5:16 PM EST [facility] Blood Arterial blood specimen / Unknown Arterial Puncture / Unknown 02/16/2024 5:08 PM EST 02/16/2024 5:12 PM EST Dottie Bailey PA-C LAB BLOOD ORDERABLES Amber l Result Performing Organization Address City/[facility]/ZIP Co de Phone Number LABORATORY [facility] [address], [place] [id number] * (ABNORMAL) GLUCOSE METER, POINT OF CARE (02/16/2024 3:58 PM EST) [facility] GLUCOSE - POCT 129(H) 70 - 120 mg/dL 02/16/2024 8:29 PM EST [facility] Blood Whole blood specimen / Unknown 02/16/2024 3:58 PM EST 02/16/2024 8:29 PM EST Bill Kang MD LAB POINT O F CARE TEST DOCKED DEVICE UNSOLICITED RESULTS Final Result Performing Organization Address City/[facility] Co de Phone Number [facility] [address] [place] [address] * (ABNORMAL) WHOLE BLOOD PROFILE, ARTERIAL (02/16/2024 3:56 PM EST) [facility] Temperature 37.0 C 02/16/2024 4:18 PM EST [facility] pH, Arterial 7.466(H) 7.350 - 7.450 units 02/16/2024 4:18 PM EST [facility] pCO2, Arterial 35.5 35.0 - 45.0 mmHg 02/16/2024 4:18 PM EST [facility] pO2, Arterial 223.0(H) 75.0 - 100.0 mmHg 02/16/2024 4:18 PM EST [facility] Base Excess, Arterial 1.9 -2.0 - 2.0 mmol/L 02/16/2024 4:18 PM EST [facility] HGB 7.7(L) 14.0 - 16.8 g/dL 02/16/2024 4:18 PM EST [facility] Oxyhemoglobin, Arterial 97.7 94.0 - 99.0 % total Hgb 02/16/2024 4:18 PM EST [facility] Carboxyhemoglob in, Whole Blood 1.6(H) <=1.5 % total Hgb 02/16/2024 4:18 PM EST [facility] Comment:Smokers: 0-9.0 % Methemoglobin, Whole Blood 0.8 <=1.5 % total Hgb 02/16/2024 4:18 PM EST [facility] Reduced Hemoglobin, Arterial 0.0 0.0 - 5.0 % total Hgb 02/16/2024 4:18 PM EST [facility] O2 Content, Arterial 02/16/2024 4:18 PM EST [facility] Comment:Not calculated. Potassium 4.0 3.5 - 5.1 mmol/L 02/16/2024 4:18 PM EST [facility] Sodium 139 135 - 146 mmol/L 02/16/2024 4:18 PM EST [facility] Chloride 105 98 - 107 mmol/L 02/16/2024 4:18 PM EST [facility] Calcium, Ionized 1.32 1.13 - 1.32 mmol/L 02/16/2024 4:18 PM EST [facility] Anion Gap 9.6 7.0 - 15.0 mmol/L 02/16/2024 4:18 PM EST [facility] Glucose 134(H) 70 - 120 mg/dL 02/16/2024 4:18 PM EST [facility] FiO2 50 % 02/16/2024 4:18 PM EST [facility] O2 Flow, Arterial Not Provided L/min 02/16/2024 4:18 PM EST [facility] Bicarbonate, Whole Blood 25.2 23.0 - 31.0 mmol/L 02/16/2024 4:18 PM EST [facility] Blood Arterial blood specimen / Unknown Arterial Puncture / Unknown 02/16/2024 3:56 PM EST 02/16/2024 4:10 PM EST us Dottie Bailey PA-C LAB BLOOD ORDERABLES Amber l Result [facility] [address] [facility] [place] [address] * EKG (02/16/2024 3:02 PM EST) 02/16/2024 3:02 PM EST Narrative Procedure Note Keith Alexis MD - 02/16/2024 3:02 PM EST REASON FOR STUDY: POSTTOP CONCLUSIONS: Sinus rhythm with 1st degree AV block with Premature supraventricularcomplexes ST & T wave abnormality, consider inferior ischemia ST & T wave abnormality, consider anterolateral ischemia Prolonged QT interval or tu fusion, consider myocardial disease,electrolyte imbalance, or drug effects Abnormal ECG When compared with ECG of 16-Feb-2024 14:12, (unconfirmed) Sinus rhythm has replaced Electronic pacemaker detected Ventricular Rate: 65 Atrial Rate: 65 [place] Interval: 256 QRS Duration: 80 QT/QTc: 480/499 ms P-R-T [place]: 88 : 66 : 195 degrees us John Wells PA-C EKG Final Res ult [facility] * (ABNORMAL) WHOLE BLOOD PROFILE, ARTERIAL (02/16/2024 2:56 PM EST) Temperature 37.0 C 02/16/2024 3:11 PM EST [facility] pH, Arterial 7.470(H) 7.350 - 7.450 units 02/16/2024 3:11 PM EST [facility] pCO2, Arterial 34.7(L) 35.0 - 45.0 mmHg 02/16/2024 3:11 PM EST [facility] pO2, Arterial 195.0(H) 75.0 - 100.0 mmHg 02/16/2024 3:11 PM EST [facility] Base Excess, Arterial 1.8 -2.0 - 2.0 mmol/L 02/16/2024 3:11 PM EST [facility] HGB 8.6(L) 14.0 - 16.8 g/dL 02/16/2024 3:11 PM EST [facility] Oxyhemoglobin, Arterial 97.3 94.0 - 99.0 % total Hgb 02/16/2024 3:11 PM EST [facility] Carboxyhemoglob in, Whole Blood 1.9(H) <=1.5 % total Hgb 02/16/2024 3:11 PM EST [facility] Comment:Smokers: 0-9.0 % Methemoglobin, Whole Blood 0.9 <=1.5 % total Hgb 02/16/2024 3:11 PM EST [facility] Reduced Hemoglobin, Arterial 0.0 0.0 - 5.0 % total Hgb 02/16/2024 3:11 PM EST [facility] O2 Content, Arterial 02/16/2024 3:11 PM EST [facility] Comment:Not calculated. Potassium 4.2 3.5 - 5.1 mmol/L 02/16/2024 3:11 PM EST [facility] Sodium 139 135 - 146 mmol/L 02/16/2024 3:11 PM EST [facility] Chloride 103 98 - 107 mmol/L 02/16/2024 3:11 PM EST [facility] Calcium, Ionized 1.09(L) 1.13 - 1.32 mmol/L 02/16/2024 3:11 PM EST [facility] Anion Gap 11.1 7.0 - 15.0 mmol/L 02/16/2024 3:11 PM EST [facility] Glucose 154(H) 70 - 120 mg/dL 02/16/2024 3:11 PM EST [facility] FiO2 50 % 02/16/2024 3:11 PM EST [facility] O2 Flow, Arterial Not Provided L/min 02/16/2024 3:11 PM EST [facility] Bicarbonate, Whole Blood 24.9 23.0 - 31.0 mmol/L 02/16/2024 3:11 PM EST [facility] Blood Arterial blood specimen / Unknown Arterial Puncture / Unknown 02/16/2024 2:56 PM EST 02/16/2024 3:02 PM EST Dottie Bailey PA-C LAB BLOOD ORDERABLES Amber l Result Performing Organization Address City/State/[facility] Co de Phone Number LABORATORY [facility] [address] [place] [address] * XR CHEST 1 VIEW (02/16/2024 2:54 PM EST) Anatomical Region Laterality Modality Chest Computed Radiogr aphy 02/16/2024 5:07 PM EST Impressions 02/16/2024 5:04 PM EST IMPRESSION 1. Previously noted small right apical pneumothorax not visible on the current exam. 2. Other findings including lines and tubes as above. Narrative 02/16/2024 5:04 PM EST EXAM XR CHEST 1 VIEW - 02/16/2024 2:54 pm HISTORY basline initial xray after open heart surgery TECHNIQUE A single frontal radiograph of the chest was obtained. COMPARISON Radiograph from earlier today.. FINDINGS FOREIGN BODIES, SUPPORT TUBES, LINES, DEVICES: Endotracheal tube in satisfactory position. Gastric tube extends into the proximal stomach with side hole at the GE junction. The pulmonary artery catheter terminates in the right interlobar pulmonary artery. Mediastinal/pleural drains in place. Left atrial appendage clip and bioprosthetic aortic valve replacement. Faintly visible epicardial pacer wires. LUNGS, PLEURA: Mild streaky atelectasis at the left lung base. No pneumothorax or sizable effusion. HEART, MEDIASTINUM: Stable cardiomediastinal silhouette. OTHER: None. Procedure Note John Kitchen MD - 02/16/2024 EXAM XR CHEST 1 VIEW - 02/16/2024 2:54 pm HISTORY basline initial xray after open heart surgery TECHNIQUE A single frontal radiograph of the chest was obtained. COMPARISON Radiograph from earlier today.. FINDINGS FOREIGN BODIES, SUPPORT TUBES, LINES, DEVICES: Endotracheal tube insatisfactory position. Gastric tube extends into the proximal stomachwith side hole at the GE junction. The pulmonary artery catheterterminates in the right interlobar pulmonary artery. Mediastinal/pleuraldrains in place. Left atrial appendage clip and bioprosthetic aorticvalve replacement. Faintly visible epicardial pacer wires. LUNGS, PLEURA: Mild streaky atelectasis at the left lung base. Nopneumothorax or sizable effusion. HEART, MEDIASTINUM: Stable cardiomediastinal silhouette. OTHER: None. IMPRESSION IMPRESSION 1. Previously noted small right apical pneumothorax not visible on thecurrent exam. 2. Other findings including lines and tubes as above. us Dottie Bailey PA-C RADIOLOGY (RAD GENERAL) F inal Result * XR ABDOMEN 1 VIEW (02/16/2024 2:54 PM EST) Anatomical Region Laterality Modality Abdomen, Pelvis Computed Radiogr aphy 02/16/2024 5:04 PM EST Impressions 02/16/2024 5:01 PM EST IMPRESSION As above. Narrative 02/16/2024 5:01 PM EST EXAM XR ABDOMEN 1 VIEW - 02/16/2024 2:54 pm HISTORY Gastric Tube placement verification TECHNIQUE None. COMPARISON None. FINDINGS Gastric tube extends into the stomach with side hole at the GE junction. Procedure Note John Kitchen MD - 02/16/2024 EXAM XR ABDOMEN 1 VIEW - 02/16/2024 2:54 pm HISTORY Gastric Tube placement verification TECHNIQUE None. COMPARISON None. FINDINGS Gastric tube extends into the stomach with side hole at the GE junction. IMPRESSION IMPRESSION As above. Dottie Bailey PA-C RADIOLOGY (RAD GENERAL) F inal Result * TEG (THROMBOELASTOGRAPH), HEPARINASE (02/16/2024 2:24 PM EST) Reaction Time 4.7 2.5 - 8.3 minutes 02/16/2024 3:39 PM EST LABORATORY [facility] Kinetics Time 1.8 0.5 - 3.7 minutes 02/16/2024 3:39 PM EST LABORATORY [facility] Alpha Angle 66.4 46.8 - 78.4 degrees 02/16/2024 3:39 PM EST LABORATORY [facility] Maximum Amplitude 61.0 50.6 - 72.5 mm 02/16/2024 3:39 PM EST LABORATORY [facility] Comment:This is an appended report. These results have been appended to a previously preliminary verified report. Coagulation Index 1.0 -3.0 - 3.0 02/16/2024 3:39 PM EST LABORATORY [facility] Comment:This is an appended report. These results have been appended to a previously preliminary verified report. Percent Lysis 30 0.6 0.0 - 7.5 % 024 3:39 PM EST LABORATORY [facility] Comment:This is an appended report. These results have been appended to a previously preliminary verified report. Blood Venous blood specimen / Unknown Venipuncture / Unknown 02/16/2024 2:24 PM EST 02/16/2024 2:31 PM EST Dottie Bailey PA-C LAB BLOOD ORDERABLES Amber l Result LABORATORY [facility] [address] [place] [address] * TEG (THROMBOELASTOGRAPH) (02/16/2024 2:24 PM EST) Reaction Time 4.8 2.5 - 8.3 minutes 02/16/2024 3:38 PM EST LABORATORY [facility] Kinetics Time 2.1 0.5 - 3.7 minutes 02/16/2024 3:38 PM EST LABORATORY [facility] Alpha Angle 66.6 46.8 - 78.4 degrees 02/16/2024 3:38 PM EST LABORATORY [facility] Maximum Amplitude 61.0 50.6 - 72.5 mm 02/16/2024 3:38 PM EST LABORATORY [facility] Comment:This is an appended report. These results have been appended to a previously preliminary verified report. Coagulation Index 0.8 -3.0 - 3.0 02/16/2024 3:38 PM EST LABORATORY [facility] Comment:This is an appended report. These results have been appended to a previously preliminary verified report. Percent Lysis 30 0.0 0.0 - 7.5 % 024 3:38 PM EST LABORATORY [facility] Comment:This is an appended report. These results have been appended to a previously preliminary verified report. Blood Venous blood specimen / Unknown Venipuncture / Unknown 02/16/2024 2:24 PM EST 02/16/2024 2:31 PM EST [facility] LABORATORY [facility] - 02/16/2024 3:38 PM EST If R time > 20 minutes and no clot formed suggesting hypocoagulable state or interfering substance (anticoagulation). Consider resubmitting a new sample and/or checking PT/INR, aPTT, fibrinogen, and platelet count. us Dottie Bailey PA-C LAB BLOOD ORDERABLES Amber jared Result LABORATORY [facility] [address] [facility] [place] [address] * (ABNORMAL) WHOLE BLOOD PROFILE, ARTERIAL (02/16/2024 2:24 PM EST) Temperature 37.0 C 02/16/2024 2:35 PM EST LABORATORY [facility] pH, Arterial 7.451(H) 7.350 - 7.450 units 02/16/2024 2:35 PM EST [facility] pCO2, Arterial 37.9 35.0 - 45.0 mmHg 02/16/2024 2:35 PM EST [facility] pO2, Arterial 387.0(H) 75.0 - 100.0 mmHg 02/16/2024 2:35 PM EST LAB[facility]ORY [facility] Base Excess, Arterial 2.4(H) -2.0 - 2.0 mmol/L 02/16/2024 2:35 PM EST [facility] HGB 8.6(L) 14.0 - 16.8 g/dL 02/16/2024 2:35 PM EST [facility] Oxyhemoglobin, Arterial 97.5 94.0 - 99.0 % total Hgb 02/16/2024 2:35 PM EST [facility] Carboxyhemoglob in, Whole Blood 2.0(H) <=1.5 % total Hgb 02/16/2024 2:35 PM EST [facility] Comment:Smokers: 0-9.0 % Methemoglobin, Whole Blood 0.8 <=1.5 % total Hgb 02/16/2024 2:35 PM EST [facility] Reduced Hemoglobin, Arterial 0.0 0.0 - 5.0 % total Hgb 02/16/2024 2:35 PM EST [facility] O2 Content, Arterial 02/16/2024 2:35 PM EST [facility] Comment:Not calculated. Potassium 4.4 3.5 - 5.1 mmol/L 02/16/2024 2:35 PM EST [facility] Sodium 139 135 - 146 mmol/L 02/16/2024 2:35 PM EST [facility] Chloride 102 98 - 107 mmol/L 02/16/2024 2:35 PM EST [facility] Calcium, Ionized 1.10(L) 1.13 - 1.32 mmol/L 02/16/2024 2:35 PM EST [facility] Anion Gap 10.9 7.0 - 15.0 mmol/L 02/16/2024 2:35 PM EST [facility] Glucose 158(H) 70 - 120 mg/dL 02/16/2024 2:35 PM EST [facility] FiO2 100 % 02/16/2024 2:35 PM EST [facility] O2 Flow, Arterial Not Provided L/min 02/16/2024 2:35 PM EST LABORATORY [facility] Bicarbonate, Whole Blood 26.0 23.0 - 31.0 mmol/L 02/16/2024 2:35 PM EST LABORATORY [facility] Blood Arterial blood specimen / Unknown Arterial Puncture / Unknown 02/16/2024 2:24 PM EST 02/16/2024 2:30 PM EST Dottie Bailey PA-C LAB BLOOD ORDERABLES Amber l Result Performing Organization Address [facility] de Phone Number LABORATORY [facility] [address] [place] [address] * (ABNORMAL) PT INR (02/16/2024 2:24 PM EST) Prothrombin Time 17.8(H) 11.6 - 15.2 seconds 02/16/2024 3:17 PM EST LABORATORY [facility] INR 1.5(H) 0.8 - 1.2 02/16/2024 3:17 PM EST LABORATORY [facility] Blood Venous blood specimen / Unknown Venipuncture / Unknown 02/16/2024 2:24 PM EST 02/16/2024 2:31 PM EST Narrative LABORATORY [facility] - 02/16/2024 3:17 PM EST Warfarin Therapy INR: 2.0-3.0 conventional anticoagulation INR: 2.5-3.5 high intensity anticoagulation Result [facility] Dottie Bailye PA-C LAB BLOOD ORDERABLES Amber l Result Performing Organization Address City/[facility] Co de Phone Number LABORATORY [address] [address] * O2 SATURATION, VENOUS (02/16/2024 2:24 PM EST) O2, Saturation, Venous 72.9 40.0 - 85.0 % 02/16/2024 2:35 PM EST LABORATORY [facility] Blood Venous blood specimen / Unknown Venipuncture / Unknown 02/16/2024 2:24 PM EST 02/16/2024 2:30 PM EST Dottie ROCHA-C LAB BLOOD ORDERABLES Amber l Result LABORATORY [facility] [address] [place] [address] * (ABNORMAL) MAGNESIUM (02/16/2024 2:24 PM EST) Pathologist [facility] Magnesium 3.2(H) 1.5 - 2.6 mg/dL 02/16/2024 3:11 PM EST LABORATORY [facility] Blood Venous blood specimen / Unknown Venipuncture / Unknown 02/16/2024 2:24 PM EST 02/16/2024 2:30 PM EST Dottie Rafael ROCHA-C LAB BLOOD ORDERABLES Amber l Result Performing Organization Address [facility] Co de Phone Number LABORATORY [facility] [address] [place] [address] * HEPARIN, UNFRACTIONATED (02/16/2024 2:24 PM EST) [facility] Heparin, Unfractionated <0.10 <0.10 IU/mL 02/16/2024 3:23 PM EST LABORATORY [facility] Comment: Unfractionated therapeutic ranges for Anti Xa activity: For Cardiac/Neurologic treatment: 0.3 to 0.6 IU/mL. For treatment of DVT or Pulmonary Embolism: 0.3 to 0.7 IU/mL. Blood Venous blood specimen / Unknown Venipuncture / Unknown 02/16/2024 2:24 PM EST 02/16/2024 2:31 PM EST Dottie Rafael ROCHA-C LAB BLOOD ORDERABLES Amber l Result Performing Organization Address City/[facility]/ZIP Co de Phone Number LABORATORY [facility] [address] [place] [address] * FIBRINOGEN (02/16/2024 2:24 PM EST) Pathologist [facility] Fibrinogen 271 178 - 467 mg/dL 02/16/2024 3:17 PM EST LABORATORY [facility] Blood Venous blood specimen / Unknown Venipuncture / Unknown 02/16/2024 2:24 PM EST 02/16/2024 2:31 PM EST Dottie Bailey PA-C LAB BLOOD ORDERABLES Amber l Result Performing Organization Address [facility]/State/ZIP Co de Phone Number LABORATORY [facility] [address] [place], [place] [id number] * (ABNORMAL) CBC (02/16/2024 2:24 PM EST) WBC 11.89(H) 4.00 - 10.80 K/uL 02/16/2024 3:06 PM EST LAB[facility]ATORY [facility] RBC 3.02 4.50 - 5.25 M/uL 02/16/2024 3:06 PM EST [facility] HGB 8.3(L) 14.0 - 16.8 g/dL 02/16/2024 3:06 PM EST [facility] HCT 26.8(L) 40.0 - 48.4 % 02/16/2024 3:06 PM EST [facility] MCV 88.7 82.0 - 99.5 fL 02/16/2024 3:06 PM EST [facility] MCH 27.5 27.0 - 34.0 pg 02/16/2024 3:06 PM EST [facility] MCHC 31.0 32.0 - 36.0 g/dL 02/16/2024 3:06 PM EST [facility] RDW 15.9 11.5 - 15.5 % 02/16/2024 3:06 PM EST LAB[facility]ORY [facility] PLT 109(L) 140 - 400 K/uL 02/16/2024 3:06 PM EST [facility] MPV 10.5 6.6 - 11.1 fL 02/16/2024 3:06 PM EST LAB[facility]ORY [facility] nRBCs 0 <=0 /100 WBCs 02/16/2024 3:06 PM EST [facility] Blood Venous blood specimen / Unknown Venipuncture / Unknown 02/16/2024 2:24 PM EST 02/16/2024 2:31 PM EST Dottie Bailey PA-C LAB BLOOD ORDERABLES Amber l Result LABORATORY [facility] [address] [place] [address] * (ABNORMAL) BASIC METABOLIC PANEL (02/16/2024 2:24 PM EST) BUN 14 6 - 20 mg/dL 02/16/2024 3:11 PM EST LAB[facility]ATORY [facility] CREATININE 0.9 0.6 - 1.2 mg/dL 02/16/2024 3:11 PM EST LAB[facility]ATORY [facility] EGFR 89 >=60 mL/min 02/16/2024 3:11 PM EST LAB[facility]ATORY [facility] Comment:eGFR is calculated b ased on the CKD-EPI 2020 equation. SODIUM 141 135 - 146 mmol/L 02/16/2024 3:11 PM EST LAB[facility]ORY [facility] POTASSIUM 4.5 3.5 - 5.1 mmol/L 02/16/2024 3:11 PM EST [facility] CHLORIDE 101 98 - 107 mmol/L 02/16/2024 3:11 PM EST [facility]ORY [facility] CO2 25 22 - 32 mmol/L 02/16/2024 3:11 PM EST [facility]ORY [facility] ANION GAP 15 7 - 15 mmol/L 02/16/2024 3:11 PM EST [facility] GLUCOSE 156(H) 70 - 120 mg/dL 02/16/2024 3:11 PM EST [facility] CALCIUM 8.6 8.4 - 10.2 mg/dL 02/16/2024 3:11 PM EST [facility]ORY [facility] Blood Venous blood specimen / Unknown Venipuncture / Unknown 02/16/2024 2:24 PM EST 02/16/2024 2:30 PM EST us Dottie Bailey PA-C LAB BLOOD ORDERABLES Amber l Result LABORATORY [facility] [address] [place] [address] * (ABNORMAL) APTT (02/16/2024 2:24 PM EST) aPTT 78(H) 21 - 38 seconds 02/16/2024 3:23 PM EST LAB[facility]ATORY [facility] Blood Venous blood specimen / Unknown Venipuncture / Unknown 02/16/2024 2:24 PM EST 02/16/2024 2:31 PM EST Narrative LABORATORY [facility] - 02/16/2024 3:23 PM EST Anticoagulation may affect testing. Refer to [employer] Test Catalog for a list of effects. Dottie Bailey PA-C LAB BLOOD ORDERABLES Amber l Result Performing Organization Address City/[facility]/ZIP Co de Phone Number LABORATORY [address] [address] * (ABNORMAL) ANTITHROMBIN III ACTIVITY (02/16/2024 2:24 PM EST) [facility] Antithrombin III Activity 52(L) 80 - 120 % 02/16/2024 3:17 PM EST LABORATORY [facility] Blood Venous blood specimen / Unknown Venipuncture / Unknown 02/16/2024 2:24 PM EST 02/16/2024 2:31 PM EST Dottie ROCHA-C LAB BLOOD ORDERABLES Amber l Result Performing Organization Address City/[facility]/ZIP Co de Phone Number LABORATORY [address] [address] * (ABNORMAL) BLOOD GAS WITH CHEMISTRY, POINT OF CARE (02/16/2024 2:21 PM EST) Pathologist [facility] Draw Site Arterial Draw 02/16/2024 2:25 PM EST [facility] pH i-STAT 7.448 7.350 - 7.450 02/16/2024 2:25 PM EST [facility] pCO2 i-STAT 37.6 35.0 - 45.0 mm Hg 02/16/2024 2:25 PM EST [facility] pO2 i-STAT 459(H) 75 - 100 mm Hg 02/16/2024 2:25 PM EST [facility] Base Excess i-STAT 2 -2 - 2 mmol/L 02/16/2024 2:25 PM EST [facility] Bicarbonate i-STAT 26.0 23.0 - 31.0 mmol/L 02/16/2024 2:25 PM EST [facility] O2 Saturation i-STAT 100.0(H) 94.0 - 98.0 % 02/16/2024 2:25 PM EST [facility] GLUCOSE - POCT 150(H) 70 - 120 mg/dL 02/16/2024 2:25 PM EST [facility] POTASSIUM - POCT 4.2 3.5 - 5.1 mmol/L 02/16/2024 2:25 PM EST [facility] SODIUM - POCT 138 135 - 146 mmol/L 02/16/2024 2:25 PM EST [facility] Calcium, ionized 1.10(L) 1.13 - 1.32 mmol/L 02/16/2024 2:25 PM EST [facility] Hemoglobin i-STAT 9.2(L) 14.0 - 16.8 g/dL 02/16/2024 2:25 PM EST [facility] Hematocrit i-STAT 27(L) 40 - 48 % 02/16/2024 2:25 PM EST [facility] FiO2 100 % 02/16/2024 2:25 PM EST [facility] Arterial Draw 02/16/2024 2:2 1 PM EST 02/16/2024 2:24 PM EST Bill Kang MD LAB POINT O F CARE TEST DOCKED DEVICE UNSOLICITED RESULTS Final Result Performing Organization Address City/[facility] Co de Phone Number [facility] [address] [place] [address] * (ABNORMAL) GLUCOSE METER, POINT OF CARE (02/16/2024 2:16 PM EST) GLUCOSE - POCT 146(H) 70 - 120 mg/dL 02/16/2024 3:49 PM EST [facility] Blood Whole blood specimen / Unknown 02/16/2024 2:16 PM EST 02/16/2024 3:49 PM EST Bill Kang MD LAB POINT O F CARE TEST DOCKED DEVICE UNSOLICITED RESULTS Final Result Performing Organization Address City/State/[facility] Co de Phone Number [facility] [address] [facility] [place] [address] * EKG (02/16/2024 2:12 PM EST) 02/16/2024 2:12 PM EST Narrative Procedure Note Keith Alexis MD - 02/16/2024 2:12 PM EST REASON FOR STUDY: Immediately Post-op;Status post surgery CONCLUSIONS: Ventricular-paced rhythm Abnormal ECG When compared with ECG of 13-Feb-2024 19:40, (unconfirmed) 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 Atrial fibrillation Ventricular Rate: 80 Atrial Rate: 83 QRS Duration: 170 QT/QTc: 498/574 ms P-R-T [place]: 0 : -55 : 118 degrees us Dottie Bailey PA-C EKG Final Res ult Performing Organization Address [facility] [facility] Co de Phone Number [facility] CARDIOLOGY * TRANSFUSE PLASMA (02/16/2024 1:41 PM EST) us Edi Merchant MD BLD BANK TRANFUSE ORDERA BLES Final Result * CV ECHO, THANH INTRAOPERATIVE (02/16/2024 1:12 PM EST) LEFT VENTRICULAR EJECTION FRACTION 55 % [facility] 02/16/2024 11:4 9 AM EST us Haylie CARUSO ECHOCARDIOLOGY Final Result Performing Organization Address [facility] de Phone Number [facility] CARDIOLOGY * CV ECHO, THANH INTRAOPERATIVE (02/16/2024 1:12 PM EST) LEFT VENTRICULAR EJECTION FRACTION 55 % [facility] 02/16/2024 5:54 AM EST us Haylie CARUSO ECHOCARDIOLOGY Final Result Performing Organization Address [facility] Co de Phone Number [facility] CARDIOLOGY * PREPARE PLASMA (02/16/2024 1:05 PM EST) Unit Product Code [id number] 02/17/2024 2:10 PM EST LABORATORY [facility] BLOOD BANK Unit Number [id number] 02/17/2024 2:10 PM EST LABORATORY [facility] BLOOD BANK Unit ABO A 02/17/2024 2:10 PM EST LABORATORY [facility] BLOOD BANK Unit Rh POS 02/17/2024 2:10 PM EST LABORATORY [facility] BLOOD BANK Unit Status PT 02/17/2024 2:10 PM EST LAB[facility]ATORY [facility] BLOOD BANK Unit Blood Type APOS 02/17/2024 2:10 PM EST LABORATORY [facility] BLOOD BANK Unit Expiration [id number] 02/17/2024 2:10 PM EST LABORATORY [facility] BLOOD BANK Unit Barcode [id number] 02/17/2024 2:10 PM EST LABORATORY [facility] BLOOD BANK 02/16/2024 1:05 PM EST us Edi Merchant MD BLD BANK PRODUCT ORDERAB LES Edited Result - Final LABORATORY [facility] BLOOD BANK [address] [place] [address] * XR CHEST 1 VIEW (02/16/2024 1:04 PM EST) Anatomical Region Laterality Modality Chest Computed Radiogr aphy 02/16/2024 1:18 PM EST Impressions 02/16/2024 1:16 PM EST IMPRESSION Lines and tubes as above Small right pneumothorax Right upper lobe atelectasis/ground-glass opacity There are no needles Narrative 02/16/2024 1:16 PM EST EXAM XR CHEST 1 VIEW- 02/16/2024 1:04 pm HISTORY MISSING NEEDLE. EVAL FOR RSI. HEART SURGERY. COMPARISON XR CHEST 1 VIEW, ACC: [id number], dated 2024-02-15 13:52:30 TECHNIQUE Portable AP supine intraoperative film of the chest was obtained FINDINGS Catheters: Right internal jugular [place] catheter terminates in distal inter lobar pulmonary artery Tubes: Temperature probe. ET tube. Mediastinal and drainage catheter is noted Foreign bodies: Mediastinal suture. Aortic valve. Left atrial exclusion device. No needles identified Cardiac silhouette enlarged. Elongated aorta. Right upper lobe atelectasis/ground-glass opacity with small right pneumothorax. Left lung demonstrates subsegmental atelectasis left base. Procedure Note Elizabeth Sawyer MD - 02/16/2024 EXAM XR CHEST 1 VIEW- 02/16/2024 1:04 pm HISTORY MISSING NEEDLE. EVAL FOR RSI. HEART SURGERY. COMPARISON XR CHEST 1 VIEW, ACC: [id number], dated 2024-02-15 13:52:30 TECHNIQUE Portable AP supine intraoperative film of the chest was obtained FINDINGS Catheters: Right internal jugular [place] catheter terminates in distalinter lobar pulmonary artery Tubes: Temperature probe. ET tube. Mediastinal and drainage catheter isnoted Foreign bodies: Mediastinal suture. Aortic valve. Left atrial exclusiondevice. No needles identified Cardiac silhouette enlarged. Elongated aorta. Right upper lobeatelectasis/ground-glass opacity with small right pneumothorax. Left lungdemonstrates subsegmental atelectasis left base. IMPRESSION IMPRESSION Lines and tubes as above Small right pneumothorax Right upper lobe atelectasis/ground-glass opacity There are no needles Bill Kang MD RADIOLOGY ([facility][NOTE 3]) Final Result * TRANSFUSE PLATELETS (02/16/2024 1:04 PM EST) Edi Merchant MD [facility] BANK TRANFUSE ORDERA BLES Final Result * TRANSFUSE PLASMA (02/16/2024 12:47 PM EST) Edi Merchant MD [facility] BANK TRANFUSE ORDERA BLES Final Result * (ABNORMAL) BLOOD GAS WITH CHEMISTRY, POINT OF CARE (02/16/2024 12:25 PM EST) Draw Site Venous 02/16/2024 1:39 PM EST [facility] pH i-STAT 7.376 7.350 - 7.450 02/16/2024 1:39 PM EST [facility] pCO2 i-STAT 44.2 35.0 - 45.0 mm Hg 02/16/2024 1:39 PM EST [facility] pO2 i-STAT 36(LL) 75 - 100 mm Hg 02/16/2024 1:39 PM EST [facility] Base Excess i-STAT 0 -2 - 2 mmol/L 02/16/2024 1:39 PM EST [facility] Bicarbonate i-STAT 25.9 23.0 - 31.0 mmol/L 02/16/2024 1:39 PM EST [facility] O2 Saturation i-STAT 67.0(L) 94.0 - 98.0 % 02/16/2024 1:39 PM EST [facility] GLUCOSE - POCT 143(H) 70 - 120 mg/dL 02/16/2024 1:39 PM EST [facility] POTASSIUM - POCT 4.9 3.5 - 5.1 mmol/L 02/16/2024 1:39 PM EST [facility] SODIUM - POCT 137 135 - 146 mmol/L 02/16/2024 1:39 PM EST [facility] Calcium, ionized 1.04(L) 1.13 - 1.32 mmol/L 02/16/2024 1:39 PM EST [facility] Hemoglobin i-STAT 11.2(L) 14.0 - 16.8 g/dL 02/16/2024 1:39 PM EST [facility] Hematocrit i-STAT 33(L) 40 - 48 % 02/16/2024 1:39 PM EST [facility] Venous 02/16/2024 12:2 5 PM EST 02/16/2024 1:39 PM EST us Bill Kang MD LAB POINT O F CARE TEST DOCKED DEVICE UNSOLICITED RESULTS Final Result [facility] [address] [place] [address] * (ABNORMAL) BLOOD GAS WITH CHEMISTRY, POINT OF CARE (02/16/2024 12:24 PM EST) Draw Site Arterial Draw 02/16/2024 1:38 PM EST [facility] pH i-STAT 7.419 7.350 - 7.450 02/16/2024 1:38 PM EST [facility] pCO2 i-STAT 39.6 35.0 - 45.0 mm Hg 02/16/2024 1:38 PM EST [facility] pO2 i-STAT 76 75 - 100 mm Hg 02/16/2024 1:38 PM EST [facility] Base Excess i-STAT 1 -2 - 2 mmol/L 02/16/2024 1:38 PM EST [facility] Bicarbonate i-STAT 25.6 23.0 - 31.0 mmol/L 02/16/2024 1:38 PM EST [facility] O2 Saturation i-STAT 95.0 94.0 - 98.0 % 02/16/2024 1:38 PM EST [facility] GLUCOSE - POCT 153(H) 70 - 120 mg/dL 02/16/2024 1:38 PM EST [facility] POTASSIUM - POCT 4.9 3.5 - 5.1 mmol/L 02/16/2024 1:38 PM EST [facility] SODIUM - POCT 137 135 - 146 mmol/L 02/16/2024 1:38 PM EST [facility] Calcium, ionized 1.08(L) 1.13 - 1.32 mmol/L 02/16/2024 1:38 PM EST [facility] Hemoglobin i-STAT 11.6(L) 14.0 - 16.8 g/dL 02/16/2024 1:38 PM EST [facility] Hematocrit i-STAT 34(L) 40 - 48 % 02/16/2024 1:38 PM EST [facility] Arterial Draw 02/16/2024 12: 24 PM EST 02/16/2024 1:38 PM EST us Bill Kang MD LAB POINT O F CARE TEST DOCKED DEVICE UNSOLICITED RESULTS Final Result [facility] [address] [place] [address] * (ABNORMAL) WHOLE BLOOD PROFILE, ARTERIAL (02/16/2024 12:22 PM EST) Temperature 37.0 C 02/16/2024 12:37 PM EST [facility] pH, Arterial 7.417 7.350 - 7.450 units 02/16/2024 12:37 PM EST [facility] pCO2, Arterial 39.3 35.0 - 45.0 mmHg 02/16/2024 12:37 PM EST [facility] pO2, Arterial 142.0(H) 75.0 - 100.0 mmHg 02/16/2024 12:37 PM EST [facility] Base Excess, Arterial 0.9 -2.0 - 2.0 mmol/L 02/16/2024 12:37 PM EST [facility] HGB 10.8(L) 14.0 - 16.8 g/dL 02/16/2024 12:37 PM EST [facility] Oxyhemoglobin, Arterial 96.3 94.0 - 99.0 % total Hgb 02/16/2024 12:37 PM EST [facility] Carboxyhemoglob in, Whole Blood 1.6(H) <=1.5 % total Hgb 02/16/2024 12:37 PM EST [facility] Comment:Smokers: 0-9.0 % Methemoglobin, Whole Blood 0.8 <=1.5 % total Hgb 02/16/2024 12:37 PM EST [facility] Reduced Hemoglobin, Arterial 1.3 0.0 - 5.0 % total Hgb 02/16/2024 12:37 PM EST [facility] O2 Content, Arterial 14.8(L) 15.0 - 24.0 %vol 02/16/2024 12:37 PM EST [facility] Potassium 4.9 3.5 - 5.1 mmol/L 02/16/2024 12:37 PM EST [facility] Sodium 137 135 - 146 mmol/L 02/16/2024 12:37 PM EST [facility] Chloride 101 98 - 107 mmol/L 02/16/2024 12:37 PM EST [facility] Calcium, Ionized 1.06(L) 1.13 - 1.32 mmol/L 02/16/2024 12:37 PM EST [facility] Anion Gap 11.5 7.0 - 15.0 mmol/L 02/16/2024 12:37 PM EST [facility] Glucose 156(H) 70 - 120 mg/dL 02/16/2024 12:37 PM EST [facility] FiO2 Not Provided % 02/16/2024 12:37 PM EST [facility] O2 Flow, Arterial Not Provided L/min 02/16/2024 12:37 PM EST [facility] Bicarbonate, Whole Blood 24.8 23.0 - 31.0 mmol/L 02/16/2024 12:37 PM EST LABORATORY [facility] Blood Arterial blood specimen / Unknown 02/16/2024 12:22 PM EST 02/16/2024 12:33 PM EST us Edi Merchant MD LAB BLOOD ORDERABLES Fin al Result Performing Organization Address City/[facility]/ZIP Co de Phone Number [facility] [address] [place] [address] * ACT, POINT OF CARE (02/16/2024 12:22 PM EST) ACT 112 50 - 1,000 secs 02/16/2024 1:39 PM EST [facility] Blood 02/16/2024 12:2 2 PM EST 02/16/2024 1:39 PM EST Narrative [facility] - 02/16/2024 1:39 PM EST NORMAL (NON-HEPARINIZED) 74-137 SECONDS HEPARINIZED 200+ SECONDS CRITICAL GREATER THAN 1000 SECONDS us Bill Kang MD LAB POINT O F CARE TEST DOCKED DEVICE UNSOLICITED RESULTS Final Result Performing Organization Address [facility] de Phone Number [facility] [address] [place] [address] * TEG (THROMBOELASTOGRAPH), HEPARINASE (02/16/2024 12:21 PM EST) Reaction Time 4.5 2.5 - 8.3 minutes 02/16/2024 2:04 PM EST [facility] Kinetics Time 1.8 0.5 - 3.7 minutes 02/16/2024 2:04 PM EST [facility] Alpha Angle 64.4 46.8 - 78.4 degrees 02/16/2024 2:04 PM EST [facility] Maximum Amplitude 54.4 50.6 - 72.5 mm 02/16/2024 2:04 PM EST [facility] Comment:This is an appended report. These results have been appended to a previously preliminary verified report. Coagulation Index 0.1 -3.0 - 3.0 02/16/2024 2:04 PM EST LABORATORY [facility] Comment:This is an appended report. These results have been appended to a previously preliminary verified report. Percent Lysis 30 2.4 0.0 - 7.5 % 2:04 PM EST [facility]ATORY [facility] Comment:This is an appended report. These results have been appended to a previously preliminary verified report. Blood Arterial blood specimen / Unknown 02/16/2024 12:21 PM EST 02/16/2024 12:33 PM EST us Edi Merchant MD LAB BLOOD ORDERABLES Fin al Result LABORATORY [facility] [address] [place] [address] * TEG (THROMBOELASTOGRAPH) (02/16/2024 12:21 PM EST) Pathologist [facility] Reaction Time 4.7 2.5 - 8.3 minutes 02/16/2024 2:03 PM EST LABORATORY [facility] Kinetics Time 2.0 0.5 - 3.7 minutes 02/16/2024 2:03 PM EST [facility] Alpha Angle 63.0 46.8 - 78.4 degrees 02/16/2024 2:03 PM EST [facility]ORY [facility] Maximum Amplitude 57.1 50.6 - 72.5 mm 02/16/2024 2:03 PM EST [facility]ORY [facility] Comment:This is an appended report. These results have been appended to a previously preliminary verified report. Coagulation Index 0.2 -3.0 - 3.0 02/16/2024 2:03 PM EST [facility]ORY [facility] Comment:This is an appended report. These results have been appended to a previously preliminary verified report. Percent Lysis 30 0.5 0.0 - 7.5 % 2:03 PM EST [facility]ORY [facility] Comment:This is an appended report. These results have been appended to a previously preliminary verified report. Blood Arterial blood specimen / Unknown 02/16/2024 12:21 PM EST 02/16/2024 12:33 PM EST Narrative [facility] - 02/16/2024 2:03 PM EST If R time > 20 minutes and no clot formed suggesting hypocoagulable state or interfering substance (anticoagulation). Consider resubmitting a new sample and/or checking PT/INR, aPTT, fibrinogen, and platelet count. us Edi Merchant MD LAB BLOOD ORDERABLES Fin al Result LABORATORY [facility] [address] [place] [address] * (ABNORMAL) CBC (02/16/2024 12:21 PM EST) WBC 13.34(H) 4.00 - 10.80 K/uL 02/16/2024 1:33 PM EST LABORATORY [facility] RBC 3.84 4.50 - 5.25 M/uL 02/16/2024 1:33 PM EST LABORATORY [facility] HGB 10.4(L) 14.0 - 16.8 g/dL 02/16/2024 1:33 PM EST LABORATORY [facility] HCT 33.4(L) 40.0 - 48.4 % 02/16/2024 1:33 PM EST LAB[facility]ATORY [facility] MCV 87.0 82.0 - 99.5 fL 02/16/2024 1:33 PM EST LABORATORY [facility] MCH 27.1 27.0 - 34.0 pg 02/16/2024 1:33 PM EST LAB[facility]ATORY [facility] MCHC 31.1 32.0 - 36.0 g/dL 02/16/2024 1:33 PM EST LAB[facility]ATORY [facility] RDW 15.9 11.5 - 15.5 % 02/16/2024 1:33 PM EST LABORATORY [facility] PLT 82(L) 140 - 400 K/uL 02/16/2024 1:33 PM EST LAB[facility]ATORY [facility] MPV 10.8 6.6 - 11.1 fL 02/16/2024 1:33 PM EST LABORATORY GM nRBCs 0 <=0 /100 WBCs 02/16/2024 1:33 PM EST LABORATORY [facility] Blood Arterial blood specimen / Unknown 02/16/2024 12:21 PM EST 02/16/2024 12:33 PM EST Edi Merchant MD LAB BLOOD ORDERABLES Fin al Result LABORATORY [facility] [address] [place] [address] * (ABNORMAL) PT INR (02/16/2024 12:21 PM EST) Prothrombin Time 20.1(H) 11.6 - 15.2 seconds 02/16/2024 1:05 PM EST LABORATORY C INR 1.7(H) 0.8 - 1.2 02/16/2024 1:05 PM EST LAB[facility]ATORY [facility] Blood Arterial blood specimen / Unknown 02/16/2024 12:21 PM EST 02/16/2024 12:33 PM EST Narrative [facility] - 02/16/2024 1:05 PM EST Warfarin Therapy INR: 2.0-3.0 conventional anticoagulation INR: 2.5-3.5 high intensity anticoagulation Edi Merchant MD LAB BLOOD ORDERABLES Fin al Result Performing Organization Address City/[facility]/ZIP Co de Phone Number LABORATORY [facility] [address] [place] [address] * FIBRINOGEN (02/16/2024 12:21 PM EST) Fibrinogen 289 178 - 467 mg/dL 02/16/2024 1:05 PM EST LAB[facility]ATORY [facility] Blood Arterial blood specimen / Unknown 02/16/2024 12:21 PM EST 02/16/2024 12:33 PM EST Edi Merchant MD LAB BLOOD ORDERABLES Fin al Result Performing Organization Address City/[facility]/ZIP Co de Phone Number LABORATORY [facility] [address] [place] [address] * (ABNORMAL) APTT (02/16/2024 12:21 PM EST) aPTT 69(H) 21 - 38 seconds 02/16/2024 1:05 PM EST [facility] Blood Arterial blood specimen / Unknown 02/16/2024 12:21 PM EST 02/16/2024 12:33 PM EST Narrative LABORATORY [facility] - 02/16/2024 1:05 PM EST Anticoagulation may affect testing. Refer to [employer] Test Catalog for a list of effects. us Edi Merchant MD LAB BLOOD ORDERABLES Fin al Result LABORATORY [facility] [address] [place] [address] * ACT, POINT OF CARE (02/16/2024 11:42 AM EST) [facility] ACT 469 50 - 1,000 secs 02/16/2024 1:38 PM EST [employer] [facility] Blood 02/16/2024 11:4 2 AM EST 02/16/2024 1:38 PM EST Narrative [employer] [facility] - 02/16/2024 1:38 PM EST NORMAL (NON-HEPARINIZED) 74-137 SECONDS HEPARINIZED 200+ SECONDS CRITICAL GREATER THAN 1000 SECONDS us Bill Kang MD LAB POINT O F CARE TEST DOCKED DEVICE UNSOLICITED RESULTS Final Result Performing Organization Address City/[facility] Co de Phone Number [facility] [address] [place] [address] * (ABNORMAL) BLOOD GAS WITH CHEMISTRY, POINT OF CARE (02/16/2024 11:37 AM EST) [facility] Draw Site Arterial Draw 02/16/2024 1:39 PM EST [facility] pH i-STAT 7.394 7.350 - 7.450 02/16/2024 1:39 PM EST [facility] pCO2 i-STAT 46.2(H) 35.0 - 45.0 mm Hg 02/16/2024 1:39 PM EST [facility] pO2 i-STAT 191(H) 75 - 100 mm Hg 02/16/2024 1:39 PM EST [facility] Base Excess i-STAT 3(H) -2 - 2 mmol/L 02/16/2024 1:39 PM EST [facility] Bicarbonate i-STAT 28.2 23.0 - 31.0 mmol/L 02/16/2024 1:39 PM EST [facility] O2 Saturation i-STAT 100.0(H) 94.0 - 98.0 % 02/16/2024 1:39 PM EST [facility] GLUCOSE - POCT 151(H) 70 - 120 mg/dL 02/16/2024 1:39 PM EST [facility] POTASSIUM - POCT 6.2(H) 3.5 - 5.1 mmol/L 02/16/2024 1:39 PM EST [facility] SODIUM - POCT 134(L) 135 - 146 mmol/L 02/16/2024 1:39 PM EST [facility] Calcium, ionized 1.72(HH) 1.13 - 1.32 mmol/L 02/16/2024 1:39 PM EST [facility] Hemoglobin i-STAT 10.2(L) 14.0 - 16.8 g/dL 02/16/2024 1:39 PM EST [facility] Hematocrit i-STAT 30(L) 40 - 48 % 02/16/2024 1:39 PM EST [facility] Arterial Draw 02/16/2024 11: 37 AM EST 02/16/2024 1:39 PM EST Blil Kang MD LAB POINT O F CARE TEST DOCKED DEVICE UNSOLICITED RESULTS Final Result [facility] [address] [place] [address] * ACT, POINT OF CARE (02/16/2024 11:10 AM EST) ACT 556 50 - 1,000 secs 02/16/2024 1:39 PM EST [facility] Blood 02/16/2024 11:1 0 AM EST 02/16/2024 1:39 PM EST Narrative [facility] - 02/16/2024 1:39 PM EST NORMAL (NON-HEPARINIZED) 74-137 SECONDS HEPARINIZED 200+ SECONDS CRITICAL GREATER THAN 1000 SECONDS us Bill Kang MD LAB POINT O F CARE TEST DOCKED DEVICE UNSOLICITED RESULTS Final Result [facility] [address] [place] [address] * (ABNORMAL) BLOOD GAS WITH CHEMISTRY, POINT OF CARE (02/16/2024 11:05 AM EST) Draw Site Arterial Draw 02/16/2024 1:38 PM EST [facility] pH i-STAT 7.420 7.350 - 7.450 02/16/2024 1:38 PM EST [facility] pCO2 i-STAT 41.6 35.0 - 45.0 mm Hg 02/16/2024 1:38 PM EST [facility] pO2 i-STAT 223(H) 75 - 100 mm Hg 02/16/2024 1:38 PM EST [facility] Base Excess i-STAT 2 -2 - 2 mmol/L 02/16/2024 1:38 PM EST [facility] Bicarbonate i-STAT 27.0 23.0 - 31.0 mmol/L 02/16/2024 1:38 PM EST [facility] O2 Saturation i-STAT 100.0(H) 94.0 - 98.0 % 02/16/2024 1:38 PM EST [facility] GLUCOSE - POCT 163(H) 70 - 120 mg/dL 02/16/2024 1:38 PM EST [facility] POTASSIUM - POCT 6.0(H) 3.5 - 5.1 mmol/L 02/16/2024 1:38 PM EST [facility] SODIUM - POCT 136 135 - 146 mmol/L 02/16/2024 1:38 PM EST [facility] Calcium, ionized 0.99(L) 1.13 - 1.32 mmol/L 02/16/2024 1:38 PM EST [facility] Hemoglobin i-STAT 10.9(L) 14.0 - 16.8 g/dL 02/16/2024 1:38 PM EST [facility] Hematocrit i-STAT 32(L) 40 - 48 % 02/16/2024 1:38 PM EST [facility] Arterial Draw 02/16/2024 11: 05 AM EST 02/16/2024 1:38 PM EST us Bill Kang MD LAB POINT O F CARE TEST DOCKED DEVICE UNSOLICITED RESULTS Final Result [facility] [address] [place] [address] * PREPARE PLASMA (02/16/2024 10:55 AM EST) Unit Product Code [id number] 02/17/2024 2:10 PM EST LABORATORY [facility] BLOOD BANK Unit Number [id number] 02/17/2024 2:10 PM EST LABORATORY C BLOOD BANK Unit ABO A 02/17/2024 2:10 PM EST [facility] BLOOD BANK Unit Rh POS 02/17/2024 2:10 PM EST [facility] BLOOD BANK Unit Status PT 02/17/2024 2:10 PM EST [facility] BLOOD BANK Unit Blood Type APOS 02/17/2024 2:10 PM EST [facility] BLOOD BANK Unit Expiration [id number] 02/17/2024 2:10 PM EST [facility] BLOOD BANK Unit Barcode [id number] 02/17/2024 2:10 PM EST LABORATORY [facility] BLOOD BANK 02/16/2024 10:5 5 AM EST us Edi Merchant MD BLD BANK PRODUCT ORDERAB LES Edited Result - Final LABORATORY [facility] BLOOD BANK [address], [place] [id number] * ACT, POINT OF CARE (02/16/2024 10:40 AM EST) ACT 504 50 - 1,000 secs 02/16/2024 1:38 PM EST [facility] Blood 02/16/2024 10:4 0 AM EST 02/16/2024 1:38 PM EST [facility] - 02/16/2024 1:38 PM EST NORMAL (NON-HEPARINIZED) 74-137 SECONDS HEPARINIZED 200+ SECONDS CRITICAL GREATER THAN 1000 SECONDS us Bill Kang MD LAB POINT O F CARE TEST DOCKED DEVICE UNSOLICITED RESULTS Final Result Performing Organization Address City/[facility]/ZIP Co de Phone Number [facility] [address] [place] [address] * PREPARE PLATELETS (02/16/2024 10:35 AM EST) Unit Product Code [id number] 02/17/2024 2:10 PM EST LABORATORY [facility] BLOOD BANK Unit Number [id number] 02/17/2024 2:10 PM EST LABORATORY [facility] BLOOD BANK Unit ABO B 02/17/2024 2:10 PM EST LABORATORY [facility] BLOOD BANK Unit Rh POS 02/17/2024 2:10 PM EST LABORATORY [facility] BLOOD BANK Unit Status PT 02/17/2024 2:10 PM EST LABORATORY [facility] BLOOD BANK Unit Blood Type BPOS 02/17/2024 2:10 PM EST LABORATORY [facility] BLOOD BANK Unit Expiration [id number] 02/17/2024 2:10 PM EST LABORATORY [facility] BLOOD BANK Unit Barcode [id number] 02/17/2024 2:10 PM EST [facility]ATORY [facility] BLOOD BANK 02/16/2024 10:3 5 AM EST us Edi Merchant MD BLD BANK PRODUCT ORDERAB LES Edited Result - Final LABORATORY [facility] BLOOD BANK [address] [place] [address] * ACT, POINT OF CARE (02/16/2024 10:07 AM EST) ACT 521 50 - 1,000 secs 02/16/2024 1:38 PM EST [employer] [facility] Blood 02/16/2024 10:0 7 AM EST 02/16/2024 1:38 PM EST Narrative [facility] - 02/16/2024 1:38 PM EST NORMAL (NON-HEPARINIZED) 74-137 SECONDS HEPARINIZED 200+ SECONDS CRITICAL GREATER THAN 1000 SECONDS Bill Kang MD LAB POINT O F CARE TEST DOCKED DEVICE UNSOLICITED RESULTS Final Result Performing Organization Address [facility] Co de Phone Number [facility] [address] [place] [address] * TEG (THROMBOELASTOGRAPH), HEPARINASE (02/16/2024 9:57 AM EST) [facility] Reaction Time 4.8 2.5 - 8.3 minutes 02/16/2024 11:27 AM EST LABORATORY [facility] Kinetics Time 1.8 0.5 - 3.7 minutes 02/16/2024 11:27 AM EST LABORATORY [facility] Alpha Angle 65.2 46.8 - 78.4 degrees 02/16/2024 11:27 AM EST LAB[facility]ATORY [facility] Maximum Amplitude 59.8 50.6 - 72.5 mm 02/16/2024 11:27 AM EST LAB[facility]ATORY [facility] Comment:This is an appended report. These results have been appended to a previously preliminary verified report. Coagulation Index 0.7 -3.0 - 3.0 02/16/2024 11:27 AM EST [facility]ATORY [facility] Comment:This is an appended report. These results have been appended to a previously preliminary verified report. Percent Lysis 30 2.7 0.0 - 7.5 % 024 11:27 AM EST LAB[facility]ATORY [facility] Comment:This is an appended report. These results have been appended to a previously preliminary verified report. Blood Venous blood specimen / Unknown Venipuncture / Unknown 02/16/2024 9:57 AM EST 02/16/2024 10:04 AM EST Bill Kang MD LAB BLOOD ORDERABLE S Final Result Performing Organization Address City/[facility]/ZIP Co de Phone Number LABORATORY [facility] [address] [place] [address] * (ABNORMAL) TEG (THROMBOELASTOGRAPH) (02/16/2024 9:57 AM EST) Reaction Time >20.0(H) 2.5 - 8.3 minutes 02/16/2024 10:49 AM EST LAB[facility]ATORY [facility] Blood Venous blood specimen / Unknown Venipuncture / Unknown 02/16/2024 9:57 AM EST 02/16/2024 10:04 AM EST Narrative LABORATORY [facility] - 02/16/2024 10:49 AM EST If R time > 20 minutes and no clot formed suggesting hypocoagulable state or interfering substance (anticoagulation). Consider resubmitting a new sample and/or checking PT/INR, aPTT, fibrinogen, and platelet count. If R time > 20 minutes and no clot formed suggesting hypocoagulable state or interfering substance (anticoagulation). Consider resubmitting a new sample and/or checking PT/INR, aPTT, fibrinogen, and platelet count. us Bill Kang MD LAB BLOOD ORDERABLE S Final Result Performing Organization Address City/State/[facility] Co de Phone Number LABORATORY [facility] [address] [place] [address] * (ABNORMAL) WHOLE BLOOD PROFILE, VENOUS (02/16/2024 9:57 AM EST) Pathologist [facility] Temperature 37.0 C 02/16/2024 10:08 AM EST LABORATORY [facility] pH, Venous 7.372 7.320 - 7.430 units 02/16/2024 10:08 AM EST [facility] pCO2, Venous 46.3 40.0 - 60.0 mmHg 02/16/2024 10:08 AM EST LABORATORY C pO2, Venous 43.1 25.0 - 50.0 mmHg 02/16/2024 10:08 AM EST LABORATORY [facility] Base Excess, Venous 1.3 -2.0 - 2.0 mmol/L 02/16/2024 10:08 AM EST LABORATORY [facility] HGB 8.8(L) 14.0 - 16.8 g/dL 02/16/2024 10:08 AM EST LABORATORY [facility] Oxyhemoglobin, Venous 74.5 40.0 - 85.0 % total Hgb 02/16/2024 10:08 AM EST LABORATORY [facility] Carboxyhemoglobi n, Whole Blood 1.4 <=1.5 % total Hgb 02/16/2024 10:08 AM EST [facility] Comment:Smokers: 0-9.0 % Methemoglobin, Whole Blood 1.0 <=1.5 % total Hgb 02/16/2024 10:08 AM EST [facility] Reduced Hemoglobin, Venous 23.1 % total Hgb 02/16/2024 10:08 AM EST [facility] O2 Content, Venous 9.2 7.0 - 18.0 %vol 02/16/2024 10:08 AM EST [facility] Potassium 5.1 3.5 - 5.1 mmol/L 02/16/2024 10:08 AM EST [facility] Sodium 137 135 - 146 mmol/L 02/16/2024 10:08 AM EST LABORATORY C Chloride 104 98 - 107 mmol/L 02/16/2024 10:08 AM EST LABORATORY [facility] Calcium, Ionized 1.03(L) 1.13 - 1.32 mmol/L 02/16/2024 10:08 AM EST LABORATORY [facility] Anion Gap 7.5 7.0 - 15.0 mmol/L 02/16/2024 10:08 AM EST LABORATORY [facility] Glucose 116 70 - 120 mg/dL 02/16/2024 10:08 AM EST LABORATORY [facility] Bicarbonate, Whole Blood 26.2 23.0 - 31.0 mmol/L 02/16/2024 10:08 AM EST LABORATORY [facility] Blood Venous blood specimen / Unknown Venipuncture / Unknown 02/16/2024 9:57 AM EST 02/16/2024 10:04 AM EST us Bill Kang MD LAB BLOOD ORDERABLE S Final Result LABORATORY [facility] [address] [place] [address] * (ABNORMAL) BLOOD GAS, ARTERIAL (02/16/2024 9:57 AM EST) Temperature 37.0 C 02/16/2024 10:08 AM EST [facility] pH, Arterial 7.408 7.350 - 7.450 units 02/16/2024 10:08 AM EST [facility] pCO2, Arterial 39.3 35.0 - 45.0 mmHg 02/16/2024 10:08 AM EST [facility] pO2, Arterial 231.0(H) 75.0 - 100.0 mmHg 02/16/2024 10:08 AM EST [facility] Base Excess, Arterial 0.2 -2.0 - 2.0 mmol/L 02/16/2024 10:08 AM EST [facility] HGB 8.8(L) 14.0 - 16.8 g/dL 02/16/2024 10:08 AM EST [facility] Oxyhemoglobin, Arterial 97.9 94.0 - 99.0 % total Hgb 02/16/2024 10:08 AM EST [facility] Carboxyhemoglob in, Whole Blood 1.6(H) <=1.5 % total Hgb 02/16/2024 10:08 AM EST [facility]ORY [facility] Comment:Smokers: 0-9.0 % Methemoglobin, Whole Blood 0.6 <=1.5 % total Hgb 02/16/2024 10:08 AM EST [facility] Reduced Hemoglobin, Arterial 0.0 0.0 - 5.0 % total Hgb 02/16/2024 10:08 AM EST [facility] O2 Content, Arterial 02/16/2024 10:08 AM EST [facility] Comment: Not calculated. FiO2 Not Provided % 02/16/2024 10:08 AM EST [facility] O2 Flow, Arterial Not Provided L/min 02/16/2024 10:08 AM EST [facility] Bicarbonate, Whole Blood 24.3 23.0 - 31.0 mmol/L 02/16/2024 10:08 AM EST [facility] Blood Arterial blood specimen / Unknown Arterial Puncture / Unknown 02/16/2024 9:57 AM EST 02/16/2024 10:04 AM EST us Bill Kang MD LAB BLOOD ORDERABLE S Final Result LABORATORY [facility] [address] [place] [address] * (ABNORMAL) PLT (02/16/2024 9:57 AM EST) PLT 128(L) 140 - 400 K/uL 02/16/2024 10:15 AM EST LABORATORY C Blood Venous blood specimen / Unknown Venipuncture / Unknown 02/16/2024 9:57 AM EST 02/16/2024 10:04 AM EST Bill Kang MD LAB BLOOD ORDERABLE S Final Result Performing Organization Address City/[facility]/ZIP Co de Phone Number LABORATORY [facility] [address] [place] [address] * (ABNORMAL) HCT (02/16/2024 9:57 AM EST) HCT 27.7(L) 40.0 - 48.4 % 02/16/2024 10:15 AM EST LABORATORY [facility] Blood Venous blood specimen / Unknown Venipuncture / Unknown 02/16/2024 9:57 AM EST 02/16/2024 10:04 AM EST Bill Kang MD LAB BLOOD ORDERABLE S Final Result Performing Organization Address City/[facility] Co de Phone Number LABORATORY [facility] [address] [place] [address] * FIBRINOGEN (02/16/2024 9:57 AM EST) Fibrinogen 261 178 - 467 mg/dL 02/16/2024 10:23 AM EST LABORATORY [facility] Blood Venous blood specimen / Unknown Venipuncture / Unknown 02/16/2024 9:57 AM EST 02/16/2024 10:04 AM EST Bill Kang MD LAB BLOOD ORDERABLE S Final Result Performing Organization Address City/[facility] Co de Phone Number LABORATORY [facility] [address] [place] [address] * ACT, POINT OF CARE (02/16/2024 9:43 AM EST) ACT 464 50 - 1,000 secs 02/16/2024 1:38 PM EST [facility] Blood 02/16/2024 9:43 AM EST 02/16/2024 1:38 PM EST [facility]ative [facility] - 02/16/2024 1:38 PM EST NORMAL (NON-HEPARINIZED) 74-137 SECONDS HEPARINIZED 200+ SECONDS CRITICAL GREATER THAN 1000 SECONDS us Bill Kang MD LAB POINT O F CARE TEST DOCKED DEVICE UNSOLICITED RESULTS Final Result [facility] [address] [place] [address] * (ABNORMAL) BLOOD GAS WITH CHEMISTRY, POINT OF CARE (02/16/2024 9:39 AM EST) Draw Site Arterial Draw 02/16/2024 1:39 PM EST [facility] [employer] pH i-STAT 7.356 7.350 - 7.450 02/16/2024 1:39 PM EST [facility] [employer] pCO2 i-STAT 45.5(H) 35.0 - 45.0 mm Hg 02/16/2024 1:39 PM EST [facility] [employer] pO2 i-STAT 253(H) 75 - 100 mm Hg 02/16/2024 1:39 PM EST [facility] [employer] Base Excess i-STAT 0 -2 - 2 mmol/L 02/16/2024 1:39 PM EST [facility] [employer] Bicarbonate i-STAT 25.5 23.0 - 31.0 mmol/L 02/16/2024 1:39 PM EST [facility] [employer] O2 Saturation i-STAT 100.0(H) 94.0 - 98.0 % 02/16/2024 1:39 PM EST [facility] [employer] GLUCOSE - POCT 112 70 - 120 mg/dL 02/16/2024 1:39 PM EST [facility] POTASSIUM - POCT 4.2 3.5 - 5.1 mmol/L 02/16/2024 1:39 PM EST [facility] [employer] SODIUM - POCT 138 135 - 146 mmol/L 02/16/2024 1:39 PM EST [facility] Calcium, ionized 1.10(L) 1.13 - 1.32 mmol/L 02/16/2024 1:39 PM EST [facility] Hemoglobin i-STAT 11.2(L) 14.0 - 16.8 g/dL 02/16/2024 1:39 PM EST [facility] Hematocrit i-STAT 33(L) 40 - 48 % 02/16/2024 1:39 PM EST [facility] Arterial Draw 02/16/2024 9:3 9 AM EST 02/16/2024 1:39 PM EST Bill Kang MD LAB POINT O F CARE TEST DOCKED DEVICE UNSOLICITED RESULTS Final Result [address] [address] * ACT, POINT OF CARE (02/16/2024 9:30 AM EST) ACT 544 50 - 1,000 secs 02/16/2024 1:39 PM EST [facility] Blood 02/16/2024 9:30 AM EST 02/16/2024 1:39 PM EST Narrative [facility] - 02/16/2024 1:39 PM EST NORMAL (NON-HEPARINIZED) 74-137 SECONDS HEPARINIZED 200+ SECONDS CRITICAL GREATER THAN 1000 SECONDS Bill Kang MD LAB POINT O F CARE TEST DOCKED DEVICE UNSOLICITED RESULTS Final Result [facility] [place] [address] [place] [address] * ACT, POINT OF CARE (02/16/2024 9:30 AM EST) ACT 510 50 - 1,000 secs 02/16/2024 1:38 PM EST [facility] Blood 02/16/2024 9:30 AM EST 02/16/2024 1:38 PM EST Narrative [facility] - 02/16/2024 1:38 PM EST NORMAL (NON-HEPARINIZED) 74-137 SECONDS HEPARINIZED 200+ SECONDS CRITICAL GREATER THAN 1000 SECONDS us Bill Kang MD LAB POINT O F CARE TEST DOCKED DEVICE UNSOLICITED RESULTS Final Result [facility] [address] [place] [address] * (ABNORMAL) BLOOD GAS WITH CHEMISTRY, POINT OF CARE (02/16/2024 8:50 AM EST) Draw Site Venous 02/16/2024 1:38 PM EST [facility] pH i-STAT 7.110(LL) 7.350 - 7.450 02/16/2024 1:38 PM EST [facility] pCO2 i-STAT 56.8(HH) 35.0 - 45.0 mm Hg 02/16/2024 1:38 PM EST [facility] pO2 i-STAT 43(LL) 75 - 100 mm Hg 02/16/2024 1:38 PM EST [facility] Base Excess i-STAT -11(L) -2 - 2 mmol/L 02/16/2024 1:38 PM EST [facility] Bicarbonate i-STAT 18.0(L) 23.0 - 31.0 mmol/L 02/16/2024 1:38 PM EST [facility] O2 Saturation i-STAT 62.0(L) 94.0 - 98.0 % 02/16/2024 1:38 PM EST [facility] GLUCOSE - POCT 75 70 - 120 mg/dL 02/16/2024 1:38 PM EST [facility] POTASSIUM - POCT 3.6 3.5 - 5.1 mmol/L 02/16/2024 1:38 PM EST [facility] SODIUM - POCT 108(LL) 135 - 146 mmol/L 02/16/2024 1:38 PM EST [facility] Calcium, ionized 0.65(LL) 1.13 - 1.32 mmol/L 02/16/2024 1:38 PM EST [facility] Hemoglobin i-STAT 9.2(L) 14.0 - 16.8 g/dL 02/16/2024 1:38 PM EST [facility] Hematocrit i-STAT 27(L) 40 - 48 % 02/16/2024 1:38 PM EST [facility] Venous 02/16/2024 8:50 AM EST 02/16/2024 1:38 PM EST us Bill Kang MD LAB POINT O F CARE TEST DOCKED DEVICE UNSOLICITED RESULTS Final Result [facility] [address] [place] [address] * (ABNORMAL) BLOOD GAS WITH CHEMISTRY, POINT OF CARE (02/16/2024 8:35 AM EST) Draw Site Venous 02/16/2024 1:38 PM EST [facility] pH i-STAT 7.341(L) 7.350 - 7.450 02/16/2024 1:38 PM EST [facility] pCO2 i-STAT 47.2(H) 35.0 - 45.0 mm Hg 02/16/2024 1:38 PM EST [facility] pO2 i-STAT 292(H) 75 - 100 mm Hg 02/16/2024 1:38 PM EST [facility] Base Excess i-STAT -1 -2 - 2 mmol/L 02/16/2024 1:38 PM EST [facility] Bicarbonate i-STAT 25.5 23.0 - 31.0 mmol/L 02/16/2024 1:38 PM EST [facility] O2 Saturation i-STAT 100.0(H) 94.0 - 98.0 % 02/16/2024 1:38 PM EST [facility] GLUCOSE - POCT 111 70 - 120 mg/dL 02/16/2024 1:38 PM EST [facility] POTASSIUM - POCT 4.0 3.5 - 5.1 mmol/L 02/16/2024 1:38 PM EST [facility] SODIUM - POCT 137 135 - 146 mmol/L 02/16/2024 1:38 PM EST [facility] Calcium, ionized 1.14 1.13 - 1.32 mmol/L 02/16/2024 1:38 PM EST [facility] Hemoglobin i-STAT 12.9(L) 14.0 - 16.8 g/dL 02/16/2024 1:38 PM EST [facility] Hematocrit i-STAT 38(L) 40 - 48 % 02/16/2024 1:38 PM EST [facility] Venous 02/16/2024 8:35 AM EST 02/16/2024 1:38 PM EST Bill Kang MD LAB POINT O F CARE TEST DOCKED DEVICE UNSOLICITED RESULTS Final Result Performing Organization Address [facility]/ZIP Co de Phone Number [facility] [address] [place] [address] * ACT, POINT OF CARE (02/16/2024 8:25 AM EST) [facility] ACT 118 50 - 1,000 secs 02/16/2024 1:38 PM EST [facility] Blood 02/16/2024 8:25 AM EST 02/16/2024 1:38 PM EST Narrative [facility] - 02/16/2024 1:38 PM EST NORMAL (NON-HEPARINIZED) 74-137 SECONDS HEPARINIZED 200+ SECONDS CRITICAL GREATER THAN 1000 SECONDS Bill Kang MD LAB POINT O F CARE TEST DOCKED DEVICE UNSOLICITED RESULTS Final Result Performing Organization Address [facility] de Phone Number [facility] [address] [place] [address] * (ABNORMAL) BLOOD GAS WITH CHEMISTRY, POINT OF CARE (02/16/2024 8:24 AM EST) [facility] Draw Site Arterial Draw 02/16/2024 1:38 PM EST [facility] pH i-STAT 7.337(L) 7.350 - 7.450 02/16/2024 1:38 PM EST [facility] pCO2 i-STAT 49.8(H) 35.0 - 45.0 mm Hg 02/16/2024 1:38 PM EST [facility] pO2 i-STAT 546(H) 75 - 100 mm Hg 02/16/2024 1:38 PM EST [facility] Base Excess i-STAT 0 -2 - 2 mmol/L 02/16/2024 1:38 PM EST [facility] Bicarbonate i-STAT 26.7 23.0 - 31.0 mmol/L 02/16/2024 1:38 PM EST [facility] O2 Saturation i-STAT 100.0(H) 94.0 - 98.0 % 02/16/2024 1:38 PM EST [facility] GLUCOSE - POCT 104 70 - 120 mg/dL 02/16/2024 1:38 PM EST [facility] POTASSIUM - POCT 4.1 3.5 - 5.1 mmol/L 02/16/2024 1:38 PM EST [facility] SODIUM - POCT 139 135 - 146 mmol/L 02/16/2024 1:38 PM EST [facility] Calcium, ionized 1.15 1.13 - 1.32 mmol/L 02/16/2024 1:38 PM EST [facility] Hemoglobin i-STAT 13.3(L) 14.0 - 16.8 g/dL 02/16/2024 1:38 PM EST [facility] Hematocrit i-STAT 39(L) 40 - 48 % 02/16/2024 1:38 PM EST [facility] Arterial Draw 02/16/2024 8:2 4 AM EST 02/16/2024 1:38 PM EST Bill Kang MD LAB POINT O F CARE TEST DOCKED DEVICE UNSOLICITED RESULTS Final Result [facility] [address] [place] [address] * GLUCOSE METER, POINT OF CARE (02/16/2024 6:12 AM EST) Pathologist [facility] GLUCOSE - POCT 93 70 - 120 mg/dL 02/16/2024 6:14 AM EST [facility] Blood Whole blood specimen / Unknown 02/16/2024 6:12 AM EST 02/16/2024 6:14 AM EST Rola Chavez MD LAB POINT OF CARE TEST DOCKED DEVICE UNSOLICITED RESULTS Final Result [facility] [address] [place] [address] * PREPARE PACKED RED BLOOD CELLS (02/16/2024 6:00 AM EST) Unit Product Code [id number] 02/16/2024 2:22 PM EST [facility] BLOOD BANK Unit Number [id number] 02/16/2024 2:22 PM EST [facility] BLOOD BANK Unit ABO A 02/16/2024 2:22 PM EST [facility] BLOOD B[facility] Unit Rh POS 02/16/2024 2:22 PM EST [facility] BLOOD B[facility] Unit Crossmatch Compatible 02/16/2024 6:18 AM EST [facility] BLOOD B[facility] Unit Status RE 02/16/2024 2:22 PM EST [facility] BLOOD [facility] Unit Blood Type APOS 02/16/2024 2:22 PM EST [facility] BLOOD B[facility] Unit Expiration [id number] 02/16/2024 2:22 PM EST [facility] BLOOD B[facility] Unit Barcode 6200 02/16/2024 2:22 PM EST [facility] BLOOD B[facility] Unit Product Code [id number] 02/16/2024 2:22 PM EST [facility] BLOOD B[facility] Unit Number [id number] 02/16/2024 2:22 PM EST [facility] BLOOD BANK Unit ABO A 02/16/2024 2:22 PM EST [facility] BLOOD B[facility] Unit Rh POS 02/16/2024 2:22 PM EST [facility] BLOOD B[facility] Unit Crossmatch Compatible 02/16/2024 6:18 AM EST [facility] BLOOD BANK Unit Status RE 02/16/2024 2:22 PM EST [facility] BLOOD BANK Unit Blood Type APOS 02/16/2024 2:22 PM EST [facility] BLOOD B[facility] Unit Expiration [id number] 02/16/2024 2:22 PM EST [facility] BLOOD BANK Unit Barcode 6200 02/16/2024 2:22 PM EST [facility] BLOOD BANK 02/16/2024 6:00 AM EST Kaden Ceja MD BLD BANK PRODUCT ORDERABLES Edited Result - Final LABORATORY [facility] BLOOD BANK [address] [place] [address] * PT INR (02/16/2024 3:38 AM EST) Prothrombin Time 14.6 11.6 - 15.2 seconds 02/16/2024 4:07 AM EST LABORATORY [facility] INR 1.1 0.8 - 1.2 02/16/2024 4:07 AM EST LABORATORY [facility] Blood Venous blood specimen / Unknown Venipuncture / Unknown 02/16/2024 3:38 AM EST 02/16/2024 3:45 AM EST Narrative [facility] - 02/16/2024 4:07 AM EST Warfarin Therapy INR: 2.0-3.0 conventional anticoagulation INR: 2.5-3.5 high intensity anticoagulation Sharlene Parr DO LAB BLOOD ORDERABLES Final Res ult LABORATORY [facility] [address] [place] [address] * (ABNORMAL) CBC (02/16/2024 3:38 AM EST) WBC 11.92(H) 4.00 - 10.80 K/uL 02/16/2024 3:53 AM EST [facility] RBC 4.86 4.50 - 5.25 M/uL 02/16/2024 3:53 AM EST [facility] HGB 13.2(L) 14.0 - 16.8 g/dL 02/16/2024 3:53 AM EST [facility] HCT 42.8 40.0 - 48.4 % 02/16/2024 3:53 AM EST [facility] MCV 88.1 82.0 - 99.5 fL 02/16/2024 3:53 AM EST [facility] MCH 27.2 27.0 - 34.0 pg 02/16/2024 3:53 AM EST [facility] MCHC 30.8 32.0 - 36.0 g/dL 02/16/2024 3:53 AM EST [facility] RDW 16.0 11.5 - 15.5 % 02/16/2024 3:53 AM EST [facility] PLT 176 140 - 400 K/uL 02/16/2024 3:53 AM EST [facility] MPV 11.1 6.6 - 11.1 fL 02/16/2024 3:53 AM EST [facility] nRBCs 0 <=0 /100 WBCs 02/16/2024 3:53 AM EST [facility] Blood Venous blood specimen / Unknown Venipuncture / Unknown 02/16/2024 3:38 AM EST 02/16/2024 3:45 AM EST us Sharlene Illar DO LAB BLOOD ORDERABLES Final Res ult [facility] [address] [place] [address] * BASIC METABOLIC PANEL (02/16/2024 3:38 AM EST) BUN 18 6 - 20 mg/dL 02/16/2024 4:15 AM EST [facility] CREATININE 1.0 0.6 - 1.2 mg/dL 02/16/2024 4:15 AM EST [facility] EGFR 79 >=60 mL/min 02/16/2024 4:15 AM EST [facility] Comment:eGFR is calculated b ased on the CKD-EPI 2020 equation. SODIUM 139 135 - 146 mmol/L 02/16/2024 4:15 AM EST [facility] POTASSIUM 4.2 3.5 - 5.1 mmol/L 02/16/2024 4:15 AM EST [facility] CHLORIDE 103 98 - 107 mmol/L 02/16/2024 4:15 AM EST [facility] CO2 24 22 - 32 mmol/L 02/16/2024 4:15 AM EST [facility] ANION GAP 12 7 - 15 mmol/L 02/16/2024 4:15 AM EST [facility] GLUCOSE 89 70 - 120 mg/dL 02/16/2024 4:15 AM EST [facility] CALCIUM 9.3 8.4 - 10.2 mg/dL 02/16/2024 4:15 AM EST [facility] Blood Venous blood specimen / Unknown Venipuncture / Unknown 02/16/2024 3:38 AM EST 02/16/2024 3:45 AM EST Sharleneivanna Parr LAB BLOOD ORDERABLES Final Res ult [facility] [address] [place] [address] * (ABNORMAL) BLOOD GAS, ARTERIAL (02/16/2024 1:41 AM EST) Temperature 37.0 C 02/16/2024 1:49 AM EST [facility] pH, Arterial 7.411 7.350 - 7.450 units 02/16/2024 1:49 AM EST [facility] pCO2, Arterial 40.0 35.0 - 45.0 mmHg 02/16/2024 1:49 AM EST [facility] pO2, Arterial 72.2(L) 75.0 - 100.0 mmHg 02/16/2024 1:49 AM EST [facility] Base Excess, Arterial 0.8 -2.0 - 2.0 mmol/L 02/16/2024 1:49 AM EST [facility] HGB 13.2(L) 14.0 - 16.8 g/dL 02/16/2024 1:49 AM EST [facility] Oxyhemoglobin, Arterial 93.6(L) 94.0 - 99.0 % total Hgb 02/16/2024 1:49 AM EST [facility] Carboxyhemoglobi n, Whole Blood 1.3 <=1.5 % total Hgb 02/16/2024 1:49 AM EST [facility] Comment:Smokers: 0-9.0 % Methemoglobin, Whole Blood 0.4 <=1.5 % total Hgb 02/16/2024 1:49 AM EST [facility] Reduced Hemoglobin, Arterial 4.7 0.0 - 5.0 % total Hgb 02/16/2024 1:49 AM EST [facility] O2 Content, Arterial 17.4 15.0 - 24.0 %vol 02/16/2024 1:49 AM EST [facility] FiO2 Room air % 02/16/2024 1:49 AM EST [facility] O2 Flow, Arterial Room air L/min 02/16/2024 1:49 AM EST LABORATORY [facility] Bicarbonate, Whole Blood 24.9 23.0 - 31.0 mmol/L 02/16/2024 1:49 AM EST LABORATORY [facility] Blood Arterial blood specimen / Unknown Arterial Puncture / Unknown 02/16/2024 1:41 AM EST 02/16/2024 1:46 AM EST Mani CARUSO LAB BLOOD ORDERABLES Final Resul t Performing Organization Address [facility] de Phone Number LABORATORY [facility] [address] [place] [address] * (ABNORMAL) APTT (02/15/2024 11:47 PM EST) aPTT 78(H) 21 - 38 seconds 02/16/2024 12:42 AM EST LAB[facility]ATORY [facility] Blood Venous blood specimen / Unknown Venipuncture / Unknown 02/15/2024 11:47 PM EST 02/15/2024 11:51 PM EST Narrative LABORATORY [facility] - 02/16/2024 12:42 AM EST Anticoagulation may affect testing. Refer to [employer] Test Catalog for a list of effects. Rola Chavez MD LAB BLOOD ORDERABLES Amber l Result Performing Organization Address [facility] de Phone Number LABORATORY [facility] [address] [place] [address] * CULTURE, URINE, QUANTITATIVE (02/15/2024 4:52 PM EST) Culture Growth No significant growth 02/16/2024 1:24 PM EST LAB[facility]ATORY [facility] Urine Urine specimen obtained by clean catch procedure / Unknown Non-blood Collection / Unknown 02/15/2024 4:52 PM EST 02/15/2024 5:00 PM EST Mani CARUSO LAB MICRO - GENERAL ORDERABLES F inal Result Performing Organization Address City/[facility] Co de Phone Number LABORATORY [facility] [address] [place] [address] * (ABNORMAL) URINALYSIS, REFLEX TO MICROSCOPIC (02/15/2024 4:52 PM EST) Color, Urine Light Yellow Colorless, Light Yellow, Yellow, Dark Yellow 02/15/2024 5:12 PM EST [facility] Clarity, Urine Clear Clear 02/15/2024 5:12 PM EST [facility] Glucose, Urine Negative Negative mg/dL 02/15/2024 5:12 PM EST [facility] Bilirubin, Urine Negative Negative 02/15/2024 5:12 PM EST [facility] Ketone, Urine Negative Negative mg/dL 02/15/2024 5:12 PM EST [facility] Specific [place], Urine 1.023 1.003 - 1.030 02/15/2024 5:12 PM EST [facility] Blood, Urine Negative Negative 02/15/2024 5:12 PM EST [facility] pH, Urine 6.5 5.0 - 7.5 Units 02/15/2024 5:12 PM EST [facility] Protein, Urine Negative Negative mg/dL 02/15/2024 5:12 PM EST [facility] Urobilinogen, Urine Normal Normal mg/dL 02/15/2024 5:12 PM EST [facility] Nitrite, Urine Negative Negative 02/15/2024 5:12 PM EST [facility] Esterase, Urine Trace(A) Negative 02/15/2024 5:12 PM EST [facility] RBC, Urine 0-2 0 - 2 /HPF 02/15/2024 5:12 PM EST [facility] WBC, Urine 3-5(A) 0 - 2 /HPF 02/15/2024 5:12 PM EST [facility] Bacteria, Urine 0-25 0 - 25 /HPF 02/15/2024 5:12 PM EST [facility] Urine Non-blood Collection / Unknown 02/15/2024 4:52 PM EST 02/15/2024 5:00 PM EST us Mani CARUSO LAB URINE ORDERABLES Final Resul t LABORATORY [facility] [address] [place] [address] * ABO/RH (02/15/2024 4:36 PM EST) ABO A 02/15/2024 5:50 PM EST [facility] BLOOD BANK Rh Positive 02/15/2024 5:50 PM EST [facility] BLOOD BANK Blood Venous blood specimen / Unknown Venipuncture / Unknown 02/15/2024 4:36 PM EST 02/15/2024 4:45 PM EST [facility] LAB BLOOD BANK TEST ORDERABLES F inal Result Performing Organization Address City/[facility]/ZIP Co de Phone Number LABORATORY [facility] BLOOD BANK [address] [place] [address] * TYPE AND SCREEN (02/15/2024 4:36 PM EST) ABO A 02/15/2024 5:36 PM EST LABORATORY C BLOOD BANK Rh Positive 02/15/2024 5:36 PM EST LABORATORY [facility] BLOOD BANK Red Blood Cell Antibody Screen Negative 02/15/2024 5:36 PM EST LABORATORY [facility] BLOOD BANK Specimen Expiration Date 02/18/2024 23:59 02/15/2024 5:36 PM EST LABORATORY C BLOOD BANK Blood Venous blood specimen / Unknown Venipuncture / Unknown 02/15/2024 4:36 PM EST 02/15/2024 4:45 PM EST [facility] LAB BLOOD BANK TEST ORDERABLES F inal Result Performing Organization Address City/[facility]/ZIP Co de Phone Number LABORATORY [facility] BLOOD BANK [address] [place] [address] * (ABNORMAL) APTT (02/15/2024 4:36 PM EST) aPTT 185(HH) 21 - 38 seconds 02/15/2024 5:35 PM EST [facility] Blood Venous blood specimen / Unknown Venipuncture / Unknown 02/15/2024 4:36 PM EST 02/15/2024 4:45 PM EST Narrative LABORATORY [facility] - 02/15/2024 5:35 PM EST Anticoagulation may affect testing. Refer to [employer] Test Catalog for a list of effects. Rola Chavez MD LAB BLOOD ORDERABLES Amber coleman Result LABORATORY [facility] [address] [place] [address] * [facility] DUPLEX CAROTID BILAT (02/15/2024 3:24 PM EST) Anatomical Region Laterality Modality Neck, Vascular Ultrasound Narrative 02/15/2024 4:32 PM EST VASCULAR LAB RESULTS DATE OF EXAM: 02/15/24 PRESENTING CONDITIONS: pre-op cabg eval PHYSICIAN REPORT Carotid Artery Duplex Examination Immediately before proceeding with the vascular lab procedure reported below, the identity of the patient, the correct exam and the correct procedural site were verified. Jimenez scale and color flow Doppler imaging was performed for evaluation of the right carotid artery. Duplex examination of the right carotid artery identifies atherosclerotic plaque at the carotid bifurcation. The plaque is calcified and appears to have an irregular surface. Color Doppler imaging was performed for evaluation of the right carotid bifurcation. Spectral analysis of the right internal carotid artery demonstrates peak systolic velocities of 110 cm/sec. Maximum end diastolic velocities are 24 cm/sec. Peak right common carotid velocity is 76 cm/sec. The right internal carotid to common carotid ratio is 1.4. The right external carotid artery has a peak velocity of 84 centimeters per second. Jimenez scale and color flow Doppler imaging was performed for the evaluation of the left carotid artery. Duplex examination of the left carotid artery identifies atherosclerotic plaque at the carotid bifurcation. The plaque is calcified and appears to have an irregular surface. Color Doppler imaging was performed for the evaluation of the left carotid bifurcation. Spectral analysis of the left internal carotid artery demonstrates peak systolic velocities of 111 cm/sec. Maximum end diastolic velocities are 20 cm/sec. Peak left common carotid velocity is 86 cm/sec. The left internal carotid to common carotid ratio is 1.3. The left external carotid artery has a peak velocity of 247 centimeters per second. The right vertebral artery demonstrates antegrade flow. The left vertebral artery demonstrates antegrade flow. Impression: Right carotid artery duplex examination indicates evidence of less than 50% stenosis of the internal carotid artery. Degree of stenosis may be greater than reported due to heavily calcified plaque. Left carotid artery duplex examination indicates evidence of less than 50% stenosis of the internal carotid artery. Degree of stenosis may be greater than reported due to heavily calcified plaque. Mani Jolanta BARN MANAGER RAD VASCULAR Final Result * VASC VEIN MAP BYPASS GRAFT PREOP EVAL (02/15/2024 3:20 PM EST) Anatomical Region Laterality Modality Extremity, Vascular Ultrasound Narrative 02/15/2024 4:32 PM EST VASCULAR LAB RESULTS DATE OF EXAMINATION: 02/15/24 INDICATION: Pre op vein map LOWER EXTREMITY VENOUS DUPLEX FOR PREOP VEIN MAPPING Immediately before proceeding with the vascular lab procedure below, the identity of the patient, the correct exam and the correct procedural site were verified. Jimenez scale, color flow and spectral doppler were performed for this examination. Lower extremity great saphenous vein examination with duplex imaging was conducted for preoperative mapping prior to surgery. Right great saphenous vein is patent with normal venous flow with the following size measurements: Proximal thigh 3.6 mm Mid-thigh 3.1 mm Distal thigh 2.8 mm Right knee 2.7 mm Proximal calf 1.9 mm Mid-calf 2.0 mm Right ankle 2.5 mm Left great saphenous vein is patent with normal venous flow with the following size measurements: Proximal thigh 3.1 mm Mid-thigh 2.3 mm Distal thigh 1.9 mm Left knee 2.6 mm Proximal calf 2.0 mm Mid-calf 2.1 mm Left ankle 2.6 mm CONCLUSION: Patent right great saphenous vein with size measurements as noted., Patent left great saphenous vein with size measurements as noted. Mani Jolanta SHADY RAD VASCULAR Final Result * STAPH AUREUS PCR (02/15/2024 2:13 PM EST) MRSA PCR Result Negative Negative 4:20 PM EST LABORATORY [facility] Comment:No Methicillin resis tant Staphylococcus aureus detected by PCR (amplified probe). Staphylococcus aureus PCR Result Negative Negative 02/15/2024 4:20 PM EST LAB[facility]ATORY [facility] Comment:No Staphylococcus au reus detected by PCR (amplified probe). Upper Respiratory Swab of internal nose / Unknown Non-blood Collection / Unknown 02/15/2024 2:13 PM EST 02/15/2024 2:25 PM EST Mani CARUSO LAB MICRO - GENERAL ORDERABLES F inal Result LABORATORY [facility] [address] [place] [address] * XR CHEST 1 VIEW (02/15/2024 2:12 PM EST) Anatomical Region Laterality Modality Chest Computed Radiogr aphy 02/15/2024 3:15 PM EST Impressions 02/15/2024 3:12 PM EST IMPRESSION No acute cardiopulmonary findings. Narrative 02/15/2024 3:12 PM EST EXAM Chest-1 view -02/15/2024 2:12 pm HISTORY pre-op cabg eval COMPARISON No Comparison. TECHNIQUE AP view of the chest was obtained. FINDINGS No evidence of infiltrate. There is no evidence for pleural effusion or pneumothorax. The pulmonary vascularity is WNL. The cardiomediastinal silhouette is normal in size and configuration. Procedure Note Giovani Barker, DO - 02/15/2024 EXAM Chest-1 view -02/15/2024 2:12 pm HISTORY pre-op cabg eval COMPARISON No Comparison. TECHNIQUE AP view of the chest was obtained. FINDINGS No evidence of infiltrate. There is no evidence for pleural effusion orpneumothorax. The pulmonary vascularity is WNL. The cardiomediastinalsilhouette is normal in size and configuration. IMPRESSION IMPRESSION No acute cardiopulmonary findings. Mani CARUSO RADIOLOGY (RAD GENERAL) Final Re sult * ACT, POINT OF CARE (02/15/2024 9:32 AM EST) ACT 297 50 - 1,000 secs 02/15/2024 9:43 AM EST [facility] Blood 02/15/2024 9:32 AM EST 02/15/2024 9:43 AM EST Narrative [facility] - 02/15/2024 9:43 AM EST NORMAL (NON-HEPARINIZED) 74-137 SECONDS HEPARINIZED 200+ SECONDS CRITICAL GREATER THAN 1000 SECONDS Rola Chavez MD LAB POINT OF CARE TEST DOCKED DEVICE UNSOLICITED RESULTS Final Result Performing Organization Address City/[facility] Co de Phone Number [facility] [address] [place] [address] * T4, TOTAL (02/15/2024 5:17 AM EST) Pathologist [facility] T4, Total 7.0 4.6 - 12.0 ug/dL 02/15/2024 2:12 PM EST [facility] Blood Venous blood specimen / Unknown Venipuncture / Unknown 02/15/2024 5:17 AM EST 02/15/2024 5:21 AM EST Mani CARUSO LAB BLOOD ORDERABLES Final Resul t Performing Organization Address City/[facility] Co de Phone Number LAB[facility]ATORY [facility] [address] [place] [address] * TSH (02/15/2024 5:17 AM EST) Pathologist [facility] TSH 3.26 0.27 - 4.20 uIU/mL 02/15/2024 2:12 PM EST LAB[facility]ATORY [facility] Blood Venous blood specimen / Unknown Venipuncture / Unknown 02/15/2024 5:17 AM EST 02/15/2024 5:21 AM EST Mani CARUSO LAB BLOOD ORDERABLES Final Resul t Performing Organization Address [facility] de Phone Number LABORATORY [facility] [address] [place] [address] * (ABNORMAL) RETICULOCYTE PANEL (02/15/2024 5:17 AM EST) Pathologist [facility] Reticulocyte Percent 1.79 0.80 - 1.90 % 02/15/2024 1:56 PM EST LAB[facility]ORY [facility] Absolute Reticulocyte 95.2 31.3 - 100.1 K/uL 02/15/2024 1:56 PM EST [facility] Immature Reticuloctye Fraction 20.8(H) 2.5 - 20.6 % 02/15/2024 1:56 PM EST [facility] Reticulocyte Hemoglobin 30.7 29.7 - 37.4 pg 02/15/2024 1:56 PM EST [facility] Blood Venous blood specimen / Unknown Venipuncture / Unknown 02/15/2024 5:17 AM EST 02/15/2024 5:21 AM EST [facility] BLOOD ORDERABLES Final Resul t Performing Organization Address City/[facility]/ZIP Co de Phone Number [facility] [address] [place] [address] * (ABNORMAL) IRON SCREEN, INCLUDING TIBC (02/15/2024 5:17 AM EST) Iron 66 45 - 176 ug/dL 02/15/2024 2:35 PM EST [facility] Iron Binding Capacity 230(L) 250 - 425 ug/dL 02/15/2024 2:35 PM EST [facility] Transferrin Saturation Percent 29 15 - 55 % 02/15/2024 2:35 PM EST [facility] Blood Venous blood specimen / Unknown Venipuncture / Unknown 02/15/2024 5:17 AM EST 02/15/2024 5:21 AM EST Mani CARUSO LAB BLOOD ORDERABLES Final Resul t [facility] [address] [place] [address] * (ABNORMAL) FERRITIN (02/15/2024 5:17 AM EST) Ferritin 463(H) 30 - 400 ng/mL 02/15/2024 2:12 PM EST [facility] Blood Venous blood specimen / Unknown Venipuncture / Unknown 02/15/2024 5:17 AM EST 02/15/2024 5:21 AM EST [facility] LAB BLOOD ORDERABLES Final Resul t Performing Organization Address City/[facility]/ZIP Co de Phone Number LAB[facility]ATORY [facility] [address] [place] [address] * MAGNESIUM (02/15/2024 5:17 AM EST) Magnesium 2.3 1.5 - 2.6 mg/dL 02/15/2024 7:22 AM EST [facility] Blood Venous blood specimen / Unknown Venipuncture / Unknown 02/15/2024 5:17 AM EST 02/15/2024 5:21 AM EST Mg June DO LAB BLOOD ORDERABLES Final Resu lt Performing Organization Address [facility] Co de Phone Number LAB[facility]ATORY [facility] [address] [place] [address] * PT INR (02/15/2024 5:17 AM EST) Prothrombin Time 13.9 11.6 - 15.2 seconds 02/15/2024 5:46 AM EST LAB[facility]ORY [facility] INR 1.1 0.8 - 1.2 02/15/2024 5:46 AM EST [facility] Blood Venous blood specimen / Unknown Venipuncture / Unknown 02/15/2024 5:17 AM EST 02/15/2024 5:21 AM EST Narrative [facility] - 02/15/2024 5:46 AM EST Warfarin Therapy INR: 2.0-3.0 conventional anticoagulation INR: 2.5-3.5 high intensity anticoagulation us Sharlene Parr DO LAB BLOOD ORDERABLES Final Res ult Performing Organization Address City/[facility]/ZIP Co de Phone Number LAB[facility]ATORY [facility] [address] [place] [address] * CBC (02/15/2024 5:17 AM EST) WBC 10.63 4.00 - 10.80 K/uL 02/15/2024 5:33 AM EST [facility] RBC 5.30 4.50 - 5.25 M/uL 02/15/2024 5:33 AM EST [facility] HGB 14.4 14.0 - 16.8 g/dL 02/15/2024 5:33 AM EST [facility] HCT 47.2 40.0 - 48.4 % 02/15/2024 5:33 AM EST [facility] MCV 89.1 82.0 - 99.5 fL 02/15/2024 5:33 AM EST [facility] MCH 27.2 27.0 - 34.0 pg 02/15/2024 5:33 AM EST [facility] MCHC 30.5 32.0 - 36.0 g/dL 02/15/2024 5:33 AM EST [facility] RDW 15.9 11.5 - 15.5 % 02/15/2024 5:33 AM EST [facility] PLT 187 140 - 400 K/uL 02/15/2024 5:33 AM EST [facility] MPV 10.3 6.6 - 11.1 fL 02/15/2024 5:33 AM EST [facility] nRBCs 0 <=0 /100 WBCs 02/15/2024 5:33 AM EST [facility] Blood Venous blood specimen / Unknown Venipuncture / Unknown 02/15/2024 5:17 AM EST 02/15/2024 5:21 AM EST us Sharlene Illar DO LAB BLOOD ORDERABLES Final Res ult [facility] [address] [place] [address] * BASIC METABOLIC PANEL (02/15/2024 5:17 AM EST) BUN 17 6 - 20 mg/dL 02/15/2024 5:52 AM EST [facility] CREATININE 1.0 0.6 - 1.2 mg/dL 02/15/2024 5:52 AM EST [facility] EGFR 78 >=60 mL/min 02/15/2024 5:52 AM EST [facility] Comment:eGFR is calculated b ased on the CKD-EPI 2020 equation. SODIUM 138 135 - 146 mmol/L 02/15/2024 5:52 AM EST [facility] POTASSIUM 4.0 3.5 - 5.1 mmol/L 02/15/2024 5:52 AM EST [facility] CHLORIDE 102 98 - 107 mmol/L 02/15/2024 5:52 AM EST [facility] CO2 26 22 - 32 mmol/L 02/15/2024 5:52 AM EST [facility] ANION GAP 10 7 - 15 mmol/L 02/15/2024 5:52 AM EST [facility] GLUCOSE 98 70 - 120 mg/dL 02/15/2024 5:52 AM EST [facility] CALCIUM 9.2 8.4 - 10.2 mg/dL 02/15/2024 5:52 AM EST [facility] Blood Venous blood specimen / Unknown Venipuncture / Unknown 02/15/2024 5:17 AM EST 02/15/2024 5:21 AM EST us Sharlene Parr DO LAB BLOOD ORDERABLES Final Res ult Performing Organization Address City/[facility]/ZIP Co de Phone Number LAB[facility]ATORY [facility] [address] [place] [address] * (ABNORMAL) APTT (02/15/2024 1:34 AM EST) aPTT 103(H) 21 - 38 seconds 02/15/2024 2:28 AM EST [facility] Blood Venous blood specimen / Unknown Venipuncture / Unknown 02/15/2024 1:34 AM EST 02/15/2024 1:56 AM EST Narrative [facility] - 02/15/2024 2:28 AM EST Anticoagulation may affect testing. Refer to [employer] Test Catalog for a list of effects. us Rola Chavez MD LAB BLOOD ORDERABLES Amber l Result LAB[facility]ATORY [facility] [address] [place] [address] * CARDIAC CATHETERIZATION REPORT (02/15/2024) DATE OF PROCEDURE 02/15/2024 [facility] DIAGNOSTIC Kateryna Barrow MD [facility] C[facility] CONCLUSIONS * Coronary disease - hemodynamically significant- MVCAD [id number] with severe calcific disease (Berger 1-1-1). There was significant dampening every time we engaged the LMCA and we were unable to pass an IVUS wire into the LAD mRCA 95% stenosis followed by distal RCA 70% stenosis [facility] PROCEDURES Coronary Angiography 0:23-0:37 hours:minutes Sedation [facility] TOTAL CONTRAST VOLUME 70 ml [facility] TOTAL RADIATION 0.26 Gy [facility] COMPLICATIONS No complication None [facility] 02/15/2024 02/16/2024 9:0 4 AM EST Keith Alexis MD CARD CATH Final Resu lt [email or web address] CARDI[facility] * (ABNORMAL) APTT (02/14/2024 7:07 PM EST) aPTT 92(H) 21 - 38 seconds 02/14/2024 8:04 PM EST LAB[facility]ATORY [facility] Blood Venous blood specimen / Unknown Venipuncture / Unknown 02/14/2024 7:07 PM EST 02/14/2024 7:21 PM EST Narrative [facility]ORY [facility] - 02/14/2024 8:04 PM EST Anticoagulation may affect testing. Refer to [employer] Test Catalog for a list of effects. Rola Chavez MD LAB BLOOD ORDERABLES Amber l Result [facility]ATORY [facility] [address] [place] [address] * (ABNORMAL) APTT (02/14/2024 11:09 AM EST) aPTT 53(H) 21 - 38 seconds 02/14/2024 11:54 AM EST [facility] Blood Venous blood specimen / Unknown Venipuncture / Unknown 02/14/2024 11:09 AM EST 02/14/2024 11:23 AM EST Narrative [facility] - 02/14/2024 11:54 AM EST Anticoagulation may affect testing. Refer to [facility] Test Catalog for a list of effects. Rola Chavez MD LAB BLOOD ORDERABLES Amber l Result Performing Organization Address City/[facility]/ZIP Co de Phone Number [facility]ATORY [facility] [address] [place] [address] * ECHO, COMPLETE (2D), TRANS-THORACIC (02/14/2024 10:58 AM EST) LEFT VENTRICULAR EJECTION FRACTION 55 % [facility] 02/14/2024 10:0 6 AM EST Rosamaria Bernardo DO ECHOCARDIOLOGY Final Result Performing Organization Address [facility] Co de Phone Number [facility] * PT INR (02/14/2024 3:35 AM EST) Prothrombin Time 14.3 11.6 - 15.2 seconds 02/14/2024 4:05 AM EST [facility] INR 1.1 0.8 - 1.2 02/14/2024 4:05 AM EST [facility] Blood Venous blood specimen / Unknown Venipuncture / Unknown 02/14/2024 3:35 AM EST 02/14/2024 3:39 AM EST Narrative LABORATORY C - 02/14/2024 4:05 AM EST Warfarin Therapy INR: 2.0-3.0 conventional anticoagulation INR: 2.5-3.5 high intensity anticoagulation Sharlene Parr DO LAB BLOOD ORDERABLES Final Res ult Performing Organization Address City/[facility]/ZIP Co de Phone Number [facility]ORY [facility] [address] [place] [address] * (ABNORMAL) CBC (02/14/2024 3:35 AM EST) WBC 10.75 4.00 - 10.80 K/uL 02/14/2024 3:53 AM EST LABORATORY [facility] RBC 4.78 4.50 - 5.25 M/uL 02/14/2024 3:53 AM EST [facility] HGB 12.8(L) 14.0 - 16.8 g/dL 02/14/2024 3:53 AM EST [facility] HCT 42.5 40.0 - 48.4 % 02/14/2024 3:53 AM EST [facility] MCV 88.9 82.0 - 99.5 fL 02/14/2024 3:53 AM EST [facility] MCH 26.8 27.0 - 34.0 pg 02/14/2024 3:53 AM EST [facility] MCHC 30.1 32.0 - 36.0 g/dL 02/14/2024 3:53 AM EST [facility] RDW 15.9 11.5 - 15.5 % 02/14/2024 3:53 AM EST [facility] PLT 194 140 - 400 K/uL 02/14/2024 3:53 AM EST [facility] MPV 10.7 6.6 - 11.1 fL 02/14/2024 3:53 AM EST [facility] nRBCs 0 <=0 /100 WBCs 02/14/2024 3:53 AM EST [facility] Blood Venous blood specimen / Unknown Venipuncture / Unknown 02/14/2024 3:35 AM EST 02/14/2024 3:39 AM EST us Sharlene Parr DO LAB BLOOD ORDERABLES Final Res ult [facility] [address] [place] [address] * BASIC METABOLIC PANEL (02/14/2024 3:35 AM EST) BUN 19 6 - 20 mg/dL 02/14/2024 4:12 AM EST [facility] CREATININE 1.1 0.6 - 1.2 mg/dL 02/14/2024 4:12 AM EST [facility] EGFR 69 >=60 mL/min 02/14/2024 4:12 AM EST [facility] Comment:eGFR is calculated b ased on the CKD-EPI 2020 equation. SODIUM 140 135 - 146 mmol/L 02/14/2024 4:12 AM EST [facility] POTASSIUM 3.9 3.5 - 5.1 mmol/L 02/14/2024 4:12 AM EST [facility] CHLORIDE 104 98 - 107 mmol/L 02/14/2024 4:12 AM EST LABORATORY C CO2 26 22 - 32 mmol/L 02/14/2024 4:12 AM EST LABORATORY C ANION GAP 10 7 - 15 mmol/L 02/14/2024 4:12 AM EST LABORATORY C GLUCOSE 96 70 - 120 mg/dL 02/14/2024 4:12 AM EST LABORATORY C CALCIUM 8.8 8.4 - 10.2 mg/dL 02/14/2024 4:12 AM EST [facility] Blood Venous blood specimen / Unknown Venipuncture / Unknown 02/14/2024 3:35 AM EST 02/14/2024 3:39 AM EST Sharlene Parr DO LAB BLOOD ORDERABLES Final Res ult Performing Organization Address [facility] Co de Phone Number LAB[facility]ATORY [facility] [address] [place] [address] * (ABNORMAL) APTT (02/14/2024 3:35 AM EST) aPTT 48(H) 21 - 38 seconds 02/14/2024 4:06 AM EST [facility] Blood Venous blood specimen / Unknown Venipuncture / Unknown 02/14/2024 3:35 AM EST 02/14/2024 3:39 AM EST Narrative [facility] - 02/14/2024 4:06 AM EST Anticoagulation may affect testing. Refer to [employer] Test Catalog for a list of effects. Eladio Teixeira MD LAB BLOOD ORDERABLES Fin al Result Performing Organization Address City/[facility]/ZIP Co de Phone Number LAB[facility]ATORY [facility] [address] [place] [address] * HEMOGLOBIN A1C (02/14/2024 3:35 AM EST) Hemoglobin A1C 5.5 4.0 - 5.6 % 02/14/2024 4:01 AM EST LABORATORY C Comment:The use of HbA1c to monitor glycemic status is based on normal hemoglobin and HbA composition. This test should not be used in patients with abnormal hemoglobin that affects the half life of the red blood cell or the in vivo glycation rates. Estimated Average Glucose 111 <126 mg/dL 02/14/2024 4:01 AM EST [facility]ORY [facility] Blood Venous blood specimen / Unknown Venipuncture / Unknown 02/14/2024 3:35 AM EST 02/14/2024 3:39 AM EST us Sharlene Eusebioar DO LAB BLOOD ORDERABLES Final Res ult LAB[facility]ATORY [facility] [address] [place] [address] * (ABNORMAL) LIPID PANEL WITHOUT DIRECT LDL (02/14/2024 3:35 AM EST) Triglycerides 134 <=174 mg/dL 02/14/2024 4:12 AM EST [facility] Comment: Triglyceride Reference Ranges (mg/dL): <150 Acceptable 150-174 Borderline high 175-499 High >=500 Very high Cholesterol 125 <200 mg/dL 02/14/2024 4:12 AM EST [facility]ORY [facility] Comment: Total Cholesterol Reference Ranges (mg/dL): <200 Desirable 200-239 Borderline high >=240 High HDL Cholesterol 30(L) >39 mg/dL 4:12 AM [facility]AT[facility] Comment: HDL Cholesterol Reference Ranges (mg/dL): >=60 High (Desirable) <50 Low (Undesirable) For Females <40 Low (Undesirable) For Males Non-HDL Cholesterol 95 <=159 mg/dL 02/14/2024 4:12 AM EST LAB[facility]ORY [facility] Comment: Non-HDL Cholesterol Reference Range (mg/dL): <100 Target level for high risk ASCVD patient <130 Optimal for general population 130-159 Near optimal for general population 160-189 Borderline High 190-219 High >=220 Very High LDL Cholesterol 68 <=129 mg/dL 02/14/2024 4:12 AM EST [facility] Comment: LDL Cholesterol Reference Ranges (mg/dL): <70 Target level for high risk ASCVD patient <100 Optimal for general population 100-129 Near optimal for general population 130-159 Borderline high 160-189 High >=190 Very high Blood Venous blood specimen / Unknown Venipuncture / Unknown 02/14/2024 3:35 AM EST 02/14/2024 3:39 AM EST us Sharlene Illar DO LAB BLOOD ORDERABLES Final Res ult [facility] [address] [place] [address] * (ABNORMAL) CBC (02/13/2024 8:34 PM EST) WBC 9.38 4.00 - 10.80 K/uL 02/13/2024 8:59 PM EST [facility] RBC 5.07 4.50 - 5.25 M/uL 02/13/2024 8:59 PM EST [facility] HGB 13.8(L) 14.0 - 16.8 g/dL 02/13/2024 8:59 PM EST [facility] HCT 44.3 40.0 - 48.4 % 02/13/2024 8:59 PM EST [facility] MCV 87.4 82.0 - 99.5 fL 02/13/2024 8:59 PM EST [facility] MCH 27.2 27.0 - 34.0 pg 02/13/2024 8:59 PM EST [facility] MCHC 31.2 32.0 - 36.0 g/dL 02/13/2024 8:59 PM EST [facility] RDW 16.1 11.5 - 15.5 % 02/13/2024 8:59 PM EST [facility] PLT 194 140 - 400 K/uL 02/13/2024 8:59 PM EST [facility] MPV 10.5 6.6 - 11.1 fL 02/13/2024 8:59 PM EST [facility] nRBCs 0 <=0 /100 WBCs 02/13/2024 8:59 PM EST [facility] Blood Venous blood specimen / Unknown Venipuncture / Unknown 02/13/2024 8:34 PM EST 02/13/2024 8:51 PM EST us Sharlene Illar DO LAB BLOOD ORDERABLES Final Res ult [facility] [address] [place] [address] * APTT (02/13/2024 8:34 PM EST) aPTT 30 21 - 38 seconds 02/13/2024 9:03 PM EST LAB[facility]ORY [facility] Blood Venous blood specimen / Unknown Venipuncture / Unknown 02/13/2024 8:34 PM EST 02/13/2024 8:51 PM EST Narrative LABORATORY [facility] - 02/13/2024 9:03 PM EST Anticoagulation may affect testing. Refer to [employer] Test Catalog for a list of effects. [facility] LAB BLOOD ORDERABLES Final Res ult LABORATORY [facility] [address] [place] [address] * PT INR (02/13/2024 8:34 PM EST) Prothrombin Time 14.0 11.6 - 15.2 seconds 02/13/2024 9:02 PM EST LABORATORY [facility] INR 1.1 0.8 - 1.2 02/13/2024 9:02 PM EST LAB[facility]ATORY [facility] Blood Venous blood specimen / Unknown Venipuncture / Unknown 02/13/2024 8:34 PM EST 02/13/2024 8:51 PM EST Narrative LABORATORY [facility] - 02/13/2024 9:02 PM EST Warfarin Therapy INR: 2.0-3.0 conventional anticoagulation INR: 2.5-3.5 high intensity anticoagulation [facility] LAB BLOOD ORDERABLES Final Res ult LABORATORY [facility] [address] [place] [address] * HEPARIN, UNFRACTIONATED (02/13/2024 8:34 PM EST) Heparin, Unfractionated <0.10 <0.10 IU/mL 02/13/2024 9:05 PM EST LABORATORY [facility] Comment: Unfractionated therapeutic ranges for Anti Xa activity: For Cardiac/Neurologic treatment: 0.3 to 0.6 IU/mL. For treatment of DVT or Pulmonary Embolism: 0.3 to 0.7 IU/mL. Blood Venous blood specimen / Unknown Venipuncture / Unknown 02/13/2024 8:34 PM EST 02/13/2024 8:51 PM EST Sharleneivanna Parr DO LAB BLOOD ORDERABLES Final Res ult Performing Organization Address City/State/[facility] Co de Phone Number LABORATORY [facility] [address] [place] [address] documented in this encounter Visit Diagnoses Diagnosis Unstable angina (HCC)- Primary Intermediate coronary syndrome Unstable angina (HCC) Intermediate coronary syndrome Chest pain Chest pain, unspecified Aortic valve stenosis, etiology of cardiac valve disease unspecified 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) Nonrheumatic aortic valve stenosis Aortic valve disorders Valvular heart disease Endocarditis, valve unspecified, 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 S/P AVR (aortic valve replacement) Heart valve replaced by other means Status post surgery Coronary atherosclerosis due to calcified coronary lesion (CODE) [I25.84] Unspecified atrial flutter (HCC) [I48.92] Essential hypertension with goal blood pressure less than 130/80 [I10] Obstructive hypertrophic cardiomyopathy (HCC) [I42.1] Hypertrophic obstructive cardiomyopathy Personal history of nicotine dependence [Z87.891] Personal history of tobacco use, presenting hazards to health [facility] (current) use of anticoagulants [Z79.01] Long-term (current) use of anticoagulants Gout, unspecified [M10.9] Gout, unspecified S/P AVR Heart valve replaced by other means Encounter for other preprocedural examination Occlusion and stenosis of bilateral carotid arteries Coronary atherosclerosis due to lipid rich plaque Paroxysmal atrial fibrillation (HCC) Atrial fibrillation Encounter for surgical aftercare following surgery on the circulatory system Pneumothorax, unspecified Other nonspecific abnormal finding of lung field Presence of other specified devices Encounter for fitting and adjustment of other gastrointestinal appliance and device Atelectasis Pulmonary collapse Abdominal distension (gaseous) Flatulence, eructation, and gas pain Other specified symptoms and signs involving the circulatory and respiratory systems Other specified diseases of gallbladder Paroxysmal atrial fibrillation (HCC) Atrial fibrillation Hypertrophic cardiomyopathy (HCC) Other hypertrophic cardiomyopathy Dyslipidemia, goal LDL below 100 Other and unspecified hyperlipidemia Essential hypertension with goal blood pressure less than 130/80 Nonrheumatic aortic valve stenosis Aortic valve disorders 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 NOTE: Maximum of 4000 mg per 24 hours of acetaminophen from all acetaminophen containing products., Indication: Patient is strictly NPO New Bag 02/16/2024 6:20 PM EST 1,000 mg 400 mL/hr Acetaminophen (Tylenol) tab 975 mg 975 mg, Oral, Q8H, First dose on Thu02/16/24 at 1445, Last dose on Thu02/21/24 at 0600, For 5 days, Avoid in patients with severe hepatic impairment or severe active liver disease. Use for 5 days, Post-op Given 02/21/2024 6:28 AM EST 975 mg Given 02/20/2024 9:57 PM EST 975 mg Given 02/20/2024 2:05 PM EST 975 mg Acetaminophen (Tylenol) tab 975 mg 975 mg, Oral, Q6H PRN Pain, Mild, Starting on Thu02/21/24 at 0000, Until Thu02/21/24 at 1538, Begin after around the clock acetaminophen order discontinued (S+5). Maximum 4 g acetaminophen/day. Avoid in patients with severe hepatic impairment or severe active liver disease., Post-op albumin (human) (Plasbumin-5) 5 % infusion 25 g Intravenous, Please scan heating engineer "square" 2D barcode to record Lot/ Expiration, ONCE, 1 dose, On Thu02/16/24 at 1715 New Bag 02/16/2024 5:05 PM EST 25 g 5 00 mL/hr albumin (human) (Plasbumin-5) 5 % infusion 25 g Intravenous, Please scan heating engineer "square" 2D barcode to record Lot/ Expiration, ONCE, 1 dose, On Thu02/16/24 at 1900 New Bag 02/16/2024 6:26 PM EST 25 g 5 00 mL/hr Allopurinol (Zyloprim) tab 300 mg 300 mg, Oral, Daily(AM), First dose on Thu02/14/24 at 0900, Until Discontinued Given 02/21/2024 8:33 AM EST 300 mg Given 02/20/2024 8:39 AM EST 300 mg Given 02/19/2024 9:00 AM EST 300 mg Amiodarone (Cordarone) 150 mg in dextrose 100 mL BOLUS 150 mg, Central IV, ONCE, 1 dose, On Thu02/17/24 at 2200, Administer over 10 Minutes, USE 0.22 micron inline filter New Bag 02/17/2024 9:42 PM EST 150 mg 600 mL/hr Amiodarone (Cordarone) 150 mg in dextrose 100 mL BOLUS 150 mg, Central IV, ONCE, 1 dose, On [place] 02/18/24 at 0645, Administer over 10 Minutes, USE 0.22 micron inline filter New Bag 02/18/2024 6:42 AM EST 150 mg 600 mL/hr aspirin chew tab 81 mg 81 mg, Oral, Daily(AM), First dose on Thu02/14/24 at 0900, Until Discontinued Given 02/15/2024 7:47 AM EST 81 mg Given 02/14/2024 8:55 AM EST 81 mg aspirin chew tab 81 mg 81 mg, Oral, Daily(AM), First dose on Thu02/17/24 at 0900, Until Discontinued, Start on POD#1, Post-op Given 02/21/2024 8:33 AM EST 81 mg Given 02/20/2024 8:39 AM EST 81 mg Given 02/19/2024 8:57 AM EST 81 mg atorvaSTATin (Lipitor) tab 40 mg 40 mg, Oral, Daily(AM), First dose on Thu02/14/24 at 0900, Until Discontinued Given 02/21/2024 8:33 AM EST 40 mg Given 02/20/2024 8:39 AM EST 40 mg Given 02/19/2024 8:58 AM EST 40 mg atropine sulfate inj 1 mg 1 mg, IV Push, PRN Other, X1 PRN hemodynamically significant bradydysrythmias and call CT Surgeon reema MALIN, Starting on Thu02/16/24 at 1406, Until Thu02/21/24 at 1538, For 1 dose, Post-op Bisacodyl (Dulcolax) supp 10 mg 10 mg, Rectal, DAILY PRN Constipation, Starting on Thu02/18/24 at 0800, Until Thu02/21/24 at 1538, Post-op Bisacodyl (Dulcolax) supp 10 mg 10 mg, Rectal, ONCE, On Thu02/18/24 at 0830, For 1 dose Given 02/18/2024 8:34 AM EST 10 mg Bisacodyl (Dulcolax) supp 10 mg 10 mg, Rectal, ONCE, On Thu02/19/24 at 0900, For 1 dose Given 02/19/2024 8:58 AM EST 10 mg calcium CHLORide 10 % inj 1 g 1 g, Intravenous, ONCE, On Thu02/16/24 at 1530, For 1 dose Given 02/16/2024 3:16 PM EST 1 g ceFAZolin in dextrose (Ancef) ivpb 2 g 2 g, IV Piggyback, Q8H, 5 doses, First dose on Thu02/16/24 at 2200, Last dose on Thu02/18/24 at 0600, Post-op New Bag 02/18/2024 5:23 AM EST 2 g 100 mL/hr Rate Verify 02/17/2024 9:00 PM EST 4 g/hr 100 mL/hr New Bag 02/17/2024 8:58 PM EST 2 g 100 mL/hr dextrose 50% inj IV Push, PRN Other, Glucose less than 70 mg/dl - see administration instructions for dose, Starting on Thu02/16/24 at 1406, Until Thu02/21/24 at 1538, Glucose less than 70 mg/dl turn off insulin infusion and give D50W by the following formula: (100-blood glucose) x 0.3 to equal the total mL of D50W to be given. Recheck blood glucose in 15 minutes if blood glucose is less than 70 mg/dl give D50W by previous formula., Post-op Docusate Sodium (Colace) cap 100 mg 100 mg, Oral, BID (.AM/PM), First dose on Thu02/17/24 at 0900, Until Discontinued, Hold and administer syrup formulation if not able to take this tab PO., Post-op Given 02/21/2024 8:33 AM EST 100 mg Given 02/20/2024 8:39 AM EST 100 mg Given 02/19/2024 9:00 AM EST 100 mg EPINEPHrine 5000 mcg in NSS 250 ml STANDARD CONCENTRATION *20 mcg/ml* Order Mode: Standard Titration, Starting Rate (mcg/min): 2.5, Clinical Target: MAP 65-70, Infusion Titration Adjustments: Increase or Decrease by up to 2 mcg/min no more frequently than every 2 minutes to achieve specified goal, Maximum Dose: 10 mcg/min for Nurse Titration. Dose titrations 11-50 mcg/min require provider order. If administering vasopressor peripherally, please refer to the Peripheral Vasopressor Guidelines., Patient Transfer: Patient should be transferred to a higher level of care if rate exceeds nursing unit specific guidelines., 0-10 mcg/min (0-30 mL/hr), TITRATE, Starting on Thu02/16/24 at 1715, Until Thu02/17/24 at 0510, Central IV Associate Infusion Pump 02/16/2024 5:03 PM EST 4 mcg/min 12 mL/hr Famotidine (Pepcid) inj 20 mg 20 mg, Intravenous, Q12H, First dose on Thu02/16/24 at 2100, Last dose on Thu02/17/24 at 0900, For 2 doses, Start at first dose interval postop. Give IV push over 2 minutes., Post-op Given 02/17/2024 8:53 AM EST 20 mg Given 02/16/2024 8:54 PM EST 20 mg Famotidine (Pepcid) tab 20 mg 20 mg, Oral, Daily(AM), First dose on [place] 02/18/24 at 0900, Until Discontinued, Post-op Given 02/21/2024 8:3 3 AM EST 20 mg Given 02/20/2024 8:40 AM EST 20 mg Given 02/19/2024 9:00 AM EST 20 mg fentaNYL (PF) inj 50 mcg 50 mcg, IV Push, PRN Pain, Severe, Starting on 02/15/24 at 0913, Until Thu02/15/24 at 1003, For 2 hours, To be administered in [employer] intra-procedure only When given IV Push its recommended that the dose be given over 3 to 5 minutes., Intra-Op Given 02/15/2024 9:03 AM EST 25 mcg Furosemide (Lasix) inj 40 mg 40 mg, IV Push, ONCE, On 02/17/24 at 1330, For 1 dose Given 02/17/2024 1:16 PM EST 40 mg Furosemide (Lasix) inj 40 mg 40 mg, IV Push, ONCE, On [place] 02/18/24 at 0900, For 1 dose Given 02/18/2024 8:35 AM EST 40 mg Furosemide (Lasix) inj 40 mg 40 mg, IV Push, ONCE, On 02/19/24 at 0900, For 1 dose Given 02/19/2024 8:59 AM EST 40 mg Furosemide (Lasix) inj 40 mg 40 mg, IV Push, ONCE, On 02/20/24 at 0630, For 1 dose Given 02/20/2024 6:32 AM EST 40 mg Furosemide (Lasix) inj 40 mg 40 mg, IV Push, ONCE, On 02/21/24 at 0615, For 1 dose Given 02/21/2024 6:28 AM EST 40 mg Furosemide (Lasix) tab 40 mg 40 mg, Oral, Daily(AM), First dose on 02/22/24 at 0900, Until Discontinued Glycopyrrolate (Robinul) inj 0.6 mg 0.6 mg, Intravenous, ONCE PRN Other, Reversal of neuromuscular kelsi, Starting on Tu02/16/24 at 1406, Until Tu02/16/24 at 1805, For 4 hours, Available in [employer]. If still chemically paralyzed after dose has been administered, contact provider for further guidance. WASTE INFO: Return waste medication to pharmacy in zip lock bag - SPC container., Post-op Given 02/16/2024 3:45 PM EST 0.6 mg hEParin 1000 UNIT/ML inj 2,400 Units 2,400 Units (rounded from 2,391 Units = 30 Units/kg 79.7 kg Adjusted weight), IV Push, PRN Other, If most recent aPTT result is less than or equal to 64 seconds, Starting on 02/13/24 at 2023, Until Tu02/16/24 at 0636, Repeat aPTT 6 hours after bolus is administered. Given 02/14/2024 12:58 PM EST 2,400 Un its Given 02/14/2024 4:41 AM EST 2,400 Units hEParin 25,000 units in 250 mL (aPTT-Cardiac) infusion Intravenous, at 0-23.91 mL/hr, Start heparin as soon as baseline labs are drawn. Please select this medication from the infusion pump library! Concentration: 100 units/mL Expires 96 hours after spiking on (date) at (hour) , TITRATE, Starting on Thu02/13/24 at 2100, Until Thu02/16/24 at 0636 Rate Verify 02/16/2024 12:48 AM EST 15 Units/kg/hr 11.96 mL/hr Nurse Change 02/15/2024 6:58 PM EST 15 Units/kg/hr 11.96 m L/hr Restarted 02/15/2024 6:40 PM EST 15 Units/kg/hr 11.96 mL/ hr hEParin inj 5,000 Units 5,000 Units, IV Push, PRN Other, Anticoagulation not at goal, Starting on Thu02/15/24 at 0913, Until Thu02/15/24 at 1003, For 2 hours, To be administered in [employer] intra-procedure., Intra-Op Given 02/15/2024 9:10 AM EST 5,000 Units Given 02/15/2024 9:05 AM EST 5,000 Units hEParin inj 5,000 Units 5,000 Units, Subcutaneous, Q8H, First dose on Thu02/17/24 at 0600, Until Discontinued, Post-op Given 02/21/2024 6:28 AM EST 5,000 Units Abdomen Right Upper Given 02/20/2024 9:57 PM EST 5,000 Units A bdomen Left Lower Given 02/20/2024 2:05 PM EST 5,000 Units Abdomen Right Lower insulin REGULAR human 100 units in NSS 100 mL INFUSION Final Conc = 1 unit / mL Intravenous, at 1 mL/hr, Target Range for Blood Glucose = 100 to 130 mg/dl, CONTINUOUS, Starting on Thu02/16/24 at 1445, Until Thu02/17/24 at 0510, Post-op Rate Verify 02/17/2024 4:03 AM EST 2 Units/hr 2 mL/ hr Rate Verify 02/17/2024 4:00 AM EST 2 Units/hr 2 mL/hr Rate Verify 02/17/2024 3:00 AM EST 2 Units/hr 2 mL/hr Isolyte-S pH 7.4 infusion Intravenous, at 1,000 mL/hr, During 1st 12hrs postop may give Isolyte, 500ml over 30 minutes x 1. If Systolic BP less than 100 and PA diastolic less than 15: may repeat x [address] Surgeon or PA-C if not immediately effective. Plasma-LYTE 148, isolyte-S, and isolyte-S pH 7.4 are considered equivalent - including for MAR barcode scanning., PRN, 2 doses, Starting on Thu02/16/24 at 1406, Until Thu02/16/24 at 1552, Post-op New Bag 02/16/2024 3:52 PM EST 500 mL 1000 mL/hr New Bag 02/16/2024 2:33 PM EST 500 mL 1000 mL/hr losartan (Cozaar) tab 25 mg 25 mg, Oral, Daily(AM), First dose on 02/20/24 at 1645, Until Discontinued Given 02/21/2024 8:33 AM EST 25 mg Given 02/20/2024 4:58 PM EST 25 mg magnesium sulfate 1 g in d5w 100mL LOCKED DOSE 1 g, IV Piggyback, PRN Other, Magnesium replacement, Starting on Thu02/16/24 at 1406, Until 02/21/24 at 1538, For 4 doses, 1. Serum creatinine must be less than 1.5 2. Current urine output must be greater than 30 mL/hr. Magnesium level 1.5 - 2.2: Give 1 gm over 1 hour x 1 dose Magnesium level less than 1.5: Give 1 gm over 1 hour x 2 doses Repeat serum magnesium level 1 hour after completion of 2nd dose, Post-op metoprolol succinate XL (toPROL XL) tab 100 mg 100 mg, Oral, Daily(AM), First dose (after last modification) on Thu02/16/24 at 0545, Until Discontinued, Hold for HR less than 60 or SBP below 100 and notify service if dose is held This med should NOT be Crushed or Chewed. Given 02/16/2024 5:12 AM EST 100 mg metoprolol succinate XL (toPROL XL) tab 100 mg 100 mg, Oral, Daily(AM), First dose on [place] 02/21/24 at 0900, Until Discontinued, Hold for HR less than 60 or SBP below 100 and notify service if dose is held This med should NOT be Crushed or Chewed. Given 02/21/2024 8:32 AM EST 100 mg metoprolol succinate XL (toPROL XL) tab 50 mg 50 mg, Oral, Daily(AM), First dose on [place] 02/14/24 at 0900, Until Discontinued, Hold for HR less than 60 or SBP below 100 and notify service if dose is held This med should NOT be Crushed or Chewed. Given 02/15/2024 7:48 AM EST 50 mg Given 02/14/2024 8:36 AM EST 50 mg metoprolol succinate XL (toPROL XL) tab 50 mg 50 mg, Oral, ONCE, On [facility] 02/15/24 at 1130, For 1 dose, Hold for HR less than 60 or SBP below 100 and notify service if dose is held This med should NOT be Crushed or Chewed. Given 02/15/2024 11:40 AM EST 50 mg Metoprolol Tartrate (Lopressor) tab 12.5 mg 12.5 mg, Oral, Q12H, First dose on [facility] 02/18/24 at 0900, Until Discontinued, Hold for HR less than 60 or SBP below 100 and notify service if dose is held Given 02/18/2024 8:34 AM EST 12.5 mg Metoprolol Tartrate (Lopressor) tab 12.5 mg 12.5 mg, Oral, ONCE, On [facility] 02/18/24 at 1030, For 1 dose, Hold for HR less than 60 or SBP below 100 and notify service if dose is held Given 02/18/2024 10:07 AM EST 12.5 mg Metoprolol Tartrate (Lopressor) tab 25 mg 25 mg, Oral, BID (.AM/PM), First dose (after last modification) on [facility] 02/18/24 at 2100, Until Discontinued, Hold for HR less than 60 or SBP below 100 and notify service if dose is held Given 02/18/2024 8:11 PM EST 25 mg Metoprolol Tartrate (Lopressor) tab 50 mg 50 mg, Oral, BID (.AM/PM), First dose (after last modification) on Thu02/19/24 at 0900, Until Discontinued, Hold for HR less than 60 or SBP below 100 and notify service if dose is held Given 02/20/2024 9:57 PM EST 50 mg Given 02/20/2024 8:40 AM EST 50 mg Given 02/19/2024 9:57 PM EST 50 mg midazolam (Versed) 2 MG/2ML inj 1 mg 1 mg, IV Push, PRN Anxiety, Starting on Thu02/15/24 at 0913, Until Thu02/15/24 at 1003, For 2 hours, To be administered in [employer] intra-procedure only, Intra-Op Given 02/15/2024 9:03 AM EST 1 mg milrinone (PRIMACOR) 40 mg in d5w 200 mL infusion Intravenous, 0.25 mcg/kg/min 96.3 kg (7.2225 mL/hr, rounded to 7.22 mL/hr), Please select this medication from the infusion pump library! Expires 96 hours after spiking on (date) at (hour) , CONTINUOUS, Starting on Thu02/17/24 at 1330, Until Thu02/18/24 at 0830 Rate Verify 02/18/2024 8:00 AM EST 0.25 mcg/kg/min 7.22 mL/hr New Bag 02/17/2024 1:14 PM EST 0.25 mcg/kg/min 7.22 mL/ hr milrinone (PRIMACOR) 40 mg in d5w 200 mL infusion Intravenous, 0.125 mcg/kg/min 96.3 kg (3.6113 mL/hr, rounded to 3.61 mL/hr), Please select this medication from the infusion pump library! Expires 96 hours after spiking on (date) at (hour) , CONTINUOUS, Starting on Thu02/18/24 at 0915, Until Thu02/18/24 at 1313 Rate Verify 02/18/2024 1:00 PM EST 0.125 mcg/kg/min 3.61 mL/hr Rate Verify 02/18/2024 11:00 AM EST 0.125 mcg/kg/min 3.61 mL/hr Rate Verify 02/18/2024 10:00 AM EST 0.125 mcg/kg/min 3.61 mL/hr morphine sulfate inj 1 mg 1 mg, IV Push, Q2H PRN Other, Pain, Moderate; If NPO or unable to take oral medication, Starting on Thu02/16/24 at 1406, Until Thu02/21/24 at 1538, Post-op morphine sulfate inj 2 mg 2 mg, IV Push, Q2H PRN Other, Pain, Severe; If NPO or unable to take oral medication, Starting on Thu02/16/24 at 1406, Until Thu02/21/24 at 1538, Post-op Given 02/17/2024 5:59 AM EST 2 mg multivitamin (Mvi) 1 Tablet 1 Tablet, Oral, DAILY NOON, First dose on Thu02/14/24 at 1200, Until Discontinued Given 02/15/2024 11:40 AM EST 1 T ablet Given 02/14/2024 12:51 PM EST 1 Tablet naloxone (Narcan) 0.4 MG/ML inj 0.08 mg 0.08 mg, IV Push, PRN Other, If patient is oversedated or Respiratory Rate less than 8, Starting on Thu02/16/24 at 1406, Until Thu02/21/24 at 1538, Call provider if patient is oversedated or Respiratory Rate is less than 8, Post-op neostigmine methylsulfate 10 MG/10ML inj 3 mg 3 mg, Intravenous, ONCE PRN Other, Reversal of neuromuscular kelsi, Starting on Thu02/16/24 at 1406, Until Thu02/16/24 at 1805, For 4 hours, Available in [employer]. If still chemically paralyzed after dose has been administered, contact provider for further guidance., Post-op Given 02/16/2024 3:46 PM EST 3 mg NORepinephrine (Levophed) 4 mg in 250 ml D5W STANDARD CONCENTRATION 16 mcg/ml Order Mode: Custom Provider Titration Order, Starting Rate (mcg/min): 2, Clinical Target: Custom MAP, Custom SBP, Custom Target MAP Range: Greater than 65, Custom Target SBP Range (mmHG): Less than 120, Increase or Decrease Infusion by up to (mcg/min): 1 mcg/min, Titrate no more frequently than (mins): Every 5 seconds, Maximum Dose (mcg/min): 10, Patient Transfer: Patient should be transferred to a higher level of care if rate exceeds nursing unit specific guidelines., 0-10 mcg/min (0-37.5 mL/hr), If you have reached the max rate, call for the on-call CVTS MILA, TITRATE, Starting on Thu02/16/24 at 1445, Until Thu02/16/24 at 1922, Central IV, Post-op Rate Change 02/16/2024 7:43 PM EST 2 mcg/min 7.5 mL/hr Rate Change 02/16/2024 4:54 PM EST 1 mcg/min 3.75 mL/hr Rate Change 02/16/2024 4:53 PM EST 3 mcg/min 11.25 mL/hr NORepinephrine (Levophed) 4 mg in 250 ml D5W STANDARD CONCENTRATION 16 mcg/ml Order Mode: Standard Titration, Starting Rate (mcg/min): 2, Clinical Target: MAP 65-70, Infusion Titration Adjustments: Increase or Decrease by up to 5 mcg/min no more frequently than every 2 minutes to achieve specified goal, Maximum Dose: 30 mcg/min for nurse titration. Dose titrations 31-90 mcg/min require provider order. If administering vasopressor peripherally, please refer to the Peripheral Vasopressor Guidelines., Patient Transfer: Patient should be transferred to a higher level of care if rate exceeds nursing unit specific guidelines., 0-30 mcg/min (0-112.5 mL/hr), TITRATE, Starting on Thu02/16/24 at 2015, Until Thu02/17/24 at 0510, Central IV Rate Change 02/17/2024 1:36 AM EST 1 mcg/min 3.75 mL/hr Rate Verify 02/17/2024 1:00 AM EST 2 mcg/min 7.5 mL/hr Rate Change 02/17/2024 12:20 AM EST 2 mcg/min 7.5 mL/hr ondansetron (Zofran) inj 4 mg 4 mg, IV Push, Q6H PRN Other, May use for nausea or vomiting if patient unable to take oral ondansetron, Starting on Thu02/16/24 at 1406, Until Thu02/21/24 at 1538, Post-op ondansetron ODT (Zofran) tab 4 mg 4 mg, On Tongue, Q6H PRN Nausea, Vomiting, Starting on Thu02/16/24 at 1406, Until 02/21/24 at 1538, Post-op Oral Hygiene: Mouth Swab with dentifrice Oral, Q4H LIMITED (00;04;12;16), First dose on Thu02/16/24 at 1600, Until Discontinued, To be used with 1.5% hydrogen peroxide solution or 0.05% cetylpyridium chloride oral rinse, Post-op Given 02/17/2024 4:00 AM EST Given 02/17/2024 12:00 AM EST Given 02/16/2024 4:00 PM EST oxyCODONE (Oxy IR) tab 5 mg 5 mg, Oral, Q4H PRN Pain, Severe, Starting on Thu02/16/24 at 1406, Until 02/21/24 at 1538, Post-op Given 02/17/2024 3:59 PM EST 5 mg Given 02/17/2024 11:28 AM EST 5 mg Given 02/17/2024 6:52 AM EST 5 mg oxygen GAS Inhalation, OXYGEN, First dose on Thu02/16/24 at 1600, Until Discontinued, Device/Managed by: NIV or Ventilator Device, Goal SPO2 (%): 94 or greater, Notify Provider: For sudden DECREASE in resting SPO2 to less than 85% and when escalating delivery device., Initial FiO2 (%): 100, Titration Interval: Q2 minutes and as needed., If PO2 is greater than 300, decrease to 50% FiO2. If PO2 is 200-300, decrease to 60% FiO2. If PO2 is 150-200, decrease to 70% FiO2. If PO2 is 100-150, decrease to 80% FiO2. Always maintain saturations 95% or greater Changes can also be made by Resp Therapy per Vent Weaning Protocol Oxygen On 02/16/2024 4: 00 PM EST oxygen GAS Inhalation, OXYGEN, First dose on Thu02/16/24 at 1600, Until Discontinued, Device/Managed by: Low Flow Device, Goal SPO2 (%): 91-95, Starting Device: Nasal Cannula, Initial Flow Rate (LPM): 2. Apply post extubation., Lowest Support: Nasal Cannula: Flow 0-6 LPM. Titrate up/down by 1 LPM., Titration Interval: Q2 minutes and as needed., Notify Provider: For sudden DECREASE in resting SPO2 to less than 85% and when escalating delivery device., Wean patient off Oxygen when the oxygen saturation is greater than or equal to 93% Oxygen On 02/21/2024 8:00 AM EST Oxygen On 02/18/2024 4:00 PM EST 2 L/min(Oxygen) Oxygen On 02/18/2024 8:00 AM EST 3 L/min(Oxygen) potassium chloride 20 mEq in 50 mL ivpb LOCKED DOSE 20 mEq, Central IV, PRN, Starting on Thu02/16/24 at 1406, Until 02/21/24 at 1405, Other, Potassium repletion, Administer over 60 Minutes, Patients MUST meet ALL the following criteria. IF ANY criteria are not met, Do Not Administer, and call covering provider for orders 1. Serum creatinine must be less than 1.5 2. Current urine output must be greater than 30 mL/hr. Potassium repletion based on level 4.0 - 4.2: infuse 20mEq/50mL over one hour x 1 dose 3.5 - 3.9: infuse 20mEq/50mL over one hour x 2 doses 3.0 - 3.4: infuse 20mEq/50mL over one hour x 3 doses If Potassium less than 3.0, Begin 20mEq/50mL over 30 minutes x 1 dose and Immediately call covering provider for orders., Post-op Rate Verify 02/16/2024 9:00 PM EST 20 mEq/hr 50 mL/hr New Bag 02/16/2024 8:53 PM EST 20 mEq 50 mL/hr potassium chloride ER tab 20 mEq 20 mEq, Oral, ONCE, On 02/14/24 at 0900, For 1 dose, This med should NOT be Crushed or Chewed Given 02/14/2024 8:36 AM EST 20 mEq potassium chloride ER tab 20 mEq 20 mEq, Oral, PRN Other, Potassium repletion, Starting on Thu02/16/24 at 1406, Until 02/21/24 at 1538, Patients MUST meet ALL the following criteria. IF ANY criteria are not met, Do Not Administer, and call covering provider for orders 1. Serum creatinine must be less than 1.5 2. Current urine output must be greater than 30 mL/hr. 3. Patient is taking medications by mouth (PO). Potassium repletion based on level 4.0 - 4.2, Give 20mEq x 1 dose 3.5 - 3.9, Give 20mEq every 2 hours x 2 doses 3.0 - 3.4, Give 20mEq every 2 hours x 3 doses If potassium is less than 3.0, Give 20mEq x1 dose and immediately call the covering provider for orders. 4. BMP result must be no older than 24 hours., Post-op potassium chloride ER tab 20 mEq 20 mEq, Oral, ONCE, On Thu02/17/24 at 1330, For 1 dose, This med should NOT be Crushed or Chewed Given 02/17/2024 1:15 PM EST 20 mEq potassium chloride ER tab 20 mEq 20 mEq, Oral, ONCE, On [place] 02/18/24 at 0900, For 1 dose, This med should NOT be Crushed or Chewed Given 02/18/2024 8:35 AM EST 20 mEq potassium chloride ER tab 20 mEq 20 mEq, Oral, ONCE, On 02/20/24 at 0630, For 1 dose, This med should NOT be Crushed or Chewed Given 02/20/2024 6:33 AM EST 20 mEq potassium chloride ER tab 20 mEq 20 mEq, Oral, ONCE, On 02/21/24 at 0615, For 1 dose, This med should NOT be Crushed or Chewed Given 02/21/2024 6:28 AM EST 20 mEq potassium chloride ER tab 20 mEq 20 mEq, Oral, Daily(AM), First dose on 02/22/24 at 0900, Until Discontinued, This med should NOT be Crushed or Chewed prednisoLONE Acetate (Pred Forte) 1 % ophthalmic suspension 1 Drop 1 Drop, Both eyes, Daily(AM), First dose on 02/14/24 at 0900, Until Discontinued Given 02/21/2024 8:[address] op Given 02/20/2024 8:40 AM EST 1 Drop Given 02/19/2024 8:59 AM EST 1 Drop vitamins plus 1 mg folic acid tab 1 Tablet 1 Tablet, Oral, DAILY NOON, First dose on Thu02/17/24 at 1200, Until Discontinued, Post-op Given 02/20/2024 12:01 PM EST 1 Tablet Given 02/19/2024 12:00 PM EST 1 Tablet Given 02/18/2024 11:32 AM EST 1 Tablet Propofol 10 mg/mL (1%) infusion Order Mode: Standard Titration, Starting Rate (mcg/kg/min): 5, Infusion Titration Adjustments: Increase or decrease by up to 10 mcg/kg/min no more frequently than every 5 minutes to maintain specified goal RASS, Maximum Dose: 50 mcg/kg/min for nurse titration. Dose titrations 51-80 mcg/kg/min require provider order., Notes to Nursing: Reorient the patient, assess and treat pain separately. Abort acute agitation by seeking provider assistance., 0-50 mcg/kg/min 95.8 kg (0-28.74 mL/hr), Wean to off when patient meets criteria outlined in the Cardiac Surgery Ventilator Weaning Protocol. Sedation Vacation Daily., TITRATE, Starting on Thu02/16/24 at 1445, Until Thu02/16/24 at 1922, Intravenous, Post-op Rate Change 02/16/2024 4:12 PM EST 10 mcg/kg/min 5.74 mL/hr Rate Change 02/16/2024 4:02 PM EST 20 mcg/kg/min 11.49 mL/ hr Rate Verify 02/16/2024 4:00 PM EST 30 mcg/kg/min 17.24 mL/ hr Saline ([place]) nasal spray 2 [place], Nasal, PRN Irritation, Starting on Thu02/19/24 at 1331, Until Thu02/21/24 at 1538 senna (Senokot) 1 Tablet 1 Tablet, Oral, BID (.AM/PM), First dose on Thu02/17/24 at 0900, Until Discontinued, Hold if patient develops diarrhea or has greater than 2 BMs in any one day., Post-op Given 02/21/2024 8:33 AM EST 1 Tablet Given 02/19/2024 8:57 AM EST 1 Tablet Given 02/18/2024 8:11 PM EST 1 Tablet sodium chloride 0.9 % flush central line 10 mL 10 mL, IV Push, Q8H, First dose on Thu02/16/24 at 1445, Until Discontinued, Capped Central Line Ports, Post-op Given 02/19/2024 6:00 AM EST 10 mL Given 02/18/2024 10:00 PM EST 10 mL Given 02/18/2024 2:00 PM EST 10 mL sodium chloride 0.9 % flush peripheral melvin 3 mL 3 mL, IV Push, Q8H, First dose on Thu02/16/24 at 1445, Until Discontinued, Do not flush if lock, PICC, or central line not in place; IV infusing or unable to flush., Post-op Given 02/21/2024 6:00 AM EST 3 mL Given 02/20/2024 10:00 PM EST 3 mL Given 02/20/2024 2:00 PM EST 3 mL traMADol (Ultram) tab 25 mg 25 mg, Oral, Q6H PRN Pain, Moderate, Starting on Thu02/17/24 at 0600, Until 02/21/24 at 1538, Post-op Given 02/17/2024 1:41 PM EST 25 mg traMADol (Ultram) tab 25 mg 25 mg, Oral, Q6H, First dose on Thu02/17/24 at 0600, Last dose on Thu02/18/24 at 0000, For 4 doses, Post-op Given 02/17/2024 11:59 PM EST 25 mg Given 02/17/2024 5:08 PM EST 25 mg Given 02/17/2024 11:28 AM EST 25 mg warfarin check daily dose (PHARMACIST MANAGED) [id number], First dose on Thu02/18/24 at 1500, Until Discontinued, Routine, Contact the pharmacy if there is not a warfarin dose entered by 1500 and document with whom it was discussed. Warfarin Sodium (Coumadin) tab 2.5 mg 2.5 mg, Oral, QPM-1999, First dose on Thu02/18/24 at 1999, Last dose on Thu02/18/24 at 1999, For 1 day, WASTE INFO: Return packaging and waste medication in zip lock bag to pharmacy - [facility] container. Given 02/18/2024 8:11 PM EST 2.5 mg Warfarin Sodium (Coumadin) tab 2.5 mg 2.5 mg, Oral, QPM-1999, First dose on Thu02/19/24 at 1999, Last dose on Thu02/19/24 at 1999, For 1 day, WASTE INFO: Return packaging and waste medication in zip lock bag to pharmacy - [facility] container. Given 02/19/2024 9:57 PM EST 2.5 mg Warfarin Sodium (Coumadin) tab 5 mg 5 mg, Oral, QPM-1999, First dose on 02/20/24 at 1999, Last dose on 02/20/24 at 1999, For 1 day, WASTE INFO: Return packaging and waste medication in zip lock bag to pharmacy - [facility] container. Given 02/20/2024 9:57 PM EST 5 mg Warfarin Sodium (Coumadin) tab 5 mg 5 mg, Oral, QPM-1999, First dose on 02/21/24 at 1999, Last dose on Thu02/21/24 at 1999, For 1 day, WASTE INFO: Return packaging and waste medication in zip lock bag to pharmacy - [facility] container. documented in this encounter Active and Recently Administered Medications Times are shown in EST. Scheduled Medication Order 02/19/2024 02/20/2024 02/21/2024 Acetaminophen (Tylenol) tab 975 mg 975 mg, Oral, Q8H, First dose on Thu02/16/24 at 1445, Last dose on Thu02/21/24 at 0600, For 5 days, Avoid in patients with severe hepatic impairment or severe active liver disease. Use for 5 days, Post-op 0601 (Given - Provider: Zoraida Villalobos RN)1353 (Given - Provider: Rakel Hoffman RN)2157 (Given - Provider: Yamil Baig, CHANO) 0632 (Given - Provider: Yamil Baig, RN)1405 (Given - Provider: Tati Woodruff, CHANO)2157 (Given - Provider: Yamil Baig, CHANO) 0628 (Given - Provider: Yamil Baig, CHANO) Allopurinol (Zyloprim) tab 300 mg 300 mg, Oral, Daily(AM), First dose on Thu02/14/24 at 0900, Until Discontinued 0900 (Given - Provider: Tremaine Henson RN) 0839 (Given - Provider: Tati Woodruff RN) 0833 (Given - Provider: Idalmis Lopez, CHANO) aspirin chew tab 81 mg 81 mg, Oral, Daily(AM), First dose on Thu02/17/24 at 0900, Until Discontinued, Start on POD#1, Post-op 0857 (Given - Provider: Trmeaine Henson RN) 0839 (Given - Provider: Tati Woodruff RN) 0833 (Given - Provider: Idalmis Lopez, CHANO) atorvaSTATin (Lipitor) tab 40 mg 40 mg, Oral, Daily(AM), First dose on Thu02/14/24 at 0900, Until Discontinued 0858 (Given - Provider: Tremaine Henson RN) 0839 (Given - Provider: Tati Woodruff RN) 0833 (Given - Provider: Idalmis Lopez, CHANO) Bisacodyl (Dulcolax) supp 10 mg (COMPLETED) 10 mg, Rectal, ONCE, On Thu02/19/24 at 0900, For 1 dose 0858 (Given - Provider: Tremaine Henson RN) Docusate Sodium (Colace) cap 100 mg(Linked Group 1) 100 mg, Oral, BID (.AM/PM), First dose on Thu02/17/24 at 0900, Until Discontinued, Hold and administer syrup formulation if not able to take this tab PO., Post-op 0900 (Given - Provider: Tremaine Henson RN)2100 (Not Given - Provider: Yamil Baig RN - Reason: Parameter(s) Not Met - Comment: Patient with diarrhea) 0839 (Given - Provider: Tati Woodruff RN)2100 (Not Given - Provider: Yamil Baig RN - Reason: Parameter(s) Not Met) 0833 (Given - Provider: Idalmis Lopez, CHANO) Famotidine (Pepcid) tab 20 mg(Linked Group 2) 20 mg, Oral, Daily(AM), First dose on Thu02/18/24 at 0900, Until Discontinued, Post-op 0900 (Given - Provider: Tremaine Henson RN) 0840 (Given - Provider: Tati Woodruff RN) 0833 (Given - Provider: Idalmis Lopez, CHANO) Furosemide (Lasix) inj 40 mg (COMPLETED) 40 mg, IV Push, ONCE, On Thu02/19/24 at 0900, For 1 dose 0859 (Given - Provider: Tremaine Henson RN) Furosemide (Lasix) inj 40 mg (COMPLETED) 40 mg, IV Push, ONCE, On 02/20/24 at 0630, For 1 dose 0632 (Given - Provider: Yamil Baig, CHANO) Furosemide (Lasix) inj 40 mg (COMPLETED) 40 mg, IV Push, ONCE, On 02/21/24 at 0615, For 1 dose 0628 (Given - Provider: Yamil Baig, CHANO) Furosemide (Lasix) tab 40 mg 40 mg, Oral, Daily(AM), First dose on Thu02/22/24 at 0900, Until Discontinued hEParin inj 5,000 Units 5,000 Units, Subcutaneous, Q8H, First dose on Thu02/17/24 at 0600, Until Discontinued, Post-op 0601 (Given - Provider: Zoraida Villalobos RN)1354 (Given - Provider: Rakel Hoffman RN)2158 (Given - Provider: Yamil Baig, CHANO) 0633 (Given - Provider: Yamil Baig, RN)1405 (Given - Provider: Tati Woodruff RN)2157 (Given - Provider: Yamil Baig, CHANO) 0628 (Given - Provider: Yamil Baig, CHANO) losartan (Cozaar) tab 25 mg 25 mg, Oral, Daily(AM), First dose on 02/20/24 at 1645, Until Discontinued 1658 (Given - Provider: Tati Woodruff RN) 0833 (Given - Provider: Idalmis Lopez, CHANO) metoprolol succinate XL (toPROL XL) tab 100 mg 100 mg, Oral, Daily(AM), First dose on 02/21/24 at 0900, Until Discontinued, Hold for HR less than 60 or SBP below 100 and notify service if dose is held This med should NOT be Crushed or Chewed. 0832 (Given - Provider: Idalmis Lopez, CHANO) Metoprolol Tartrate (Lopressor) tab 50 mg (CANCELED) 50 mg, Oral, BID (.AM/PM), First dose (after last modification) on Thu02/19/24 at 0900, Until Discontinued, Hold for HR less than 60 or SBP below 100 and notify service if dose is held 0857 (Given - Provider: Tremaine Henson RN)215 (Given - Provider: Yamil Baig RN) 0840 (Given - Provider: Tati Woodruff RN)2157 (Given - Provider: Yamil Baig RN) oxygen GAS Inhalation, OXYGEN, First dose on Thu02/16/24 at 1600, Until Discontinued, Device/Managed by: Low Flow Device, Goal SPO2 (%): 91-95, Starting Device: Nasal Cannula, Initial Flow Rate (LPM): 2. Apply post extubation., Lowest Support: Nasal Cannula: Flow 0-6 LPM. Titrate up/down by 1 LPM., Titration Interval: Q2 minutes and as needed., Notify Provider: For sudden DECREASE in resting SPO2 to less than 85% and when escalating delivery device., Wean patient off Oxygen when the oxygen saturation is greater than or equal to 93% 0000 (Oxygen Off - Provider: Zoraida Villalobos RN)0800 (Oxygen Off - Provider: Ana Whyte RN)1600 (Oxygen Off - Provider: Arti Ruano RN) 0000 (Oxygen Off - Provider: Yamil Baig RN)0840 (Oxygen Off - Provider: Tati Woodruff RN)1600 (Oxygen Off - Provider: Tati Woodruff RN) 0000 (Oxygen Off - Provider: Yamil Baig, CHANO)0800 (Oxygen On - Provider: Idalmis Lopez RN) potassium chloride ER tab 20 mEq (COMPLETED) 20 mEq, Oral, ONCE, On 02/20/24 at 0630, For 1 dose, This med should NOT be Crushed or Chewed 0633 (Given - Provider: Yamil Baig RN) potassium chloride ER tab 20 mEq (COMPLETED) 20 mEq, Oral, ONCE, On 02/21/24 at 0615, For 1 dose, This med should NOT be Crushed or Chewed 0628 (Given - Provider: Yamil Baig, CHANO) potassium chloride ER tab 20 mEq 20 mEq, Oral, Daily(AM), First dose on Thu02/22/24 at 0900, Until Discontinued, This med should NOT be Crushed or Chewed prednisoLONE Acetate (Pred Forte) 1 % ophthalmic suspension 1 Drop 1 Drop, Both eyes, Daily(AM), First dose on Thu02/14/24 at 0900, Until Discontinued 0859 (Given - Provider: Tremaine Henson RN) 0840 (Given - Provider: Tati Woodruff RN) 0834 (Given - Provider: Idalmis Lopez, CHANO) vitamins plus 1 mg folic acid tab 1 Tablet 1 Tablet, Oral, DAILY NOON, First dose on Thu02/17/24 at 1200, Until Discontinued, Post-op 1200 (Given - Provider: Rakel Hoffman RN) 1201 (Given - Provider: Tati Woodruff RN) senna (Senokot) 1 Tablet(Linked Group 3) 1 Tablet, Oral, BID (.AM/PM), First dose on Thu02/17/24 at 0900, Until Discontinued, Hold if patient develops diarrhea or has greater than 2 BMs in any one day., Post-op 0857 (Given - Provider: Tremaine Henson RN)2100 (Not Given - Provider: Yamil Baig RN - Reason: Parameter(s) Not Met - Comment: Patient with diarrhea) 0839 (Not Given - Provider: Tati Woodruff RN - Reason: Parameter(s) Not Met)2100 (Not Given - Provider: Yamil Baig RN - Reason: Parameter(s) Not Met) 0833 (Given - Provider: Idalmis Lopez, CHANO) sodium chloride 0.9 % flush central line 10 mL 10 mL, IV Push, Q8H, First dose on Thu02/16/24 at 1445, Until Discontinued, Capped Central Line Ports, Post-op 0600 (Given - Provider: Zoraida Villalobos RN)1220 (Not Given - Provider: Rakel Hoffman RN - Reason: Parameter(s) Not Met)2200 (No Insulin - Provider: Yamil Baig RN - Reason: Parameter(s) Not Met) 0600 (Not Given - Provider: Yamil Baig RN - Reason: Parameter(s) Not Met)1400 (Not Given - Provider: Tati Woodruff RN - Reason: Parameter(s) Not Met)2200 (Not Given - Provider: Yamil Baig RN - Reason: Parameter(s) Not Met) 0600 (Not Given - Provider: Yamil Baig RN - Reason: Parameter(s) Not Met) sodium chloride 0.9 % flush peripheral melvin 3 mL 3 mL, IV Push, Q8H, First dose on Thu02/16/24 at 1445, Until Discontinued, Do not flush if lock, PICC, or central line not in place; IV infusing or unable to flush., Post-op 0600 (Given - Provider: Zoraida Villalobos RN)1220 (Given - Provider: Rakel Hoffman, RN)2200 (Given - Provider: Yamil Baig, RN) 0600 (Given - Provider: Yamil Baig, RN)1400 (Given - Provider: Tati Woodruff, CHANO)2200 (Given - Provider: Yamil Baig, RN) 0600 (Given - Provider: Yamil Baig, CHANO) warfarin check daily dose (PHARMACIST MANAGED) [id number], First dose on [place]ley 02/18/24 at 1500, Until Discontinued, Routine, Contact the pharmacy if there is not a warfarin dose entered by 1500 and document with whom it was discussed. 1500 (Order Check Addressed - Provider: Rakel Hoffman RN) 1500 (Order Check Addressed - Provider: Tati Woodruff RN) Warfarin Sodium (Coumadin) tab 2.5 mg (COMPLETED) 2.5 mg, Oral, QPM-1999, First dose on Thu02/19/24 at 1999, Last dose on Thu02/19/24 at 1999, For 1 day, WASTE INFO: Return packaging and waste medication in zip lock bag to pharmacy - [facility] container. 2156 (Given - Provider: Yamil Baig RN) Warfarin Sodium (Coumadin) tab 5 mg (COMPLETED) 5 mg, Oral, QPM-1999, First dose on 02/20/24 at 1999, Last dose on 02/20/24 at 1999, For 1 day, WASTE INFO: Return packaging and waste medication in zip lock bag to pharmacy - [facility] container. 2156 (Given - Provider: Yamil Baig, CHANO) Warfarin Sodium (Coumadin) tab 5 mg 5 mg, Oral, QPM-1999, First dose on 02/21/24 at 1999, Last dose on 02/21/24 at 1999, For 1 day, WASTE INFO: Return packaging and waste medication in zip lock bag to pharmacy - [facility] container. PRN Medication Order 02/19/2024 02/20/2024 02/21/2024 Acetaminophen (Tylenol) tab 975 mg 975 mg, Oral, Q6H PRN Pain, Mild, Starting on Thu02/21/24 at 0000, Until Thu02/21/24 at 1538, Begin after around the clock acetaminophen order discontinued (S+5). Maximum 4 g acetaminophen/day. Avoid in patients with severe hepatic impairment or severe active liver disease., Post-op atropine sulfate inj 1 mg 1 mg, IV Push, PRN Other, X1 PRN hemodynamically significant bradydysrythmias and call CT Surgeon reema MALIN, Starting on Thu02/16/24 at 1406, Until Thu02/21/24 at 1538, For 1 dose, Post-op Bisacodyl (Dulcolax) supp 10 mg 10 mg, Rectal, DAILY PRN Constipation, Starting on [place] 02/18/24 at 0800, Until Thu02/21/24 at 1538, Post-op dextrose 50% inj IV Push, PRN Other, Glucose less than 70 mg/dl - see administration instructions for dose, Starting on Thu02/16/24 at 1406, Until Thu02/21/24 at 1538, Glucose less than 70 mg/dl turn off insulin infusion and give D50W by the following formula: (100-blood glucose) x 0.3 to equal the total mL of D50W to be given. Recheck blood glucose in 15 minutes if blood glucose is less than 70 mg/dl give D50W by previous formula., Post-op magnesium sulfate 1 g in d5w 100mL LOCKED DOSE 1 g, IV Piggyback, PRN Other, Magnesium replacement, Starting on Thu02/16/24 at 1406, Until Thu02/21/24 at 1538, For 4 doses, 1. Serum creatinine must be less than 1.5 2. Current urine output must be greater than 30 mL/hr. Magnesium level 1.5 - 2.2: Give 1 gm over 1 hour x 1 dose Magnesium level less than 1.5: Give 1 gm over 1 hour x 2 doses Repeat serum magnesium level 1 hour after completion of 2nd dose, Post-op morphine sulfate inj 1 mg 1 mg, IV Push, Q2H PRN Other, Pain, Moderate; If NPO or unable to take oral medication, Starting on Thu02/16/24 at 1406, Until Thu02/21/24 at 1538, Post-op morphine sulfate inj 2 mg 2 mg, IV Push, Q2H PRN Other, Pain, Severe; If NPO or unable to take oral medication, Starting on Thu02/16/24 at 1406, Until Thu02/21/24 at 1538, Post-op naloxone (Narcan) 0.4 MG/ML inj 0.08 mg 0.08 mg, IV Push, PRN Other, If patient is oversedated or Respiratory Rate less than 8, Starting on Thu02/16/24 at 1406, Until Thu02/21/24 at 1538, Call provider if patient is oversedated or Respiratory Rate is less than 8, Post-op ondansetron (Zofran) inj 4 mg(Linked Group 4) 4 mg, IV Push, Q6H PRN Other, May use for nausea or vomiting if patient unable to take oral ondansetron, Starting on Thu02/16/24 at 1406, Until Thu02/21/24 at 1538, Post-op ondansetron ODT (Zofran) tab 4 mg(Linked Group 4) 4 mg, On Tongue, Q6H PRN Nausea, Vomiting, Starting on Thu02/16/24 at 1406, Until Thu02/21/24 at 1538, Post-op oxyCODONE (Oxy IR) tab 5 mg 5 mg, Oral, Q4H PRN Pain, Severe, Starting on Thu02/16/24 at 1406, Until Thu02/21/24 at 1538, Post-op potassium chloride 20 mEq in 50 mL ivpb LOCKED DOSE 20 mEq, Central IV, PRN, Starting on Thu02/16/24 at 1406, Until Thu02/21/24 at 1405, Other, Potassium repletion, Administer over 60 Minutes, Patients MUST meet ALL the following criteria. IF ANY criteria are not met, Do Not Administer, and call covering provider for orders 1. Serum creatinine must be less than 1.5 2. Current urine output must be greater than 30 mL/hr. Potassium repletion based on level 4.0 - 4.2: infuse 20mEq/50mL over one hour x 1 dose 3.5 - 3.9: infuse 20mEq/50mL over one hour x 2 doses 3.0 - 3.4: infuse 20mEq/50mL over one hour x 3 doses If Potassium less than 3.0, Begin 20mEq/50mL over 30 minutes x 1 dose and Immediately call covering provider for orders., Post-op potassium chloride ER tab 20 mEq 20 mEq, Oral, PRN Other, Potassium repletion, Starting on Thu02/16/24 at 1406, Until Thu02/21/24 at 1538, Patients MUST meet ALL the following criteria. IF ANY criteria are not met, Do Not Administer, and call covering provider for orders 1. Serum creatinine must be less than 1.5 2. Current urine output must be greater than 30 mL/hr. 3. Patient is taking medications by mouth (PO). Potassium repletion based on level 4.0 - 4.2, Give 20mEq x 1 dose 3.5 - 3.9, Give 20mEq every 2 hours x 2 doses 3.0 - 3.4, Give 20mEq every 2 hours x 3 doses If potassium is less than 3.0, Give 20mEq x1 dose and immediately call the covering provider for orders. 4. BMP result must be no older than 24 hours., Post-op Saline ([place]) nasal spray 2 [place], Nasal, PRN Irritation, Starting on Thu02/19/24 at 1331, Until Thu02/21/24 at 1538 traMADol (Ultram) tab 25 mg 25 mg, Oral, Q6H PRN Pain, Moderate, Starting on Thu02/17/24 at 0600, Until Thu02/21/24 at 1538, Post-op Linked Groups Order Group 1: Docusate Sodium (Colace) cap 100 mgJump to med 100 mg, Oral, BID (.AM/PM), First dose on Thu02/17/24 at 0900, Until Discontinued, Hold and administer syrup formulation if not able to take this tab PO., Post-op Or Docusate Sodium (Colace) oral liquid 100 mg (CANCELED) 100 mg, NG Tube, BID (.AM/PM), First dose on Thu02/17/24 at 0900, Until Discontinued, Post-op Group 2: Famotidine (Pepcid) inj 20 mg (COMPLETED) 20 mg, Intravenous, Q12H, First dose on Thu02/16/24 at 2100, Last dose on Thu02/17/24 at 0900, For 2 doses, Start at first dose interval postop. Give IV push over 2 minutes., Post-op Followed by Famotidine (Pepcid) tab 20 mgJump to med 20 mg, Oral, Daily(AM), First dose on [place] 02/18/24 at 0900, Until Discontinued, Post-op Group 3: senna (Senokot) 1 TabletJump to med 1 Tablet, Oral, BID (.AM/PM), First dose on Thu02/17/24 at 0900, Until Discontinued, Hold if patient develops diarrhea or has greater than 2 BMs in any one day., Post-op Or senna (Senokot) 1 Tablet (CANCELED) 1 Tablet, NG Tube, BID (.AM/PM), First dose on Thu02/17/24 at 0900, Until Discontinued, Hold if patient develops diarrhea or has greater than 2 bm's in any one day., Post-op Group 4: ondansetron ODT (Zofran) tab 4 mgJump to med 4 mg, On Tongue, Q6H PRN Nausea, Vomiting, Starting on 02/16/24 at 1406, Until 02/21/24 at 1538, Post-op Or ondansetron (Zofran) inj 4 mgJump to med 4 mg, IV Push, Q6H PRN Other, May use for nausea or vomiting if patient unable to take oral ondansetron, Starting on 02/16/24 at 1406, Until 02/21/24 at 1538, Post-op documented in this encounter Advance Directives * [...] Advance Directives occurred with: Patient Care Teams [employer] Super[employer] Relationship Specialty Start Date End Date Rashawn Obrien MD [address] [place] [id number] PCP - General 05/26/07 documented as of this encounter
--- OUTSIDE RECORDS SUMMARY | 2024-05-23 05:40 | External Medical Summary ---
Author Name Unknown Address Unknown Organization [id number]:[place] [facility] [place] [address] [place] [address] Laboratory Report Ordering Provider Test Date Status ADY WEST 02/20/2024 04:40:00 Final Warfarin Therapy
INR: 2 .0-3.0 conventional anticoagulation
INR: 2.5- 3.5 high intensity anticoagulation Observation Date Value Abnormality Reference (Units ) Status PT 02/20/2024 04:40:00 17.4 Above high normal 11 .6-15.2 (seconds) Final INR 02/20/2024 04:40:00 1.4 Above high normal 0. 8-1.2 Final Performing Location [facility] [place] [address] [place] [id number]
--- OUTSIDE RECORDS SUMMARY | 2024-05-23 05:40 | External Medical Summary ---
Author Name Unknown Address Unknown Organization [id number]:LABORATORY [facility] – [place] - [address] [place] [address] Laboratory Report Ordering Provider Test Date Status ADY WEST 02/21/2024 04:39:00 Final Warfarin Therapy
INR: 2 .0-3.0 conventional anticoagulation
INR: 2.5- 3.5 high intensity anticoagulation Observation Date Value Abnormality Reference (Units ) Status PT 02/21/2024 04:39:00 18.1 Above high normal 11 .6-15.2 (seconds) Final INR 02/21/2024 04:39:00 1.5 Above high normal 0. 8-1.2 Final Performing Location LABORATORY [facility] [place] - [address] [place] [address]
--- OUTSIDE RECORDS SUMMARY | 2024-05-23 05:40 | External Medical Summary ---
Author Name Unknown Address Unknown Organization [id number]:LABORATORY [facility] – [place] - [address] [facility] [address] Laboratory Report Ordering Provider Test Date Status GUSTAVO ESCOTO 02/20/2024 04:40:00 Final Observation Date Value Abnormality Reference (Units ) Status SYNC LEUKOCYTES IN BLOOD BY AUTOMATED COUNT 02/20/2024 04:40:00 15.61 Above high normal 4.00-10.80 (K/uL) Final Segs 02/20/2024 04:40:00 70.4 40.0-75.0 (%) Final Lymphs % 02/20/2024 04:40:00 12.2 Below low normal 18.0-42.0 (%) Final Monos 02/20/2024 04:40:00 14.3 Above high normal 1.0-11.0 (%) Final Eosinophils 02/20/2024 04:40:00 0.7 0.0-6.0 (%) Final Basos 02/20/2024 04:40:00 0.4 0.0-2.0 (%) Final Immature Granulocyte, Percent 02/20/2024 04:40:00 2.0 0.0-2.0 (%) Final Absolute Segs 02/20/2024 04:40:00 10.97 Above high normal 1.80-7.70 (K/uL) Final Lymphs, absolute 02/20/2024 04:40:00 1.91 1.00-4.80 (K/ul) Final Monos, Abs 02/20/2024 04:40:00 2.24 Above high normal 0.00-1.10 (K/uL) Final Eos, Abs 02/20/2024 04:40:00 0.11 0.00-0.70 (K/uL) Final Basos, Abs 02/20/2024 04:40:00 0.06 0.00-0.20 (K/uL) Final Immature Granulocytes, Number 02/20/2024 04:40:00 0.32 Above high normal 0.00-0.20 (K/uL) Final Performing Location LABORATORY [facility] – [place] - [address] [facility] [id number]
--- OUTSIDE RECORDS SUMMARY | 2024-05-23 05:40 | External Medical Summary ---
Author Name Unknown Address Unknown Organization [id number]:LABORATORY [facility] – [place] - [facility] [address] [place] [address] Laboratory Report Ordering Provider Test Date Status GUSTAVO ESCOTO 02/21/2024 04:39:00 Final Observation Date Value Abnormality Reference (Units ) Status BUN 02/21/2024 04:39:00 33 Above high normal 6-20 (mg/dL) Final Creatinine 02/21/2024 04:39:00 0.8 0.6-1.2 (mg/dL) Final Glomerular filtration rate/1.73 sq M.predicted [Volume Rate/Area] in Serum, Plasma or Blood by Creatinine-based formula (CKD-EPI) 02/21/2024 04:39:00 >90 >=60 (mL/min) Final eGFR is calculated based on the CKD-EPI 2020 equation. Sodium 02/21/2024 04:39:00 135 135-146 (m mol/L) Final Potassium 02/21/2024 04:39:00 4.1 3.5-5.1 (m mol/L) Final Cl 02/21/2024 04:39:00 98 98-107 (mm ol/L) Final CO2 02/21/2024 04:39:00 25 22-32 (mmo l/L) Final Anion gap 02/21/2024 04:39:00 12 7-15 (mmol /L) Final Glucose 02/21/2024 04:39:00 106 70-120 (mg /dL) Final Calcium 02/21/2024 04:39:00 9.2 8.4-10.2 ( mg/dL) Final Performing Location LABORATORY [facility] [place] - [address] [place] [address]
--- OUTSIDE RECORDS SUMMARY | 2024-05-23 05:40 | External Medical Summary ---
Author Name Unknown Address Unknown Organization K01:[facility] [place] - [facility] [address] Laboratory Report Ordering Provider Test Date Status GUSTAVO ESCOTO 02/21/2024 04:39:00 Final Observation Date Value Abnormality Reference (Units ) Status WBC, Total 02/21/2024 04:39:00 13.95 Above high normal 4.00-10.80 (K/uL) Final RBC 02/21/2024 04:39:00 3.22 4.50-5.25 (M/uL) Final Hemoglobin 02/21/2024 04:39:00 8.7 Below low normal 14.0-16.8 (g/dL) Final HCT 02/21/2024 04:39:00 28.4 Below low normal 40.0-48.4 (%) Final MCV 02/21/2024 04:39:00 88.2 82.0-99.5 (fL) Final MCH 02/21/2024 04:39:00 27.0 27.0-34.0 (pg) Final MCHC 02/21/2024 04:39:00 30.6 32.0-36.0 (g/dL) Final RDW 02/21/2024 04:39:00 16.1 11.5-15.5 (%) Final Platelets 02/21/2024 04:39:00 192 140-400 (K/uL) Final MPV 02/21/2024 04:39:00 11.3 6.6-11.1 (fL) Final Nucleated erythrocytes/100 leukocytes [Ratio] in Blood by Automated count 02/21/2024 04:39:00 1 Above high normal <=0 (/100 WBCs) Final Performing Location [facility] [place] - [address] [facility] [address]
--- OUTSIDE RECORDS SUMMARY | 2024-05-23 05:40 | External Medical Summary ---
Author Name Unknown Address Unknown Organization K01:[facility] [place] [address] [place] [address] Laboratory Report Ordering Provider Test Date Status GUSTAVO ESCOTO 02/20/2024 04:40:00 Final Observation Date Value Abnormality Reference (Units ) Status BUN 02/20/2024 04:40:00 33 Above high normal 6-20 (mg/dL) Final Creatinine 02/20/2024 04:40:00 1.0 0.6-1.2 (mg/dL) Final Glomerular filtration rate/1.73 sq M.predicted [Volume Rate/Area] in Serum, Plasma or Blood by Creatinine-based formula (CKD-EPI) 02/20/2024 04:40:00 85 >=60 (mL/min) Final eGFR is calculated based on the CKD-EPI 2020 equation. Sodium 02/20/2024 04:40:00 135 135-146 (m mol/L) Final Potassium 02/20/2024 04:40:00 4.3 3.5-5.1 (m mol/L) Final Cl 02/20/2024 04:40:00 98 98-107 (mm ol/L) Final CO2 02/20/2024 04:40:00 25 22-32 (mmo l/L) Final Anion gap 02/20/2024 04:40:00 12 7-15 (mmol /L) Final Glucose 02/20/2024 04:40:00 107 70-120 (mg /dL) Final Calcium 02/20/2024 04:40:00 9.5 8.4-10.2 ( mg/dL) Final Performing Location [facility] [place] [address] [place] [address]
--- OUTSIDE RECORDS SUMMARY | 2024-05-23 05:40 | External Medical Summary ---
Author Name Unknown Address Unknown Organization K01:[facility] [place] [address] [facility] [address] Laboratory Report Ordering Provider Test Date Status GUSTAVO ESCOTO 02/21/2024 04:39:00 Final Observation Date Value Abnormality Reference (Units ) Status SYNC LEUKOCYTES IN BLOOD BY AUTOMATED COUNT 02/21/2024 04:39:00 13.95 Above high normal 4.00-10.80 (K/uL) Final Segs 02/21/2024 04:39:00 69.4 40.0-75.0 (%) Final Lymphs % 02/21/2024 04:39:00 11.9 Below low normal 18.0-42.0 (%) Final Monos 02/21/2024 04:39:00 14.4 Above high normal 1.0-11.0 (%) Final Eosinophils 02/21/2024 04:39:00 1.1 0.0-6.0 (%) Final Basos 02/21/2024 04:39:00 0.3 0.0-2.0 (%) Final Immature Granulocyte, Percent 02/21/2024 04:39:00 2.9 Above high normal 0.0-2.0 (%) Final Absolute Segs 02/21/2024 04:39:00 9.67 Above high normal 1.80-7.70 (K/uL) Final Lymphs, absolute 02/21/2024 04:39:00 1.66 1.00-4.80 (K/ul) Final Monos, Abs 02/21/2024 04:39:00 2.01 Above high normal 0.00-1.10 (K/uL) Final Eos, Abs 02/21/2024 04:39:00 0.16 0.00-0.70 (K/uL) Final Basos, Abs 02/21/2024 04:39:00 0.04 0.00-0.20 (K/uL) Final Immature Granulocytes, Number 02/21/2024 04:39:00 0.41 Above high normal 0.00-0.20 (K/uL) Final Performing Location [facility] [place] [address] [facility] [address]
--- OUTSIDE RECORDS SUMMARY | 2024-05-23 05:40 | External Medical Summary ---
Author Name Unknown Address Unknown Organization K01:[facility] [place] [facility] [address] Laboratory Report Ordering Provider Test Date Status GUSTAVO ESCOTO 02/20/2024 04:40:00 Final Observation Date Value Abnormality Reference (Units ) Status WBC, Total 02/20/2024 04:40:00 15.61 Above high normal 4.00-10.80 (K/uL) Final RBC 02/20/2024 04:40:00 3.24 4.50-5.25 (M/uL) Final Hemoglobin 02/20/2024 04:40:00 8.8 Below low normal 14.0-16.8 (g/dL) Final HCT 02/20/2024 04:40:00 28.6 Below low normal 40.0-48.4 (%) Final MCV 02/20/2024 04:40:00 88.3 82.0-99.5 (fL) Final MCH 02/20/2024 04:40:00 27.2 27.0-34.0 (pg) Final MCHC 02/20/2024 04:40:00 30.8 32.0-36.0 (g/dL) Final RDW 02/20/2024 04:40:00 16.4 11.5-15.5 (%) Final Platelets 02/20/2024 04:40:00 168 140-400 (K/uL) Final MPV 02/20/2024 04:40:00 12.2 6.6-11.1 (fL) Final Nucleated erythrocytes/100 leukocytes [Ratio] in Blood by Automated count 02/20/2024 04:40:00 1 Above high normal <=0 (/100 WBCs) Final Performing Location [facility] [place] [address] [facility] [address]
--- OUTSIDE RECORDS SUMMARY | 2024-05-23 05:41 | External Medical Summary | Summary of Care ---
Author Name Unknown Organization [facility] Address [address] [place] [address] Phone [phone] Care Team Providers Care Percussion Tuner Name Role Phone Rashawn Obrien MD Primary Care Provider [phone] Encounter Details Date Type Department Care Team (Late st Contact Info) Description 02/09/2024 Orders Only Cardiology [facility] [place] [address] [place] [address] Eladio Teixeira MD [address] [place] [address] Allergies No known active allergiesdocumented as of this encounter (statuses as of 02/17/2024) Medications Ascorbic Acid (VITAMIN C) 500 MG CAPS Take by mouth. Suspe nded Multiple Vitamins-Minerals (CENTRUM) Tablet Take 1 Tab by mouth daily. Suspended Zoster Vac Recomb Adjuvanted 50 MCG/0.5ML Intramuscular Suspension Reconstituted (SHINGRIX) Inject 0.5 mL into a large muscle now and repeat dose in 60 to 180 days 1 Each 1 01/20/20 20 Suspended Sildenafil Citrate 100 MG Oral TabletIndications: Other male erectile dysfunction Take 1 Tablet by mouth daily as needed for Erectile Dysfunction. 10 Tablet 5 01/23/20 21 Suspended prednisoLONE Acetate 1 % Ophthalmic Suspension (Pred Forte) Instill 1 Drop into both eyes daily. 10 mL 4 03/12/19 22 Suspended Additional Information Patient taking differently:1 Drop Both eyes Daily(AM),Daily right eye, Reported on 02/13/2024 Atorvastatin Calcium 40 MG Oral Tablet (Lipitor)Indicatio ns:Dyslipidemia, goal to be determined Take 1 Tablet by mouth in the morning. 90 Tablet 3 04/29/19 24 Suspended Allopurinol 300 MG Oral Tablet (Zyloprim)Indicati ons:Gouty arthropathy TAKE 1 TABLET BY MOUTH ONCE DAILY 90 Tablet 2 06/30/19 24 Suspended Sildenafil Citrate 100 MG Oral Tablet (Viagra)Indication s:Other male erectile dysfunction Take 1 Tablet by mouth daily as needed for Erectile Dysfunction. 1-4 hours before intercourse, no more than 1 dose in 24 hours. 10 Tablet 5 08/04/19 24 Suspended hydroCHLOROthiazid e 25 MG Oral Tablet (Hydrodiuril)Indic ations:Essential hypertension with goal blood pressure less than 130/80 Take 1 Tablet by mouth in the morning. 90 Tablet 1 12/11/19 24 Suspended Losartan Potassium 100 MG Oral Tablet (Cozaar)Indication s:Essential hypertension with goal blood pressure less than 130/80 Take 1 Tablet by mouth in the morning. In the morning.. 90 Tablet 1 12/11/19 24 Suspended Metoprolol Succinate ER 100 MG Oral Tablet Extended Release 24 Hour (toPROL XL)Indications:Hyp ertrophic cardiomyopathy (HCC),Essential hypertension with goal blood pressure less than 130/80 Take 1 Tablet by mouth in the morning. 90 Tablet 3 12/11/19 24 Suspended Apixaban 5 MG Oral Tablet (Eliquis)Indicatio ns:Paroxysmal atrial fibrillation (HCC),Anticoagulat ion management encounter Take 1 Tablet by mouth in the morning and 1 Tablet before bedtime. Stop warfarin. 180 Tablet 4 01/22/20 24 Suspended documented as of this encounter (statuses as of 02/17/2024) Active Problems Problem Noted Date Diagnosed Date S/P AVR (aortic valve replacement) 02/17/2024 S/P CABG x 3 02/17/2024 Coronary artery disease invo lving [place] coronary artery of [place] heart with unstable angina pectoris 02/15/2024 Aortic [...] as of this encounter (statuses as of 02/17/2024) Resolved Problems Problem Noted Date Diagnosed Date [...] as of this encounter (statuses as of 02/17/2024) Immunizations Name Administration Dates Next Due COVID-19 [...] Industry Job Start Date Job End Date [place] Not on file Not on file Not on file Not on file Not on file Not on file Not on file documented as of this encounter Plan of Treatment Upcoming Encounters Date Type Department Care Team (Late st Contact Info) Description 05/06/2024 8:20 AM EST [facility] [place] [facility] [address] [phone] Rashawn Obrien MD [address] [address] 06/17/2024 7:15 AM EDT Cardiac Studies Cardiac Studies, [facility] [address] [facility] [place] [address] 07/05/2024 8:00 AM EDT Office Visit Cardiology, [facility] [address] [facility] [place] [address] Idalmis Mccrary CRNP [address] [facility] [place] [address] Scheduled Procedures [...] Vaccine ( season) 2023 05/17/2020, 04/17/2020 GFR 02/16/2025 02/17/2024, 02/06, 02/16/2024, Additional history exists Albumin/Creatinine Ratio 02/09/2026 023, [...] this encounter Medical Devices Implanted Type Area Candy Spreader Device Identifier Shelf Expiration Date Model / Serial / Lot Suture Steel 6 B&S19 M654g - [id number] Implanted:Qty: 7 on 02/16/2024 by Bill Kang MD at [place] [facility] N/A: Sternum JNJ : [employer] 11/06/2028 M654G / / 103BLE Clip Atrial Penditure 45mm - [id number] Implanted:Qty: 1 on 02/16/2024 by Bill Kang MD at [place] [facility] N/A: Heart [employer] : CRM [id number] 05/27/2024 RICHIE C45 / / [id number] Valve Pericardial 25mm - [id number] - [id number] Implanted:Qty: 1 on 02/16/2024 by Bill Kang MD at [place] [facility] N/A: Heart [employer] SOLIS [id number] 07/05/2027 [id number] MM / [id number] / [id number] Marker Coronary - [id number] Implanted:Qty: 2 on 02/16/2024 by Bill Kang MD at [place] [facility] N/A: Aorta [employer] 12/06/2026 [facility] / / [id number] documented as of this encounter Procedures Procedure Name Priority Date/Time Associated Diagnosis Comments RADIOLOGY EXAM - GENERAL RAD (IMAGES ONLY,NO REPORT) Routine 02/09/2024 12:30 PM EST documented in this encounter Results * RADIOLOGY EXAM - GENERAL RAD (IMAGES ONLY,NO REPORT) (02/09/2024 12:30 PM EST) 02/09/2024 12:2 7 PM EST Narrative Scheduling, Silent - 02/17/2024 11:16 PM EST This is an imaging study not interpreted or resulted by a [employer] or [employer] contracted radiologist. us Eladio Teixeira MD RADIOLOGY (RAD GENERAL) Final Result documented in this encounter Advance Directives * Full Code (Latest Code Status on File) Date Activated Date Inactivated Comments 02/16/2024 2:06 PM This order re flects the patients wishes and were consensually agreed upon. Question Answer Comments Discussion of Advance Directives occurred with: Patient * Full Code Date Activated Date Inactivated Comments 02/13/2024 7:20 PM 02/16/2024 2:06 PM This order reflects the patients wishes and were consensually agreed upon. Question Answer Comments Discussion of Advance Directives occurred with: Patient Care Teams Percussion Tuner Relationship Specialty Start Date End Date Rashawn Obrien MD [address] [place] [address] PCP - General 05/26/07 documented as of this encounter
--- OUTSIDE RECORDS SUMMARY | 2024-05-23 05:41 | External Medical Summary | Summary of Care ---
Author Name Unknown Organization [facility] Address [address] [place] [address] Phone [phone] Care Team Providers Care Land Agent Name Role Phone Rashawn Obrien MD Primary Care Provider [phone] Reason for Visit * Reason Comments Dosage Adjustment Via Phone (anticoag Cl inic) Encounter Details Date Type Department Care Team (Latest Contact Info) Description 02/19/2024 5:10 PM EST Anticoagulation Pharmacy, [facility] [address] [place] [phone] [place], [facility] [address] [place] [address] Anticoagulation management encounter*; Paroxysmal atrial fibrillation (HCC); S/P AVR (aortic valve replacement); S/P CABG x 3 Allergies No known active allergiesdocumented as of this encounter (statuses as of 02/19/2024) Medications Ascorbic Acid (VITAMIN C) 500 MG CAPS Take by mouth. Suspe nded Multiple Vitamins-Minerals (CENTRUM) Tablet Take 1 Tab by mouth daily. Suspended Zoster Vac Recomb Adjuvanted 50 MCG/0.5ML Intramuscular Suspension Reconstituted (SHINGRIX) Inject 0.5 mL into a large muscle now and repeat dose in 60 to 180 days 1 Each 1 01/20/20 20 Suspended prednisoLONE Acetate 1 % Ophthalmic Suspension [...] DAILY 90 Tablet 2 06/30/19 24 Suspended hydroCHLOROthiazid e 25 MG Oral [...] as of this encounter (statuses as of 02/19/2024) Active Problems Problem Noted Date Diagnosed Date S/P AVR (aortic valve replacement) 02/17/2024 S/P CABG x 3 02/17/2024 Coronary artery disease invo lving [place] coronary artery of [place] heart with unstable angina pectoris 02/15/2024 Aortic [...] as of this encounter (statuses as of 02/19/2024) Resolved Problems Problem Noted Date Diagnosed Date [...] as of this encounter (statuses as of 02/19/2024) Immunizations Name Administration Dates Next Due COVID-19 mRNA, LNP-s, No Pre serve, 2-Dose Series ([email or web address]) 05/17/2020,04/17/2020 Pneumococcal Conjugate Vacc, 13 Valent (Prevnar) [...] Industry Job Start Date Job End Date [place] Not on file Not on file Not [...] documented in this encounter Progress Notes * Kizzy Farrell RPh - 02/19/2024 11:39 AM EST Medication Therapy Disease Management - Anticoagulation Patient: Alexis Garcia | : 1950 Patient continues to remain admitted at this time. Per chart review, no notes on discharge at this time. Call placed to f/u on Thursday. Kizzy Farrell RPh, PharmD Clinical Pharmacist - [place] [facility] 02/19/2024, 2:44 PM [phone] documented in this encounter Plan of Treatment Upcoming Encounters Date Type Department Care Team (Late st Contact Info) Description 02/22/2024 5:10 PM EST [facility] [address] [place] [phone] [facility] [address] [facility] [facility] [address] 02/23/2024 8:50 AM EST [facility] [phone] [facility] [address] [facility] [address] 05/06/2024 8:20 AM EST [facility] [place] [facility] [place] [facility] [phone] Rashawn [facility]rien [facility] [address] [facility] [address] 06/17/2024 7:15 AM EDT Cardiac Studies Cardiac Studies, [facility] [address] [facility] [place] [address] 07/05/2024 8:00 AM EDT Office Visit Cardiology, [facility] [address] Idalmis Mccrary CRNP [address] [facility] [place] [address] Scheduled Procedures Name Priority Associated Diagnoses Date/Ti [...] ( - season) 2023 05/17/2020, 04/17/2020 GFR 02/18/2025 02/19/2024, 02/06, 02/17/2024, Additional history exists Albumin/Creatinine Ratio 02/09/2026 023, [...] this encounter Medical Devices Implanted Type Area Welding Technician Device Identifier Shelf Expiration Date Model / Serial / Lot Suture Steel 6 B&S19 M654g - [id number] Implanted:Qty: 7 on 02/16/2024 by [place] Kang [place] [facility] [place]: Sternum JNJ : [employer] 11/06/2028 M654G / / 103BLE Clip Atrial Penditure 45mm - [id number] Implanted:Qty: 1 on 02/16/2024 by Bill Kang MD [place] [facility] [place]A: Heart [employer] : CRM [id number] 05/27/2024 RICHIE C45 / / [id number] Valve Pericardial 25mm - [id number] - [id number] Implanted:Qty: 1 on 02/16/2024 by Bill Kang MD [place] [facility] [place]/A: Heart [employer] [id number] 07/05/2027 [id number] MM / [id number] / [id number] Marker Coronary - [id number] Implanted:Qty: 2 on 02/16/2024 by Bill Kang MD [place] [facility] N/A: Aorta [employer] 12/06/2026 [facility] / / [id number] documented as of this encounter Visit Diagnoses [...] Directives occurred with: Patient Care Teams Land Agent Relationship Specialty Start Date End Date Rashawn Obrien MD [address] [place] [address] PCP - General 05/26/07 documented as of this encounter"
--- OUTSIDE RECORDS SUMMARY | 2024-05-23 05:41 | External Medical Summary ---
Author Name Unknown Address Unknown Organization K01:LAB[facility] [place] - [address] [facility] [address] Laboratory Report Ordering Provider Test Date Status GUSTAVO ESCOTO 02/17/2024 13:37:53 Final Observation Date Value Abnormality Reference (Units ) Status Body temperature 02/17/2024 13:37:53 37.0 (C) Final pH of Arterial blood 02/17/2024 13:37:53 7.388 7.350-7.450 (units) Final Carbon dioxide [Partial pressure] in Arterial blood 02/17/2024 13:37:53 40.1 35.0-45.0 (mmHg) Final Oxygen [Partial pressure] in Arterial blood 02/17/2024 13:37:53 79.2 75.0-100.0 (mmHg) Final Base excess, Arterial 02/17/2024 13:37:53 -0.7 -2.0-2.0 (mmol/L) Final Hemoglobin [Mass/volume] in Blood by Oximetry 02/17/2024 13:37:53 9.6 Below low normal 14.0-16.8 (g/dL) Final Oxyhemoglobin, Arterial (FO2HB) 02/17/2024 13:37:53 92.7 Below low normal 94.0-99.0 (% total Hgb) Final Carboxyhemoglobin 02/17/2024 13:37:53 1.8 Above high normal <=1.5 (% total Hgb) Final Smokers: 0-9.0 % Methemoglobin 02/17/2024 13:37:53 1.7 Above high normal <=1.5 (% total Hgb) Final Deoxyhemoglobin/Hemog lobin.total in Arterial blood 02/17/2024 13:37:53 3.8 0.0-5.0 (% total Hgb) Final Oxygen content in Arterial blood 02/17/2024 13:37:53 12.6 Below low normal 15.0-24.0 (%vol) Final Potassium, Whole Blood 02/17/2024 13:37:53 4.5 3.5-5.1 (mmol/L) Final Sodium, Whole Blood 02/17/2024 13:37:53 139 135-146 (mmol/L) Final Chloride, Whole Blood 02/17/2024 13:37:53 104 98-107 (mmol/L) Final Calcium.ionized [Moles/volume] in Blood by Ion-selective membrane electrode (ISE) 02/17/2024 13:37:53 1.16 1.13-1.32 (mmol/L) Final Anion gap, Whole Blood 02/17/2024 13:37:53 11.3 7.0-15.0 (mmol/L) Final Glucose, whole blood 02/17/2024 13:37:53 148 Above high normal 70-120 (mg/dL) Final Oxygen/Total gas setting [Volume Fraction] Ventilator 02/17/2024 13:37:53 Not Provided (%) Final O2 FLOW, ARTERIAL - [facility] 02/17/2024 13:37:53 4L (L/min) Final Bicarbonate, Venous, POC (i-STAT) 02/17/2024 13:37:53 23.6 23.0-31.0 (mmol/L) Final Performing Location LABOR[facility] - [address] [facility] [address]
--- OUTSIDE RECORDS SUMMARY | 2024-05-23 05:41 | External Medical Summary | Summary of Care ---
Author Name Unknown Organization [facility] Address [address] [place] [address] Phone [phone] Care Team Providers Care Workers' Compensation Claims Examiner Name Role Phone Rashawn Obrien MD Primary Care Provider [phone] Reason for Visit * Auth/Cert Specialty Diagnoses / Procedures Referred By Claudia t Referred To Contact Diagnoses A.S., angina Lluvia, Eladio Hardy MD [address] [place] [address] Phone: tel: fax: [facility], [facility] [address] [place] [address] Referral ID Status Reason Start Date Expiration Date Visits Re quested Visits Authorized [id number] Encounter Details Date Type Department Care Team (Latest Contact Info) Description 02/16/2024 1:05 PM EST Hospital Encounter Cardiac Studies [facility] [address] [place] [address] Discharge Disposition: Home - Self Care Allergies [...] Active Problems Problem Noted Date Diagnosed Date Coronary artery disease invo lving [place] coronary artery of [place] heart with unstable angina pectoris 02/15/2024 Aortic [...] Industry Job Start Date Job End Date [place] Not on file Not on file Not [...] Description 05/06/2024 8:20 AM EST Office Visit [facility] Heather Bautista [address] [phone] Rashawn Obrien MD [address] [address] 06/17/2024 7:15 AM EDT Cardiac Studies Cardiac Studies, [facility] [address] [facility] [place] [address] 07/05/2024 8:00 AM EDT Office Visit Cardiology, [facility] [address] [facility] [place] [address] Idalmis Mccrary CRNP [address] [facility] [place] [address] Scheduled Procedures Name Priority Associated Diagnoses Date/Ti [...] ( - season) 2023 05/17/2020, 04/17/2020 GFR 02/16/2025 02/17/2024, [...] this encounter Medical Devices Implanted Type Area Packaging Materials Inspector Device Identifier Shelf Expiration Date Model / Serial / Lot Suture Steel 6 B&S19 M654g - [id number] Implanted:Qty: 7 on 02/16/2024 by Bill Kang MD [place] [facility] [place]/A: Sternum JNJ : [employer] 11/06/2028 M654G / / 103BLE Clip Atrial Penditure 45mm - [id number] Implanted:Qty: 1 on 02/16/2024 by Bill Kang MD [place] [facility] N/A: Heart [employer] : CRM [id number] 05/27/2024 RICHIE C45 / / [id number] Valve Pericardial 25mm - [id number] - [id number] Implanted:Qty: 1 on 02/16/2024 by Bill Kang MD [place] [facility] N/A: Heart [employer] [id number] 07/05/2027 [id number] MM / [id number] / [id number] Marker Coronary - [id number] Implanted:Qty: 2 on 02/16/2024 by Bill Kang MD [place] [facility] N/A: Aorta [employer] 12/06/2026 [facility] / / [id number] documented as of this encounter Procedures Procedure Name Priority Date/Time Associated Diagnosis Comments HC DOPPLER ECHO COMPLETE Routine 02/16/2024 1:12 PM EST Valvular heart disease documented in this encounter Results * CV ECHO, THANH INTRAOPERATIVE (02/16/2024 1:12 PM EST) LEFT VENTRICULAR EJECTION FRACTION 55 % [facility] 02/16/2024 5:54 AM EST us Haylie Venu [facility]CH[facility]ARDI[facility]Y Final Result [facility] documented in this encounter Advance Directives * [...] Advance Directives occurred with: Patient Care Teams Workers' Compensation Claims Examiner Relationship Specialty Start Date End Date Rashawn Obrien MD [address] [facility] [place] [address] PCP - General 05/26/07 documented as of this encounter
--- OUTSIDE RECORDS SUMMARY | 2024-05-23 05:41 | External Medical Summary ---
Author Name Unknown Address Unknown Organization K01:[place]ORY [facility] [place] [address] [place] [address] Laboratory Report Ordering Provider Test Date Status GUSTAVO ESCOTO 02/18/2024 03:58:11 Final Observation Date Value Abnormality Reference (Units ) Status BUN 02/18/2024 03:58:11 24 Above high normal 6-20 (mg/dL) Final Creatinine 02/18/2024 03:58:11 1.1 0.6-1.2 (mg/dL) Final Glomerular filtration rate/1.73 sq M.predicted [Volume Rate/Area] in Serum, Plasma or Blood by Creatinine-based formula (CKD-EPI) 02/18/2024 03:58:11 72 >=60 (mL/min) Final eGFR is calculated based on the CKD-EPI 2020 equation. Sodium 02/18/2024 03:58:11 136 135-146 (m mol/L) Final Potassium 02/18/2024 03:58:11 4.6 3.5-5.1 (m mol/L) Final Cl 02/18/2024 03:58:11 100 98-107 (mm ol/L) Final CO2 02/18/2024 03:58:11 25 22-32 (mmo l/L) Final Anion gap 02/18/2024 03:58:11 11 7-15 (mmol /L) Final Glucose 02/18/2024 03:58:11 153 Above high normal 70 -120 (mg/dL) Final Calcium 02/18/2024 03:58:11 9.2 8.4-10.2 ( mg/dL) Final Performing Location [facility] [place] - [address] [place] [address]
--- OUTSIDE RECORDS SUMMARY | 2024-05-23 05:41 | External Medical Summary ---
Author Name Unknown Address Unknown Organization : Laboratory Report Ordering Provider Test Date Status SULMA LEE 02/17/2024 04:03:02 Final Observation Date Value Abnormality Reference (Units ) Status Glucose Point of Care 02/17/2024 04:03:02 106 70-120 (mg/dL) Final Performing Location
--- OUTSIDE RECORDS SUMMARY | 2024-05-23 05:41 | External Medical Summary ---
Author Name Unknown Address Unknown Organization K01:[place] [facility] [place] [address] [place] [address] Laboratory Report Ordering Provider Test Date Status GUSTAVO ESCOTO 02/17/2024 03:59:45 Final Stop Collection after Bigg kern is removed Observation Date Value Abnormality Reference (Units ) Status Oxygen saturation in Venous blood 02/17/2024 03:59:45 42.2 40.0-85.0 (%) Final Performing Location [facility] [facility] [place] [address] [place] [address]
--- OUTSIDE RECORDS SUMMARY | 2024-05-23 05:41 | External Medical Summary ---
Author Name Unknown Address Unknown Organization K01:[place] [facility] [place] [facility] [address] [facility] [address] Laboratory Report Ordering Provider Test Date Status GUSTAVO ESCOTO 02/17/2024 03:59:45 Final Observation Date Value Abnormality Reference (Units ) Status WBC, Total 02/17/2024 03:59:45 10.67 4.00-10.80 (K/uL) Final RBC 02/17/2024 03:59:45 2.83 4.50-5.25 (M/uL) Final Hemoglobin 02/17/2024 03:59:45 7.8 Below low normal 14.0-16.8 (g/dL) Final HCT 02/17/2024 03:59:45 25.2 Below low normal 40.0-48.4 (%) Final MCV 02/17/2024 03:59:45 89.0 82.0-99.5 (fL) Final MCH 02/17/2024 03:59:45 27.6 27.0-34.0 (pg) Final MCHC 02/17/2024 03:59:45 31.0 32.0-36.0 (g/dL) Final RDW 02/17/2024 03:59:45 16.3 11.5-15.5 (%) Final Platelets 02/17/2024 03:59:45 105 Below low normal 140-400 (K/uL) Final MPV 02/17/2024 03:59:45 11.0 6.6-11.1 (fL) Final Nucleated erythrocytes/100 leukocytes [Ratio] in Blood by Automated count 02/17/2024 03:59:45 0 <=0 (/100 WBCs) Final Performing Location [place] [facility] [place] [address] [facility] [address] [facility] [address]
--- OUTSIDE RECORDS SUMMARY | 2024-05-23 05:41 | External Medical Summary ---
Author Name Unknown Address Unknown Organization : Laboratory Report Ordering Provider Test Date Status SULMA LEE 02/16/2024 21:59:54 Final Observation Date Value Abnormality Reference (Units ) Status Glucose Point of Care 02/16/2024 21:59:54 110 70-120 (mg/dL) Final Performing Location
--- OUTSIDE RECORDS SUMMARY | 2024-05-23 05:41 | External Medical Summary ---
Author Name Unknown Address Unknown Organization K01:[place] [facility] [place] [facility] [address] [facility] [place] [address] Laboratory Report Ordering Provider Test Date Status GUSTAVO ESCOTO 02/19/2024 05:00:00 Final Observation Date Value Abnormality Reference (Units ) Status WBC, Total 02/19/2024 05:00:00 15.98 Above high normal 4.00-10.80 (K/uL) Final RBC 02/19/2024 05:00:00 3.40 4.50-5.25 (M/uL) Final Hemoglobin 02/19/2024 05:00:00 9.3 Below low normal 14.0-16.8 (g/dL) Final HCT 02/19/2024 05:00:00 29.8 Below low normal 40.0-48.4 (%) Final MCV 02/19/2024 05:00:00 87.6 82.0-99.5 (fL) Final MCH 02/19/2024 05:00:00 27.4 27.0-34.0 (pg) Final MCHC 02/19/2024 05:00:00 31.2 32.0-36.0 (g/dL) Final RDW 02/19/2024 05:00:00 16.8 11.5-15.5 (%) Final Platelets 02/19/2024 05:00:00 130 Below low normal 140-400 (K/uL) Final MPV 02/19/2024 05:00:00 11.7 6.6-11.1 (fL) Final Nucleated erythrocytes/100 leukocytes [Ratio] in Blood by Automated count 02/19/2024 05:00:00 0 <=0 (/100 WBCs) Final Performing Location [place] [facility] [place] [address] [place] [address]
--- OUTSIDE RECORDS SUMMARY | 2024-05-23 05:41 | External Medical Summary ---
Author Name Unknown Address Unknown Organization : Laboratory Report Ordering Provider Test Date Status SULMA LEE 02/16/2024 19:59:25 Final Observation Date Value Abnormality Reference (Units ) Status Glucose Point of Care 02/16/2024 19:59:25 141 Above high normal 70-120 (mg/dL) Final Performing Location
--- OUTSIDE RECORDS SUMMARY | 2024-05-23 05:41 | External Medical Summary ---
Author Name Unknown Address Unknown Organization K01:LABORATORY [facility] - [address] [place] [address] Laboratory Report Ordering Provider Test Date Status GUSTAVO ESCOTO 02/19/2024 05:00:00 Final Observation Date Value Abnormality Reference (Units ) Status Magnesium 02/19/2024 05:00:00 2.5 1.5-2.6 (m g/dL) Final Performing Location LABORATORY [facility] - [address] [place] [address]
--- OUTSIDE RECORDS SUMMARY | 2024-05-23 05:41 | External Medical Summary ---
Author Name Unknown Address Unknown Organization K01:[place] [facility] [place] [facility] [address] [facility] [address] Laboratory Report Ordering Provider Test Date Status GUSTAVO ESCOTO 02/18/2024 03:58:11 Final Observation Date Value Abnormality Reference (Units ) Status WBC, Total 02/18/2024 03:58:11 16.55 Above high normal 4.00-10.80 (K/uL) Final RBC 02/18/2024 03:58:11 3.24 4.50-5.25 (M/uL) Final Hemoglobin 02/18/2024 03:58:11 8.7 Below low normal 14.0-16.8 (g/dL) Final HCT 02/18/2024 03:58:11 28.2 Below low normal 40.0-48.4 (%) Final MCV 02/18/2024 03:58:11 87.0 82.0-99.5 (fL) Final MCH 02/18/2024 03:58:11 26.9 27.0-34.0 (pg) Final MCHC 02/18/2024 03:58:11 30.9 32.0-36.0 (g/dL) Final RDW 02/18/2024 03:58:11 16.7 11.5-15.5 (%) Final Platelets 02/18/2024 03:58:11 100 Below low normal 140-400 (K/uL) Final MPV 02/18/2024 03:58:11 11.9 6.6-11.1 (fL) Final Nucleated erythrocytes/100 leukocytes [Ratio] in Blood by Automated count 02/18/2024 03:58:11 0 <=0 (/100 WBCs) Final Performing Location LABORATORY [facility] - [address] [place] [address]
--- OUTSIDE RECORDS SUMMARY | 2024-05-23 05:41 | External Medical Summary ---
Author Name Unknown Address Unknown Organization K01:LABORATORY [facility] - [facility] [address] [facility] [address] Laboratory Report Ordering Provider Test Date Status GUSTAVO ESCOTO 02/17/2024 03:59:45 Final Observation Date Value Abnormality Reference (Units ) Status BUN 02/17/2024 03:59:45 16 6-20 (mg/dL) Final Creatinine 02/17/2024 03:59:45 1.1 0.6-1.2 (mg/dL) Final Glomerular filtration rate/1.73 sq M.predicted [Volume Rate/Area] in Serum, Plasma or Blood by Creatinine-based formula (CKD-EPI) 02/17/2024 03:59:45 74 >=60 (mL/min) Final eGFR is calculated based on the CKD-EPI 2020 equation. Sodium 02/17/2024 03:59:45 141 135-146 (m mol/L) Final Potassium 02/17/2024 03:59:45 4.6 3.5-5.1 (m mol/L) Final Cl 02/17/2024 03:59:45 103 98-107 (mm ol/L) Final CO2 02/17/2024 03:59:45 26 22-32 (mmo l/L) Final Anion gap 02/17/2024 03:59:45 12 7-15 (mmol /L) Final Glucose 02/17/2024 03:59:45 114 70-120 (mg /dL) Final Calcium 02/17/2024 03:59:45 9.1 8.4-10.2 ( mg/dL) Final Performing Location LABORATORY [facility] - [address] [place] [address]
--- OUTSIDE RECORDS SUMMARY | 2024-05-23 05:41 | External Medical Summary | Summary of Care ---
Author Name Unknown Organization [facility] Address [address] [place] [address] Phone [phone] Care Team Providers Care Principal Developer Name Role Phone Rashawn Obrien MD Primary Care Provider [phone] Encounter Details Date Type Department Care Team (Latest Contact Info) Description 02/09/2024 12:30 PM EST - 02/09/2024 11:59 PM EST Hospital Encounter Radiology Film File [address] [place] [address] Discharge Disposition: Home - Self Care Allergies No known active allergiesdocumented as of this encounter (statuses as of 02/18/2024) Medications Ascorbic Acid (VITAMIN C) 500 MG CAPS Take by mouth. Suspended Multiple Vitamins-Minerals (CENTRUM) Tablet Take 1 Tab by mouth daily. Suspended Zoster Vac Recomb Adjuvanted 50 MCG/0.5ML Intramuscular Suspension Reconstituted (SHINGRIX) Inject 0.5 mL into a large muscle now and repeat dose in 60 to 180 days 1 Each 1 020 Suspended Sildenafil Citrate 100 MG Oral TabletIndications :Other male erectile dysfunction Take 1 Tablet by mouth daily as needed for Erectile Dysfunction. 10 Tablet 5 021 2023 Discontinued prednisoLONE Acetate 1 % Ophthalmic Suspension (Pred Forte) Instill 1 Drop into both eyes daily. 10 mL 4 022 Suspended Additional Information Patient taking differently:1 Drop Both eyes Daily(AM),Daily right eye, Reported on 02/13/2024 Atorvastatin Calcium 40 MG Oral Tablet (Lipitor)Indicati ons:Dyslipidemia, goal to be determined Take 1 Tablet by mouth in the morning. 90 Tablet 3 024 Suspended Allopurinol 300 MG Oral Tablet (Zyloprim)Indicat ions:Gouty arthropathy TAKE 1 TABLET BY MOUTH ONCE DAILY 90 Tablet 2 024 Suspended Sildenafil Citrate 100 MG Oral Tablet (Viagra)Indicatio ns:Other male erectile dysfunction Take 1 Tablet by mouth daily as needed for Erectile Dysfunction. 1-4 hours before intercourse, no more than 1 dose in 24 hours. 10 Tablet 5 024 2023 Discontinued hydroCHLOROthiazi de 25 MG Oral Tablet (Hydrodiuril)Tanya cations:Essential hypertension with goal blood pressure less than 130/80 Take 1 Tablet by mouth in the morning. 90 Tablet 1 024 Suspended Losartan Potassium 100 MG Oral Tablet (Cozaar)Indicatio ns:Essential hypertension with goal blood pressure less than 130/80 Take 1 Tablet by mouth in the morning. In the morning.. 90 Tablet 1 024 Suspended Metoprolol Succinate ER 100 MG Oral Tablet Extended Release 24 Hour (toPROL XL)Indications:Hy pertrophic cardiomyopathy (HCC),Essential hypertension with goal blood pressure less than 130/80 Take 1 Tablet by mouth in the morning. 90 Tablet 3 024 Suspended Apixaban 5 MG Oral Tablet (Eliquis)Indicati ons:Paroxysmal atrial fibrillation (HCC),Anticoagula tion management encounter Take 1 Tablet by mouth in the morning and 1 Tablet before bedtime. Stop warfarin. 180 Tablet 4 024 Suspended documented as of this encounter (statuses as of 02/18/2024) Active Problems Problem Noted Date Diagnosed Date S/P AVR (aortic valve replacement) 02/17/2024 S/P CABG x 3 02/17/2024 Coronary artery disease invo lving [place] coronary artery of [place] heart with unstable angina pectoris 02/15/2024 Aortic [...] as of this encounter (statuses as of 02/18/2024) Resolved Problems Problem Noted Date Diagnosed Date [...] as of this encounter (statuses as of 02/18/2024) Immunizations Name Administration Dates Next Due COVID-19 mRNA, LNP-s, No Pre serve, 2-Dose Series ([employer]) 05/17/2020,04/17/2020 Pneumococcal Conjugate Vacc, 13 Valent (Prevnar) [...] Industry Job Start Date Job End Date [place] Not on file Not on file Not on file Not on file Not on file Not on file Not on file documented as of this encounter Plan of Treatment Upcoming Encounters Date Type Department Care Team (Late st Contact Info) Description 02/18/2024 5:10 PM EST Anticoagulation Pharmacy, [place] [address] [phone] [facility] [address] [address] Paroxysmal atrial fibrillation (HCC)*; S/P AVR (aortic valve replacement); S/P CABG x 3 02/19/2024 5:10 PM EST [facility] [phone] [facility] [address] [address] 05/06/2024 8:20 AM EST Office Visit Family Practice, [place] [address] [place] [phone] Rashawn Obrien MD [address] [facility] [address] 06/17/2024 7:15 AM EDT Cardiac Studies Cardiac Studies, [facility] [address] [facility] [place] [address] 07/05/2024 8:00 AM EDT Office Visit Cardiology, [facility] [address] [facility] [place] [address] Idalmis Mccrary CRNP [address] [place] [address] [place] [address] Scheduled Procedures Name Priority Associated Diagnoses Date/Ti [...] Vaccine ( season) 2023 05/17/2020, 04/17/2020 GFR 02/17/2025 02/18/2024, 02/06, 02/16/2024, Additional history exists Albumin/Creatinine Ratio [...] encounter Medical Devices Implanted Type Area Senior Network Engineer Device Identifier Shelf Expiration Date Model / Serial / Lot Suture Steel 6 B&S19 M654g - [id number] Implanted:Qty: 7 on 02/16/2024 by Bill Kang MD at [place] [facility] [place] N/A: Sternum JNJ : [employer] 11/06/2028 M654G / / [id number] Clip Atrial Penditure 45mm - [id number] Implanted:Qty: 1 on 02/16/2024 by Bill Kang MD at [place] [facility] [place] N/A: Heart [employer] : CRM [id number] 05/27/2024 RICHIE C45 / / [id number] Valve Pericardial 25mm - [id number] - [id number] Implanted:Qty: 1 on 02/16/2024 by Bill Kang MD at [place] [facility] [place] N/A: Heart [employer] SOLIS [id number] 07/05/2027 [id number] / [id number] / [id number] Marker Coronary - [id number] Implanted:Qty: 2 on 02/16/2024 by Bill Kang MD at [place] [facility] [place] N/A: Aorta [employer] 12/06/2026 AM-SD / / [id number] documented as of this encounter Procedures Procedure [...] study not interpreted or resulted by a [facility] or [facility] contracted radiologist. Eladio Teixeira MD RADIOLOGY (RAD GENERAL) Final [...] Directives occurred with: Patient Care Teams Principal Developer Relationship Specialty Start Date End Date Rozick, Rashawn S, MD [address] [facility] [place]HA[place] [address] PCP - General 05/26/07 documented as of this encounter
--- OUTSIDE RECORDS SUMMARY | 2024-05-23 05:41 | External Medical Summary ---
Author Name Unknown Address Unknown Organization K01:[place]ORY [facility] [place] [address] [place] [address] Laboratory Report Ordering Provider Test Date Status ADY WEST 02/18/2024 03:58:11 Final Warfarin Therapy
INR: 2 .0-3.0 conventional anticoagulation
INR: 2.5- 3.5 high intensity anticoagulation Observation Date Value Abnormality Reference (Units ) Status PT 02/18/2024 03:58:11 18.7 Above high normal 11 .6-15.2 (seconds) Final INR 02/18/2024 03:58:11 1.5 Above high normal 0. 8-1.2 Final Performing Location LABORATORY [facility] [place] [address] [place] [address]
--- OUTSIDE RECORDS SUMMARY | 2024-05-23 05:41 | External Medical Summary ---
Author Name Unknown Address Unknown Organization K01:LAB[place]ORY [facility] [place] [address] [facility] [address] Laboratory Report Ordering Provider Test Date Status GUSTAVO ESCOTO 02/16/2024 19:55:47 Final 6 hours after surgery and af ter NOW BMP draw. Observation Date Value Abnormality Reference (Units ) Status BUN 02/16/2024 19:55:47 16 6-20 (mg/dL) Final Creatinine 02/16/2024 19:55:47 1.1 0.6-1.2 (mg/dL) Final Glomerular filtration rate/1.73 sq M.predicted [Volume Rate/Area] in Serum, Plasma or Blood by Creatinine-based formula (CKD-EPI) 02/16/2024 19:55:47 75 >=60 (mL/min) Final eGFR is calculated based on the CKD-EPI 2020 equation. Sodium 02/16/2024 19:55:47 141 135-146 (m mol/L) Final Potassium 02/16/2024 19:55:47 4.0 3.5-5.1 (m mol/L) Final Cl 02/16/2024 19:55:47 102 98-107 (mm ol/L) Final CO2 02/16/2024 19:55:47 24 22-32 (mmo l/L) Final Anion gap 02/16/2024 19:55:47 15 7-15 (mmol /L) Final Glucose 02/16/2024 19:55:47 151 Above high normal 70 -120 (mg/dL) Final Calcium 02/16/2024 19:55:47 9.1 8.4-10.2 ( mg/dL) Final Performing Location LABORATORY [facility] [place] - [address] [place] [address]
--- OUTSIDE RECORDS SUMMARY | 2024-05-23 05:41 | External Medical Summary ---
Author Name Unknown Address Unknown Organization K01:LABORATORY [facility] - [address] [place] [address] Laboratory Report Ordering Provider Test Date Status GUSTAVO ESCOTO 02/18/2024 03:58:11 Final Observation Date Value Abnormality Reference (Units ) Status Magnesium 02/18/2024 03:58:11 2.5 1.5-2.6 (m g/dL) Final Performing Location LABORATORY [facility] - [address] [place] [address]
--- OUTSIDE RECORDS SUMMARY | 2024-05-23 05:41 | External Medical Summary ---
Author Name Unknown Address Unknown Organization K01:[place] [facility] [place] [address] [place] [address] Laboratory Report Ordering Provider Test Date Status GUSTAVO ESCOTO 02/18/2024 03:58:11 Final Stop Collection after Bigg kern is removed Observation Date Value Abnormality Reference (Units ) Status Oxygen saturation in Venous blood 02/18/2024 03:58:11 54.5 40.0-85.0 (%) Final Performing Location [place] [facility] [place] [address] [place] [address]
--- OUTSIDE RECORDS SUMMARY | 2024-05-23 05:41 | External Medical Summary ---
Author Name Unknown Address Unknown Organization K01:[place] [facility] [place] [address] [facility] [address] Laboratory Report Ordering Provider Test Date Status GUSTAVO ESCOTO 02/16/2024 20:00:19 Final Observation Date Value Abnormality Reference (Units ) Status Body temperature 02/16/2024 20:00:19 37.0 (C) Final pH of Arterial blood 02/16/2024 20:00:19 7.371 7.350-7.450 (units) Final Carbon dioxide [Partial pressure] in Arterial blood 02/16/2024 20:00:19 44.5 35.0-45.0 (mmHg) Final Oxygen [Partial pressure] in Arterial blood 02/16/2024 20:00:19 156.0 Above high normal 75.0-100.0 (mmHg) Final Base excess, Arterial 02/16/2024 20:00:19 0.4 -2.0-2.0 (mmol/L) Final Hemoglobin [Mass/volume] in Blood by Oximetry 02/16/2024 20:00:19 7.4 Below low normal 14.0-16.8 (g/dL) Final Oxyhemoglobin, Arterial (FO2HB) 02/16/2024 20:00:19 95.9 94.0-99.0 (% total Hgb) Final Carboxyhemoglobin 02/16/2024 20:00:19 1.6 Above high normal <=1.5 (% total Hgb) Final Smokers: 0-9.0 % Methemoglobin 02/16/2024 20:00:19 1.9 Above high normal <=1.5 (% total Hgb) Final Deoxyhemoglobin/Hemog lobin.total in Arterial blood 02/16/2024 20:00:19 0.6 0.0-5.0 (% total Hgb) Final Oxygen content in Arterial blood 02/16/2024 20:00:19 10.3 Below low normal 15.0-24.0 (%vol) Final Potassium, Whole Blood 02/16/2024 20:00:19 4.0 3.5-5.1 (mmol/L) Final Sodium, Whole Blood 02/16/2024 20:00:19 142 135-146 (mmol/L) Final Chloride, Whole Blood 02/16/2024 20:00:19 104 98-107 (mmol/L) Final Calcium.ionized [Moles/volume] in Blood by Ion-selective membrane electrode (ISE) 02/16/2024 20:00:19 1.19 1.13-1.32 (mmol/L) Final Anion gap, Whole Blood 02/16/2024 20:00:19 13.1 7.0-15.0 (mmol/L) Final Glucose, whole blood 02/16/2024 20:00:19 145 Above high normal 70-120 (mg/dL) Final Oxygen/Total gas setting [Volume Fraction] Ventilator 02/16/2024 20:00:19 Not Provided (%) Final O2 FLOW, ARTERIAL - [facility] 02/16/2024 20:00:19 Not Provided (L/min) Final Bicarbonate, Venous, POC (i-STAT) 02/16/2024 20:00:19 25.2 23.0-31.0 (mmol/L) Final Performing Location LAB[facility] [facility] [place] [address] [facility] [address]
--- OUTSIDE RECORDS SUMMARY | 2024-05-23 05:41 | External Medical Summary ---
Author Name Unknown Address Unknown Organization K01:[place] [facility] [place] [address] [facility] [address] Laboratory Report Ordering Provider Test Date Status GUSTAVO ESCOTO 02/17/2024 04:00:51 Final Observation Date Value Abnormality Reference (Units ) Status Body temperature 02/17/2024 04:00:51 37.0 (C) Final pH of Arterial blood 02/17/2024 04:00:51 7.398 7.350-7.450 (units) Final Carbon dioxide [Partial pressure] in Arterial blood 02/17/2024 04:00:51 44.4 35.0-45.0 (mmHg) Final Oxygen [Partial pressure] in Arterial blood 02/17/2024 04:00:51 143.0 Above high normal 75.0-100.0 (mmHg) Final Base excess, Arterial 02/17/2024 04:00:51 2.2 Above high normal -2.0-2.0 (mmol/L) Final Hemoglobin [Mass/volume] in Blood by Oximetry 02/17/2024 04:00:51 8.2 Below low normal 14.0-16.8 (g/dL) Final Oxyhemoglobin, Arterial (FO2HB) 02/17/2024 04:00:51 97.3 94.0-99.0 (% total Hgb) Final Carboxyhemoglobin 02/17/2024 04:00:51 1.5 <=1.5 (% total Hgb) Final Smokers: 0-9.0 % Methemoglobin 02/17/2024 04:00:51 0.8 <=1.5 (% total Hgb) Final Deoxyhemoglobin/Hemog lobin.total in Arterial blood 02/17/2024 04:00:51 0.4 0.0-5.0 (% total Hgb) Final Oxygen content in Arterial blood 02/17/2024 04:00:51 11.6 Below low normal 15.0-24.0 (%vol) Final Potassium, Whole Blood 02/17/2024 04:00:51 4.5 3.5-5.1 (mmol/L) Final Sodium, Whole Blood 02/17/2024 04:00:51 142 135-146 (mmol/L) Final Chloride, Whole Blood 02/17/2024 04:00:51 105 98-107 (mmol/L) Final Calcium.ionized [Moles/volume] in Blood by Ion-selective membrane electrode (ISE) 02/17/2024 04:00:51 1.20 1.13-1.32 (mmol/L) Final Anion gap, Whole Blood 02/17/2024 04:00:51 9.5 7.0-15.0 (mmol/L) Final Glucose, whole blood 02/17/2024 04:00:51 116 70-120 (mg/dL) Final Oxygen/Total gas setting [Volume Fraction] Ventilator 02/17/2024 04:00:51 Not Provided (%) Final O2 FLOW, ARTERIAL - [facility] 02/17/2024 04:00:51 6 (L/min) Final Bicarbonate, Venous, POC (i-STAT) 02/17/2024 04:00:51 26.8 23.0-31.0 (mmol/L) Final Performing Location [place] [facility] [place] [address] [facility] [address]
--- OUTSIDE RECORDS SUMMARY | 2024-05-23 05:41 | External Medical Summary ---
Author Name Unknown Address Unknown Organization : Laboratory Report Ordering Provider Test Date Status SULMA LEE 02/17/2024 02:03:57 Final Observation Date Value Abnormality Reference (Units ) Status Glucose Point of Care 02/17/2024 02:03:57 106 70-120 (mg/dL) Final Performing Location
--- OUTSIDE RECORDS SUMMARY | 2024-05-23 05:41 | External Medical Summary ---
Author Name Unknown Address Unknown Organization K01:[facility]ORY [facility] [place] [address] [facility] [place] [address] Laboratory Report Ordering Provider Test Date Status GUSTAVO ESCOTO 02/17/2024 03:59:45 Final Observation Date Value Abnormality Reference (Units ) Status SYNC LEUKOCYTES IN BLOOD BY AUTOMATED COUNT 02/17/2024 03:59:45 10.67 4.00-10.80 (K/uL) Final Segs 02/17/2024 03:59:45 77.0 Above high normal 40.0-75.0 (%) Final Lymphs % 02/17/2024 03:59:45 8.6 Below low normal 18.0-42.0 (%) Final Monos 02/17/2024 03:59:45 13.7 Above high normal 1.0-11.0 (%) Final Eosinophils 02/17/2024 03:59:45 0.0 0.0-6.0 (%) Final Basos 02/17/2024 03:59:45 0.2 0.0-2.0 (%) Final Immature Granulocyte, Percent 02/17/2024 03:59:45 0.5 0.0-2.0 (%) Final Absolute Segs 02/17/2024 03:59:45 8.22 Above high normal 1.80-7.70 (K/uL) Final Lymphs, absolute 02/17/2024 03:59:45 0.92 Below low normal 1.00-4.80 (K/ul) Final Monos, Abs 02/17/2024 03:59:45 1.46 Above high normal 0.00-1.10 (K/uL) Final Eos, Abs 02/17/2024 03:59:45 0.00 0.00-0.70 (K/uL) Final Basos, Abs 02/17/2024 03:59:45 0.02 0.00-0.20 (K/uL) Final Immature Granulocytes, Number 02/17/2024 03:59:45 0.05 0.00-0.20 (K/uL) Final Performing Location [facility] [place] [facility] [address] [facility] [address]
--- OUTSIDE RECORDS SUMMARY | 2024-05-23 05:41 | External Medical Summary ---
Author Name Unknown Address Unknown Organization K01:[facility] [place] [address] [place] [address] Laboratory Report Ordering Provider Test Date Status ADY WEST 02/19/2024 05:00:00 Final Warfarin Therapy
INR: 2 .0-3.0 conventional anticoagulation
INR: 2.5- 3.5 high intensity anticoagulation Observation Date Value Abnormality Reference (Units ) Status PT 02/19/2024 05:00:00 17.6 Above high normal 11 .6-15.2 (seconds) Final INR 02/19/2024 05:00:00 1.4 Above high normal 0. 8-1.2 Final Performing Location [facility] [place] [address] [place] [address]
--- OUTSIDE RECORDS SUMMARY | 2024-05-23 05:41 | External Medical Summary | Summary of Care ---
Author Name Unknown Organization [facility] Address [address] [place] [address] Phone [phone] Care Team Providers Care Director Marketing Name Role Phone Rashawn Obrien MD Primary Care Provider Reason for Visit * Auth/Cert Specialty Diagnoses / Procedures Referred By Claudia t Referred To Contact Diagnoses A.S., angina Jhradha, Eladio Hardy MD [address] [place] [address] Phone: tel: fax: [facility], [facility] [address] [place] [address] Referral ID Status Reason Start Date Expiration Date Visits Re quested Visits Authorized [id number] Encounter Details Date Type Department Care Team (Latest Contact Info) Description 02/16/2024 1:05 PM EST - 02/16/2024 11:59 PM EST Hospital Encounter Cardiac Studies [facility] [address] [place] [address] Discharge Disposition: Home - Self [...] Diagnosed Date Coronary artery disease invo lving [place] coronary artery of [place] heart with unstable angina pectoris 02/15/2024 Aortic [...] mRNA, LNP-s, No Pre serve, 2-Dose Series ([place]) 05/17/2020,04/17/2020 Pneumococcal Conjugate Vacc, 13 Valent (Prevnar) [...] 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 Not [...] Description 05/06/2024 8:20 AM EST Office Visit [facility] Heather [address]aut[address] [phone] Rashawn Obrien MD [address] [address] 06/17/2024 7:15 AM EDT Cardiac Studies [facility] [address] 07/05/2024 8:00 AM EDT Office Visit Cardiology, [facility] [address] [facility] [place] [address] Idalmis Mccrary CRNP [address] [facility] [place] [address] Scheduled Procedures Name Priority Associated Diagnoses Date/Ti [...] this encounter Medical Devices Implanted Type Area Bookmobile Clerk Device Identifier Shelf Expiration Date Model / Serial / Lot Suture Steel 6 B&S19 M654g - [id number] Implanted:Qty: 7 on 02/16/2024 by Bill Kang MD at OR [facility] N/A: Sternum JNJ : [employer] 11/06/2028 M654G / / [id number] Clip Atrial Penditure 45mm - [id number] Implanted:Qty: 1 on 02/16/2024 by Bill Kang MD at OR [facility] N/A: Heart [employer] : CRM [id number] 05/27/2024 RICHIE C45 / / [id number] Valve Pericardial 25mm - [id number] - [id number] Implanted:Qty: 1 on 02/16/2024 by Bill Kang MD at OR [facility] N/A: Heart [employer] SOL[employer] [id number] 07/05/2027 [id number] MM / [id number] / [id number] Marker Coronary - [id number] Implanted:Qty: 2 on 02/16/2024 by Bill Kang MD at OR [facility] N/A: Aorta [employer] 12/06/2026 [facility] / / [id number] documented as of this encounter Procedures Procedure Name Priority Date/Time Associated Diagnosis Comments HC DOPPLER ECHO COMPLETE Routine 02/16/2024 1:12 PM EST Valvular heart disease documented in this encounter Results * CV ECHO, THANH INTRAOPERATIVE (02/16/2024 1:12 PM EST) LEFT VENTRICULAR EJECTION FRACTION 55 % [facility] 02/16/2024 11:4 9 AM EST us Haylie Venu [facility] Final Result Performing Organization Address City/State/ZIP Co ok Phone Number [facility] documented in this encounter Advance Directives * Full Code (Latest Code Status on File) Date Activated Date Inactivated Comments 02/16/2024 2:06 PM This order r eflects the patients wishes and were consensually agreed upon. Question Answer Comments Discussion of Advance Directives occurred with: Patient * Full Code Date Activated Date Inactivated Comments 02/13/2024 7:20 PM 02/16/2024 2:06 PM This order reflects the patients wishes and were consensually agreed upon. Question Answer Comments Discussion of Advance Directives occurred with: Patient Care Teams Director Marketing Relationship Specialty Start Date End Date Rashawn Obrien MD [address] [place] [address] PCP - General 05/26/07 documented as of this encounter
--- OUTSIDE RECORDS SUMMARY | 2024-05-23 05:41 | External Medical Summary ---
Author Name Unknown Address Unknown Organization K01:[place] [facility] [place] [address] [facility] [address] Laboratory Report Ordering Provider Test Date Status GUSTAVO ESCOTO 02/18/2024 03:58:11 Final Observation Date Value Abnormality Reference (Units ) Status SYNC LEUKOCYTES IN BLOOD BY AUTOMATED COUNT 02/18/2024 03:58:11 16.55 Above high normal 4.00-10.80 (K/uL) Final Segs 02/18/2024 03:58:11 74.1 40.0-75.0 (%) Final Lymphs % 02/18/2024 03:58:11 9.2 Below low normal 18.0-42.0 (%) Final Monos 02/18/2024 03:58:11 15.3 Above high normal 1.0-11.0 (%) Final Eosinophils 02/18/2024 03:58:11 0.2 0.0-6.0 (%) Final Basos 02/18/2024 03:58:11 0.2 0.0-2.0 (%) Final Immature Granulocyte, Percent 02/18/2024 03:58:11 1.0 0.0-2.0 (%) Final Absolute Segs 02/18/2024 03:58:11 12.28 Above high normal 1.80-7.70 (K/uL) Final Lymphs, absolute 02/18/2024 03:58:11 1.52 1.00-4.80 (K/ul) Final Monos, Abs 02/18/2024 03:58:11 2.53 Above high normal 0.00-1.10 (K/uL) Final Eos, Abs 02/18/2024 03:58:11 0.03 0.00-0.70 (K/uL) Final Basos, Abs 02/18/2024 03:58:11 0.03 0.00-0.20 (K/uL) Final Immature Granulocytes, Number 02/18/2024 03:58:11 0.16 0.00-0.20 (K/uL) Final Performing Location [place] [facility] [place] [facility] [place] [address]
--- OUTSIDE RECORDS SUMMARY | 2024-05-23 05:41 | External Medical Summary | Summary of Care ---
Author Name Unknown Organization [facility] Address [address] [place] [address] Phone [phone] Care Team Providers Care Manager Financial Planning Name Role Phone Rashawn Obrien MD Primary Care Provider [phone] Reason for Visit * Reason Comments Referral * Evaluate & Treat - Unlimited Visits (Within 3 days (urgent)) - Authorized Specialty Diagnoses / Procedures Referred By Contac t Referred To Contact ANTI-COAG CLINIC / Pharmacy Diagnoses S/P CABG x 3 S/P AVR (aortic valve replacement) Paroxysmal atrial fibrillation (HCC) Haylie Lea CRNP [address] [place] [address] Phone: tel: fax: Referral ID Status Reason Start Date Expiration Date Visits Requested Visits Authorized [id number] Authorized Specialty Services Required 4 08/15/2024 99 99 Encounter Details Date Type Department Care Team (Latest Contact Info) Description 02/18/2024 5:10 PM EST Anticoagulation Pharmacy, [address] [facility] [phone] [facility] [address] [place] [address] Paroxysmal atrial fibrillation (HCC)*; S/P AVR (aortic [...] 3 02/17/2024 Coronary artery disease invo [place]ving [place] coronary artery of [place] heart with unstable angina pectoris 02/15/2024 [...] Industry Job Start Date Job End Date [employer] Not on file Not on file Not [...] this encounter Progress Notes * Rhoda Alexander, [facility] - 02/18/2024 9:46 AM EST Medication Therapy Disease Management - [...] to eliquis Enoxaparin bridging required? No Pt just recently transitioned to Eliquis on 01/22/24 (Previous warfarin dose: 2.5 mg every Tue, Sat; 5 mg all other days.). Pt presented to [facility] ER on 02/08 with chest pain, arm tingling etc. Transfer[place] [facility]. Underwent CABG x3 on 02/16/24. Per CM note, from yesterday, patient declines home health services at discharge. Coumadin to be started today. No note yet on discharge. Follow up tomorrow to check status. Rhoda Alexander [facility] Clinical Pharmacist 02/18/2024, 9:46 AM documented in this encounter Plan of Treatment Upcoming Encounters Date Type Department Care Team (Late st Contact Info) Description 02/19/2024 5:10 PM EST Anticoagulation Pharmacy, [address] [facility] [address] [place] [phone] [facility] [address] [place], [place] [address] [address] 05/06/2024 8:20 AM EST Office Visit Family [facility], [address] [facility] [place] [phone] Rashawn Obrien MD [address] [facility] [place] [address] 06/17/2024 7:15 AM EDT Cardiac Studies Cardiac Studies, [facility] 132 [facility] [place] [address] 07/05/2024 8:00 AM EDT Office Visit Cardiology, [facility] [address] [facility] [place] [address] Idalmis Mccrary CRNP [address] [place] [address] Scheduled Procedures Name Priority Associated Diagnoses Date/Ti me COLONOSCOPY FLEXIBLE PROXIMAL DIAGNOSTIC Recall History of colon polyps Scheduled Referrals Name Type Priority Associated Diagnoses Orde r Schedule ANTI-COAGULATION REFERRAL OP Referral Within 3 days [...] this encounter Medical Devices Implanted Type Area Director Fixed Income Device Identifier Shelf Expiration Date Model / Serial / Lot Suture Steel 6 B&S19 M654g - [id number] Implanted:Qty: 7 on 02/16/2024 by Bill Kang MD at [place] [facility] [place] N/A: Sternum JNJ : [employer] 11/06/2028 M654G / / [id number] Clip Atrial Penditure 45mm - [id number] Implanted:Qty: 1 on 02/16/2024 by Bill Kang MD at [place] [facility] [place] N/A: Heart [employer] : CRM [id number] 05/27/2024 RICHIE C45 / / [id number] Valve Pericardial 25mm - [id number] - [id number] Implanted:Qty: 1 on 02/16/2024 by Bill Kang MD at [place] [facility] [place] N/A: Heart [employer] [id number] 07/05/2027 [id number] MM / [id number] / [id number] Marker Coronary - [id number] Implanted:Qty: 2 on 02/16/2024 by Bill Kang MD at [place] [facility] N/A: Aorta [employer] 12/06/2026 [facility] / / [id number] documented as of this encounter Visit Diagnoses Diagnosis Paroxysmal atrial fibrillation (HCC)- Primary Atrial fibrillation S/P AVR (aortic valve replacement) [...] Advance Directives occurred with: Patient Care Teams Manager Financial Planning Relationship Specialty Start Date End Date Rashawn Obrien MD [address] [address] PCP - General 05/26/07 documented as of this encounter"
--- OUTSIDE RECORDS SUMMARY | 2024-05-23 05:41 | External Medical Summary ---
Author Name Unknown Address Unknown Organization K01:[place] [facility] [place] [address] [place] [address] Laboratory Report Ordering Provider Test Date Status ADY WEST 02/17/2024 04:59:06 Final Observation Date Value Abnormality Reference (Units ) Status Oxygen saturation in Venous blood 02/17/2024 04:59:06 42.6 40.0-85.0 (%) Final Performing Location LABORATORY [facility] - [address] [place] [address]
--- OUTSIDE RECORDS SUMMARY | 2024-05-23 05:41 | External Medical Summary ---
Author Name Unknown Address Unknown Organization K01:[facility]ORY [facility] [place] [address] [place] [address] Laboratory Report Ordering Provider Test Date Status GUSTAVO ESCOTO 02/19/2024 05:00:00 Final Observation Date Value Abnormality Reference (Units ) Status BUN 02/19/2024 05:00:00 27 Above high normal 6-20 (mg/dL) Final Creatinine 02/19/2024 05:00:00 1.0 0.6-1.2 (mg/dL) Final Glomerular filtration rate/1.73 sq M.predicted [Volume Rate/Area] in Serum, Plasma or Blood by Creatinine-based formula (CKD-EPI) 02/19/2024 05:00:00 79 >=60 (mL/min) Final eGFR is calculated based on the CKD-EPI 2020 equation. Sodium 02/19/2024 05:00:00 137 135-146 (m mol/L) Final Potassium 02/19/2024 05:00:00 4.7 3.5-5.1 (m mol/L) Final Cl 02/19/2024 05:00:00 101 98-107 (mm ol/L) Final CO2 02/19/2024 05:00:00 25 22-32 (mmo l/L) Final Anion gap 02/19/2024 05:00:00 11 7-15 (mmol /L) Final Glucose 02/19/2024 05:00:00 118 70-120 (mg /dL) Final Calcium 02/19/2024 05:00:00 9.5 8.4-10.2 ( mg/dL) Final Performing Location [facility]ORY [facility] [place] [address] [place] [address]
--- OUTSIDE RECORDS SUMMARY | 2024-05-23 05:41 | External Medical Summary ---
Author Name Unknown Address Unknown Organization K01:[place] [facility] [place] [address] [facility] [address] Laboratory Report Ordering Provider Test Date Status GUSTAVO ESCOTO 02/19/2024 05:00:00 Final Observation Date Value Abnormality Reference (Units ) Status SYNC LEUKOCYTES IN BLOOD BY AUTOMATED COUNT 02/19/2024 05:00:00 15.98 Above high normal 4.00-10.80 (K/uL) Final Segs 02/19/2024 05:00:00 72.5 40.0-75.0 (%) Final Lymphs % 02/19/2024 05:00:00 11.8 Below low normal 18.0-42.0 (%) Final Monos 02/19/2024 05:00:00 13.3 Above high normal 1.0-11.0 (%) Final Eosinophils 02/19/2024 05:00:00 0.4 0.0-6.0 (%) Final Basos 02/19/2024 05:00:00 0.3 0.0-2.0 (%) Final Immature Granulocyte, Percent 02/19/2024 05:00:00 1.7 0.0-2.0 (%) Final Absolute Segs 02/19/2024 05:00:00 11.61 Above high normal 1.80-7.70 (K/uL) Final Lymphs, absolute 02/19/2024 05:00:00 1.88 1.00-4.80 (K/ul) Final Monos, Abs 02/19/2024 05:00:00 2.12 Above high normal 0.00-1.10 (K/uL) Final Eos, Abs 02/19/2024 05:00:00 0.06 0.00-0.70 (K/uL) Final Basos, Abs 02/19/2024 05:00:00 0.04 0.00-0.20 (K/uL) Final Immature Granulocytes, Number 02/19/2024 05:00:00 0.27 Above high normal 0.00-0.20 (K/uL) Final Performing Location [place] [facility] [place] [address] [facility] [address]
--- OUTSIDE RECORDS SUMMARY | 2024-05-23 05:41 | External Medical Summary ---
Author Name Unknown Address Unknown Organization K01:[place] [facility] [place] [address] [place] [address] Laboratory Report Ordering Provider Test Date Status TREMAINE POLANCO 02/17/2024 11:59:05 Final Observation Date Value Abnormality Reference (Units ) Status Oxygen saturation in Venous blood 02/17/2024 11:59:05 41.0 40.0-85.0 (%) Final Performing Location LABORATORY [facility] - [address] [place] [address]
--- OUTSIDE RECORDS SUMMARY | 2024-05-23 05:41 | External Medical Summary ---
Author Name Unknown Address Unknown Organization K01:LABORATORY [facility] - [address] [place] [address] Laboratory Report Ordering Provider Test Date Status GUSTAVO ESCOTO 02/17/2024 03:59:45 Final Observation Date Value Abnormality Reference (Units ) Status Magnesium 02/17/2024 03:59:45 2.6 1.5-2.6 (m g/dL) Final Performing Location LABORATORY [facility] - [address] [place] [address]
--- OUTSIDE RECORDS SUMMARY | 2024-05-23 05:41 | External Medical Summary ---
Author Name Unknown Address Unknown Organization K01:[facility]ORY [facility] [place] [facility] [place] [address] Laboratory Report Ordering Provider Test Date Status TREMAINE POLANCO 02/17/2024 11:59:05 Final Observation Date Value Abnormality Reference (Units ) Status WBC, Total 02/17/2024 11:59:05 16.50 Above high normal 4.00-10.80 (K/uL) Final RBC 02/17/2024 11:59:05 3.38 4.50-5.25 (M/uL) Final Hemoglobin 02/17/2024 11:59:05 9.1 Below low normal 14.0-16.8 (g/dL) Final HCT 02/17/2024 11:59:05 29.7 Below low normal 40.0-48.4 (%) Final MCV 02/17/2024 11:59:05 87.9 82.0-99.5 (fL) Final MCH 02/17/2024 11:59:05 26.9 27.0-34.0 (pg) Final MCHC 02/17/2024 11:59:05 30.6 32.0-36.0 (g/dL) Final RDW 02/17/2024 11:59:05 16.6 11.5-15.5 (%) Final Platelets 02/17/2024 11:59:05 116 Below low normal 140-400 (K/uL) Final MPV 02/17/2024 11:59:05 11.3 6.6-11.1 (fL) Final Nucleated erythrocytes/100 leukocytes [Ratio] in Blood by Automated count 02/17/2024 11:59:05 0 <=0 (/100 WBCs) Final Performing Location LABORATORY [facility] [place] - [address] [facility] [address]
--- OUTSIDE RECORDS SUMMARY | 2024-05-23 05:42 | External Medical Summary ---
Author Name Unknown Address Unknown Organization K01:LABORATORY [place] [address] [facility] [address] [facility] [address] Laboratory Report Ordering Provider Test Date Status GUSTAVO ESCOTO 02/16/2024 14:24:24 Final Observation Date Value Abnormality Reference (Units ) Status Clot formation [Time] in Blood by Thromboelastography 02/16/2024 14:24:24 4.7 2.5-8.3 (minutes) Final Clot strength in Blood by Thromboelastography 02/16/2024 14:24:24 1.8 0.5-3.7 (minutes) Final Clot angle in Blood by Thromboelastography 02/16/2024 14:24:24 66.4 46.8-78.4 (degrees) Final Maximum clot firmness [Length] in Blood by Thromboelastography 02/16/2024 14:24:24 61.0 50.6-72.5 (mm) Final This is an appended report. These results have been appended to a previously preliminary verified report. Coagulation index in Blood b y Thromboelastography 02/16/2024 14:24:24 1.0 -3.0-3.0 F inal This is an appended report. These results have been appended to a previously preliminary verified report. Clot Lysis [Length fraction] in Blood by Thromboelastography --30 minutes post maximum clot amplitude 02/16/2024 14:24:24 0.6 0.0-7.5 (%) Final This is an appended report. These results have been appended to a previously preliminary verified report. Performing Location LABORATORY [place] [address] [facility] [address] [facility] [address]
--- OUTSIDE RECORDS SUMMARY | 2024-05-23 05:42 | External Medical Summary ---
Author Name Unknown Address Unknown Organization : Laboratory Report Ordering Provider Test Date Status SULMA LEE 02/16/2024 08:35:51 Final Observation Date Value Abnormality Reference (Units ) Status Blood draw [PhenX] 02/16/2024 08:35:51 Venous Final pH, POC (i-STAT) 02/16/2024 08:35:51 7.341 Below low normal 7.350-7.450 Final PCO2 POC (i-STAT) 02/16/2024 08:35:51 47.2 Above high normal 35.0-45.0 (mm Hg) Final PO2 POC (i-STAT) 02/16/2024 08:35:51 292 Above high normal 75-100 (mm Hg) Final Base excess standard in Arterial blood by calculation 02/16/2024 08:35:51 -1 -2-2 (mmol/L) Final Bicarbonate, Venous, POC (i-STAT) 02/16/2024 08:35:51 25.5 23.0-31.0 (mmol/L) Final O2 Sat, calculated POC (i-STAT) 02/16/2024 08:35:51 100.0 Above high normal 94.0-98.0 (%) Final Glucose, whole blood 02/16/2024 08:35:51 111 70-120 (mg/dL) Final Potassium, Whole Blood 02/16/2024 08:35:51 4.0 3.5-5.1 (mmol/L) Final Sodium, Whole Blood 02/16/2024 08:35:51 137 135-146 (mmol/L) Final Calcium, Ionized, Whole Blood 02/16/2024 08:35:51 1.14 1.13-1.32 (mmol/L) Final Hemoglobin POC (i-STAT) 02/16/2024 08:35:51 12.9 Below low normal 14.0-16.8 (g/dL) Final HCT 02/16/2024 08:35:51 38 Below low normal 40-48 (%) Final Performing Location
--- OUTSIDE RECORDS SUMMARY | 2024-05-23 05:42 | External Medical Summary ---
Author Name Unknown Address Unknown Organization : Laboratory Report Ordering Provider Test Date Status SULMA LEE 02/16/2024 09:43:21 Final NORMAL (NON-HEPARINIZED) 74- 137 SECONDS
HEPARINIZED 200+ SECONDS
CRITICAL GREATER THAN 1000 SECONDS
null Observation Date Value Abnormality Reference (Units ) Status Kaolin activated time [Units/volume] in Blood 02/16/2024 09:43:21 464 50-1000 (secs) Final Performing Location
--- OUTSIDE RECORDS SUMMARY | 2024-05-23 05:42 | External Medical Summary ---
Author Name Unknown Address Unknown Organization : Laboratory Report Ordering Provider Test Date Status SULMA LEE 02/16/2024 17:58:21 Final Observation Date Value Abnormality Reference (Units ) Status Glucose Point of Care 02/16/2024 17:58:21 133 Above high normal 70-120 (mg/dL) Final Performing Location
--- OUTSIDE RECORDS SUMMARY | 2024-05-23 05:42 | External Medical Summary ---
Author Name Unknown Address Unknown Organization : Laboratory Report Ordering Provider Test Date Status SULMA LEE 02/16/2024 08:24:58 Final Observation Date Value Abnormality Reference (Units) Status Blood draw [PhenX] 02/16/2024 08:24:58 Arterial Draw Final pH, POC (i-STAT) 02/16/2024 08:24:58 7.337 Below low normal 7.350-7.450 Final PCO2 POC (i-STAT) 02/16/2024 08:24:58 49.8 Above high normal 35.0-45.0 (mm Hg) Final PO2 POC (i-STAT) 02/16/2024 08:24:58 546 Above high normal 75-100 (mm Hg) Final Base excess standard in Arterial blood by calculation 02/16/2024 08:24:58 0 -2-2 (mmol/L) Final Bicarbonate, Venous, POC (i-STAT) 02/16/2024 08:24:58 26.7 23.0-31.0 (mmol/L) Final O2 Sat, calculated POC (i-STAT) 02/16/2024 08:24:58 100.0 Above high normal 94.0-98.0 (%) Final Glucose, whole blood 02/16/2024 08:24:58 104 70-120 (mg/dL) Final Potassium, Whole Blood 02/16/2024 08:24:58 4.1 3.5-5.1 (mmol/L) Final Sodium, Whole Blood 02/16/2024 08:24:58 139 135-146 (mmol/L) Final Calcium, Ionized, Whole Blood 02/16/2024 08:24:58 1.15 1.13-1.32 (mmol/L) Final Hemoglobin POC (i-STAT) 02/16/2024 08:24:58 13.3 Below low normal 14.0-16.8 (g/dL) Final HCT 02/16/2024 08:24:58 39 Below low normal 40-48 (%) Final Performing Location
--- OUTSIDE RECORDS SUMMARY | 2024-05-23 05:42 | External Medical Summary ---
Author Name Unknown Address Unknown Organization : Laboratory Report Ordering Provider Test Date Status SULMA LEE 02/16/2024 14:16:19 Final Observation Date Value Abnormality Reference (Units ) Status Glucose Point of Care 02/16/2024 14:16:19 146 Above high normal 70-120 (mg/dL) Final Performing Location
--- OUTSIDE RECORDS SUMMARY | 2024-05-23 05:42 | External Medical Summary ---
Author Name Unknown Address Unknown Organization : Laboratory Report Ordering Provider Test Date Status SULMA LEE 02/16/2024 09:30:46 Final NORMAL (NON-HEPARINIZED) 74- 137 SECONDS
HEPARINIZED 200+ SECONDS
CRITICAL GREATER THAN 1000 SECONDS
null Observation Date Value Abnormality Reference (Units ) Status Kaolin activated time [Units/volume] in Blood 02/16/2024 09:30:46 544 50-1000 (secs) Final Performing Location
--- OUTSIDE RECORDS SUMMARY | 2024-05-23 05:42 | External Medical Summary ---
Author Name Unknown Address Unknown Organization : Laboratory Report Ordering Provider Test Date Status SULMA LEE 02/16/2024 12:24:25 Final Observation Date Value Abnormality Reference (Units) Status Blood draw [PhenX] 02/16/2024 12:24:25 Arterial Draw Final pH, POC (i-STAT) 02/16/2024 12:24:25 7.419 7.350-7.450 Final PCO2 POC (i-STAT) 02/16/2024 12:24:25 39.6 35.0-45.0 (mm Hg) Final PO2 POC (i-STAT) 02/16/2024 12:24:25 76 75-100 (mm Hg) Final Base excess standard in Arterial blood by calculation 02/16/2024 12:24:25 1 -2-2 (mmol/L) Final Bicarbonate, Venous, POC (i-STAT) 02/16/2024 12:24:25 25.6 23.0-31.0 (mmol/L) Final O2 Sat, calculated POC (i-STAT) 02/16/2024 12:24:25 95.0 94.0-98.0 (%) Final Glucose, whole blood 02/16/2024 12:24:25 153 Above high normal 70-120 (mg/dL) Final Potassium, Whole Blood 02/16/2024 12:24:25 4.9 3.5-5.1 (mmol/L) Final Sodium, Whole Blood 02/16/2024 12:24:25 137 135-146 (mmol/L) Final Calcium, Ionized, Whole Blood 02/16/2024 12:24:25 1.08 Below low normal 1.13-1.32 (mmol/L) Final Hemoglobin POC (i-STAT) 02/16/2024 12:24:25 11.6 Below low normal 14.0-16.8 (g/dL) Final HCT 02/16/2024 12:24:25 34 Below low normal 40-48 (%) Final Performing Location
--- OUTSIDE RECORDS SUMMARY | 2024-05-23 05:42 | External Medical Summary ---
Author Name Unknown Address Unknown Organization K01:LABORATORY [place] [address] [facility] [address] [place] [address] Laboratory Report Ordering Provider Test Date Status ROSASULMA 02/16/2024 09:57:00 Final If R time > 20 minutes and n o clot formed suggesting hypocoagulable state or interfering substance (anticoagulation). Consider resubmitting a new sample and/or checking PT/INR, aPTT, fibrinogen, and platelet count.
If R time > 20 minutes and no clot formed suggesting hypocoagulable state or interfering substance (anticoagulation). Consider resubmitting a new sample and/or checking PT/INR, aPTT, fibrinogen, and platelet count. Observation Date Value Abnormality Reference (Units) Status Clot formation [Time] in Blood by Thromboelastography 02/16/2024 09:57:00 >20.0 Above high normal 2.5-8.3 (minutes) Final Performing Location LAB[place] [facility] [place] [address] [place] [address]
--- OUTSIDE RECORDS SUMMARY | 2024-05-23 05:42 | External Medical Summary ---
Author Name Unknown Address Unknown Organization K01:LABORATORY [facility] [place] - [address] [facility] [address] Laboratory Report Ordering Provider Test Date Status GUSTAVO ESCOTO 02/16/2024 15:56:52 Final Observation Date Value Abnormality Reference (Units ) Status Body temperature 02/16/2024 15:56:52 37.0 (C) Final pH of Arterial blood 02/16/2024 15:56:52 7.466 Above high normal 7.350-7.450 (units) Final Carbon dioxide [Partial pressure] in Arterial blood 02/16/2024 15:56:52 35.5 35.0-45.0 (mmHg) Final Oxygen [Partial pressure] in Arterial blood 02/16/2024 15:56:52 223.0 Above high normal 75.0-100.0 (mmHg) Final Base excess, Arterial 02/16/2024 15:56:52 1.9 -2.0-2.0 (mmol/L) Final Hemoglobin [Mass/volume] in Blood by Oximetry 02/16/2024 15:56:52 7.7 Below low normal 14.0-16.8 (g/dL) Final Oxyhemoglobin, Arterial (FO2HB) 02/16/2024 15:56:52 97.7 94.0-99.0 (% total Hgb) Final Carboxyhemoglobin 02/16/2024 15:56:52 1.6 Above high normal <=1.5 (% total Hgb) Final Smokers: 0-9.0 % Methemoglobin 02/16/2024 15:56:52 0.8 <=1.5 (% total Hgb) Final Deoxyhemoglobin/Hemoglobin.t rotary screen printing machine operator l in Arterial blood 02/16/2024 15:56:52 0.0 0.0-5.0 (% tot al Hgb) Final Oxygen content in Arterial blood 02/16/2024 15:56:52 Final Not calculated.
Potassium, Whole Blood 02/16/2024 15:56:52 4.0 3.5-5.1 (mmol/L) Final Sodium, Whole Blood 02/16/2024 15:56:52 139 135-146 (mmol/L) Final Chloride, Whole Blood 02/16/2024 15:56:52 105 98-107 (mmol/L) Final Calcium.ionized [Moles/volume] in Blood by Ion-selective membrane electrode (ISE) 02/16/2024 15:56:52 1.32 1.13-1.32 (mmol/L) Final Anion gap, Whole Blood 02/16/2024 15:56:52 9.6 7.0-15.0 (mmol/L) Final Glucose, whole blood 02/16/2024 15:56:52 134 Above high normal 70-120 (mg/dL) Final Oxygen/Total gas setting [Volume Fraction] Ventilator 02/16/2024 15:56:52 50 (%) Final O2 FLOW, ARTERIAL - [facility] 02/16/2024 15:56:52 Not Provided (L/min) Final Bicarbonate, Venous, POC (i-STAT) 02/16/2024 15:56:52 25.2 23.0-31.0 (mmol/L) Final Performing Location LABORATORY [facility] [place] - [address] [facility] [address]
--- OUTSIDE RECORDS SUMMARY | 2024-05-23 05:42 | External Medical Summary ---
Author Name Unknown Address Unknown Organization : Laboratory Report Ordering Provider Test Date Status SULMA LEE 02/16/2024 11:10:14 Final NORMAL (NON-HEPARINIZED) 74- 137 SECONDS
HEPARINIZED 200+ SECONDS
CRITICAL GREATER THAN 1000 SECONDS
null Observation Date Value Abnormality Reference (Units ) Status Kaolin activated time [Units/volume] in Blood 02/16/2024 11:10:14 556 50-1000 (secs) Final Performing Location
--- OUTSIDE RECORDS SUMMARY | 2024-05-23 05:42 | External Medical Summary ---
Author Name Unknown Address Unknown Organization K01:[place] [facility] [place] [address] [facility] [address]. [facility] [address] Laboratory Report Ordering Provider Test Date Status DAVID CLEMENS 02/16/2024 12:21:08 Final Anticoagulation may affect t esting. Refer to [facility] Test Catalog for a list of effects. Observation Date Value Abnormality Reference (Units ) Status aPTT panel - Platelet poor plasma 02/16/2024 12:21:08 69 Above high normal 21-38 (seconds) Final Performing Location [place] [facility] [place] [address] [facility] [address]
--- OUTSIDE RECORDS SUMMARY | 2024-05-23 05:42 | External Medical Summary ---
Author Name Unknown Address Unknown Organization : Laboratory Report Ordering Provider Test Date Status SULMA LEE 02/16/2024 09:39:01 Final Observation Date Value Abnormality Reference (Units) Status Blood draw [PhenX] 02/16/2024 09:39:01 Arterial Draw Final pH, POC (i-STAT) 02/16/2024 09:39:01 7.356 7.350-7.450 Final PCO2 POC (i-STAT) 02/16/2024 09:39:01 45.5 Above high normal 35.0-45.0 (mm Hg) Final PO2 POC (i-STAT) 02/16/2024 09:39:01 253 Above high normal 75-100 (mm Hg) Final Base excess standard in Arterial blood by calculation 02/16/2024 09:39:01 0 -2-2 (mmol/L) Final Bicarbonate, Venous, POC (i-STAT) 02/16/2024 09:39:01 25.5 23.0-31.0 (mmol/L) Final O2 Sat, calculated POC (i-STAT) 02/16/2024 09:39:01 100.0 Above high normal 94.0-98.0 (%) Final Glucose, whole blood 02/16/2024 09:39:01 112 70-120 (mg/dL) Final Potassium, Whole Blood 02/16/2024 09:39:01 4.2 3.5-5.1 (mmol/L) Final Sodium, Whole Blood 02/16/2024 09:39:01 138 135-146 (mmol/L) Final Calcium, Ionized, Whole Blood 02/16/2024 09:39:01 1.10 Below low normal 1.13-1.32 (mmol/L) Final Hemoglobin POC (i-STAT) 02/16/2024 09:39:01 11.2 Below low normal 14.0-16.8 (g/dL) Final HCT 02/16/2024 09:39:01 33 Below low normal 40-48 (%) Final Performing Location
--- OUTSIDE RECORDS SUMMARY | 2024-05-23 05:42 | External Medical Summary ---
Author Name Unknown Address Unknown Organization : Laboratory Report Ordering Provider Test Date Status SULMA LEE 02/16/2024 11:42:10 Final NORMAL (NON-HEPARINIZED) 74- 137 SECONDS
HEPARINIZED 200+ SECONDS
CRITICAL GREATER THAN 1000 SECONDS
null Observation Date Value Abnormality Reference (Units ) Status Kaolin activated time [Units/volume] in Blood 02/16/2024 11:42:10 469 50-1000 (secs) Final Performing Location
--- OUTSIDE RECORDS SUMMARY | 2024-05-23 05:42 | External Medical Summary ---
Author Name Unknown Address Unknown Organization K01:LABORATORY [facility] [place] - [facility] [address] [facility] [address] [place] [address] Laboratory Report Ordering Provider Test Date Status GUSTAVO ESCOTO 02/16/2024 14:24:24 Final Observation Date Value Abnormality Reference (Units ) Status BUN 02/16/2024 14:24:24 14 6-20 (mg/dL) Final Creatinine 02/16/2024 14:24:24 0.9 0.6-1.2 (mg/dL) Final Glomerular filtration rate/1.73 sq M.predicted [Volume Rate/Area] in Serum, Plasma or Blood by Creatinine-based formula (CKD-EPI) 02/16/2024 14:24:24 89 >=60 (mL/min) Final eGFR is calculated based on the CKD-EPI 2020 equation. Sodium 02/16/2024 14:24:24 141 135-146 (m mol/L) Final Potassium 02/16/2024 14:24:24 4.5 3.5-5.1 (m mol/L) Final Cl 02/16/2024 14:24:24 101 98-107 (mm ol/L) Final CO2 02/16/2024 14:24:24 25 22-32 (mmo l/L) Final Anion gap 02/16/2024 14:24:24 15 7-15 (mmol /L) Final Glucose 02/16/2024 14:24:24 156 Above high normal 70 -120 (mg/dL) Final Calcium 02/16/2024 14:24:24 8.6 8.4-10.2 ( mg/dL) Final Performing Location LABORATORY [facility] [place] - [address] [place] [address]
--- OUTSIDE RECORDS SUMMARY | 2024-05-23 05:42 | External Medical Summary ---
Author Name Unknown Address Unknown Organization : Laboratory Report Ordering Provider Test Date Status SULMA LEE 02/16/2024 10:40:11 Final NORMAL (NON-HEPARINIZED) 74- 137 SECONDS
HEPARINIZED 200+ SECONDS
CRITICAL GREATER THAN 1000 SECONDS
null Observation Date Value Abnormality Reference (Units ) Status Kaolin activated time [Units/volume] in Blood 02/16/2024 10:40:11 504 50-1000 (secs) Final Performing Location
--- OUTSIDE RECORDS SUMMARY | 2024-05-23 05:42 | External Medical Summary ---
Author Name Unknown Address Unknown Organization : Laboratory Report Ordering Provider Test Date Status SULMA LEE 02/16/2024 08:50:47 Final Observation Date Value Abnormality Reference (Units ) Status Blood draw [PhenX] 02/16/2024 08:50:47 Venous Final pH, POC (i-STAT) 02/16/2024 08:50:47 7.110 Below lower panic limits 7.350-7.450 Final PCO2 POC (i-STAT) 02/16/2024 08:50:47 56.8 Above upper panic limits 35.0-45.0 (mm Hg) Final PO2 POC (i-STAT) 02/16/2024 08:50:47 43 Below lower panic limits 75-100 (mm Hg) Final Base excess standard in Arterial blood by calculation 02/16/2024 08:50:47 -11 Below low normal -2-2 (mmol/L) Final Bicarbonate, Venous, POC (i-STAT) 02/16/2024 08:50:47 18.0 Below low normal 23.0-31.0 (mmol/L) Final O2 Sat, calculated POC (i-STAT) 02/16/2024 08:50:47 62.0 Below low normal 94.0-98.0 (%) Final Glucose, whole blood 02/16/2024 08:50:47 75 70-120 (mg/dL) Final Potassium, Whole Blood 02/16/2024 08:50:47 3.6 3.5-5.1 (mmol/L) Final Sodium, Whole Blood 02/16/2024 08:50:47 108 Below lower panic limits 135-146 (mmol/L) Final Calcium, Ionized, Whole Blood 02/16/2024 08:50:47 0.65 Below lower panic limits 1.13-1.32 (mmol/L) Final Hemoglobin POC (i-STAT) 02/16/2024 08:50:47 9.2 Below low normal 14.0-16.8 (g/dL) Final HCT 02/16/2024 08:50:47 27 Below low normal 40-48 (%) Final Performing Location
--- OUTSIDE RECORDS SUMMARY | 2024-05-23 05:42 | External Medical Summary ---
Author Name Unknown Address Unknown Organization K01:LABORATORY [facility] [place] - [address] [place] [address] Laboratory Report Ordering Provider Test Date Status JEVONGUSTAVO 02/16/2024 14:24:24 Final Observation Date Value Abnormality Reference (Units ) Status Heparin, unfractionated level 02/16/2024 14:24:24 <0.10 <0.10 (IU/mL) Final Unfractionated therapeutic r anges for Anti Xa activity:
For Cardiac/Neurologic treatment: 0.3 to 0.6 IU/mL.
For treatment of DVT or Pulmonary Embolism: 0.3 to 0.7 IU/mL. Performing Location LABORATORY [facility] [place] - [address] [place] [address]
--- OUTSIDE RECORDS SUMMARY | 2024-05-23 05:42 | External Medical Summary ---
Author Name Unknown Address Unknown Organization K01:[place] [facility] [place] [facility] [address] Laboratory Report Ordering Provider Test Date Status GUSTAVO ESCOTO 02/16/2024 14:24:24 Final Observation Date Value Abnormality Reference (Units ) Status WBC, Total 02/16/2024 14:24:24 11.89 Above high normal 4.00-10.80 (K/uL) Final RBC 02/16/2024 14:24:24 3.02 4.50-5.25 (M/uL) Final Hemoglobin 02/16/2024 14:24:24 8.3 Below low normal 14.0-16.8 (g/dL) Final HCT 02/16/2024 14:24:24 26.8 Below low normal 40.0-48.4 (%) Final MCV 02/16/2024 14:24:24 88.7 82.0-99.5 (fL) Final MCH 02/16/2024 14:24:24 27.5 27.0-34.0 (pg) Final MCHC 02/16/2024 14:24:24 31.0 32.0-36.0 (g/dL) Final RDW 02/16/2024 14:24:24 15.9 11.5-15.5 (%) Final Platelets 02/16/2024 14:24:24 109 Below low normal 140-400 (K/uL) Final MPV 02/16/2024 14:24:24 10.5 6.6-11.1 (fL) Final Nucleated erythrocytes/100 leukocytes [Ratio] in Blood by Automated count 02/16/2024 14:24:24 0 <=0 (/100 WBCs) Final Performing Location LABORATORY [facility] [place] [address] [facility] [address]
--- OUTSIDE RECORDS SUMMARY | 2024-05-23 05:42 | External Medical Summary ---
Author Name Unknown Address Unknown Organization : Laboratory Report Ordering Provider Test Date Status SULMA LEE 02/16/2024 09:30:19 Final NORMAL (NON-HEPARINIZED) 74- 137 SECONDS
HEPARINIZED 200+ SECONDS
CRITICAL GREATER THAN 1000 SECONDS
null Observation Date Value Abnormality Reference (Units ) Status Kaolin activated time [Units/volume] in Blood 02/16/2024 09:30:19 510 50-1000 (secs) Final Performing Location
--- OUTSIDE RECORDS SUMMARY | 2024-05-23 05:42 | External Medical Summary ---
Author Name Unknown Address Unknown Organization K01:LABORATORY [facility] [place] [address] [facility] [address] Laboratory Report Ordering Provider Test Date Status SULMA LEE 02/16/2024 09:57:00 Final Observation Date Value Abnormality Reference (Units ) Status Body temperature 02/16/2024 09:57:00 37.0 (C) Final pH of Arterial blood 02/16/2024 09:57:00 7.408 7.350-7.450 (units) Final Carbon dioxide [Partial pressure] in Arterial blood 02/16/2024 09:57:00 39.3 35.0-45.0 (mmHg) Final Oxygen [Partial pressure] in Arterial blood 02/16/2024 09:57:00 231.0 Above high normal 75.0-100.0 (mmHg) Final Base excess, Arterial 02/16/2024 09:57:00 0.2 -2.0-2.0 (mmol/L) Final Hemoglobin [Mass/volume] in Blood by Oximetry 02/16/2024 09:57:00 8.8 Below low normal 14.0-16.8 (g/dL) Final Oxyhemoglobin, Arterial (FO2HB) 02/16/2024 09:57:00 97.9 94.0-99.0 (% total Hgb) Final Carboxyhemoglobin 02/16/2024 09:57:00 1.6 Above high normal <=1.5 (% total Hgb) Final Smokers: 0-9.0 % Methemoglobin 02/16/2024 09:57:00 0.6 <=1.5 (% total Hgb) Final Deoxyhemoglobin/Hemoglobin.t cheryl l in Arterial blood 02/16/2024 09:57:00 0.0 0.0-5.0 (% tot al Hgb) Final Oxygen content in Arterial blood 02/16/2024 09:57:00 Final Not calculated. Oxygen/Total gas setting [Volume Fraction] Ventilator 02/16/2024 09:57:00 Not Provided (%) Final O2 FLOW, ARTERIAL - [facility] 02/16/2024 09:57:00 Not Provided (L/min) Final Bicarbonate, Venous, POC (i-STAT) 02/16/2024 09:57:00 24.3 23.0-31.0 (mmol/L) Final Performing Location LABORATORY [facility] [place] - [facility] [place] [address] [facility] [address]
--- OUTSIDE RECORDS SUMMARY | 2024-05-23 05:42 | External Medical Summary ---
Author Name Unknown Address Unknown Organization K01:[place]ORY [facility] [place] [address] [facility] [address] Laboratory Report Ordering Provider Test Date Status GSUTAVO ESCOTO 02/16/2024 14:24:24 Final If R time > 20 minutes and n o clot formed suggesting hypocoagulable state or interfering substance (anticoagulation). Consider resubmitting a new sample and/or checking PT/INR, aPTT, fibrinogen, and platelet count. Observation Date Value Abnormality Reference (Units ) Status Clot formation [Time] in Blood by Thromboelastography 02/16/2024 14:24:24 4.8 2.5-8.3 (minutes) Final Clot strength in Blood by Thromboelastography 02/16/2024 14:24:24 2.1 0.5-3.7 (minutes) Final Clot angle in Blood by Thromboelastography 02/16/2024 14:24:24 66.6 46.8-78.4 (degrees) Final Maximum clot firmness [Length] in Blood by Thromboelastography 02/16/2024 14:24:24 61.0 50.6-72.5 (mm) Final This is an appended report. These results have been appended to a previously preliminary verified report. Coagulation index in Blood b y Thromboelastography 02/16/2024 14:24:24 0.8 -3.0-3.0 F inal This is an appended report. These results have been appended to a previously preliminary verified report. Clot Lysis [Length fraction] in Blood by Thromboelastography --30 minutes post maximum clot amplitude 02/16/2024 14:24:24 0.0 0.0-7.5 (%) Final This is an appended report. These results have been appended to a previously preliminary verified report. Performing Location LAB[place]ORY [facility] [place] [address] [facility] [address]
--- OUTSIDE RECORDS SUMMARY | 2024-05-23 05:42 | External Medical Summary ---
Author Name Unknown Address Unknown Organization K01:LABORATORY [facility] - [address] [place] [address] Laboratory Report Ordering Provider Test Date Status GUSTAVO ESCOTO 02/16/2024 19:55:47 Final Observation Date Value Abnormality Reference (Units ) Status Magnesium 02/16/2024 19:55:47 2.7 Above high normal 1. 5-2.6 (mg/dL) Final Performing Location LABORATORY [facility] - [address] [place] [address]
--- OUTSIDE RECORDS SUMMARY | 2024-05-23 05:42 | External Medical Summary ---
Author Name Unknown Address Unknown Organization K01:LABORATORY [facility] [place] - [address] [facility] [address] Laboratory Report Ordering Provider Test Date Status GUSTAVO ESCOTO 02/16/2024 14:56:07 Final Observation Date Value Abnormality Reference (Units ) Status Body temperature 02/16/2024 14:56:07 37.0 (C) Final pH of Arterial blood 02/16/2024 14:56:07 7.470 Above high normal 7.350-7.450 (units) Final Carbon dioxide [Partial pressure] in Arterial blood 02/16/2024 14:56:07 34.7 Below low normal 35.0-45.0 (mmHg) Final Oxygen [Partial pressure] in Arterial blood 02/16/2024 14:56:07 195.0 Above high normal 75.0-100.0 (mmHg) Final Base excess, Arterial 02/16/2024 14:56:07 1.8 -2.0-2.0 (mmol/L) Final Hemoglobin [Mass/volume] in Blood by Oximetry 02/16/2024 14:56:07 8.6 Below low normal 14.0-16.8 (g/dL) Final Oxyhemoglobin, Arterial (FO2HB) 02/16/2024 14:56:07 97.3 94.0-99.0 (% total Hgb) Final Carboxyhemoglobin 02/16/2024 14:56:07 1.9 Above high normal <=1.5 (% total Hgb) Final Smokers: 0-9.0 % Methemoglobin 02/16/2024 14:56:07 0.9 <=1.5 (% total Hgb) Final Deoxyhemoglobin/Hemoglobin.t rotational moulding operator l in Arterial blood 02/16/2024 14:56:07 0.0 0.0-5.0 (% tot al Hgb) Final Oxygen content in Arterial blood 02/16/2024 14:56:07 Final Not calculated.
Potassium, Whole Blood 02/16/2024 14:56:07 4.2 3.5-5.1 (mmol/L) Final Sodium, Whole Blood 02/16/2024 14:56:07 139 135-146 (mmol/L) Final Chloride, Whole Blood 02/16/2024 14:56:07 103 98-107 (mmol/L) Final Calcium.ionized [Moles/volume] in Blood by Ion-selective membrane electrode (ISE) 02/16/2024 14:56:07 1.09 Below low normal 1.13-1.32 (mmol/L) Final Anion gap, Whole Blood 02/16/2024 14:56:07 11.1 7.0-15.0 (mmol/L) Final Glucose, whole blood 02/16/2024 14:56:07 154 Above high normal 70-120 (mg/dL) Final Oxygen/Total gas setting [Volume Fraction] Ventilator 02/16/2024 14:56:07 50 (%) Final O2 FLOW, ARTERIAL - [facility] 02/16/2024 14:56:07 Not Provided (L/min) Final Bicarbonate, Venous, POC (i-STAT) 02/16/2024 14:56:07 24.9 23.0-31.0 (mmol/L) Final Performing Location LABORATORY [facility] [place] - [address] [facility] [address]
--- OUTSIDE RECORDS SUMMARY | 2024-05-23 05:42 | External Medical Summary ---
Author Name Unknown Address Unknown Organization K01:LABORATORY [facility] [place] - [address] [place] [address] Laboratory Report Ordering Provider Test Date Status GUSTAVO ESCOTO 02/16/2024 14:24:24 Final Observation Date Value Abnormality Reference (Units ) Status Antithrombin III 02/16/2024 14:24:24 52 Below low nor mal 80-120 (%) Final Performing Location LABORATORY [facility] - [address] [place] [address]
--- OUTSIDE RECORDS SUMMARY | 2024-05-23 05:42 | External Medical Summary ---
Author Name Unknown Address Unknown Organization : Laboratory Report Ordering Provider Test Date Status SULMA LEE 02/16/2024 12:22:01 Final NORMAL (NON-HEPARINIZED) 74- 137 SECONDS
HEPARINIZED 200+ SECONDS
CRITICAL GREATER THAN 1000 SECONDS
null Observation Date Value Abnormality Reference (Units ) Status Kaolin activated time [Units/volume] in Blood 02/16/2024 12:22:01 112 50-1000 (secs) Final Performing Location
--- OUTSIDE RECORDS SUMMARY | 2024-05-23 05:42 | External Medical Summary ---
Author Name Unknown Address Unknown Organization K01:LABORATORY [facility] - [address] [place] [address] Laboratory Report Ordering Provider Test Date Status DAVID CLEMENS 02/16/2024 12:21:08 Final Observation Date Value Abnormality Reference (Units ) Status Fibrinogen 02/16/2024 12:21:08 289 178-467 ( mg/dL) Final Performing Location LABORATORY [facility] - [address] [place] [address]
--- OUTSIDE RECORDS SUMMARY | 2024-05-23 05:42 | External Medical Summary ---
Author Name Unknown Address Unknown Organization K01:LABORATORY [facility] [place] - [address] [facility] [address] Laboratory Report Ordering Provider Test Date Status SULMA LEE 02/16/2024 09:57:00 Final Observation Date Value Abnormality Reference (Units ) Status Body temperature 02/16/2024 09:57:00 37.0 (C) Final pH of Venous blood 02/16/2024 09:57:00 7.372 7.320-7.430 (units) Final Carbon dioxide [Partial pressure] in Venous blood 02/16/2024 09:57:00 46.3 40.0-60.0 (mmHg) Final Oxygen [Partial pressure] in Venous blood 02/16/2024 09:57:00 43.1 25.0-50.0 (mmHg) Final Base excess, Capillary 02/16/2024 09:57:00 1.3 -2.0-2.0 (mmol/L) Final Hemoglobin [Mass/volume] in Blood by Oximetry 02/16/2024 09:57:00 8.8 Below low normal 14.0-16.8 (g/dL) Final Oxyhemoglobin, Venous (FO2HB) 02/16/2024 09:57:00 74.5 40.0-85.0 (% total Hgb) Final Carboxyhemoglobin 02/16/2024 09:57:00 1.4 <=1.5 (% total Hgb) Final Smokers: 0-9.0 % Methemoglobin 02/16/2024 09:57:00 1.0 <= 1.5 (% total Hgb) Final Deoxyhemoglobin/Hemoglo bin.total in Venous blood 02/16/2024 09:57:00 23.1 (% total Hgb) Final Oxygen content in Venous blood 02/16/2024 09:57:00 9.2 7.0-18.0 (%vol) Final Potassium, Whole Blood 02/16/2024 09:57:00 5.1 3.5-5.1 (mmol/L) Final Sodium, Whole Blood 02/16/2024 09:57:00 137 135-146 (mmol/L) Final Chloride, Whole Blood 02/16/2024 09:57:00 104 98-107 (mmol/L) Final Calcium.ionized [Moles/volume] in Blood by Ion-selective membrane electrode (ISE) 02/16/2024 09:57:00 1.03 Below low normal 1.13-1.32 (mmol/L) Final Anion gap, Whole Blood 02/16/2024 09:57:00 7.5 7.0-15.0 (mmol/L) Final Glucose, whole blood 02/16/2024 09:57:00 116 70-120 (mg/dL) Final Bicarbonate, Venous, POC (i-STAT) 02/16/2024 09:57:00 26.2 23.0-31.0 (mmol/L) Final Performing Location LABORATORY [facility] [place] - [address] [facility] [address]
--- OUTSIDE RECORDS SUMMARY | 2024-05-23 05:42 | External Medical Summary ---
Author Name Unknown Address Unknown Organization : Laboratory Report Ordering Provider Test Date Status SULMA LEE 02/16/2024 10:07:30 Final NORMAL (NON-HEPARINIZED) 74- 137 SECONDS
HEPARINIZED 200+ SECONDS
CRITICAL GREATER THAN 1000 SECONDS
null Observation Date Value Abnormality Reference (Units ) Status Kaolin activated time [Units/volume] in Blood 02/16/2024 10:07:30 521 50-1000 (secs) Final Performing Location
--- OUTSIDE RECORDS SUMMARY | 2024-05-23 05:42 | External Medical Summary ---
Author Name Unknown Address Unknown Organization K01:[place] [facility] [place] [address] [place] [address] Laboratory Report Ordering Provider Test Date Status SULMA LEE 02/16/2024 09:57:00 Final Observation Date Value Abnormality Reference (Units ) Status Platelets 02/16/2024 09:57:00 128 Below low normal 140 -400 (K/uL) Final Performing Location LABORATORY [facility] - [address] [place] [address]
--- OUTSIDE RECORDS SUMMARY | 2024-05-23 05:42 | External Medical Summary ---
Author Name Unknown Address Unknown Organization K01:[place]ORY [facility] [place] [address] [facility] [address] Laboratory Report Ordering Provider Test Date Status GUSTAVO ESCOTO 02/16/2024 17:08:59 Final Observation Date Value Abnormality Reference (Units ) Status Body temperature 02/16/2024 17:08:59 37.0 (C) Final pH of Arterial blood 02/16/2024 17:08:59 7.347 Below low normal 7.350-7.450 (units) Final Carbon dioxide [Partial pressure] in Arterial blood 02/16/2024 17:08:59 45.2 Above high normal 35.0-45.0 (mmHg) Final Oxygen [Partial pressure] in Arterial blood 02/16/2024 17:08:59 184.0 Above high normal 75.0-100.0 (mmHg) Final Base excess, Arterial 02/16/2024 17:08:59 -0.9 -2.0-2.0 (mmol/L) Final Hemoglobin [Mass/volume] in Blood by Oximetry 02/16/2024 17:08:59 8.0 Below low normal 14.0-16.8 (g/dL) Final Oxyhemoglobin, Arterial (FO2HB) 02/16/2024 17:08:59 97.7 94.0-99.0 (% total Hgb) Final Carboxyhemoglobin 02/16/2024 17:08:59 1.4 <=1.5 (% total Hgb) Final Smokers: 0-9.0 % Methemoglobin 02/16/2024 17:08:59 0.7 <=1.5 (% total Hgb) Final Deoxyhemoglobin/Hemog lobin.total in Arterial blood 02/16/2024 17:08:59 0.2 0.0-5.0 (% total Hgb) Final Oxygen content in Arterial blood 02/16/2024 17:08:59 11.4 Below low normal 15.0-24.0 (%vol) Final Potassium, Whole Blood 02/16/2024 17:08:59 3.9 3.5-5.1 (mmol/L) Final Sodium, Whole Blood 02/16/2024 17:08:59 142 135-146 (mmol/L) Final Chloride, Whole Blood 02/16/2024 17:08:59 106 98-107 (mmol/L) Final Calcium.ionized [Moles/volume] in Blood by Ion-selective membrane electrode (ISE) 02/16/2024 17:08:59 1.20 1.13-1.32 (mmol/L) Final Anion gap, Whole Blood 02/16/2024 17:08:59 12.3 7.0-15.0 (mmol/L) Final Glucose, whole blood 02/16/2024 17:08:59 130 Above high normal 70-120 (mg/dL) Final Oxygen/Total gas setting [Volume Fraction] Ventilator 02/16/2024 17:08:59 50 (%) Final O2 FLOW, ARTERIAL - [facility] 02/16/2024 17:08:59 Not Provided (L/min) Final Bicarbonate, Venous, POC (i-STAT) 02/16/2024 17:08:59 24.1 23.0-31.0 (mmol/L) Final Performing Location LAB[facility]ATORY [facility] [place] [address] [facility] [address]
--- OUTSIDE RECORDS SUMMARY | 2024-05-23 05:42 | External Medical Summary ---
Author Name Unknown Address Unknown Organization K01:LABORATORY [facility] - [address] [place] [address] Laboratory Report Ordering Provider Test Date Status GUSTAVO ESCOTO 02/16/2024 14:24:24 Final Observation Date Value Abnormality Reference (Units ) Status Magnesium 02/16/2024 14:24:24 3.2 Above high normal 1. 5-2.6 (mg/dL) Final Performing Location LABORATORY [facility] - [address] [place] [address]
--- OUTSIDE RECORDS SUMMARY | 2024-05-23 05:42 | External Medical Summary ---
Author Name Unknown Address Unknown Organization K01:LABORATORY [facility] - [address] [place] [address] Laboratory Report Ordering Provider Test Date Status SULMA LEE 02/16/2024 09:57:00 Final Observation Date Value Abnormality Reference (Units ) Status HCT 02/16/2024 09:57:00 27.7 Below low normal 40. 0-48.4 (%) Final Performing Location LABORATORY [facility] - [address] [place] [address]
--- OUTSIDE RECORDS SUMMARY | 2024-05-23 05:42 | External Medical Summary ---
Author Name Unknown Address Unknown Organization K01:LABORATORY [facility] [place] - [facility] [address] [facility] [address] Laboratory Report Ordering Provider Test Date Status DAVID CLEMENS 02/16/2024 12:21:08 Final Observation Date Value Abnormality Reference (Units ) Status WBC, Total 02/16/2024 12:21:08 13.34 Above high normal 4.00-10.80 (K/uL) Final RBC 02/16/2024 12:21:08 3.84 4.50-5.25 (M/uL) Final Hemoglobin 02/16/2024 12:21:08 10.4 Below low normal 14.0-16.8 (g/dL) Final HCT 02/16/2024 12:21:08 33.4 Below low normal 40.0-48.4 (%) Final MCV 02/16/2024 12:21:08 87.0 82.0-99.5 (fL) Final MCH 02/16/2024 12:21:08 27.1 27.0-34.0 (pg) Final MCHC 02/16/2024 12:21:08 31.1 32.0-36.0 (g/dL) Final RDW 02/16/2024 12:21:08 15.9 11.5-15.5 (%) Final Platelets 02/16/2024 12:21:08 82 Below low normal 140-400 (K/uL) Final MPV 02/16/2024 12:21:08 10.8 6.6-11.1 (fL) Final Nucleated erythrocytes/100 leukocytes [Ratio] in Blood by Automated count 02/16/2024 12:21:08 0 <=0 (/100 WBCs) Final Performing Location LABORATORY [facility] [place] - [address] [facility] [address]
--- OUTSIDE RECORDS SUMMARY | 2024-05-23 05:42 | External Medical Summary ---
Author Name Unknown Address Unknown Organization K01:[facility] [place] [address] [place] [address] Laboratory Report Ordering Provider Test Date Status DAVID CLEMENS 02/16/2024 12:21:08 Final Warfarin Therapy
INR: 2 .0-3.0 conventional anticoagulation
INR: 2.5- 3.5 high intensity anticoagulation Observation Date Value Abnormality Reference (Units ) Status PT 02/16/2024 12:21:08 20.1 Above high normal 11 .6-15.2 (seconds) Final INR 02/16/2024 12:21:08 1.7 Above high normal 0. 8-1.2 Final Performing Location [facility] [place] [address] [place] [address]
--- OUTSIDE RECORDS SUMMARY | 2024-05-23 05:42 | External Medical Summary ---
Author Name Unknown Address Unknown Organization K01:[place] [facility] [place] [address] [facility] [address] Laboratory Report Ordering Provider Test Date Status GUSTAVO ESCOTO 02/16/2024 18:31:36 Final Observation Date Value Abnormality Reference (Units ) Status Body temperature 02/16/2024 18:31:36 37.0 (C) Final pH of Arterial blood 02/16/2024 18:31:36 7.364 7.350-7.450 (units) Final Carbon dioxide [Partial pressure] in Arterial blood 02/16/2024 18:31:36 44.1 35.0-45.0 (mmHg) Final Oxygen [Partial pressure] in Arterial blood 02/16/2024 18:31:36 139.0 Above high normal 75.0-100.0 (mmHg) Final Base excess, Arterial 02/16/2024 18:31:36 -0.2 -2.0-2.0 (mmol/L) Final Hemoglobin [Mass/volume] in Blood by Oximetry 02/16/2024 18:31:36 7.8 Below low normal 14.0-16.8 (g/dL) Final Oxyhemoglobin, Arterial (FO2HB) 02/16/2024 18:31:36 97.2 94.0-99.0 (% total Hgb) Final Carboxyhemoglobin 02/16/2024 18:31:36 1.7 Above high normal <=1.5 (% total Hgb) Final Smokers: 0-9.0 % Methemoglobin 02/16/2024 18:31:36 0.8 <=1.5 (% total Hgb) Final Deoxyhemoglobin/Hemog lobin.total in Arterial blood 02/16/2024 18:31:36 0.3 0.0-5.0 (% total Hgb) Final Oxygen content in Arterial blood 02/16/2024 18:31:36 10.9 Below low normal 15.0-24.0 (%vol) Final Potassium, Whole Blood 02/16/2024 18:31:36 3.9 3.5-5.1 (mmol/L) Final Sodium, Whole Blood 02/16/2024 18:31:36 141 135-146 (mmol/L) Final Chloride, Whole Blood 02/16/2024 18:31:36 104 98-107 (mmol/L) Final Calcium.ionized [Moles/volume] in Blood by Ion-selective membrane electrode (ISE) 02/16/2024 18:31:36 1.18 1.13-1.32 (mmol/L) Final Anion gap, Whole Blood 02/16/2024 18:31:36 12.4 7.0-15.0 (mmol/L) Final Glucose, whole blood 02/16/2024 18:31:36 142 Above high normal 70-120 (mg/dL) Final Oxygen/Total gas setting [Volume Fraction] Ventilator 02/16/2024 18:31:36 40 (%) Final O2 FLOW, ARTERIAL - [facility] 02/16/2024 18:31:36 Not Provided (L/min) Final Bicarbonate, Venous, POC (i-STAT) 02/16/2024 18:31:36 24.6 23.0-31.0 (mmol/L) Final Performing Location [place] [facility] [place] [facility] [address] [facility] [address]
--- OUTSIDE RECORDS SUMMARY | 2024-05-23 05:42 | External Medical Summary ---
Author Name Unknown Address Unknown Organization K01:LAB[facility] [facility] [place] [address] [place] [address] Laboratory Report Ordering Provider Test Date Status GUSTAVO ESCOTO 02/16/2024 14:24:24 Final Stop Collection after Bigg kern is removed Observation Date Value Abnormality Reference (Units ) Status Oxygen saturation in Venous blood 02/16/2024 14:24:24 72.9 40.0-85.0 (%) Final Performing Location [facility] [facility] [place] [address] [place] [address]
--- OUTSIDE RECORDS SUMMARY | 2024-05-23 05:42 | External Medical Summary ---
Author Name Unknown Address Unknown Organization K01:LAB[facility]ORY [facility] [place] - [address] [facility] [address] Laboratory Report Ordering Provider Test Date Status DAVID CLEMENS 02/16/2024 12:22:49 Final Observation Date Value Abnormality Reference (Units ) Status Body temperature 02/16/2024 12:22:49 37.0 (C) Final pH of Arterial blood 02/16/2024 12:22:49 7.417 7.350-7.450 (units) Final Carbon dioxide [Partial pressure] in Arterial blood 02/16/2024 12:22:49 39.3 35.0-45.0 (mmHg) Final Oxygen [Partial pressure] in Arterial blood 02/16/2024 12:22:49 142.0 Above high normal 75.0-100.0 (mmHg) Final Base excess, Arterial 02/16/2024 12:22:49 0.9 -2.0-2.0 (mmol/L) Final Hemoglobin [Mass/volume] in Blood by Oximetry 02/16/2024 12:22:49 10.8 Below low normal 14.0-16.8 (g/dL) Final Oxyhemoglobin, Arterial (FO2HB) 02/16/2024 12:22:49 96.3 94.0-99.0 (% total Hgb) Final Carboxyhemoglobin 02/16/2024 12:22:49 1.6 Above high normal <=1.5 (% total Hgb) Final Smokers: 0-9.0 % Methemoglobin 02/16/2024 12:22:49 0.8 <=1.5 (% total Hgb) Final Deoxyhemoglobin/Hemog lobin.total in Arterial blood 02/16/2024 12:22:49 1.3 0.0-5.0 (% total Hgb) Final Oxygen content in Arterial blood 02/16/2024 12:22:49 14.8 Below low normal 15.0-24.0 (%vol) Final Potassium, Whole Blood 02/16/2024 12:22:49 4.9 3.5-5.1 (mmol/L) Final Sodium, Whole Blood 02/16/2024 12:22:49 137 135-146 (mmol/L) Final Chloride, Whole Blood 02/16/2024 12:22:49 101 98-107 (mmol/L) Final Calcium.ionized [Moles/volume] in Blood by Ion-selective membrane electrode (ISE) 02/16/2024 12:22:49 1.06 Below low normal 1.13-1.32 (mmol/L) Final Anion gap, Whole Blood 02/16/2024 12:22:49 11.5 7.0-15.0 (mmol/L) Final Glucose, whole blood 02/16/2024 12:22:49 156 Above high normal 70-120 (mg/dL) Final Oxygen/Total gas setting [Volume Fraction] Ventilator 02/16/2024 12:22:49 Not Provided (%) Final O2 FLOW, ARTERIAL - [facility] 02/16/2024 12:22:49 Not Provided (L/min) Final Bicarbonate, Venous, POC (i-STAT) 02/16/2024 12:22:49 24.8 23.0-31.0 (mmol/L) Final Performing Location LABORATORY [facility] [place] - [address] [facility] [address]
--- OUTSIDE RECORDS SUMMARY | 2024-05-23 05:42 | External Medical Summary ---
Author Name Unknown Address Unknown Organization : Laboratory Report Ordering Provider Test Date Status SULMA LEE 02/16/2024 08:25:22 Final NORMAL (NON-HEPARINIZED) 74- 137 SECONDS
HEPARINIZED 200+ SECONDS
CRITICAL GREATER THAN 1000 SECONDS
null Observation Date Value Abnormality Reference (Units ) Status Kaolin activated time [Units/volume] in Blood 02/16/2024 08:25:22 118 50-1000 (secs) Final Performing Location
--- OUTSIDE RECORDS SUMMARY | 2024-05-23 05:42 | External Medical Summary ---
Author Name Unknown Address Unknown Organization K01:LABORATORY [place] [address] [facility] [address] Laboratory Report Ordering Provider Test Date Status SULMA LEE 02/16/2024 09:57:00 Final Observation Date Value Abnormality Reference (Units ) Status Clot formation [Time] in Blood by Thromboelastography 02/16/2024 09:57:00 4.8 2.5-8.3 (minutes) Final Clot strength in Blood by Thromboelastography 02/16/2024 09:57:00 1.8 0.5-3.7 (minutes) Final Clot angle in Blood by Thromboelastography 02/16/2024 09:57:00 65.2 46.8-78.4 (degrees) Final Maximum clot firmness [Length] in Blood by Thromboelastography 02/16/2024 09:57:00 59.8 50.6-72.5 (mm) Final This is an appended report. These results have been appended to a previously preliminary verified report. Coagulation index in Blood b y Thromboelastography 02/16/2024 09:57:00 0.7 -3.0-3.0 F inal This is an appended report. These results have been appended to a previously preliminary verified report. Clot Lysis [Length fraction] in Blood by Thromboelastography --30 minutes post maximum clot amplitude 02/16/2024 09:57:00 2.7 0.0-7.5 (%) Final This is an appended report. These results have been appended to a previously preliminary verified report. Performing Location LABORATORY [place] [address] [facility] [address]
--- OUTSIDE RECORDS SUMMARY | 2024-05-23 05:42 | External Medical Summary ---
Author Name Unknown Address Unknown Organization : Laboratory Report Ordering Provider Test Date Status SULMA LEE 02/16/2024 14:21:41 Final Observation Date Value Abnormality Reference (Units) Status Blood draw [PhenX] 02/16/2024 14:21:41 Arterial Draw Final pH, POC (i-STAT) 02/16/2024 14:21:41 7.448 7.350-7.450 Final PCO2 POC (i-STAT) 02/16/2024 14:21:41 37.6 35.0-45.0 (mm Hg) Final PO2 POC (i-STAT) 02/16/2024 14:21:41 459 Above high normal 75-100 (mm Hg) Final Base excess standard in Arterial blood by calculation 02/16/2024 14:21:41 2 -2-2 (mmol/L) Final Bicarbonate, Venous, POC (i-STAT) 02/16/2024 14:21:41 26.0 23.0-31.0 (mmol/L) Final O2 Sat, calculated POC (i-STAT) 02/16/2024 14:21:41 100.0 Above high normal 94.0-98.0 (%) Final Glucose, whole blood 02/16/2024 14:21:41 150 Above high normal 70-120 (mg/dL) Final Potassium, Whole Blood 02/16/2024 14:21:41 4.2 3.5-5.1 (mmol/L) Final Sodium, Whole Blood 02/16/2024 14:21:41 138 135-146 (mmol/L) Final Calcium, Ionized, Whole Blood 02/16/2024 14:21:41 1.10 Below low normal 1.13-1.32 (mmol/L) Final Hemoglobin POC (i-STAT) 02/16/2024 14:21:41 9.2 Below low normal 14.0-16.8 (g/dL) Final HCT 02/16/2024 14:21:41 27 Below low normal 40-48 (%) Final Oxygen/Total gas setting [Volume Fraction] Ventilator 02/16/2024 14:21:41 100 (%) Final Performing Location
--- OUTSIDE RECORDS SUMMARY | 2024-05-23 05:42 | External Medical Summary ---
Author Name Unknown Address Unknown Organization K01:[place]ORY [facility] [place] [address] [facility] [place] [facility] [address] Laboratory Report Ordering Provider Test Date Status GUSTAVO ESCOTO 02/16/2024 14:24:24 Final Anticoagulation may affect t esting. Refer to [employer] Test Catalog for a list of effects. Observation Date Value Abnormality Reference (Units ) Status aPTT panel - Platelet poor plasma 02/16/2024 14:24:24 78 Above high normal 21-38 (seconds) Final Performing Location [facility] [facility] [place] [address] [facility] [address]
--- OUTSIDE RECORDS SUMMARY | 2024-05-23 05:42 | External Medical Summary ---
Author Name Unknown Address Unknown Organization K01:LABORATORY [facility] - [address] [place] [address] Laboratory Report Ordering Provider Test Date Status SULMA LEE 02/16/2024 09:57:00 Final Observation Date Value Abnormality Reference (Units ) Status Fibrinogen 02/16/2024 09:57:00 261 178-467 ( mg/dL) Final Performing Location LABORATORY [facility] - [address] [place] [address]
--- OUTSIDE RECORDS SUMMARY | 2024-05-23 05:42 | External Medical Summary ---
Author Name Unknown Address Unknown Organization : Laboratory Report Ordering Provider Test Date Status SULMA LEE 02/16/2024 15:58:41 Final Observation Date Value Abnormality Reference (Units ) Status Glucose Point of Care 02/16/2024 15:58:41 129 Above high normal 70-120 (mg/dL) Final Performing Location
--- OUTSIDE RECORDS SUMMARY | 2024-05-23 05:42 | External Medical Summary ---
Author Name Unknown Address Unknown Organization : Laboratory Report Ordering Provider Test Date Status QUINTON LEEBARRIE 02/16/2024 11:05:17 Final Observation Date Value Abnormality Reference (Units) Status Blood draw [PhenX] 02/16/2024 11:05:17 Arterial Draw Final pH, POC (i-STAT) 02/16/2024 11:05:17 7.420 7.350-7.450 Final PCO2 POC (i-STAT) 02/16/2024 11:05:17 41.6 35.0-45.0 (mm Hg) Final PO2 POC (i-STAT) 02/16/2024 11:05:17 223 Above high normal 75-100 (mm Hg) Final Base excess standard in Arterial blood by calculation 02/16/2024 11:05:17 2 -2-2 (mmol/L) Final Bicarbonate, Venous, POC (i-STAT) 02/16/2024 11:05:17 27.0 23.0-31.0 (mmol/L) Final O2 Sat, calculated POC (i-STAT) 02/16/2024 11:05:17 100.0 Above high normal 94.0-98.0 (%) Final Glucose, whole blood 02/16/2024 11:05:17 163 Above high normal 70-120 (mg/dL) Final Potassium, Whole Blood 02/16/2024 11:05:17 6.0 Above high normal 3.5-5.1 (mmol/L) Final Sodium, Whole Blood 02/16/2024 11:05:17 136 135-146 (mmol/L) Final Calcium, Ionized, Whole Blood 02/16/2024 11:05:17 0.99 Below low normal 1.13-1.32 (mmol/L) Final Hemoglobin POC (i-STAT) 02/16/2024 11:05:17 10.9 Below low normal 14.0-16.8 (g/dL) Final HCT 02/16/2024 11:05:17 32 Below low normal 40-48 (%) Final Performing Location
--- OUTSIDE RECORDS SUMMARY | 2024-05-23 05:42 | External Medical Summary ---
Author Name Unknown Address Unknown Organization K01:[place]ORY [facility] [place] [address] [place] [address] Laboratory Report Ordering Provider Test Date Status GUSTAVO ESCOTO 02/16/2024 14:24:24 Final Warfarin Therapy
INR: 2 .0-3.0 conventional anticoagulation
INR: 2.5- 3.5 high intensity anticoagulation Observation Date Value Abnormality Reference (Units ) Status PT 02/16/2024 14:24:24 17.8 Above high normal 11 .6-15.2 (seconds) Final INR 02/16/2024 14:24:24 1.5 Above high normal 0. 8-1.2 Final Performing Location LAB[facility]ORY [facility] [place] [address] [place] [address]
--- OUTSIDE RECORDS SUMMARY | 2024-05-23 05:42 | External Medical Summary ---
Author Name Unknown Address Unknown Organization : Laboratory Report Ordering Provider Test Date Status SULMA LEE 02/16/2024 11:37:55 Final Observation Date Value Abnormality Reference (Units) Status Blood draw [PhenX] 02/16/2024 11:37:55 Arterial Draw Final pH, POC (i-STAT) 02/16/2024 11:37:55 7.394 7.350-7.450 Final PCO2 POC (i-STAT) 02/16/2024 11:37:55 46.2 Above high normal 35.0-45.0 (mm Hg) Final PO2 POC (i-STAT) 02/16/2024 11:37:55 191 Above high normal 75-100 (mm Hg) Final Base excess standard in Arterial blood by calculation 02/16/2024 11:37:55 3 Above high normal -2-2 (mmol/L) Final Bicarbonate, Venous, POC (i-STAT) 02/16/2024 11:37:55 28.2 23.0-31.0 (mmol/L) Final O2 Sat, calculated POC (i-STAT) 02/16/2024 11:37:55 100.0 Above high normal 94.0-98.0 (%) Final Glucose, whole blood 02/16/2024 11:37:55 151 Above high normal 70-120 (mg/dL) Final Potassium, Whole Blood 02/16/2024 11:37:55 6.2 Above high normal 3.5-5.1 (mmol/L) Final Sodium, Whole Blood 02/16/2024 11:37:55 134 Below low normal 135-146 (mmol/L) Final Calcium, Ionized, Whole Blood 02/16/2024 11:37:55 1.72 Above upper panic limits 1.13-1.32 (mmol/L) Final Hemoglobin POC (i-STAT) 02/16/2024 11:37:55 10.2 Below low normal 14.0-16.8 (g/dL) Final HCT 02/16/2024 11:37:55 30 Below low normal 40-48 (%) Final Performing Location
--- OUTSIDE RECORDS SUMMARY | 2024-05-23 05:42 | External Medical Summary ---
Author Name Unknown Address Unknown Organization K01:[place]ORY [facility] [place] [address] [facility] [address] Laboratory Report Ordering Provider Test Date Status GUSTAVO ESCOTO 02/16/2024 14:24:17 Final Observation Date Value Abnormality Reference (Units ) Status Body temperature 02/16/2024 14:24:17 37.0 (C) Final pH of Arterial blood 02/16/2024 14:24:17 7.451 Above high normal 7.350-7.450 (units) Final Carbon dioxide [Partial pressure] in Arterial blood 02/16/2024 14:24:17 37.9 35.0-45.0 (mmHg) Final Oxygen [Partial pressure] in Arterial blood 02/16/2024 14:24:17 387.0 Above high normal 75.0-100.0 (mmHg) Final Base excess, Arterial 02/16/2024 14:24:17 2.4 Above high normal -2.0-2.0 (mmol/L) Final Hemoglobin [Mass/volume] in Blood by Oximetry 02/16/2024 14:24:17 8.6 Below low normal 14.0-16.8 (g/dL) Final Oxyhemoglobin, Arterial (FO2HB) 02/16/2024 14:24:17 97.5 94.0-99.0 (% total Hgb) Final Carboxyhemoglobin 02/16/2024 14:24:17 2.0 Above high normal <=1.5 (% total Hgb) Final Smokers: 0-9.0 % Methemoglobin 02/16/2024 14:24:17 0.8 <=1.5 (% total Hgb) Final Deoxyhemoglobin/Hemoglobin.t instant potato processor l in Arterial blood 02/16/2024 14:24:17 0.0 0.0-5.0 (% tot al Hgb) Final Oxygen content in Arterial blood 02/16/2024 14:24:17 Final Not calculated.
Potassium, Whole Blood 02/16/2024 14:24:17 4.4 3.5-5.1 (mmol/L) Final Sodium, Whole Blood 02/16/2024 14:24:17 139 135-146 (mmol/L) Final Chloride, Whole Blood 02/16/2024 14:24:17 102 98-107 (mmol/L) Final Calcium.ionized [Moles/volume] in Blood by Ion-selective membrane electrode (ISE) 02/16/2024 14:24:17 1.10 Below low normal 1.13-1.32 (mmol/L) Final Anion gap, Whole Blood 02/16/2024 14:24:17 10.9 7.0-15.0 (mmol/L) Final Glucose, whole blood 02/16/2024 14:24:17 158 Above high normal 70-120 (mg/dL) Final Oxygen/Total gas setting [Volume Fraction] Ventilator 02/16/2024 14:24:17 100 (%) Final O2 FLOW, ARTERIAL - [facility] 02/16/2024 14:24:17 Not Provided (L/min) Final Bicarbonate, Venous, POC (i-STAT) 02/16/2024 14:24:17 26.0 23.0-31.0 (mmol/L) Final Performing Location [facility]ORY [facility] [place] [address] [facility] [address]
--- OUTSIDE RECORDS SUMMARY | 2024-05-23 05:42 | External Medical Summary ---
Author Name Unknown Address Unknown Organization K01:LABORATORY [facility] [place] - [address] [facility] [address] Laboratory Report Ordering Provider Test Date Status DAVID CLEMENS 02/16/2024 12:21:08 Final If R time > 20 minutes and n o clot formed suggesting hypocoagulable state or interfering substance (anticoagulation). Consider resubmitting a new sample and/or checking PT/INR, aPTT, fibrinogen, and platelet count. Observation Date Value Abnormality Reference (Units ) Status Clot formation [Time] in Blood by Thromboelastography 02/16/2024 12:21:08 4.7 2.5-8.3 (minutes) Final Clot strength in Blood by Thromboelastography 02/16/2024 12:21:08 2.0 0.5-3.7 (minutes) Final Clot angle in Blood by Thromboelastography 02/16/2024 12:21:08 63.0 46.8-78.4 (degrees) Final Maximum clot firmness [Length] in Blood by Thromboelastography 02/16/2024 12:21:08 57.1 50.6-72.5 (mm) Final This is an appended report. These results have been appended to a previously preliminary verified report. Coagulation index in Blood b y Thromboelastography 02/16/2024 12:21:08 0.2 -3.0-3.0 F inal This is an appended report. These results have been appended to a previously preliminary verified report. Clot Lysis [Length fraction] in Blood by Thromboelastography --30 minutes post maximum clot amplitude 02/16/2024 12:21:08 0.5 0.0-7.5 (%) Final This is an appended report. These results have been appended to a previously preliminary verified report. Performing Location LABORATORY [facility] [place] - [address] [facility] [address]
--- OUTSIDE RECORDS SUMMARY | 2024-05-23 05:43 | External Medical Summary ---
Author Name Unknown Address Unknown Organization K01:LABORATORY [facility] [place] - [address] [facility] [place] [address] Laboratory Report Ordering Provider Test Date Status JUAN OCAMPO 02/15/2024 01:34:00 Final Anticoagulation may affect t esting. Refer to [employer] Test Catalog for a list of effects. Observation Date Value Abnormality Reference (Units ) Status aPTT panel - Platelet poor plasma 02/15/2024 01:34:00 103 Above high normal 21-38 (seconds) Final Performing Location LABORATORY [facility] [place] - [address] [place] [address]
--- OUTSIDE RECORDS SUMMARY | 2024-05-23 05:43 | External Medical Summary ---
Author Name Unknown Address Unknown Organization K01:LABORATORY [facility] [place] - [address] [place] [address] Laboratory Report Ordering Provider Test Date Status KAMILA ERIC 02/13/2024 20:34:00 Final Observation Date Value Abnormality Reference (Units ) Status WBC, Total 02/13/2024 20:34:00 9.38 4.00-10.80 (K/uL) Final RBC 02/13/2024 20:34:00 5.07 4.50-5.25 (M/uL) Final Hemoglobin 02/13/2024 20:34:00 13.8 Below low normal 14.0-16.8 (g/dL) Final HCT 02/13/2024 20:34:00 44.3 40.0-48.4 (%) Final MCV 02/13/2024 20:34:00 87.4 82.0-99.5 (fL) Final MCH 02/13/2024 20:34:00 27.2 27.0-34.0 (pg) Final MCHC 02/13/2024 20:34:00 31.2 32.0-36.0 (g/dL) Final RDW 02/13/2024 20:34:00 16.1 11.5-15.5 (%) Final Platelets 02/13/2024 20:34:00 194 140-400 (K/uL) Final MPV 02/13/2024 20:34:00 10.5 6.6-11.1 (fL) Final Nucleated erythrocytes/100 leukocytes [Ratio] in Blood by Automated count 02/13/2024 20:34:00 0 <=0 (/100 WBCs) Final Performing Location LABORATORY [facility] [place] - [address] [place] [address]
--- OUTSIDE RECORDS SUMMARY | 2024-05-23 05:43 | External Medical Summary ---
Author Name Unknown Address Unknown Organization [id number]:LAB[facility]ATORY [facility] [place] [address] [facility] [place] [address] Laboratory Report Ordering Provider Test Date Status JUAN OCAMPO 02/14/2024 19:07:00 Final Anticoagulation may affect t esting. Refer to [employer] Test Catalog for a list of effects. Observation Date Value Abnormality Reference (Units ) Status aPTT panel - Platelet poor plasma 02/14/2024 19:07:00 92 Above high normal 21-38 (seconds) Final Performing Location LABORATORY [facility] [place] - [address] [place] [address]
--- OUTSIDE RECORDS SUMMARY | 2024-05-23 05:43 | External Medical Summary ---
Author Name Unknown Address Unknown Organization K01:[place] [facility] [place] [address] [place] [address] Laboratory Report Ordering Provider Test Date Status KAMILA ERIC 02/14/2024 03:35:00 Final Warfarin Therapy
INR: 2 .0-3.0 conventional anticoagulation
INR: 2.5- 3.5 high intensity anticoagulation Observation Date Value Abnormality Reference (Units ) Status PT 02/14/2024 03:35:00 14.3 11.6-15.2 (seconds) Final INR 02/14/2024 03:35:00 1.1 0.8-1.2 Final Performing Location [place] [facility] [place] [address] [place] [address]
--- OUTSIDE RECORDS SUMMARY | 2024-05-23 05:43 | External Medical Summary ---
Author Name Unknown Address Unknown Organization K01:[place] [facility] [place] [address] [place] [address] Laboratory Report Ordering Provider Test Date Status KAMILA ERIC 02/13/2024 20:34:00 Final Observation Date Value Abnormality Reference (Units ) Status Heparin, unfractionated level 02/13/2024 20:34:00 <0.10 <0.10 (IU/mL) Final Unfractionated therapeutic r anges for Anti Xa activity:
For Cardiac/Neurologic treatment: 0.3 to 0.6 IU/mL.
For treatment of DVT or Pulmonary Embolism: 0.3 to 0.7 IU/mL. Performing Location [place] [facility] [place] [address] [place] [address]
--- OUTSIDE RECORDS SUMMARY | 2024-05-23 05:43 | External Medical Summary ---
Author Name Unknown Address Unknown Organization K01:LABORATORY [facility] - [address] [place] [address] Laboratory Report Ordering Provider Test Date Status COLLINTREMAINE 02/15/2024 05:17:00 Final Observation Date Value Abnormality Reference (Units ) Status TSH 02/15/2024 05:17:00 3.26 0.27-4.20 (uIU/mL) Final Performing Location [facility]ORY [facility] - [address] [facility] [address]
--- OUTSIDE RECORDS SUMMARY | 2024-05-23 05:43 | External Medical Summary ---
Author Name Unknown Address Unknown Organization K01:[place] [facility] [place] [address] [facility] [place] [address] Laboratory Report Ordering Provider Test Date Status JUAN OCAMPO 02/15/2024 23:47:00 Final Anticoagulation may affect t esting. Refer to [employer] Test Catalog for a list of effects. Observation Date Value Abnormality Reference (Units ) Status aPTT panel - Platelet poor plasma 02/15/2024 23:47:00 78 Above high normal 21-38 (seconds) Final Performing Location [facility] [place] [address] [place] [address]
--- OUTSIDE RECORDS SUMMARY | 2024-05-23 05:43 | External Medical Summary ---
Author Name Unknown Address Unknown Organization K01:[place]ORY [facility] [place] [address] [place] [facility] Laboratory Report Ordering Provider Test Date Status TREMAINE POLANCO 02/15/2024 16:52:58 Final Observation Date Value Abnormality Reference (Units) Status Bacteria identified in Specimen by Culture 02/15/2024 16:52:58 No significant growth Final Test: Culture, Urine, Quanti tative
Specimen Source: Urine, Clean Catch
Specimen Type: Urine
Specimen Date: 02/15/2024 1652
Result Date: 02/16/2024 1324
Result Status: Final result
Resulting Lab: LABORATORY [facility] [place]
[address] [place] [address]

CULTURE

No significant growth

null Performing Location LABORATORY [facility] [place] - [address] [facility] [address]
--- OUTSIDE RECORDS SUMMARY | 2024-05-23 05:43 | External Medical Summary ---
Author Name Unknown Address Unknown Organization K01:[place] [facility] [place] [address] [facility] [address] [place] [address] Laboratory Report Ordering Provider Test Date Status KAMILA ERIC 02/15/2024 05:17:00 Final Observation Date Value Abnormality Reference (Units ) Status BUN 02/15/2024 05:17:00 17 6-20 (mg/dL) Final Creatinine 02/15/2024 05:17:00 1.0 0.6-1.2 (mg/dL) Final Glomerular filtration rate/1.73 sq M.predicted [Volume Rate/Area] in Serum, Plasma or Blood by Creatinine-based formula (CKD-EPI) 02/15/2024 05:17:00 78 >=60 (mL/min) Final eGFR is calculated based on the CKD-EPI 2020 equation. Sodium 02/15/2024 05:17:00 138 135-146 (m mol/L) Final Potassium 02/15/2024 05:17:00 4.0 3.5-5.1 (m mol/L) Final Cl 02/15/2024 05:17:00 102 98-107 (mm ol/L) Final CO2 02/15/2024 05:17:00 26 22-32 (mmo l/L) Final Anion gap 02/15/2024 05:17:00 10 7-15 (mmol /L) Final Glucose 02/15/2024 05:17:00 98 70-120 (mg /dL) Final Calcium 02/15/2024 05:17:00 9.2 8.4-10.2 ( mg/dL) Final Performing Location [place] [facility] [place] [address] [place] [address]
--- OUTSIDE RECORDS SUMMARY | 2024-05-23 05:43 | External Medical Summary ---
Author Name Unknown Address Unknown Organization K01:LABORATORY [facility] [place] - [address] [place] [address] Laboratory Report Ordering Provider Test Date Status KAMILA ERIC 02/14/2024 03:35:00 Final Observation Date Value Abnormality Reference (Units ) Status BUN 02/14/2024 03:35:00 19 6-20 (mg/dL) Final Creatinine 02/14/2024 03:35:00 1.1 0.6-1.2 (mg/dL) Final Glomerular filtration rate/1.73 sq M.predicted [Volume Rate/Area] in Serum, Plasma or Blood by Creatinine-based formula (CKD-EPI) 02/14/2024 03:35:00 69 >=60 (mL/min) Final eGFR is calculated based on the CKD-EPI 2020 equation. Sodium 02/14/2024 03:35:00 140 135-146 (m mol/L) Final Potassium 02/14/2024 03:35:00 3.9 3.5-5.1 (m mol/L) Final Cl 02/14/2024 03:35:00 104 98-107 (mm ol/L) Final CO2 02/14/2024 03:35:00 26 22-32 (mmo l/L) Final Anion gap 02/14/2024 03:35:00 10 7-15 (mmol /L) Final Glucose 02/14/2024 03:35:00 96 70-120 (mg /dL) Final Calcium 02/14/2024 03:35:00 8.8 8.4-10.2 ( mg/dL) Final Performing Location LABORATORY [facility] [place] - [address] [place] [address]
--- OUTSIDE RECORDS SUMMARY | 2024-05-23 05:43 | External Medical Summary ---
Author Name Unknown Address Unknown Organization K01:LABORATORY [facility] [place] - [address] [place] [address] Laboratory Report Ordering Provider Test Date Status TREMAINE POLANCO 02/15/2024 05:17:00 Final Observation Date Value Abnormality Reference (Units ) Status Iron 02/15/2024 05:17:00 66 45-176 (ug/dL) Final Iron-binding capacity 02/15/2024 05:17:00 230 Below low normal 250-425 (ug/dL) Final Transferrin Sat % 02/15/2024 05:17:00 29 15-55 (%) Final Performing Location LABORATORY [facility] [place] - [address] [place] [address]
--- OUTSIDE RECORDS SUMMARY | 2024-05-23 05:43 | External Medical Summary ---
Author Name Unknown Address Unknown Organization K01:LABORATORY [facility] - [address] [place] [address] Laboratory Report Ordering Provider Test Date Status COLLINTREMAINE 02/15/2024 05:17:00 Final Observation Date Value Abnormality Reference (Units ) Status Ferritin 02/15/2024 05:17:00 463 Above high normal 30 -400 (ng/mL) Final Performing Location LABORATORY [facility] - [address] [place] [address]
--- OUTSIDE RECORDS SUMMARY | 2024-05-23 05:43 | External Medical Summary ---
Author Name Unknown Address Unknown Organization K01:LABORATORY [facility] [place] - [address] [place] [address] Laboratory Report Ordering Provider Test Date Status KAMILA ERIC 02/13/2024 20:34:00 Final Warfarin Therapy
INR: 2 .0-3.0 conventional anticoagulation
INR: 2.5- 3.5 high intensity anticoagulation Observation Date Value Abnormality Reference (Units ) Status PT 02/13/2024 20:34:00 14.0 11.6-15.2 (seconds) Final INR 02/13/2024 20:34:00 1.1 0.8-1.2 Final Performing Location LABORATORY [facility] [place] - [facility] [address] [place] [address]
--- OUTSIDE RECORDS SUMMARY | 2024-05-23 05:43 | External Medical Summary ---
Author Name Unknown Address Unknown Organization K01:LABORATORY [facility] - [address] [place] [address] Laboratory Report Ordering Provider Test Date Status TREMAINE POLANCO 02/15/2024 05:17:00 Final Observation Date Value Abnormality Reference (Units ) Status T4, Total 02/15/2024 05:17:00 7.0 4.6-12.0 ( ug/dL) Final Performing Location LABORATORY [facility] - [address] [place] [address]
--- OUTSIDE RECORDS SUMMARY | 2024-05-23 05:43 | External Medical Summary ---
Author Name Unknown Address Unknown Organization K01:[place]ORY [facility] [place] - [facility] [address] Laboratory Report Ordering Provider Test Date Status KAMILA ERIC 02/16/2024 03:38:00 Final Observation Date Value Abnormality Reference (Units ) Status WBC, Total 02/16/2024 03:38:00 11.92 Above high normal 4.00-10.80 (K/uL) Final RBC 02/16/2024 03:38:00 4.86 4.50-5.25 (M/uL) Final Hemoglobin 02/16/2024 03:38:00 13.2 Below low normal 14.0-16.8 (g/dL) Final HCT 02/16/2024 03:38:00 42.8 40.0-48.4 (%) Final MCV 02/16/2024 03:38:00 88.1 82.0-99.5 (fL) Final MCH 02/16/2024 03:38:00 27.2 27.0-34.0 (pg) Final MCHC 02/16/2024 03:38:00 30.8 32.0-36.0 (g/dL) Final RDW 02/16/2024 03:38:00 16.0 11.5-15.5 (%) Final Platelets 02/16/2024 03:38:00 176 140-400 (K/uL) Final MPV 02/16/2024 03:38:00 11.1 6.6-11.1 (fL) Final Nucleated erythrocytes/100 leukocytes [Ratio] in Blood by Automated count 02/16/2024 03:38:00 0 <=0 (/100 WBCs) Final Performing Location LABORATORY [facility] [place] - [address] [facility] [address]
--- OUTSIDE RECORDS SUMMARY | 2024-05-23 05:43 | External Medical Summary ---
Author Name Unknown Address Unknown Organization : Laboratory Report Ordering Provider Test Date Status JUAN OCAMPO 02/16/2024 06:12:02 Final Observation Date Value Abnormality Reference (Units ) Status Glucose Point of Care 02/16/2024 06:12:02 93 70-120 (mg/dL) Final Performing Location
--- OUTSIDE RECORDS SUMMARY | 2024-05-23 05:43 | External Medical Summary ---
Author Name Unknown Address Unknown Organization K01:[place] [facility] [place] [address] [facility] [address] Laboratory Report Ordering Provider Test Date Status TREMAINE POLANCO 02/16/2024 01:41:57 Final pre-op blood gas on room air Observation Date Value Abnormality Reference (Units ) Status Body temperature 02/16/2024 01:41:57 37.0 (C) Final pH of Arterial blood 02/16/2024 01:41:57 7.411 7.350-7.450 (units) Final Carbon dioxide [Partial pressure] in Arterial blood 02/16/2024 01:41:57 40.0 35.0-45.0 (mmHg) Final Oxygen [Partial pressure] in Arterial blood 02/16/2024 01:41:57 72.2 Below low normal 75.0-100.0 (mmHg) Final Base excess, Arterial 02/16/2024 01:41:57 0.8 -2.0-2.0 (mmol/L) Final Hemoglobin [Mass/volume] in Blood by Oximetry 02/16/2024 01:41:57 13.2 Below low normal 14.0-16.8 (g/dL) Final Oxyhemoglobin, Arterial (FO2HB) 02/16/2024 01:41:57 93.6 Below low normal 94.0-99.0 (% total Hgb) Final Carboxyhemoglobin 02/16/2024 01:41:57 1.3 <=1.5 (% total Hgb) Final Smokers: 0-9.0 % Methemoglobin 02/16/2024 01:41:57 0.4 <=1.5 (% total Hgb) Final Deoxyhemoglobin/Hemoglobin.t otal in Arterial blood 02/16/2024 01:41:57 4.7 0.0-5 .0 (% total Hgb) Final Oxygen content in Arterial blood 02/16/2024 01:41:57 17.4 15.0-24.0 (%vol) Amber l Oxygen/Total gas setting [Volume Fraction] Ventilator 02/16/2024 01:41:57 Room air (%) Final O2 FLOW, ARTERIAL - [facility] 02/16/2024 01:41:57 Room air (L/min) Final Bicarbonate, Venous, POC (i-STAT) 02/16/2024 01:41:57 24.9 23.0-31.0 (mmol/L) Fi [facility] Performing Location LABORATORY [facility] [place] [address] [facility] [address]
--- OUTSIDE RECORDS SUMMARY | 2024-05-23 05:43 | External Medical Summary ---
Author Name Unknown Address Unknown Organization K01:LABORATORY [facility] - [address] [place] [address] Laboratory Report Ordering Provider Test Date Status RUBIO WINN 02/15/2024 05:17:00 Final Observation Date Value Abnormality Reference (Units ) Status Magnesium 02/15/2024 05:17:00 2.3 1.5-2.6 (m g/dL) Final Performing Location LABORATORY [facility] - [address] [place] [address]
--- OUTSIDE RECORDS SUMMARY | 2024-05-23 05:43 | External Medical Summary | Summary of Care ---
Author Name Unknown Organization [facility] Address [address] [place] [address] Phone [phone] Care Team Providers Care [place] [employer] Pa[place] Name Role Phone Rashawn Obrien MD Primary Care Provider [phone] Reason for Visit * Auth/Cert Specialty Diagnoses / Procedures Referred By Claudia t Referred To Contact Diagnoses A.S., angina Jhradha, Eladio Hardy MD [address] [place] [address] Phone: tel: fax: [facility], [facility] [place] [address] [place] [address] Referral ID Status Reason Start Date Expiration Date Visits Re quested Visits Authorized [id number] Encounter Details Date Type Department Care Team (Latest Contact Info) Description 02/14/2024 8:57 AM EST - 02/14/2024 11:59 PM EST Hospital Encounter Cardiac Studies [facility] [address] [place] [address] Discharge Disposition: Home - Self Care Allergies No known active allergiesdocumented as of this encounter (statuses as of 02/15/2024) Medications Ascorbic Acid (VITAMIN C) 500 MG [...] as of this encounter (statuses as of 02/15/2024) Active Problems Problem Noted Date Diagnosed Date Unstable angina 02/14/2024 Nonrheumatic aortic valve stenosis 08/11/2022 Retinal edema [...] as of this encounter (statuses as of 02/15/2024) Resolved Problems Problem Noted Date Diagnosed Date [...] as of this encounter (statuses as of 02/15/2024) Immunizations Name Administration Dates Next Due COVID-19 [...] Industry Job Start Date Job End Date [employer] Not on file Not on file Not [...] Description 05/06/2024 8:20 AM EST Office Visit [facility] [address] Baut[address] [phone] Rashawn Obrien MD [address] [place] [address] 06/17/2024 7:15 AM EDT Cardiac Studies Cardiac Studies, [facility] [address] [facility] [address] [place] [address] 07/05/2024 8:00 AM EDT Office Visit Cardiology, [facility] [address] [place] [address] Idalmis Mccrary CRNP [address] [facility] [place] [id number] Scheduled Procedures Name Priority Associated Diagnoses Date/Ti me CORONARY ANGIOGRAPHY W/LEFT HEART CATH Unstable angina (HCC) 02/15/2024 8:50 AM EST COLONOSCOPY FLEXIBLE PROXIMAL DIAGNOSTIC Recall History of colon polyps Health Maintenance Due Date Last Done Comments Cologuard 01/09/1996 Fecal Occult Blood Test 01/09/1996 Sigmoidoscopy 01/09/1996 Zoster Vaccines (2 of 3) 07/14/2012 05/19/2012 Depression Screening 10/18/2020 10/19/2019 Colonoscopy 07/01/2022 07/01/2017, 06/08, 02/11/2013, Additional history exists Colorectal Cancer Screening 07/01/2022 Adult Wellness Visit 01/23/2023 01/23/2022 COVID-19 Vaccine ( season) 2023 05/17/2020, 04/17/2020 GFR 02/14/2025 02/15/2024, 10/2023, 04/21/2023, Additional history exists Albumin/Creatinine Ratio 02/09/2026 023, [...] Procedure Name Priority Date/Time Associated Diagnosis Comments ECHO, COMPLETE (2D), TRANS-THORACIC Routine 02/14/2024 10:58 AM EST Unstable angina (HCC) documented in this encounter Visit Diagnoses Diagnosis Unstable angina (HCC)- Primary Intermediate coronary syndrome Nonrheumatic aortic valve stenosis Aortic valve disorders Paroxysmal atrial fibrillation (HCC) Atrial fibrillation Hypertrophic cardiomyopathy (HCC) Other hypertrophic cardiomyopathy documented in this encounter Administered Medications Inactive Administered Medications - up to 3 most recent administrations Medication Order MAR Action Action Date Dose Rate Site perflutren lipid microsphere inj SUSP 1.956 mg 1.956 mg, Intravenous, ONCE PRN Other, For Echo Only - Suboptimal Echo Images, Starting on 02/14/24 at 1002, Until 02/14/24 at 1201, For 2 hours, Administer IVP over 45 seconds, Cardiac Studies_HODHOVIndications:Unstab le angina (HCC),Nonrheumatic aortic valve stenosis,Paroxysmal atrial fibrillation (HCC),Hypertrophic cardiomyopathy (HCC) Given 02/14/2024 10:03 AM EST 1.956 mg documented in this encounter Advance Directives * Full Code (Latest Code Status on File) Date Activated Date Inactivated Comments 02/13/2024 7:20 PM This order ref lects the patients wishes and were consensually agreed upon. Question Answer Comments Discussion of Advance Directives occurred with: Patient Care Teams [employer] Relationship Specialty Start Date End Date Rashawn Obrien MD [address] [place], [place] [phone] PCP - General 05/26/07 documented as of this encounter
--- OUTSIDE RECORDS SUMMARY | 2024-05-23 05:43 | External Medical Summary ---
Author Name Unknown Address Unknown Organization K01:LAB[place]ATORY [facility] [place] [address] [place] [address] Laboratory Report Ordering Provider Test Date Status KAMILA ERIC 02/16/2024 03:38:00 Final Warfarin Therapy
INR: 2 .0-3.0 conventional anticoagulation
INR: 2.5- 3.5 high intensity anticoagulation Observation Date Value Abnormality Reference (Units ) Status PT 02/16/2024 03:38:00 14.6 11.6-15.2 (seconds) Final INR 02/16/2024 03:38:00 1.1 0.8-1.2 Final Performing Location LABORATORY [facility] - [address] [place] [address]
--- OUTSIDE RECORDS SUMMARY | 2024-05-23 05:43 | External Medical Summary ---
Author Name Unknown Address Unknown Organization K01:LABORATORY [facility] [place] - [address] [facility] [address] Laboratory Report Ordering Provider Test Date Status KAMILA ERIC 02/15/2024 05:17:00 Final Observation Date Value Abnormality Reference (Units ) Status WBC, Total 02/15/2024 05:17:00 10.63 4.00-10.80 (K/uL) Final RBC 02/15/2024 05:17:00 5.30 4.50-5.25 (M/uL) Final Hemoglobin 02/15/2024 05:17:00 14.4 14.0-16.8 (g/dL) Final HCT 02/15/2024 05:17:00 47.2 40.0-48.4 (%) Final MCV 02/15/2024 05:17:00 89.1 82.0-99.5 (fL) Final MCH 02/15/2024 05:17:00 27.2 27.0-34.0 (pg) Final MCHC 02/15/2024 05:17:00 30.5 32.0-36.0 (g/dL) Final RDW 02/15/2024 05:17:00 15.9 11.5-15.5 (%) Final Platelets 02/15/2024 05:17:00 187 140-400 (K/uL) Final MPV 02/15/2024 05:17:00 10.3 6.6-11.1 (fL) Final Nucleated erythrocytes/100 leukocytes [Ratio] in Blood by Automated count 02/15/2024 05:17:00 0 <=0 (/100 WBCs) Final Performing Location LABORATORY [facility] [place] [address] [place] [address]
--- OUTSIDE RECORDS SUMMARY | 2024-05-23 05:43 | External Medical Summary ---
Author Name Unknown Address Unknown Organization : Laboratory Report Ordering Provider Test Date Status JUAN OCAMPO 02/15/2024 09:32:30 Final NORMAL (NON-HEPARINIZED) 74- 137 SECONDS
HEPARINIZED 200+ SECONDS
CRITICAL GREATER THAN 1000 SECONDS
null Observation Date Value Abnormality Reference (Units ) Status Kaolin activated time [Units/volume] in Blood 02/15/2024 09:32:30 297 50-1000 (secs) Final Performing Location
--- OUTSIDE RECORDS SUMMARY | 2024-05-23 05:43 | External Medical Summary ---
Author Name Unknown Address Unknown Organization K01:LABORATORY [place] [address] [facility] [address] [place] [address] Laboratory Report Ordering Provider Test Date Status TREMAINE POLANCO 02/15/2024 14:13:08 Final Observation Date Value Abnormality Reference (Units ) Status Staphylococcus aureus methicillin resistance SCCmec [Presence] in Nose by ITA with probe detection 02/15/2024 14:13:08 Negative Negative Final No Methicillin resistant Sta phylococcus aureus detected by PCR (amplified probe). Methicillin susceptible Stap hylococcus aureus DNA [Presence] in Specimen by ITA with probe detection 02/15/2024 14:13:08 Negative Negative Final No Staphylococcus aureus det ected by PCR (amplified probe). Performing Location [place] [facility] [place] [address] [place] [address]
--- OUTSIDE RECORDS SUMMARY | 2024-05-23 05:43 | External Medical Summary ---
Author Name Unknown Address Unknown Organization K01:LABORATORY [facility] [place] [facility] - [address] [place] [address] Laboratory Report Ordering Provider Test Date Status TREMAINE POLANCO 02/15/2024 16:36:00 Final Observation Date Value Abnormality Reference (Units ) Status ABO 02/15/2024 16:36:00 A Final RH 02/15/2024 16:36:00 Positive Final RED BLOOD CELL ANTIBODY SCREEN 02/15/2024 16:36:00 Negative Final SPECIMEN EXPIRATION DATE 02/15/2024 16:36:00 02/18/2024 23:59 Final Performing Location LABORATORY [facility] [place] [facility] - [address] [place] [address]
--- OUTSIDE RECORDS SUMMARY | 2024-05-23 05:43 | External Medical Summary ---
Author Name Unknown Address Unknown Organization K01:LABORATORY [facility] [place] - [address] [place] [address] Laboratory Report Ordering Provider Test Date Status KAMILA ERIC 02/15/2024 05:17:00 Final Warfarin Therapy
INR: 2 .0-3.0 conventional anticoagulation
INR: 2.5- 3.5 high intensity anticoagulation Observation Date Value Abnormality Reference (Units ) Status PT 02/15/2024 05:17:00 13.9 11.6-15.2 (seconds) Final INR 02/15/2024 05:17:00 1.1 0.8-1.2 Final Performing Location LABORATORY [facility] - [address] [place] [address]
--- OUTSIDE RECORDS SUMMARY | 2024-05-23 05:43 | External Medical Summary ---
Author Name Unknown Address Unknown Organization K01:LABORATORY [facility] [place] - [address] [facility] [address] Laboratory Report Ordering Provider Test Date Status TREMAINE POLANCO 02/15/2024 16:52:58 Final Observation Date Value Abnormality Reference (Units ) Status Color of Urine by Auto 02/15/2024 16:52:58 Light Yellow Colorless, Light Yellow, Yellow, Dark Yellow Final Clarity, Urine 02/15/2024 16:52:58 Clear Clear Final Glucose [Mass/volume] in Urine by Automated test strip 02/15/2024 16:52:58 Negative Negative (mg/dL) Final Bilirubin.total [Presence] in Urine by Automated test strip 02/15/2024 16:52:58 Negative Negative Final Ketones [Mass/volume] in Urine by Automated test strip 02/15/2024 16:52:58 Negative Negative (mg/dL) Final Specific gravity, Urine 02/15/2024 16:52:58 1.023 1.003-1.030 Final Hemoglobin [Presence] in Urine by Automated test strip 02/15/2024 16:52:58 Negative Negative Final pH, Urine 02/15/2024 16:52:58 6.5 5.0-7.5 (Units) Final Protein [Mass/volume] in Urine by Automated test strip 02/15/2024 16:52:58 Negative Negative (mg/dL) Final Urobilinogen [Mass/volume] in Urine by Automated test strip 02/15/2024 16:52:58 Normal Normal (mg/dL) Final Nitrite [Presence] in Urine by Automated test strip 02/15/2024 16:52:58 Negative Negative Final Leukocyte esterase [Presence] in Urine by Automated test strip 02/15/2024 16:52:58 Trace Abnormal Negative Final RBC, Urine 02/15/2024 16:52:58 0-2 0-2 (/HPF) Final WBC, Urine 02/15/2024 16:52:58 3-5 Abnormal 0-2 (/HPF) Final Bacteria [#/area] in Urine sediment by Microscopy high power field 02/15/2024 16:52:58 0-25 0-25 (/HPF) Final Performing Location LABORATORY [facility] [place] - [facility] [address] [facility] [address]
--- OUTSIDE RECORDS SUMMARY | 2024-05-23 05:43 | External Medical Summary ---
Author Name Unknown Address Unknown Organization [id number]:[facility] [place] - [address] [facility] [address] [facility] [address] Laboratory Report Ordering Provider Test Date Status JUAN OCAMPO 02/14/2024 11:09:00 Final Anticoagulation may affect t esting. Refer to [facility] Test Catalog for a list of effects. Observation Date Value Abnormality Reference (Units ) Status aPTT panel - Platelet poor plasma 02/14/2024 11:09:00 53 Above high normal 21-38 (seconds) Final Performing Location [facility] [place] [address] [place] [address]
--- OUTSIDE RECORDS SUMMARY | 2024-05-23 05:43 | External Medical Summary ---
Author Name Unknown Address Unknown Organization K01:[place] [facility] [place] [facility] [address] [facility] [place] [address] Laboratory Report Ordering Provider Test Date Status KAMILA ERIC 02/16/2024 03:38:00 Final Observation Date Value Abnormality Reference (Units ) Status BUN 02/16/2024 03:38:00 18 6-20 (mg/dL) Final Creatinine 02/16/2024 03:38:00 1.0 0.6-1.2 (mg/dL) Final Glomerular filtration rate/1.73 sq M.predicted [Volume Rate/Area] in Serum, Plasma or Blood by Creatinine-based formula (CKD-EPI) 02/16/2024 03:38:00 79 >=60 (mL/min) Final eGFR is calculated based on the CKD-EPI 2020 equation. Sodium 02/16/2024 03:38:00 139 135-146 (m mol/L) Final Potassium 02/16/2024 03:38:00 4.2 3.5-5.1 (m mol/L) Final Cl 02/16/2024 03:38:00 103 98-107 (mm ol/L) Final CO2 02/16/2024 03:38:00 24 22-32 (mmo l/L) Final Anion gap 02/16/2024 03:38:00 12 7-15 (mmol /L) Final Glucose 02/16/2024 03:38:00 89 70-120 (mg /dL) Final Calcium 02/16/2024 03:38:00 9.3 8.4-10.2 ( mg/dL) Final Performing Location [place] [facility] [place] [address] [place] [address]
--- OUTSIDE RECORDS SUMMARY | 2024-05-23 05:43 | External Medical Summary ---
Author Name Unknown Address Unknown Organization K01:LABORATORY [facility] - [address] [place] [address] Laboratory Report Ordering Provider Test Date Status KAMILA ERIC 02/14/2024 03:35:00 Final Observation Date Value Abnormality Reference (Units ) Status HbA1C 02/14/2024 03:35:00 5.5 4.0-5.6 (% ) Final The use of HbA1c to monitor glycemic status is based on normal hemoglobin and HbA composition. This test should not be used in patients with abnormal hemoglobin that affects the half life of the red blood cell or the in vivo glycation rates. Glucose, estimated average 02/14/2024 03:35:00 111 <126 (mg/dL) Final Performing Location LAB[facility]ATORY [facility] [place] [address] [address]
--- OUTSIDE RECORDS SUMMARY | 2024-05-23 05:43 | External Medical Summary ---
Author Name Unknown Address Unknown Organization K01[place] [facility] [place] [address] [facility] [place] [facility] [address] Laboratory Report Ordering Provider Test Date Status JUAN OCAMPO 02/15/2024 16:36:00 Final Anticoagulation may affect t esting. Refer to [facility] Test Catalog for a list of effects. Observation Date Value Abnormality Reference (Units ) Status aPTT panel - Platelet poor plasma 02/15/2024 16:36:00 185 Above upper panic limits 21-38 (seconds) Final Performing Location [place] [facility] [place] [address] [place] [address]
--- OUTSIDE RECORDS SUMMARY | 2024-05-23 05:43 | External Medical Summary ---
Author Name Unknown Address Unknown Organization K01:LABORATORY [facility] [place] - [address] [place] [address] Laboratory Report Ordering Provider Test Date Status KAMILA ERIC 02/14/2024 03:35:00 Final Observation Date Value Abnormality Reference (Units ) Status WBC, Total 02/14/2024 03:35:00 10.75 4.00-10.80 (K/uL) Final RBC 02/14/2024 03:35:00 4.78 4.50-5.25 (M/uL) Final Hemoglobin 02/14/2024 03:35:00 12.8 Below low normal 14.0-16.8 (g/dL) Final HCT 02/14/2024 03:35:00 42.5 40.0-48.4 (%) Final MCV 02/14/2024 03:35:00 88.9 82.0-99.5 (fL) Final MCH 02/14/2024 03:35:00 26.8 27.0-34.0 (pg) Final MCHC 02/14/2024 03:35:00 30.1 32.0-36.0 (g/dL) Final RDW 02/14/2024 03:35:00 15.9 11.5-15.5 (%) Final Platelets 02/14/2024 03:35:00 194 140-400 (K/uL) Final MPV 02/14/2024 03:35:00 10.7 6.6-11.1 (fL) Final Nucleated erythrocytes/100 leukocytes [Ratio] in Blood by Automated count 02/14/2024 03:35:00 0 <=0 (/100 WBCs) Final Performing Location LABORATORY [facility] [place] - [address] [address]
--- OUTSIDE RECORDS SUMMARY | 2024-05-23 05:43 | External Medical Summary ---
Author Name Unknown Address Unknown Organization K01:[facility] [place] - [address] [place] [address] Laboratory Report Ordering Provider Test Date Status KAMILA ERIC 02/13/2024 20:34:00 Final Anticoagulation may affect t esting. Refer to [facility] Test Catalog for a list of effects. Observation Date Value Abnormality Reference (Units ) Status aPTT panel - Platelet poor plasma 02/13/2024 20:34:00 30 21-38 (seconds) Final Performing Location [facility] [place] - [address] [address]
--- OUTSIDE RECORDS SUMMARY | 2024-05-23 05:43 | External Medical Summary | Summary of Care ---
Author Name Unknown Organization [facility] Address [address] [place] [address] Phone [phone] Care Team Providers Care Ammonia Box Operator Name Role Phone Rashawn Obrien MD Primary Care Provider [phone] Encounter Details Date Type Department Care Team (Late st Contact Info) Description 02/15/2024 Population Health External Data Unspecified Department Allergies [...] mRNA, LNP-s, No Pre serve, 2-Dose Series ([employer]) 05/17/2020,04/17/2020 Pneumococcal Conjugate Vacc, 13 Valent (Prevnar) [...] Industry Job Start Date Job End Date [employer] Not on file Not on file Not [...] Description 05/06/2024 8:20 AM EST Office Visit [facility] [address] [place] [id number] Rash[facility]rien [facility] [address] [facility] [place] [address] 06/17/2024 7:15 AM EDT Cardiac Studies Cardiac Studies, [facility] [address] [facility] [place] [address] 07/05/2024 8:00 AM EDT Office Visit Cardiology, [facility] [address] [facility] [place] [address] Idalmis Mccrary CRNP [address] [place] [address] [place] [id number] Scheduled Procedures Name Priority Associated Diagnoses Date/Ti me CORONARY ANGIOGRAPHY W/LEFT HEART CATH Unstable angina (HCC) COLONOSCOPY FLEXIBLE PROXIMAL DIAGNOSTIC Recall History of [...] Not on filedocumented as of this encounter Advance Directives * Full Code (Latest Code Status on File) Date Activated Date Inactivated Comments 02/13/2024 7:20 PM This order ref lects the patients wishes and were consensually agreed upon. Question Answer Comments Discussion of Advance Directives occurred with: Patient Care Teams Ammonia Box Operator Relationship Specialty Start Date End Date Rashawn Obrien MD [address] [place] [place] [address] PCP - General 05/26/07 documented as of this encounter
--- OUTSIDE RECORDS SUMMARY | 2024-05-23 05:43 | External Medical Summary ---
Author Name Unknown Address Unknown Organization K01:[place] [facility] [place] [address] [place] [address] Laboratory Report Ordering Provider Test Date Status TREMAINE POLANCO 02/15/2024 05:17:00 Final Observation Date Value Abnormality Reference (Units ) Status Retic, % (auto) 02/15/2024 05:17:00 1.79 0.80-1.90 (%) Final Reticulocytes, Absolute 02/15/2024 05:17:00 95.2 31.3-100.1 (K/uL) Final Reticulocyte fraction, immature 02/15/2024 05:17:00 20.8 Above high normal 2.5-20.6 (%) Final Reticulocyte HGB 02/15/2024 05:17:00 30.7 29.7-37.4 (pg) Final Performing Location LABORATORY [facility] - [address] [place] [address]
--- NOTE | 2024-05-23 05:45 | Emergency Department Note ---
Impression & Plan Acute respiratory failure with hypoxia, Hypertensive emergency, Hypervolemia, Atrial fibrillation ED Provider Note NAME: SHAY ROOT AGE: 74 SEX: M : 1950 ARRIVES VIA: Walk-In INFORMANT: Patient ED PROVIDER(S): Zelalem Caraballo MD CHIEF COMPLAINT: Shortness of breath. PLAN: Disposition: Admit MEDICAL DECISION MAKING: The patient is a pleasant 74y/o gentleman with a past medical history of hypertension, hyperlipidemia, PAF on Eliquis, CAD, aortic stenosis status post CABG and aortic valve replacement with bioprosthetic aortic valve in February 2024 who presents to the emergency department via walk-in accompanied by his for worsening shortness of breath over the past couple of weeks which became acutely worse over the past 2 days and in particular last night/early this morning where he was unable to catch his breath. Patient reports that he was seen by his primary care doctor around the time his symptoms had began but they were much more mild and there were no particular concerns. He reports his blood pressure has been elevated since his surgery and they have been adjusting his medications. He denies any fevers, productive sputum, GI or symptoms. Patient previously had drank alcohol on a regular basis but has not had any alcohol since January per his report. Patient reports a remote smoking history. On evaluation patient is fatigued, uncomfortable with mild respiratory distress, afebrile with blood pressure in the 190s/80s and vital signs otherwise stable. He exhibits mild-moderate increased work of breathing. Lungs with diminished breath sounds at the bases and otherwise clear. He appears hypervolemic with scant BLE edema. EKG demonstrates atrial fibrillation with rate of 71bpm with ST and T wave abnormality that are similar to prior without overt ST elevation or depression. Chest x-ray demonstrates bilateral lower lung field airspace opacities which are nonspecific and may reflect pneumonia. WBC 12.4 K with neutrophilia but no left shift, nonspecific. H/H10.3/35.6 without recent for comparison. Platelets within normal limits. Chemistry without metabolic acidosis. High styptic troponin 13.8, within normal limits. BNP is 426 consistent with patient's hypervolemic appearance. Lipase is not elevated. Respiratory BioFire was negative. Procalcitonin pending. Upon reevaluation the patient was significantly proved on BiPAP with resolved work of breathing. Blood pressure also with trending improvement. 20 mg of IV Lasix ordered for diuresis. Patient is agree with plan for admission for further management. Case was discussed with Dr. King, [facility] hospitalist, who will evaluate the patient for admission. Further management per admitting team. Triage Nursing notes reviewed and agree them. Prior/external medical records reviewed Vital Signs: reviewed Differential diagnosis: Reactive airway disease, pneumonia, pneumothorax, COPD, CHF, infections, cardiac ischemia, pulmonary embolism, musculoskeletal, gastrointestinal, as well as other pathologies. ER treatment provided: See below. Diagnostics interpreted by me: ECG: Atrial fibrillation, 71 bpm, no ectopy, ST and T wave abnormality, similar to prior without overt ST elevation or depression, QTc 441, QRS 78. Cardiac Monitoring: An order for continuous cardiac monitoring was placed and demonstrated Atrial fibrillation, 71 bpm, no ectopy. Laboratory studies: See below Imaging studies: See below [facility]ation([facility] HPI: The patient is a pleasant 74y/o gentleman with a past medical history of hypertension, hyperlipidemia, PAF on Eliquis, CAD, aortic stenosis status post CABG and aortic valve replacement with bioprosthetic aortic valve in February 2024 who presents to the emergency department via walk-in accompanied by his for worsening shortness of breath over the past couple of weeks which became acutely worse over the past 2 days and in particular last night/early this morning where he was unable to catch his breath. Patient reports that he was seen by his primary care doctor around the time his symptoms had began but they were much more mild and there were no particular concerns. He reports his blood pressure has been elevated since his surgery and they have been adjusting his medications. He denies any fevers, productive sputum, GI or symptoms. Patient previously had drank alcohol on a regular basis but has not had any alcohol since January per his report. Patient reports a remote smoking history. ROS: See above HPI for pertinent positives & negatives. A total of 10 systems reviewed and were otherwise negative. VITALS:See Below PHYSICAL EXAMINATION: GENERAL: Awake, alert, uncomfortable-appearing, in mild respiratory distress HENT: Normocephalic, atraumatic. Oropharynx unremarkable. EYES: Normal conjunctiva. Sclera non-icteric. NECK: Supple. No nuchal rigidity. FROM. No JVD. RESPIRATORY: Diminished at bilateral bases and otherwise clear to auscultation. Mild-moderate increased WOB. CARDIAC: Regular rate, irregular rhythm. Extremities warm and well perfused. Pulses equal. ABDOMEN: Soft, non-distended. No tenderness to palpation. No rebound or guarding. No masses. MUSCULOSKELETAL: Chest examination reveals no tenderness. The back is symmetrical on inspection without obvious abnormality. There is no CVA tenderness to palpation. No joint edema. LOWER EXTREMITIES: Calves are equal size bilaterally and non-tender. Scant BLE edema. No discoloration. NEURO: Normal sensorium. No sensory or motor deficits noted. SKIN: No rash or jaundice noted. ED COURSE: Critical Care: I have personally spent greater than 35 minutes of critical care time in the direct management of this patient. This includes bedside care, interpretation of diagnostic studies, and testing, discussion with consultants, patient, and family members, and other required patient management activities. This 35 minutes is in excess of all separately billable procedures. Zelalem Caraballo MD Past Med/Surg History Problem List (Updated 05/23/24 @ 07:59 by Zelalem Caraballo MD) Atrial fibrillation (Acute) Hypervolemia (Acute) Hypertensive emergency (Acute) Acute respiratory failure with hypoxia (Acute) Chest pain (Acute) Moderate aortic valve stenosis Atrial flutter Atypical chest pain (Acute) Encounter for pre-operative examination Obesity Medical History Heart valve disease on [facility] for this per patient for prevention Gout CAD (coronary artery disease) follows Dr. Concepcion Hyperlipidemia Hypertension Surgical History History of tooth extraction History of colonoscopy Hx of bilateral cataract extraction Social History Smoking Status: Former smoker Second Hand Exposure: No; Do You Dip or Chew Tobacco: No; Hx Alcohol Use: No Hx Substance Use: No Preferred Language: Ukrainian Communication Ability: Effective Aircraft Navigator Required: No Beliefs That Will Affect Care: None Current Living Situation: Spouse Current Living Situation Comment: Mobile Home with Family current occupation: Retired Feels Safe at Home: Yes Assistive Devices: None Allergies Allergies Allergy/AdvReac Type Severity Reaction Status Date / Time No Known Allergies Allergy Unknown Verified 10/15/21 06:55 Home Meds Home Medications Medication Instructions Recorded Confirmed allopurinol 300 mg tablet 300 mg PO QAM 12/07/19 02/09/24 atorvastatin 40 mg tablet 40 mg PO QAM 12/07/19 02/09/24 metoprolol succinate 100 mg 100 mg PO QAM 12/07/19 02/09/24 tablet,extended release 24 hr losartan 100 mg tablet 100 mg PO DAILY 05/06/23 02/09/24 multivit,Ca,min-iron 8 mg-folic 1 tab PO DAILY 05/06/23 02/09/24 acid 200 mcg-lycopene 600 mcg tablet (Centrum Men) prednisolone acetate 1 % eye 1 drp ophthalmic (eye) DAILY 05/06/23 02/09/24 drops,suspension sildenafil 100 mg tablet 100 mg PO DAILY PRN Erectile 05/06/23 02/09/24 Dysfunction apixaban 5 mg tablet (Eliquis) 5 mg PO BID 02/09/24 02/09/24 Previous Rx's Medication Instructions Recorded aspirin 81 mg tablet,delayed 81 mg PO QAM #30 tabs 02/11/24 release Results & Data (ED) Vital Signs Vital Signs - 24 hr 05/23/24 05:33 05/23/24 05:42 05/23/24 05:42 Temperature 37 C Temperature Source Temporal Artery Scan Pulse Rate 78 Pulse Rate [Apical] 81 Pulse Rate from SpO2 Sensor Pulse Rhythm Pulse Rhythm [Apical] Regular Pulse Strength [Apical] Normal Respiratory Rate 19 18 Respiratory Effort / Characteristics Non-Labored Spontaneous Non-Labored Spontaneous Respiratory Depth Normal Normal Respiratory Pattern Regular Regular Blood Pressure 199/88 H Blood Pressure [Right Arm] 172/94 H Blood Pressure Mean 125 Blood Pressure Mean [Right Arm] 120 Blood Pressure Position [Right Arm] Semi-fowlers Pulse Oximetry 91 87 L 96 Oxygen Delivery Method Room Air Room Air Nasal Cannula Oxygen Flow Rate 3 Fraction of Inspired Oxygen Sepsis Recent Fever Within 48 Hours No Sepsis New/Unexplained Change in Mental Status No Sepsis Action Taken by Nursing No Action Required Oxygen Flow Rate - Titration 3 Pulse Oximetry Post Tiitration 96 05/23/24 05:42 05/23/24 05:50 05/23/24 06:09 Temperature Temperature Source Pulse Rate 81 78 77 Pulse Rate [Apical] Pulse Rate from SpO2 Sensor Pulse Rhythm Regular Pulse Rhythm [Apical] Pulse Strength [Apical] Respiratory Rate 18 22 Respiratory Effort / Characteristics Non-Labored Spontaneous Respiratory Depth Normal Respiratory Pattern Regular Blood Pressure Blood Pressure [Right Arm] Blood Pressure Mean Blood Pressure Mean [Right Arm] Blood Pressure Position [Right Arm] Pulse Oximetry 96 98 Oxygen Delivery Method Nasal Cannula Oxygen Flow Rate 3 Fraction of Inspired Oxygen 30 Sepsis Recent Fever Within 48 Hours Sepsis New/Unexplained Change in Mental Status Sepsis Action Taken by Nursing Oxygen Flow Rate - Titration Pulse Oximetry Post Tiitration 05/23/24 06:27 05/23/24 07:03 05/23/24 07:09 Temperature Temperature Source Pulse Rate 71 Pulse Rate [Apical] Pulse Rate from SpO2 Sensor 72 Pulse Rhythm Pulse Rhythm [Apical] Pulse Strength [Apical] Respiratory Rate 19 Respiratory Effort / Characteristics Non-Labored Spontaneous Respiratory Depth Normal Respiratory Pattern Blood Pressure 169/84 H Blood Pressure [Right Arm] Blood Pressure Mean 131 Blood Pressure Mean [Right Arm] Blood Pressure Position [Right Arm] Pulse Oximetry 98 Oxygen Delivery Method BiPAP Oxygen Flow Rate Fraction of Inspired Oxygen Sepsis Recent Fever Within 48 Hours Sepsis New/Unexplained Change in Mental Status Sepsis Action Taken by Nursing Oxygen Flow Rate - Titration Pulse Oximetry Post Tiitration Laboratory Data Attestation: I reviewed the patient's lab results. 05/23/24 06:05 05/23/24 06:05 Lab Results 05/23/24 Range/Units 06:05 WBC 12.41 H (4.8-10.8) K/ul RBC 4.60 L (4.70-6.10) M/uL Hgb 10.3 L (14.0-18.0) g/dl Hct 35.6 L (42.0-52.0) % MCV 77.4 L (80.0-100.0) fL MCH 22.4 L (25.0-34.0) pg MCHC 28.9 L (32.0-36.0) g/dL RDW Std Deviation 51.8 H (36.4-46.3) fL RDW Coeff of Shahnaz 18.8 H (11.5-14.5) % Plt Count 248 (130-400) K/uL MPV 10.2 (9.4-12.4) fL Immature Gran % (Auto) 0.7 % Neut % (Auto) 77.8 % Lymph % (Auto) 10.6 % [place] % (Auto) 8.2 % Eos % (Auto) 1.9 % Baso % (Auto) 0.8 % Neut # (Auto) 9.64 H (1.40-6.50) K/uL Lymph # (Auto) 1.32 (1.20-3.40) K/uL [place] # (Auto) 1.02 H (0.11-0.59) K/uL Eos # (Auto) 0.24 (0.00-0.50) K/uL Baso # (Auto) 0.10 (0.00-0.20) K/uL Immature Gran # (Auto) 0.09 (0.01-0.20) K/uL PT 11.9 (9.0-12.0) Seconds INR 1.1 (0.9-1.1) Sodium 142 (136-145) mmol/L Potassium 4.2 (3.5-5.1) mmol/L Chloride 107 (98-107) mmol/L Carbon Dioxide 30 (21-32) mmol/L Anion Gap 5 (3-11) BUN 16 (6-23) mg/dl Creatinine 0.88 (0.6-1.4) mg/dl Est Cr Clr Drug Dosing 84.5 ml/min eGFR 90.80 BUN/Creatinine Ratio 18.2 (10-20) Glucose 106 H (70-99(Fasting)) mg/dl Calcium 9.6 (8.6-10.3) mg/dl Magnesium 1.8 (1.7-2.4) mg/dl Total Bilirubin 0.9 (0.2-1.0) mg/dl AST 16 (13-39) U/L ALT 12 (7-52) U/L Alkaline Phosphatase 88 (34-104) U/L Troponin I High Sens 13.8 (0-20) pg/ml B-Natriuretic Peptide 426 H (0-100) pg/ml Total Protein 7.4 (6.0-8.3) gm/dl Albumin 4.2 (3.4-5.0) gm/dl Globulin 3.2 (2.5-4.0) gm/dl Albumin/Globulin Ratio 1.3 (0.9-2) Lipase 8 L (11-82) U/L Ethyl Alcohol mg/dL < 10.0 (<10.0) mg/dl Adenovirus (PCR) Not Detected (NotDetected) B. pertussis DNA (PCR) Not Detected (NotDetected) B.parapertussis DNA PCR Not Detected (NotDetected) C. pneumoniae DNA (PCR) Not Detected (NotDetected) Coronavirus OC43 (PCR) Not Detected (NotDetected) Coronavirus HKU1 (PCR) Not Detected (NotDetected) Coronavirus 229E (PCR) Not Detected (NotDetected) SARS-CoV-2 (PCR) Not Detected (NotDetected) Coronavirus NL63 (PCR) Not Detected (NotDetected) Human Metapneumovir PCR Not Detected (NotDetected) Influenza Type A (PCR) Not Detected (NotDetected) Influenza Type B (PCR) Not Detected (NotDetected) M. pneumoniae (PCR) Not Detected (NotDetected) Parainfluenza 1 (PCR) Not Detected (NotDetected) Parainfluenza 2 (PCR) Not Detected (NotDetected) Parainfluenza 3 (PCR) Not Detected (NotDetected) Parainfluenza 4 (PCR) Not Detected (NotDetected) RSV (PCR) Not Detected (NotDetected) Entero/Rhino (PCR) Not Detected (NotDetected) Administered Medications Discontinued Medications Furosemide (Furosemide Inj 20 Mg/2 Ml Vial) 20 mg IV ONE ONE Stop: 05/23/24 07:17 Last Admin: 05/23/24 07:26 Dose: 20 mg Documented By: TNK Imaging Data Radiologist's Impression: Chest X-Ray 05/23/24 05:42 EXAM: XR chest 1V portable CLINICAL HISTORY: Chest pain, nonspecific TECHNIQUE: An X-ray image of the chest is obtained in 1 AP projection. COMPARISON: 02/09/2024 FINDINGS: Pulmonary Parenchyma: Progression of bilateral airspace opacities, mainly seen in the lower zones of the lungs, more prominent on the left side. Obliteration of left costophrenic angle. Right costophrenic angle is unremarkable. Hairline thickening of the minor fissure. Heart and Mediastinum: Cardiomegaly with bilateral hilar congestion. No mediastinal widening or masses. No hilar or mediastinal lymphadenopathy. Bony Thorax: Bony thorax appears intact without fractures or deformities. Sternotomy sutures are noted. Soft Tissues: Soft tissues overlying the chest wall are unremarkable. IMPRESSION: 1. Interval progression of bilateral lower zones airspace opacities. 2. Mild left-sided pleural effusion. 3. Cardiomegaly with bilateral hilar congestion. 4. Comparing the previous x-ray dated 02/09/2024 there is interval progression in the findings. Electronically signed by Duy Ramirez 05-23-2024 07:11 AM Discharge Plan Visit Data Chief Complaint: Chest Pain Stated Complaint: CHEST PAINS, SOB, ED Provider: Zelalem Caraballo Discharge Problem: Acute respiratory failure with hypoxia, Hypertensive emergency, Hypervolemia, Atrial fibrillation Forms Stand Alone Forms: My [facility] [employer] Prescriptions Prescriptions: No Action atorvastatin 40 mg Tablet 40 mg PO QAM metoprolol succinate 100 mg Tablet Extended Release 24 Hr 100 mg PO QAM allopurinol 300 mg Tablet 300 mg PO QAM sildenafil 100 mg Tablet 100 mg PO DAILY PRN (Reason: Erectile Dysfunction) Rx Instructions: administer 30 minutes to 4 hours before activity prednisolone acetate 1 % Drops,Suspension 1 drp OPHTHALMIC (EYE) DAILY Rx Instructions: R eye losartan 100 mg Tablet 100 mg PO DAILY Centrum Men 8 mg iron- 200 mcg-600 mcg Tablet 1 tab PO DAILY Eliquis 5 mg tablet 5 mg PO BID Hold Instructions: Resume on 02/18/24. discuss with road tester when/ if to resume aspirin 81 mg Tablet,Delayed Release (Dr/Ec) 81 mg PO QAM Qty: 30 0RF Referrals Referrals: Rashawn Obrien MD [Primary Care Provider] - Discharge Problem: Hypervolemia Qualifiers: Hypervolemia type: unspecified Qualified Code(s): E87.70 - Fluid overload, unspecified Atrial fibrillation Qualifiers: Atrial fibrillation type: unspecified Qualified Code(s): I48.91 - Unspecified atrial fibrillation
[2024-05-23 06:29] LABS: Basophils % (auto) 0.8 %; Eosinophils # (auto) 0.24 K/uL (0.00-0.50); Eosinophils % (auto) 1.9 %; Hematocrit (blood only) 35.6 % (42.0-52.0); Hemoglobin 10.3 g/dl (14.0-18.0); Immature Granulocytes # (auto) 0.09 K/uL (0.01-0.20); Immature Granulocytes % (auto) 0.7 %; Lymphocytes # (auto) 1.32 K/uL (1.20-3.40); Lymphocytes % (auto) 10.6 %; Mean Corpuscular Hemoglobin 22.4 pg (25.0-34.0); Mean Corpuscular Hgb Conc 28.9 g/dL (32.0-36.0); Mean Corpuscular Volume 77.4 fL (80.0-100.0); Mean Platelet Volume 10.2 fL (9.4-12.4); Monocytes # (auto) 1.02 K/uL (0.11-0.59); Monocytes % (auto) 8.2 %; Neutrophils # (auto) 9.64 K/uL (1.40-6.50); Neutrophils % (auto) 77.8 %; Platelet Count 248 K/uL (130-400); RDW Coefficient of Variation 18.8 % (11.5-14.5); RDW Standard Deviation 51.8 fL (36.4-46.3); White Blood Count 12.41 K/ul (4.8-10.8)
[2024-05-23 06:45] LABS: Albumin Globulin Ratio 1.3 (0.9-2); Albumin Level 4.2 gm/dl (3.4-5.0); BUN Creatinine Ratio 18.2 (10-20); Bilirubin,Total 0.9 mg/dl (0.2-1.0); Calcium 9.6 mg/dl (8.6-10.3); Creatinine Clr Calc Pharmacy 84.5 ml/min; Globulin 3.2 gm/dl (2.5-4.0); Magnesium 1.8 mg/dl (1.7-2.4); Potassium 4.2 mmol/L (3.5-5.1); Total Protein 7.4 gm/dl (6.0-8.3)
[2024-05-23 06:51] LABS: Troponin I High Sensitivity 13.8 pg/ml (0-20)
[2024-05-23 07:04] LABS: INR 1.1 (0.9-1.1); Prothrombin Time 11.9 Seconds (9.0-12.0)
--- NOTE | 2024-05-23 07:12 | XRay Report ---
EXAM: XR chest 1V portable CLINICAL HISTORY: Chest pain, nonspecific TECHNIQUE: An X-ray image of the chest is obtained in 1 AP projection. COMPARISON: 02/09/2024 FINDINGS: Pulmonary Parenchyma: Progression of bilateral airspace opacities, mainly seen in the lower zones of the lungs, more prominent on the left side. Obliteration of left costophrenic angle. Right costophrenic angle is unremarkable. Hairline thickening of the minor fissure. Heart and Mediastinum: Cardiomegaly with bilateral hilar congestion. No mediastinal widening or masses. No hilar or mediastinal lymphadenopathy. Bony Thorax: Bony thorax appears intact without fractures or deformities. Sternotomy sutures are noted. Soft Tissues: Soft tissues overlying the chest wall are unremarkable. IMPRESSION: 1. Interval progression of bilateral lower zones airspace opacities. 2. Mild left-sided pleural effusion. 3. Cardiomegaly with bilateral hilar congestion. 4. Comparing the previous x-ray dated 02/09/2024 there is interval progression in the findings. Electronically signed by Duy Ramirez 05-23-2024 07:11 AM
[2024-05-23 07:19] LABS: Adenovirus PCR Not Detected (NotDetected); Bordetella parapertussis PCR Not Detected (NotDetected); Bordetella pertussis PCR Not Detected (NotDetected); Chlamydia pneumoniae PCR Not Detected (NotDetected); Coronavirus 229E PCR Not Detected (NotDetected); Coronavirus CoV-2 (COVID19)PCR Not Detected (NotDetected); Coronavirus HKU1 PCR Not Detected (NotDetected); Coronavirus NL63 PCR Not Detected (NotDetected); Coronavirus OC43PCR Not Detected (NotDetected); Human Metapneumovirus PCR Not Detected (NotDetected); Influenza A PCR Not Detected (NotDetected); Influenza B PCR Not Detected (NotDetected); Mycoplasma pneumoniae PCR Not Detected (NotDetected); Parainfluenza Virus 1 PCR Not Detected (NotDetected); Parainfluenza Virus 2 PCR Not Detected (NotDetected); Parainfluenza Virus 3 PCR Not Detected (NotDetected); Parainfluenza Virus 4 PCR Not Detected (NotDetected); Respiratory Syncytial VirusPCR Not Detected (NotDetected); Rhinovirus/Enterovirus PCR Not Detected (NotDetected)
[2024-05-23] MEDS: FUROSEMIDE INJ 20 MG/2 ML VIAL IV ONE (07:26)
--- NOTE | 2024-05-23 08:33 | History & Physical Report ---
Date of Service May 23, 2024 Assessment & Plan (1) Acute respiratory failure with hypoxia: (2) Hypertensive emergency: (3) Hypervolemia: (4) Atrial fibrillation: (5) CAD (coronary artery disease): (6) Hypertension: (7) Hyperlipidemia: Plan This is a 74 y/o male with recent CABG x3 due to CAD and AVR for severe AoS (Feb 2024), atrial fibrillation, on chronic AC, HTN, dyslipidemia, and other history as outlined below who presents to the ED today with shortness of breath both at rest and with exertion. Work-up in the ED showed normal troponin, procalcitonin, negative BioFire, elevated BNP at 426. Chest x-ray personally reviewed - findings c/w fluid overload, left pleural effusion. Pt noted to have increased work of breathing in the ED so BiPAP was initiated for respiratory support. Pt referred for admission for further evaluation and management. #Hypoxic respirator failure #Fluid overload #CAD s/p CABG x 3 (03/01) #Severe AoS s/p AVR (03/01) Admit to PCU Continue BiPAP for respiratory support as needed, wean O2 as tolerated IV furosemide x 1 dose given in the ED, will continue IV diuresis ECHO Consult cardiology Repeat EKG in the AM, prn chest pain Daily weights, measure Is and Os Labs in the AM - monitor electrolytes and kidney function with diuresis. #Paroxysmal atrial fibrillation Continue anticoagulation Continue carvedilol - note recent change from metoprolol last week due to persistently elevated BPs noted at cardiac rehab #Hypertensive urgency - pt has not taken any of BP meds since yesterday, notes ongoing issues with elevated BP as outpatient Resume home medications Monitor closely - may need to titrate medications further #Hyperlipidemia Chronic, stable - continue statin therapy. Pt seen and reviewed with attending physician, Dr. King. Plan of care discussed and as outlined above. Code status: full code DVT: on chronic Sammy Logan PA-C History of Present Illness Chief Complaint: "I can't breathe" Primary Care Provider: Rashawn Obrien MD This is a 74 y/o male with recent CABG x3 due to CAD and AVR for severe AoS (Feb 2024), atrial fibrillation, on chronic AC, HTN, dyslipidemia, and other history as outlined below who presents to the ED today with shortness of breath both at rest and with exertion. He reports that he was doing well initially after surgery but two weeks ago, he started with shortness of breath described as "couldn't catch my breath" - both at rest and with activity. Over the same time, he reports a cough productive of yellow mucus. Notes ongoing trouble sleeping since surgery due to orthopnea, PND. Now has to sleep sitting up. Associated right-sided chest pain for same amount of time - not associated with the coughing or any specific trigger, not associated with exertion, describes as sharp, 4/10, no radiation. Has dizziness with position changes. Chills but no documented fever, +runny nose, +congestion x 2 weeks, no ST. Occasional BOYD, no N/V/D/C, blood in stools, urinary symptoms (dysuria, hematuria, urinary frequ ency). Started with abdominal pain 1-2 days ago. Appetite is good. Notes that he wears compression socks most days which seems to help with edema. Currently taking Eliquis as prescribed. 02/16/24: CABG x3 MITCHELL to LAD, SVG to OM, PDA. AVR 25mm magna ease, occlusion left atrial appendage 45mm Medtronic clip Allergies Allergy/AdvReac Type Severity Reaction Status Date / Time No Known Allergies Allergy Unknown Verified 10/15/21 06:55 Home Medications Medication Instructions Recorded Confirmed Type allopurinol 300 mg tablet 300 mg PO QAM 12/07/19 05/23/24 History atorvastatin 40 mg tablet 40 mg PO QAM 12/07/19 05/23/24 History multivit,Ca,min-iron 8 mg-folic 1 tab PO QAM 05/06/23 05/23/24 History acid 200 mcg-lycopene 600 mcg tablet (Centrum Men) prednisolone acetate 1 % eye 1 drp ophthalmic (eye) QAM 05/06/23 05/23/24 History drops,suspension sildenafil 100 mg tablet 100 mg PO DAILY PRN Erectile 05/06/23 05/23/24 History Dysfunction aspirin 81 mg tablet,delayed 81 mg PO QAM #30 tabs 02/11/24 05/23/24 Rx release Vitamin C 1 tab PO QAM 05/23/24 05/23/24 History apixaban 5 mg tablet (Eliquis) 5 mg PO BID 05/23/24 05/23/24 History calcium 1,200 mg PO QAM 05/23/24 05/23/24 History carvedilol 12.5 mg tablet 12.5 mg PO BID 05/23/24 05/23/24 History losartan 25 mg tablet 50 mg PO DAILY 05/23/24 05/23/24 History Past Med/Surg History Problem List (Updated 05/23/24 @ 15:32 by Michelle Contreras PA-C) Hypertensive urgency Acute on chronic diastolic heart failure with preserved ejection fraction Atrial fibrillation (Acute) Hypervolemia (Acute) Hypertensive emergency (Acute) Acute respiratory failure with hypoxia (Acute) Obesity Medical History (Updated 05/23/24 @ 15:32 by Michelle Contreras PA-C) Epiretinal membrane (ERM) of left eye Left retinal detachment Retinal edema Vitamin D deficiency Moderate aortic valve stenosis Atrial flutter Gout CAD (coronary artery disease) follows Dr. Concepcion Hyperlipidemia Hypertension Surgical History (Updated 05/23/24 @ 10:32 by Sakshi Logan PA-C) History of tympanoplasty of left ear S/P AVR (aortic valve replacement) AVR 25mm magna ease, occlusion left atrial appendage 45mm Medtronic clip - Feb 2024 S/P CABG (coronary artery bypass graft) CABGX 3 MITCHELL to LAD, SVG to OM, PDA - Feb 2024 History of tooth extraction History of colonoscopy Hx of bilateral cataract extraction Family History (Updated 05/23/24 @ 10:32 by Sakshi Logan PA-C) Other Cancer Heart disease Social History Smoking Status: Former smoker Second Hand Exposure: No; Do You Dip or Chew Tobacco: No; Hx Alcohol Use: Yes Alcohol type: beer Hx Substance Use: No Preferred Language: Uzbek Communication Ability: Effective 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 Results & Data Results & Data Vital Signs (Past 12 Hours) Vital Signs Temp Pulse Pulse Resp BP BP Pulse Ox 05/23/24 08:02 77 22 96 05/23/24 07:09 71 19 98 05/23/24 07:03 169/84 H 05/23/24 06:27 05/23/24 06:09 77 22 98 05/23/24 05:50 78 05/23/24 05:42 81 18 96 05/23/24 05:42 81 18 172/94 H 96 05/23/24 05:42 87 L 05/23/24 05:33 37 C 78 19 199/88 H 91 O2 Del Method O2 Flow Rate FiO2 05/23/24 08:02 05/23/24 07:09 05/23/24 07:03 05/23/24 06:27 BiPAP 05/23/24 06:09 30 05/23/24 05:50 05/23/24 05:42 Nasal Cannula 3 05/23/24 05:42 Nasal Cannula 3 05/23/24 05:42 Room Air 05/23/24 05:33 Room Air Laboratory Results Lab Results 05/23/24 Range/Units 06:05 WBC 12.41 H (4.8-10.8) K/ul RBC 4.60 L (4.70-6.10) M/uL Hgb 10.3 L (14.0-18.0) g/dl Hct 35.6 L (42.0-52.0) % MCV 77.4 L (80.0-100.0) fL MCH 22.4 L (25.0-34.0) pg MCHC 28.9 L (32.0-36.0) g/dL RDW Std Deviation 51.8 H (36.4-46.3) fL RDW Coeff of Shahnaz 18.8 H (11.5-14.5) % Plt Count 248 (130-400) K/uL MPV 10.2 (9.4-12.4) fL Immature Gran % (Auto) 0.7 % Neut % (Auto) 77.8 % Lymph % (Auto) 10.6 % [place] % (Auto) 8.2 % Eos % (Auto) 1.9 % Baso % (Auto) 0.8 % Neut # (Auto) 9.64 H (1.40-6.50) K/uL Lymph # (Auto) 1.32 (1.20-3.40) K/uL [place] # (Auto) 1.02 H (0.11-0.59) K/uL Eos # (Auto) 0.24 (0.00-0.50) K/uL Baso # (Auto) 0.10 (0.00-0.20) K/uL Immature Gran # (Auto) 0.09 (0.01-0.20) K/uL PT 11.9 (9.0-12.0) Seconds INR 1.1 (0.9-1.1) Sodium 142 (136-145) mmol/L Potassium 4.2 (3.5-5.1) mmol/L Chloride 107 (98-107) mmol/L Carbon Dioxide 30 (21-32) mmol/L Anion Gap 5 (3-11) BUN 16 (6-23) mg/dl Creatinine 0.88 (0.6-1.4) mg/dl Est Cr Clr Drug Dosing 84.5 ml/min eGFR 90.80 BUN/Creatinine Ratio 18.2 (10-20) Glucose 106 H (70-99(Fasting)) mg/dl Calcium 9.6 (8.6-10.3) mg/dl Magnesium 1.8 (1.7-2.4) mg/dl Total Bilirubin 0.9 (0.2-1.0) mg/dl AST 16 (13-39) U/L ALT 12 (7-52) U/L Alkaline Phosphatase 88 (34-104) U/L Troponin I High Sens 13.8 (0-20) pg/ml B-Natriuretic Peptide 426 H (0-100) pg/ml Total Protein 7.4 (6.0-8.3) gm/dl Albumin 4.2 (3.4-5.0) gm/dl Globulin 3.2 (2.5-4.0) gm/dl Albumin/Globulin Ratio 1.3 (0.9-2) Lipase 8 L (11-82) U/L Ethyl Alcohol mg/dL < 10.0 (<10.0) mg/dl Adenovirus (PCR) Not Detected (NotDetected) B. pertussis DNA (PCR) Not Detected (NotDetected) B.parapertussis DNA PCR Not Detected (NotDetected) C. pneumoniae DNA (PCR) Not Detected (NotDetected) Coronavirus OC43 (PCR) Not Detected (NotDetected) Coronavirus HKU1 (PCR) Not Detected (NotDetected) Coronavirus 229E (PCR) Not Detected (NotDetected) SARS-CoV-2 (PCR) Not Detected (NotDetected) Coronavirus NL63 (PCR) Not Detected (NotDetected) Human Metapneumovir PCR Not Detected (NotDetected) Influenza Type A (PCR) Not Detected (NotDetected) Influenza Type B (PCR) Not Detected (NotDetected) M. pneumoniae (PCR) Not Detected (NotDetected) Parainfluenza 1 (PCR) Not Detected (NotDetected) Parainfluenza 2 (PCR) Not Detected (NotDetected) Parainfluenza 3 (PCR) Not Detected (NotDetected) Parainfluenza 4 (PCR) Not Detected (NotDetected) RSV (PCR) Not Detected (NotDetected) Entero/Rhino (PCR) Not Detected (NotDetected) Diagnostic Findings Chest X-Ray 05/23/24 05:42 EXAM: XR chest 1V portable CLINICAL HISTORY: Chest pain, nonspecific TECHNIQUE: An X-ray image of the chest is obtained in 1 AP projection. COMPARISON: 02/09/2024 FINDINGS: Pulmonary Parenchyma: Progression of bilateral airspace opacities, mainly seen in the lower zones of the lungs, more prominent on the left side. Obliteration of left costophrenic angle. Right costophrenic angle is unremarkable. Hairline thickening of the minor fissure. Heart and Mediastinum: Cardiomegaly with bilateral hilar congestion. No mediastinal widening or masses. No hilar or mediastinal lymphadenopathy. Bony Thorax: Bony thorax appears intact without fractures or deformities. Sternotomy sutures are noted. Soft Tissues: Soft tissues overlying the chest wall are unremarkable. IMPRESSION: 1. Interval progression of bilateral lower zones airspace opacities. 2. Mild left-sided pleural effusion. 3. Cardiomegaly with bilateral hilar congestion. 4. Comparing the previous x-ray dated 02/09/2024 there is interval progression in the findings. Electronically signed by Duy Ramirez 05-23-2024 07:11 AM Medications Administered Discontinued Medications Furosemide (Furosemide Inj 20 Mg/2 Ml Vial) 20 mg IV ONE ONE Stop: 05/23/24 07:17 Last Admin: 05/23/24 07:26 Dose: 20 mg Documented By: TNK Supervising Physician Co-Signing Physician Notes Patient seen and examined Reports worsening shortness of breath, cough, orthopnea in the past 2 weeks Rep Was noted to have increased work of breathing in ER and put on BIPAP. This improved On exam General: On nasal cannula, ill appearing, resp distress Eyes: PERRL, conjunctivae normal, not pale, anicteric sclerae, EOM intact bilaterally ENMT: External ear and nose normal, oropharynx normal Respiratory: Resp distress with tachypnea, diminished breath sounds, +crackles Cardiovascular: Irregularly irregular Gastrointestinal (Abdomen): Abdomen is not distended, soft, non-tender to palpation, normal bowel sounds Musculoskeletal: +pedal edema Neurologic: Alert and oriented x 3, No focal weakness, sensation grossly intact Psychiatric: Alert and oriented x 3, euthymic affect, no depressed affect CXR personally reviewed showing congestion and pleural effusion Lab notable for elevated BNP, WBC 12.4, procal <0.02, negative respiratory panel Acute diastolic heart failure Considering recent CABG, get Card consult, TTE IV lasix I/O Monitor resp status. Agree with other plans as detailed by Shania Logan PA-C (3) Hypervolemia Hypervolemia type: unspecified Qualified Code(s): E87.70 - Fluid overload, unspecified (4) Atrial fibrillation Atrial fibrillation type: paroxysmal Qualified Code(s): I48.0 - Paroxysmal atrial fibrillation (5) CAD (coronary artery disease) Associated angina: unspecified whether angina present Coronary Disease- Associated Artery/Lesion type: [place] artery [place] vs. transplanted heart: knik heart Qualified Code(s): I25.10 - Atherosclerotic heart disease of [place] coronary artery without angina pectoris (6) Hypertension Hypertension type: unspecified Qualified Code(s): I10 - Essential (primary) hypertension (7) Hyperlipidemia Hyperlipidemia type: unspecified Qualified Code(s): E78.5 - Hyperlipidemia, unspecified
[2024-05-23 09:24] LABS: Appearance Urine Clear (Clear); Bacteria Urine Automated None Seen (None Seen); Bilirubin Urine Negative (Negative); Blood Urine Negative (Negative); Cast Urine Automated 0-2 /lpf (0-2); Color Urine Yellow; Epithelial Cell Urine Auto 0-2 /hpf (0-2); Glucose Urine UA Negative (Negative); Ketones Urine Negative (Negative); Leukocyte Esterase Urine 2+ (Negative); Nitrite Urine Negative (Negative); Protein Urine Negative (Negative); RBC Urine Automated 0-2 /hpf (0-2); Specific Gravity Urine 1.006 (1.000-1.030); Urobilinogen Urine Negative (Negative); WBC Urine Automated 0-5 /hpf (0-5); pH Urine 6.5 (4.5-7.5)
[2024-05-23] MEDS: APIXABAN 5 MG TABLET PO STA (10:02)
[2024-05-23] MEDS: carvediloL 12.5 MG TAB PO STA (10:02)
[2024-05-23] MEDS: LOSARTAN POTASSIUM 50 MG TAB PO STA (10:02)
[2024-05-23] MEDS: prednisoLONE acetate 1% OP SUSP 5 ML BTL OPR STA (10:02)
[2024-05-23] MEDS ORDERED: ACETAMINOPHEN 325 MG TAB PO PRN (10:57)
--- NOTE | 2024-05-23 14:13 | Cardiology Consultation ---
Date of Consultation May 23, 2024 Assessment & Plan (1) Acute respiratory failure with hypoxia: (2) Acute on chronic diastolic heart failure with preserved ejection fraction: (3) Hypertensive urgency: (4) Atrial fibrillation: Plan Patient is several months post op CABG and AVR, presenting with complaints of worsening SOB, orthopnea, abdominal bloating and edema consistent with acute on chronic heart failure with preserved LVEF. Recommend IV diuretics. Received 20 mg IV x1 dose in the ER and patient reports frequent urination this morning afterwards. Repeat Furosemide 40 mg IV x1 this afternoon. Start spironolactone 12.5 mg daily, first dose this afternoon. Monitor I+O's Daily weight with standing scale. Echo with preserved LVEF, normal gradients post TAVR Persistent afib, controlled rates. continue anticoagulation with Eliquis Continue carvedilol for rate control. Hypertensive urgency -continue losartan 50 mg daily and carvedilol 12.5 mg BID for now. -BP should improve with diuresis. Continue furosemide 40 mg IV today. -Spironolactone 12.5 mg daily added. Case discussed with Dr. Morataya I spent a total of 60 minutes on the date of service in preparation, delivery, and documentation of the care provided to this patient, excluding any time spent in the performance of separately billed services. Michelle Contreras PA-C Department of Cardiology, [facility] This chart was completed in part utilizing Speech Voice Recognition Software. Grammatical errors, random word insertions, pronoun errors, and incomplete sentences are an occasional consequence of this system due to software limitations, ambient noise, and hardware issues. Any formal questions or concerns about the content, text, or information contained within the body of this dictation should be directly addressed to the provider for clarification. Supervising Physician Co-Signing Physician Notes I have personally performed a history and physical examination on the patient. I have reviewed the advance practitioner's documentation, and I agree with, and take responsibility for the plan of care. 74 year old patient presents to the emergency department with acute hypoxic respiratory failure due to acute heart failure with preserved ejection fraction. Echocardiogram demonstrating hyperdynamic LV function and normal bioprosthetic aortic valve function. Blood pressure uncontrolled on admission. Progressive symptoms noted after discontinuation of oral diuretic therapy more than 6 weeks ago. Recommendations: * Lasix 40 mg IV x 1 now then twice daily starting 05/24/24. * Spironolactone 12.5 mg daily. * Add topical nitrates for afterload reduction. * Consider titration of beta-kelsi. * Monitor fluid balance, daily, GFR, and electrolytes. * Maintain serum potassium greater than 4.0, and serum magnesium greater than 2.0. I spent a total of 35 minutes on the date of service in preparation, delivery, and documentation of the care provided to this patient, excluding any time spent in the performance of separately billed services. Semaj Morataya DO, [facility] History of Present Illness Reason for Consultation: CHF Requesting Physician: Mao Hospitalist Attending Physician: Dr. Morataya History of Present Illness Patient is a 74 year old male admitted to [facility] with worsening SOB x1 week with associated dyspnea with exertion, chest tightness, orthopnea, abdominal bloating. Recent history includes: CAD s/p CABG MITCHELL to LAD, SVG to OM, PDA 02/16/24 Severe s/p AVR 25mm magna ease 02/16/24 S/p RICHIE Clip 02/16/24 Persistent atrial fibrillation - controlled rates Atrial flutter on metoprolol and Coumadin [id number] 2 (age, HTN), s/p CTI ablation 05/06/23 HTN HLD HCM Patient has known PAF. Prior to surgery, he was in NSR. Post op it appears he was in NSR. However upon EP f/u in Mar 2024, he was in rate controlled atrial fibrillation and ongoing rate control strategy recommended at that time. He stopped diuretics in Mar 2024, in the post op setting, directed by CT surgery. He has not been weighing himself at home. over the last week patient reported worsening SOB with activities and chest tightness. He noted increased abdominal bloating and orthopnea at night along with cough and yellow sputum. No fevers or chills. He reports compliance with all medications. He has been participating in cardiac rehab. Telephone encounter recently placed to Cardiology due to elevated BP readings at rehab. Metoprolol was discontinued and carvedilol iniitated. Losartan dose was also recently increased. At time of consult, patient with ongoing dyspnea whit minimal exertion/ambulating to restroom. Conversational dyspnea noted. He reports frequent urination since he reveived dose of furosemide 20 mg IV in the ER. He also has expiratory wheezing. Chest tightness has improved. Allergies Allergy/AdvReac Type Severity Reaction Status Date / Time No Known Allergies Allergy Unknown Verified 10/15/21 06:55 Home Medications Medication Instructions Recorded Confirmed Type allopurinol 300 mg tablet 300 mg PO QAM 12/07/19 05/23/24 History atorvastatin 40 mg tablet 40 mg PO QAM 12/07/19 05/23/24 History multivit,Ca,min-iron 8 mg-folic 1 tab PO QAM 05/06/23 05/23/24 History acid 200 mcg-lycopene 600 mcg tablet (Centrum Men) prednisolone acetate 1 % eye 1 drp ophthalmic (eye) QAM 05/06/23 05/23/24 History drops,suspension sildenafil 100 mg tablet 100 mg PO DAILY PRN Erectile 05/06/23 05/23/24 History Dysfunction aspirin 81 mg tablet,delayed 81 mg PO QAM #30 tabs 02/11/24 05/23/24 Rx release Vitamin C 1 tab PO QAM 05/23/24 05/23/24 History apixaban 5 mg tablet (Eliquis) 5 mg PO BID 05/23/24 05/23/24 History calcium 1,200 mg PO QAM 05/23/24 05/23/24 History carvedilol 12.5 mg tablet 12.5 mg PO BID 05/23/24 05/23/24 History losartan 25 mg tablet 50 mg PO DAILY 05/23/24 05/23/24 History Patient History Medical History (Updated 05/23/24 @ 15:32 by Michelle Contreras PA-C) Epiretinal membrane (ERM) of left eye Left retinal detachment Retinal edema Vitamin D deficiency Moderate aortic valve stenosis Atrial flutter Gout CAD (coronary artery disease) follows Dr. Concepcion Hyperlipidemia Hypertension Surgical History (Updated 05/23/24 @ 10:32 by Sakshi Logan PA-C) History of tympanoplasty of left ear S/P AVR (aortic valve replacement) AVR 25mm magna ease, occlusion left atrial appendage 45mm Medtronic clip - Feb 2024 S/P CABG (coronary artery bypass graft) CABGX 3 MITCHELL to LAD, SVG to OM, PDA - Feb 2024 History of tooth extraction History of colonoscopy Hx of bilateral cataract extraction Family History (Updated 05/23/24 @ 10:32 by Sakshi Desmond, PA-C) Other Cancer Heart disease Social History Smoking Status: Former smoker Second Hand Exposure: No; Do You Dip or Chew Tobacco: No; Hx Alcohol Use: Yes Alcohol type: beer Hx Substance Use: No Preferred Language: Guyanese Communication Ability: Effective Solutions Manager Required: No Beliefs That Will Affect Care: None Current Living Situation: Spouse Current Living Situation Comment: Mobile Home with Family current occupation: Retired Other Information That Helps Us Care for You: No Feels Safe at Home: Yes Safety Concerns: Feels Safe At This Time Assistive Devices: Denture - Upper, Denture - Lower and Glasses Review of Systems Review of Systems: All systems reviewed & are unremarkable except as noted in HPI & below Physical Exam Constitutional: WD/WN, vitals as above + obese; no acute distress Neck: trachea midline, no thyromegaly + thick neck Respiratory: + labored breathing (conversational dysp laurel) and + tachypneic Auscultation: + diminished lung sounds, + crackles and + wheezes Cardiovascular: Rate/Rhythm: + irregularly irregular Heart Sounds: normal S1, normal S2 and + murmur (II/ systolic murmur) Vessels: no JVD Extremities: + edema (1-2+ pretibial edema b/l) Gastrointestinal (Abdomen): normal bowel sounds, soft, nontender, no hepatosplenomegaly Neurologic: PERRL, EOMI, accommodation nl, no face palsy, no dysarthria Psychiatric: A+Ox3, euthymic affect Results & Data Vital Signs (Past 12 Hours) Vital Signs Temp Pulse Pulse Resp BP BP Pulse Ox 05/23/24 13:06 61 20 128/89 98 05/23/24 11:20 05/23/24 11:20 72 26 H 177/95 H 96 05/23/24 11:20 05/23/24 11:19 05/23/24 11:19 72 26 H 177/95 H 96 05/23/24 10:33 70 19 96 05/23/24 10:30 165/89 H 05/23/24 10:24 71 25 H 97 05/23/24 10:03 80 24 96 05/23/24 10:01 185/93 H 05/23/24 10:01 185/93 H 05/23/24 10:00 89 41 H 92 05/23/24 09:48 71 26 H 97 05/23/24 09:23 75 05/23/24 09:09 75 30 H 95 05/23/24 09:08 145/92 H 05/23/24 09:03 80 22 93 05/23/24 09:02 143/116 H 05/23/24 09:02 143/116 H 05/23/24 09:02 143/116 H 05/23/24 08:48 76 21 93 05/23/24 08:36 72 26 H 94 05/23/24 08:30 137/100 05/23/24 08:27 78 28 H 94 05/23/24 08:03 76 26 H 96 05/23/24 08:02 77 22 96 05/23/24 08:01 161/85 H 05/23/24 07:57 75 19 99 05/23/24 07:33 80 20 98 05/23/24 07:30 154/111 H 05/23/24 07:24 78 19 97 05/23/24 07:09 71 19 98 05/23/24 07:03 169/84 H 05/23/24 06:27 05/23/24 06:09 77 22 98 05/23/24 05:50 78 05/23/24 05:42 81 18 96 05/23/24 05:42 81 18 172/94 H 96 05/23/24 05:42 87 L 05/23/24 05:33 37 C 78 19 199/88 H 91 Pulse Ox O2 Del Method O2 Del Method O2 Flow Rate O2 Flow Rate FiO2 05/23/24 13:06 Room Air 05/23/24 11:20 Nasal Cannula 2 05/23/24 11:20 Nasal Cannula 2 05/23/24 11:20 Nasal Cannula 2 05/23/24 11:19 95 Nasal Cannula 2 05/23/24 11:19 Nasal Cannula 2 05/23/24 10:33 05/23/24 10:30 05/23/24 10:24 Nasal Cannula 2 05/23/24 10:03 Nasal Cannula 2 05/23/24 10:01 05/23/24 10:01 05/23/24 10:00 05/23/24 09:48 05/23/24 09:23 05/23/24 09:09 05/23/24 09:08 05/23/24 09:03 05/23/24 09:02 05/23/24 09:02 05/23/24 09:02 05/23/24 08:48 05/23/24 08:36 05/23/24 08:30 05/23/24 08:27 BiPAP 05/23/24 08:03 BiPAP 05/23/24 08:02 05/23/24 08:01 05/23/24 07:57 BiPAP 05/23/24 07:33 BiPAP 05/23/24 07:30 05/23/24 07:24 BiPAP 05/23/24 07:09 05/23/24 07:03 05/23/24 06:27 BiPAP 05/23/24 06:09 30 05/23/24 05:50 05/23/24 05:42 Nasal Cannula 3 05/23/24 05:42 Nasal Cannula 3 05/23/24 05:42 Room Air 05/23/24 05:33 Room Air Diagnostic Findings telemetry reviewed: Persistent afib, rates controlled EKG reviewed: Afib with diffuse ST/T wave abnormality - similar to past EKGs Echo report reviewed dated 05/23 LV is hyperdynamic. LVEF > 70% Severe concentric LVH Septal motion is consistent with post op state LA is moderately dilated Bioprosthetic valve in place. Normal gradients. Chest X-Ray 05/23/24 05:42 EXAM: XR chest 1V portable CLINICAL HISTORY: Chest pain, nonspecific TECHNIQUE: An X-ray image of the chest is obtained in 1 AP projection. COMPARISON: 02/09/2024 FINDINGS: Pulmonary Parenchyma: Progression of bilateral airspace opacities, mainly seen in the lower zones of the lungs, more prominent on the left side. Obliteration of left costophrenic angle. Right costophrenic angle is unremarkable. Hairline thickening of the minor fissure. Heart and Mediastinum: Cardiomegaly with bilateral hilar congestion. No mediastinal widening or masses. No hilar or mediastinal lymphadenopathy. Bony Thorax: Bony thorax appears intact without fractures or deformities. Sternotomy sutures are noted. Soft Tissues: Soft tissues overlying the chest wall are unremarkable. IMPRESSION: 1. Interval progression of bilateral lower zones airspace opacities. 2. Mild left-sided pleural effusion. 3. Cardiomegaly with bilateral hilar congestion. 4. Comparing the previous x-ray dated 02/09/2024 there is interval progression in the findings. Electronically signed by Dyu Ramirez 05-23-2024 07:11 AM Medications Administered Current Inpatient Medications Acetaminophen (Acetaminophen 325 Mg Tab) 650 mg PO Q4H PRN PRN Reason: Pain or Fever Stop: 06/22/24 10:56 Allopurinol (Allopurinol 300 Mg Tab) 300 mg PO QAM LEVI Stop: 06/23/24 08:59 Apixaban (Apixaban 5 Mg Tablet) 5 mg PO BID LEVI Stop: 06/22/24 20:59 Aspirin (Aspirin 81 Mg Ectab) 81 mg PO QAM LEVI Stop: 06/23/24 08:59 Atorvastatin Calcium (Atorvastatin 40 Mg Tab) 40 mg PO QAM LEVI Stop: 06/23/24 08:59 Carvedilol (Carvedilol 12.5 Mg Tab) 12.5 mg PO BIDM LEVI Stop: 06/22/24 16:59 Losartan Potassium (Losartan Potassium 50 Mg Tab) 50 mg PO DAILY LEVI Stop: 06/23/24 08:59 Prednisolone Acetate (Prednisolone Acetate 1% Op Susp 5 Ml Btl) 1 drops OP QAM LEVI Stop: 06/23/24 08:59 Spironolactone (Spironolactone 12.5 Mg Tab) 12.5 mg PO DAILY LEVI Stop: 06/22/24 14:59 Last Admin: 05/23/24 15:19 Dose: 12.5 mg (4) Atrial fibrillation Atrial fibrillation type: paroxysmal Qualified Code(s): I48.0 - Paroxysmal atrial fibrillation
--- NOTE | 2024-05-23 14:43 | Electrocardiogram Report ---
Test Reason : Blood Pressure : */* mmHG Vent. Rate : 71 BPM Atrial Rate : * BPM P-R Int : * ms QRS Dur : 78 ms QT Int : 406 ms P-R-T Axes : * 58 241 degrees QTcB Int : 441 ms Atrial fibrillation Abnormal ECG When compared with ECG of 09-Feb-2024 11:51, ST elevation has replaced ST depression in Anterior leads Confirmed by Eloy Reyes ([id number]) on 05/23/2024 2:42:40 PM Referred By: Confirmed By: Eloy Reyes
[2024-05-23] MEDS: SPIRONOLACTONE 12.5 MG TAB PO SCH (15:19)
[2024-05-23] MEDS: FUROSEMIDE 40 MG/4 ML VIAL IV ONE (15:19)
[2024-05-23] MEDS: NITROGLYCERIN 2% OINTMENT 30GM TUBE EXT SCH (16:27)
[2024-05-23] MEDS: carvediloL 12.5 MG TAB PO SCH (17:35)
[2024-05-23] MEDS: APIXABAN 5 MG TABLET PO SCH (21:33)
[2024-05-24 07:41] LABS: Hematocrit (blood only) 34.8 % (42.0-52.0); Hemoglobin 10.3 g/dl (14.0-18.0); Red Blood Count 4.57 M/uL (4.70-6.10); White Blood Count 11.42 K/ul (4.8-10.8)
[2024-05-24 07:42] LABS: Basophils # (auto) 0.08 K/uL (0.00-0.20); Basophils % (auto) 0.7 %; Eosinophils # (auto) 0.21 K/uL (0.00-0.50); Eosinophils % (auto) 1.8 %; Immature Granulocytes # (auto) 0.06 K/uL (0.01-0.20); Immature Granulocytes % (auto) 0.5 %; Lymphocytes # (auto) 1.79 K/uL (1.20-3.40); Lymphocytes % (auto) 15.7 %; Mean Corpuscular Hemoglobin 22.5 pg (25.0-34.0); Mean Corpuscular Hgb Conc 29.6 g/dL (32.0-36.0); Mean Corpuscular Volume 76.1 fL (80.0-100.0); Mean Platelet Volume 10.5 fL (9.4-12.4); Monocytes # (auto) 1.34 K/uL (0.11-0.59); Monocytes % (auto) 11.7 %; Neutrophils # (auto) 7.94 K/uL (1.40-6.50); Neutrophils % (auto) 69.6 %; Platelet Count 269 K/uL (130-400); RDW Coefficient of Variation 19.3 % (11.5-14.5)
[2024-05-24 07:49] LABS: BUN Creatinine Ratio 24.4 (10-20); Calcium 9.7 mg/dl (8.6-10.3); Creatinine Clr Calc Pharmacy 80.4 ml/min; Magnesium 1.9 mg/dl (1.7-2.4); Potassium 3.7 mmol/L (3.5-5.1)
[2024-05-24] MEDS: ASPIRIN 81 MG ECTAB PO SCH (09:06)
[2024-05-24] MEDS: prednisoLONE acetate 1% OP SUSP 5 ML BTL OP SCH (09:06)
[2024-05-24] MEDS: ATORVASTATIN 40 MG TAB PO SCH (09:06)
[2024-05-24] MEDS: LOSARTAN POTASSIUM 50 MG TAB PO SCH (09:06)
[2024-05-24] MEDS: allopurinoL 300 MG TAB PO SCH (09:06)
[2024-05-24] MEDS: FUROSEMIDE 40 MG/4 ML VIAL IV SCH ×2 (09:10→09:40)
--- NOTE | 2024-05-24 09:46 | Hospitalist Progress Note ---
Date of Service May 24, 2024 Assessment & Plan (1) Acute respiratory failure with hypoxia: (2) Hypertensive emergency: (3) Hypervolemia: (4) Atrial fibrillation: (5) CAD (coronary artery disease): (6) Hypertension: (7) Hyperlipidemia: Plan 74 year old male with recent CABG x3 due to CAD and AVR for severe AoS (Feb 2024), atrial fibrillation, on chronic AC, HTN, dyslipidemia, and other history who presented to the ED with shortness of breath both at rest and with exertion. 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 Chest x-ray personally reviewed - findings c/w fluid overload, left pleural effusion. Pt noted to have increased work of breathing in the ED so BiPAP was initiated for respiratory support Continue IV lasix Cardiology eval noted Continue spironolactone added by Cardiology Monitor electrolytes, I/O and daily weight Now off oxygen. Currently on room air TTE noted EF >70%, severe conc LVH, mod dil LA, bioprosthetic AV with normal gradient #Paroxysmal atrial fibrillation Continue [employer]IEF [employer]TER[employer]ISE ARCHITECT eliquis Rate controlled Continue carvedilol #Hypertensive urgency - BP was elevated on admission Now controlled Continue current medications #Hyperlipidemia Chronic, stable - continue statin therapy. Code status: full code DVT: on chronic Eliquis I spent a total of 50 minutes coordinating, documenting and providing care for this patient excluding time spent in performance of separately billed services Admission and Anticipated Discharge Date Admission Date: May 23, 2024 Subjective Patient seen and examined Reports cough and SOB are improving Denied any chest pain, palpitation, dizziness Denied any other complaints on ROS Physical Exam Constitutional: + well hydrated; no acute distress Eyes: PERRL, conjunctivae normal, anicteric sclerae ENMT: external ear and nose normal, oropharynx normal Respiratory: On room air, not in resp distress, diminished breath sounds Cardiovascular: Rate/Rhythm: + irregularly irregular S1 S2 Gastrointestinal (Abdomen): normal bowel sounds, soft, nontender, no hepatosplenomegaly Musculoskeletal: Improving pedal edema Neurologic: PERRL, EOMI, accommodation nl, no face palsy, no dysarthria Psychiatric: A+Ox3, euthymic affect Results & Data Results & Data Vital Signs (Past 12 Hours) Vital Signs Temp Pulse Pulse Resp BP Pulse Ox O2 Del Method 05/24/24 08:01 36.7 C 86 18 110/70 91 Room Air 05/24/24 07:13 75 05/24/24 02:38 36.8 C 72 17 126/72 96 Room Air 05/23/24 23:13 36.7 C 84 18 129/70 90 Room Air 05/23/24 22:04 78 Laboratory Results Abnormal lab results 05/24/24 Range/Units 06:29 WBC 11.42 H (4.8-10.8) K/ul RBC 4.57 L (4.70-6.10) M/uL Hgb 10.3 L (14.0-18.0) g/dl Hct 34.8 L (42.0-52.0) % MCV 76.1 L (80.0-100.0) fL MCH 22.5 L (25.0-34.0) pg MCHC 29.6 L (32.0-36.0) g/dL RDW Std Deviation 52.0 H (36.4-46.3) fL RDW Coeff of Shahnaz 19.3 H (11.5-14.5) % Neut # (Auto) 7.94 H (1.40-6.50) K/uL [place] # (Auto) 1.34 H (0.11-0.59) K/uL Carbon Dioxide 33 H (21-32) mmol/L BUN/Creatinine Ratio 24.4 H (10-20) (3) Hypervolemia Hypervolemia type: unspecified Qualified Code(s): E87.70 - Fluid overload, unspecified (4) Atrial fibrillation Atrial fibrillation type: paroxysmal Qualified Code(s): I48.0 - Paroxysmal atrial fibrillation (5) CAD (coronary artery disease) Coronary Disease-Associated Artery/Lesion type: [place] artery [place] vs. transplanted heart: [place] heart Associated angina: unspecified whether angina present Qualified Code(s): I25.10 - Atherosclerotic heart disease of [place] coronary artery without angina pectoris (6) Hypertension Hypertension type: unspecified Qualified Code(s): I10 - Essential (primary) hypertension (7) Hyperlipidemia Hyperlipidemia type: unspecified Qualified Code(s): E78.5 - Hyperlipidemia, unspecified
--- NOTE | 2024-05-24 12:01 | Cardiology Progress Note ---
Date of Service May 24, 2024 Assessment & Plan (1) Acute respiratory failure with hypoxia: (2) Acute on chronic diastolic heart failure with preserved ejection fraction: (3) Hypertensive urgency: (4) Atrial fibrillation: Plan 05/23/24 Patient is several months post op CABG and AVR, presenting with complaints of worsening SOB, orthopnea, abdominal bloating and edema consistent with acute on chronic heart failure with preserved LVEF. Recommend IV diuretics. Received 20 mg IV x1 dose in the ER and patient reports frequent urination this morning afterwards. Repeat Furosemide 40 mg IV x1 this afternoon. Start spironolactone 12.5 mg daily, first dose this afternoon. Monitor I+O's Daily weight with standing scale. Echo with preserved LVEF, normal gradients post TAVR Persistent afib, controlled rates. continue anticoagulation with Eliquis Continue carvedilol for rate control. Hypertensive urgency -continue losartan 50 mg daily and carvedilol 12.5 mg BID for now. -BP should improve with diuresis. Continue furosemide 40 mg IV today. -Spironolactone 12.5 mg daily added. 05/24/24: Good urine output overnight with IV furosemide. Improving CHF symptoms. Furosemide 40 mg IV BID today. Continue spironolactone 12.5 mg daily (added yesterday) Monitor I+O's. Daily weight with standing scale. Monitor renal function and electrolytes. will need loop diuretic and spironolactone on discharge. BP improved with IV diuresis and topical nitrates Continue losartan and carvedilol as well. Echo with preserved LVEF. chronic/persistent afib. Rates controlled Continue anticoagulation with Eliquis. Case discussed with Dr. Morataya I spent a total of 30 minutes on the date of service in preparation, delivery, and documentation of the care provided to this patient, excluding any time spent in the performance of separately billed services. Michelle Contreras PA-C Department of Cardiology, [facility] This chart was completed in part utilizing Speech Voice Recognition Software. Grammatical errors, random word insertions, pronoun errors, and incomplete sen tences are an occasional consequence of this system due to software limitations, ambient noise, and hardware issues. Any formal questions or concerns about the content, text, or information contained within the body of this dictation should be directly addressed to the provider for clarification. Admission and Anticipated Discharge Date Admission Date: May 23, 2024 Supervising Physician Co-Signing Physician Notes I have personally performed a history and physical examination on the patient. I have reviewed the advance practitioner's documentation, and I agree with, and take responsibility for the plan of care. 74-year-old patient with acute hypoxic respiratory failure due to acute HFpEF. Echocardiogram demonstrating hyperdynamic LV function and normal bioprosthetic aortic valve function. Blood pressure control improved with diuresis and topical nitrates. Telemetry reveals atrial fibrillation in the 70s. Recommendations: * Lasix 40 mg IV twice daily starting. * Spironolactone 12.5 mg daily (added 05/23/2024). * Continue topical nitrates for afterload reduction. * Continue carvedilol, losartan, aspirin, atorvastatin, and Eliquis as ordered. * Monitor fluid balance, daily, GFR, and electrolytes. * Maintain serum potassium greater than 4.0, and serum magnesium greater than 2.0. * Possible transition to oral diuretic therapy in the next 24-48 hours. I spent a total of 30 minutes on the date of service in preparation, delivery, and documentation of the care provided to this patient, excluding any time spent in the performance of separately billed services. Semaj Morataya DO, [facility] Subjective Patient reports interval improvement in his dyspnea since yesterday. Frequent urination reported. Still with orthopnea last night, but better. No chest pain. no dizziness. BP also improving. Tolerating medications Review of Systems Review of Systems: All systems reviewed & are unremarkable except as noted in HPI & below Physical Exam Constitutional: WD/WN, vitals as above + obese; no acute distress Neck: trachea midline, no thyromegaly + thick neck Respiratory: no respiratory distress and no labored breathing Auscultation: + diminished lung sounds; no crackles and no wheezes Cardiovascular: Rate/Rhythm: + irregularly irregular Heart Sounds: normal S1, normal S2 and + murmur (II/ systolic murmur) Vessels: no JVD Extremities: + edema (trace pretibial) Gastrointestinal (Abdomen): normal bowel sounds, soft, nontender, no hepa tosplenomegaly Neurologic: PERRL, EOMI, accommodation nl, no face palsy, no dysarthria Psychiatric: A+Ox3, euthymic affect Results & Data Vital Signs (Past 12 Hours) Vital Signs Temp Pulse Pulse Resp BP Pulse Ox O2 Del Method 05/24/24 08:01 36.7 C 86 18 110/70 91 Room Air 05/24/24 07:13 75 05/24/24 02:38 36.8 C 72 17 126/72 96 Room Air Laboratory Results CBC 05/24/24 Range/Units 06:29 WBC 11.42 H (4.8-10.8) K/ul RBC 4.57 L (4.70-6.10) M/uL Hgb 10.3 L (14.0-18.0) g/dl Hct 34.8 L (42.0-52.0) % Plt Count 269 (130-400) K/uL Neut # (Auto) 7.94 H (1.40-6.50) K/uL Lymph # (Auto) 1.79 (1.20-3.40) K/uL [place] # (Auto) 1.34 H (0.11-0.59) K/uL Eos # (Auto) 0.21 (0.00-0.50) K/uL Baso # (Auto) 0.08 (0.00-0.20) K/uL Comprehensive Metabolic Panel 05/24/24 Range/Units 06:29 Sodium 140 (136-145) mmol/L Potassium 3.7 (3.5-5.1) mmol/L Chloride 100 (98-107) mmol/L Carbon Dioxide 33 H (21-32) mmol/L BUN 22 (6-23) mg/dl Creatinine 0.90 (0.6-1.4) mg/dl Glucose 96 (70-99(Fasting)) mg/dl Calcium 9.7 (8.6-10.3) mg/dl Intake and Output 05/23/24 05/24/24 05/24/24 22:59 06:59 14:59 Intake Total 200 / 200 Output Total 2425 / 2650 225 / 2650 Balance -2425 / -2450 - / 2450 Intake: Oral 200 / 200 Output: Urine 2425 / 2650 225 / 2650 Other: Weight 91.8 kg Weight Measurement Method Standing Scale Diagnostic Findings Telemetry reviewed: Afib with controlled rates Echo report reviewed dated 05/23 LV is hyperdynamic. LVEF > 70% Severe concentric LVH Septal motion is consistent with post op state LA is moderately dilated Bioprosthetic valve in place. Normal gradients. Medications Administered Current Inpatient Medications Acetaminophen (Acetaminophen 325 Mg Tab) 650 mg PO Q4H PRN PRN Reason: Pain or Fever Stop: 06/22/24 10:56 Allopurinol (Allopurinol 300 Mg Tab) 300 mg PO QAM [facility] Stop: 06/23/24 08:59 Last Admin: 05/24/24 09:06 Dose: 300 mg Apixaban (Apixaban 5 Mg Tablet) 5 mg PO BID [facility] Stop: 06/22/24 20:59 Last Admin: 05/24/24 09:06 Dose: 5 mg Aspirin (Aspirin 81 Mg Ectab) [facility] [place]: 06/23/24 08:59 Last Admin: 05/24/24 09:06 Dose: 81 mg Atorvastatin Calcium (Atorvastatin 40 Mg Tab) 40 mg PO QAM [facility] Stop: 06/23/24 08:59 Last Admin: 05/24/24 09:06 Dose: 40 mg Carvedilol (Carvedilol 12.5 Mg Tab) 12.5 mg PO BIDM [facility] Stop: 06/22/24 16:59 Last Admin: 05/24/24 09:05 Dose: 12.5 mg Furosemide (Furosemide 40 Mg/4 Ml Vial) 40 mg IV BID17 [facility] Stop: 06/23/24 09:14 Last Admin: 05/24/24 09:10 Dose: 40 mg Losartan Potassium (Losartan Potassium 50 Mg Tab) 50 mg PO DAILY [facility] Stop: 06/23/24 08:59 Last Admin: 05/24/24 09:06 Dose: 50 mg Nitroglycerin (Nitroglycerin 2% Ointment 30gm Tube) 1 inch EXT Q6H [facility] Stop: 06/22/24 16:14 Last Admin: 05/24/24 10:16 Dose: 1 inch Prednisolone Acetate (Prednisolone Acetate 1% Op Susp 5 Ml Btl) 1 drops OP QAM [facility] Stop: 06/23/24 08:59 Last Admin: 05/24/24 09:06 Dose: 1 drops Spironolactone (Spironolactone 12.5 Mg Tab) 12.5 mg PO DAILY [facility] Stop: 06/22/24 14:59 Last Admin: 05/24/24 09:05 Dose: 12.5 mg (4) Atrial fibrillation Atrial fibrillation type: paroxysmal Qualified Code(s): I48.0 - Paroxysmal atrial fibrillation
--- NOTE | 2024-05-24 14:56 | Electrocardiogram Report ---
Test Reason : Blood Pressure : */* mmHG Vent. Rate : 73 BPM Atrial Rate : * BPM P-R Int : * ms QRS Dur : 80 ms QT Int : 426 ms P-R-T Axes : * 36 186 degrees QTcB Int : 469 ms Atrial fibrillation with premature ventricular or aberrantly conducted complexes Left ventricular hypertrophy with repolarization abnormality Abnormal ECG When compared with ECG of 23-May-2024 05:44, T wave inversion less evident in Inferior leads Confirmed by Eloy Reyes ([id number]) on 05/24/2024 2:55:53 PM Referred By: REFERRED SELF Confirmed By: Eloy Reyes
[2024-05-25 05:36] LABS: Basophils % (auto) 0.8 %; Eosinophils # (auto) 0.42 K/uL (0.00-0.50); Eosinophils % (auto) 3.4 %; Hematocrit (blood only) 35.1 % (42.0-52.0); Hemoglobin 10.4 g/dl (14.0-18.0); Immature Granulocytes # (auto) 0.07 K/uL (0.01-0.20); Immature Granulocytes % (auto) 0.6 %; Mean Corpuscular Hemoglobin 22.4 pg (25.0-34.0); Mean Corpuscular Hgb Conc 29.6 g/dL (32.0-36.0); Mean Corpuscular Volume 75.6 fL (80.0-100.0); Mean Platelet Volume 9.8 fL (9.4-12.4); Monocytes # (auto) 1.34 K/uL (0.11-0.59); Monocytes % (auto) 10.8 %; Neutrophils # (auto) 8.33 K/uL (1.40-6.50); Neutrophils % (auto) 67.4 %; Platelet Count 260 K/uL (130-400); RDW Coefficient of Variation 18.8 % (11.5-14.5); RDW Standard Deviation 50.9 fL (36.4-46.3); Red Blood Count 4.64 M/uL (4.70-6.10); White Blood Count 12.36 K/ul (4.8-10.8)
[2024-05-25 05:53] LABS: BUN Creatinine Ratio 26.9 (10-20); Calcium 9.6 mg/dl (8.6-10.3); Creatinine Clr Calc Pharmacy 77.8 ml/min; Magnesium 2.1 mg/dl (1.7-2.4); Phosphorus 5.4 mg/dl (2.5-4.9); Potassium 4.1 mmol/L (3.5-5.1)
[2024-05-25 06:01] LABS: Troponin I High Sensitivity 18.1 pg/ml (0-20)
--- NOTE | 2024-05-25 14:19 | Cardiology Progress Note ---
Date of Service May 25, 2024 Assessment & Plan (1) Acute respiratory failure with hypoxia: (2) Acute on chronic diastolic heart failure with preserved ejection fraction: (3) Hypertensive urgency: (4) Atrial fibrillation: (5) Non-sustained ventricular tachycardia: Plan 05/23/24 Patient is several months post op CABG and AVR, presenting with complaints of worsening SOB, orthopnea, abdominal bloating and edema consistent with acute on chronic heart failure with preserved LVEF. Recommend IV diuretics. Received 20 mg IV x1 dose in the ER and patient reports frequent urination this morning afterwards. Repeat Furosemide 40 mg IV x1 this afternoon. Start spironolactone 12.5 mg daily, first dose this afternoon. Monitor I+O's Daily weight with standing scale. Echo with preserved LVEF, normal gradients post TAVR Persistent afib, controlled rates. continue anticoagulation with Eliquis Continue carvedilol for rate control. Hypertensive urgency -continue losartan 50 mg daily and carvedilol 12.5 mg BID for now. -BP should improve with diuresis. Continue furosemide 40 mg IV today. -Spironolactone 12.5 mg daily added. 05/24/24: Good urine output overnight with IV furosemide. Improving CHF symptoms. Furosemide 40 mg IV BID today. Continue spironolactone 12.5 mg daily (added yesterday) Monitor I+O's. Daily weight with standing scale. Monitor renal function and electrolytes. will need loop diuretic and spironolactone on discharge. BP improved with IV diuresis and topical nitrates Continue losartan and carvedilol as well. Echo with preserved LVEF. chronic/persistent afib. Rates controlled Continue anticoagulation with Eliquis. 05/25/24: Ongoing diuresis over the last 24 hours. Still requiring supplemental O2 with orthopnea. Repeat chest xray in AM Continue furosemide 40 mg IV BID Continue spironolactone 25 mg daily stop topical nitrates BP improved. Continue losartan. patient with non sustained VT this morning. Symptomatic. electrolytes acceptable. normal LVEF this admission. Consider changing carvedilol to metoprolol succinate. Monitor on telemetry. Case discussed with Dr. Morataya I spent a total of 30 minutes on the date of service in preparation, delivery, and documentation of the care provided to this patient, excluding any time spent in the performance of separately billed services. Michelle K Ben, PA-C Department of Cardiology, [facility] This chart was completed in part utilizing Speech Voice Recognition Software. Grammatical errors, random word insertions, pronoun errors, and incomplete sentences are an occasional consequence of this system due to software limitations, ambient noise, and hardware issues. Any formal questions or concerns about the content, text, or information contained within the body of this dictation should be directly addressed to the provider for clarification. Admission and Anticipated Discharge Date Admission Date: May 23, 2024 Supervising Physician Co-Signing Physician Notes I have personally performed a history and physical examination on the patient. I have reviewed the advance practitioner's documentation, and I agree with, and take responsibility for the plan of care. 74-year-old patient with acute hypoxic respiratory failure due to acute HFpEF. Echocardiogram demonstrating hyperdynamic LV function and normal bioprosthetic aortic valve function. Blood pressure control improved with diuresis and topical nitrates. Fluid balance -1050 mL.Telemetry reveals atrial fibrillation in the 70s. Nonsustained ventricular tachycardia recorded on telemetry this morning. Recommendations: * Lasix 40 mg IV twice daily * Spironolactone 12.5 mg daily (added 05/23/2024). * Discontinue topical nitrates * Continue carvedilol, losartan, aspirin, atorvastatin, and Eliquis as ordered. * Monitor fluid balance, daily, GFR, and electrolytes. * Maintain serum potassium greater than 4.0, and serum magnesium greater than 2.0. I spent a total of 35 minutes on the date of service in preparation, delivery, and documentation of the care provided to this patient, excluding any time spent in the performance of separately billed services. Semaj Morataya DO, [facility] Subjective Patient resting in bed comfortably. Reports his dyspnea with exertion continues to improve. Still has orthonea and cough. No fevers. No edema. Abdominal bloating improved. This morning he had 19 beat run of non sustained VT at 5:00 AM. Patient reports he was awake and he had dizziness and SOB with the episode. No syncope. Symptoms resolved quickly. Review of Systems Review of Systems: All systems reviewed & are unremarkable except as noted in HPI & below Physical Exam Constitutional: WD/WN, vitals as above + obese; no acute distress Neck: trachea midline, no thyromegaly + thick neck Respiratory: no respiratory distress and no labored breathing Auscultation: + diminished lung sounds; no crackles and no wheezes Cardiovascular: Rate/Rhythm: + irregularly irregular Heart Sounds: normal S1, normal S2 and + murmur (II/ systolic murmur) Vessels: no JVD Extremities: + edema (trace pretibial) Gastrointestinal (Abdomen): normal bowel sounds, soft, nontender, no hepatosplenomegaly Neurologic: PERRL, EOMI, accommodation nl, no face palsy, no dysarthria Psychiatric: A+Ox3, euthymic affect Results & Data Vital Signs (Past 12 Hours) Vital Signs Temp Pulse Pulse Resp BP Pulse Ox O2 Del Method 05/25/24 11:00 36.8 C 76 20 128/74 95 Nasal Cannula 05/25/24 08:00 80 05/25/24 07:30 Nasal Cannula 05/25/24 07:00 37.0 C 88 18 135/68 96 Nasal Cannula 05/25/24 02:54 36.6 C 75 16 131/74 94 Nasal Cannula O2 Flow Rate 05/25/24 11:00 2 05/25/24 08:00 05/25/24 07:30 2 05/25/24 07:00 2 05/25/24 02:54 2 Laboratory Results Cardiac Enzymes 05/25/24 05/25/24 Range/Units 05:25 09:55 Troponin I High Sens 18.1 D 15.0 (0-20) pg/ml CBC 05/25/24 Range/Units 05:25 WBC 12.36 H (4.8-10.8) K/ul RBC 4.64 L (4.70-6.10) M/uL Hgb 10.4 L (14.0-18.0) g/dl Hct 35.1 L (42.0-52.0) % Plt Count 260 (130-400) K/uL Neut # (Auto) 8.33 H (1.40-6.50) K/uL Lymph # (Auto) 2.10 (1.20-3.40) K/uL [place] # (Auto) 1.34 H (0.11-0.59) K/uL Eos # (Auto) 0.42 (0.00-0.50) K/uL Baso # (Auto) 0.10 (0.00-0.20) K/uL Comprehensive Metabolic Panel 05/25/24 Range/Units 05:25 Sodium 140 (136-145) mmol/L Potassium 4.1 (3.5-5.1) mmol/L Chloride 101 (98-107) mmol/L Carbon Dioxide 34 H (21-32) mmol/L BUN 25 H (6-23) mg/dl Creatinine 0.93 (0.6-1.4) mg/dl Glucose 99 (70-99(Fasting)) mg/dl Calcium 9.6 (8.6-10.3) mg/dl Intake and Output 05/24/24 05/25/24 05/25/24 22:59 06:59 14:59 Intake Total 250 / 730 Output Total 400 / 1300 900 / 1300 Balance -400 / -570 -650 / -570 Intake: Oral 250 / 730 Output: Urine 400 / 1300 900 / 1300 Other: Weight 91.6 kg Weight Measurement Method Standing Scale Diagnostic Findings Telemetry reviewed: Afib with controlled rates in the 70's; 19 beat run of VT at 5:00 AM Medications Administered Current Inpatient Medications Acetaminophen (Acetaminophen 325 Mg Tab) 650 mg PO Q4H PRN PRN Reason: Pain or Fever Stop: 06/22/24 10:56 Allopurinol ([facility]op[facility]ol 300 Mg Tab) [facility] [place] 06/23/24 08:59 Last Admin: 05/25/24 08:47 Dose: 300 mg Apixaban (Apixaban 5 Mg Tablet) 5 mg PO BID [facility] Stop: 06/22/24 20:59 Last Admin: 05/25/24 09:57 Dose: 5 mg Aspirin (Aspirin 81 Mg Ectab) [facility] [place] Stop[facility] 06/23/24 08:59 Last Admin: 05/25/24 08:47 Dose: 81 mg Atorvastatin Calcium (Atorvastatin 40 Mg Tab) 40 mg PO QAM [facility] Stop: 06/23/24 08:59 Last Admin: 05/25/24 08:47 Dose: 40 mg Carvedilol (Carvedilol 12.5 Mg Tab) 12.5 mg PO BIDM [facility] Stop: 06/22/24 16:59 Last Admin: 05/25/24 08:47 Dose: 12.5 mg Furosemide (Furosemide 40 Mg/4 Ml Vial) 40 mg IV BID17 [facility] Stop: 06/23/24 09:14 Last Admin: 03/19/25 08:48 Dose: 40 mg Losartan Potassium (Losartan Potassium 50 Mg Tab) 50 mg PO DAILY [facility] Stop: 06/23/24 08:59 Last Admin: 05/25/24 08:48 Dose: 50 mg Prednisolone Acetate (Prednisolone Acetate 1% Op Susp 5 Ml Btl) 1 drops OP QAM [facility] Stop: 06/23/24 08:59 Last Admin: 05/25/24 08:48 Dose: 1 drops Spironolactone (Spironolactone 12.5 Mg Tab) 12.5 mg PO DAILY [facility] Stop: 06/22/24 14:59 Last Admin: 05/25/24 08:48 Dose: 12.5 mg (4) Atrial fibrillation Atrial fibrillation type: paroxysmal Qualified Code(s): I48.0 - Paroxysmal atrial fibrillation
--- NOTE | 2024-05-25 16:28 | Hospitalist Progress Note ---
Date of Service May 25, 2024 Assessment & Plan (1) Acute respiratory failure with hypoxia: (2) Hypertensive emergency: (3) Hypervolemia: (4) Atrial fibrillation: (5) CAD (coronary artery disease): (6) Hypertension: (7) Hyperlipidemia: Plan per previous hospitalist notes with addendum: 74 year old male with recent CABG x3 due to CAD and AVR for severe AoS (Feb 2024), atrial fibrillation, on chronic AC, HTN, dyslipidemia, and other history who presented to the ED with shortness of breath both at rest and with exertion. 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 Chest x-ray personally reviewed - findings c/w fluid overload, left pleural effusion. Pt noted to have increased work of breathing in the ED so BiPAP was initiated for respiratory support Continue IV lasix Cardiology eval noted Continue spironolactone added by Cardiology Monitor electrolytes, I/O and daily weight Now off oxygen. Currently on room air TTE noted EF >70%, severe conc LVH, mod dil LA, bioprosthetic AV with normal gradient 05/25 -3 L fluid balance so far Continue IV Lasix plus spironolactone Topical nitrates stopped #Paroxysmal atrial fibrillation Continue [place] [place] eliquis Rate controlled Continue carvedilol #Hypertensive urgency - BP was elevated on admission Now controlled Continue current medications #Hyperlipidemia Chronic, stable - continue statin therapy. Code status: full code DVT: on chronic Eliquis Admission and Anticipated Discharge Date Admission Date: May 23, 2024 Subjective Follow-up for CHF exacerbation, etc. Patient had nonsustained VT this morning, symptomatic Seen resting in bed, sitting up, on 2 L of O2 States he feels that his breathing is improving gradually Still having some cough, productive No fevers or chills No chest pain, dizziness No other new symptoms Review of Systems Review of Systems: all noted and negative except for above Physical Exam Physical Exam: General- oriented x 3, not in distress, speaks in sentences with no effort or accessory muscle use Eyes- anicteric Neck- no JVD Lungs- Mild rales bilaterally, no wheezing Heart- normal rate, regular rhythm; no murmurs Abdomen- normal bowel sounds, nondistended, soft, nontender Extremities- Grade 1 bilateral lower extremity edema, no calf tenderness Neuro- alert, oriented x 3; no gross focal neurologic deficits Skin- warm & dry Results & Data Results & Data Vital Signs (Past 12 Hours) Vital Signs Temp Pulse Pulse Resp BP Pulse Ox O2 Del Method 05/25/24 15:53 67 05/25/24 15:00 36.7 C 88 18 120/65 96 Nasal Cannula 05/25/24 11:00 36.8 C 76 20 128/74 95 Nasal Cannula 05/25/24 08:00 80 05/25/24 07:30 Nasal Cannula 05/25/24 07:00 37.0 C 88 18 135/68 96 Nasal Cannula O2 Flow Rate 05/25/24 15:53 05/25/24 15:00 2 05/25/24 11:00 2 05/25/24 08:00 05/25/24 07:30 2 05/25/24 07:00 2 all noted and reviewed including below (3) Hypervolemia Hypervolemia type: unspecified Qualified Code(s): E87.70 - Fluid overload, unspecified (4) Atrial fibrillation Atrial fibrillation type: paroxysmal Qualified Code(s): I48.0 - Paroxysmal atrial fibrillation (5) CAD (coronary artery disease) Coronary Disease-Associated Artery/Lesion type: [place] artery [place] vs. transplanted heart: [place] heart Associated angina: unspecified whether angina present Qualified Code(s): I25.10 - Atherosclerotic heart disease of [place] coronary artery without angina pectoris (6) Hypertension Hypertension type: unspecified Qualified Code(s): I10 - Essential (primary) hypertension (7) Hyperlipidemia Hyperlipidemia type: unspecified Qualified Code(s): E78.5 - Hyperlipidemia, unspecified
[2024-05-26 06:50] LABS: Basophils % (auto) 0.9 %; Eosinophils # (auto) 0.39 K/uL (0.00-0.50); Eosinophils % (auto) 3.5 %; Hematocrit (blood only) 36.6 % (42.0-52.0); Hemoglobin 10.7 g/dl (14.0-18.0); Immature Granulocytes # (auto) 0.08 K/uL (0.01-0.20); Immature Granulocytes % (auto) 0.7 %; Lymphocytes # (auto) 2.17 K/uL (1.20-3.40); Lymphocytes % (auto) 19.5 %; Mean Corpuscular Hemoglobin 22.4 pg (25.0-34.0); Mean Corpuscular Hgb Conc 29.2 g/dL (32.0-36.0); Mean Corpuscular Volume 76.6 fL (80.0-100.0); Mean Platelet Volume 10.8 fL (9.4-12.4); Monocytes # (auto) 1.33 K/uL (0.11-0.59); Neutrophils # (auto) 7.05 K/uL (1.40-6.50); Neutrophils % (auto) 63.4 %; Platelet Count 295 K/uL (130-400); RDW Coefficient of Variation 18.6 % (11.5-14.5); RDW Standard Deviation 50.9 fL (36.4-46.3); Red Blood Count 4.78 M/uL (4.70-6.10); White Blood Count 11.12 K/ul (4.8-10.8)
[2024-05-26 07:14] LABS: BUN Creatinine Ratio 25.8 (10-20); Calcium 9.4 mg/dl (8.6-10.3); Potassium 4.1 mmol/L (3.5-5.1)
--- NOTE | 2024-05-26 07:27 | XRay Report ---
EXAM: XR chest 1V portable CLINICAL HISTORY: re-evaluate CHF; opacities TECHNIQUE: An X-ray image of the chest is obtained in 1 AP projection. COMPARISON: 05/23/2024 FINDINGS: Pulmonary Parenchyma: Interval regression of the right lower zone airspace opacities. No significant changes of the airspace opacities were seen in the left lower zone of the lung. Obliteration of left costophrenic angle. Right costophrenic angle is unremarkable. Hairline thickening of the minor fissure. Heart and Mediastinum: Cardiomegaly with bilateral hilar congestion. No mediastinal widening or masses. No hilar or mediastinal lymphadenopathy. Bony Thorax: Bony thorax appears intact without fractures or deformities. Sternotomy sutures are noted. Soft Tissues: Soft tissues overlying the chest wall are unremarkable. IMPRESSION: 1. Interval regression of the right lower zone airspace opacities. 2. No significant changes in the airspace opacities were seen in the left lower zone of the lung. 3. Mild left-sided pleural effusion.Stable 4. Cardiomegaly with bilateral hilar congestion. Stable. Electronically signed by Duy Ramirez 05-26-2024 07:26 AM
--- NOTE | 2024-05-26 08:29 | Hospitalist Progress Note ---
Date of Service May 26, 2024 Assessment & Plan (1) Acute respiratory failure with hypoxia: (2) Acute diastolic (congestive) heart failure: (3) CAD (coronary artery disease): (4) Severe aortic stenosis: (5) Atrial fibrillation: (6) Hypertension: (7) Hyperlipidemia: Plan 74 year old male with PMH significant for CAD s/p CABG x3 (03/01), severe s/p AVR (03/01), atrial fibrillation on Eliquis, HTN, and dyslipidemia who presented to the ED with SOB both at rest and with exertion and was found to be in acute diastolic HF. Acute respiratory failure Acute diastolic heart failure CAD s/p CABG x 3 (03/01) Severe s/p AVR (03/01) Work-up in the ED on 05/23 showed elevated BNP at 426 and CXR findings c/w fluid overload and left pleural effusion. Initially started on bipap due to increased WOB. Cardiology consulted. Echo with EF>70%, severe LVH, moderate LA dilation, normal gradient bioprosthetic AV. CXR today still demonstrating opacity. Order cefepime 2g q8hr and doxycycline 100mg bid given CXR findings, hypoxia, +productive cough since surgery in February, former smoker Currently on 2L NC, patient reports improved SOB and orthopnea Continue IV lasix 40mg bid and PO spironolactone 25mg daily Monitor electrolytes and replete to maintain K>4.0, Mag>2.0 Paroxysmal atrial fibrillation Telemetry showing A fib with PVCs, rates of 60-70 Continue carvedilol and Eliquis Hypertension Hypertensive urgency on admission controlled after diuresis Continue losartan Hyperlipidemia Chronic, stable. Continue aspirin and atorvastatin. DVT Prophylaxis: on Eliquis Code Status: FULL CODE PCP: Dr Rashawn Obrien MD Disposition: Not medically cleared for discharge. Still on O2 and IV diuretics. Starting IV antibiotics for possible pneumonia. Patient seen in collaboration with Dr. Bhardwaj. Please see addendum. I spent a total of 50 minutes coordinating, documenting and providing care for this patient excluding time spent in the performance of separately billed services or time spent by another provider/QHP. Admission and Anticipated Discharge Date Admission Date: May 23, 2024 Supervising Physician Co-Signing Physician Notes Attending Addendum: Case reviewed with the advanced practitioner. I have personally performed a history and physical examination on the patient. I have reviewed the advanced practitioner's documentation on the date of service referenced in note, and I agree with, and take responsibility for the plan of care. please refer to her notes for full details patient seen and examined, records reviewed by myself as well diagnoses and plan of care as per advanced practitioner's notes I spent a total of 35 minutes coordinating, documenting, and providing care for this patient, excluding time spent in the performance of separately billed services or time spent by another provider/QHP. Quentin Bhardwaj MD Subjective Patient seen sitting up in bed on O2 Nurse tried patient on RA this am but his SpO2 was 88-90% and patient felt more SOB States he is doing better this am, SOB is improving Was able to sleep laying down for the first time, denies orthopnea Still having productive cough Denies fevers, chills, chest pain, abdominal pain, N/V/D Ate breakfast and had a bowel movement this morning Review of Systems Review of Systems: All systems reviewed & are unremarkable except as noted in HPI & below Physical Exam Physical Exam: VITALS: Reviewed and VSS. On 2L NC. GEN: Healthy appearing, well-developed male, NAD. PSYCH: Good Judgment. AOx3. Normal memory, mood, and affect. HEENT: Head NC/AT. Sclera white and conjunctiva pink. Nares without rhinorrhea. Nasal and oral mucosa pink. NECK: Supple, with no masses. CV: Irregular rate and rhythm, systolic murmur appreciated, no r/g. LUNGS: Lung sounds diminished on left side, no w/r/c. ABD: Soft, NT/ND, NBS, no masses or organomegaly. SKIN: Warm, well perfused. No skin rashes or abnormal lesions. MSK: No deformities, Normal gait. EXT: No clubbing or cyanosis. Trace edema of bilateral LEs. NEURO: Ambulating with no limitations. Normal muscle strength and tone. No focal deficits. Results & Data Results & Data Vital Signs (Past 12 Hours) Vital Signs Temp Pulse Pulse Resp BP Pulse Ox O2 Del Method 05/26/24 07:30 70 05/26/24 07:00 36.6 C 70 18 114/56 L 90 Room Air 05/26/24 02:44 36.6 C 73 16 132/73 93 Nasal Cannula 05/25/24 23:00 36.7 C 69 17 103/55 L 97 Nasal Cannula 05/25/24 22:00 Nasal Cannula 05/25/24 21:59 75 O2 Flow Rate 05/26/24 07:30 05/26/24 07:00 05/26/24 02:44 2 05/25/24 23:00 2 05/25/24 22:00 2 05/25/24 21:59 Laboratory Results Short CBC 05/26/24 Range/Units 05:35 WBC 11.12 H (4.8-10.8) K/ul Hgb 10.7 L (14.0-18.0) g/dl Hct 36.6 L (42.0-52.0) % Plt Count 295 (130-400) K/uL BMP 05/26/24 05:35 Sodium 141 Potassium 4.1 Chloride 100 Carbon Dioxide 36 H BUN 23 Creatinine 0.89 Glucose 95 Calcium 9.4 I have independently reviewed and interpreted patient's labs including CBC, BMP, and mag. Diagnostic Findings Chest X-Ray 05/26/24 08:00 EXAM: XR chest 1V portable CLINICAL HISTORY: re-evaluate CHF; opacities TECHNIQUE: An X-ray image of the chest is obtained in 1 AP projection. COMPARISON: 05/23/2024 FINDINGS: Pulmonary Parenchyma: Interval regression of the right lower zone airspace opacities. No significant changes of the airspace opacities were seen in the left lower zone of the lung. Obliteration of left costophrenic angle. Right costophrenic angle is unremarkable. Hairline thickening of the minor fissure. Heart and Mediastinum: Cardiomegaly with bilateral hilar congestion. No mediastinal widening or masses. No hilar or mediastinal lymphadenopathy. Bony Thorax: Bony thorax appears intact without fractures or deformities. Sternotomy sutures are noted. Soft Tissues: Soft tissues overlying the chest wall are unremarkable. IMPRESSION: 1. Interval regression of the right lower zone airspace opacities. 2. No significant changes in the airspace opacities were seen in the left lower zone of the lung. 3. Mild left-sided pleural effusion.Stable 4. Cardiomegaly with bilateral hilar congestion. Stable. Electronically signed by Duy Ramirez 05-26-2024 07:26 AM Medications Administered Current Inpatient Medications Acetaminophen (Acetaminophen 325 Mg Tab) 650 mg PO Q4H PRN PRN Reason: Pain or Fever Stop: 06/22/24 10:56 Allopurinol (Allopurinol 300 Mg Tab) 300 mg PO QAM [facility] Stop: 06/23/24 08:59 Last Admin: 05/26/24 08:53 Dose: 300 mg Apixaban (Apixaban 5 Mg Tablet) 5 mg PO BID [facility] Stop: 06/22/24 20:59 Last Admin: 05/26/24 08:53 Dose: 5 mg Aspirin (Aspirin 81 Mg Ectab) 81 mg PO QAM [facility] Stop: 06/23/24 08:59 Last Admin: 05/26/24 08:53 Dose: 81 mg Atorvastatin Calcium (Atorvastatin 40 Mg Tab) 40 mg PO QAM [facility] Stop: 06/23/24 08:59 Last Admin: 05/26/24 08:53 Dose: 40 mg Carvedilol (Carvedilol 12.5 Mg Tab) 12.5 mg PO BIDM [facility] Stop: 06/22/24 16:59 Last Admin: 05/26/24 08:53 Dose: 12.5 mg Furosemide (Furosemide 40 Mg/4 Ml Vial) 40 mg IV BID17 [facility] Stop: 06/23/24 09:14 Last Admin: 05/26/24 08:53 Dose: 40 mg Losartan Potassium (Losartan Potassium 50 Mg Tab) 50 mg PO DAILY [facility] Stop: 06/23/24 08:59 Last Admin: 05/26/24 08:53 Dose: 50 mg Prednisolone Acetate (Prednisolone Acetate 1% Op Susp 5 Ml Btl) 1 drops OP QAM [facility] Stop: 06/23/24 08:59 Last Admin: 05/26/24 08:53 Dose: 1 drops Spironolactone (Spironolactone 12.5 Mg Tab) 12.5 mg PO DAILY [facility] Stop: 06/22/24 14:59 Last Admin: 05/26/24 08:54 Dose: 12.5 mg (3) CAD (coronary artery disease) Associated angina: unspecified whether angina present Coronary Disease-Associated Artery/Lesion type: [place] artery [place] vs. transplanted heart: [place] heart Qualified Code(s): I25.10 - Atherosclerotic heart disease of [place] coronary artery without angina pectoris (5) Atrial fibrillation Atrial fibrillation type: paroxysmal Qualified Code(s): I48.0 - Paroxysmal atrial fibrillation (6) Hypertension Hypertension type: unspecified Qualified Code(s): I10 - Essential (primary) hypertension (7) Hyperlipidemia Hyperlipidemia type: unspecified Qualified Code(s): E78.5 - Hyperlipidemia, unspecified
[2024-05-26 08:39] LABS: Magnesium 2.1 mg/dl (1.7-2.4)
[2024-05-26] MEDS: DOXYCYCLINE HYCLATE 100 MG CAP PO SCH (12:30)
[2024-05-26] MEDS: CEFEPIME 2000MG 2,000 MG/20 ML SYR IV SCH (12:32)
--- NOTE | 2024-05-26 14:12 | Cardiology Progress Note ---
Date of Service May 26, 2024 Assessment & Plan (1) Acute respiratory failure with hypoxia: (2) Acute on chronic diastolic heart failure with preserved ejection fraction: (3) Hypertensive urgency: (4) Atrial fibrillation: (5) Non-sustained ventricular tachycardia: Plan 05/23/24 Patient is several months post op CABG and AVR, presenting with complaints of worsening SOB, orthopnea, abdominal bloating and edema consistent with acute on chronic heart failure with preserved LVEF. Recommend IV diuretics. Received 20 mg IV x1 dose in the ER and patient reports frequent urination this morning afterwards. Repeat Furosemide 40 mg IV x1 this afternoon. Start spironolactone 12.5 mg daily, first dose this afternoon. Monitor I+O's Daily weight with standing scale. Echo with preserved LVEF, normal gradients post TAVR Persistent afib, controlled rates. continue anticoagulation with Eliquis Continue carvedilol for rate control. Hypertensive urgency -continue losartan 50 mg daily and carvedilol 12.5 mg BID for now. -BP should improve with diuresis. Continue furosemide 40 mg IV today. -Spironolactone 12.5 mg daily added. 05/24/24: Good urine output overnight with IV furosemide. Improving CHF symptoms. Furosemide 40 mg IV BID today. Continue spironolactone 12.5 mg daily (added yesterday) Monitor I+O's. Daily weight with standing scale. Monitor renal function and electrolytes. will need loop diuretic and spironolactone on discharge. BP improved with IV diuresis and topical nitrates Continue losartan and carvedilol as well. Echo with preserved LVEF. chronic/persistent afib. Rates controlled Continue anticoagulation with Eliquis. 05/25/24: Ongoing diuresis over the last 24 hours. Still requiring supplemental O2 with orthopnea. Repeat chest xray in AM Continue furosemide 40 mg IV BID Continue spironolactone 25 mg daily stop topical nitrates BP improved. Continue losartan. Patient with non sustained VT this morning. Symptomatic. electrolytes acceptable. normal LVEF this admission. Consider changing carvedilol to metoprolol succinate. Monitor on telemetry. 05/26/24: Fluid status improving with ongoing diuresis. Approaching euvolemic state. Chest xray improving. Orthopnea improving. Attempt to wean off supplemental O2 today. Continue IV diuretics for today Anticipate possible transitioning to oral loop diuretics tomorrow. Continue spironolactone. No recurrent VT overnight stable potassium and magnesium. Persistent afib, with controlled rates. continue carvedilol and Eliquis. Case discussed with Dr. Morataya I spent a total of 30 minutes on the date of service in preparation, delivery, and documentation of the care provided to this patient, excluding any time spent in the performance of separately billed services. Michelle Contreras PA-C Department of Cardiology, [facility] This chart was completed in part utilizing Speech Voice Recognition Software. Grammatical errors, random word insertions, pronoun errors, and incomplete sentences are an occasional consequence of this system due to software limitatio ns, ambient noise, and hardware issues. Any formal questions or concerns about the content, text, or information contained within the body of this dictation should be directly addressed to the provider for clarification. Admission and Anticipated Discharge Date Admission Date: May 23, 2024 Supervising Physician Co-Signing Physician Notes I have personally performed a history and physical examination on the patient. I have reviewed the advance practitioner's documentation, and I agree with, and take responsibility for the plan of care. 74-year-old patient with acute hypoxic respiratory failure due to acute HFpEF. Echocardiogram demonstrating hyperdynamic LV function and normal bioprosthetic aortic valve function. Telemetry reveals atrial fibrillation in the 70s. No recurrent NSVT. Recommendations: * Lasix 40 mg IV twice daily * Possible transition to oral diuretic therapy in a.m. 05/27/2024 * Spironolactone 12.5 mg daily (added 05/23/2024). * Continue carvedilol, losartan, aspirin, atorvastatin, and Eliquis as ordered. * Monitor fluid balance, daily, GFR, and electrolytes. * Maintain serum potassium greater than 4.0, and serum magnesium greater than 2.0. I spent a total of 30 minutes on the date of service in preparation, delivery, and documentation of the care provided to this patient, excluding any time spent in the performance of separately billed services. Semaj Morataya DO, [facility] Subjective Patient resting in chair, feeling better today. He was able to sleep more supine last night and on his side without significant orthpnea. Still requiring supplemental O2 with oxygen in the low 90's. SOB with exertion much improved too. No chest pain. Edema improved. Review of Systems Review of Systems: All systems reviewed & are unremarkable except as noted in Subjective Physical Exam Constitutional: WD/WN, vitals as above + obese; no acute distress Neck: trachea midline, no thyromegaly + thick neck Respiratory: no respiratory distress and no labored breathing Auscultation: + diminished lung sounds; no crackles and no wheezes Cardiovascular: Rate/Rhythm: + irregularly irregular Heart Sounds: normal S1, normal S2 and + murmur (II/ systolic murmur) Vessels: no JVD Extremities: no edema Gastrointestinal (Abdomen): normal bowel sounds, soft, nontender, no hepatosplenomegaly Neurologic: PERRL, EOMI, accommodation nl, no face palsy, no dysarthria Psychiatric: A+Ox3, euthymic affect Results & Data Vital Signs (Past 12 Hours) Vital Signs Temp Pulse Pulse Resp BP Pulse Ox O2 Del Method 05/26/24 11:00 36.7 C 60 18 107/56 L 95 Nasal Cannula 05/26/24 08:00 Nasal Cannula 05/26/24 07:30 70 05/26/24 07:00 36.6 C 70 18 114/56 L 90 Room Air 05/26/24 02:44 36.6 C 73 16 132/73 93 Nasal Cannula O2 Flow Rate 05/26/24 11:00 2 05/26/24 08:00 2 05/26/24 07:30 05/26/24 07:00 05/26/24 02:44 2 Laboratory Results CBC 05/26/24 Range/Units 05:35 WBC 11.12 H (4.8-10.8) K/ul RBC 4.78 (4.70-6.10) M/uL Hgb 10.7 L (14.0-18.0) g/dl Hct 36.6 L (42.0-52.0) % Plt Count 295 (130-400) K/uL Neut # (Auto) 7.05 H (1.40-6.50) K/uL Lymph # (Auto) 2.17 (1.20-3.40) K/uL Pender # (Auto) 1.33 H (0.11-0.59) K/uL Eos # (Auto) 0.39 (0.00-0.50) K/uL Baso # (Auto) 0.10 (0.00-0.20) K/uL Comprehensive Metabolic Panel 05/26/24 Range/Units 05:35 Sodium 141 (136-145) mmol/L Potassium 4.1 (3.5-5.1) mmol/L Chloride 100 (98-107) mmol/L Carbon Dioxide 36 H (21-32) mmol/L BUN 23 (6-23) mg/dl Creatinine 0.89 (0.6-1.4) mg/dl Glucose 95 (70-99(Fasting)) mg/dl Calcium 9.4 (8.6-10.3) mg/dl Intake and Output 05/25/24 05/26/24 05/26/24 22:59 06:59 14:59 Intake Total 790 / 790 0 / 790 Output Total 251 / 751 500 / 751 Balance 539 / 39 -500 / 39 Intake: Oral 790 / 790 0 / 790 Output: Urine 250 / 750 500 / 750 # Bowel Movements Other: Weight 91 kg Weight Measurement Method Standing Scale Diagnostic Findings Telemetry reviewed: Afib with controlled rates. No recurrent non sustained VT Chest xray reviewed today: IMPRESSION: 1. Interval regression of the right lower zone airspace opacities. 2. No significant changes in the airspace opacities were seen in the left lower zone of the lung. 3. Mild left-sided pleural effusion. Stable 4. Cardiomegaly with bilateral hilar congestion. Stable. Medications Administered Current Inpatient Medications Acetaminophen (Acetaminophen 325 Mg Tab) 650 mg PO Q4H PRN PRN Reason: Pain or Fever Stop: 06/22/24 10:56 Allopurinol ([facility] 300 Mg Tab) [facility] Stop: 06/23/24 08:59 Last Admin: 05/26/24 08:53 Dose: 300 mg Apixaban (Apixaban 5 Mg Tablet) 5 mg PO BID [facility] Stop: 06/22/24 20:59 Last Admin: 05/26/24 08:53 Dose: 5 mg Aspirin (Aspirin 81 Mg Ectab) 81 mg PO QAM [facility] Stop: 06/23/24 08:59 Last Admin: 05/26/24 08:53 Dose: 81 mg Atorvastatin Calcium (Atorvastatin 40 Mg Tab) 40 mg PO QAM [facility] Stop: 06/23/24 08:59 Last Admin: 05/26/24 08:53 Dose: 40 mg Carvedilol (Carvedilol 12.5 Mg Tab) 12.5 mg PO BIDM [facility] Stop: 06/22/24 16:59 Last Admin: 05/26/24 08:53 Dose: 12.5 mg Doxycycline Hyclate (Doxycycline Hyclate 100 Mg Cap) 100 mg PO BID [facility] Stop: 06/02/24 11:29 Last Admin: 05/26/24 12:30 Dose: 100 mg Furosemide (Furosemide 40 Mg/4 Ml Vial) 40 mg IV BID17 [facility] Stop: 06/23/24 09:14 Last Admin: 05/26/24 08:53 Dose: 40 mg Cefepime HCl (Maxipime 2000mg) 2,000 mg in 20 mls @ 5 mls/min IV Q8H [facility]; Protocol Stop: 06/02/24 11:59 Last Admin: 05/26/24 12:32 Dose: 5 mls/min Losartan Potassium (Losartan Potassium 50 Mg Tab) 50 mg PO DAILY [facility] Stop: 06/23/24 08:59 Last Admin: 05/26/24 08:53 Dose: 50 mg Prednisolone Acetate (Prednisolone Acetate 1% Op Susp 5 Ml Btl) 1 drops OP QAM [facility] Stop: 06/23/24 08:59 Last Admin: 05/26/24 08:53 Dose: 1 drops Spironolactone (Spironolactone 12.5 Mg Tab) 12.5 mg PO DAILY [facility] Stop: 06/22/24 14:59 Last Admin: 05/26/24 08:54 Dose: 12.5 mg (4) Atrial fibrillation Atrial fibrillation type: paroxysmal Qualified Code(s): I48.0 - Paroxysmal a trial fibrillation
[2024-05-27 07:15] LABS: Hematocrit (blood only) 35.2 % (42.0-52.0); Hemoglobin 10.3 g/dl (14.0-18.0); Mean Corpuscular Hemoglobin 22.3 pg (25.0-34.0); Mean Corpuscular Hgb Conc 29.3 g/dL (32.0-36.0); Mean Corpuscular Volume 76.4 fL (80.0-100.0); Platelet Count 292 K/uL (130-400); RDW Coefficient of Variation 18.5 % (11.5-14.5); RDW Standard Deviation 50.7 fL (36.4-46.3); Red Blood Count 4.61 M/uL (4.70-6.10); White Blood Count 10.04 K/ul (4.8-10.8)
[2024-05-27 07:38] LABS: BUN Creatinine Ratio 25.8 (10-20); Calcium 9.3 mg/dl (8.6-10.3); Creatinine Clr Calc Pharmacy 74.3 ml/min; Potassium 3.9 mmol/L (3.5-5.1)
--- NOTE | 2024-05-27 09:34 | Hospitalist Progress Note ---
Date of Service May 27, 2024 Assessment & Plan (1) Acute respiratory failure with hypoxia: (2) Acute diastolic (congestive) heart failure: (3) CAD (coronary artery disease): (4) Severe aortic stenosis: (5) Atrial fibrillation: (6) Hypertension: (7) Hyperlipidemia: Plan 74 year old male with PMH significant for CAD s/p CABG x3 (03/01), severe s/p AVR (03/01), atrial fibrillation on Eliquis, HTN, and dyslipidemia who presented to the ED with SOB both at rest and with exertion and was found to be in acute diastolic HF. Acute respiratory failure Acute diastolic heart failure CAD s/p CABG x 3 (03/01) Severe s/p AVR (03/01) Work-up in the ED on 05/23 showed elevated BNP at 426 and CXR findings c/w fluid overload and left pleural effusion. Initially started on bipap due to increased WOB. Cardiology consulted. Echo with EF>70%, severe LVH, moderate LA dilation, normal gradient bioprosthetic AV. CXR findings on 05/26 still demonstrating opacity. Sputum culture gram stain with many gram positive cocci and moderate gram negative cocci. Culture pending. Continue cefepime 2g q8hr and doxycycline 100mg bid given CXR findings, hypoxia, +productive cough since surgery in February, former smoker Currently on 2L NC, patient reports improved SOB and orthopnea. Trial RA if possible Patient received IV lasix 40mg this morning and PO spironolactone 25mg daily. BP after diuretics was 98/60 with recheck 106/62. Discontinued PM dose of IV lasix and holding spironolactone until assessment tomorrow morning. Monitor electrolytes and replete to maintain K>4.0, Mag>2.0. K 3.9 and Mag 2.0 this am. KCl 20meq PO x1 today. Paroxysmal atrial fibrillation Telemetry showing A fib with PVCs, rates of 58-64 Continue carvedilol and Eliquis Hypertension Hypertensive urgency on admission controlled after diuresis Continue losartan Hyperlipidemia Chronic, stable. Continue aspirin and atorvastatin. DVT Prophylaxis: on Eliquis Code Status: FULL CODE PCP: Dr Rashawn Obrien MD Disposition: Not medically cleared for discharge. Still requiring O2 and IV antibiotics. Patient seen in collaboration with Dr. Bhardwaj. Please see addendum. I spent a total of 50 minutes coordinating, documenting and providing care for this patient excluding time spent in the performance of separately billed services or time spent by another provider/QHP. Admission and Anticipated Discharge Date Admission Date: May 23, 2024 Supervising Physician Co-Signing Physician Notes Attending Addendum: Case reviewed with the advanced practitioner. I have reviewed the advanced practitioner's documentation on the date of service referenced in note, and I agree with, and take responsibility for the plan of care. please refer to her notes for full details patient seen and examined, records reviewed by myself as well diagnoses and plan of care as per advanced practitioner's notes I spent a total of 20 minutes coordinating, documenting, and providing care for this patient, excluding time spent in the performance of separately billed services or time spent by another provider/QHP. Quentin Bhardwaj MD Subjective Patient seen sitting up in bed on 2L NC States he is doing well this morning, SOB and orthopnea much improved Still having productive cough Denies fevers, chills, chest pain, abdominal pain, N/V/D Eating and drinking well Review of Systems Review of Systems: All systems reviewed & are unremarkable except as noted in HPI & below Physical Exam Physical Exam: VITALS: Reviewed and VSS. On 2L NC. GEN: Healthy appearing, well-developed male, NAD. PSYCH: Good Judgment. AOx3. Normal memory, mood, and affect. HEENT: Head NC/AT. Sclera white and conjunctiva pink. Nares without rhinorrhea. Nasal and oral mucosa pink. NECK: Supple, with no masses. CV: Irregular rate and rhythm, systolic murmur appreciated, no r/g. LUNGS: Lung sounds diminished on left side, crackles in right lower lung ABD: Soft, NT/ND, NBS, no masses or organomegaly. SKIN: Warm, well perfused. No skin rashes or abnormal lesions. MSK: No deformities, Normal gait. EXT: No clubbing or cyanosis. Compression stockings in place. NEURO: Ambulating with no limitations. Normal muscle strength and tone. No focal deficits. Results & Data Results & Data Vital Signs (Past 12 Hours) Vital Signs Temp Pulse Pulse Resp BP Pulse Ox O2 Del Method 05/27/24 07:37 Nasal Cannula 05/27/24 07:32 36.5 C 65 19 115/73 97 Room Air 05/27/24 02:50 36.4 C L 66 18 125/68 94 Nasal Cannula 05/26/24 23:20 36.5 C 69 16 122/72 95 Nasal Cannula 05/26/24 22:01 59 L O2 Flow Rate 05/27/24 07:37 2 05/27/24 07:32 05/27/24 02:50 2.0 05/26/24 23:20 2 05/26/24 22:01 Laboratory Results Short CBC 05/27/24 Range/Units 05:18 WBC 10.04 (4.8-10.8) K/ul Hgb 10.3 L (14.0-18.0) g/dl Hct 35.2 L (42.0-52.0) % Plt Count 292 (130-400) K/uL BMP 05/27/24 05:18 Sodium 138 Potassium 3.9 Chloride 98 Carbon Dioxide 35 H BUN 25 H Creatinine 0.97 Glucose 90 Calcium 9.3 I have independently reviewed and interpreted patient's admitting labs including CBC, BMP, and mag. Medications Administered Current Inpatient Medications Acetaminophen (Acetaminophen 325 Mg Tab) 650 mg PO Q4H PRN PRN Reason: Pain or Fever Stop: 06/22/24 10:56 Allopurinol ([facility]ol 300 Mg Tab) [facility] [place]: 06/23/24 08:59 Last Admin: 05/27/24 08:15 Dose: 300 mg Apixaban (Apixaban 5 Mg Tablet) 5 mg PO BID [facility] Stop: 06/22/24 20:59 Last Admin: 05/27/24 08:15 Dose: 5 mg Aspirin (Aspirin 81 Mg Ectab) [facility] [place] Stop: 06/23/24 08:59 Last Admin: 05/27/24 08:15 Dose: 81 mg Atorvastatin Calcium (Atorvastatin 40 Mg Tab) [facility] [place] Stop: 06/23/24 08:59 Last Admin: 05/27/24 08:14 Dose: 40 mg Carvedilol (Carvedilol 12.5 Mg Tab) 12.[facility] [place] Stop: 06/22/24 16:59 Last Admin: 05/27/24 08:15 Dose: 12.5 mg Doxycycline Hyclate (Doxycycline Hyclate 100 Mg Cap) 100 mg PO BID [facility] Stop: 06/02/24 11:29 Last Admin: 05/27/24 08:14 Dose: 100 mg Furosemide (Furosemide 40 Mg/4 Ml Vial) 40 mg IV [id number] [facility] Stop: 06/23/24 09:14 Last Admin: 05/27/24 08:15 Dose: 40 mg Cefepime HCl (Maxipime 2000mg) 2,000 mg in 20 mls @ 5 mls/min IV Q8H [facility]; Protocol Stop: 06/02/24 11:59 Last Admin: 05/27/24 03:11 Dose: 5 mls/min Losartan Potassium (Losartan Potassium 50 Mg Tab) 50 mg PO DAILY [facility] Stop: 06/23/24 08:59 Last Admin: 05/27/24 08:15 Dose: 50 mg Prednisolone Acetate (Prednisolone Acetate 1% Op Susp 5 Ml Btl) 1 drops OP QAM [facility] Stop: 06/23/24 08:59 Last Admin: 05/27/24 08:15 Dose: 1 drops Spironolactone (Spironolactone 12.5 Mg Tab) 12.5 mg PO DAILY [facility] Stop: 06/22/24 14:59 Last Admin: 05/27/24 08:14 Dose: 12.5 mg (3) CAD (coronary artery disease) Associated angina: unspecified whether angina present Coronary Disease- Associated Artery/Lesion type: [place] artery [place] vs. transplanted heart: [place] heart Qualified Code(s): I25.10 - Atherosclerotic heart disease of [place] coronary artery without angina pectoris (5) Atrial fibrillation Atrial fibrillation type: paroxysmal Qualified Code(s): I48.0 - Paroxysmal atrial fibrillation (6) Hypertension Hypertension type: unspecified Qualified Code(s): I10 - Essential (primary) hypertension (7) Hyperlipidemia Hyperlipidemia type: unspecified Qualified Code(s): E78.5 - Hyperlipidemia, unspecified
[2024-05-27] MEDS: POTASSIUM CHLORIDE CRTAB 20 MEQ TABCR PO ONE (12:25)
--- NOTE | 2024-05-27 13:13 | Cardiology Progress Note ---
Date of Service May 27, 2024 Assessment & Plan (1) Acute respiratory failure with hypoxia: (2) Acute on chronic diastolic heart failure with preserved ejection fraction: (3) Hypertensive urgency: (4) Atrial fibrillation: (5) Non-sustained ventricular tachycardia: (6) Left lower lobe pneumonia: Plan 05/23/24 Patient is several months post op CABG and AVR, presenting with complaints of worsening SOB, orthopnea, abdominal bloating and edema consistent with acute on chronic heart failure with preserved LVEF. Recommend IV diuretics. Received 20 mg IV x1 dose in the ER and patient reports frequent urination this morning afterwards. Repeat Furosemide 40 mg IV x1 this afternoon. Start spironolactone 12.5 mg daily, first dose this afternoon. Monitor I+O's Daily weight with standing scale. Echo with preserved LVEF, normal gradients post TAVR Persistent afib, controlled rates. continue anticoagulation with Eliquis Continue carvedilol for rate control. Hypertensive urgency -continue losartan 50 mg daily and carvedilol 12.5 mg BID for now. -BP should improve with diuresis. Continue furosemide 40 mg IV today. -Spironolactone 12.5 mg daily added. 05/24/24: Good urine output overnight with IV furosemide. Improving CHF symptoms. Furosemide 40 mg IV BID today. Continue spironolactone 12.5 mg daily (added yesterday) Monitor I+O's. Daily weight with standing scale. Monitor renal function and electrolytes. will need loop diuretic and spironolactone on discharge. BP improved with IV diuresis and topical nitrates Continue losartan and carvedilol as well. Echo with preserved LVEF. chronic/persistent afib. Rates controlled Continue anticoagulation with Eliquis. 05/25/24: Ongoing diuresis over the last 24 hours. Still requiring supplemental O2 with orthopnea. Repeat chest xray in AM Continue furosemide 40 mg IV BID Continue spironolactone 25 mg daily stop topical nitrates BP improved. Continue losartan. Patient with non sustained VT this morning. Symptomatic. electrolytes acceptable. normal LVEF this admission. Consider changing carvedilol to metoprolol succinate. Monitor on telemetry. 05/26/24: Fluid status improving with ongoing diuresis. Approaching euvolemic state. Chest xray improving. Orthopnea improving. Attempt to wean off supplemental O2 today. Continue IV diuretics for today Anticipate possible transitioning to oral loop diuretics tomorrow. Continue spironolactone. No recurrent VT overnight stable potassium and magnesium. Persistent afib, with controlled rates. continue carvedilol and Eliquis. 05/27/24: Volume status improving with IV diuretics. I+O's not measured accurately Weight trending down since admission. Attempt to wean supplemental O2 today. Continue antibiotics for probable pneumonia. Continue IV lasix today with spironolactone. Likely transition to oral diuretics in the next 24 hours. Would consider torsemide 20 mg daily on discharge with spironolactone. Persistent afib, rates controlled. Continue carvedilol and Eliquis Case discussed with Dr. Morataya I spent a total of 30 minutes on the date of service in preparation, delivery, and documentation of the care provided to this patient, excluding any time spent in the performance of separately billed services. Michelle Contreras PA-C Department of Cardiology, [facility] This chart was completed in part utilizing Speech Voice Recognition Software. Grammatical errors, random word insertions, pronoun errors, and incomplete sentences are an occasional consequence of this system due to software limitations, ambient noise, and hardware issues. Any formal questions or concerns about the content, text, or information contained within the body of this dictation should be directly addressed to the provider for clarification. Admission and Anticipated Discharge Date Admission Date: May 23, 2024 Supervising Physician Co-Signing Physician Notes I have personally performed a history and physical examination on the patient. I have reviewed the advance practitioner's documentation, and I agree with, and take responsibility for the plan of care. 74-year-old patient with acute hypoxic respiratory failure due to acute HFpEF. Echocardiogram demonstrating hyperdynamic LV function and normal bioprosthetic aortic valve function. Telemetry reveals atrial fibrillation in the 70s.Clinically improving with IV diuresis and antibiotic therapy. Recommendations: * Lasix 40 mg IV twice daily * Possible transition to oral diuretic therapy in 24 hours. * Spironolactone 12.5 mg daily (added 05/23/2024). * Consider torsemide 20 mg daily at discharge. * Continue carvedilol, losartan, aspirin, atorvastatin, and Eliquis as ordered. * Monitor fluid balance, daily, GFR, and electrolytes. * Maintain serum potassium greater than 4.0, and serum magnesium greater than 2.0. I spent a total of 30 minutes on the date of service in preparation, delivery, and documentation of the care provided to this patient, excluding any time spent in the performance of separately billed services. Semaj Morataya DO, [facility] Subjective Patient resting in bed, feeling much better each day. SOB improving. Still has cough with yellow sputum production. chest xray yesterday with questionable ongoing infiltrate/pneumonia and started on antibiotics. Slept well last night without orthopnea, PND. Still requiring O2. Will try to wean today Review of Systems Review of Systems: All systems reviewed & are unremarkable except as noted in HPI & below Physical Exam Constitutional: WD/WN, vitals as above + obese; no acute distress Neck: trachea midline, no thyromegaly + thick neck Respiratory: no respiratory distress and no labored breathing Auscultation: + diminished lung sounds; no crackles and no wheezes Cardiovascular: Rate/Rhythm: + irregularly irregular Heart Sounds: normal S1, normal S2 and + murmur (II/ systolic murmur) Vessels: no JVD Extremities: no edema Gastrointestinal (Abdomen): normal bowel sounds, soft, nontender, no hepatosplenomegaly Neurologic: PERRL, EOMI, accommodation nl, no face palsy, no dysarthria Psychiatric: A+Ox3, euthymic affect Results & Data Vital Signs (Past 12 Hours) Vital Signs Temp Pulse Resp BP BP Pulse Ox O2 Del Method 05/27/24 12:19 106/62 93 Room Air 05/27/24 11:29 91 Room Air 05/27/24 11:15 36.4 C L 69 17 98/60 L 95 Nasal Cannula 05/27/24 07:37 Nasal Cannula 05/27/24 07:32 36.5 C 65 19 115/73 97 Room Air 05/27/24 02:50 36.4 C L 66 18 125/68 94 Nasal Cannula O2 Flow Rate 05/27/24 12:19 05/27/24 11:29 05/27/24 11:15 1 05/27/24 07:37 2 05/27/24 07:32 05/27/24 02:50 2.0 Laboratory Results CBC 05/27/24 Range/Units 05:18 WBC 10.04 (4.8-10.8) K/ul RBC 4.61 L (4.70-6.10) M/uL Hgb 10.3 L (14.0-18.0) g/dl Hct 35.2 L (42.0-52.0) % Plt Count 292 (130-400) K/uL Comprehensive Metabolic Panel 05/27/24 Range/Units 05:18 Sodium 138 (136-145) mmol/L Potassium 3.9 (3.5-5.1) mmol/L Chloride 98 (98-107) mmol/L Carbon Dioxide 35 H (21-32) mmol/L BUN 25 H (6-23) mg/dl Creatinine 0.97 (0.6-1.4) mg/dl Glucose 90 (70-99(Fasting)) mg/dl Calcium 9.3 (8.6-10.3) mg/dl Intake and Output 05/26/24 05/27/24 05/27/24 22:59 06:59 14:59 Intake Total 150 / 700 250 / 700 Output Total 800 / 802 900 / 900 Balance 150 / -102 -550 / -102 -900 / -900 Intake: Oral 150 / 700 250 / 700 Output: Urine 800 / 802 900 / 900 Other: # Unmeasured Voids 1 1 Weight 91 kg Weight Measurement Method Standing Scale Diagnostic Findings telemetry reviewed: Afib with controlled rates in the s Chest xray reviewed from yesterday: IMPRESSION: 1. Interval regression of the right lower zone airspace opacities. 2. No significant changes in the airspace opacities were seen in the left lower zone of the lung. 3. Mild left-sided pleural effusion.Stable 4. Cardiomegaly with bilateral hilar congestion. Stable. Medications Administered Current Inpatient Medications Acetaminophen (Acetaminophen 325 Mg Tab) 650 mg PO Q4H PRN PRN Reason: Pain or Fever Stop: 06/22/24 10:56 Allopurinol (Allopurinol 300 Mg Tab) [facility] [place] Stop: 06/23/24 08:59 Last Admin: 05/27/24 08:15 Dose: 300 mg Apixaban (Apixaban 5 Mg Tablet) 5 mg PO BID [facility] Stop: 06/22/24 20:59 Last Admin: 05/27/24 08:15 Dose: 5 mg Aspirin (Aspirin 81 Mg Ectab) 81 mg PO QAM [facility] Stop: 06/23/24 08:59 Last Admin: 05/27/24 08:15 Dose: 81 mg Atorvastatin Calcium (Atorvastatin 40 Mg Tab) 40 mg PO QAM [facility] Stop: 06/23/24 08:59 Last Admin: 05/27/24 08:14 Dose: 40 mg Carvedilol (Carvedilol 12.5 Mg Tab) 12.5 mg PO BIDM [facility] Stop: 06/22/24 16:59 Last Admin: 05/27/24 08:15 Dose: 12.5 mg Doxycycline Hyclate (Doxycycline Hyclate 100 Mg Cap) 100 mg PO BID [facility] Stop: 06/02/24 11:29 Last Admin: 05/27/24 08:14 Dose: 100 mg Cefepime HCl (Maxipime 2000mg) 2,000 mg in 20 mls @ 5 mls/min IV Q8H [facility]; Protocol Stop: 06/02/24 11:59 Last Admin: 05/27/24 11:32 Dose: 5 mls/min Losartan Potassium (Losartan Potassium 50 Mg Tab) 50 mg PO DAILY [facility] Stop: 06/23/24 08:59 Last Admin: 05/27/24 08:15 Dose: 50 mg Prednisolone Acetate (Prednisolone Acetate 1% Op Susp 5 Ml Btl) 1 drops OP QAM [facility] Stop: 06/23/24 08:59 Last Admin: 05/27/24 08:15 Dose: 1 drops Spironolactone (Spironolactone 12.5 Mg Tab) 12.5 mg PO DAILY [facility] Stop: 06/22/24 14:59 Last Admin: 05/27/24 08:14 Dose: 12.5 mg (4) Atrial fibrillation Atrial fibrillation type: paroxysmal Qualified Code(s): I48.0 - Paroxysmal atrial fibrillation
[2024-05-27] MEDS: ADVANCED PROBIOTIC 625 MG CAPSULE PO SCH (17:15)
--- NOTE | 2024-05-27 22:36 | CT Scan Report ---
Exam(s): CT CHEST Without Contrast EXAM: CT Chest Without Intravenous Contrast CLINICAL HISTORY: hemoptysis, r/o mass. TECHNIQUE: Axial computed tomography images of the chest without intravenous contrast. CTDI is 21.33 mGy and DLP is 736.31 mGy-cm. Automated exposure control was utilized for the study. A dose lowering technique was utilized adhering to the principles of ALARA. COMPARISON: No relevant prior studies available. FINDINGS: Limitations: There is respiratory artifact, which degrades image quality throughout the examination. Lungs: Accounting for limitations with diffuse respiratory artifact, there is no obvious pulmonary mass or definite source for the reported hemoptysis. Minimal subsegmental presumed compressive atelectatic changes involving the inferior lingular segments and left lower lobe adjacent to the pleural effusion. Pleural space: Moderate layering hypodense left pleural effusion, measuring 4.1 cm in diameter. No loculation. No right pleural effusion. No pneumothorax. Heart: The cardiac chambers are enlarged. Extensive coronary artery calcification. Postoperative changes consistent with prior aortic valve replacement and prior CABG. Trace pericardial effusion. Bones/joints: Intact sternal hardware. No acute osseous abnormality. No dislocation. Soft tissues: Unremarkable. Vasculature: Unremarkable. No thoracic aortic aneurysm. Lymph nodes: Nonspecific paratracheal lymph nodes measuring up to 14 mm in short axis diameter. No appreciable hilar adenopathy. IMPRESSION: 1. Moderate layering hypodense left pleural effusion, measuring 4.1 cm in diameter. No loculation. 2. Accounting for limitations with diffuse respiratory artifact, there is no obvious pulmonary mass or definite source for the reported hemoptysis. Minimal subsegmental presumed compressive atelectatic changes involving the inferior lingular segments and left lower lobe adjacent to the pleural effusion. Electronically signed by: Yamil Skinner MD 05/27/24 22:34 PM
[2024-05-28 06:34] LABS: Hemoglobin 10.5 g/dl (14.0-18.0); Mean Corpuscular Hemoglobin 22.2 pg (25.0-34.0); Mean Corpuscular Hgb Conc 29.2 g/dL (32.0-36.0); Mean Corpuscular Volume 76.3 fL (80.0-100.0); Mean Platelet Volume 10.5 fL (9.4-12.4); Platelet Count 280 K/uL (130-400); RDW Coefficient of Variation 18.1 % (11.5-14.5); RDW Standard Deviation 49.7 fL (36.4-46.3); Red Blood Count 4.72 M/uL (4.70-6.10); White Blood Count 9.03 K/ul (4.8-10.8)
[2024-05-28 07:22] LABS: BUN Creatinine Ratio 25.3 (10-20); Calcium 9.6 mg/dl (8.6-10.3); Creatinine Clr Calc Pharmacy 72.8 ml/min; Potassium 3.8 mmol/L (3.5-5.1)
[2024-05-28 11:26] VITALS: RESP 18; TEMP 97.7; O2SAT 92
--- NOTE | 2024-05-28 14:01 | Cardiology Progress Note ---
Date of Service May 28, 2024 Assessment & Plan (1) Acute respiratory failure with hypoxia: (2) Acute on chronic diastolic heart failure with preserved ejection fraction: (3) Hypertensive urgency: (4) Atrial fibrillation: (5) Non-sustained ventricular tachycardia: (6) Left lower lobe pneumonia: Plan 05/23/24 Patient is several months post op CABG and AVR, presenting with complaints of worsening SOB, orthopnea, abdominal bloating and edema consistent with acute on chronic heart failure with preserved LVEF. Recommend IV diuretics. Received 20 mg IV x1 dose in the ER and patient reports frequent urination this morning afterwards. Repeat Furosemide 40 mg IV x1 this afternoon. Start spironolactone 12.5 mg daily, first dose this afternoon. Monitor I+O's Daily weight with standing scale. Echo with preserved LVEF, normal gradients post TAVR Persistent afib, controlled rates. continue anticoagulation with Eliquis Continue carvedilol for rate control. Hypertensive urgency -continue losartan 50 mg daily and carvedilol 12.5 mg BID for now. -BP should improve with diuresis. Continue furosemide 40 mg IV today. -Spironolactone 12.5 mg daily added. 05/24/24: Good urine output overnight with IV furosemide. Improving CHF symptoms. Furosemide 40 mg IV BID today. Continue spironolactone 12.5 mg daily (added yesterday) Monitor I+O's. Daily weight with standing scale. Monitor renal function and electrolytes. will need loop diuretic and spironolactone on discharge. BP improved with IV diuresis and topical nitrates Continue losartan and carvedilol as well. Echo with preserved LVEF. chronic/persistent afib. Rates controlled Continue anticoagulation with Eliquis. 05/25/24: Ongoing diuresis over the last 24 hours. Still requiring supplemental O2 with orthopnea. Repeat chest xray in AM Continue furosemide 40 mg IV BID Continue spironolactone 25 mg daily stop topical nitrates BP improved. Continue losartan. Patient with non sustained VT this morning. Symptomatic. electrolytes acceptable. normal LVEF this admission. Consider changing carvedilol to metoprolol succinate. Monitor on telemetry. 05/26/24: Fluid status improving with ongoing diuresis. Approaching euvolemic state. Chest xray improving. Orthopnea improving. Attempt to wean off supplemental O2 today. Continue IV diuretics for today Anticipate possible transitioning to oral loop diuretics tomorrow. Continue spironolactone. No recurrent VT overnight stable potassium and magnesium. Persistent afib, with controlled rates. continue carvedilol and Eliquis. 05/27/24: Volume status improving with IV diuretics. I+O's not measured accurately Weight trending down since admission. Attempt to wean supplemental O2 today. Continue antibiotics for probable pneumonia. Continue IV lasix today with spironolactone. Likely transition to oral diuretics in the next 24 hours. Would consider torsemide 20 mg daily on discharge with spironolactone. 05/28/24 Heart rate and blood pressure currently well-controlled -Remains in atrial fibrillation with controlled ventricular rates He is euvolemic on exam Symptomatically feels that he is back to his baseline Optimized and stable for discharge from a cardiac perspective Recommend torsemide 20 mg daily along with Aldactone at discharge in addition to his apixaban, losartan aspirin and carvedilol Reviewed recommendations with attending service who agreed with plan Case discussed with Dr. Holt I spent a total of 30 minutes on the date of service in preparation, delivery, and documentation of the care provided to this patient, excluding any time spent in the performance of separately billed services. Idalmis Mccrary Department of Cardiology, [facility] This chart was completed in part utilizing Speech Voice Recognition Software. Grammatical errors, random word insertions, pronoun errors, and incomplete se ntences are an occasional consequence of this system due to software limitations, ambient noise, and hardware issues. Any formal questions or concerns about the content, text, or information contained within the body of this dictation should be directly addressed to the provider for clarification. Admission and Anticipated Discharge Date Admission Date: May 23, 2024 Supervising Physician Co-Signing Physician Notes I agree with the note above and assessment and plan as documented by SHADY Tipton. I provided 85 min of care to the patient in regards to management of heart failure and afib. Subjective 74-year-old male seen in consult urology follow-up in regard to acute on chronic diastolic CHF status post CABG and AVR. Was also managed for left lower lobe pneumonia during this admission. He is symptomatically feeling much better back to baseline advises that he had approximately 2 weeks of worsening lower extremity edema and progressive shortness of breath leading up to his hospitalization. Review of Systems Constitutional: no fever, no chills and no weakness Respiratory: no cough, no chest congestion and no dyspnea Cardiovascular: no chest pain, no dyspnea on exertion, no palpitations and no edema Physical Exam Constitutional: WD/WN, vitals as above well developed and well nourished; no acute distress Eyes: PERRL, conjunctivae normal, anicteric sclerae Neck: trachea midline, no thyromegaly Respiratory: normal respiratory effort, lungs clear to auscultation Cardiovascular: Rate/Rhythm: regular rate and + irregularly irregular Heart Sounds: + murmur Vessels: no JVD Extremities: no edema Skin: no rashes, warm and dry Psychiatric: A+Ox3, euthymic affect Results & Data Vital Signs (Past 12 Hours) Vital Signs Temp Pulse Pulse Pulse Pulse Pulse Resp 05/28/24 11:24 36.5 C 63 18 05/28/24 09:51 79 72 73 05/28/24 07:26 68 05/28/24 07:12 05/28/24 07:10 36.6 C 71 18 05/28/24 06:27 05/28/24 03:01 36.4 C L 68 16 Resp Resp Resp BP Pulse Ox Pulse Ox Pulse Ox 05/28/24 11:24 104/64 92 05/28/24 09:51 16 16 16 91 93 05/28/24 07:26 05/28/24 07:12 05/28/24 07:10 124/68 92 05/28/24 06:27 93 05/28/24 03:01 114/67 95 Pulse Ox O2 Del Method O2 Flow Rate 05/28/24 11:24 Room Air 05/28/24 09:51 93 05/28/24 07:26 05/28/24 07:12 Room Air 05/28/24 07:10 Room Air 05/28/24 06:27 Room Air 05/28/24 03:01 Nasal Cannula 1 Laboratory Results Laboratory Results WBC 9.03 K/ul (4.8-10.8) 05/28/24 05:35 RBC 4.72 M/uL (4.70-6.10) 05/28/24 05:35 Hgb 10.5 g/dl (14.0-18.0) L 05/28/24 05:35 Hct 36.0 % (42.0-52.0) L 05/28/24 05:35 MCV 76.3 fL (80.0-100.0) L 05/28/24 05:35 MCH 22.2 pg (25.0-34.0) L 05/28/24 05:35 MCHC 29.2 g/dL (32.0-36.0) L 05/28/24 05:35 RDW Std Deviation 49.7 fL (36.4-46.3) H 05/28/24 05:35 RDW Coeff of Shahnaz 18.1 % (11.5-14.5) H 05/28/24 05:35 Plt Count 280 K/uL (130-400) 05/28/24 05:35 MPV 10.5 fL (9.4-12.4) 05/28/24 05:35 Immature Gran % (Auto) 0.7 % 05/26/24 05:35 Neut % (Auto) 63.4 % 05/26/24 05:35 Lymph % (Auto) 19.5 % 05/26/24 05:35 [place] % (Auto) 12.0 % 05/26/24 05:35 Eos % (Auto) 3.5 % 05/26/24 05:35 Baso % (Auto) 0.9 % 05/26/24 05:35 Neut # (Auto) 7.05 K/uL (1.40-6.50) H 05/26/24 05:35 Lymph # (Auto) 2.17 K/uL (1.20-3.40) 05/26/24 05:35 [place] # (Auto) 1.33 K/uL (0.11-0.59) H 05/26/24 05:35 Eos # (Auto) 0.39 K/uL (0.00-0.50) 05/26/24 05:35 Baso # (Auto) 0.10 K/uL (0.00-0.20) 05/26/24 05:35 Immature Gran # (Auto) 0.08 K/uL (0.01-0.20) 05/26/24 05:35 PT 11.9 Seconds (9.0-12.0) 05/23/24 06:05 INR 1.1 (0.9-1.1) 05/23/24 06:05 Sodium 138 mmol/L (136-145) 05/28/24 05:35 Potassium 3.8 mmol/L (3.5-5.1) 05/28/24 05:35 Chloride 100 mmol/L (98-107) 05/28/24 05:35 Carbon Dioxide 35 mmol/L (21-32) H 05/28/24 05:35 Anion Gap 3 (3-11) 05/28/24 05:35 BUN 25 mg/dl (6-23) H 05/28/24 05:35 Creatinine 0.99 mg/dl (0.6-1.4) 05/28/24 05:35 Est Cr Clr Drug Dosing 72.8 ml/min 05/28/24 05:35 eGFR 80.44 05/28/24 05:35 BUN/Creatinine Ratio 25.3 (10-20) H 05/28/24 05:35 Glucose 95 mg/dl (70-99(Fasting)) 05/28/24 05:35 Calcium 9.6 mg/dl (8.6-10.3) 05/28/24 05:35 Phosphorus 5.4 mg/dl (2.5-4.9) H 05/25/24 05:25 Magnesium 2.0 mg/dl (1.7-2.4) 05/28/24 05:35 Total Bilirubin 0.9 mg/dl (0.2-1.0) 05/23/24 06:05 AST 16 U/L (13-39) 05/23/24 06:05 ALT 12 U/L (7-52) 05/23/24 06:05 Alkaline Phosphatase 88 U/L (34-104) 05/23/24 06:05 Troponin I High Sens 15.0 pg/ml (0-20) 05/25/24 09:55 B-Natriuretic Peptide 426 pg/ml (0-100) H 05/23/24 06:05 Total Protein 7.4 gm/dl (6.0-8.3) 05/23/24 06:05 Albumin 4.2 gm/dl (3.4-5.0) 05/23/24 06:05 Globulin 3.2 gm/dl (2.5-4.0) 05/23/24 06:05 Albumin/Globulin Ratio 1.3 (0.9-2) 05/23/24 06:05 Lipase 8 U/L (11-82) L 05/23/24 06:05 Procalcitonin < 0.02 ng/ml (0-0.5) 05/23/24 06:05 Urine Color Yellow 05/23/24 09:06 Urine Appearance Clear (Clear) 05/23/24 09:06 Urine pH 6.5 (4.5-7.5) 05/23/24 09:06 Ur Specific [place] 1.006 (1.000-1.030) 05/23/24 09:06 Urine Protein Negative (Negative) 05/23/24 09:06 Urine Glucose (UA) Negative (Negative) 05/23/24 09:06 Urine Ketones Negative (Negative) 05/23/24 09:06 Urine Blood Negative (Negative) 05/23/24 09:06 Urine Nitrite Negative (Negative) 05/23/24 09:06 Urine Bilirubin Negative (Negative) 05/23/24 09:06 Urine Urobilinogen Negative (Negative) 05/23/24 09:06 Ur Leukocyte Esterase 2+ (Negative) H 05/23/24 09:06 Urine WBC (Auto) 0-5 /hpf (0-5) 05/23/24 09:06 Urine RBC (Auto) 0-2 /hpf (0-2) 05/23/24 09:06 U Hyaline Cast (Auto) 0-2 /lpf (0-2) 05/23/24 09:06 U Epithel Cells (Auto) 0-2 /hpf (0-2) 05/23/24 09:06 Urine Bacteria (Auto) None Seen (None Seen) 05/23/24 09:06 Ethyl Alcohol mg/dL < 10.0 mg/dl (<10.0) 05/23/24 06:05 Adenovirus (PCR) Not Detected (NotDetected) 05/23/24 06:05 B. pertussis DNA (PCR) Not Detected (NotDetected) 05/23/24 06:05 B.parapertussis DNA PCR Not Detected (NotDetected) 05/23/24 06:05 C. pneumoniae DNA (PCR) Not Detected (NotDetected) 05/23/24 06:05 Coronavirus OC43 (PCR) Not Detected (NotDetected) 05/23/24 06:05 Coronavirus HKU1 (PCR) Not Detected (NotDetected) 05/23/24 06:05 Coronavirus 229E (PCR) Not Detected (NotDetected) 05/23/24 06:05 SARS-CoV-2 (PCR) Not Detected (NotDetected) 05/23/24 06:05 Coronavirus NL63 (PCR) Not Detected (NotDetected) 05/23/24 06:05 Human Metapneumovir PCR Not Detected (NotDetected) 05/23/24 06:05 Influenza Type A (PCR) Not Detected (NotDetected) 05/23/24 06:05 Influenza Type B (PCR) Not Detected (NotDetected) 05/23/24 06:05 M. pneumoniae (PCR) Not Detected (NotDetected) 05/23/24 06:05 Parainfluenza 1 (PCR) Not Detected (NotDetected) 05/23/24 06:05 Parainfluenza 2 (PCR) Not Detected (NotDetected) 05/23/24 06:05 Parainfluenza 3 (PCR) Not Detected (NotDetected) 05/23/24 06:05 Parainfluenza 4 (PCR) Not Detected (NotDetected) 05/23/24 06:05 RSV (PCR) Not Detected (NotDetected) 05/23/24 06:05 Entero/Rhino (PCR) Not Detected (NotDetected) 05/23/24 06:05 Impressions Chest X-Ray 05/26/24 08:00 EXAM: XR chest 1V portable CLINICAL HISTORY: re-evaluate CHF; opacities TECHNIQUE: An X-ray image of the chest is obtained in 1 AP projection. COMPARISON: 05/23/2024 FINDINGS: Pulmonary Parenchyma: Interval regression of the right lower zone airspace opacities. No significant changes of the airspace opacities were seen in the left lower zone of the lung. Obliteration of left costophrenic angle. Right costophrenic angle is unremarkable. Hairline thickening of the minor fissure. Heart and Mediastinum: Cardiomegaly with bilateral hilar congestion. No mediastinal widening or masses. No hilar or mediastinal lymphadenopathy. Bony Thorax: Bony thorax appears intact without fractures or deformities. Sternotomy sutures are noted. Soft Tissues: Soft tissues overlying the chest wall are unremarkable. IMPRESSION: 1. Interval regression of the right lower zone airspace opacities. 2. No significant changes in the airspace opacities were seen in the left lower zone of the lung. 3. Mild left-sided pleural effusion.Stable 4. Cardiomegaly with bilateral hilar congestion. Stable. Electronically signed by Duy Ramirez 05-26-2024 07:[address] 05/27/24 15:58 Exam(s): CT CHEST Without Contrast EXAM: CT Chest Without Intravenous Contrast CLINICAL HISTORY: hemoptysis, r/o mass. TECHNIQUE: Axial computed tomography images of the chest without intravenous contrast. CTDI is 21.33 mGy and DLP is 736.31 mGy-cm. Automated exposure control was utilized for the study. A dose lowering technique was utilized adhering to the principles of ALARA. COMPARISON: No relevant prior studies available. FINDINGS: Limitations: There is respiratory artifact, which degrades image quality throughout the examination. Lungs: Accounting for limitations with diffuse respiratory artifact, there is no obvious pulmonary mass or definite source for the reported hemoptysis. Minimal subsegmental presumed compressive atelectatic changes involving the inferior lingular segments and left lower lobe adjacent to the pleural effusion. Pleural space: Moderate layering hypodense left pleural effusion, measuring 4.1 cm in diameter. No loculation. No right pleural effusion. No pneumothorax. Heart: The cardiac chambers are enlarged. Extensive coronary artery calcification. Postoperative changes consistent with prior aortic valve replacement and prior CABG. Trace pericardial effusion. Bones/joints: Intact sternal hardware. No acute osseous abnormality. No dislocation. Soft tissues: Unremarkable. Vasculature: Unremarkable. No thoracic aortic aneurysm. Lymph nodes: Nonspecific paratracheal lymph nodes measuring up to 14 mm in short axis diameter. No appreciable hilar adenopathy. IMPRESSION: 1. Moderate layering hypodense left pleural effusion, measuring 4.1 cm in diameter. No loculation. 2. Accounting for limitations with diffuse respiratory artifact, there is no obvious pulmonary mass or definite source for the reported hemoptysis. Minimal subsegmental presumed compressive atelectatic changes involving the inferior lingular segments and left lower lobe adjacent to the pleural effusion. Electronically signed by: Yamil Skinner MD 05/27/24 22:34 PM Diagnostic Findings CBC 05/28/24 Range/Units 05:35 WBC 9.03 (4.8-10.8) K/ul RBC 4.72 (4.70-6.10) M/uL Hgb 10.5 L (14.0-18.0) g/dl Hct 36.0 L (42.0-52.0) % Plt Count 280 (130-400) K/uL Comprehensive Metabolic Panel 05/28/24 Range/Units 05:35 Sodium 138 (136-145) mmol/L Potassium 3.8 (3.5-5.1) mmol/L Chloride 100 (98-107) mmol/L Carbon Dioxide 35 H (21-32) mmol/L BUN 25 H (6-23) mg/dl Creatinine 0.99 (0.6-1.4) mg/dl Glucose 95 (70-99(Fasting)) mg/dl Calcium 9.6 (8.6-10.3) mg/dl Intake and Output 05/27/24 05/28/24 05/28/24 22:59 06:59 14:59 Intake Total 325 / 525 200 / 525 Output Total 600 / 2000 500 / 2000 Balance -275 / -1475 -300 / -1475 Intake: Oral 325 / 525 200 / 525 Output: Urine 600 / 2000 500 / 2000 Other: Weight 90.9 kg 91.6 kg Weight Measurement Method Standing Scale Patient Weight 05/29/24 06:59 Weight 91.6 kg (4) Atrial fibrillation Atrial fibrillation type: paroxysmal Qualified Code(s): I48.0 - Paroxysmal atrial fibrillation
[2024-05-28 14:35] VITALS: BP 106/62; PULSE 66
--- NOTE | 2024-05-28 17:32 | Discharge Summary ---
Discharge Summary Date of Service May 28, 2024 Principal Dx & Hospital Course #1 = Principal Diagnosis (1) Acute respiratory failure with hypoxia: (2) Acute diastolic (congestive) heart failure: (3) CAD (coronary artery disease): (4) Severe aortic stenosis: (5) Atrial fibrillation: (6) Hypertension: (7) Hyperlipidemia: Plan 74 year old male with PMH significant for CAD s/p CABG x3 (03/01), severe s/p AVR (03/01), atrial fibrillation on Eliquis, HTN, and dyslipidemia who presented to the ED with SOB both at rest and with exertion and was found to be in acute diastolic HF. Acute respiratory failure Acute diastolic heart failure CAD s/p CABG x 3 (03/01) Severe s/p AVR (03/01) Possible component of Pneumonia Work-up in the ED on 05/23 showed elevated BNP at 426 and CXR findings c/w fluid overload and left pleural effusion. Initially started on bipap due to increased WOB. Cardiology consulted. Echo with EF>70%, severe LVH, moderate LA dilation, normal gradient bioprosthetic AV. CXR findings on 05/26 still demonstrating opacity. Sputum culture gram stain with many gram positive cocci and moderate gram negative cocci. Culture heavy normal julio cesar. Patient evaluated by cardiology service Placed on IV Lasix plus p.o. spironolactone Patient diuresed well Chest x-ray showing improvement of bilateral pleural effusion CT chest still showing residual left-sided pleural effusion Cleared for discharge by cardiology service Transition to p.o. torsemide 20 mg daily and spironolactone 12.5 mg p.o. daily ff up with Circuit Manager in 1-2 weeks Also given cefepime plus doxycycline for possible component of pneumonia as patient was reporting productive cough, occasionally with hemoptysis CT chest without contrast did not show any masses 3 more days of Cefuroxime plus doxycycline to complete 7-day course of antibiotics Repeat chest imaging studies in 1 to 2 weeks Paroxysmal atrial fibrillation Telemetry showing A fib with PVCs, rates of 58-64 Continue carvedilol and Eliquis Hypertension Hypertensive urgency on admission controlled after diuresis Continue losartan Hyperlipidemia Chronic, stable. Continue aspirin and atorvastatin. DVT Prophylaxis: on Eliquis Code Status: FULL CODE PCP: Dr Rashawn Obrien MD Disposition: d/c home ff up with PCP in 1 week ff up with [facility] in 1-2 weeks Notes For Next Care Provider Medication Changes From Visit Torsemide Spironolactone Cefuroxime, Doxycycline Admission HPI Per Admitting Provider This is a 74 y/o male with recent CABG x3 due to CAD and AVR for severe AoS (Feb 2024), atrial fibrillation, on chronic AC, HTN, dyslipidemia, and other history as outlined below who presents to the ED today with shortness of breath both at rest and with exertion. He reports that he was doing well initially after surgery but two weeks ago, he started with shortness of breath described as "couldn't catch my breath" - both at rest and with activity. Over the same time, he reports a cough productive of yellow mucus. Notes ongoing trouble sleeping since surgery due to orthopnea, PND. Now has to sleep sitting up. Associated right-sided chest pain for same amount of time - not associated with the coughing or any specific trigger, not associated with exertion, describes as sharp, 4/10, no radiation. Has dizziness with position changes. Chills but no documented fever, +runny nose, +congestion x 2 weeks, no ST. Occasional BOYD, no N/V/D/C, blood in stools, urinary symptoms (dysuria, hematuria, urinary frequency). Started with abdominal pain 1-2 days ago. Appetite is good. Notes that he wears compression socks most days which seems to help with edema. Currently taking Eliquis as prescribed. 02/16/24: CABG x3 MITCHELL to LAD, SVG to OM, PDA. AVR 25mm magna ease, occlusion left atrial appendage 45mm Med[employer] clip Admission Exam Per Admitting Provider General: On nasal cannula, ill appearing, resp distress Eyes: PERRL, conjunctivae normal, not pale, anicteric sclerae, EOM intact bilaterally ENMT: External ear and nose normal, oropharynx normal Respiratory: Resp distress with tachypnea, diminished breath sounds, +crackles Cardiovascular: Irregularly irregular Gastrointestinal (Abdomen): Abdomen is not distended, soft, non-tender to palpation, normal bowel sounds Musculoskeletal: +pedal edema Neurologic: Alert and oriented x 3, No focal weakness, sensation grossly intact Psychiatric: Alert and oriented x 3, euthymic affect, no depressed affect Discharge Exam General- oriented x 3, not in distress, speaks in sentences with no effort or accessory muscle use Eyes- anicteric Neck- no JVD Lungs- clear breath sounds bilaterally, no rales/wheezes Heart- normal rate, regular rhythm; no murmurs Abdomen- normal bowel sounds, nondistended, soft, nontender Extremities- no pretibial edema, no calf tenderness Neuro- alert, oriented x 3; no gross focal neurologic deficits Skin- warm & dry Updated Medication List Medication Instructions Recorded Confirmed Type allopurinol 300 mg tablet 300 mg PO QAM 12/07/19 05/23/24 History atorvastatin 40 mg tablet 40 mg PO QAM 12/07/19 05/23/24 History multivit,Ca,min-iron 8 mg-folic 1 tab PO QAM 05/06/23 05/23/24 History acid 200 mcg-lycopene 600 mcg tablet (Centrum Men) prednisolone acetate 1 % eye 1 drp ophthalmic (eye) QAM 05/06/23 05/23/24 Hi story drops,suspension sildenafil 100 mg tablet 100 mg PO DAILY PRN Erectile 05/06/23 05/23/24 History Dysfunction aspirin 81 mg tablet,delayed 81 mg PO QAM #30 tabs 02/11/24 05/23/24 Rx release Vitamin C 1 tab PO QAM 05/23/24 05/23/24 History apixaban 5 mg tablet (Eliquis) 5 mg PO BID 05/23/24 05/23/24 History calcium 1,200 mg PO QAM 05/23/24 05/23/24 History carvedilol 12.5 mg tablet 12.5 mg PO BID 05/23/24 05/23/24 History losartan 25 mg tablet 50 mg PO DAILY 05/23/24 05/23/24 History L.acidop,casei,lactis,rham-B.lact,love 1 cap PO DAILY 14 days #14 caps 05/28/24 Rx 625 mg (10 billion cell) capsule (Advanced Probiotic) cefuroxime axetil 500 mg tablet 500 mg PO BID 4 days #8 tabs 05/28/24 Rx doxycycline hyclate 100 mg capsule 100 mg PO BID 4 days #8 caps 05/28/24 Rx spironolactone 25 mg tablet 12.5 mg (1/2 x 25 mg) PO DAILY 30 05/28/24 Rx days #15 tabs torsemide 20 mg tablet 20 mg PO DAILY #30 tabs 05/28/24 Rx Hospital Stay Data Consultations 05/23/24 07:16 ED Decision to Admit Stat 05/23/24 10:57 Consult Cardiology Routine Diagnostic Imagining Performed Laboratory Results WBC 9.03 K/ul (4.8-10.8) 05/28/24 05:35 RBC 4.72 M/uL (4.70-6.10) 05/28/24 05:35 Hgb 10.5 g/dl (14.0-18.0) L 05/28/24 05:35 Hct 36.0 % (42.0-52.0) L 05/28/24 05:35 MCV 76.3 fL (80.0-100.0) L 05/28/24 05:35 MCH 22.2 pg (25.0-34.0) L 05/28/24 05:35 MCHC 29.2 g/dL (32.0-36.0) L 05/28/24 05:35 RDW Std Deviation 49.7 fL (36.4-46.3) H 05/28/24 05:35 RDW Coeff of Shahnaz 18.1 % (11.5-14.5) H 05/28/24 05:35 Plt Count 280 K/uL (130-400) 05/28/24 05:35 MPV 10.5 fL (9.4-12.4) 05/28/24 05:35 Immature Gran % (Auto) 0.7 % 05/26/24 05:35 Neut % (Auto) 63.4 % 05/26/24 05:35 Lymph % (Auto) 19.5 % 05/26/24 05:35 [place] % (Auto) 12.0 % 05/26/24 05:35 Eos % (Auto) 3.5 % 05/26/24 05:35 Baso % (Auto) 0.9 % 05/26/24 05:35 Neut # (Auto) 7.05 K/uL (1.40-6.50) H 05/26/24 05:35 Lymph # (Auto) 2.17 K/uL (1.20-3.40) 05/26/24 05:35 [place] # (Auto) 1.33 K/uL (0.11-0.59) H 05/26/24 05:35 Eos # (Auto) 0.39 K/uL (0.00-0.50) 05/26/24 05:35 Baso # (Auto) 0.10 K/uL (0.00-0.20) 05/26/24 05:35 Immature Gran # (Auto) 0.08 K/uL (0.01-0.20) 05/26/24 05:35 PT 11.9 Seconds (9.0-12.0) 05/23/24 06:05 INR 1.1 (0.9-1.1) 05/23/24 06:05 Sodium 138 mmol/L (136-145) 05/28/24 05:35 Potassium 3.8 mmol/L (3.5-5.1) 05/28/24 05:35 Chloride 100 mmol/L (98-107) 05/28/24 05:35 Carbon Dioxide 35 mmol/L (21-32) H 05/28/24 05:35 Anion Gap 3 (3-11) 05/28/24 05:35 BUN 25 mg/dl (6-23) H 05/28/24 05:35 Creatinine 0.99 mg/dl (0.6-1.4) 05/28/24 05:35 Est Cr Clr Drug Dosing 72.8 ml/min 05/28/24 05:35 eGFR 80.44 05/28/24 05:35 BUN/Creatinine Ratio 25.3 (10-20) H 05/28/24 05:35 Glucose 95 mg/dl (70-99(Fasting)) 05/28/24 05:35 Calcium 9.6 mg/dl (8.6-10.3) 05/28/24 05:35 Phosphorus 5.4 mg/dl (2.5-4.9) H 05/25/24 05:25 Magnesium 2.0 mg/dl (1.7-2.4) 05/28/24 05:35 Total Bilirubin 0.9 mg/dl (0.2-1.0) 05/23/24 06:05 AST 16 U/L (13-39) 05/23/24 06:05 ALT 12 U/L (7-52) 05/23/24 06:05 Alkaline Phosphatase 88 U/L (34-104) 05/23/24 06:05 Troponin I High Sens 15.0 pg/ml (0-20) 05/25/24 09:55 B-Natriuretic Peptide 426 pg/ml (0-100) H 05/23/24 06:05 Total Protein 7.4 gm/dl (6.0-8.3) 05/23/24 06:05 Albumin 4.2 gm/dl (3.4-5.0) 05/23/24 06:05 Globulin 3.2 gm/dl (2.5-4.0) 05/23/24 06:05 Albumin/Globulin Ratio 1.3 (0.9-2) 05/23/24 06:05 Lipase 8 U/L (11-82) L 05/23/24 06:05 Procalcitonin < 0.02 ng/ml (0-0.5) 05/23/24 06:05 Urine Color Yellow 05/23/24 09:06 Urine Appearance Clear (Clear) 05/23/24 09:06 Urine pH 6.5 (4.5-7.5) 05/23/24 09:06 Ur Specific [place] 1.006 (1.000-1.030) 05/23/24 09:06 Urine Protein Negative (Negative) 05/23/24 09:06 Urine Glucose (UA) Negative (Negative) 05/23/24 09:06 Urine Ketones Negative (Negative) 05/23/24 09:06 Urine Blood Negative (Negative) 05/23/24 09:06 Urine Nitrite Negative (Negative) 05/23/24 09:06 Urine Bilirubin Negative (Negative) 05/23/24 09:06 Urine Urobilinogen Negative (Negative) 05/23/24 09:06 Ur Leukocyte Esterase 2+ (Negative) H 05/23/24 09:06 Urine WBC (Auto) 0-5 /hpf (0-5) 05/23/24 09:06 Urine RBC (Auto) 0-2 /hpf (0-2) 05/23/24 09:06 U Hyaline Cast (Auto) 0-2 /lpf (0-2) 05/23/24 09:06 U Epithel Cells (Auto) 0-2 /hpf (0-2) 05/23/24 09:06 Urine Bacteria (Auto) None Seen (None Seen) 05/23/24 09:06 Ethyl Alcohol mg/dL < 10.0 mg/dl (<10.0) 05/23/24 06:05 Adenovirus (PCR) Not Detected (NotDetected) 05/23/24 06:05 B. pertussis DNA (PCR) Not Detected (NotDetected) 05/23/24 06:05 B.parapertussis DNA PCR Not Detected (NotDetected) 05/23/24 06:05 C. pneumoniae DNA (PCR) Not Detected (NotDetected) 05/23/24 06:05 Coronavirus OC43 (PCR) Not Detected (NotDetected) 05/23/24 06:05 Coronavirus HKU1 (PCR) Not Detected (NotDetected) 05/23/24 06:05 Coronavirus 229E (PCR) Not Detected (NotDetected) 05/23/24 06:05 SARS-CoV-2 (PCR) Not Detected (NotDetected) 05/23/24 06:05 Coronavirus NL63 (PCR) Not Detected (NotDetected) 05/23/24 06:05 Human Metapneumovir PCR Not Detected (NotDetected) 05/23/24 06:05 Influenza Type A (PCR) Not Detected (NotDetected) 05/23/24 06:05 Influenza Type B (PCR) Not Detected (NotDetected) 05/23/24 06:05 M. pneumoniae (PCR) Not Detected (NotDetected) 05/23/24 06:05 Parainfluenza 1 (PCR) Not Detected (NotDetected) 05/23/24 06:05 Parainfluenza 2 (PCR) Not Detected (NotDetected) 05/23/24 06:05 Parainfluenza 3 (PCR) Not Detected (NotDetected) 05/23/24 06:05 Parainfluenza 4 (PCR) Not Detected (NotDetected) 05/23/24 06:05 RSV (PCR) Not Detected (NotDetected) 05/23/24 06:05 Entero/Rhino (PCR) Not Detected (NotDetected) 05/23/24 06:05 Impressions EXAM: XR chest 1V portable CLINICAL HISTORY: Chest pain, nonspecific TECHNIQUE: An X-ray image of the chest is obtained in 1 AP projection. COMPARISON: 02/09/2024 FINDINGS: Pulmonary Parenchyma: Progression of bilateral airspace opacities, mainly seen in the lower zones of the lungs, more prominent on the left side. Obliteration of left costophrenic angle. Right costophrenic angle is unremarkable. Hairline thickening of the minor fissure. Heart and Mediastinum: Cardiomegaly with bilateral hilar congestion. No mediastinal widening or masses. No hilar or mediastinal lymphadenopathy. Bony Thorax: Bony thorax appears intact without fractures or deformities. Sternotomy sutures are noted. Soft Tissues: Soft tissues overlying the chest wall are unremarkable. IMPRESSION: 1. Interval progression of bilateral lower zones airspace opacities. 2. Mild left-sided pleural effusion. 3. Cardiomegaly with bilateral hilar congestion. 4. Comparing the previous x-ray dated 02/09/2024 there is interval progression in the findings. Electronically signed by Duy Ramirez 05-23-2024 07:11 AM Chest X-Ray 05/26/24 08:00 EXAM: XR chest 1V portable CLINICAL HISTORY: re-evaluate CHF; opacities TECHNIQUE: An X-ray image of the chest is obtained in 1 AP projection. COMPARISON: 05/23/2024 FINDINGS: Pulmonary Parenchyma: Interval regression of the right lower zone airspace opacities. No significant changes of the airspace opacities were seen in the left lower zone of the lung. Obliteration of left costophrenic angle. Right costophrenic angle is unremarkable. Hairline thickening of the minor fissure. Heart and Mediastinum: Cardiomegaly with bilateral hilar congestion. No mediastinal widening or masses. No hilar or mediastinal lymphadenopathy. Bony Thorax: Bony thorax appears intact without fractures or deformities. Sternotomy sutures are noted. Soft Tissues: Soft tissues overlying the chest wall are unremarkable. IMPRESSION: 1. Interval regression of the right lower zone airspace opacities. 2. No significant changes in the airspace opacities were seen in the left lower zone of the lung. 3. Mild left-sided pleural effusion.Stable 4. Cardiomegaly with bilateral hilar congestion. Stable. Electronically signed by Duy Ramirez 05-26-2024 07:[address] 05/27/24 15:58 Exam(s): CT CHEST Without Contrast EXAM: CT Chest Without Intravenous Contrast CLINICAL HISTORY: hemoptysis, r/o mass. TECHNIQUE: Axial computed tomography images of the chest without intravenous contrast. CTDI is 21.33 mGy and DLP is 736.31 mGy-cm. Automated exposure control was utilized for the study. A dose lowering technique was utilized adhering to the principles of ALARA. COMPARISON: No relevant prior studies available. FINDINGS: Limitations: There is respiratory artifact, which degrades image quality throughout the examination. Lungs: Accounting for limitations with diffuse respiratory artifact, there is no obvious pulmonary mass or definite source for the reported hemoptysis. Minimal subsegmental presumed compressive atelectatic changes involving the inferior lingular segments and left lower lobe adjacent to the pleural effusion. Pleural space: Moderate layering hypodense left pleural effusion, measuring 4.1 cm in diameter. No loculation. No right pleural effusion. No pneumothorax. Heart: The cardiac chambers are enlarged. Extensive coronary artery calcification. Postoperative changes consistent with prior aortic valve replacement and prior CABG. Trace pericardial effusion. Bones/joints: Intact sternal hardware. No acute osseous abnormality. No dislocation. Soft tissues: Unremarkable. Vasculature: Unremarkable. No thoracic aortic aneurysm. Lymph nodes: Nonspecific paratracheal lymph nodes measuring up to 14 mm in short axis diameter. No appreciable hilar adenopathy. IMPRESSION: 1. Moderate layering hypodense left pleural effusion, measuring 4.1 cm in diameter. No loculation. 2. Accounting for limitations with diffuse respiratory artifact, there is no obvious pulmonary mass or definite source for the reported hemoptysis. Minimal subsegmental presumed compressive atelectatic changes involving the inferior lingular segments and left lower lobe adjacent to the pleural effusion. Electronically signed by: Yamil Skinenr MD 05/27/24 22:34 PM Pending Results Patient Have Any Pending Studies at Discharge: No Discharge Instructions Given to Patient (Per Discharging Provider) PLEASE REFER TO YOUR NEW MEDICATION LIST AND FOLLOW INSTRUCTIONS CAREFULLY. YOUR NEW MEDICATIONS INCLUDE: Torsemide, spironolactone-diuretic/medications to increase urination for CHF Cefuroxime, Doxycyline -antibiotic for possible bronchitis/pneumonia Please take a probiotic daily for at least 2 weeks. PLEASE CALL YOUR PRIMARY CARE PHYSICIAN OR RETURN TO THE ER IF WITH WORSENING OF SYMPTOMS, INCLUDING Chest pain, shortness of breath, leg swelling, increasing cough, sputum production, fevers or chills, etc. FOLLOW UP WITH PRIMARY CARE PHYSICIAN OUTLINED ABOVE. Total Time Total Time Spent Total Time Spent (In Minutes): 40 minutes
== END 2024-05-28 15:05 | disposition home or self-care (01) | DRG 291 ==
LOC: ED 05:26 → SUATTDRO 09:07 → EDINP 09:07 → 2S 13:06